=== PATIENT | male | born 1935 | race Caucasian/White ===

== ENCOUNTER → 2017-11-23 12:59 | Outpatient (CLI) | payer MEDICARE, SELFPAY ==
[2017-11-23 15:37] LABS: PSA,Total - Annual Screen 0.52 ng/mL (0.00-4.00)
== END ==
PROVIDERS: Family Provider Internal Medicine; PCP Internal Medicine; Visit Provider Radiology Radiation Oncology
DX: Z12.5 Encounter for screening for malignant neoplasm of prostate (principal); Z85.46 Personal history of malignant neoplasm of prostate
CPT/HCPCS: 36415; 84153; G0103

== ENCOUNTER → 2018-01-30 10:03 | Outpatient (CLI) | payer MEDICARE, SELFPAY ==
--- NOTE | 2018-01-30 10:08 | ECHOD_ITS ---
Reason For Study: MV regurgitation Procedure This was a 2D Doppler, Color Flow transthoracic echocardiogram. Exam performed in department. Left Ventricle Normal LV size. Left ventricular systolic function is normal. Transmitral diastolic flow velocities suggest severe (stage 3) diastolic dysfunction. The estimated ejection fraction is 60 %. No regional wall motion abnormalities noted. Right Ventricle Normal RV size. Normal systolic function. Atria The left atrium is mildly enlarged. Normal right atrium. Mitral Valve There is mild to moderate mitral annular calcification. Mild (1+) eccentric mitral valve insufficiency. Tricuspid Valve Normal tricuspid valve. Mild (1+) tricuspid valve insufficiency. Pulmonary artery systolic pressure is 40 mmHg. Aortic Valve Trisinus/trileaflet aortic valve. Mild focal aortic valve calcification. Pulmonic Valve Normal pulmonic valve. Great Vessels Normal aortic root. The pulmonary artery is normal size. Normal inferior vena cava. Pericardium/Pleural No pericardial effusion. MMode/2D Measurements & Calculations LVIDd: 4.1 cm IVSd: 1.1 cm Ao root diam: 3.0 cm LVIDs: 2.6 cm LVPWd: 1.3 cm LA dimension: 4.0 cm RVDd: 2.7 cm FS: 35.7 % LAV(MOD-bp): 74.8 ml LA A4 area: 23.5 cm2 RA A4 area: 14.2 cm2 LAV(MOD-bp) Indexed: 41.6 ml/m2 LAV(MOD-sp2): 71.3 ml LAV(MOD-sp4): 77.5 ml Doppler Measurements & Calculations MV E max george: 144.3 cm/sec Lat Peak E' George: 9.2 cm/sec Med Peak E' George: 8.5 cm/sec MV A max george: 62.1 cm/sec E/E' lat: 15.8 E/E' med: 16.9 MV E/A: 2.3 Ao V2 max: 155.7 cm/sec LV V1 max: 114.8 cm/sec PA V2 max: 97.4 cm/sec Ao max P.7 mmHg LV V1 max P.3 mmHg PI end-d george: 101.1 cm/sec TR max george: 297.2 cm/sec TR max P.5 mmHg Interpretation Summary Normal LV size. Left ventricular systolic function is normal. Transmitral diastolic flow velocities suggest severe (stage 3) diastolic dysfunction The estimated ejection fraction is 60 %. Mild (1+) eccentric mitral valve insufficiency. Mild focal aortic valve calcification. Ordering Physician: CHIKIS Referring Physician: Isabelle Patiño Performed By: Calista Morrissey, FARRUKHCS, RVT
--- NOTE | 2018-01-30 10:08 | CDU_ITS ---
Reason For Study: Carotid stenosis Rt. Velocities/BP Lt. Velocities/BP Prox CCA 79.7/17.0 cm/sec. Prox CCA 95.6/19.3 cm/sec. Mid CCA 92.6/21.7 cm/sec. Mid CCA 96.2/24.0 cm/sec. Dist CCA 99.7/26.4 cm/sec. Dist CCA 89.1/25.2 cm/sec. Prox ICA 78.0/25.8 cm/sec. Prox ICA 73.3/25.8 cm/sec. Mid ICA 70.9/23.6 cm/sec. Mid ICA 93.2/29.9 cm/sec. Dist ICA 56.4/16.3 cm/sec. Dist ICA 81.9/27.1 cm/sec. Rt. ICA/CCA = .84. Lt. ICA/CCA = .97. Prox ECA 108.0/15.2 cm/sec. Prox ECA 90.3/15.8 cm/sec. Rt. Vert. 40.6/13.8 cm/sec. Lt. Vert. 37.1/10.5 cm/sec. Right Extracranial There is intimal thickening but no significant atherosclerotic plaque noted in the right common carotid artery. There is heterogeneous, irregular atherosclerotic plaque noted in the right internal carotid artery. The right internal carotid artery is very tortuous. There is no significant atherosclerotic plaque noted in the right external carotid artery. Antegrade flow is noted in the right vertebral artery. Left Extracranial There is intimal thickening but no significant atherosclerotic plaque noted in the left common carotid artery. There is heterogeneous, irregular atherosclerotic plaque noted in the left internal carotid artery. The left internal carotid artery is very tortuous. There is heterogeneous, irregular atherosclerotic plaque noted in the left external carotid artery. Antegrade flow is noted in the left vertebral artery. Procedure Carotid Duplex [id number]. Exam performed in department. Interpretation Summary Mild (<50%) stenosis right extracranial internal carotid. Mild (<50%) stenosis left extracranial internal carotid. Flow within the vertebral arteries is antegrade bilaterally. Ordering Physician: Janina Burgos Referring Physician: Isabelle Patiño Performed By: Kandy Chiu RVT
== END ==
PROVIDERS: Family Provider Internal Medicine; PCP Internal Medicine
DX: I65.23 Occlusion and stenosis of bilateral carotid arteries (principal); I34.0 Nonrheumatic mitral (valve) insufficiency
CPT/HCPCS: 93306; 93880

== ENCOUNTER → 2018-03-13 18:48 | Outpatient (CLI) | payer MEDICARE, SELFPAY ==
--- NOTE | 2018-03-13 18:56 | CT_ITS ---
STUDY: LOW DOSE CT LUNG CANCER SCREENING REASON FOR EXAM: Male, 82 years old. 70 pack-year smoking history. RADIATION DOSAGE (If Supplied By Facility): CTDIvol = ( 3.02 ) mGy, DLP = ( 99.68 ) mGycm TECHNIQUE: No contrast was administered. Low dose technique was utilized (average mAS-38 and kVp 120). 1.25 mm axial source images with a slice interval of 1.25-mm were reconstructed in lung windows. 2.5 mm axial source images with a slice interval of 2.5-mm were reconstructed in lung windows. 5.0 mm axial source images with a slice interval of 5.0-mm were reconstructed in soft tissue windows. Nodule measured using lung windows on PACS and/or independent workstation with automated measurement of minimum and maximum diameter. Nodule measurement reported as average diameter rounded to the nearest whole number. Growth is defined as an increase ins size of greater than 1.5 mm. COMPARISON: Chest, September 25, 2013. NODULES: Nodule #: 1 Density: Solid Lung location: Right middle lobe: 0.3 cm from pleura Location in series: Series Number: 2 Image: 126 Size - D1 x D2 mm: 3 x 4 mm: 4 mm average diameter Margin: Smooth Shape: Oval Calcification: Yes Fat: No Temporal comparison: None Nodule #: 2 Density: Solid Lung location: Right lower lobe: Pleural-based Location in series: Series Number: 2 Image: 124 Size - D1 x D2 mm: 2 x 2 mm: 2 mm average diameter Margin: Smooth Shape: Round Calcification: No Fat: No Temporal comparison: None Total lung nodules (excluding granulomas): 1 Emphysema: There is mild emphysematous changes throughout both lungs. Endobronchial lesion: None Aorta: There is atherosclerotic tortuosity of the thoracic aorta without aneurysm. Coronary arteries: There is extensive coronary artery calcifications. Heart: The heart is normal in size. There are calcifications at the root of the aorta and along the mitral valve plane. Pulmonary artery: Normal. Mediastinal nodes: There is nonspecific mediastinal lymphadenopathy. The largest node, in the paratracheal region, measures 1.3 x 0.7 x 1.4 cm. There is a calcified subcarinal lymph node. Calcified nodes are also seen in the left hilum. Other chest and abdominal findings: There are degenerative changes of the thoracic spine. Calcified granulomata are seen within the spleen. CT/Low Dose CT Lung Screening IMPRESSION: Lung-RADS category 2 - Continue annual screening with LDCT in 12 months. IMPORTANT NOTES FOR USE: ACR Lung-RADS Version 1.0 Assessment Categories Release Date: January 21, 2014 Category: Coded 0-4 bases on nodule(s) with highest degree of suspicion. Negative screen is defined as categories 1 and 2; a positive screen is defined as categories 3 and 4. Category 3 and 4A nodules that are unchanged on interval CT should be coded as category 2, and individuals returned to screening in 12 months. Category 4X: Category 3 or 4 nodules with additional imaging findings that increase the suspicion of lung cancer, such as spiculation, GGN that doubles in size in 1 year, enlarged lymph notes, etc. Category Modifiers: S (significant finding unrelated to lung cancer) and C (prior history of treated lung cancer) may be added to the 0-4 Lung-RADS Electronically Signed: Alfredo Massey DO at 11:21 EDT Tel [phone], Service support ,
== END ==
PROVIDERS: Family Provider Internal Medicine; PCP Internal Medicine; Visit Provider Internal Medicine
DX: Z12.2 Encounter for screening for malignant neoplasm of respiratory organs (principal); Z87.891 Personal history of nicotine dependence
CPT/HCPCS: G0297

== ENCOUNTER → 2018-11-30 14:53 | Outpatient (CLI) | payer MEDICARE, SELFPAY | PROVIDERS: Family Provider Internal Medicine; PCP Internal Medicine; Referring Provider Radiology Radiation Oncology; Visit Provider Radiology Radiation Oncology | DX: Z12.5 Encounter for screening for malignant neoplasm of prostate (principal); C61 Malignant neoplasm of prostate | CPT/HCPCS: 36415; 84153; G0103 ==

== ENCOUNTER → 2020-02-20 11:36 | Outpatient (CLI) | payer MEDICARE, SELFPAY ==
[2019-03-05 13:06] VITALS: BMI 26.9
== END ==
PROVIDERS: PCP Internal Medicine; Referring Provider Radiology Radiation Oncology; Visit Provider Radiology Radiation Oncology
DX: Z85.46 Personal history of malignant neoplasm of prostate (principal)
CPT/HCPCS: 36415; 84153

== ENCOUNTER → 2021-07-20 10:55 | Outpatient (CLI) | payer MEDICARE, SELFPAY ==
--- NOTE | 2021-07-20 | CYSPIN_PTH ---
PATIENT: SKYLER SANTOS LOC: [facility] U#:[id number] AGE/SX: 89/M ROOM: RE07/20/[address]: Dr. Esa Krishna MD : [id number] BED: DIS: SPEC #: [id number] RECD: 07/20/21 12:46 STATUS: DARLINE RETyree #: [id number] SLAVA: 07/20/21 00:[address]: Esa Krishna DEPT: CYTOLOGY RECD BY: Nilson Lenz ENTERED: 07/20/21 12:46 SP TYPE: CYSPIN FL OTHR DR: Dr. Isabelle Patiño, DO Tissues: Urine Procedures: Pap Stain (control) Special Stain Group II Cytospin Fluid HEADER OPERATION: Not noted PRE-OP DIAGNOSIS: Gross hematuria TISSUE SUBMITTED: Urine for cytology DIAGNOSIS CYTOLOGY Urine for cytology (cytospin): Rare cluster of mildly atypical cells noted. See comment. REID:[email or web address] 07/21/2021 COMMENT Correlation with clinical findings and appropriate follow up are necessary. CYTOLOGY STUDY Slides are reviewed. CYTOLOGY GROSS Received is 55 ml of dark yellow cloudy fluid labeled with the patient's name and and designated per the requisition as urine. Submitted for cytology preparation. / dilshad 07/20/2021 TC:5 CPT: 38253
[2021-07-20 11:43] LABS: Cytology, Body Fluid / CSF SEE PATHOLOGY REPORT
[2021-07-20 11:58] LABS: PSA,Total- Diagnostic 0.17 ng/mL (0.0-4.0)
== END ==
LOC: LAB 10:58 → LABSPEC 11:33
PROVIDERS: PCP Internal Medicine; Referring Provider Urology; Visit Provider Urology
DX: C61 Malignant neoplasm of prostate (principal); R31.0 Gross hematuria
CPT/HCPCS: 36415; 84153; 88108; 88313

== ENCOUNTER → 2022-03-16 | Outpatient (CLI) | payer MEDICARE, SELFPAY ==
--- NOTE | 2022-03-16 09:02 | CDU_ITS ---
Reason For Study: Stenosis Rt. Velocities/BP Lt. Velocities/BP Prox CCA 81.2/18.6 cm/sec. Prox CCA 93.7/16.3 cm/sec. Mid CCA 93/17.3 cm/sec. Mid CCA 91.3/20 cm/sec. Dist CCA 83.9/21.3 cm/sec. Dist CCA 92.5/20 cm/sec. Prox ICA 61.7/16 cm/sec. Prox ICA 64.2/15.1 cm/sec. Mid ICA 77.3/23.9 cm/sec. Mid ICA 75.3/18.8 cm/sec. Dist ICA 74.7/21.3 cm/sec. Dist ICA 76.5/22.5 cm/sec. Rt. ICA/CCA = 0.92. Lt. ICA/CCA = 0.83. Prox ECA 86.5/8.2 cm/sec. Prox ECA 98.6/13.9 cm/sec. Rt. Vert. 37.8/9 cm/sec. Lt. Vert. 42.1/11.3 cm/sec. Right Extracranial There is homogeneous, smooth atherosclerotic plaque noted in the right common carotid artery. There is heterogeneous, irregular atherosclerotic plaque noted in the right internal carotid artery. The right internal carotid artery is very tortuous. There is heterogeneous, irregular atherosclerotic plaque noted in the right external carotid artery. Antegrade flow is noted in the right vertebral artery. Left Extracranial There is homogeneous, smooth atherosclerotic plaque noted in the left common carotid artery. There is heterogeneous, irregular atherosclerotic plaque noted in the left internal carotid artery. There is intimal thickening but no significant atherosclerotic plaque noted in the left external carotid artery. Antegrade flow is noted in the left vertebral artery. Procedure Carotid Duplex [id number]. This is a Carotid Duplex examination using B-mode, color flow and specral Doppler. Exam performed in department. VL/Carotid Duplex Ultrasound Interpretation Summary Mild (<50%) stenosis right extracranial internal carotid. Mild (<50%) stenosis left extracranial internal carotid. Flow within the vertebral arteries is antegrade bilaterally. Ordering Physician: Isabelle Patiño Referring Physician: Isabelle Patiño Performed By: Earnestine Carbone RVT
== END | disposition home or self-care (01) ==
LOC: CVS 08:57
PROVIDERS: PCP Internal Medicine; Referring Provider Internal Medicine; Visit Provider Internal Medicine
DX: I65.23 Occlusion and stenosis of bilateral carotid arteries (principal)
CPT/HCPCS: 93880

== ENCOUNTER → 2022-07-19 | Outpatient (CLI) | payer MEDICARE, SELFPAY ==
--- NOTE | 2022-07-20 05:48 | PFTCOMP ---
COMPLETE PULMONARY FUNCTION TEST INTERPRETATION Brief HPI: Patient is an 87-year-old male, currently under the care of Dr. Patiño, who presents to [facility] for complete pulmonary function tests secondary to diagnosis of COPD. Respiratory therapist reports good effort and reproducible results. Interpretation: Forced expiration spirometry shows a mild large airways obstructive ventilatory defect with an FEV1 of 108% predicted. There is a significant bronchodilator response in FVC by strict ATS criteria. Spirograms are of good quality and plateau slowly, indicating slowly emptying areas of the lungs. The respiratory flow volume loop shows decreased expiratory flow rates at all lung volumes consistent with airway obstruction. Lung volumes by body plethysmography show a normal total lung capacity at 5.49 L, 108% predicted. All other lung volumes are within normal limits. Diffusion capacity by carbon monoxide is normal at 136% predicted. The airway resistance is elevated. No previous pulmonary function tests were available for review. Impression: Partially reversible mild large airways obstructive ventilatory defect with preserved lung volumes and diffusion capacity, and a pattern consistent with chronic bronchitis
== END | disposition home or self-care (01) ==
LOC: PSN 09:27
PROVIDERS: PCP Internal Medicine; Referring Provider Internal Medicine; Visit Provider Internal Medicine
DX: J44.9 Chronic obstructive pulmonary disease, unspecified (principal)
CPT/HCPCS: 94060; 94726; 94729

== ENCOUNTER → 2022-10-21 | Outpatient (CLI) | payer MEDICARE, SELFPAY ==
--- NOTE | 2022-10-21 10:05 | CDU_ITS ---
Reason For Study: Stenosis Rt. Velocities/BP Lt. Velocities/BP Prox CCA 74.0/16.3 cm/sec. Prox CCA 81.5/20.1 cm/sec. Mid CCA 86.3/23.0 cm/sec. Mid CCA 77.3/21.2 cm/sec. Dist CCA 80.6/23.0 cm/sec. Dist CCA 65.2/20.1 cm/sec. Prox ICA 41.9/15.4 cm/sec. Prox ICA 55.1/9.7 cm/sec. Mid ICA 55.1/15.4 cm/sec. Mid ICA 60.7/19.2 cm/sec. Dist ICA 51.5/19.4 cm/sec. Dist ICA 56.6/19.2 cm/sec. Rt. ICA/CCA = 0.6. Lt. ICA/CCA = 0.8. Prox ECA 52.6/10.4 cm/sec. Prox ECA 91.2/16.3 cm/sec. Rt. Vert. 30.8/8.8 cm/sec. Lt. Vert. 40.9/9.7 cm/sec. Right Extracranial There is intimal thickening but no significant atherosclerotic plaque noted in the right common carotid artery. There is heterogeneous, irregular atherosclerotic plaque noted in the right internal carotid artery. The right internal carotid artery is very tortuous. There is heterogeneous, irregular atherosclerotic plaque noted in the right external carotid artery. Antegrade flow is noted in the right vertebral artery. Left Extracranial There is heterogeneous, irregular atherosclerotic plaque noted in the left common carotid artery. There is heterogeneous, irregular atherosclerotic plaque noted in the left internal carotid artery. The left internal carotid artery is very tortuous. There is heterogeneous, irregular atherosclerotic plaque noted in the left external carotid artery. Antegrade flow is noted in the left vertebral artery. Procedure Carotid Duplex [id number]. This is a Carotid Duplex examination using B-mode, color flow and specral Doppler. The exam was diagnostic. Exam performed in department. VL/Carotid Duplex Ultrasound Interpretation Summary Mild (<50%) stenosis right extracranial internal carotid. Mild (<50%) stenosis left extracranial internal carotid. Patent and antegrade vertebrals bilaterally. Ordering Physician: Isabelle Patiño Referring Physician: Isabelle Patiño Performed By: Ck Stapleton RVT
== END | disposition home or self-care (01) ==
LOC: CVS 10:05
PROVIDERS: PCP Internal Medicine; Referring Provider Internal Medicine; Visit Provider Internal Medicine
DX: I65.23 Occlusion and stenosis of bilateral carotid arteries (principal)
CPT/HCPCS: 93880

== ENCOUNTER → 2022-12-09 | Outpatient (CLI) | payer MEDICARE, SELFPAY ==
--- NOTE | 2022-12-09 16:00 | CT_ITS ---
STUDY: LOW DOSE CT LUNG CANCER SCREENING REASON FOR EXAM: Male, 87 years old. One pack per day smoker x72 years, history of prostate CA RADIATION DOSAGE (If Supplied By Facility): CTDIvol = ( 3.02 ) mGy, DLP = ( 100.05 ) mGycm TECHNIQUE: No contrast was administered. Low dose technique was utilized (average mAS-38 and kVp 120). 1.25 mm axial source images with a slice interval of 1.25-mm were reconstructed in lung windows. 2.5 mm axial source images with a slice interval of 2.5-mm were reconstructed in lung windows. 5.0 mm axial source images with a slice interval of 5.0-mm were reconstructed in soft tissue windows. COMPARISON: 03/13/2018 NODULES: Lung windows show underlying emphysema. A previously noted nodule in the right middle lobe is again identified on axial image 138. Since it has remained stable since 2018, no specific follow-up is needed. No new suspicious mass or nodule noted. No organized infiltrate or effusion. Thyroid gland is unremarkable. No suspicious axillary, mediastinal, or perihilar adenopathy, there are stable mediastinal lymph nodes measuring up to 1 cm in short axis dimension. There are calcified coronary vessels. No pericardial effusion. Limited cuts of the upper abdomen do not show suspicious abnormality. Bony structures show degenerative change CT/Low Dose CT Lung Screening IMPRESSION: Lung-RADS category 3 - Continue screening with LDCT in 6 months. IMPORTANT NOTES FOR USE: ACR Lung-RADS Version 1.1 Assessment Categories Release Date: 2018 Category: Coded 0-4 bases on nodule(s) with highest degree of suspicion. Negative screen is defined as categories 1 and 2; a positive screen is defined as categories 3 and 4. Category 3 and 4A nodules that are unchanged on interval CT should be coded as category 2, and individuals returned to screening in 12 months. Category 4X: Category 3 or 4 nodules with additional imaging findings that increase the suspicion of lung cancer, such as spiculation, GGN that doubles in size in 1 year, enlarged lymph notes, etc. Category Modifiers: S (significant finding unrelated to lung cancer) Electronically Signed: Michael Healy MD at 8:09 EDT ,
== END | disposition home or self-care (01) ==
LOC: CT 15:58
PROVIDERS: PCP Internal Medicine; Referring Provider Internal Medicine; Visit Provider Internal Medicine
DX: F17.210 Nicotine dependence, cigarettes, uncomplicated (principal)
CPT/HCPCS: 71271

== ENCOUNTER → 2024-02-14 | Outpatient (CLI) | payer MEDICARE, SELFPAY | END | disposition home or self-care (01) | LOC: PSN 12:37 | PROVIDERS: PCP Internal Medicine; Referring Provider Internal Medicine; Visit Provider Internal Medicine | DX: I48.91 Unspecified atrial fibrillation (principal) ==

== ENCOUNTER → 2024-03-14 | Outpatient (CLI) | payer MEDICARE, SELFPAY ==
--- NOTE | 2024-03-14 12:36 | ECHOD_ITS ---
Reason For Study: Afib Procedure This was a 2D Doppler, Color Flow transthoracic echocardiogram. Exam performed in department. Left Ventricle Normal LV size. Left ventricular systolic function is normal. The left ventricular ejection fraction is 65 %. No regional wall motion abnormalities noted. Right Ventricle Normal RV size. Normal systolic function. Atria Normal left atrium. The right atrium is moderately enlarged. Mitral Valve There is mild to moderate mitral annular calcification. Mild (1+) eccentric mitral valve insufficiency. Tricuspid Valve Normal tricuspid valve. Mild (1+) tricuspid valve insufficiency. Pulmonary artery systolic pressure is 30 mmHg. Aortic Valve Trisinus/trileaflet aortic valve. Mild focal aortic valve calcification. Pulmonic Valve Normal pulmonic valve. Great Vessels Calcified aortic root. Normal arch. The pulmonary artery is normal size. Normal inferior vena cava. Pericardium/Pleural No pericardial effusion. MMode/2D Measurements & Calculations LVIDd: 3.5 cm IVSd: 1.0 cm Ao root diam: 3.4 cm LVIDs: 2.2 cm LVPWd: 1.1 cm RVDd: 3.2 cm FS: 36.7 % LAV(MOD-bp): 53.8 ml LVAd ap4: 20.0 cm2 SV(MOD-sp4): 31.3 ml LAV(MOD-bp) Indexed: 30.4 ml/m2 LVLd ap4: 6.7 cm LAV(MOD-sp2): 58.4 ml EDV(MOD-sp4): 48.3 ml LAV(MOD-sp4): 44.8 ml EDV(sp4-el): 50.7 ml LVAs ap4: 11.1 cm2 LVLs ap4: 6.1 cm ESV(MOD-sp4): 17.0 ml ESV(sp4-el): 17.2 ml EF(MOD-sp4): 64.8 % EF(sp4-el): 66.1 % SV(sp4-el): 33.5 ml LA A4 area: 17.8 cm2 LA dimension(2D): 5.0 cm RA A4 area: 27.4 cm2 TAPSE: 2.0 cm Doppler Measurements & Calculations MV E max george: 122.5 cm/sec Lat Peak E' George: 10.4 cm/sec Med Peak E' George: 8.6 cm/sec E/E' lat: 11.8 E/E' med: 14.2 Ao V2 max: 130.0 cm/sec LV V1 max: 95.1 cm/sec PA V2 max: 90.2 cm/sec Ao max P.8 mmHg LV V1 max P.6 mmHg PA max PG (full): 1.4 mmHg Ao V2 mean: 90.7 cm/sec LV V1 mean P.1 mmHg Ao mean P.8 mmHg LV V1 mean: 67.9 cm/sec Ao V2 VTI: 24.8 cm LV V1 VTI: 20.1 cm AV (velocity ratio): 0.81 TR max george: 259.3 cm/sec TR max P.9 mmHg ECHO/Echo Complete Interpretation Summary Normal LV size. Left ventricular systolic function is normal. The left ventricular ejection fraction is 65 %. Mild focal aortic valve calcification. Mild (1+) eccentric mitral valve insufficiency. Ordering Physician: Isabelle Patiño Referring Physician: Isabelle Patiño Performed By: Chastity Novak RVT, RDCS and Student
== END | disposition home or self-care (01) ==
PROVIDERS: PCP Internal Medicine; Referring Provider Internal Medicine; Visit Provider Internal Medicine
DX: R94.31 Abnormal electrocardiogram [ECG] [EKG] (principal); I48.91 Unspecified atrial fibrillation
CPT/HCPCS: 93306

== ENCOUNTER → 2024-07-26 | Outpatient (CLI) | payer MEDICARE, SELFPAY ==
--- NOTE | 2024-07-26 14:08 | CT_ITS ---
STUDY: LOW DOSE CT LUNG CANCER SCREENING REASON FOR EXAM: Male, 89 years old. LDCT FOR LUNG CA SCREEN (Medicare) -- smoker. History of 77 year ex-smoker. RADIATION DOSAGE (If Supplied By Facility): CTDIvol = ( 3.02 ) mGy, DLP = ( 94.78 ) mGycm TECHNIQUE: No contrast was administered. Low dose technique was utilized (average mAS-38 and kVp 120). 1.25 mm axial source images with a slice interval of 1.25-mm were reconstructed in lung windows. 2.5 mm axial source images with a slice interval of 2.5-mm were reconstructed in lung windows. 5.0 mm axial source images with a slice interval of 5.0-mm were reconstructed in soft tissue windows. COMPARISON: Comparison is made with prior study dated December 09, 2022. NODULES: Stable faintly calcified 3 mm nodule in the anterior aspect of the right middle lobe as seen on axial image #120. Emphysema: No significant emphysematous changes are seen. Endobronchial lesion: None Aorta: Atherosclerotic plaque formation of the aorta. CORONARY ARTERIES: Coronary artery calcification is seen. Heart: Unremarkable Pulmonary artery: Unremarkable Mediastinal nodes: Calcified subcarinal lymph nodes in the left hilar lymph nodes. Other chest and abdominal findings: CT/Low Dose CT Lung Screening IMPRESSION: Lung-RADS category 2 - Continue annual screening with LDCT in 12 months. IMPORTANT NOTES FOR USE: ACR Lung-RADS Version 1.1 Assessment Categories Release Date: 2018 Category: Coded 0-4 bases on nodule(s) with highest degree of suspicion. Negative screen is defined as categories 1 and 2; a positive screen is defined as categories 3 and 4. Category 3 and 4A nodules that are unchanged on interval CT should be coded as category 2, and individuals returned to screening in 12 months. Category 4X: Category 3 or 4 nodules with additional imaging findings that increase the suspicion of lung cancer, such as spiculation, GGN that doubles in size in 1 year, enlarged lymph notes, etc. Category Modifiers: S (significant finding unrelated to lung cancer) Electronically Signed: Antony Brown MD at 14:49 EDT ,
== END | disposition home or self-care (01) ==
LOC: CT 14:04
PROVIDERS: PCP Internal Medicine; Referring Provider Internal Medicine; Visit Provider Internal Medicine
DX: Z87.891 Personal history of nicotine dependence (principal)
CPT/HCPCS: 71271

== ENCOUNTER → 2024-11-09 | Outpatient (CLI) | payer MEDICARE, SELFPAY ==
--- NOTE | 2024-11-09 15:06 | CDU_ITS ---
Reason For Study Reason For Study: Carotid stenosis Rt. Velocities/BP Lt. Velocities/BP Prox CCA 69.2/14.5 cm/sec. Prox CCA 83.9/15.7 cm/sec. Mid CCA 73/15.4 cm/sec. Mid CCA 89.4/21.2 cm/sec. Dist CCA 67.4/15.4 cm/sec. Dist CCA 76.2/17.9 cm/sec. Prox ICA 49.4/11.6 cm/sec. Prox ICA 29.4/6.6 cm/sec. Mid ICA 54.1/17.3 cm/sec. Mid ICA 56.4/18 cm/sec. Dist ICA 62.6/22 cm/sec. Dist ICA 52.2/15.2 cm/sec. Rt. ICA/CCA = 0.86. Lt. ICA/CCA = 0.63. Prox ECA 68.3/9.7 cm/sec. Prox ECA 89.4/13.5 cm/sec. Rt. Vert. 35.8/10.2 cm/sec. Lt. Vert. 31.5/6.6 cm/sec. Right Extracranial There is homogeneous, smooth atherosclerotic plaque noted in the right common carotid artery. There is heterogeneous, irregular atherosclerotic plaque noted in the right internal carotid artery. There is heterogeneous, irregular atherosclerotic plaque noted in the right external carotid artery. Antegrade flow is noted in the right vertebral artery. Left Extracranial There is heterogeneous, irregular atherosclerotic plaque noted in the left common carotid artery. There is heterogeneous, irregular atherosclerotic plaque noted in the left internal carotid artery. The left internal carotid artery is very tortuous. There is heterogeneous, irregular atherosclerotic plaque noted in the left external carotid artery. Antegrade flow is noted in the left vertebral artery. Procedure Carotid Duplex [id number]. This is a Carotid Duplex examination using B-mode, color flow and specral Doppler. Exam performed in department. VL/Carotid Duplex Ultrasound Interpretation Summary Mild (<50%) stenosis right extracranial internal carotid. Mild (<50%) stenosis left extracranial internal carotid. Patent and antegrade vertebrals bilaterally. Ordering Physician: Isabelle Patiño Referring Physician: Isabelle Patiño Performed By: Earnestine Carbone RVT
== END | disposition home or self-care (01) ==
LOC: CVS 15:04
PROVIDERS: PCP Internal Medicine; Referring Provider Internal Medicine; Visit Provider Internal Medicine
DX: I65.23 Occlusion and stenosis of bilateral carotid arteries (principal)
CPT/HCPCS: 93880

== ENCOUNTER 2025-08-25 12:32 | Inpatient (IN) | payer MEDICARE, SELFPAY ==
[2025-08-25] VITALS (7 sets, daily range): BP systolic 123–141; BP diastolic 62–102; PULSE 72–85; RESP 13–24; TEMP 36.7–36.8; O2SAT 95–100; BMI 24.0
--- NOTE | 2025-08-25 12:36 | EKG12_ITS ---
Test Reason : STEMI Blood Pressure : */* mmHG Vent. Rate : 73 BPM Atrial Rate : * BPM P-R Int : * ms QRS Dur : 76 ms QT Int : 380 ms P-R-T Axes : * 68 90 degrees QTcB Int : 418 ms Critical Test Result: STEMI Atrial fibrillation Septal infarct Inferior injury pattern ACUTE HI / STEMI Consider right ventricular involvement in acute inferior infarct Abnormal ECG Confirmed by Braxton Alarcon ([id number]), editor school photograph TAWANDA TOLBERT ([id number]) on 08/26/2025 8:31:58 AM Referred By: Alka Beckman Confirmed By: Braxton Alarcon
--- NOTE | 2025-08-25 12:37 | EDS_ITS ---
HPI History of Present Illness Chief Complaint: Chest Pain Informant: patient Narrative Narrative: Patient is an 89-year-old male with history of coronary artery disease (stent done in [address] [address] Burgos) presenting with hot flash, episode of lightheadedness and chest discomfort that occurred this morning as well as some shortness breath of the past few days. States he feels that his prior CA. Called EMS when he felt lightheaded at [facility]. Prearrival EKG concerning for inferior CA with reciprocal depressions in 1 and aVL. STEMI alert was called. Patient currently denies any significant chest pain or pressure. Received 4 baby aspirin as well as 4000 of heparin and route. Cardiology at the bedside as well for initial evaluation. Patient notes he has had a recent cough/URI symptoms. Attributed show he has a history of COPD. Prior Similar Symptoms: Yes and With Prior [facility] Medical History Encounter for tobacco use cessation counseling Smoker Negative depression screening Diabetes type 2 Chronic anticoagulation Coronary artery disease Arthralgia Low HDL (under 40) CA in situ prostate Encounter for well adult exam with abnormal findings Medication side effect History of transient ischemic attack Memory change Carotid stenosis, bilateral Witnessed episode of apnea Kidney stone Cigar smoker Atherosclerosis Hemorrhoids without complication Non-rheumatic mitral regurgitation Atherosclerotic heart disease of [place] coronary artery without angina pectoris Presence of stent in coronary artery (~06/16/12) History of kidney stones COPD (chronic obstructive pulmonary disease) Diverticulosis Type 2 diabetes mellitus without complication History of prostate cancer Carotid stenosis Mitral regurgitation HLD (hyperlipidemia) Coronary artery disease involving [place] coronary artery Home Medications ?Medication ?Instructions ?Recorded ?Last Taken ?Type nitroglycerin 0.4 mg sublingual 0.4 mg sublingual Q5-1 5M PRN chest 03/10/21 Unknown Rx tablet (Nitrostat) pain #25 tabs atorvastatin 80 mg tablet 80 mg PO QHS #90 tabs Unknown Rx lisinopril 2.5 mg tablet 2.5 mg PO DAILY #90 tabs Unknown Rx metoprolol tartrate 25 mg tablet 12.5 mg (1/2 x 25 mg) PO BID #30 02/05/22 Unknown Rx tabs apixaban 2.5 mg tablet (Eliquis) 2.5 mg PO BID #60 tab s 03/28/25 Unknown Rx ascorbic acid (vitamin C) 500 mg 1,000 mg PO DAILY Unknown History tablet donepezil 5 mg tablet 5 mg PO QDAY 08/16/25 Unknow n History fluticasone fur. 100 mcg-umeclid 1 ea inhalation QDAY 08/16/25 Unknown History 62.5 mcg-vilant 25 mcg inhalat.powder (Trelegy Ellipta) Allergy/AdvReac Type Severity Reaction Status Date / Time No Known Allergies Allergy Verified 08/25/25 12:35 Family History Mother Diabetes Brother Diabetes Myocardial infarction Father , Before age 55 Myocardial infarction CAD (coronary artery disease) Surgical History Presence of coronary angioplasty implant and graft (~06/16/12) H/O coronary angioplasty Social History adopted: No household members: spouse current occupational status: retired Smoking Status: Current every day smoker tobacco type: cigars per week: 7 Smokeless tobacco user: other alcohol intake: never substance use type: does not use caffeine: Yes what type of physical activity do you participate in: none and walking seatbelt use: always do you feel safe at home: Yes ROS ROS ED Constitutional Constitutional ED: Reports sweats; Denies chills or fever(s) Cardiovascular Cardiovascular: Reports as per HPI and chest pain Respiratory/Chest Respiratory/Chest: Reports cough, dyspnea and dyspnea on exertion Musculoskeletal Musculoskeletal: Denies arthralgias or myalgias Hematologic/Lymphatic Hematologic/Lymphatic: Reports easy bleeding, easy bruising and other Details: On Eliquis EXAM Physical Exam Const Positive well nourished and well developed General Appearance ED: well developed and NAD HEENT Reports moist mucous membranes Neck supple and no JVD Chest Wall inspection of chest normal and palpation of chest normal Resp normal respiratory effort Resp Narrative: Coarse breath sounds, intermittent hacking cough Cardio regular rate, regular rhythm and no murmurs Cardio Narrative: 2+ radial and DP pulses present GI normal to inspection, nondistended, normoactive bowel sounds and soft to palpation Extremity normal to inspection General Extremety ED: Negative for edema General Extremity: Negative for edema Neuro oriented x3 Sensorium / Orientation: awake and alert Motor Exam: Negative for general weakness Psych mental status grossly normal Skin no rashes or lesions noted and no wounds Heart Score History: Highly Suspicious ECG: Significant ST-Depression Age: >/= 65 years Risk Factors: >/= 3 Risk Factors or History of CAD Score: 8 MDM MDM MDM Narrative Medical decision making narrative: Patient evaluated for episode of what sounds like near syncope this morning with sweating and lightheadedness while at [facility]. States he has been short of breath for couple days. EKG obtained prearrival consistent with inferior STEMI. STEMI alert called. Patient received heparin and aspirin and route. He is already anticoagulated on Eliquis will hold off on antiplatelet therapy per cardiology. Patient is given nitroglycerin as a changes appear in inferior leads. Patient then transferred to Resident Physician for cardiac catheterization and further cardiac intervention as needed. Case discussed with Dr. Beckman and hospitalist Dr. Palomino. Rhythm Strip Rhythm Strip: Sinus Rhythm Rate: 73 Ectopy: None EKG Initial EKG: Attestation: I personally reviewed and interpreted this EKG as follows: Comments: Atrial fibrillation rate [address] elevations in inferior leads with ST depressions in 1 and aVL as well as a biphasic T wave in V2 Acute STEMI Prior EKG tracings: available for review Prior: Changed Management Discussion w/another healthcare provider: Hospitalist and Flitch Hanger (Radiation Officer ) Critical Care Time Critical Care Time: Yes Critical care time (excluding procedures): 30-74 minutes (20), Discussing w/Patient &/or Family/Bail Agent and Arranging Admission or Transfer Discharge Plan Dx/Rx/DC Orders Clinical Impression: ST elevation (STEMI) myocardial infarction, Dyspnea, Atrial fibrillation, Presence of stent in coronary artery, COPD (chronic obstructive pulmonary disease) Disposition Disposition: Acute Care Hospital [facility]
--- NOTE | 2025-08-25 12:40 | PCM.HP.STD ---
HPI - General General Date of Admission: 08/25/25 Date of Service: 08/26/25 Chief Complaint: Chest pain HPI Narrative SKYLER SANTOS, is a 89 M who presented to the emergency department with 3-day history of intermittent chest pain. Patient in addition had experience some shortness of breath. Patient was apparently at [facility] when he felt lightheaded the EMS squad was called. EKG obtained came back consistent with STEMI. Did receive aspirin prior to arrival. With assessment of acute STEMI involving inferior wall was made STEMI alert activated patient underwent emergency left heart catheterization [facility] Medical History (Updated 08/26/25 @ 07:[address] Norman Palomino MD) Dementia Encounter for tobacco use cessation counseling Smoker Negative depression screening Diabetes type 2 Chronic anticoagulation Coronary artery disease Arthralgia Low HDL (under 40) CA in situ prostate Encounter for well adult exam with abnormal findings Medication side effect History of transient ischemic attack Memory change Carotid stenosis, bilateral Witnessed episode of apnea Kidney stone Cigar smoker Atherosclerosis Hemorrhoids without complication Non-rheumatic mitral regurgitation Atherosclerotic heart disease of [place] coronary artery without angina pectoris Presence of stent in coronary artery (~06/16/12) History of kidney stones COPD (chronic obstructive pulmonary disease) Diverticulosis Type 2 diabetes mellitus without complication History of prostate cancer Carotid stenosis Mitral regurgitation HLD (hyperlipidemia) Coronary artery disease involving [place] coronary artery Home Medications ?Medication ?Instructions ?Recorded ?Last Taken ?Type nitroglycerin 0.4 mg sublingual 0.4 mg sublingual Q5-15M PRN chest 03/10/21 Unknown Rx tablet (Nitrostat) pain #25 tabs atorvastatin 80 mg tablet 80 mg PO QHS #90 tabs 10/15/21 Unknown Rx lisinopril 2.5 mg tablet 2.5 mg PO DAILY #90 tabs 10/15/21 Unknown Rx metoprolol tartrate 25 mg tablet 12.5 mg (1/2 x 25 mg) PO BID #30 02/05/22 Unknown Rx tabs apixaban 2.5 mg tablet (Eliquis) 2.5 mg PO BID #60 tabs 03/28/25 Unknown Rx ascorbic acid (vitamin C) 500 mg 1,000 mg PO DAILY 08/16/25 Unknown History tablet donepezil 5 mg tablet 5 mg PO QDAY 08/16/25 Unknown History fluticasone fur. 100 mcg-umeclid 1 ea inhalation QDAY 08/16/25 Unknown History 62.5 mcg-vilant 25 mcg inhalat.powder (Trelegy Ellipta) Allergy/AdvReac Type Severity Reaction Status Date / Time No Known Allergies Allergy Verified 08/25/25 12:35 Family History Mother Diabetes Brother Diabetes Myocardial infarction Father , Before age 55 Myocardial infarction CAD (coronary artery disease) Surgical History Presence of coronary angioplasty implant and graft (~06/16/12) H/O coronary angioplasty Social History adopted: No household members: spouse current occupational status: retired Smoking Status: Current every day smoker tobacco type: cigars per week: 7 Smokeless tobacco user: other alcohol intake: never substance use type: does not use caffeine: Yes what type of physical activity do you participate in: none and walking seatbelt use: always do you feel safe at home: Yes ROS ROS Narrative GENERAL: denies fever, HEENT: denies headache, RESPIRATORY: shortness of breath, dyspnea on exertion CARDIAC: chest pain, palpitations, GASTROINTESTINAL: denies abdominal pain, GENITOURINARY: denies dysuria, urgency, EXTREMITY: denies swelling MUSCULOSKELETAL: denies current joint pain NEUROLOGIC: denies focal numbness, HEMATOLOGIC: denies easy bruising a INTEGUMENT: denies rashes PSYCHIATRIC: denies suicidal ideation Vital Signs Vital Signs Vital Signs: 08/25/25 12:33 Temperature 98.2 F Temperature Source Oral Pulse Rate 85 Respiratory Rate 24 H Blood Pressure 141/81 H Blood Pressure Mean 101 Oxygen Delivery Method Room Air Physical Exam Narrative GENERAL: cooperative HEENT: Atraumatic; normocephalic EYES; Anicteric, Normal Conjunctiva NECK; supple, normal thyroid, RESPIRATORY: Diminished to auscultation CARDIOVASCULAR: Regular S1 S2, GI: soft, normoactive bowel sounds, : No Renal angle tenderness; EXTREMITIES: No edema, no clubbing, MUSCULOSKELETAL: no muscle wasting NEURO: Awake; no lateralizing signs. SKIN: No Rash PSYCH; Flat affect Results Lab / Micro Data 08/25/25 12:30 08/25/25 12:30 Assessment & Plan Assessment/Plan (1) ST elevation (STEMI) myocardial infarction: QUALIFIERS: Involved coronary artery: right coronary artery Qualified Code(s): I21.11 - ST elevation (STEMI) myocardial infarction involving right coronary artery PLAN: Plan Patient is an 89-year-old gentleman who presented with chest pain and shortness of breath EKG obtained demonstrated acute ST segment elevation UT involving the inferior wall 1. Acute ST segment elevation UT ? Patient underwent emergency left heart catheterization. Findings discussed with Dr. Beckman with cardiology. Findings as below 1. Left main is heavily calcified with extension of calcification into left main into left circumflexLeft main angiographically has no significant atherosclerosisIt bifurcates into LAD and left circumflex. 2. Left anterior descending proximal stent is patentWith a diffuse atherosclerosis noted in the mid and the distal segment of the LAD. At the site of the Pharis diagonal there is a lesion in the mid LAD which is around 60 to 70%. With segmental lesion noted distal to that which is around 50-60. 3. The left circumflex is a large vessel and angiographically the proximal circumflex had nonobstructive sclerosis from 30-40.After the previous large OM1 there is a lesion in the ostial portion of the circumflex at the mid segment That is at least around 60 to 70% 4. RCA is a large dominant heavily calcified and very tortuous vessel with PTCA to the subtotal 99% proximal reducing the lesion to around 70%. Due to heavy calcification and inability to pass a balloon at the site. Dr. Mckeon did arrange for patient to be transferred to [place].. Patient was accepted for transfer for and discharged once bed became available 2. Coronary artery disease ? With previous ST segment elevation UT 2011 treated with a MELINDA to an ostial LAD lesion with [place] Balloon arthrectomy to mid LAD lesion with residual stenosis which has since been treated medically 3. Valvular heart disease ? With history of mitral valve regurgitation 4. Paroxysmal atrial fibrillation Controlled on metoprolol patient is on systemic anticoagulation with apixaban 5. Hypertension ? Blood pressure controlled, home medications continued with dose adjustment as needed 6. Dyslipidemia ?Patient is on statin therapy, continued at home dose 7. MCI ? Patient is on donepezil 8. COPD 9. History of prostate cancer Time spent in the patient's overall evaluation,decision-making process, review of diagnostic data, adjustment of management, discussion with other providers, nursing nursing and ancillary staff involved in patient's care documentation, 85 Minutes Charges/Coding Visit Charges OBSV E&M: 70242 Observ/hosp same date L3
--- NOTE | 2025-08-25 12:45 | CM.ED ---
Social Work Date of referral: 08/25/25 Reason for referral: STEMI alert Chainstitch Pants Outseamer responded to STEMI alert and provided support to patient's and was able to bring patient's in the room with him for added support while patient's son, Pepe parked the car. Chainstitch Pants Outseamer then walked patient's to the receiver/laborer waiting room. Patient's expressed appreciation, thanked social work msw and denied any other needs/concerns at this time. Zeynep Dupree, EMERGENCY WORKER, DOSIER OPERATOR
[2025-08-25 12:51] LABS: Hematocrit 44.2 % (40-54); Hemoglobin 14.3 g/dL (13.0-16.5); Immature Granulocytes Count 0.020 X10^3/uL (0.0-0.0); Mean Corp Hgb Conc 32.4 g/dL (32-36); Mean Corpuscular Volume 94.0 fL (80-94); Mean Platelet Vol. 11.2 fl (6.2-12.0); NRBC Flagged by Analyzer 0 % (0-5); Platelet Count 166 K/mm3 (150-450); RBC Distribution Width CV 13.5 % (11.6-14.6); RBC Distribution Width SD 46.8 fl (35.1-43.9); Red Blood Count 4.70 M/mm3 (4.6-6.2); White Blood Count 8.1 K/mm3 (4.4-11.0)
--- OUTSIDE RECORDS SUMMARY | 2025-08-25 12:56 | XMS RPT_ITS | CCD ---
Author Organization [facility] Care Team Providers Care Medical Laboratory Technologist Name Role Phone Isabelle Patiño Unavailable SHANIA Israel Unavailable Unavailable Messenger, Richelle Unavailable Unavailable Unavailable Unavailable Gravius, Yen Unavailable Unavailable Isabelle Patiño Unavailable Gravius, Yen Unavailable Unavailable Messenger, Richelle Unavailable Unavailable Unavailable Unavailable Unavailable Unavailable Gravius, Yen Unavailable Unavailable SHAYLA, [facility] Admitting Unavaila ble SHAYLA, [facility] Attending Unavaila ble SHAYLA, [facility] Primary Care Unavaila ble James, Candie Unavailable Unavailable Messenger, Richelle Unavailable Unavailable Hollie Lyles Unavailable Unavailable Unavailable Unavailable Isabelle Patiño DO Unavailable Gravius GEAR KEEPER, Yen Unavailable Unavailable Cross SHILO Hollie Unavailable Unavailable Messenger Richelle BURK Unavailable Unavailable James PATTERN AND CHAIN MAKER, Candie Unavailable Unavailable Unavailable Unavailable Jerman PUBLIC POLICY ANALYST, Elly Unavailable Ugo Dudley LPN Unavailable Unavailable Isabelle Patiño DO Unavailable Emily Onofre MA Unavailable Unavailable Unavailable Unavailable Dr. Isabelle Patiño Primary Care Provider [phone] Dr. Isabelle Patiño Referring Provider Dr. Isabelle Patiño Other Provider Dr. En Ahn Attending Provider [phone] Adolfo WYNN, Kayela Unavailable Unavailable Dr. Isabelle Patiño Primary Care Provider Dr. Isabelle Patiño Referring Provider Dr. Isabelle Patiño Other Provider Dr. En Ahn Attending Provider Dr. Bronson Mcgowan Attending Provider Kaylyn DO, Isabelle Attending Unavailable Kaylyn DO, Isabelle Referring Unavailable Kaylyn DO, Isabelle Consulting Unavailable [place] PATTERN AND CHAIN MAKER, Jefferson Unavailable Unavailable Jhonatan PATTERN AND CHAIN MAKER, SHANIA Unavailable Unavailable Ekaterina Doyle MD Unavailable Abdirahman Sosa Unavailable Abraham Helm ([facility]) Primary Care Provider [phone] Kaylyn BULLARD, Dr. Walton Primary Care Provider Dr. Isabelle Patiño DO Referring Provider Ray STUCCO LABORER-C, Pawel Attending Provider Kaylyn, Isabelle Primary Care Unavailable Kaylyn, Isabelle Referring Unavailable Bronson Mcgowan Attending Unavailable Kaylyn, Isabelle Referring Unavailable Kaylyn, Isabelle Attending Unavailable Kaylyn, Isabelle Primary Care Unavailable Kaylyn, Isabelle Primary Care Unavailable Kaylyn, Isabelle Referring Unavailable MoomaPawel salmeron Attending Unavailable Kaylyn, Isabelle Primary Care Unavailable Kaylyn, Isabelle Referring Unavailable Nagajothi, Nagapradee Attending Unavailabl e Kaylyn, Isabelle Primary Care Unavailable Kaylyn, Isabelle Referring Unavailable Nagajothi, Nagapradee Attending Unavailabl e Kaylyn, Isabelle Primary Care Unavailable Kaylyn, Isabelle Referring Unavailable Kaylyn, Isabelle Attending Unavailable Allergies Allergy Classification Reported Allergen(s) Allergy Type Date of Onset Reaction(s) Facility NEGATED: Highlighted row has been ruled out! (1 source) allergy to substance 4 [facility] Work Phone: NEGATED: Highlighted row has been ruled out! (1 source) drug allergy [facility] Work Phone: NEGATED: Highlighted row has been ruled out! (1 source) allergy to substance 4 [facility] Work Phone: NEGATED: Highlighted row has been ruled out! (1 source) drug allergy [facility] Work Phone: NEGATED: Highlighted row has been ruled out! (1 source) Allergy to substance (finding) [facility]; [facility] Work Phone: NEGATED: Highlighted row has been ruled out! (1 source) Allergy to drug (finding) [facility]; [facility] Work Phone: NEGATED: Highlighted row has been ruled out! (1 source) Allergy to substance (finding) [facility]; [facility] Work Phone: NEGATED: Highlighted row has been ruled out! (1 source) Allergy to drug (finding) [facility]; [facility] Work Phone: NEGATED: Highlighted row has been ruled out! (1 source) Allergy to substance (finding) [facility]; [facility] Work Phone: NEGATED: Highlighted row has been ruled out! (1 source) Allergy to drug (finding) [facility]; [facility] Work Phone: NEGATED: Highlighted row has been ruled out! (1 source) Allergy to substance (finding) [facility]; [facility] Work Phone: NEGATED: Highlighted row has been ruled out! (1 source) Allergy to drug (finding) [facility]; [facility] Work Phone: NEGATED: Highlighted row has been ruled out! (1 source) Allergy to substance (finding) 4 [facility]; [facility] Work Phone: NEGATED: Highlighted row has been ruled out! (1 source) Allergy to drug (finding) [facility]; [facility] Work Phone: NEGATED: Highlighted row has been ruled out! (1 source) Allergy to substance (finding) [facility]; [facility] Work Phone: NEGATED: Highlighted row has been ruled out! (1 source) Allergy to drug (finding) [facility]; [facility] Work Phone: NEGATED: Highlighted row has been ruled out! (1 source) Allergy to substance (finding) [facility]; [facility] Work Phone: NEGATED: Highlighted row has been ruled out! (1 source) Allergy to drug (finding) [facility]; [facility] Work Phone: NEGATED: Highlighted row has been ruled out! (1 source) Allergy to substance (finding) [facility]; [facility] Work Phone: NEGATED: Highlighted row has been ruled out! (1 source) Allergy to drug (finding) [facility]; [facility] Work Phone: NEGATED: Highlighted row has been ruled out! (1 source) Allergy to substance (finding) [facility]; [facility] Work Phone: NEGATED: Highlighted row has been ruled out! (1 source) Allergy to drug (finding) [facility]; [facility] Work Phone: NEGATED: Highlighted row has been ruled out! (1 source) Allergy to substance (finding) [facility]; [facility] Work Phone: NEGATED: Highlighted row has been ruled out! (1 source) Allergy to drug (finding) [facility]; [facility] Work Phone: NEGATED: Highlighted row has been ruled out! (1 source) Allergy to substance (finding) [facility]; [facility] Work Phone: NEGATED: Highlighted row has been ruled out! (1 source) Allergy to drug (finding) [facility]; [facility] Work Phone: NEGATED: Highlighted row has been ruled out! (1 source) Allergy to substance (finding) [facility]; [facility] Work Phone: NEGATED: Highlighted row has been ruled out! (1 source) Allergy to drug (finding) [facility]; [facility] Work Phone: NEGATED: Highlighted row has been ruled out! (1 source) Allergy to substance (finding) [facility]; [facility] Work Phone: NEGATED: Highlighted row has been ruled out! (1 source) Allergy to drug (finding) [facility]; [facility] Work Phone: NEGATED: Highlighted row has been ruled out! (1 source) Allergy to substance (finding) [facility]; [facility] Work Phone: NEGATED: Highlighted row has been ruled out! (1 source) Allergy to drug (finding) [facility]; [facility] Work Phone: NEGATED: Highlighted row has been ruled out! (1 source) Allergy to substance (finding) [facility]; [facility] Work Phone: NEGATED: Highlighted row has been ruled out! (1 source) Allergy to drug (finding) [facility]; [facility] Work Phone: NEGATED: Highlighted row has been ruled out! (1 source) Allergy to substance (finding) [facility]; [facility] Work Phone: NEGATED: Highlighted row has been ruled out! (1 source) Allergy to drug (finding) [facility]; [facility] Work Phone: NEGATED: Highlighted row has been ruled out! (1 source) Allergy to substance (finding) [facility]; [facility] Work Phone: NEGATED: Highlighted row has been ruled out! (1 source) Allergy to drug (finding) [facility]; [facility] Work Phone: NEGATED: Highlighted row has been ruled out! (1 source) Allergy to substance (finding) 4 [facility]; [facility] Work Phone: NEGATED: Highlighted row has been ruled out! (1 source) Allergy to drug (finding) [facility]; [facility] Work Phone: NEGATED: Highlighted row has been ruled out! (1 source) Allergy to substance (finding) [facility]; [facility] Work Phone: NEGATED: Highlighted row has been ruled out! (1 source) Allergy to drug (finding) [facility]; [facility] Work Phone: NEGATED: Highlighted row has been ruled out! (1 source) Allergy to substance (finding) [facility]; [facility] Work Phone: NEGATED: Highlighted row has been ruled out! (1 source) Allergy to drug (finding) [facility]; [facility] Work Phone: NEGATED: Highlighted row has been ruled out! (1 source) Allergy to substance (finding) [facility]; [facility] Work Phone: NEGATED: Highlighted row has been ruled out! (1 source) Allergy to drug (finding) [facility]; [facility] Work Phone: NEGATED: Highlighted row has been ruled out! (1 source) Allergy to substance (finding) 4 [facility]; [facility] Work Phone: NEGATED: Highlighted row has been ruled out! (1 source) Allergy to drug (finding) [facility]; [facility] Work Phone: NEGATED: Highlighted row has been ruled out! (1 source) Allergy to substance (finding) [facility]; [facility] Work Phone: NEGATED: Highlighted row has been ruled out! (1 source) Allergy to drug (finding) [facility]; [facility] Work Phone: NEGATED: Highlighted row has been ruled out! (1 source) Allergy to substance (finding) [facility]; [facility] Work Phone: NEGATED: Highlighted row has been ruled out! (1 source) Allergy to drug (finding) [facility]; [facility] Work Phone: NEGATED: Highlighted row has been ruled out! (1 source) Allergy to substance (finding) [facility]; [facility] Work Phone: NEGATED: Highlighted row has been ruled out! (1 source) Allergy to drug (finding) [facility]; [facility] Work Phone: NEGATED: Highlighted row has been ruled out! (1 source) Allergy to substance (finding) [facility]; [facility] Work Phone: NEGATED: Highlighted row has been ruled out! (1 source) Allergy to drug (finding) [facility]; [facility] Work Phone: NEGATED: Highlighted row has been ruled out! (1 source) Allergy to substance (finding) [facility]; [facility] Work Phone: NEGATED: Highlighted row has been ruled out! (1 source) Allergy to drug (finding) [facility]; [facility] Work Phone: NEGATED: Highlighted row has been ruled out! (1 source) Allergy to substance (finding) [facility]; [facility] Work Phone: NEGATED: Highlighted row has been ruled out! (1 source) Allergy to drug (finding) [facility]; [facility] Work Phone: NEGATED: Highlighted row has been ruled out! (1 source) Allergy to substance (finding) [facility]; [facility] Work Phone: NEGATED: Highlighted row has been ruled out! (1 source) Allergy to drug (finding) [facility]; [facility] Work Phone: NEGATED: Highlighted row has been ruled out! (1 source) Allergy to substance (finding) 4 [facility]; [facility] Work Phone: NEGATED: Highlighted row has been ruled out! (1 source) Allergy to drug (finding) [facility]; [facility] Work Phone: Medications Current Medications Medication Drug Class(es) Dates Sig (Normalized) Sig (Original) apixaban 2.5 mg oral tablet (2 sources) Factor Xa Inhibitor Start: 03-13-2024 End: 03-28-2025 take 1 tablet by mouth twice daily Apixaban (Eliquis) 2.5 mg tablet Active 2.5 mg PO TWICE A DAY 60 11 March 28, 2025 9:12am ascorbic acid 500 mg oral tablet (3 sources) Vitamin C Start: 03-23-2022 take 1 tablet by mouth once daily Ascorbic Acid (Vitamin C) 500 mg tablet Active 500 mg PO DAILY March 23, 2022 12:00am aspirin 81 mg delayed release oral tablet (20 sources) Nonsteroidal Anti-inflammatory Drug Start: 02-20-2014 take 1 tablet by mouth once daily Aspirin 81 MG tablet Active 81 mg PO DAILY@0800 February 20, 2014 12:00am nitroglycerin 0.4 mg sublingual tablet (20 sources) Nitrate Vasodilator Start: 02-27-2019 End: 03-10-2021 Nitroglycerin (Nitrostat) 0.4 mg tablet, sublingual Active 0.4 mg SL every 5 to 15 minutes as needed for chest pain 18 12March 10, 2021 1:10pm Start: 02-27-2019 End: 03-10-2021 Nitroglycerin (Nitrostat) 0. 4 mg tablet, sublingual Active 0.4 MG SL every 5 to 15 minutes March 10, 2021 12:10pm Start: 04-10-2015 nitroglycerin sublingual (NITROQUICK) 0.4 mg SL tablet Dissolve under the tongue. 0 04/10/2015 Active Completed/Discontinued Medications Medication Drug Class(es) Dates Sig (Normalized) Sig (Original) [id number] 60 actuat albuterol 0.09 mg/actuat metered dose inhaler (20 sources) beta2-Adrenergic Agonist Start: 10-17-2009 Start: 10-17-2009 Start: 10-17-2009 VENTOLIN HFA, 108 (90 Base)MCG/ACT (Inhalation Aerosol Solution) 2 (two) Aerosol Soln every six hours, as needed for 0 days Quantity: 1 {Aerosol_Soln} Refills: 0 Ordered: 16-Jan-2010 Richelle Campos RN Start : 17-Oct-2009 Inactive Comments: Medication taken as needed. Comment on above: Medication taken as needed. amoxicillin 875 mg / clavula nidio 125 mg oral tablet (20 sources) Penicillin-class Antibacterial Start: 03-09-2011 End: 03-23-2011 Start: 03-09-2011 End: 03-23-2011 take 1 tablet by mouth twice daily AUGMENTIN, 875-125MG (Oral Tablet) 1 Tablet bid for 14 days Quantity: 28 Refills: 0 Ordered: 09-Mar-2011 Jerman CASANOVA Anna Lara Start : 09-Mar-2011 End : 23-Mar-2011 Inactive atorvastatin 80 mg oral tablet (20 sources) HMG-CoA Reductase Inhibitor Start: 02-20-2014 End: 10-15-2021 take 1 tablet by mouth at bedtime Atorvastatin 80 mg tablet Discontinued 80 mg PO AT BEDTIME 30 April 04, 2019 12:05pm March 04, 2020 11:47am 120 actuat budesonide 0.16 mg/actuat / formoterol fumarate 0.0045 mg/actuat metered dose inhaler (20 sources) Corticosteroid, beta2-Adrenergic Agonist Start: 06-20-2013 End: 02-14-2018 Start: 06-20-2013 End: 02-14-2018 Start: 06-20-2013 End: 02-14-2018 Symbicort 160-4.5 MCG/ACT In halation Aerosol 1 Aerosol bid for 0 days Quantity: 1 {Aerosol} Refills: 0 Ordered: 14-Feb-2018 Richelle Campos RN Start : 20-Jun-2013 End : 14-Feb-2018 Inactive 28 actuat budesonide 0.16 mg/actuat / formoterol fumarate 0.0048 mg/actuat / glycopyrrolate 0.009 mg/actuat metered dose inhaler (11 sources) Corticosteroid, beta2-Adrenergic Agonist Start: 11-29-2022 12 hr buPROPion hydrochloride 150 mg extended release oral tablet (20 sources) Aminoketone Start: 07-25-2018 End: 03-04-2020 take 1 tablet by mouth twice daily Bupropion Hcl 150 mg tablet sustained-release 12 hr Discontinued 150 mg PO TWICE A DAY February 27, 2019 12:00am March 04, 2020 9:48am Start: 02-14-2018 take 1 tablet by neri twice daily BuPROPion HCl ER (SR) 150 MG Oral Tablet Extended Release 12 Hour 1 (one) Tablet Tablet bid for 0 days Quantity: 60 {Tablet} Refills: 2 Ordered: 14-Feb-2018 Richelle Campos LPN Start : 14-Feb-2018 Active clopidogrel 75 mg oral tablet (20 sources) P2Y12 Platelet Inhibitor Start: 02-20-2014 End: 03-22-2023 take 1 tablet by mouth once daily Clopidogrel 75 mg tablet Discontinued 75 mg PO DAILY 90 3 October 15, 2021 5:40pm March 22, 2023 11:54am 14 actuat fluticasone furoate 0.2 mg/actuat / vilanterol 0.025 mg/actuat dry powder inhaler (20 sources) Corticosteroid, beta2-Adrenergic Agonist Start: 11-12-2015 End: 02-14-2018 Start: 11-12-2015 End: 02-14-2018 Start: 11-12-2015 End: 02-14-2018 Breo Ellipta 200-25 MCG/INH Inhalation Aerosol Powder Breath Activated 1 (one) Aero Pow Br Act Aero Pow Br Act qd for 0 days Quantity: 1 {Inhaler} Refills: 0 Ordered: 14-Feb-2018 Richelle Campos RN Start : 12-Nov-2015 End : 14-Feb-2018 Inactive levoFLOXacin 500 mg oral tablet (20 sources) Quinolone Antimicrobial Start: 03-08-2011 End: 03-18-2011 lisinopril 2.5 mg oral tablet (20 sources) Angiotensin Converting Enzyme Inhibitor Start: 02-20-2014 End: 07-16-2022 take 1 tablet by mouth once daily Lisinopril 2.5 mg tablet Discontinued 2.5 mg PO DAILY 30 April 04, 2019 12:06pm March 04, 2020 11:47am Men's Multivitamin (17 sources) metoprolol tartrate 25 mg oral tablet (20 sources) beta-Adrenergic Travis Start: 07-14-2023 Start: 02-22-2023 Start: 07-09-2022 Start: 03-04-2022 Start: 03-26-2020 Start: 03-26-2020 take 0.5 tablet by m outh twice daily Metoprolol Tartrate 25 MG Oral Tablet 1/2 Tablet bid for 30 days Quantity: 30 {Tablet} Refills: 3 Ordered: 26-Mar-2020 Isabelle Patiño DO, DO, Kathleen Start : 26-Mar-2020 Active Start: 07-20-2019 take 0.5 tablet by m outh twice daily Metoprolol Tartrate 25 MG Oral Tablet 1/2 Tablet bid for 30 days Quantity: 30 {Tablet} Refills: 3 Ordered: 20-Jul-2019 Isabelle Patiño DO, DO, Kathleen Start : 20-Jul-2019 Active Start: 03-15-2019 take 0.5 tablet by m outh twice daily Metoprolol Tartrate 25 MG Oral Tablet 1/2 Tablet bid for 30 days Quantity: 30 {Tablet} Refills: 3 Ordered: 15-Mar-2019 Isabelle Patiño DO, DO, Kathleen Start : 15-Mar-2019 Active Start: 11-13-2018 take 0.5 tablet by m outh twice daily Metoprolol Tartrate 25 MG Oral Tablet 1/2 Tablet bid for 30 days Quantity: 30 {Tablet} Refills: 3 Ordered: 13-Nov-2018 Isabelle Patiño DO, DO, Kathleen Start : 13-Nov-2018 Active Start: 07-07-2018 take 0.5 tablet by m outh twice daily Metoprolol Tartrate 25 MG Oral Tablet 1/2 Tablet bid for 30 days Quantity: 30 {Tablet} Refills: 3 Ordered: 07-Jul-2018 Isabelle Patiño DO, DO, Kathleen Start : 07-Jul-2018 Active Start: 02-20-2014 End: 02-05-2022 Metoprolol Tartrate 25 mg ta blet Active 12.5 mg PO TWICE A DAY 25 08February 05, 2022 3:07pm Start: 02-20-2014 End: 02-05-2022 take 12.5 mg by mouth twice daily Metoprolol Tartrate Discontinued 12.5 MG PO TWICE A DAY March 04, 2021 12:13pm February 05, 2022 2:07pm Multivitamin (Daily Multi-Vitamin) tablet (4 sources) Start: 02-27-2019 End: 03-04-2020 Multivitamin (Daily Multi-Vitamin) tablet Discontinued 1 {tbl} PO DAILY February 27, 2019 12:00am March 04, 2020 9:48am Start: 02-27-2019 End: 03-04-2020 take 1 tablet by mouth once daily Multivitamin (Daily Multi-Vitamin) tablet Discontinued 1 TABLET PO DAILY February 26, 2019 11:00pm March 04, 2020 8:48am Start: 02-27-2019 End: 03-04-2020 take 1 tablet by mouth once daily Multivitamin (Daily Multi-Vitamin) tablet Discontinued 1 TABLET PO DAILY February 27, 2019 12:00am March 04, 2020 9:48am Multivitamin Men (2 sources) predniSONE 20 mg oral tablet (20 sources) Corticosteroid Start: 10-17-2009 simvastatin 20 mg oral table t (20 sources) HMG-CoA Reductase Inhibitor Start: 07-16-2010 End: 10-22-2010 tiotropium 0.018 mg inhalati on powder (20 sources) Anticholinergic Start: 08-06-2014 End: 02-14-2018 Start: 08-06-2014 End: 02-14-2018 take 1 capsule by inhalation once daily Spiriva HandiHaler 18 MCG Inhalation Capsule 1 Capsule qd for 0 days Quantity: 1 {Capsule} Refills: 5 Ordered: 14-Feb-2018 Richelle Campos RN Start : 06-Aug-2014 End : 14-Feb-2018 Inactive Start: 02-20-2014 End: 03-04-2020 Tiotropium [place] 1 PUFF in haler Discontinued 1 NMA INHALATION DAILY February 20, 2014 12:00am March 04, 2020 9:48am Start: 02-20-2014 End: 03-04-2020 take 1 puff(s) by inhalation once daily Tiotropium [place] Discontinued 1 PUFF INHALATION DAILY February 19, 2014 11:00pm March 04, 2020 8:48am Trelegy Ellipta 200 mcg-62.5 mcg-25 mcg powder for inhalation (3 sources) Start: 10-18-2022 Trelegy Ellipta 200-62.5-25 MCG/INH Inhalation Aerosol Powder Breath Activated (2 sources) Start: 07-28-2022 Trelegy Ellipta 200-62.5-25 MCG/INH Inhalation Aerosol Powder Breath Activated (3 sources) Start: 07-28-2022 End: 08-25-2022 7 actuat umeclidinium 0.0625 mg/actuat / vilanterol 0.025 mg/actuat dry powder inhaler (20 sources) Anticholinergic, beta2-Adrenergic Agonist Start: 02-13-2016 End: 02-13-2016 Start: 02-13-2016 End: 02-13-2016 Start: 02-13-2016 End: 02-13-2016 ANORO ELLIPTA, 62.5-25MCG/IN H (Inhalation Aerosol Powder Breath Activated) 1 (one) Aero Pow Br Act qd for 0 days Quantity: 1 {Inhaler} Refills: 0 Ordered: 13-Feb-2016 Kaylyn BULLARD Isabelle Evans DO Start : 13-Feb-2016 End : 13-Feb-2016 Discontinued Comments: trial Comment on above: trial Problems Active Problems Problem Classification Problem Date Documented Date Episodic/Chronic Administrative/social admission (20 sources) Counseling procedure with explicit context; Translations: [Patient encounter status] 05-17-2018 Episodic Calculus of urinary tract (19 sources) Kidney stone 05-17-2018 Episodic Cancer of prostate (20 sources) Carcinoma in situ of prostate; 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] Resolved: 0 05-17-2018 Chronic Comment on above: sees dr Vega/ Dr Becki lindsey Cancer of prostate (20 sources) Personal history of malignant neoplasm of prostate; Translations: [HX, PERSONAL, MALIGNANCY, PROSTATE] 05-17-2018 Episodic Comment on above: dr Kumar- he follow s psa Cardiac dysrhythmias (1 source) Atrial fibrillation; Translations: [Unspecified atrial fibrillation] 03-13-2024 Chronic Chronic obstructive pulmonary disease and bronchiectasis (20 sources) Chronic obstructive lung disease; Translations: [Moderate chronic obstructive pulmonary disease] Resolved: 2 05-17-2018 Chronic Comment on above: alpha 1-antitrypsin screen Chronic obstructive pulmonary disease and bronchiectasis (20 sources) Chronic obstructive pulmonary disease and bronchiectasis Complications of surgical procedures or medical care (20 sources) Drug therapy finding; Translations: [Medication side effect] 08-11-2020 Episodic Coronary atherosclerosis and other heart disease (20 sources) Coronary arteriosclerosis; Translations: [Coronary artery disease, non-occlusive] 05-17-2018 Chronic Comment on above: chronic stable-marry nue present regimen Dr Burgos-- at [facility] 06/16/2012 PCI of os tial LAD with MELINDA and cutting balloon arthrectomy to mid LAD. [facility]. Dr. Burgos. Coronary atherosclerosis and other heart disease (8 sources) Stented coronary artery; Translations: [Presence of coronary angioplasty implant and graft] Onset: 2 03-10-2021 Episodic Comment on above: 06/16/2012 PCI of os tial LAD with MELINDA and cutting balloon arthrectomy to mid LAD. [facility]. Dr. Burgos. Diabetes mellitus with complications (20 sources) Type II diabetes mellitus uncontrolled; Translations: [Diabetes mellitus without mention of complication, type II or unspecified type, uncontrolled] Resolved: 2 05-17-2018 Chronic Comment on above: pt wants to tightend up diet befoe med s-- ck in 3mo Diabetes mellitus with complications (20 sources) Diabetes mellitus with complications Diabetes mellitus without complication (20 sources) Type 2 diabetes mellitus; Translations: [Type 2 diabetes mellitus without complication] 05-17-2018 Chronic Comment on above: pt wants to tightend up diet befoe med s-- ck in 3mo Diabetes mellitus without complication (20 sources) Diabetes mellitus without complication Disorders of lipid metabolism (20 sources) Hyperlipidemia, unspecified; Translations: [Hyperlipidemia] 05-17-2018 Chronic Diverticulosis and diverticulitis (20 sources) Diverticulosis of large intestine without perforation or abscess without bleeding; Translations: [Diverticular disease of colon] 05-17-2018 Chronic Heart valve disorders (8 sources) Mitral valve regurgitation; Translations: [Nonrheumatic mitral (valve) insufficiency] 03-10-2021 Chronic Comment on above: Mild by echo in 2018 . Immunizations and screening for infectious disease (20 sources) Need for prophylactic vaccination and inoculation against influenza; Translations: [Needs influenza immunization] 07-25-2018 Episodic Neoplasms of unspecified nature or uncertain behavior (20 sources) Neoplasm of uncertain behavior of skin; Translations: [Neoplasm of uncertain behavior of skin] Resolved: 5 05-17-2018 Episodic Comment on above: left side chest wall - roughly 1/4 inch Occlusion or stenosis of precerebral arteries (20 sources) Occlusion and stenosis of bilateral carotid arteries; Translations: [Bilateral stenosis of carotid arteries] Onset: 5 05-17-2018 Chronic Comment on above: plavix and baby asa Other circulatory disease (20 sources) H/O: TIA; Translations: [History of transient ischemic attack] 05-17-2018 Episodic Other circulatory disease (20 sources) Elevated blood-pressure reading without diagnosis of hypertension; Translations: [Elevated blood-pressure reading without diagnosis of hypertension] Resolved: 0 07-01-2015 Episodic Other hereditary and degenerative nervous system conditions (3 sources) Impaired cognition; Translations: [MCI (mild cognitive impairment)] 07-20-2023 Chronic Other lower respiratory disease (20 sources) Hypoxia; Translations: [Hypoxia] Resolved: 3 01-03-2014 Episodic Comment on above: now that taking inha lers as suppossed to Other lower respiratory disease (20 sources) Cough; Translations: [Cough] Resolved: 5 10-10-2014 Episodic Comment on above: quit smoking Other lower respiratory disease (20 sources) Shortness of breath; Translations: [Dyspnea] Episodic Other lower respiratory disease (20 sources) Dyspnea; Translations: [Shortness of breath] 05-17-2018 Episodic Other non-epithelial cancer of skin (20 sources) Basal cell carcinoma of skin; Translations: [Basal cell carcinoma of other site] Resolved: 2 08-19-2015 Episodic Other non-traumatic joint disorders (20 sources) Joint pain; Translations: [Arthralgia] 05-17-2018 Episodic Other nutritional; endocrine; and metabolic disorders (20 sources) Cholesterol level - finding; Translations: [Low HDL (under 40)] 05-17-2018 Chronic Comment on above: increase exercise wi th approval from cardiac-- will enter rehab soon Other nutritional; endocrine; and metabolic disorders (20 sources) Body mass index 25-29 - overweight; Translations: [Body mass index 26.0-26.9, adult] 05-17-2018 Chronic Other nutritional; endocrine; and metabolic disorders (20 sources) Body mass index 25-29 - overweight; Translations: [BMI 25.0-25.9,adult] 08-11-2020 Episodic Other nutritional; endocrine; and metabolic disorders (20 sources) Overweight in adulthood with body mass index of 25 or more but less than 30; Translations: [BMI 25.0-25.9,adult] Resolved: 2 06-07-2022 Episodic Other upper respiratory infections (20 sources) Acute sinusitis; Translations: [Sinusitis, acute] 05-17-2018 Episodic Otitis media and related conditions (20 sources) Dysfunction of eustachian tube; Translations: [Eustachian tube dysfunction] Resolved: 9 07-01-2015 Episodic Comment on above: reassurrance given Peripheral and visceral atherosclerosis (20 sources) Arteriosclerotic vascular disease; Translations: [Atherosclerosis] Resolved: 3 05-17-2018 Chronic Pneumonia (19 sources) Pneumonia Residual codes; unclassified (20 sources) Needs influenza immunization; Translations: [Need for prophylactic vaccination and inoculation against influenza (Renamed from Need for immunization against influenza)] 07-25-2018 Episodic Residual codes; unclassified (13 sources) Cigar smoker; Translations: [Cigar smoker] 08-08-2019 Episodic Residual codes; unclassified (20 sources) Memory impairment; Translations: [Memory change] 01-21-2022 Episodic Substance-related disorders (20 sources) Smoker; Translations: [Cigar smoker] 05-17-2018 Chronic Comment on above: smoker 1ppd x 70 yea rs- discussed cessation and take 1 -2 cigs away a week- - and side effects of buproprion discussed including abnromal behaviours and watch bp quit zyban -- going to quit again - plan to go back on zyban after Syncope (20 sources) Syncope; Translations: [Syncope] Resolved: 9 03-15-2013 Episodic Transient cerebral ischemia (20 sources) Transient cerebral ischemia; Translations: [Cerebral ischemia] Resolved: 5 12-23-2016 Chronic Unclassified (20 sources) Dream anxiety disorder; 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] Resolved: 3 05-17-2018 Chronic Unclassified (20 sources) Electrocardiogram abnormal; Translations: [Abnormal EKG] 05-17-2018 Episodic Unclassified (20 sources) Tobacco use; Translations: [Needs influenza immunization] 05-17-2018 Episodic Unclassified (20 sources) Lesion-Unknown behavior (238.2) Unclassified (20 sources) Diverticulosis (562.10) Unclassified (20 sources) Unclassified (20 sources) Atherosclerosis Unclassified (20 sources) Coronary artery disease, non-occlusive Unclassified (19 sources) Verruca Unclassified (19 sources) Basal Cell Carcinoma, Site Unspecified (173.9) Unclassified (20 sources) Low HDL (272.5) Unclassified (20 sources) SCREENING FOR CANCER OF THE PROSTATE (V76.44) Unclassified (20 sources) HX, PERSONAL, MALIGNANCY, PROSTATE (V10.46) Unclassified (20 sources) CA IN SITU, PROSTATE (233.4) Unclassified (20 sources) Body mass index 26.0-26.9, adult Unclassified (20 sources) Elevated Blood Pressure without diagnosis of Hypertension (796.2) Unclassified (19 sources) Abnormal EKG(794.31) Unclassified (19 sources) Eustachian tube dysfunction (381.81) Unclassified (20 sources) BMI 27.0-27.9,adult Unclassified (10 sources) BMI 26.0-26.9,adult Unclassified (14 sources) Carotid stenosis, bilateral Unclassified (8 sources) Encounter for tobacco use cessation counseling Viral infection (20 sources) Verruca vulgaris; Translations: [Verruca] 05-17-2018 Episodic Past or Other Problems Problem Classification Problem Date Documented Date Episodic/Chronic Asthma (1 source) Exacerbation of asthma; Translations: [Acute exacerbation of COPD with asthma] Resolved: 07-07-2012 08-15-2015 Chronic Coronary atherosclerosis and other heart disease (20 sources) Coronary atherosclerosis and other heart disease Diverticulosis and diverticulitis (15 sources) Diverticulosis of large intestine; Translations: [Diverticulosis of colon] 07-25-2018 External Injury - Adverse effects of medical drugs (3 sources) Medication side effects present; Translations: [Medication side effect] 05-17-2018 Hemorrhoids (20 sources) Hemorrhoids; Translations: [Hemorrhoids] Resolved: 10-17-2009 07-08-2015 Episodic Comment on above: Internal, colonoscop y per Dr. Onofre 2003 Occlusion or stenosis of precerebral arteries (16 sources) Bilateral carotid artery stenosis; Translations: [Carotid stenosis, bilateral] 07-25-2018 Comment on above: plavix and baby asa Other and ill-defined cerebrovascular disease (8 sources) Cerebral ischemia; Translations: [Transient ischemic attack] Resolved: 07-08-2015 12-23-2016 Chronic Residual codes; unclassified (2 sources) Vaccination required; Translations: [Need for vaccination against Streptococcus pneumoniae] 12-23-2016 Episodic Residual codes; unclassified (15 sources) Requires vaccination; Translations: [Need for vaccination against Streptococcus pneumoniae] 12-23-2016 Screening and history of mental health and substance abuse codes (1 source) Personal history of nicotine dependence; Translations: [Personal history of nicotine dependence] Onset: 08-14-2024 Episodic Unclassified (19 sources) ALKALINE PHOSPHATASE 05-17-2018 Unclassified (20 sources) Annual Medicare Physical (V70.0) Unclassified (20 sources) Unspecified Diagnosis 05-17-2018 Unclassified (20 sources) Screening status; Translations: [Screening for prostate cancer] 05-17-2018 Comment on above: with age dont need t o do and h/o XRT - still follows with urology with age no colonosc opy-- pt refused cologard adn stool cards with age dont need t o do and h/o XRT - still follows with urology-- follow it Siders ck him annually Unclassified (19 sources) SINUSITIS, ACUTE NOS (461.9) Unclassified (20 sources) Encounter for screening for malignant neoplasm of colon (Renamed from Special screening for malignant neoplasms, colon) Unclassified (20 sources) Tobacco abuse counseling Unclassified (19 sources) Nightmare Unclassified (20 sources) Medication side effect; Translations: [Medication side effects present] 07-25-2018 Unclassified (20 sources) Patient encounter status; Translations: [Annual Medicare Physical] 05-17-2018 Unclassified (19 sources) CAFFEINE, NOS Resolved: 10-17-2009 03-15-2013 Unclassified (20 sources) Annual Medicare Phyiscal WITHOUT abnormal findings (Renamed from Encounter for general adult medical examination without abnormal findings) Unclassified (20 sources) Screening for prostate cancer Unclassified (15 sources) Drug therapy finding; Translations: [Medication side effect] 07-25-2018 Unclassified (13 sources) Cigar smoker Results Test Name Value Interpretation Reference Range Facility Urgent Care Visit Reporton 0 05-29-2025 Urgent Care Visit Report [facility] [address], [address] [place], [place] [id number] OFFICE VISIT Date of Service: 05/29/25 MR#: [id number] Acct: [id number] Name: SKYLER SANTOS Rep #: [id number] : 1935 Provider: EDILIA Bell Age/Sex: 89/M Location: [email or web address] Status: Signed Intake Vital Signs 01/10/25 10:20 05/29/25 13:14 Height 5 ft 5 in Weight: 159 lb BMI 26.4 BP 143/87 H 148/82 H Blood Pressure Location Lt brachial Lt brachial Position Sitting Sitting Respiration 18 15 Pulse 71 66 Pulse Source Monitor NIBP Temp 98.6 F Temp Source Oral Pulse Oximetry (%) 98 96 Oxygen Delivery Method room air Intake Visit Reasons: SORE AREA AROUND ANUS Chief Complaint: possible hemorrhoid Business Loan Processor Required: No Is patient in pain?: No Allergies No Known Allergies Allergy (Verified 05/29/25 12:53) Have you fallen in the past year?: Yes Nurse's Note: back and forth between diarrhea and constipation. more constipation last 6-8 weeks, pt has been using fingers to assist but now has developed what sounds like a hemorrhoid--intermittentl y painful and grows in size. pt denies otc meds or fiber stating was unsure what to use. mild abd pain intermittently. hx prostate cancer with radiation and diverticulitis. PFS Medical History (Updated 05/29/25 @ 13:22 by Pawel Bell NP-C) Hemorrhoids without complication Non-rheumatic mitral regurgitation Atherosclerotic heart disease of [place] coronary artery without angina pectoris Presence of stent in coronary artery ( 06/16/12) History of kidney stones COPD (chronic obstructive pulmonary disease) Diverticulosis Type 2 diabetes mellitus without complication History of prostate cancer Carotid stenosis Mitral regurgitation HLD (hyperlipidemia) Coronary artery disease involving [place] coronary artery Surgical History Presence of coronary angioplasty implant and graft ( 06/16/12) H/O coronary angioplasty Family History Mother Diabetes Brother Diabetes Myocardial infarction Father , Before age 55 Myocardial infarction CAD (coronary artery disease) Social History Smoking Status: Current every day smoker tobacco type: cigars per week: 7 alcohol intake: never substance use type: does not use caffeine: Yes HPI HPI Chief Complaint: possible hemorrhoid Details: SKYLER SANTOS, is a 89 M who presents to the office today for HPI: Patient presents today for concerns of possible hemorrhoids. He notes that he has a chronic issue with his stools ranging from very loose to being constipated. He notes that he often needs to manually manipulate his rectum in order for stools to pass. Over the last day or 2 he has noticed some enlarged areas around his anus but otherwise denies any abdominal pain or blood in his stool. Denies any current pain. ROS: As noted in HPI Physical Exam: VITALS: Reviewed. GEN: Healthy appearing, well-developed, NAD. PSYCH: AOx3. Normal memory, mood, and affect. LUNGS: Normal respiratory effort. Abdomen: Soft nontender Rectal: 2 nondilated hemorrhoids noted SKIN: Warm, well perfused. No skin rashes or abnormal lesions noted. MSK: Normal gait. NEURO: Ambulating with no limitations. Normal muscle strength and tone. No focal deficits. Coding Level of Care Code Off vis,new,level 2 Diagnoses Hemorrhoids without complication K64.9 Assessment and Plan Assessment and Plan (1) Hemorrhoids without complication: Status: Acute Plan: On physical exam I did observe to hemorrhoids which were not inflamed or enlarged. Abdomen was soft nontender. Discussed with patient the importance of increasing the level of fiber in his diet through cereals such as all bran buds or [id number] fiber supplements. Apparently patient does enjoy eating pastries on a regular basis and I discussed with him decreasing that type of food in favor of more high-fiber foods. I did recommend follow-up with PCP in the next 2-4 weeks for continued evaluation and monitoring. Clinical Quality Measures Falls Risk Screening/Assistive Devices Have you fallen in the past year?: Yes 05/29/25 1323 Date Pawel Walkerigner Signature: Date (if applicable) CC: Normal [facility] Cardiology Visit Reporton Cardiology Visit Report [facility] [address] [place], [place] [address] OFFICE VISIT Date of Service: 01/10/25 MR#: [id number] Acct: [id number] Name: SKYLER SANTOS Rep #: [id number] : 1935 Provider: Dr. Heather baeza MD Age/Sex: 89/M Location: [facility] Status: Signed HPI HPI History of Present Illness Details: 03/05/19: 89-year-old male with past medical history of coronary artery disease status post anterior ST elevation [place] in May 2012 treated with drug-eluting stent ostial LAD and Cutting Balloon atherectomy to mid LAD with residual stenoses that are being treated medically coming to see me for follow-up.??? He is doing very well from a cardiac standpoint.??? He denies any cardiac symptoms at this time. 03/04/2020: Patient is doing well from a cardiac standpoint.??? He denies any cardiac complaints at this time. 03/10/21: Patient is doing well from a cardiac standpoint.??? No cardiac complaints at this time. 03/23/2022: Patient is doing well. Denies any cardiac complaints. 03/22/2023: Patient is doing well. Denies any chest pain or shortness of breath. He still works in the garden. When he looks up or when he bends down and gets up quickly he has some dizziness. 03/13/2024: Patient is doing well. He denies any symptoms. He was found to be in an irregular rhythm by his automatic equipment technician. He is getting a CPAP for sleep apnea. His primary care physician has ordered a Holter and 2D echo. EKG done today reveals A-fib with controlled ventricular response. 09/11/2024: Patient is doing well. No cardiac complaints. Continues to stay physically active. Echo in February of this year revealed preserved EF. 01/10/2025: Patient is doing well. Denies any cardiac complaints. When he bends down or looks up quickly he does get some dizziness. It appears that this is a chronic issue. He had this about 2 years back as well. Intake Vital Signs 09/11/24 11:33 01/10/25 10:20 Height 5 ft 5 in 5 ft 5 in Weight: 158 lb 159 lb BMI 26.2 26.4 BP 116/68 143/87 H Blood Pressure Location Lt brachial Lt brachial Position Sitting Sitting Respiration 18 18 Pulse 75 71 Pulse Source Monitor Monitor Pulse Oximetry (%) 97 98 Intake Visit Reasons: 6 M FU Business Loan Processor Required: No Is patient in pain?: No Allergies No Known Allergies Allergy (Verified 01/10/25 11:53) Medications ???Medication ???Instructions ???Recorded ???Confirmed ???Type aspirin 81 mg tablet,delayed 81 mg PO DAILY@0800 02/20/1401/10 History release nitroglycerin 0.4 mg sublingual 0.4 mg sublingual Q5-15M PRN chest 03/10/21 01/10/25 Rx tablet (Nitrostat) pain #25 tabs atorvastatin 80 mg tablet 80 mg PO QHS #90 tabs 10/15/21 Rx lisinopril 2.5 mg tablet 2.5 mg PO DAILY #90 tabs 10/15/21 01/10/25 Rx metoprolol tartrate 25 mg tablet 12.5 mg (1/2 x 25 mg) PO BID #30 0 02/05/22 01/10/25 Rx tabs ascorbic acid (vitamin C) 500 mg 500 mg PO DAILY 03/23/22 01/10/25 History tablet apixaban 2.5 mg tablet (Eliquis) 2.5 mg PO BID #60 tabs 03/13/24 Rx Have you fallen in the past year?: No PFSH Medical History Atherosclerotic heart disease of [place] coronary artery without angina pectoris Carotid stenosis COPD (chronic obstructive pulmonary disease) Coronary artery disease involving [place] coronary artery Diverticulosis History of kidney stones History of prostate cancer HLD (hyperlipidemia) Mitral regurgitation Non-rheumatic mitral regurgitation Presence of stent in coronary artery ( 06/16/12) Type 2 diabetes mellitus without complication Surgical History H/O coronary angioplasty Presence of coronary angioplasty implant and graft ( 06/16/12) Family History Mother Diabetes Brother Diabetes Myocardial infarction Father , Before age 55 Myocardial infarction CAD (coronary artery disease) Social History Smoking Status: Current every day smoker tobacco type: cigars per week: 7 alcohol intake: never substance use type: does not use caffeine: Yes ROS Const Const: Positive for fatigue; Negative for weakness, headache(s) or frequent falls Eyes Eyes: Negative for blurry vision ENT ENT: Positive for dizziness and balance problems (Occasionally when he standing up); Negative for headache(s) or Nosebleed/epistaxis Cardio Chest Pain: No Palpitations: No Edema: None Muscle aches with walking: None Resp Respiratory: Negative for SOB with activity, SOB at rest or SOB orthopnea SOB lying down GI GI: Negative nausea, vomiting, heartburn, bright, red blood in stools or black,tarry stools : Negat (more content not included)... Normal [facility] Carotid Duplex Ultrasoundon 11-09-2024 Carotid Duplex Ultrasound [facility] [address] [place] [address] Carotid Duplex Ultrasound 11/09/24 1505 MR#: [id number] Acct: [id number] Name: SKYLER SANTOS Rep #: [id number] : 1935 89 From: Bronson Mcgowan MD Attending Dr: Dr. Isabelle Patiño, Status: R EG CLI Ordering Dr: Isabelle Patiño DO Date: 11/09/24 Location: [facility] Sex: M C Admitted: Reason For Study Reason For Study: Carotid stenosis Rt. Velocities/BP Lt. Velocities/BP Prox CCA 69.2/14.5 cm/sec. Prox CCA 83.9/15.7 cm/sec. Mid CCA 73/15.4 cm/sec. Mid CCA 89.4/21.2 cm/sec. Dist CCA 67.4/15.4 cm/sec. Dist CCA 76.2/17.9 cm/sec. Prox ICA 49.4/11.6 cm/sec. Prox ICA 29.4/6.6 cm/sec. Mid ICA 54.1/17.3 cm/sec. Mid ICA 56.4/18 cm/sec. Dist ICA 62.6/22 cm/sec. Dist ICA 52.2/15.2 cm/sec. Rt. ICA/CCA = 0.86. Lt. ICA/CCA = 0.63. Prox ECA 68.3/9.7 cm/sec. Prox ECA 89.4/13.5 cm/sec. Rt. Vert. 35.8/10.2 cm/sec. Lt. Vert. 31.5/6.6 cm/sec. Right Extracranial There is homogeneous, smooth atherosclerotic plaque noted in the right common carotid artery. There is heterogeneous, irregular atherosclerotic plaque noted in the right internal carotid artery. There is heterogeneous, irregular atherosclerotic plaque noted in the right external carotid artery. Antegrade flow is noted in the right vertebral artery. Left Extracranial There is heterogeneous, irregular atherosclerotic plaque noted in the left common carotid artery. There is heterogeneous, irregular atherosclerotic plaque noted in the left internal carotid artery. The left internal carotid artery is very tortuous. There is heterogeneous, irregular atherosclerotic plaque noted in the left external carotid artery. Antegrade flow is noted in the left vertebral artery. Procedure Carotid Duplex 74131. This is a Carotid Duplex examination using B-mode, color flow and specral Doppler. Exam performed in department. VL/Carotid Duplex Ultrasound Interpretation Summary Mild (<50%) stenosis right extracranial internal carotid. Mild (<50%) stenosis left extracranial internal carotid. Patent and antegrade vertebrals bilaterally. ___ Ordering Physician: Isabelle Patiño Referring Physician: Isabelle Patiño Performed By: Earnestine Carbone Mio 11/12/24 1054 Date Bronson Mcgowan MD CC: Dr. Isabelle Patiño DO Date Dictated: 11/09/24 1505 Date Transcribed: 11/12/24 105 Hydrochloric Area Supervisor: Signed Normal [facility] Cardiology Visit Reporton Cardiology Visit Report [facility] [address] [place] [address] OFFICE VISIT Date of Service: 09/11/24 MR#: [id number] Acct: [id number] Name: SKYLER SANTOS Rep #: [id number] : 1935 Provider: Dr. Heather baeza MD Age/Sex: 89/M Location: [facility] Status: Signed HPI HPI History of Present Illness Details: 03/05/19: 89-year-old male with past medical history of coronary artery disease status post anterior ST elevation [place] in May 2012 treated with drug-eluting stent ostial LAD and Cutting Balloon atherectomy to mid LAD with residual stenoses that are being treated medically coming to see me for follow-up.??? He is doing very well from a cardiac standpoint.??? He denies any cardiac symptoms at this time. 03/04/2020: Patient is doing well from a cardiac standpoint.??? He denies any cardiac complaints at this time. 03/10/21: Patient is doing well from a cardiac standpoint.??? No cardiac complaints at this time. 03/23/2022: Patient is doing well. Denies any cardiac complaints. 03/22/2023: Patient is doing well. Denies any chest pain or shortness of breath. He still works in the garden. When he looks up or when he bends down and gets up quickly he has some dizziness. 03/13/2024: Patient is doing well. He denies any symptoms. He was found to be in an irregular rhythm by his automatic equipment technician. He is getting a CPAP for sleep apnea. His primary care physician has ordered a Holter and 2D echo. EKG done today reveals A-fib with controlled ventricular response. 09/11/2024: Patient is doing well. No cardiac complaints. Continues to stay physically active. Echo in February of this year revealed preserved EF. Intake Vital Signs 03/13/24 08:45 09/11/24 11:33 09/11/24 11:39 Height 5 ft 5 in 5 ft 5 in 5 ft 5 in Weight: 151 lb 158 lb BMI 25.1 26.2 BP 122/65 H 116/68 Blood Pressure Location Lt brachial Lt brachial Position Sitting Sitting Respiration 18 18 Pulse 82 75 Pulse Source Monitor Monitor Pulse Oximetry (%) 97 97 Intake Visit Reasons: 6 M FU Business Loan Processor Required: No Is patient in pain?: No Allergies No Known Allergies Allergy (Verified 09/11/24 11:35) Medications ???Medication ???Instructions ???Recorded ???Confirmed ???Type aspirin 81 mg tablet,delayed 81 mg PO DAILY@0800 02/20/14 09/11/24 History release nitroglycerin 0.4 mg sublingual 0.4 mg sublingual Q5-15M PRN chest 03/10/21 09/11/24 Rx tablet (Nitrostat) pain #25 tabs atorvastatin 80 mg tablet 80 mg PO QHS #90 tabs 10/15/21 09/11/24 Rx lisinopril 2.5 mg tablet 2.5 mg PO DAILY #90 tabs 10/15/21 09/11/24 Rx metoprolol tartrate 25 mg tablet 12.5 mg (1/2 x 25 mg) PO BID #30 02/05/22 09/11/24 Rx tabs ascorbic acid (vitamin C) 500 mg 500 mg PO DAILY 03/23/22 09/11/24 History tablet apixaban 2.5 mg tablet (Eliquis) 2.5 mg PO BID #60 tabs 03/13/24 09/11/24 Rx Have you fallen in the past year?: No PFSH Medical History Atherosclerotic heart disease of [place] coronary artery without angina pectoris Carotid stenosis COPD (chronic obstructive pulmonary disease) Coronary artery disease involving [place] coronary artery Diverticulosis History of kidney stones History of prostate cancer HLD (hyperlipidemia) Mitral regurgitation Non-rheumatic mitral regurgitation Presence of stent in coronary artery ( 06/16/12) Type 2 diabetes mellitus without complication Surgical History H/O coronary angioplasty Presence of coronary angioplasty implant and graft ( 06/16/12) Family History Mother Diabetes Brother Diabetes Myocardial infarction Father , Before age 55 Myocardial infarction CAD (coronary artery disease) Social History Smoking Status: Current every day smoker tobacco type: cigars per week: 7 alcohol intake: never substance use type: does not use caffeine: Yes ROS Const Const: Negative for fatigue, weakness, headache(s), frequent falls, difficulty sleeping or excessive sweating Eyes Eyes: Negative for loss of peripheral vision, transient loss of vision, blurry vision, double vision or tunnel vision ENT ENT: Positive for dizziness and balance problems (Occasionally when he standing up); Negative for headache(s) or Nosebleed/epistaxis Cardio Chest Pain: No Palpitations: No Edema: None Muscle aches with walking: None Resp Respiratory: Negative for SOB with activity, SOB at rest, SOB orthopnea SOB lying down, Cough or paroxysmal nocturnal dyspnea GI GI: Negative nausea, vomiting, heartburn or black,tarry stools : Negative for hematuria Musc Musc: Positive for joint pain and balance problems (Occasion (more content not included)... Normal [facility] Low Dose CT Lung Screeningon 07-26-[address] Lung Screening [facility] Imaging Services [address] [place] [id number] Lung Screening MR#: [id number] Acct: [id number] Name: SKYLER SANTOS Rep #: [id number] : 1935 89 From: Antony vázquez MD PCP: Dr. Isabelle Patiño, Status: REG CLI Study: Low Dose CT Lung Screening Date of Exam: 07/26 Exam# [id number] Ordering Dr: Isabelle Patiño DO [id number] STUDY: LOW DOSE CT LUNG CANCER SCREENING REASON FOR EXAM: Male, 89 years old. LDCT FOR LUNG CA SCREEN (Medicare) -- smoker. History of 77 year ex-smoker. RADIATION DOSAGE (If Supplied By Facility): CTDIvol = ( 3.02 ) mGy, DLP = ( 94.78 ) mGycm TECHNIQUE: No contrast was administered. Low dose technique was utilized (average mAS-38 and kVp 120). 1.25 mm axial source images with a slice interval of 1.25-mm were reconstructed in lung windows. 2.5 mm axial source images with a slice interval of 2.5-mm were reconstructed in lung windows. 5.0 mm axial source images with a slice interval of 5.0-mm were reconstructed in soft tissue windows. COMPARISON: Comparison is made with prior study dated December 09, 2022. NODULES: Stable faintly calcified 3 mm nodule in the anterior aspect of the right middle lobe as seen on axial image #120. Emphysema: No significant emphysematous changes are seen. Endobronchial lesion: None Aorta: Atherosclerotic plaque formation of the aorta. CORONARY ARTERIES: Coronary artery calcification is seen. Heart: Unremarkable Pulmonary artery: Unremarkable Mediastinal nodes: Calcified subcarinal lymph nodes in the left hilar lymph nodes. Other chest and abdominal findings: CT/Low Dose CT Lung Screening IMPRESSION: Lung-RADS category 2 - Continue annual screening with LDCT in 12 months. IMPORTANT NOTES FOR USE: ACR Lung-RADS Version 1.1 Assessment Categories Release Date: 2018 Category: Coded 0-4 bases on nodule(s) with highest degree of suspicion. Negative screen is defined as categories 1 and 2; a positive screen is defined as categories 3 and 4. Category 3 and 4A nodules that are unchanged on interval CT should be coded as category 2, and individuals returned to screening in 12 months. Category 4X: Category 3 or 4 nodules with additional imaging findings that increase the suspicion of lung cancer, such as spiculation, GGN that doubles in size in 1 year, enlarged lymph notes, etc. Category Modifiers: S (significant finding unrelated to lung cancer) Electronically Signed: Antony Brown MD at 14:49 EDT , CC: Dr. Isabelle Patiño DO Hydrochloric Area Supervisor: [facility] Telephone (FAMPWS) ----- DANIELLESKYLER ([id number]) 1935 M Date Time Provider Department 03/12/24 ZEYAD FERNANDEZ During your visit today, we recorded the following information about you: Zeyad Fernandez DO 03/12/2024 1:56 PM Signed Okay for Skyler to establish care with me if interested. Zeyad Fernandez DO Allergies As of Date: 03/12/2024 (No Known Allergies) Date Reviewed: 07/10/2021 Reviewed by: Anais Mckenzie (Delivery Technician) - Fully Assessed Prescriptions as of 03/23/2024 - aspirin, enteric coated (ASPIRIN, ENTERIC COATED) 81 mg EC tablet Take by mouth. - atorvastatin (LIPITOR) 80 mg tablet Take by mouth. - clopidogrel (PLAVIX) 75 mg tablet - lisinopril 2.5 mg tablet - nitroglycerin sublingual (NITROQUICK) 0.4 mg SL tablet Dissolve under the tongue. Problem List As Of Date: 03/12/2024 (None) Encounter Status:Closed by RENNY HERNANDES on 03/23/24 Normal [facility] Blood Glucose , Office ([phone])Ordered By: Isabelle Patiño on 06-03-2023 Glucose Glucometer (dC) [Moles/Vol] 133 1 Normal [facility]; [facility] Work Phone: CBC W/AUTO DIFF WBC ([id number])O rdered By: Client Advisor on 06-03-2023 Basophils (Bld) [#/Vol] 0.0 10*3/uL Normal 0.0-0.2 [facility]; [facility] Work Phone: Basophils/100 WBC (Bld) 1 % Normal [facility]; [facility] Work Phone: Eosinophils (Bld) [#/Vol] 0.2 10*3/uL Normal 0.0-0.4 [facility]; [facility] Work Phone: Eosinophils/100 WBC (Bld) 2 % Normal [facility]; [facility] Work Phone: Erythrocyte distribution width (RBC) [Ratio] 13.1 % Normal 11.6-15.4 [facility]; [facility] Work Phone: Hematocrit (Bld) [Volume fraction] 37.2 % Abnormal 37.5-51.0 [facility]; [facility] Work Phone: Hemoglobin (Bld) [Mass/Vol] 12.4 g/dL Abnormal 13.0-17.7 [facility]; [facility] Work Phone: Immature granulocytes (Bld) [#/Vol] 0.0 10*3/uL Normal 0.0-0.1 [facility]; [facility] Work Phone: Immature granulocytes/100 WBC (Bld) 0 % Normal [facility]; [facility] Work Phone: Lymphocytes (Bld) [#/Vol] 1.4 10*3/uL Normal 0.7-3.1 [facility]; [facility] Work Phone: Lymphocytes/100 WBC (Bld) 19 % Normal [facility]; [facility] Work Phone: MCH (RBC) [Entitic mass] 30.2 pg Normal 26.6-33.0 [facility]; [facility] Work Phone: MCHC (RBC) [Mass/Vol] 33.3 g/dL Normal 31.5-35.7 [facility]; [facility] Work Phone: MCV (RBC) [Entitic vol] 91 fL Normal 79-97 [facility]; [facility] Work Phone: Monocytes (Bld) [#/Vol] 0.4 10*3/uL Normal 0.1-0.9 [facility]; [facility] Work Phone: Monocytes/100 WBC (Bld) 6 % Normal [facility]; [facility] Work Phone: Neutrophils (Bld) [#/Vol] 5.2 10*3/uL Normal 1.4-7.0 [facility]; [facility] Work Phone: Neutrophils/100 WBC (Bld) 72 % Normal [facility]; [facility] Work Phone: Platelets (Bld) [#/Vol] 204 10*3/uL Normal 150-450 [facility]; [facility] Work Phone: RBC (Bld) [#/Vol] 4.11 10*6/uL Abnormal 4.14-5.80 [facility]; [facility] Work Phone: WBC (Bld) [#/Vol] 7.2 10*3/uL Normal 3.4-10.8 [facility]; [facility] Work Phone: HgA1C , Office ([id number])Ordere d By: Isabelle Patiño on 06-03-2023 HbA1c (Bld) [Mass fraction] 6.5 % Normal 4.6 - 7.1 [facility]; [facility] Work Phone: LIPID PANEL ([id number])Ordered B y: Client Advisor on 06-03-2023 Cholesterol [Mass/Vol] 96 mg/dL Abnormal 100-199 [facility]; [facility] Work Phone: Cholesterol in HDL [Mass/Vol] 34 mg/dL Abnormal [facility]; [facility] Work Phone: Triglyceride [Mass/Vol] 62 mg/dL Normal 0-149 [facility]; [facility] Work Phone: LIPID PANEL ([id number]) 14 mg/dL Normal 5-40 [facility]; [facility] Work Phone: LIPID PANEL ([id number]) 48 mg/dL Normal 0-99 [facility]; [facility] Work Phone: LIPID PANEL ([id number]) 1.4 {ratio} Normal 0.0-3.6 [facility]; [facility] Work Phone: METABOLIC PANEL, COMPREHENSI VE ([id number])Ordered By: Client Advisor on 06-03-2023 Albumin [Mass/Vol] 4.1 g/dL Normal 3.7-4.7 [facility]; [facility] Work Phone: Albumin/Globulin [Mass ratio] 1.8 {ratio} Normal 1.2-2.2 [facility]; [facility] Work Phone: ALP [Catalytic activity/Vol] 138 U/L Abnormal 44-121 [facility]; [facility] Work Phone: ALT [Catalytic activity/Vol] 14 U/L Normal 0-44 [facility]; [facility] Work Phone: AST [Catalytic activity/Vol] 20 U/L Normal 0-40 [facility]; [facility] Work Phone: Bilirubin [Mass/Vol] 1.5 mg/dL Abnormal 0.0-1.2 [facility]; [facility] Work Phone: Calcium [Mass/Vol] 9.3 mg/dL Normal 8.6-10.2 [facility]; [facility] Work Phone: Chloride [Moles/Vol] 107 mmol/L Abnormal 96-106 [facility]; [facility] Work Phone: CO2 [Moles/Vol] 21 mmol/L Normal 20-29 [facility]; [facility] Work Phone: Creatinine [Mass/Vol] 1.02 mg/dL Normal 0.76-1.27 [facility]; [facility] Work Phone: Globulin (S) [Mass/Vol] 2.3 g/dL Normal 1.5-4.5 [facility]; [facility] Work Phone: Glucose [Mass/Vol] 107 mg/dL Abnormal 70-99 [facility]; [facility] Work Phone: Potassium [Moles/Vol] 4.3 mmol/L Normal 3.5-5.2 [facility]; [facility] Work Phone: Protein [Mass/Vol] 6.4 g/dL Normal 6.0-8.5 [facility]; [facility] Work Phone: Sodium [Moles/Vol] 142 mmol/L Normal 134-144 [facility]; [facility] Work Phone: Urea nitrogen [Mass/Vol] 21 mg/dL Normal 8-27 [facility]; [facility] Work Phone: Urea nitrogen/Creatinine [Mass ratio] 21 mg/mg Normal 10-24 [facility]; [facility] Work Phone: METABOLIC PANEL, COMPREHENSIVE ([id number]) 72 mL/min/1.73 Normal [facility]; [facility] Work Phone: MICROALBUMINOrdered By: Syst em Environmental Services Lead on 06-03-2023 Albumin DL <= 20 mg/L (U) [Mass/Vol] 38.6 ug/mL Normal [facility]; [facility] Work Phone: Albumin/Creatinine (U) [Mass ratio] 17 {mg/g_creat} Normal 0-29 [facility]; [facility] Work Phone: Creatinine (U) [Mass/Vol] 220.9 mg/dL Normal [facility]; [facility] Work Phone: PSA (Medicare - 103) ([phone])Ordered By: Client Advisor on 06-03-2023 Prostate specific Ag [Mass/Vol] 0.2 ng/mL Normal 0.0-4.0 [facility]; [facility] Work Phone: TSH ([id number])Ordered By: Arise m Environmental Services Lead on 06-03-2023 TSH Qn 1.310 {uIU/mL} Normal 0.450-4.50 0 [facility]; [facility] Work Phone: URINALYSIS, W/ MICRO ([id number]) Ordered By: Client Advisor on 06-03-2023 Appearance (U) Clear Normal [facility]; [facility] Work Phone: Bilirubin Ql (U) Negative Normal Com[facility]; [facility] Work Phone: Color (U) Yellow Normal [facility]; [facility] Work Phone: Glucose Ql (U) Negative Normal [facility]; [facility] Work Phone: Hemoglobin Ql (U) Negative Normal Compre[facility] ens[facility]; [facility] Work Phone: Ketones Ql (U) Trace Abnormal [facility]; [facility] Work Phone: Leukocyte esterase Test strip Ql (U) Negative Normal [facility]; [facility] Work Phone: Microscopic observation LM Nom (Urine sed) MICRON Normal [facility]; [facility] Work Phone: Microscopic observation LM Nom (Urine sed) See below: Normal [facility]; [facility] Work Phone: Nitrite Ql (U) Negative Normal [facility]; [facility] Work Phone: pH (U) 5.5 [pH] Normal 5.0-7.5 [facility]; [facility] Work Phone: Protein Ql (U) Trace Normal [facility]; [facility] Work Phone: Specific gravity (U) [Rel density] 1.028 1 Normal 1.005-1.03 0 [facility]; [facility] Work Phone: Urobilinogen (U) [Mass/Vol] 1.0 mg/dL Normal 0.2-1.0 [facility]; [facility] Work Phone: Blood Glucose , Office ([phone])on 03-02-2023 Glucose Glucometer (BldC) [Moles/Vol] 165 1 Normal [facility]; [facility] Work Phone: HgA1C , Office ([id number])on HbA1c (Bld) [Mass fraction] 6.3 % Normal 4.6 - 7.1 [facility]; [facility] Work Phone: Blood Glucose , Office ([phone])Ordered By: Jas Mata on 11-29-2022 Glucose Glucometer (BldC) [Moles/Vol] 125 1 Normal [facility]; [facility] Work Phone: HgA1C , Office ([phone])Ordere d By: Beritnsalud Adolfo on 11-29-2022 HbA1c (Bld) [Mass fraction] 6.5 % Normal 4.6 - 7.1 [facility]; [facility] Work Phone: CBC W/AUTO DIFF WBC ([id number])O rdered By: Client Advisor on 07-06-2022 Basophils (Bld) [#/Vol] 0.0 10*3/uL Normal 0.0-0.2 [facility]; [facility] Work Phone: Basophils/100 WBC (Bld) 1 % Normal [facility]; [facility] Work Phone: Eosinophils (Bld) [#/Vol] 0.2 10*3/uL Normal 0.0-0.4 [facility]; [facility] Work Phone: Eosinophils/100 WBC (Bld) 3 % Normal [facility]; [facility] Work Phone: Erythrocyte distribution width (RBC) [Ratio] 13.0 % Normal 11.6-15.4 [facility]; [facility] Work Phone: Hematocrit (Bld) [Volume fraction] 36.8 % Abnormal 37.5-51.0 [facility]; [facility] Work Phone: Hemoglobin (Bld) [Mass/Vol] 12.4 g/dL Abnormal 13.0-17.7 [facility]; [facility] Work Phone: Immature granulocytes (Bld) [#/Vol] 0.0 10*3/uL Normal 0.0-0.1 [facility]; [facility] Work Phone: Immature granulocytes/100 WBC (Bld) 0 % Normal [facility]; [facility] Work Phone: Lymphocytes (Bld) [#/Vol] 1.6 10*3/uL Normal 0.7-3.1 [facility]; [facility] Work Phone: Lymphocytes/100 WBC (Bld) 26 % Normal [facility]; [facility] Work Phone: MCH (RBC) [Entitic mass] 31.1 pg Normal 26.6-33.0 [facility]; [facility] Work Phone: MCHC (RBC) [Mass/Vol] 33.7 g/dL Normal 31.5-35.7 [facility]; [facility] Work Phone: MCV (RBC) [Entitic vol] 92 fL Normal 79-97 [facility]; [facility] Work Phone: Monocytes (Bld) [#/Vol] 0.4 10*3/uL Normal 0.1-0.9 [facility]; [facility] Work Phone: Monocytes/100 WBC (Bld) 7 % Normal [facility]; [facility] Work Phone: Neutrophils (Bld) [#/Vol] 3.8 10*3/uL Normal 1.4-7.0 [facility]; [facility] Work Phone: Neutrophils/100 WBC (Bld) 63 % Normal [facility]; [facility] Work Phone: Platelets (Bld) [#/Vol] 164 10*3/uL Normal 150-450 [facility]; [facility] Work Phone: RBC (Bld) [#/Vol] 3.99 10*6/uL Abnormal 4.14-5.80 [facility] ehensive [facility]; [facility] Work Phone: WBC (Bld) [#/Vol] 6.0 10*3/uL Normal 3.4-10.8 [facility]; [facility] Work Phone: LIPID PANEL ([id number])Ordered B y: Client Advisor on 07-06-2022 Cholesterol [Mass/Vol] 100 mg/dL Normal 100-199 [facility]; [facility] Work Phone: Cholesterol in HDL [Mass/Vol] 40 mg/dL Normal [facility]; [facility] Work Phone: Triglyceride [Mass/Vol] 42 mg/dL Normal 0-149 [facility]; [facility] Work Phone: LIPID PANEL ([id number]) 11 mg/dL Normal 5-40 [facility]; [facility] Work Phone: LIPID PANEL ([id number]) 49 mg/dL Normal 0-99 [facility]; [facility] Work Phone: LIPID PANEL ([id number]) 1.2 {ratio} Normal 0.0-3.6 [facility]; [facility] Work Phone: METABOLIC PANEL, COMPREHENSI VE ([id number])Ordered By: Client Advisor on 07-06-2022 Albumin [Mass/Vol] 4.2 g/dL Normal 3.6-4.6 [facility]; [facility] Work Phone: Albumin/Globulin [Mass ratio] 2.2 {ratio} Normal 1.2-2.2 [facility]; [facility] Work Phone: ALP [Catalytic activity/Vol] 112 U/L Normal 44-121 [facility]; [facility] Work Phone: ALT [Catalytic activity/Vol] 17 U/L Normal 0-44 [facility]; [facility] Work Phone: AST [Catalytic activity/Vol] 21 U/L Normal 0-40 [facility]; [facility] Work Phone: Bilirubin [Mass/Vol] 1.3 mg/dL Abnormal 0.0-1.2 [facility]; [facility] Work Phone: Calcium [Mass/Vol] 9.0 mg/dL Normal 8.6-10.2 [facility]; [facility] Work Phone: Chloride [Moles/Vol] 108 mmol/L Abnormal 96-106 [facility]; [facility] Work Phone: CO2 [Moles/Vol] 25 mmol/L Normal 20-29 [facility]; [facility] Work Phone: Creatinine [Mass/Vol] 0.91 mg/dL Normal 0.76-1.27 Com [facility]; [facility] Work Phone: Globulin (S) [Mass/Vol] 1.9 g/dL Normal 1.5-4.5 [facility]; [facility] Work Phone: Glucose [Mass/Vol] 96 mg/dL Normal 70-99 [facility]; [facility] Work Phone: Potassium [Moles/Vol] 4.5 mmol/L Normal 3.5-5.2 [facility]; [facility] Work Phone: Protein [Mass/Vol] 6.1 g/dL Normal 6.0-8.5 [facility]; [facility] Work Phone: Sodium [Moles/Vol] 144 mmol/L Normal 134-144 [facility]; [facility] Work Phone: Urea nitrogen [Mass/Vol] 15 mg/dL Normal 8-27 [facility]; [facility] Work Phone: Urea nitrogen/Creatinine [Mass ratio] 16 mg/mg Normal 10-24 [facility]; [facility] Work Phone: METABOLIC PANEL, COMPREHENSIVE ([id number]) 83 mL/min/1.73 Normal Com[facility]; [facility] Work Phone: MICROALBUMINOrdered By: Syst em [employer] Services Lead on 07-06-2022 Albumin DL <= 20 mg/L (U) [Mass/Vol] 25.0 ug/mL Normal [facility]; [facility] Work Phone: Albumin/Creatinine (U) [Mass ratio] 18 {mg/g_creat} Normal 0-29 [facility]; [facility] Work Phone: Creatinine (U) [Mass/Vol] 135.7 mg/dL Normal [facility]; [facility] Work Phone: TSH ([id number])Ordered By: Syste m Environmental [employer] Lead on 07-06-2022 TSH Qn 1.980 {uIU/mL} Normal 0.450-4.50 0 [facility]; [facility] Work Phone: URINALYSIS, W/ MICRO ([phone]) Ordered By: Client Advisor on 07-06-2022 Appearance (U) Clear Normal Comprehens [facility]; [facility] Work Phone: Bilirubin Ql (U) Negative Normal Comprehe nsive [facility]; [facility] Work Phone: Color (U) Yellow Normal [facility]; [facility] Work Phone: Glucose Ql (U) Negative Normal Comprehens [facility]; [facility] Work Phone: Hemoglobin Ql (U) Negative Normal Compreh ensive [facility] Medicine; [facility] Work Phone: Ketones Ql (U) Negative Normal Comprehens [facility]; [facility] Work Phone: Leukocyte esterase Test strip Ql (U) Negative Normal [facility]; [facility] Work Phone: Microscopic observation LM Nom (Urine sed) MICRON Normal [facility]; [facility] Work Phone: Microscopic observation LM Nom (Urine sed) See below: Normal [facility]; [facility] Work Phone: Nitrite Ql (U) Negative Normal Comprehens [facility]; [facility] Work Phone: pH (U) 6.0 [pH] Normal 5.0-7.5 [facility]; [facility] Work Phone: Protein Ql (U) Negative Normal Comprehens [facility]; [facility] Work Phone: Specific gravity (U) [Rel density] 1.022 1 Normal 1.005-1.03 0 [facility]; [facility] Work Phone: Urobilinogen (U) [Mass/Vol] 0.2 mg/dL Normal 0.2-1.0 [facility]; [facility] Work Phone: VITAMIN B-12 (CYANOCOBALAMIN ) ([phone])Ordered By: Client Advisor on 07-06-2022 Cobalamin (Vitamin B12) [Mass/Vol] 461 pg/mL Normal 232-1245 [facility]; [facility] Work Phone: Blood Glucose , Office ([phone])Ordered By: Isabelle Patiño on 06-07-2022 Glucose Glucometer (BldC) [Moles/Vol] 107 1 Normal [facility]; [facility] Work Phone: HgA1C , Office ([phone])Ordere d By: Isabelle Patiño on 06-07-2022 HbA1c (Bld) [Mass fraction] 6.1 % Normal 4.6 - 7.1 [facility]; [facility] Work Phone: Blood Glucose , Office ([phone])Ordered By: Candie Ramirez on 01-21-2022 Glucose Glucometer (BldC) [Moles/Vol] 96 1 Normal [facility]; [facility] Work Phone: HgA1C , Office ([phone])Ordere d By: Emily Onofre on 01-21-2022 HbA1c (Bld) [Mass fraction] 6.1 % Normal 4.6 - 7.1 [facility]; [facility] Work Phone: VITAMIN B-12 (CYANOCOBALAMIN ) ([phone])Ordered By: Client Advisor on 01-21-2022 Cobalamin (Vitamin B12) [Mass/Vol] 828 pg/mL Normal 232-1245 [facility]; [facility] Work Phone: CBC, Platelets & Auto Diff ( [phone])Ordered By: Client Advisor on 12-25-2021 Basophils (Bld) [#/Vol] 0.0 10*3/uL Normal 0.0-0.2 [facility]; [facility] Work Phone: Basophils/100 WBC (Bld) 1 % Normal [facility]; [facility] Work Phone: Eosinophils (Bld) [#/Vol] 0.1 10*3/uL Normal 0.0-0.4 [facility]; [facility] Work Phone: Eosinophils/100 WBC (Bld) 2 % Normal [facility]; [facility] Work Phone: Erythrocyte distribution width (RBC) [Ratio] 13.1 % Normal 11.6-15.4 [facility]; [facility] Work Phone: Hematocrit (Bld) [Volume fraction] 38.3 % Normal 37.5-51.0 [facility]; [facility] Work Phone: Hemoglobin (Bld) [Mass/Vol] 12.9 g/dL Abnormal 13.0-17.7 [facility]; [facility] Work Phone: Immature granulocytes (Bld) [#/Vol] 0.0 10*3/uL Normal 0.0-0.1 [facility]; [facility] Work Phone: Immature granulocytes/100 WBC (Bld) 0 % Normal [facility]; [facility] Work Phone: Lymphocytes (Bld) [#/Vol] 1.8 10*3/uL Normal 0.7-3.1 [facility]; [facility] Work Phone: Lymphocytes/100 WBC (Bld) 28 % Normal [facility]; [facility] Work Phone: MCH (RBC) [Entitic mass] 30.3 pg Normal 26.6-33.0 [facility]; [facility] Work Phone: MCHC (RBC) [Mass/Vol] 33.7 g/dL Normal 31.5-35.7 [facility] prehensive Internal Medicine; [facility] Work Phone: MCV (RBC) [Entitic vol] 90 fL Normal 79-97 [facility]; [facility] Work Phone: Monocytes (Bld) [#/Vol] 0.4 10*3/uL Normal 0.1-0.9 [facility]; [facility] Work Phone: Monocytes/100 WBC (Bld) 6 % Normal [facility]; [facility] Work Phone: Neutrophils (Bld) [#/Vol] 4.1 10*3/uL Normal 1.4-7.0 [facility]; [facility] Work Phone: Neutrophils/100 WBC (Bld) 63 % Normal [facility]; [facility] Work Phone: Platelets (Bld) [#/Vol] 182 10*3/uL Normal 150-450 [facility]; [facility] Work Phone: RBC (Bld) [#/Vol] 4.26 10*6/uL Normal 4.14-5.80 [facility]; [facility] Work Phone: WBC (Bld) [#/Vol] 6.5 10*3/uL Normal 3.4-10.8 [facility]; [facility] Work Phone: LIPID PANEL ([phone])Ordered B y: Client Advisor on 12-25-2021 Cholesterol [Mass/Vol] 89 mg/dL Abnormal 100-199 [facility]; [facility] Work Phone: Cholesterol in HDL [Mass/Vol] 30 mg/dL Abnormal [facility]; [facility] Work Phone: Triglyceride [Mass/Vol] 51 mg/dL Normal 0-149 [facility]; [facility] Work Phone: LIPID PANEL ([phone]) 13 mg/dL Normal 5-40 [facility]; [facility] Work Phone: LIPID PANEL ([id number]) 46 mg/dL Normal 0-99 [facility]; [facility] Work Phone: LIPID PANEL (06346) 1.5 {ratio} Normal 0.0-3.6 [facility]; [facility] Work Phone: MICROALBUMINOrdered By: Syst em Environmental Services Lead on 12-25-2021 Albumin DL <= 20 mg/L (U) [Mass/Vol] 34.3 ug/mL Normal [facility]; [facility] Work Phone: Albumin/Creatinine (U) [Mass ratio] 25 {mg/g_creat} Normal 0-29 [facility]; [facility] Work Phone: Creatinine (U) [Mass/Vol] 139.8 mg/dL Normal [facility]; [facility] Work Phone: Metabolic Panel, Comprehensi ve ([id number])Ordered By: Client Advisor on 12-25-2021 Albumin [Mass/Vol] 4.0 g/dL Normal 3.6-4.6 [facility]; [facility] Work Phone: Albumin/Globulin [Mass ratio] 1.9 {ratio} Normal 1.2-2.2 [facility]; [facility] Work Phone: ALP [Catalytic activity/Vol] 122 U/L Abnormal 44-121 [facility]; [facility] Work Phone: ALT [Catalytic activity/Vol] 12 U/L Normal 0-44 [facility]; [facility] Work Phone: AST [Catalytic activity/Vol] 18 U/L Normal 0-40 [facility]; [facility] Work Phone: Bilirubin [Mass/Vol] 1.0 mg/dL Normal 0.0-1.2 [facility] rehensive Internal Medicine; [facility] Work Phone: Calcium [Mass/Vol] 8.9 mg/dL Normal 8.6-10.2 [facility]; [facility] Work Phone: Chloride [Moles/Vol] 105 mmol/L Normal 96-[address] [facility]; [facility] Work Phone: CO2 [Moles/Vol] 23 mmol/L Normal 20-29 [facility]; [facility] Work Phone: Creatinine [Mass/Vol] 0.95 mg/dL Normal 0.76-1.27 [facility] prehensive Internal Medicine; [facility] Work Phone: Globulin (S) [Mass/Vol] 2.1 g/dL Normal 1.5-4.5 [facility]; [facility] Work Phone: Glucose [Mass/Vol] 121 mg/dL Abnormal 65-99 [facility] Internal [facility]; [facility] Work Phone: Potassium [Moles/Vol] 4.7 mmol/L Normal 3.5-5.2 [facility] prehensive Internal Medicine; [facility] Work Phone: Protein [Mass/Vol] 6.1 g/dL Normal 6.0-8.5 [facility]; [facility] Work Phone: Sodium [Moles/Vol] 141 mmol/L Normal 134-144 [facility]; [facility] Work Phone: Urea nitrogen [Mass/Vol] 15 mg/dL Normal 8-27 [facility]; [facility] Work Phone: Urea nitrogen/Creatinine [Mass ratio] 16 mg/mg Normal 10-24 [facility]; [facility] Work Phone: Metabolic Panel, [facility] ([id number]) 79 mL/min/1.73 Normal Comprehens [facility]; [facility] Work Phone: TSH (THYROID STIMULATING HOR FAWN) (04074)Ordered By: Client Advisor on 12-25-2021 TSH Qn 1.950 {uIU/mL} Normal 0.450-4.50 0 [facility]; [facility] Work Phone: CBC & PLATELETS (AUTO) ([phone])Ordered By: Client Advisor on 08-08-2020 Erythrocyte distribution width (RBC) [Ratio] 13.0 % Normal 11.6-15.4 [facility] Internal [facility] Work Phone: Comment on above: Test(s) 887915-XXF-T ; 229951-AJT-U; 909850-Ytsqomgweqhnq; 614616-Fdilcvnkglm, Total; 851572-RJM-T (Total); 840087-Khcvf LDL-P; 688830-NHA Size; 803845-CA-KN Scorewas developed and its performance characteristics determinedby EVRGR. It has not been cleared or approved by the Foodand Drug Administration.PATIENT WAS FASTINGPERFORMED BY: BN LabCoPeter Ville 232057 [facility] [id number] BY: CB LabCoAstra Health CenterRlwyxi0751 [facility] [id number] Hematocrit (Bld) [Volume fraction] 44.4 % Normal 37.5-51.0 [facility] Work Phone: Comment on above: Test(s) 731657-DFQ-G ; 146197-EUS-A; 735406-Hkgiluwlpbvwz; 654951-Oxedzqnsbgo, Total; 211333-QJU-V (Total); 567026-Rvxiy LDL-P; 115639-FFA Size; 364688-QR-RP Scorewas developed and its performance characteristics determinedby EVRGR. It has not been cleared or approved by the Foodand Drug Administration.PATIENT WAS FASTINGPERFORMED BY: [email or web address] [address] [id number] BY: [employer]70 [facility] [id number] Hemoglobin (Bld) [Mass/Vol] 15.0 g/dL Normal 13.0-17.7 [facility] Work Phone: Comment on above: Test(s) 078704-NWC-F ; 987683-ADH-C; 348723-Fqqfqylipgqnk; 952237-Wflpxhzvcql, Total; 660383-BYN-K (Total); 493298-Hwjyw LDL-P; 373261-NQT Size; 784814-BF-SW Scorewas developed and its performance characteristics determinedby EVRGR. It has not been cleared or approved by the Foodand Drug Administration.PATIENT WAS FASTINGPERFORMED BY: [email or web address] [address] [id number] BY: [employer]6370 [facility] [id number] MCH (RBC) [Entitic mass] 31.0 pg Normal 26.6-33.0 [facility] Work Phone: Comment on above: Test(s) 284601-MKO-L ; 439180-JEM-H; 713970-Vuejoozqufxld; 776718-Rgcdxxisgmd, Total; 609259-WIO-M (Total); 095476-Ueyao LDL-P; 571126-KVX Size; 292668-LE-NP Scorewas developed and its performance characteristics determinedby EVRGR. It has not been cleared or approved by the Foodand Drug Administration.PATIENT WAS FASTINGPERFORMED BY: [email or web address] [address] [id number] BY: [employer] Qmzfhc8858 [facility] [id number] MCHC (RBC) [Mass/Vol] 33.8 g/dL Normal 31.5-35.7 [facility] Internal Medicine Work Phone: Comment on above: Test(s) 239440-ABB-C ; 686872-VXL-X; 384844-Bodqrxillmlco; 180258-Xqvmuyicskw, Total; 184280-AET-Z (Total); 457332-Sbejc LDL-P; 018147-JEK Size; 203136-ZJ-QQ Scorewas developed and its performance characteristics determinedby EVRGR. It has not been cleared or approved by the Foodand Drug Administration.PATIENT WAS FASTINGPERFORMED BY: [employer] [place] [id number] BY: MD Lingo6370 [facility] [id number] MCV (RBC) [Entitic vol] 92 fL Normal 79-97 [facility] Internal [facility] Work Phone: Comment on above: Test(s) 058917-BIG-V ; 736140-MZU-B; 605222-Mqxuxatbflolz; 004136-Smodxrjithe, Total; 007602-FMO-N (Total); 158325-Ovpiw LDL-P; 497209-QKS Size; 310047-LS-CB Scorewas developed and its performance characteristics determinedby EVRGR. It has not been cleared or approved by the Foodand Drug Administration.PATIENT WAS FASTINGPERFORMED BY: [email or web address] [address] [id number] BY: YooliAstra Health CenterIcmnzz9760 [facility] [id number] Platelets (Bld) [#/Vol] 207 {x10E3/uL} Normal 150-450 [facility] Work Phone: Comment on above: Test(s) 382755-INX-V ; 164221-XQA-W; 783892-Vazpirlundxaq; 015619-Qlzfqmpqfbl, Total; 662229-ASO-P (Total); 276563-Lfskr LDL-P; 832979-LOX Size; 285777-IT-RN Scorewas developed and its performance characteristics determinedby EVRGR. It has not been cleared or approved by the Foodand Drug Administration.PATIENT WAS FASTINGPERFORMED BY: [email or web address] [address] [id number] BY: [employer] Zkohrs1369 [facility] [id number] Platelets (Bld) [#/Vol] 207 10*3/uL Normal 150-450 [facility]; [facility] Work Phone: RBC (Bld) [#/Vol] 4.84 {x10E6/uL} Normal 4.14-5.80 [facility] Internal Medicine Work Phone: Comment on above: Test(s) 779035-LNQ-E ; 270910-TCZ-U; 686772-Polzpcdpszcre; 187601-Eoskladtqed, Total; 987917-QHP-I (Total); 833725-Bifvz LDL-P; 906868-BNY Size; 441155-MS-UX Scorewas developed and its performance characteristics determinedby EVRGR. It has not been cleared or approved by the Foodand Drug Administration.PATIENT WAS FASTINGPERFORMED BY: [email or web address] Myfdxwyvzk0335 [facility] [id number] BY: [employer] Uvkfgj7030 [facility] [id number] RBC (Bld) [#/Vol] 4.84 10*6/uL Normal 4.14-5.80 [facility]; [facility] Work Phone: WBC (Bld) [#/Vol] 7.1 {x10E3/uL} Normal 3.4-10.8 [facility] Work Phone: Comment on above: Test(s) 512757-TSP-H ; 877456-AGC-N; 835742-Auquuilwujvqp; 869588-Moilozwjbnb, Total; 743953-WKJ-R (Total); 797474-Iuwas LDL-P; 699349-EMG Size; 181557-MP-KN Scorewas developed and its performance characteristics determinedby EVRGR. It has not been cleared or approved by the Foodand Drug Administration.PATIENT WAS FASTINGPERFORMED BY: EVRGR [address] [id number] BY: RawporterNew Sunrise Regional Treatment CenterHjreeg9687 [facility] [id number] WBC (Bld) [#/Vol] 7.1 10*3/uL Normal 3.4-10.8 [facility]; [facility] Work Phone: METABOLIC PANEL, COMPREHENSI VE ([phone])Ordered By: Client Advisor on 08-08-2020 Albumin [Mass/Vol] 4.3 g/dL Normal 3.6-4.6 [facility] Internal Medicine Work Phone: Comment on above: Test(s) 800264-DRS-I ; 352579-JPZ-V; 220711-Cvpbxtwnopjtp; 794559-Xgmvgazsswt, Total; 534225-FVC-N (Total); 314008-Ykfho LDL-P; 465114-SPS Size; 720667-YI-UA Scorewas developed and its performance characteristics determinedby EVRGR. It has not been cleared or approved by the Foodand Drug Administration.PATIENT WAS FASTINGPERFORMED BY: EVRGR [address] [id number] BY: [employer]6370 [facility] [id number] Albumin/Globulin [Mass ratio] 2.0 {ratio} Normal 1.2-2.2 [facility] Work Phone: Comment on above: Test(s) 282447-EPX-Y ; 087307-SBR-I; 296947-Qejewkrltcmfc; 123825-Sjaogokmbfb, Total; 788372-JIS-S (Total); 203873-Olrmm LDL-P; 196780-JWD Size; 056554-XO-XG Scorewas developed and its performance characteristics determinedby EVRGR. It has not been cleared or approved by the Foodand Drug Administration.PATIENT WAS FASTINGPERFORMED BY: Rawporter[address] [id number] BY: [employer]porter Olzyyz7770 [facility] [id number] ALP [Catalytic activity/Vol] 136 [iU]/L Abnormal 39-117 [facility] Work Phone: Comment on above: Test(s) 404097-JPV-X ; 581556-ATB-J; 025988-Qhenhbcxxdtzk; 316758-Fjdxvewkfnc, Total; 362696-LSJ-S (Total); 141051-Muzyi LDL-P; 904344-LGK Size; 853261-HW-AG Scorewas developed and its performance characteristics determinedby EVRGR. It has not been cleared or approved by the Foodand Drug Administration.PATIENT WAS FASTINGPERFORMED BY: EVRGR [address] [id number] BY: RawporterAstra Health CenterBuqshf5897 [facility] [id number] ALP [Catalytic activity/Vol] 136 U/L Abnormal 39-117 [facility]; [facility] Work Phone: ALT [Catalytic activity/Vol] 14 [iU]/L Normal 0-44 [facility] Work Phone: Comment on above: Test(s) 221178-BBE-M ; 200567-PKT-F; 121466-Crcutdntdujay; 231255-Tbhrerodjga, Total; 894533-XTQ-E (Total); 510746-Mmrgg LDL-P; 004505-JOD Size; 521944-KV-RW Scorewas developed and its performance characteristics determinedby EVRGR. It has not been cleared or approved by the Foodand Drug Administration.PATIENT WAS FASTINGPERFORMED BY: Rawporter[address] [id number] BY: RawporterAstra Health CenterZkcibn1845 [facility] [id number] ALT [Catalytic activity/Vol] 14 U/L Normal 0-44 [facility]; [facility] Work Phone: AST [Catalytic activity/Vol] 18 [iU]/L Normal 0-40 [facility] Internal Medicine Work Phone: Comment on above: Test(s) 854300-RKV-P ; 115231-QLG-S; 106827-Kxwimrbyufssx; 509160-Nufxokbupot, Total; 610494-WRN-Z (Total); 650502-Noagl LDL-P; 482063-LAC Size; 175621-KA-EG Scorewas developed and its performance characteristics determinedby EVRGR. It has not been cleared or approved by the Foodand Drug Administration.PATIENT WAS FASTINGPERFORMED BY: [employer] [place] [id number] BY: [employer]70 [facility] [id number] AST [Catalytic activity/Vol] 18 U/L Normal 0-40 [facility] Internal [facility]; [facility] Work Phone: Bilirubin [Mass/Vol] 1.1 mg/dL Normal 0.0-1.2 [facility] Internal Medicine Work Phone: Comment on above: Test(s) 365204-HJL-M ; 222540-JQX-S; 603004-Kuibbpzxraltn; 129489-Jdzmzzhbtsf, Total; 182965-DND-O (Total); 571644-Gvlot LDL-P; 292006-NKF Size; 794594-UA-AW Scorewas developed and its performance characteristics determinedby EVRGR. It has not been cleared or approved by the Foodand Drug Administration.PATIENT WAS FASTINGPERFORMED BY: [email or web address] [address] [id number] BY: [employer]70 [facility] [id number] Calcium [Mass/Vol] 9.2 mg/dL Normal 8.6-10.2 [facility] Internal Medicine Work Phone: Comment on above: Test(s) 379189-AGN-S ; 347229-UKK-K; 836253-Nqynyjmbcnsyb; 783558-Ezxzlrzkkec, Total; 650494-ICY-S (Total); 592415-Uplwn LDL-P; 280260-QWQ Size; 897911-CP-WM Scorewas developed and its performance characteristics determinedby EVRGR. It has not been cleared or approved by the Foodand Drug Administration.PATIENT WAS FASTINGPERFORMED BY: [email or web address] [address] [id number] BY: [employer]70 [facility]of[facility] InstrumentsUNC Health Blue Ridge [id number] Chloride [Moles/Vol] 106 mmol/L Normal 96-106 [facility] Internal Medicine Work Phone: Comment on above: Test(s) 774334-FMD-J ; 223673-QRH-I; 681720-Cqgpuwigvvuok; 183863-Anncwfpezwj, Total; 840016-KRX-Z (Total); 024405-Vbxch LDL-P; 904488-OYM Size; 783622-UK-OB Scorewas developed and its performance characteristics determinedby EVRGR. It has not been cleared or approved by the Foodand Drug Administration.PATIENT WAS FASTINGPERFORMED BY: [email or web address] [address] [id number] BY: [employer]70 Nanofactory InstrumentsUNC Health Blue Ridge [id number] CO2 [Moles/Vol] 23 mmol/L Normal 20-29 [facility] Internal Medicine Work Phone: Comment on above: Test(s) 707718-IME-U ; 073625-EPU-F; 636923-Sosqxrrqqezqr; 784055-Iycsdmspwkv, Total; 139414-PDG-R (Total); 132809-Xurno LDL-P; 095442-IVE Size; 959465-VI-JQ Scorewas developed and its performance characteristics determinedby EVRGR. It has not been cleared or approved by the Foodand Drug Administration.PATIENT WAS FASTINGPERFORMED BY: [email or web address] [address] [id number] BY: MD Lingo6370 [facility]of[facility] InstrumentsUNC Health Blue Ridge [id number] Creatinine [Mass/Vol] 1.04 mg/dL Normal 0.76-1.27 [facility] Internal Medicine Work Phone: Comment on above: Test(s) 254235-SJM-E ; 329922-VKL-Q; 604736-Johhphgdkmvzt; 675408-Olaaxthkdmw, Total; 042531-KSV-D (Total); 202682-Agjoi LDL-P; 868306-TCS Size; 635442-KJ-YJ Scorewas developed and its performance characteristics determinedby EVRGR. It has not been cleared or approved by the Foodand Drug Administration.PATIENT WAS FASTINGPERFORMED BY: [employer] [place] [id number] BY: [email or web address] [facility] [id number] GFR/1.73 sq M predicted among blacks CKD-EPI (S/P/Bld) [Vol rate/Area] 76 mL/min/1.73 [facility] Internal Medicine Work Phone: Comment on above: Test(s) 081373-BUB-Q ; 750788-OJZ-C; 951075-Bgjflgtqseorg; 627237-Brpjokrdtfb, Total; 887117-TCM-I (Total); 838642-Ilyux LDL-P; 889133-DAQ Size; 994481-TA-AM Scorewas developed and its performance characteristics determinedby EVRGR. It has not been cleared or approved by the Foodand Drug Administration.PATIENT WAS FASTINGPERFORMED BY: [email or web address] [address] [id number] BY: MD Lingo6370 [facility] [id number] GFR/1.73 sq M predicted among non-blacks CKD-EPI (S/P/Bld) [Vol rate/Area] 66 mL/min/1.73 Normal [facility] Work Phone: Comment on above: Test(s) 817141-WUG-A ; 063234-XIP-C; 158926-Mdevjgcmyswsh; 165100-Rnkjpckjzjw, Total; 824156-YAB-F (Total); 909845-Fgbmj LDL-P; 945922-LNE Size; 120100-GZ-YO Scorewas developed and its performance characteristics determinedby EVRGR. It has not been cleared or approved by the Foodand Drug Administration.PATIENT WAS FASTINGPERFORMED BY: [email or web address] [address] [id number] BY: MD Lingo6370 [facility]UNC [facility] [id number] Globulin (S) [Mass/Vol] 2.1 g/dL Normal 1.5-4.5 [facility] Internal Medicine Work Phone: Comment on above: Test(s) 707816-NQD-I ; 916142-FXK-X; 157273-Gssendylwuaff; 748984-Ctmczgcattl, Total; 275710-YZT-S (Total); 720459-Aaxha LDL-P; 003152-TOM Size; 093315-RT-SA Scorewas developed and its performance characteristics determinedby EVRGR. It has not been cleared or approved by the Foodand Drug Administration.PATIENT WAS FASTINGPERFORMED BY: [email or web address] [address] [id number] BY: [employer]70 [facility]of[facility] InstrumentsUNC Health Blue Ridge [id number] Glucose [Mass/Vol] 194 mg/dL Abnormal 65-99 [facility] Internal Medicine Work Phone: Comment on above: Test(s) 019050-VGR-G ; 749390-RGB-P; 941885-Exupzhdzauriz; 041536-Cczwevvzyhn, Total; 783674-ZNO-E (Total); 766987-Tkirb LDL-P; 952970-LSG Size; 512935-ZI-OX Scorewas developed and its performance characteristics determinedby EVRGR. It has not been cleared or approved by the Foodand Drug Administration.PATIENT WAS FASTINGPERFORMED BY: [email or web address] [address] [id number] BY: MD Lingo6370 [facility] BixUNC [facility] [id number] Potassium [Moles/Vol] 4.3 mmol/L Normal 3.5-5.2 [facility] Internal Medicine Work Phone: Comment on above: Test(s) 283223-EQS-D ; 062716-LDZ-I; 746689-Muhpfportpmow; 657625-Fjrhpbmvjzj, Total; 706242-NEJ-K (Total); 733721-Lfkrx LDL-P; 285656-FOY Size; 119268-ZW-BG Scorewas developed and its performance characteristics determinedby EVRGR. It has not been cleared or approved by the Foodand Drug Administration.PATIENT WAS FASTINGPERFORMED BY: [email or web address] [address] [id number] BY: [facility] Rgoxeb6647 [facility] [id number] Protein [Mass/Vol] 6.4 g/dL Normal 6.0-8.5 [facility] Internal Medicine Work Phone: Comment on above: Test(s) 166818-ATA-P ; 452586-FBP-Q; 986210-Rwnvnaqqawjpx; 723653-Vqxnuxqyzto, Total; 378212-CKA-M (Total); 440195-Dpaii LDL-P; 539932-VFT Size; 000926-PG-VF Scorewas developed and its performance characteristics determinedby EVRGR. It has not been cleared or approved by the Foodand Drug Administration.PATIENT WAS FASTINGPERFORMED BY: [email or web address] [address] [id number] BY: [facility] Rynfzp8265 [facility] [id number] Sodium [Moles/Vol] 142 mmol/L Normal 134-144 [facility] Internal Medicine Work Phone: Comment on above: Test(s) 636177-ZTU-G ; 338287-CAD-H; 421790-Nekbqbbaplnok; 430438-Xcetwhpwdvv, Total; 878152-XPQ-W (Total); 347260-Iqmcn LDL-P; 484258-XXS Size; 976409-CR-YC Scorewas developed and its performance characteristics determinedby EVRGR. It has not been cleared or approved by the Foodand Drug Administration.PATIENT WAS FASTINGPERFORMED BY: [email or web address] [address] [id number] BY: RawporterAstra Health CenterEcftcv1338 [facility] [id number] Urea nitrogen [Mass/Vol] 15 mg/dL Normal 8- [facility] Work Phone: Comment on above: Test(s) 230870-DQZ-Q ; 721254-JPL-J; 329684-Pskssttprbcum; 790430-Lcaclvibone, Total; 923916-DWM-H (Total); 345442-Wzwwx LDL-P; 816882-QFS Size; 801957-FE-AX Scorewas developed and its performance characteristics determinedby EVRGR. It has not been cleared or approved by the Foodand Drug Administration.PATIENT WAS FASTINGPERFORMED BY: [email or web address] [address] [id number] BY: [employer]70 [facility] [id number] Urea nitrogen/Creatinine [Mass ratio] 14 mg/mg Normal 10- [facility] Work Phone: Comment on above: Test(s) 944949-VJZ-C ; 085100-ZHE-X; 052868-Mkaelqtwsjjwe; 551479-Chhjnijpmld, Total; 768492-HMC-W (Total); 216980-Yynrx LDL-P; 586827-LPI Size; 309441-GG-JP Scorewas developed and its performance characteristics determinedby EVRGR. It has not been cleared or approved by the Foodand Drug Administration.PATIENT WAS FASTINGPERFORMED BY: [employer] [id number] BY: YooliAstra Health CenterIaunwe6560 [facility] [id number] MICROALBUMINOrdered By: [employer] Lead on 08-08-2020 Albumin DL <= 20 mg/L (U) [Mass/Vol] 43.2 ug/mL Normal [facility] Work Phone: Comment on above: Test(s) 418726-JHS-D ; 867950-OCE-B; 253835-Vdlkiscgfadwx; 379415-Ybekhgemdrl, Total; 200314-DRE-L (Total); 760265-Lnhae LDL-P; 956570-BBY Size; 293239-IY-IN Scorewas developed and its performance characteristics determinedby EVRGR. It has not been cleared or approved by the Foodand Drug Administration.PATIENT WAS FASTINGPERFORMED BY: [email or web address] [address] [id number] BY: [employer] [place] [address] [id number] Albumin/Creatinine (U) [Mass ratio] 22 {mg/g_creat} Normal 0-29 [facility] Work Phone: Comment on above: Normal: 0 - 29 Moder ately increased: 30 - 300 Severely increased: >300 Test(s) 712330-RTH-X ; 701873-AFG-S; 871783-Jhvtupbzugymm; 054588-Sbsonnvcinm, Total; 278912-AWS-J (Total); 194468-Qzaae LDL-P; 474138-BNE Size; 077138-WC-NN Scorewas developed and its performance characteristics determinedby EVRGR. It has not been cleared or approved by the Foodand Drug Administration.PATIENT WAS FASTINGPERFORMED BY: [email or web address] [address] [id number] BY: [employer]6370 [facility] [id number] Creatinine (U) [Mass/Vol] 196.9 mg/dL Normal [facility] Work Phone: Comment on above: Test(s) 662541-RCU-S ; 228993-DRC-R; 580346-Uudpeevuplbrc; 152943-Tabhijmjbfn, Total; 668293-MPX-B (Total); 625284-Buqhr LDL-P; 433539-RKQ Size; 226837-EP-NE Scorewas developed and its performance characteristics determinedby EVRGR. It has not been cleared or approved by the Foodand Drug Administration.PATIENT WAS FASTINGPERFORMED BY: [email or web address] [address] [id number] BY: MD Lingo6370 [facility] InstrumentsUNC Health [facility] [id number] NMR Profile (81628)Ordered B y: Client Advisor on 08-08-2020 Cholesterol [Mass/Vol] 107 mg/dL Normal 100-199 [facility] Work Phone: Comment on above: Test(s) 698627-NLS-L ; 528296-XHU-L; 730960-Ajjasdivekyfz; 422890-Hzhjcridiai, Total; 105797-KZX-R (Total); 165985-Helmj LDL-P; 576720-TYE Size; 659623-PN-UG Scorewas developed and its performance characteristics determinedby EVRGR. It has not been cleared or approved by the Foodand Drug Administration.PATIENT WAS FASTINGPERFORMED BY: [employer] [place] [id number] BY: [employer]70 Nanof[employer] InstrumentsUNC Health Blue Ridge [id number] Lipoprotein.alpha [Moles/Vol] 25.3 umol/L Abnormal [facility] Work Phone: Comment on above: Test(s) 706164-IVS-O ; 877533-VZI-V; 856287-Dwghlygtrmvnb; 581697-Gsufyeejuqs, Total; 118716-ZNW-M (Total); 685927-Kozlh LDL-P; 693877-XIB Size; 986928-FK-WU Scorewas developed and its performance characteristics determinedby EVRGR. It has not been cleared or approved by the Foodand Drug Administration.PATIENT WAS FASTINGPERFORMED BY: [email or web address] [address] [id number] BY: MD Lingo6370 [facility] BixUNC Health [facility] Ridge [id number] Lipoprotein.beta.subp article [Entitic length] 21.0 nm Normal [facility] Work Phone: Comment on above: INTERPRETATIVE INFORMATION PARTICLE CONCENTRATION AND SIZE <--Lower CVD Risk Higher CVD Risk--> LDL AND HDL PARTICLES Percentile in Reference Population HDL-P (total) High 75th 50th 25th Low >34.9 34.9 30.5 26.7 <26.7 . Small LDL-P Low 25th 50th 75th High <117 117 527 839 >839 . LDL Size <-Large (Pattern A)-> <-Small (Pattern B)-> 23.0 20.6 20.5 19.0 Small LDL-P and LDL Size are associated with CVD risk, but not afterLDL-P is taken into account. Test(s) 357038-KUI-M ; 721474-TMT-V; 931732-Rbwsuvylsdvxv; 481631-Fqzjwpupirm, Total; 164814-GHT-H (Total); 722449-Gysac LDL-P; 008887-UPP Size; 986530-WX-IV Scorewas developed and its performance characteristics determinedby EVRGR. It has not been cleared or approved by the Foodand Drug Administration.PATIENT WAS FASTINGPERFORMED BY: [employer] [address] [id number] BY: EVRGR [address] [id number] Lipoprotein.beta.subp article [Moles/Vol] 684 nmol/L Normal Comprehens[facility] e Internal Medicine Work Phone: Comment on above: Low < 1000 Moderate 1000 - 1299 Borderline-High 1300 - 1599 High 1600 - 2000 Very High > 2000 Test(s) 100143-MKK-K ; 827898-ZQV-Q; 200479-Tbgkouzwazzia; 884625-Tuekaektudv, Total; 964054-ZXI-K (Total); 806258-Sihzh LDL-P; 641839-DGO Size; 690268-LT-QE Scorewas developed and its performance characteristics determinedby EVRGR. It has not been cleared or approved by the Foodand Drug Administration.PATIENT WAS FASTINGPERFORMED BY: [email or web address] [address] [id number] BY: YooliNew Sunrise Regional Treatment CenterYistbl1054 [facility] [id number] Lipoprotein.beta.subp article.small [Moles/Vol] 114 nmol/L Normal [facility] Work Phone: Comment on above: Test(s) 193632-TEM-E ; 803675-CBB-I; 382968-Vnfgfizhharyv; 763887-Hfpscroqlic, Total; 120079-UEO-S (Total); 862336-Nrdtj LDL-P; 490191-QXD Size; 739010-ZA-CZ Scorewas developed and its performance characteristics determinedby [employer]. It has not been cleared or approved by the Foodand Drug Administration.PATIENT WAS FASTINGPERFORMED BY: [employer] [place] [id number] BY: MD Lingo6370 [facility] [id number] Triglyceride [Mass/Vol] 69 mg/dL Normal 0-149 [facility] Work Phone: Comment on above: Test(s) 666976-INK-V ; 182315-TRT-E; 570062-Ocsczcruprfsq; 225233-Wzcametsxlo, Total; 313408-GSP-L (Total); 800431-Oloto LDL-P; 410143-RWE Size; 994107-KP-YA Scorewas developed and its performance characteristics determinedby [employer]. It has not been cleared or approved by the Foodi-Human Patients Drug Administration.PATIENT WAS FASTINGPERFORMED BY: [email or web address] [address] [id number] BY: YooliAstra Health CenterJhdixl4801 [facility] [id number] NMR Profile (31309) 60 mg/dL Normal 0-99 [facility] Internal Medicine Work Phone: Comment on above: . Optimal < 100 Abov e optimal 100 - 129 Borderline 130 - 159 High 160 - 189 Very high > 189 . Test(s) 760294-UHB-J ; 856088-WWK-B; 484662-Cbrxhgiyxakud; 068052-Bipuxdjrmvu, Total; 830744-HLM-U (Total); 163094-Ezonb LDL-P; 559679-FFQ Size; 116185-XL-TJ Scorewas developed and its performance characteristics determinedby EVRGR. It has not been cleared or approved by the Foodand Drug Administration.PATIENT WAS FASTINGPERFORMED BY: [email or web address] Diiboovjix3923 [facility] [id number] BY: [facility] Sjanpq5910 [facility] [id number] NMR Profile (13717) 32 mg/dL Abnormal [facility] Internal Medicine Work Phone: Comment on above: Test(s) 405322-OZV-B ; 817332-URY-I; 775499-Mzhvhwipojlsl; 945911-Xvezcrbadkw, Total; 511076-EOD-I (Total); 933625-Ucsfy LDL-P; 284579-MQG Size; 595254-JV-ND Scorewas developed and its performance characteristics determinedby EVRGR. It has not been cleared or approved by the Foodand Drug Administration.PATIENT WAS FASTINGPERFORMED BY: [email or web address] Jckstzfufy8242 [facility] [id number] BY: [facility] Vflery5090 [facility] [id number] NMR Profile (56821) 69 mg/dL Normal 0-149 [facility]; [facility] Work Phone: NMR Profile (09294) 107 mg/dL Normal 100-199 [facility]; [facility] Work Phone: TSH (THYROID STIMULATING HOR FAWN) (56027)Ordered By: Client Advisor on 08-08-2020 TSH Qn 2.010 {uIU/mL} Normal 0.450-4.50 0 [facility] Work Phone: Comment on above: Test(s) 383394-CSQ-C ; 073279-ERH-R; 414166-Ulcjyhudvtgmo; 102908-Zulipxxnpjv, Total; 040243-YGX-S (Total); 023985-Ojeid LDL-P; 203205-VIV Size; 807963-TA-GS Scorewas developed and its performance characteristics determinedby EVRGR. It has not been cleared or approved by the Foodand Drug Administration.PATIENT WAS FASTINGPERFORMED BY: [email or web address] [address] [id number] BY: [employer]70 [facility]of[employer] InstrumentsUNC Health [facility] Ridge [id number] URINALYSIS W MICROSCOPY (810 00)Ordered By: Client Advisor on 08-08-2020 Appearance (U) Clear Normal Comprehens shawn Internal Medicine Work Phone: Comment on above: Test(s) 349426-EKQ-U ; 159090-YCB-M; 516287-Vrsqvjzuyuoup; 071614-Pxjfcdaiiou, Total; 623441-RBT-B (Total); 973497-Swagi LDL-P; 523260-EAX Size; 568756-QD-JX Scorewas developed and its performance characteristics determinedby EVRGR. It has not been cleared or approved by the Foodand Drug Administration.PATIENT WAS FASTINGPERFORMED BY: [email or web address] [address] [id number] BY: [employer]70 [facility]of[employer] InstrumentsUNC Health [facility] [id number] Bilirubin Ql (U) Negative Normal Comprehe nsive Internal Medicine Work Phone: Comment on above: Test(s) 104723-NNJ-E ; 036266-VUP-D; 667016-Tnvrmigmdpqfu; 417260-Ucrrpgyturu, Total; 666511-BQJ-D (Total); 394440-Qgedt LDL-P; 640853-NLC Size; 405703-XS-ZQ Scorewas developed and its performance characteristics determinedby EVRGR. It has not been cleared or approved by the Foodand Drug Administration.PATIENT WAS FASTINGPERFORMED BY: [email or web address] [address] [id number] BY: [employer]70 [employer]of[employer] InstrumentsUNC Health [facility] [id number] Bilirubin Ql (U) Negative Normal Comprehe nsive Internal Medicine; [facility] Work Phone: Color (U) Yellow Normal [facility] Work Phone: Comment on above: Test(s) 125413-HSA-T ; 840323-FAI-F; 521448-Kwtpagkshyurc; 409838-Nrragmmsrhx, Total; 179028-CSQ-G (Total); 493142-Zgcne LDL-P; 008586-BFU Size; 208217-BR-JU Scorewas developed and its performance characteristics determinedby EVRGR. It has not been cleared or approved by the Foodand Drug Administration.PATIENT WAS FASTINGPERFORMED BY: [employer] [place] [id number] BY: [facility] Itsobe5926 [facility] [id number] Glucose Ql (U) Negative Normal Comprehens [facility]awn Internal Medicine Work Phone: Comment on above: Test(s) 318760-GAV-F ; 419096-MPU-W; 644718-Fblkvdwvmssog; 907479-Rpvpspvviaq, Total; 066877-OGQ-V (Total); 278715-Ajyrq LDL-P; 754676-ZMP Size; 699516-ZS-ZT Scorewas developed and its performance characteristics determinedby EVRGR. It has not been cleared or approved by the Foodand Drug Administration.PATIENT WAS FASTINGPERFORMED BY: [employer] [place] [id number] BY: YooliAstra Health CenterOshzwf8650 [facility] [id number] Glucose Ql (U) Negative Normal Comprehens [facility]; [facility] Work Phone: Hemoglobin Ql (U) Negative Normal Compreh ensive Internal Medicine Work Phone: Comment on above: Test(s) 339268-TWK-Z ; 197403-FVU-T; 809023-Hmgquayvrswdi; 496450-Qdnjfmmkzvt, Total; 197124-LNN-H (Total); 412459-Evccy LDL-P; 612146-GPK Size; 900744-CL-ZW Scorewas developed and its performance characteristics determinedby EVRGR. It has not been cleared or approved by the Foodand Drug Administration.PATIENT WAS FASTINGPERFORMED BY: [email or web address] [address] [id number] BY: [employer] Nvvhot9244 [facility] InstrumentsUNC Health [facility] [id number] Hemoglobin Ql (U) Negative Normal Compreh ensive Internal Medicine; [facility] Work Phone: Ketones Ql (U) Trace Abnormal Comprehens shawn [facility] Medicine Work Phone: Comment on above: Test(s) 015783-DWU-X ; 532084-SJN-G; 806342-Jxrnvsdnmyhvd; 692413-Txuqcapshig, Total; 894710-JOC-M (Total); 473057-Kbklu LDL-P; 812441-PII Size; 511165-AN-CU Scorewas developed and its performance characteristics determinedby EVRGR. It has not been cleared or approved by the Foodand Drug Administration.PATIENT WAS FASTINGPERFORMED BY: [email or web address] [address] [id number] BY: [employer]70 [employer] InstrumentsUNC Health Blue Ridge [id number] Leukocyte esterase Test strip Ql (U) Negative Normal [facility] Work Phone: Comment on above: Test(s) 721423-BWQ-A ; 284417-FBQ-O; 901584-Cmcqkdqidorzi; 686902-Kcrtsbljocq, Total; 314265-FMK-K (Total); 532254-Jbdml LDL-P; 935958-JYA Size; 058277-IN-TM Scorewas developed and its performance characteristics determinedby EVRGR. It has not been cleared or approved by the Foodand Drug Administration.PATIENT WAS FASTINGPERFORMED BY: [employer] [id number] BY: MD Lingo6370 [facility] InstrumentsUNC Health Blue [facility] [id number] Leukocyte esterase Test strip Ql (U) Negative Normal [facility]; [facility] Work Phone: Microscopic observation LM Nom (Urine sed) MICNIP Normal [facility] Work Phone: Comment on above: Microscopic not sander cated and not performed. Test(s) 120348-PYS-R ; 467789-QCA-V; 308746-Wujbwmhhxyqwz; 428248-Qaghwjogqkh, Total; 239312-KQE-O (Total); 655111-Ijzsc LDL-P; 407354-YZF Size; 731955-WD-QB Scorewas developed and its performance characteristics determinedby EVRGR. It has not been cleared or approved by the Foodand Drug Administration.PATIENT WAS FASTINGPERFORMED BY: [employer] [place] [id number] BY: [email or web address] [facility] [id number] Nitrite Ql (U) Negative Normal Comprehens shawn Internal Medicine Work Phone: Comment on above: Test(s) 168937-HQF-D ; 443025-NHN-N; 642732-Vmemsdggxijzy; 664642-Qtcdvnnmsxl, Total; 056645-HGS-X (Total); 544017-Zjdgz LDL-P; 896662-VTM Size; 635703-DL-GI Scorewas developed and its performance characteristics determinedby EVRGR. It has not been cleared or approved by the Foodand Drug Administration.PATIENT WAS FASTINGPERFORMED BY: [employer] [place] [id number] BY: MD Lingo6370 [facility] [id number] Nitrite Ql (U) Negative Normal Comprehens [facility]; [facility] Work Phone: pH (U) 5.5 [pH] Normal 5.0-7.5 [facility] Work Phone: Comment on above: Test(s) 157407-BWO-J ; 433885-SNU-D; 481961-Kkppnxtkgfbsm; 791137-Arzrnszhupi, Total; 711577-OWQ-Q (Total); 203754-Lifnz LDL-P; 272154-DWE Size; 465225-GD-LE Scorewas developed and its performance characteristics determinedby EVRGR. It has not been cleared or approved by the Foodand Drug Administration.PATIENT WAS FASTINGPERFORMED BY: [email or web address] [address] [id number] BY: [employer]70 [employer] InstrumentsUNC Health [facility] [id number] Protein Ql (U) Trace Normal Comprehens [facility] Internal Medicine Work Phone: Comment on above: Test(s) 380902-IKP-P ; 868718-NWG-U; 636575-Grkofxsphchqi; 009509-Itckhofhzxs, Total; 752564-ROG-U (Total); 520745-Tdayp LDL-P; 212618-VRP Size; 310726-KE-UE Scorewas developed and its performance characteristics determinedby EVRGR. It has not been cleared or approved by the Foodand Drug Administration.PATIENT WAS FASTINGPERFORMED BY: [employer] [place] [id number] BY: [employer]70 [facility]of[facility] InstrumentsUNC Health [facility] [id number] Specific gravity (U) [Rel density] 1.023 1 Normal 1.005-1.03 0 [facility] Internal Medicine Work Phone: Comment on above: Test(s) 889665-RMW-I ; 811781-UUE-T; 752416-Dljzzurdbxbuj; 818121-Qwihvpzcbnj, Total; 665237-RXS-K (Total); 361709-Vkrgk LDL-P; 437314-WWL Size; 487504-MB-OG Scorewas developed and its performance characteristics determinedby EVRGR. It has not been cleared or approved by the Foodand Drug Administration.PATIENT WAS FASTINGPERFORMED BY: [email or web address] [address] [id number] BY: MD Lingo6370 [facility] InstrumentsUNC Health [facility] [id number] Urobilinogen (U) [Mass/Vol] 1.0 mg/dL Normal 0.2-1.0 [facility]; [facility] Work Phone: Urobilinogen Test strip (U) [Mass/Vol] 1.0 mg/dL Normal 0.2-1.0 Comprehensi Internal Medicine Work Phone: Comment on above: Test(s) 129161-RKM-F ; 609923-ZJJ-N; 016777-Cemfmrejuguvg; 372857-Iccmuxlfqns, Total; 686057-BVM-M (Total); 926649-Nwydx LDL-P; 176372-VJA Size; 839441-PT-FT Scorewas developed and its performance characteristics determinedby EVRGR. It has not been cleared or approved by the Foodand Drug Administration.PATIENT WAS FASTINGPERFORMED BY: [facility] [address] [id number] BY: CB [facility] Wpadkh9813 [facility] [id number] Blood Glucose , Office (1096 2)Ordered By: Candie Ramirez on 06-26-2020 Glucose Glucometer (BldC) [Moles/Vol] 145 1 Normal [facility] Work Phone: HgA1C , Office ([phone])Ordere d By: Candie Ramirez on 06-26-2020 HbA1c (Bld) [Mass fraction] 6.0 % Normal 4.6 - 7.1 [facility] Work Phone: Blood Glucose , Office ([phone])Ordered By: Yen Nolan on 02-25-2020 Glucose Glucometer (BldC) [Moles/Vol] 114 1 Normal [facility] Work Phone: HgA1C , Office ([phone])Ordere d By: Isabelle Patiño on 02-25-2020 HbA1c (Bld) [Mass fraction] 6.2 % Normal 4.6 - 7.1 [facility] Work Phone: CBC with auto diff ([phone])Or dered By: Client Advisor on 02-20-2020 Basophils (Bld) [#/Vol] 0.0 {x10E3/uL} Normal 0.0-0.2 [facility] Work Phone: Comment on above: Test(s) 609975-WPP-A ; 569513-YZO-P; 235163-JKY-B; 036566-Nwsmckinwxwdh; 892584-Ifayzzuited, Total; 574812-SBZ-P (Total);862231-Ubwmg LDL-P; 353947-YXX Size; 112124-DG-KQ Scorewas developed and its performance characteristics determinedby EVRGR. It has not been cleared or approved by the Foodand Drug Administration.PATIENT WAS FASTINGPERFORMED BY: [email or web address] [address] [id number] BY: [employer]70 [facility] [id number] Basophils (Bld) [#/Vol] 0.0 10*3/uL Normal 0.0-0.2 [facility]; [facility] Work Phone: Basophils/100 WBC (Bld) 0 % Normal [facility] Work Phone: Comment on above: Test(s) 510359-KEB-T ; 531941-IYU-R; 044736-XIQ-P; 246605-Jptrsahvtnbzk; 885874-Lhvfwrsmzaw, Total; 389870-LPF-X (Total);239541-Zxhch LDL-P; 923903-DMR Size; 979264-CH-GL Scorewas developed and its performance characteristics determinedby EVRGR. It has not been cleared or approved by the Foodand Drug Administration.PATIENT WAS FASTINGPERFORMED BY: [email or web address] [address] [id number] BY: MD Lingo6370 [facility] [id number] Eosinophils (Bld) [#/Vol] 0.1 {x10E3/uL} Normal 0.0-0.4 [facility] Work Phone: Comment on above: Test(s) 198817-AWR-W ; 701847-BHL-U; 785281-BLD-P; 431186-Enhclyovivocx; 846281-Nsslatywlau, Total; 155109-DZF-H (Total);133129-Rcbrs LDL-P; 045393-HRO Size; 878264-QD-FK Scorewas developed and its performance characteristics determinedby EVRGR. It has not been cleared or approved by the Foodand Drug Administration.PATIENT WAS FASTINGPERFORMED BY: [email or web address] [address] [id number] BY: EVRGR Ewrmnh4911 [facility] [id number] Eosinophils (Bld) [#/Vol] 0.1 10*3/uL Normal 0.0-0.4 [facility]; [facility] Work Phone: Eosinophils/100 WBC (Bld) 2 % Normal [facility] Work Phone: Comment on above: Test(s) 414980-BMI-U ; 124153-AEE-D; 846108-KTN-P; 031217-Hewqkoqjwugil; 918202-Dhzppcoqawc, Total; 669784-JXF-C (Total);687989-Kjpvq LDL-P; 221385-GXY Size; 163384-DM-NA Scorewas developed and its performance characteristics determinedby EVRGR. It has not been cleared or approved by the Foodand Drug Administration.PATIENT WAS FASTINGPERFORMED BY: [email or web address] [address] [id number] BY: [facility] Hdizbx3975 [facility] [id number] Erythrocyte distribution width (RBC) [Ratio] 13.0 % Normal 11.6-15.4 [facility] Internal Medicine Work Phone: Comment on above: Test(s) 783522-IGF-D ; 650137-NSW-N; 390794-NLF-A; 704504-Yxdlqgaxbnoiw; 547550-Epbmioxufgc, Total; 041816-DXK-A (Total);751925-Fadoj LDL-P; 754972-QKD Size; 428471-PF-VX Scorewas developed and its performance characteristics determinedby EVRGR. It has not been cleared or approved by the Foodand Drug Administration.PATIENT WAS FASTINGPERFORMED BY: [email or web address] [address] [id number] BY: MD Lingo6370 [facility] [id number] Hematocrit (Bld) [Volume fraction] 41.7 % Normal 37.5-51.0 [facility] Work Phone: Comment on above: Test(s) 910705-ZOY-K ; 349326-HCO-U; 699491-SJN-B; 203944-Ijlhdalaannne; 538366-Qzemkvkwkfb, Total; 913025-EFL-P (Total);118369-Arcdl LDL-P; 912310-KNZ Size; 361616-MT-MS Scorewas developed and its performance characteristics determinedby EVRGR. It has not been cleared or approved by the Foodand Drug Administration.PATIENT WAS FASTINGPERFORMED BY: [email or web address] [address] [id number] BY: [employer]70 [facility] [id number] Hemoglobin (Bld) [Mass/Vol] 14.1 g/dL Normal 13.0-17.7 [facility] Work Phone: Comment on above: Test(s) 114061-LMP-G ; 218391-HIE-C; 173438-TXJ-H; 503948-Ndnisdlqhmlnq; 950502-Faavdthjifa, Total; 797914-THN-T (Total);842599-Wfpqz LDL-P; 394367-LQR Size; 372423-CR-OE Scorewas developed and its performance characteristics determinedby EVRGR. It has not been cleared or approved by the Foodand Drug Administration.PATIENT WAS FASTINGPERFORMED BY: [email or web address] [address] [id number] BY: [employer]6370 [facility] [id number] Immature granulocytes (Bld) [#/Vol] 0.0 {x10E3/uL} Normal 0.0-0.1 [facility] Work Phone: Comment on above: Test(s) 903942-OMB-I ; 748088-NUP-Z; 571557-PNL-K; 802889-Xypveesybfmsr; 657814-Ekkgdfizatg, Total; 686034-QIY-P (Total);185865-Pkupd LDL-P; 362358-HGK Size; 621833-LW-FD Scorewas developed and its performance characteristics determinedby EVRGR. It has not been cleared or approved by the Foodand Drug Administration.PATIENT WAS FASTINGPERFORMED BY: EVRGR [address] [id number] BY: EVRGR Pckmbx4762 [facility] [id number] Immature granulocytes (Bld) [#/Vol] 0.0 10*3/uL Normal 0.0-0.1 [facility]; [facility] Work Phone: Immature granulocytes/100 WBC (Bld) 0 % Normal [facility] Work Phone: Comment on above: Test(s) 268797-RJP-E ; 225088-JAD-W; 863701-ABW-X; 396237-Xputadujvnfai; 453941-Vkvxtayewbm, Total; 995241-MUX-J (Total);091044-Dzxbm LDL-P; 161733-CQI Size; 841917-YZ-NO Scorewas developed and its performance characteristics determinedby EVRGR. It has not been cleared or approved by the Foodi-Human [employer] Drug Administration.PATIENT WAS FASTINGPERFORMED BY: EVRGR [address] [id number] BY: EVRGR Zfklgf0631 [facility] [id number] Lymphocytes (Bld) [#/Vol] 1.9 {x10E3/uL} Normal 0.7-3.1 [facility] Work Phone: Comment on above: Test(s) 813144-RMS-N ; 232126-UOL-N; 906570-JYN-X; 989505-Rgqsmcubbzkst; 981239-Ycarcxpwvzf, Total; 712292-ASU-W (Total);156467-Tinxr LDL-P; 585151-XOP Size; 256407-OQ-XW Scorewas developed and its performance characteristics determinedby EVRGR. It has not been cleared or approved by the Foodand Drug Administration.PATIENT WAS FASTINGPERFORMED BY: [email or web address] [address] [id number] BY: RawporterAstra Health CenterEqntle1802 [facility] [id number] Lymphocytes (Bld) [#/Vol] 1.9 10*3/uL Normal 0.7-3.1 [facility]; [facility] Work Phone: Lymphocytes/100 WBC (Bld) 23 % Normal [facility] Work Phone: Comment on above: Test(s) 507603-HNL-N ; 552878-UBZ-H; 845338-GYC-L; 718495-Kunzkutybwrhg; 284714-Pszmayvruuc, Total; 316530-UIL-O (Total);378841-Gvvgs LDL-P; 771310-GAC Size; 893642-LX-IV Scorewas developed and its performance characteristics determinedby EVRGR. It has not been cleared or approved by the [place] Drug Administration.PATIENT WAS FASTINGPERFORMED BY: [email or web address] [address] [id number] BY: [employer]70 [facility] [id number] MCH (RBC) [Entitic mass] 30.9 pg Normal 26.6-33.0 [facility] Internal Medicine Work Phone: Comment on above: Test(s) 088167-OKB-R ; 628359-XVC-X; 433828-AKQ-Q; 026689-Uykhznuheawkv; 573267-Svzworzlmjv, Total; 527560-ERI-H (Total);207197-Omjvl LDL-P; 774338-RGU Size; 246790-SF-BU Scorewas developed and its performance characteristics determinedby EVRGR. It has not been cleared or approved by the Foodand Drug Administration.PATIENT WAS FASTINGPERFORMED BY: [email or web address] [address] [id number] BY: [facility] Mjcehy4957 [facility] [id number] MCHC (RBC) [Mass/Vol] 33.8 g/dL Normal 31.5-35.7 [facility] Internal Medicine Work Phone: Comment on above: Test(s) 805176-KGU-U ; 709568-GRU-J; 906572-TSW-K; 964945-Cryswfkoqeckg; 592036-Hnxcnmibevk, Total; 873873-RMG-C (Total);150583-Wgrof LDL-P; 943844-LHF Size; 919916-QJ-HG Scorewas developed and its performance characteristics determinedby EVRGR. It has not been cleared or approved by the Foodand Drug Administration.PATIENT WAS FASTINGPERFORMED BY: [employer] [facility] [id number] BY: [employer]70 [facility] [id number] MCV (RBC) [Entitic vol] 91 fL Normal 79-97 [facility] Internal Medicine Work Phone: Comment on above: Test(s) 004424-RNE-V ; 080916-DQZ-C; 848475-AOK-O; 562739-Caeosqxcgykiw; 672714-Bknwljwfrbd, Total; 816407-VRC-X (Total);546046-Wslub LDL-P; 072997-MCT Size; 106421-PW-RE Scorewas developed and its performance characteristics determinedby EVRGR. It has not been cleared or approved by the Foodand Drug Administration.PATIENT WAS FASTINGPERFORMED BY: [employer] [place] [id number] BY: MD Lingo6370 [facility] [id number] Monocytes (Bld) [#/Vol] 0.5 {x10E3/uL} Normal 0.1-0.9 [facility] Internal Medicine Work Phone: Comment on above: Test(s) 987911-GAT-H ; 615982-NZF-I; 317793-ZLA-O; 639265-Aemumobhkktkc; 755835-Wrgrzhaidgh, Total; 202868-NFN-L (Total);491504-Fmurd LDL-P; 442395-IEH Size; 516109-CF-HK Scorewas developed and its performance characteristics determinedby EVRGR. It has not been cleared or approved by the Foodand Drug Administration.PATIENT WAS FASTINGPERFORMED BY: Rawporter[address] [id number] BY: RawporterAstra Health CenterVyvioj6909 [facility] [id number] Monocytes (Bld) [#/Vol] 0.5 10*3/uL Normal 0.1-0.9 [facility]; [facility] Work Phone: Monocytes/100 WBC (Bld) 7 % Normal [facility] Work Phone: Comment on above: Test(s) 178271-NPE-Y ; 622395-LVC-J; 054289-KAW-C; 221413-Xinnsgudrlejk; 036852-Vvpffbriujo, Total; 022149-IYS-B (Total);701210-Cfidv LDL-P; 828104-PXZ Size; 170799-GD-CZ Scorewas developed and its performance characteristics determinedby EVRGR. It has not been cleared or approved by the Foodand Drug Administration.PATIENT WAS FASTINGPERFORMED BY: [email or web address] [address] [id number] BY: RawporterAstra Health CenterEzakht0573 [facility] [id number] Neutrophils (Bld) [#/Vol] 5.5 {x10E3/uL} Normal 1.4-7.0 [facility] Internal Medicine Work Phone: Comment on above: Test(s) 323046-YOW-U ; 069943-GKJ-B; 405217-EFO-N; 502621-Vnwktgntwfqji; 101815-Ndimfscffnh, Total; 986672-IJK-B (Total);460339-Thhdw LDL-P; 457296-RXO Size; 226728-RO-AO Scorewas developed and its performance characteristics determinedby EVRGR. It has not been cleared or approved by the Foodand Drug Administration.PATIENT WAS FASTINGPERFORMED BY: [facility] [address] [place] [id number] BY: RawporterAstra Health CenterFleejv2110 [facility] [id number] Neutrophils (Bld) [#/Vol] 5.5 10*3/uL Normal 1.4-7.0 [facility]; [facility] Work Phone: Neutrophils/100 WBC (Bld) 68 % Normal [facility] Work Phone: Comment on above: Test(s) 816413-VZJ-O ; 051363-HJO-P; 328690-BWG-P; 382302-Fguhlmdnvjrrl; 256577-Tkvkxaaavkb, Total; 134053-ZBW-F (Total);780232-Ftcxd LDL-P; 213078-LXY Size; 759555-KO-VR Scorewas developed and its performance characteristics determinedby EVRGR. It has not been cleared or approved by the Foodand Drug Administration.PATIENT WAS FASTINGPERFORMED BY: [employer] [id number] BY: [employer]6370 [facility] [id number] Platelets (Bld) [#/Vol] 204 {x10E3/uL} Normal 150-450 [facility] Work Phone: Comment on above: Test(s) 410725-AAE-W ; 205198-PXC-M; 226334-CTY-S; 921713-Hqptkbdiqgncg; 691498-Bmjcxftxgpn, Total; 119096-IDD-W (Total);199962-Mqzqv LDL-P; 282526-AOP Size; 252416-GV-YP Scorewas developed and its performance characteristics determinedby EVRGR. It has not been cleared or approved by the Foodand Drug Administration.PATIENT WAS FASTINGPERFORMED BY: EVRGR [address] [id number] BY: RawporterAstra Health CenterAmuaqd0940 [facility] [id number] Platelets (Bld) [#/Vol] 204 10*3/uL Normal 150-450 [facility]; [facility] Work Phone: RBC (Bld) [#/Vol] 4.57 {x10E6/uL} Normal 4.14-5.80 [facility] Internal Medicine Work Phone: Comment on above: Test(s) 307667-ZDU-O ; 566320-VBO-S; 872341-SNS-K; 176284-Ngkcrdabrleli; 074199-Zztsmscjhcr, Total; 622864-ZOM-Q (Total);951755-Cjlpe LDL-P; 387944-BEM Size; 286983-VD-MT Scorewas developed and its performance characteristics determinedby EVRGR. It has not been cleared or approved by the Foodand Drug Administration.PATIENT WAS FASTINGPERFORMED BY: [employer] [place] [id number] BY: [email or web address] [facility] [id number] RBC (Bld) [#/Vol] 4.57 10*6/uL Normal 4.14-5.80 [facility] Internal [facility]; [facility] Work Phone: WBC (Bld) [#/Vol] 8.0 {x10E3/uL} Normal 3.4-10.8 [facility] Internal Medicine Work Phone: Comment on above: Test(s) 219856-EGD-J ; 221647-RNI-N; 446098-XMA-Z; 655449-Prutlplxolzaa; 913002-Zrxqnurvlqm, Total; 074520-AVK-V (Total);611704-Jwzxq LDL-P; 126133-AIE Size; 070117-GO-YQ Scorewas developed and its performance characteristics determinedby EVRGR. It has not been cleared or approved by the Foodand Drug Administration.PATIENT WAS FASTINGPERFORMED BY: [employer] [place] [id number] BY: MD Lingo6370 [employer] [facility] HospitalResilient Network SystemsUNC Health Blue Ridge [id number] WBC (Bld) [#/Vol] 8.0 10*3/uL Normal 3.4-10.8 [facility] Internal [facility]; [facility] Work Phone: METABOLIC PANEL, COMPREHENSI VE ([id number])Ordered By: Client Advisor on 02-20-2020 Albumin [Mass/Vol] 4.4 g/dL Normal 3.6-4.6 [facility] Internal Medicine Work Phone: Comment on above: Test(s) 091838-NCF-C ; 390316-BOK-D; 492100-OFA-W; 465029-Whtqyywlcylro; 049992-Rpqxljumhex, Total; 430610-FHY-H (Total);720580-Viqvq LDL-P; 450815-BOA Size; 152234-KR-UM Scorewas developed and its performance characteristics determinedby EVRGR. It has not been cleared or approved by the Foodand Drug Administration.PATIENT WAS FASTINGPERFORMED BY: [employer] [place] [address] [id number] BY: [employer] [place] [id number] Albumin/Globulin [Mass ratio] 1.9 {ratio} Normal 1.2-2.2 [facility] Work Phone: Comment on above: Test(s) 800521-NCG-P ; 853092-GBY-I; 734188-TNP-M; 832970-Ppkszhdicxmyx; 122857-Toykgptqlfa, Total; 342536-KHK-X (Total);071150-Pnxwf LDL-P; 328981-XRF Size; 630820-BZ-DY Scorewas developed and its performance characteristics determinedby EVRGR. It has not been cleared or approved by the Foodand Drug Administration.PATIENT WAS FASTINGPERFORMED BY: [employer] [place] [id number] BY: [employer]70 [employer] [place] [id number] ALP [Catalytic activity/Vol] 127 [iU]/L Abnormal 39-117 [facility] Work Phone: Comment on above: Test(s) 682832-AAT-S ; 565247-DHC-N; 034267-OGS-E; 694506-Rydpzspjhpbau; 790243-Wkxqympoztp, Total; 224160-SMR-N (Total);096502-Ykcfo LDL-P; 152448-MML Size; 714832-VL-TE Scorewas developed and its performance characteristics determinedby EVRGR. It has not been cleared or approved by the Foodand Drug Administration.PATIENT WAS FASTINGPERFORMED BY: Rawporter[address] [id number] BY: eRALOS370 [facility] [id number] ALP [Catalytic activity/Vol] 127 U/L Abnormal 39-117 [facility]; [facility] Work Phone: ALT [Catalytic activity/Vol] 9 [iU]/L Normal 0-44 [facility] Work Phone: Comment on above: Test(s) 619530-EYR-W ; 953778-NAL-T; 928533-OUV-A; 306385-Omclzfgjgyexn; 797375-Alssabursho, Total; 702472-GRZ-E (Total);940480-Ffwxg LDL-P; 773704-VDU Size; 545474-HU-VZ Scorewas developed and its performance characteristics determinedby EVRGR. It has not been cleared or approved by the Foodand Drug Administration.PATIENT WAS FASTINGPERFORMED BY: Rawporter[address] [id number] BY: RawporterNew Sunrise Regional Treatment CenterRxttyv2056 [facility] [id number] ALT [Catalytic activity/Vol] 9 U/L Normal 0-44 [facility]; [facility] Work Phone: AST [Catalytic activity/Vol] 21 [iU]/L Normal 0-40 [facility] Work Phone: Comment on above: Test(s) 659626-IOV-Z ; 055714-HJT-B; 321136-ERV-F; 680257-Apjydakobgqco; 364721-Qwidpyuynum, Total; 141281-IDJ-O (Total);145582-Jkaum LDL-P; 703302-JKQ Size; 476032-DN-NF Scorewas developed and its performance characteristics determinedby EVRGR. It has not been cleared or approved by the Foodand Drug Administration.PATIENT WAS FASTINGPERFORMED BY: [email or web address] [address] [id number] BY: RawporterAstra Health CenterZrnevi6428 [facility] [id number] AST [Catalytic activity/Vol] 21 U/L Normal 0-40 [facility]; [facility] Work Phone: Bilirubin [Mass/Vol] 1.3 mg/dL Abnormal 0.0-1.2 [facility] Work Phone: Comment on above: Test(s) 557962-HSP-G ; 312071-YPK-G; 885449-UMH-H; 423150-Puwyxgvbegqww; 259964-Tebjgrlxnbx, Total; 586688-CZO-O (Total);020713-Fevjg LDL-P; 159544-XUC Size; 979737-UX-PK Scorewas developed and its performance characteristics determinedby EVRGR. It has not been cleared or approved by the Foodand Drug Administration.PATIENT WAS FASTINGPERFORMED BY: [email or web address] [address] [id number] BY: EVRGR Gzyxjj4061 [facility] [id number] Calcium [Mass/Vol] 9.0 mg/dL Normal 8.6-10.2 [facility] Internal Medicine Work Phone: Comment on above: Test(s) 506052-UPF-C ; 058707-VAU-Y; 036325-UAH-C; 451021-Bgruufdkktxzj; 136499-Rfmkkdecemd, Total; 624418-PPY-K (Total);313262-Wesbm LDL-P; 137437-WCC Size; 364453-JL-OV Scorewas developed and its performance characteristics determinedby EVRGR. It has not been cleared or approved by the Foodand Drug Administration.PATIENT WAS FASTINGPERFORMED BY: [email or web address] [address] [id number] BY: MD Lingo6370 [facility] InstrumentsUNC Health Blue Ridge [id number] Chloride [Moles/Vol] 107 mmol/L Abnormal 96-106 [facility] Internal Medicine Work Phone: Comment on above: Test(s) 464246-MQZ-U ; 236787-GXS-F; 156202-KDA-E; 620039-Vpxofieauivoq; 696743-Nkkpytqdjrm, Total; 382947-PBZ-S (Total);624346-Wgiot LDL-P; 314440-BZH Size; 915658-LA-PC Scorewas developed and its performance characteristics determinedby EVRGR. It has not been cleared or approved by the Foodand Drug Administration.PATIENT WAS FASTINGPERFORMED BY: [employer] [place] [id number] BY: MD Lingo6370 [facility]of[facility] InstrumentsUNC Health Blue Ridge [id number] CO2 [Moles/Vol] 21 mmol/L Normal 20-29 [facility] Internal Medicine Work Phone: Comment on above: Test(s) 946543-DBR-S ; 988125-XRK-U; 955046-HQZ-B; 324866-Fgnsdypiyefbu; 376976-Ximnbfdtajf, Total; 999416-UIQ-A (Total);888415-Yqgsj LDL-P; 064742-CNB Size; 193753-OA-KH Scorewas developed and its performance characteristics determinedby EVRGR. It has not been cleared or approved by the Foodand Drug Administration.PATIENT WAS FASTINGPERFORMED BY: [email or web address] [address] [id number] BY: MD Lingo6370 [facility] [id number] Creatinine [Mass/Vol] 1.12 mg/dL Normal 0.76-1.27 [facility] Internal Medicine Work Phone: Comment on above: Test(s) 764312-QVP-U ; 512090-UDT-Q; 067658-EII-J; 745391-Wusyocmewtyey; 175302-Cyiiixwzgav, Total; 526830-JGQ-U (Total);811941-Pgkhb LDL-P; 587673-NGU Size; 203246-NZ-KA Scorewas developed and its performance characteristics determinedby EVRGR. It has not been cleared or approved by the Foodand Drug Administration.PATIENT WAS FASTINGPERFORMED BY: EVRGR [address] [id number] BY: RawporterMichele [place] 1092870 [facility] [id number] GFR/1.73 sq M predicted among blacks CKD-EPI (S/P/Bld) [Vol rate/Area] 70 mL/min/1.73 Normal [facility] Work Phone: Comment on above: Test(s) 547435-GBC-K ; 570558-DOE-Q; 900777-QVB-U; 235315-Eetjbutzrizwa; 757332-Tbjcvtigesa, Total; 858597-XDL-N (Total);503217-Ihjgs LDL-P; 916752-HGX Size; 087127-ZK-LC Scorewas developed and its performance characteristics determinedby EVRGR. It has not been cleared or approved by the Foodand Drug Administration.PATIENT WAS FASTINGPERFORMED BY: EVRGR [address] [id number] BY: RawporterAstra Health CenterFmrsxw5530 [facility] [id number] GFR/1.73 sq M predicted among non-blacks CKD-EPI (S/P/Bld) [Vol rate/Area] 61 mL/min/1.73 Normal [facility] Work Phone: Comment on above: Test(s) 416304-LQF-U ; 199857-PVQ-C; 307622-POU-M; 726812-Vpkybfdxwfzwf; 939410-Hibqujcrinb, Total; 119721-IOD-J (Total);928518-Mtdet LDL-P; 485201-TKO Size; 976563-IE-YR Scorewas developed and its performance characteristics determinedby EVRGR. It has not been cleared or approved by the Foodand Drug Administration.PATIENT WAS FASTINGPERFORMED BY: [email or web address] [address] [id number] BY: RawporterAstra Health CenterWvtfpf1543 [facility] [id number] Globulin (S) [Mass/Vol] 2.3 g/dL Normal 1.5-4.5 [facility] Internal Medicine Work Phone: Comment on above: Test(s) 070398-XXB-K ; 872245-UEG-C; 151888-PUV-P; 256154-Igickwjesrfmk; 986597-Jguiocsslqu, Total; 718163-SVT-P (Total);143110-Mvluw LDL-P; 309236-KOM Size; 089876-AU-KK Scorewas developed and its performance characteristics determinedby EVRGR. It has not been cleared or approved by the Foodand Drug Administration.PATIENT WAS FASTINGPERFORMED BY: [email or web address] [address] [id number] BY: MD Lingo6370 [facility] [id number] Glucose [Mass/Vol] 115 mg/dL Abnormal 65-99 [facility] Internal Medicine Work Phone: Comment on above: Test(s) 438956-SNY-R ; 154957-BKS-U; 202302-ZPD-I; 628563-Cjgczchubkvzw; 363132-Jtmozjiowao, Total; 590048-AQJ-T (Total);791198-Jpdyl LDL-P; 647238-FZR Size; 408885-DF-HB Scorewas developed and its performance characteristics determinedby EVRGR. It has not been cleared or approved by the Foodand Drug Administration.PATIENT WAS FASTINGPERFORMED BY: [email or web address] [address] [id number] BY: Yooli Vugtqe7974 [facility] [id number] Potassium [Moles/Vol] 4.3 mmol/L Normal 3.5-5.2 [facility] Internal Medicine Work Phone: Comment on above: Test(s) 074026-PCV-Q ; 803434-YII-D; 086309-PDI-M; 031625-Qlqmcudcvvkfz; 977713-Slbouqiuvcn, Total; 206715-DOX-B (Total);871599-Glgja LDL-P; 401534-JEL Size; 708559-ZR-VC Scorewas developed and its performance characteristics determinedby EVRGR. It has not been cleared or approved by the Foodand Drug Administration.PATIENT WAS FASTINGPERFORMED BY: [email or web address] [address] [id number] BY: [facility] Aeazzy2103 [facility] [id number] Protein [Mass/Vol] 6.7 g/dL Normal 6.0-8.5 [facility] Internal Medicine Work Phone: Comment on above: Test(s) 186944-WOW-W ; 890336-AQL-F; 340726-BJO-Z; 373114-Wdlaphqyqdygf; 843662-Buyvayndohr, Total; 271551-NDB-C (Total);284226-Jpool LDL-P; 813103-MAR Size; 075258-SJ-MT Scorewas developed and its performance characteristics determinedby EVRGR. It has not been cleared or approved by the Foodand Drug Administration.PATIENT WAS FASTINGPERFORMED BY: [email or web address] [address] [id number] BY: [facility] Qpavqy7495 [facility] [id number] Sodium [Moles/Vol] 143 mmol/L Normal 134-144 [facility] Internal Medicine Work Phone: Comment on above: Test(s) 660015-RPU-G ; 213042-EFZ-E; 322279-HOS-R; 628683-Ltibvptowbloi; 819028-Ymmyoqpadnz, Total; 133086-BWT-L (Total);221989-Wlovk LDL-P; 304973-CZU Size; 449686-QZ-RS Scorewas developed and its performance characteristics determinedby EVRGR. It has not been cleared or approved by the Foodand Drug Administration.PATIENT WAS FASTINGPERFORMED BY: [email or web address] [address] [id number] BY: MD Lingo6370 [facility] [id number] Urea nitrogen [Mass/Vol] 21 mg/dL Normal 05-22 [facility] Work Phone: Comment on above: Test(s) 594995-SUG-J ; 509233-VBP-R; 526778-XVB-O; 475791-Bfhmjwkvlxkmu; 022546-Lqpakwktawb, Total; 811025-WZP-L (Total);525235-Dwfmi LDL-P; 353967-SEB Size; 837128-QR-NE Scorewas developed and its performance characteristics determinedby EVRGR. It has not been cleared or approved by the Foodand Drug Administration.PATIENT WAS FASTINGPERFORMED BY: [employer] [facility] [place] [id number] BY: MD Lingo6370 [facility] [id number] Urea nitrogen/Creatinine [Mass ratio] 19 mg/mg Normal 07-19 [facility] Work Phone: Comment on above: Test(s) 992679-SLS-Q ; 472344-OOA-S; 990371-QHL-R; 091971-Wzdoverrfszkq; 201747-Yygjszdlnun, Total; 642133-DMV-N (Total);088386-Kxcpa LDL-P; 786043-CAK Size; 492750-LS-NI Scorewas developed and its performance characteristics determinedby EVRGR. It has not been cleared or approved by the Foodand Drug Administration.PATIENT WAS FASTINGPERFORMED BY: [email or web address] [address] [id number] BY: MD Lingo6370 [facility] [id number] MICROALBUMINOrdered By: [employer] Lead on 02-20-2020 Albumin DL <= 20 mg/L (U) [Mass/Vol] 43.4 ug/mL Normal [facility] Work Phone: Comment on above: Test(s) 460730-OQM-S ; 912550-VKJ-D; 767748-IJV-G; 214840-Krmsfxgfftwik; 631128-Njyhcrmivby, Total; 354014-ULB-D (Total);234070-Mfvdq LDL-P; 051411-VAX Size; 996779-IX-HN Scorewas developed and its performance characteristics determinedby EVRGR. It has not been cleared or approved by the Foodand Drug Administration.PATIENT WAS FASTINGPERFORMED BY: [email or web address] [address] [id number] BY: [facility] [address] [place] [address] [id number] Albumin/Creatinine (U) [Mass ratio] 14 {mg/g_creat} Normal 0-29 [facility] Work Phone: Comment on above: Normal: 0 - 29 Moder ately increased: 30 - 300 Severely increased: >300 Please note reference interval change Test(s) 476653-CSX-K ; 071404-IGF-S; 658795-IZH-H; 676205-Myhycndfhffej; 839688-Nnetlaoaqri, Total; 651241-HPV-W (Total);645345-Gqkwy LDL-P; 202524-SHC Size; 339494-XK-TK Scorewas developed and its performance characteristics determinedby EVRGR. It has not been cleared or approved by the Foodi-Human Patients Drug Administration.PATIENT WAS FASTINGPERFORMED BY: [email or web address] [address] [id number] BY: [employer]70 [facility] [id number] Creatinine (U) [Mass/Vol] 316.8 mg/dL Normal [facility] Work Phone: Comment on above: Test(s) 482470-FFV-Y ; 428637-SYO-N; 224606-ZKE-C; 480332-Lanvwegyzxtpv; 494043-Qigbncbaohj, Total; 610469-JZZ-Q (Total);824965-Ptrhi LDL-P; 481003-ZZQ Size; 080551-NO-XT Scorewas developed and its performance characteristics determinedby EVRGR. It has not been cleared or approved by the Foodand Drug Administration.PATIENT WAS FASTINGPERFORMED BY: [email or web address] [place] [address] [facility] [id number] BY: MD Lingo6370 [address] 5211game[facility] [id number] NMR Profile (74552)Ordered B y: Client Advisor on 02-20-2020 Cholesterol [Mass/Vol] 108 mg/dL Normal 100-199 [facility] Work Phone: Comment on above: Test(s) 076542-FWN-N ; 765627-JJT-G; 605385-NGM-A; 068658-Fdmupjzpuqdab; 096491-Vomckvpmhqw, Total; 743800-FAM-G (Total);432511-Qwsuv LDL-P; 612186-CNN Size; 839120-TU-TY Scorewas developed and its performance characteristics determinedby EVRGR. It has not been cleared or approved by the Foodand Drug Administration.PATIENT WAS FASTINGPERFORMED BY: [employer] [facility] [place] [id number] BY: [employer]70 [facility] [id number] Lipoprotein.alpha [Moles/Vol] 25.4 umol/L Abnormal [facility] Work Phone: Comment on above: Test(s) 146077-HHJ-D ; 676569-DII-S; 360829-NHC-S; 254853-Fgfgscrewwvfa; 633278-Urkvmbanbkq, Total; 450437-MOR-P (Total);719267-Zsuqx LDL-P; 662108-OQQ Size; 502906-XA-QW Scorewas developed and its performance characteristics determinedby EVRGR. It has not been cleared or approved by the Foodand Drug Administration.PATIENT WAS FASTINGPERFORMED BY: [email or web address] [address] [id number] BY: MD Lingo6370 [facility] [id number] Lipoprotein.beta.subp article [Entitic length] 20.6 nm Normal [facility] Work Phone: Comment on above: INTERPRETATIVE INFORMATION PARTICLE CONCENTRATION AND SIZE <--Lower CVD Risk Higher CVD Risk--> LDL AND HDL PARTICLES Percentile in Reference Population HDL-P (total) High 75th 50th 25th Low >34.9 34.9 30.5 26.7 <26.7 . Small LDL-P Low 25th 50th 75th High <117 117 527 839 >839 . LDL Size <-Large (Pattern A)-> <-Small (Pattern B)-> 23.0 20.6 20.5 19.0 Small LDL-P and LDL Size are associated with CVD risk, but not afterLDL-P is taken into account. Test(s) 290387-QML-G ; 324805-GRD-G; 070226-GNB-M; 457049-Ttgqcrxejydah; 448902-Edvhmfmstmk, Total; 121502-AVM-S (Total);123422-Sjevp LDL-P; 438235-NEQ Size; 638222-EJ-BR Scorewas developed and its performance characteristics determinedby EVRGR. It has not been cleared or approved by the Foodand Drug Administration.PATIENT WAS FASTINGPERFORMED BY: [employer] [address] [id number] BY: LabWellikoAstra Health CenterHbjrue3918 [facility] [id number] Lipoprotein.beta.subp article [Moles/Vol] 734 nmol/L Normal Comprehensiv e Internal Medicine Work Phone: Comment on above: Low < 1000 Moderate 1000 - 1299 Borderline-High 1300 - 1599 High 1600 - 2000 Very High > 2000 Test(s) 576037-JCZ-R ; 164171-JOI-N; 720030-FSD-J; 458471-Vdhtcatlyzgoq; 255250-Rzxfbcbdmtr, Total; 525551-JQB-J (Total);547319-Wbqqu LDL-P; 969258-IWX Size; 766928-KN-WS Scorewas developed and its performance characteristics determinedby EVRGR. It has not been cleared or approved by the Foodand Drug Administration.PATIENT WAS FASTINGPERFORMED BY: [email or web address] [address] [id number] BY: [employer]70 [address] BixUNC [facility] Ridge [id number] Lipoprotein.beta.subp article.small [Moles/Vol] 289 nmol/L Normal [facility] Work Phone: Comment on above: Test(s) 229377-ATU-T ; 483384-LJJ-T; 749288-AMO-P; 759678-Lvqigkjnhzxww; 290062-Kfafpjtteba, Total; 455265-DIE-T (Total);985368-Mfngj LDL-P; 456260-STX Size; 461084-FG-AN Scorewas developed and its performance characteristics determinedby EVRGR. It has not been cleared or approved by the Foodand Drug Administration.PATIENT WAS FASTINGPERFORMED BY: [email or web address] [address] [id number] BY: [employer]70 [address] BixUNC Health Blue Ridge [id number] Triglyceride [Mass/Vol] 62 mg/dL Normal 0-149 [facility] Work Phone: Comment on above: Test(s) 688775-XQO-U ; 259426-RDU-I; 274793-YSP-V; 903451-Pzjdneydftxuw; 874550-Dnkfrpocbqc, Total; 973883-VVQ-L (Total);664589-Bdgtt LDL-P; 754589-VXF Size; 917729-DJ-DQ Scorewas developed and its performance characteristics determinedby EVRGR. It has not been cleared or approved by the Foodand Drug Administration.PATIENT WAS FASTINGPERFORMED BY: [email or web address] [address] [id number] BY: [employer]70 [employer] BixUNC Health Blue Ridge [id number] NMR Profile (53006) 33 mg/dL Abnormal [facility] Internal Medicine Work Phone: Comment on above: Test(s) 736840-GJT-I ; 877663-BDW-L; 436663-NGK-J; 972388-Jnjzymghrqmoj; 566892-Xwdxxdpflsu, Total; 827257-UHS-E (Total);172269-Kegbm LDL-P; 569747-HWD Size; 557846-IW-YY Scorewas developed and its performance characteristics determinedby EVRGR. It has not been cleared or approved by the Foodand Drug Administration.PATIENT WAS FASTINGPERFORMED BY: [employer] [place] [id number] BY: [employer]70 [facility] [id number] NMR Profile (40301) 63 mg/dL Normal 0-99 [facility] Internal Medicine Work Phone: Comment on above: . Optimal < 100 Abov e optimal 100 - 129 Borderline 130 - 159 High 160 - 189 Very high > 189 .LDL-C is inaccurate if patient is non-fasting. Test(s) 716066-KPD-C ; 406851-AOS-F; 408911-IAO-V; 983445-Evchovjkepffy; 285445-Olfsnuviwvt, Total; 901569-LXG-Q (Total);178335-Xcrgq LDL-P; 314618-KXD Size; 632413-MU-FN Scorewas developed and its performance characteristics determinedby EVRGR. It has not been cleared or approved by the Foodand Drug Administration.PATIENT WAS FASTINGPERFORMED BY: [email or web address] [address] [id number] BY: Yooli Tklydr9221 [facility] [id number] NMR Profile (73821) 62 mg/dL Normal 0-149 [facility] Centerens[facility]; [facility] Work Phone: NMR Profile (06540) 108 mg/dL Normal 100-199 [facility] Internal [facility]; [facility] Work Phone: TSH (THYROID STIMULATING HOR FAWN) (77491)Ordered By: Client Advisor on 02-20-2020 TSH Qn 2.000 {uIU/mL} Normal 0.450-4.50 0 [facility] Work Phone: Comment on above: Test(s) 001768-UZJ-V ; 658991-BUF-B; 774568-KIN-M; 930311-Sywarsblxtvcc; 556681-Ecwsrswvdaj, Total; 025554-OZI-V (Total);067483-Zqwnq LDL-P; 579134-CRG Size; 951516-PU-LA Scorewas developed and its performance characteristics determinedby EVRGR. It has not been cleared or approved by the Foodand Drug Administration.PATIENT WAS FASTINGPERFORMED BY: [employer] [id number] BY: RawporterAstra Health CenterPvwabh6254 [facility] [id number] Blood Glucose , Office (5096 2)Ordered By: Marilynn Chanel on 08-29-2019 Glucose Glucometer (BldC) [Moles/Vol] 120 1 Normal [facility] Work Phone: HgA1C , Office (79150)Ordere d By: Marilynn Chanel on 08-29-2019 HbA1c (Bld) [Mass fraction] 6.0 % Normal 4.6 - 7.1 [facility] Work Phone: CBC W/AUTO DIFF WBC (33351)O rdered By: Client Advisor on 03-22-2018 Basophils #/vol (Bld) 0.0 {x10E3/uL} Normal 0.0-0.2 [facility] Work Phone: Comment on above: PATIENT WAS FASTINGP ERFORMED BY: RawporterAstra Health CenterJssiga5040 [facility] [id number] Basophils (Bld) [#/Vol] 0.0 10*3/uL Normal 0.0-0.2 [facility]; [facility] Work Phone: Basophils Auto #/vol (Bld) 0.0 {x10E3/uL} Normal 0.0-0.2 [facility] Work Phone: Basophils/100 WBC (Bld) 0 % Normal [facility] Work Phone: Comment on above: PATIENT WAS FASTINGP ERFORMED BY: RawporterAstra Health CenterNuazjk7531 [facility] [id number] Basophils/100 WBC Auto (Bld) 0 % Normal [facility] Work Phone: Eosinophils #/vol (Bld) 0.1 {x10E3/uL} Normal 0.0-0.4 [facility] Work Phone: Comment on above: PATIENT WAS FASTINGP ERFORMED BY: CIERRA RawporterNew Sunrise Regional Treatment CenterUvfcfl1890 [facility] [id number] Eosinophils (Bld) [#/Vol] 0.1 10*3/uL Normal 0.0-0.4 [facility]; [facility] Work Phone: Eosinophils Auto #/vol (Bld) 0.1 {x10E3/uL} Normal 0.0-0.4 [facility] Work Phone: Eosinophils/100 WBC (Bld) 2 % Normal [facility] Work Phone: Comment on above: PATIENT WAS FASTINGP ERFORMED BY: RawporterAstra Health CenterJmadvj6998 [facility] [id number] Eosinophils/100 WBC Auto (Bld) 2 % Normal [facility] Work Phone: Erythrocyte distribution width Auto Ratio (RBC) 13.9 % Normal 12.3-15.4 [facility] Work Phone: Erythrocyte distribution width Ratio (RBC) 13.9 % Normal 12.3-15.4 [facility] Work Phone: Comment on above: PATIENT WAS FASTINGP ERFORMED BY: RawporterAstra Health CenterVrywjw3603 [facility] [id number] Hematocrit Auto Volume Fraction (Bld) 38.9 % Normal 37.5-51.0 Comprehens shawn Internal Medicine Work Phone: Hematocrit Volume Fraction (Bld) 38.9 % Normal 37.5-51.0 [facility] Work Phone: Comment on above: PATIENT WAS FASTINGP ERFORMED BY: CIERRA TejaHedrick Medical Center Ozqwnd0173 [facility] [id number] Hemoglobin mass conc (Bld) 12.8 g/dL Abnormal 13.0-17.7 [facility] Work Phone: Comment on above: PATIENT WAS FASTINGP ERFORMED BY: [address] [id number] Immature granulocytes #/vol (Bld) 0.0 {x10E3/uL} Normal 0.0-0.1 [facility] Work Phone: Comment on above: PATIENT WAS FASTINGP ERFORMED BY: CIERRA [address] [id number] Immature granulocytes (Bld) [#/Vol] 0.0 10*3/uL Normal 0.0-0.1 [facility]; [facility] Work Phone: Immature granulocytes/100 WBC (Bld) 0 % Normal [facility] Work Phone: Comment on above: PATIENT WAS FASTINGP ERFORMED BY: Teja[address] [id number] Lymphocytes #/vol (Bld) 1.4 {x10E3/uL} Normal 0.7-3.1 [facility] Work Phone: Comment on above: PATIENT WAS FASTINGP ERFORMED BY: [address] [id number] Lymphocytes (Bld) [#/Vol] 1.4 10*3/uL Normal 0.7-3.1 [facility]; [facility] Work Phone: Lymphocytes Auto #/vol (Bld) 1.4 {x10E3/uL} Normal 0.7-3.1 [facility] Work Phone: Lymphocytes/100 WBC (Bld) 21 % Normal [facility] Work Phone: Comment on above: PATIENT WAS FASTINGP ERFORMED BY: [facility]6370 [facility] [id number] Lymphocytes/100 WBC Auto (Bld) 21 % Normal [facility] Work Phone: MCH Auto Entitic mass (RBC) 30.4 pg Normal 26.6-33.0 [facility] Work Phone: MCH Entitic mass (RBC) 30.4 pg Normal 26.6-33.0 [facility] Work Phone: Comment on above: PATIENT WAS FASTINGP ERFORMED BY: [place] [id number] [facility] [id number] MCHC Auto mass conc (RBC) 32.9 g/dL Normal 31.5-35.7 [facility] Work Phone: MCHC mass conc (RBC) 32.9 g/dL Normal 31.5-35.7 Comp rehcinc[facility] Internal Medicine Work Phone: Comment on above: PATIENT WAS FASTINGP ERFORMED BY: [place] 7228270 [facility] [id number] MCV Auto Entitic volume (RBC) 92 fL Normal 79-97 [facility] Work Phone: MCV Entitic volume (RBC) 92 fL Normal 79-97 [facility] Work Phone: Comment on above: PATIENT WAS FASTINGP ERFORMED BY: [place] 7228270 [facility] [id number] Monocytes #/vol (Bld) 0.5 {x10E3/uL} Normal 0.1-0.9 [facility] Work Phone: Comment on above: PATIENT WAS FASTINGP ERFORMED BY: [place] 7228270 [facility] [id number] Monocytes (Bld) [#/Vol] 0.5 10*3/uL Normal 0.1-0.9 [facility]; [facility] Work Phone: Monocytes Auto #/vol (Bld) 0.5 {x10E3/uL} Normal 0.1-0.9 [facility] Work Phone: Monocytes/100 WBC (Bld) 8 % Normal [facility] Work Phone: Comment on above: PATIENT WAS FASTINGP ERFORMED BY: CIERRA [employer] Budzml9745 [address] [facility] [place] [id number] Monocytes/100 WBC Auto (Bld) 8 % Normal [facility] Work Phone: Morphology Interp Priynak (Bld) Note: Normal [facility] Work Phone: Comment on above: Verified by microsco pic examination. PATIENT WAS FASTINGP ERFORMED BY: CIERRA [employer] Qzuawm9049 [address] [facility] [id number] Neutrophils #/vol (Bld) 4.7 {x10E3/uL} Normal 1.4-7.0 [facility] Work Phone: Comment on above: PATIENT WAS FASTINGP ERFORMED BY: [facility] Qechyg1155 [facility] [id number] Neutrophils (Bld) [#/Vol] 4.7 10*3/uL Normal 1.4-7.0 [facility]; [facility] Work Phone: Neutrophils Auto #/vol (Bld) 4.7 {x10E3/uL} Normal 1.4-7.0 [facility] Work Phone: Neutrophils/100 WBC (Bld) 69 % Normal [facility] Work Phone: Comment on above: PATIENT WAS FASTINGP ERFORMED BY: [facility] Bieoub7690 [facility] [id number] Neutrophils/100 WBC Auto (Bld) 69 % Normal [facility] Work Phone: Platelets #/vol (Bld) 162 {x10E3/uL} Normal 150-379 [facility] Work Phone: Comment on above: PATIENT WAS FASTINGP ERFORMED BY: [facility] Eilnux2232 [address] [facility] [id number] Platelets (Bld) [#/Vol] 162 10*3/uL Normal 150-379 [facility]; [facility] Work Phone: Platelets Auto #/vol (Bld) 162 {x10E3/uL} Normal 150-379 [facility] Work Phone: RBC #/vol (Bld) 4.21 {x10E6/uL} Normal 4.14-5.80 Comp [facility] centerensive [facility] Work Phone: Comment on above: PATIENT WAS FASTINGP ERFORMED BY: CIERRA Ellis6370 [facility] [id number] RBC (Bld) [#/Vol] 4.21 10*6/uL Normal 4.14-5.80 Compr [facility] Internal Medicine; [facility] Work Phone: RBC Auto #/vol (Bld) 4.21 {x10E6/uL} Normal 4.14-5.80 [facility] Work Phone: WBC #/vol (Bld) 6.8 {x10E3/uL} Normal 3.4-10.8 [facility] Internal Medicine Work Phone: Comment on above: PATIENT WAS FASTINGP ERFORMED BY: CIERRA Shieldslin6370 [facility] [id number] WBC (Bld) [#/Vol] 6.8 10*3/uL Normal 3.4-10.8 [facility]; [facility] Work Phone: WBC Auto #/vol (Bld) 6.8 {x10E3/uL} Normal 3.4-10.8 [facility] Internal Medicine Work Phone: LIPID PANEL (86342)Ordered B y: Client Advisor on 03-22-2018 Cholesterol in HDL mass conc 38 mg/dL Abnormal [facility] Work Phone: Comment on above: PATIENT WAS FASTINGP ERFORMED BY: CIERRA Shieldslin6370 [facility] [id number] Cholesterol in LDL mass conc 57 mg/dL Normal 0-99 [facility] Work Phone: Comment on above: PATIENT WAS FASTINGP ERFORMED BY: CB [facility] Pivbfn8141 Khoury Roadblin [place] [id number] Cholesterol in LDL/Cholesterol in HDL mass ratio 1.5 {ratio} Normal 0.0-3.6 [facility] Work Phone: Comment on above: LDL/HDL Ratio Men Wo men 1/2 Avg.Risk 1.0 1.5 Avg.Risk 3.6 3.2 2X Avg.Risk 6.2 5.0 3X Avg.Risk 8.0 6.1 PATIENT WAS FASTINGP ERFORMED BY: [facility] Kdbxkn9593 [address] Roadblin [place] [id number] Cholesterol in VLDL mass conc 10 mg/dL Normal 5-40 [facility] Work Phone: Comment on above: PATIENT WAS FASTINGP ERFORMED BY: [facility] Xdhdap0812 [address] [facility]in [place] [id number] Cholesterol mass conc 105 mg/dL Normal 100-199 [facility] prehensive Internal Medicine Work Phone: Comment on above: PATIENT WAS FASTINGP ERFORMED BY: [facility] Uadjyw9074 [address] [facility] Hospitalblin [place] [id number] Triglyceride mass conc 50 mg/dL Normal 0-149 [facility] Work Phone: Comment on above: PATIENT WAS FASTINGP ERFORMED BY: [facility] Bfeotj8208 [address] [facility]in [place] [id number] METABOLIC PANEL, COMPREHENSI VE (71725)Ordered By: Client Advisor on 03-22-2018 Albumin mass conc 4.0 g/dL Normal 3.5-4.7 Compreh ensive Internal Medicine Work Phone: Comment on above: PATIENT WAS FASTINGP ERFORMED BY: [facility] Lvhaja8818 [address] RoadDublin [place] [id number] Albumin/Globulin mass ratio 1.7 {ratio} Normal 1.2-2.2 [facility] Work Phone: Comment on above: PATIENT WAS FASTINGP ERFORMED BY: [facility] Qdgnne4734 [address]y RoadDublin [place] [id number] ALP [Catalytic activity/Vol] 117 U/L Normal 39-117 [facility]; [facility] Internal Medicine Work Phone: ALP enzyme act/vol 117 [iU]/L Normal 39-117 [facility] Internal Medicine Work Phone: Comment on above: PATIENT WAS FASTINGP ERFORMED BY: CB [facility] Bjasau3485 [address]y RoadDublin [place] [id number] ALT [Catalytic activity/Vol] 14 U/L Normal 0-44 [facility]; [facility] Internal Medicine Work Phone: ALT enzyme act/vol 14 [iU]/L Normal 0-44 [facility] Internal Medicine Work Phone: Comment on above: PATIENT WAS FASTINGP ERFORMED BY: CB [facility] Unprcw2436 [address] RoadDublin [place] [id number] AST [Catalytic activity/Vol] 18 U/L Normal 0-40 [facility] Internal Medicine; [facility] Internal Medicine Work Phone: AST enzyme act/vol 18 [iU]/L Normal 0-40 [facility] Internal Medicine Work Phone: Comment on above: PATIENT WAS FASTINGP ERFORMED BY: [facility] Rotfum6199 [address]y RoadDublin [place] [id number] Bilirubin mass conc 0.9 mg/dL Normal 0.0-1.2 [facility] Internal Medicine Work Phone: Comment on above: PATIENT WAS FASTINGP ERFORMED BY: [facility] Obpboa2639 [address]houry RoadDublin [place] [id number] Calcium mass conc 9.1 mg/dL Normal 8.6-10.[address] [facility] centerive Internal Medicine Work Phone: Comment on above: PATIENT WAS FASTINGP ERFORMED BY: CB [facility] Pmqxcd8284 [address] RoadDublin [place] [id number] Chloride molar conc 106 mmol/L Normal 96-106 Compr [facility] Internal Medicine Work Phone: Comment on above: PATIENT WAS FASTINGP ERFORMED BY: CB [facility] Dpttno9361 [address] RoadDublin [place] [id number] CO2 molar conc 21 mmol/L Normal 20-29 Comprehens shawn Internal Medicine Work Phone: Comment on above: Please note refere nce interval change PATIENT WAS FASTINGP ERFORMED BY: CIERRA [facility] Zghoro1847 [address] RoadDublin [place] [id number] Creatinine mass conc 1.17 mg/dL Normal 0.76-1.27 Comp rehensive Internal Medicine Work Phone: Comment on above: PATIENT WAS FASTINGP ERFORMED BY: CB [facility] Mykylk5389 [address] RoadDublin [place] [id number] GFR/1.73 sq M predicted among blacks CKD-EPI vol rate/area (S/P/Bld) 68 mL/min/1.73 Normal Comprehensiv e Internal Medicine Work Phone: Comment on above: PATIENT WAS FASTINGP ERFORMED BY: CIERRA [facility] Sdoqgi0518 [address] RoadDublin [place] [id number] GFR/1.73 sq M predicted among non-blacks CKD-EPI vol rate/area (S/P/Bld) 59 mL/min/1.73 Abnormal [facility] Work Phone: Comment on above: PATIENT WAS FASTINGP ERFORMED BY: CIERRA [facility] Bdvrzf8718 Khoury RoadDuke Healthin [place] [id number] Globulin Calculated mass conc (S) 2.4 g/dL Normal 1.5-4.5 [facility] Work Phone: Globulin mass conc (S) 2.4 g/dL Normal 1.5-4.5 [facility] Work Phone: Comment on above: PATIENT WAS FASTINGP ERFORMED BY: CIERRA [facility] Uruhed3785 [address] RoadDublin [place] [id number] Glucose mass conc 97 mg/dL Normal 65-99 Compreh ensive Internal Medicine Work Phone: Comment on above: PATIENT WAS FASTINGP ERFORMED BY: CB [facility] Hunklb6911 [address] RoadDublin [place] [id number] Potassium molar conc 4.8 mmol/L Normal 3.5-5.2 Comp rehensive Internal Medicine Work Phone: Comment on above: PATIENT WAS FASTINGP ERFORMED BY: CIERRA LabCocheri Ovjwuj8247 [address] [facility] Hospitalblin [place] [id number] Protein mass conc 6.4 g/dL Normal 6.0-8.5 Compreh ensive Internal Medicine Work Phone: Comment on above: PATIENT WAS FASTINGP ERFORMED BY: CIERRA [facility] Eidkou4568 Khoury RoadDuke Healthin [place] [id number] Sodium molar conc 142 mmol/L Normal 134-144 Compreh ensive Internal Medicine Work Phone: Comment on above: PATIENT WAS FASTINGP ERFORMED BY: CIERRA LabCocheri Aidxkx5805 [address] [facility] [id number] Urea nitrogen mass conc 21 mg/dL Normal 8- [facility] Work Phone: Comment on above: PATIENT WAS FASTINGP ERFORMED BY: CIERRA LabCocheri ShieldsSlpure3050 [address] [facility] [id number] Urea nitrogen/Creatinine mass ratio 18 mg/mg Normal 10- [facility] Work Phone: Comment on above: PATIENT WAS FASTINGP ERFORMED BY: [facility] Ypusuj3990 [address] [facility] [place] [id number] MICROALBUMINOrdered By: Syst em Environmental Services Lead on 03-22-2018 Albumin DL <= 20 mg/L mass conc (U) 22.4 ug/mL Normal [facility] Work Phone: Comment on above: PATIENT WAS FASTINGP ERFORMED BY: CIERRA LabCo Ceqvwm3478 [address] [facility] [id number] Albumin/Creatinine mass ratio (U) 11.5 {mg/g_creat} Normal 0.0-30.0 [facility] Work Phone: Comment on above: PATIENT WAS FASTINGP ERFORMED BY: CIERRA LabCo Axzhue7970 K[address]y [facility] [place] [id number] Creatinine mass conc (U) 195.3 mg/dL Normal [facility] Work Phone: Comment on above: PATIENT WAS FASTINGP ERFORMED BY: CIERRA LabCo Uhwmot3291 [facility] [id number] Blood Glucose , Office ([phone])Ordered By: Richelle Campos on 02-14-2018 Glucose Glucometer molar conc (BldC) 103 1 Normal [facility] Work Phone: HgA1C , Office ([phone])Ordere d By: Marilynn Chanel on 02-14-2018 Hemoglobin A1c/Hemoglobin.total mass fraction (Bld) 6.2 % Normal 4.6 - 7.1 Comprehensiv e Internal Medicine Work Phone: PSA,Total - Annual ScreenOrd ered By: Client Advisor on 11-23-2017 Prostate specific Ag mass conc 0.52 ng/mL Normal 0.00-4.00 [facility] Work Phone: Comment on above: This test was perfor med using the TPSA assay method for [facility] CEIN chemistry system. Values obtained with differentassay methods cannot be used interchangably.When changing PSA assays in the course of monitoring apatient, additional sequential testing should be carriedout to confirm baseline values. [facility] Wywuqsjqze1856 [facility] [place], [address] Blood Glucose , Office ([phone])Ordered By: Richelle Campos on 11-08-2017 Glucose Glucometer molar conc (BldC) 130 1 Normal [facility] Work Phone: CBC W/AUTO DIFF WBC (64840)O rdered By: Client Advisor on 11-08-2017 Basophils #/vol (Bld) 0.0 {x10E3/uL} Normal 0.0-0.2 [facility] Work Phone: Comment on above: PATIENT WAS FASTINGP ERFORMED BY: [facility] Fkmixz2404 [facility] [id number] Basophils (Bld) [#/Vol] 0.0 10*3/uL Normal 0.0-0.2 [facility]; [facility] Work Phone: Basophils Auto #/vol (Bld) 0.0 {x10E3/uL} Normal 0.0-0.2 [facility] Work Phone: Basophils/100 WBC (Bld) 0 % Normal [facility] Work Phone: Comment on above: PATIENT WAS FASTINGP ERFORMED BY: RawporterMichele [place] [id number] [facility] [id number] Basophils/100 WBC Auto (Bld) 0 % Normal [facility] Work Phone: Eosinophils #/vol (Bld) 0.0 {x10E3/uL} Normal 0.0-0.4 [facility] Work Phone: Comment on above: PATIENT WAS FASTINGP ERFORMED BY: RawporterMichele [place] [id number] [facility] [id number] Eosinophils (Bld) [#/Vol] 0.0 10*3/uL Normal 0.0-0.4 [facility]; [facility] Work Phone: Eosinophils Auto #/vol (Bld) 0.0 {x10E3/uL} Normal 0.0-0.4 [facility] Work Phone: Eosinophils/100 WBC (Bld) 1 % Normal [facility] Work Phone: Comment on above: PATIENT WAS FASTINGP ERFORMED BY: RawporterMichele [place] [id number] [facility] [id number] Eosinophils/100 WBC Auto (Bld) 1 % Normal [facility] Work Phone: Erythrocyte distribution width Auto Ratio (RBC) 13.9 % Normal 12.3-15.4 [facility] Work Phone: Erythrocyte distribution width Ratio (RBC) 13.9 % Normal 12.3-15.4 [facility] Work Phone: Comment on above: PATIENT WAS FASTINGP ERFORMED BY: RawporterMichele [place] [id number] [facility] [id number] Hematocrit Auto Volume Fraction (Bld) 41.1 % Normal 37.5-51.0 Comprehens shawn Internal Medicine Work Phone: Hematocrit Volume Fraction (Bld) 41.1 % Normal 37.5-51.0 [facility] Work Phone: Comment on above: PATIENT WAS FASTINGP ERFORMED BY: CIERRA [facility]6370 [facility] [id number] Hemoglobin mass conc (Bld) 14.0 g/dL Normal 13.0-17.7 [facility] Work Phone: Comment on above: PATIENT WAS FASTINGP ERFORMED BY: [place] [id number] [facility] [id number] Immature granulocytes #/vol (Bld) 0.0 {x10E3/uL} Normal 0.0-0.1 [facility] Work Phone: Comment on above: PATIENT WAS FASTINGP ERFORMED BY: [place] [id number] [facility] [id number] Immature granulocytes (Bld) [#/Vol] 0.0 10*3/uL Normal 0.0-0.1 [facility]; [facility] Work Phone: Immature granulocytes/100 WBC (Bld) 0 % Normal [facility] Work Phone: Comment on above: PATIENT WAS FASTINGP ERFORMED BY: [facility]6370 [facility] [id number] Lymphocytes #/vol (Bld) 1.7 {x10E3/uL} Normal 0.7-3.1 [facility] Work Phone: Comment on above: PATIENT WAS FASTINGP ERFORMED BY: [facility]6370 [facility] [id number] Lymphocytes (Bld) [#/Vol] 1.7 10*3/uL Normal 0.7-3.1 [facility]; [facility] Work Phone: Lymphocytes Auto #/vol (Bld) 1.7 {x10E3/uL} Normal 0.7-3.1 [facility] Work Phone: Lymphocytes/100 WBC (Bld) 26 % Normal [facility] Work Phone: Comment on above: PATIENT WAS FASTINGP ERFORMED BY: [place] [id number] [facility] [id number] Lymphocytes/100 WBC Auto (Bld) 26 % Normal [facility] Work Phone: MCH Auto Entitic mass (RBC) 30.4 pg Normal 26.6-33.0 [facility] Work Phone: MCH Entitic mass (RBC) 30.4 pg Normal 26.6-33.0 [facility] Work Phone: Comment on above: PATIENT WAS FASTINGP ERFORMED BY: [facility]6370 [facility] [id number] MCHC Auto mass conc (RBC) 34.1 g/dL Normal 31.5-35.7 [facility] Work Phone: MCHC mass conc (RBC) 34.1 g/dL Normal 31.5-35.7 Comp [facility] Internal [facility] Work Phone: Comment on above: PATIENT WAS FASTINGP ERFORMED BY: CIERRA [facility]6370 [facility] [id number] MCV Auto Entitic volume (RBC) 89 fL Normal 79-97 [facility] Work Phone: MCV Entitic volume (RBC) 89 fL Normal 79-97 [facility] Work Phone: Comment on above: PATIENT WAS FASTINGP ERFORMED BY: CIERRA [place] [id number] [facility] [id number] Monocytes #/vol (Bld) 0.4 {x10E3/uL} Normal 0.1-0.9 [facility] Work Phone: Comment on above: PATIENT WAS FASTINGP ERFORMED BY: [facility]6370 [facility] [id number] Monocytes (Bld) [#/Vol] 0.4 10*3/uL Normal 0.1-0.9 [facility]; [facility] Work Phone: Monocytes Auto #/vol (Bld) 0.4 {x10E3/uL} Normal 0.1-0.9 [facility] Work Phone: Monocytes/100 WBC (Bld) 6 % Normal [facility] Work Phone: Comment on above: PATIENT WAS FASTINGP ERFORMED BY: [facility] Gzpbxh7681 [address] RoadDublin [place] [id number] Monocytes/100 WBC Auto (Bld) 6 % Normal [facility] Work Phone: Morphology Interp Priyank (Bld) Note: Normal [facility] Work Phone: Comment on above: Verified by microsco pic examination. PATIENT WAS FASTINGP ERFORMED BY: [facility] Drubxk1882 [address]y RoadDublin [place] [id number] Neutrophils #/vol (Bld) 4.4 {x10E3/uL} Normal 1.4-7.0 [facility] Work Phone: Comment on above: PATIENT WAS FASTINGP ERFORMED BY: [facility] Fhofor4287 K[address]y [facility] HospitalDuin [place] [id number] Neutrophils (Bld) [#/Vol] 4.4 10*3/uL Normal 1.4-7.0 [facility]; [facility] Work Phone: Neutrophils Auto #/vol (Bld) 4.4 {x10E3/uL} Normal 1.4-7.0 [facility] Work Phone: Neutrophils/100 WBC (Bld) 67 % Normal [facility] Work Phone: Comment on above: PATIENT WAS FASTINGP ERFORMED BY: [facility] Jkraep1696 [address] [facility] [place] [id number] Neutrophils/100 WBC Auto (Bld) 67 % Normal [facility] Work Phone: Platelets #/vol (Bld) 185 {x10E3/uL} Normal 150-379 [facility] Work Phone: Comment on above: PATIENT WAS FASTINGP ERFORMED BY: [facility] Oiaaov6100 [address] RoadDublin [place] [id number] Platelets (Bld) [#/Vol] 185 10*3/uL Normal 150-379 [facility]; [facility] Work Phone: Platelets Auto #/vol (Bld) 185 {x10E3/uL} Normal 150-379 [facility] Work Phone: RBC #/vol (Bld) 4.60 {x10E6/uL} Normal 4.14-5.80 Comp [facility]sive [facility] Work Phone: Comment on above: PATIENT WAS FASTINGP ERFORMED BY: CIERRA eRALOS370 [employer] InstrumentsUNC Health Blue Ridge [id number] RBC (Bld) [#/Vol] 4.60 10*6/uL Normal 4.14-5.80 Compr ensive Internal Medicine; [facility] Work Phone: RBC Auto #/vol (Bld) 4.60 {x10E6/uL} Normal 4.14-5.80 [facility] Work Phone: WBC #/vol (Bld) 6.6 {x10E3/uL} Normal 3.4-10.8 Compr [facility] Internal Medicine Work Phone: Comment on above: PATIENT WAS FASTINGP ERFORMED BY: CIERRA [employer]6370 [employer] InstrumentsUNC Health Blue Ridge [id number] WBC (Bld) [#/Vol] 6.6 10*3/uL Normal 3.4-10.8 [facility]; [facility] Work Phone: WBC Auto #/vol (Bld) 6.6 {x10E3/uL} Normal 3.4-10.8 [facility] Work Phone: HgA1C , Office ([id number])Ordere d By: Richelle Campos on 11-08-2017 Hemoglobin A1c/Hemoglobin.total mass fraction (Bld) 6.5 % Normal 4.6 - 7.1 Comprehensiv e Internal Medicine Work Phone: LIPID PANEL ([id number])Ordered B y: Client Advisor on 11-08-2017 Cholesterol in HDL mass conc 30 mg/dL Abnormal [facility] Work Phone: Comment on above: PATIENT WAS FASTINGP ERFORMED BY: CIERRA String EnterprisesUNC Health Blue Ridge [id number] Cholesterol in LDL mass conc 61 mg/dL Normal 0-99 [facility] Work Phone: Comment on above: PATIENT WAS FASTINGP ERFORMED BY: CIERRA Ellis6370 [facility] [id number] Cholesterol in LDL/Cholesterol in HDL mass ratio 2.0 {ratio_units} Normal 0.0-3.6 [facility] Work Phone: Comment on above: LDL/HDL Ratio Men Wo men 1/2 Avg.Risk 1.0 1.5 Avg.Risk 3.6 3.2 2X Avg.Risk 6.2 5.0 3X Avg.Risk 8.0 6.1 PATIENT WAS FASTINGP ERFORMED BY: CIERRA Ellis6370 [facility] [id number] Cholesterol in VLDL mass conc 20 mg/dL Normal 5-40 [facility] Work Phone: Comment on above: PATIENT WAS FASTINGP ERFORMED BY: CIERRA Shiedlslin6370 [facility] [id number] Cholesterol mass conc 111 mg/dL Normal 100-199 Com prehensive Internal Medicine Work Phone: Comment on above: PATIENT WAS FASTINGP ERFORMED BY: CIERRA Ellis6370 [facility] [id number] Triglyceride mass conc 101 mg/dL Normal 0-149 [facility] Work Phone: Comment on above: PATIENT WAS FASTINGP ERFORMED BY: CIERRA Ellis6370 [facility] [id number] METABOLIC PANEL, COMPREHENSI VE ([id number])Ordered By: Client Advisor on 11-08-2017 Albumin mass conc 4.0 g/dL Normal 3.5-4.7 Compreh ensive Internal Medicine Work Phone: Comment on above: PATIENT WAS FASTINGP ERFORMED BY: CIERRA Shieldslin6370 [facility] [id number] Albumin/Globulin mass ratio 1.4 {ratio} Normal 1.2-2.2 [facility] Work Phone: Comment on above: PATIENT WAS FASTINGP ERFORMED BY: CIERRA [facility] Uwzkwb5023 [address] RoadDublin [place] [id number] ALP [Catalytic activity/Vol] 124 U/L Abnormal 39-117 [facility]; [facility] Work Phone: ALP enzyme act/vol 124 [iU]/L Abnormal 39-117 [facility] Internal Medicine Work Phone: Comment on above: PATIENT WAS FASTINGP ERFORMED BY: CIERRA [facility] Ufpoge8920 [address] RoadDublin [place] [id number] ALT [Catalytic activity/Vol] 14 U/L Normal 0-44 [facility]; [facility] Work Phone: ALT enzyme act/vol 14 [iU]/L Normal 0-44 [facility] Internal Medicine Work Phone: Comment on above: PATIENT WAS FASTINGP ERFORMED BY: CIERRA LabCo Kxagwy7653 [address] Roadblin [place] [id number] AST [Catalytic activity/Vol] 22 U/L Normal 0-40 [facility]; [facility] Internal Medicine Work Phone: AST enzyme act/vol 22 [iU]/L Normal 0-40 [facility] Internal Medicine Work Phone: Comment on above: PATIENT WAS FASTINGP ERFORMED BY: CIERRA [facility] Uyidio1128 [address] [facility] [place] [id number] Bilirubin mass conc 1.0 mg/dL Normal 0.0-1.2 [facility] Internal Medicine Work Phone: Comment on above: PATIENT WAS FASTINGP ERFORMED BY: CIERRA [facility] Ckauxu1599 [address] RoadDublin [place] [id number] Calcium mass conc 9.1 mg/dL Normal 8.6-10.2 Compreh [facility] Internal Medicine Work Phone: Comment on above: PATIENT WAS FASTINGP ERFORMED BY: CIERRA [facility] Bvmuzg3606 [address]y RoadDublin [place] [id number] Chloride molar conc 105 mmol/L Normal 96-106 Compr ensive Internal Medicine Work Phone: Comment on above: PATIENT WAS FASTINGP ERFORMED BY: CIERRA [facility] Dcbpme3368 [address] RoadDublin [place] [id number] CO2 molar conc 22 mmol/L Normal 18-29 Comprehens shawn Internal Medicine Work Phone: Comment on above: PATIENT WAS FASTINGP ERFORMED BY: CIERRA [facility] Azxlbi5845 [address] RoadDublin [place] [id number] Creatinine mass conc 0.80 mg/dL Normal 0.76-1.27 Comp rehensive Internal Medicine Work Phone: Comment on above: PATIENT WAS FASTINGP ERFORMED BY: CIERRA [facility] Zmitax9575 [address] RoadDublin [place] [id number] GFR/1.73 sq M predicted among blacks CKD-EPI vol rate/area (S/P/Bld) 98 mL/min/1.73 Normal Comprehensiv e Internal Medicine Work Phone: Comment on above: PATIENT WAS FASTINGP ERFORMED BY: CIERRA [facility] Uvmxwb7415 [address] RoadDublin [place] [id number] GFR/1.73 sq M predicted among non-blacks CKD-EPI vol rate/area (S/P/Bld) 84 mL/min/1.73 Normal [facility] Work Phone: Comment on above: PATIENT WAS FASTINGP ERFORMED BY: CIERRA [facility] Bctzoh1368 [address] Roadblin [place] [id number] Globulin Calculated mass conc (S) 2.8 g/dL Normal 1.5-4.5 [facility] Work Phone: Globulin mass conc (S) 2.8 g/dL Normal 1.5-4.5 [facility] Work Phone: Comment on above: PATIENT WAS FASTINGP ERFORMED BY: CIERRA [facility] Fpmtlx7993 [address] RoadDublin [place] [id number] Glucose mass conc 120 mg/dL Abnormal 65-99 Compreh ensive Internal Medicine Work Phone: Comment on above: PATIENT WAS FASTINGP ERFORMED BY: CIERRA [facility] Ihilyn5078 [address] RoadDublin [place] [id number] Potassium molar conc 4.6 mmol/L Normal 3.5-5.2 Comp rehensive Internal Medicine Work Phone: Comment on above: PATIENT WAS FASTINGP ERFORMED BY: CIERRA Alicia Ellis6370 [facility] [id number] Protein mass conc 6.8 g/dL Normal 6.0-8.5 Compreh ensive Internal Medicine Work Phone: Comment on above: PATIENT WAS FASTINGP ERFORMED BY: CIERRA Jenn Nslgyr7879 [facility] [id number] Sodium molar conc 142 mmol/L Normal 134-144 Compreh ensive Internal Medicine Work Phone: Comment on above: PATIENT WAS FASTINGP ERFORMED BY: CIERRA [facility]Hed[facility] Kvqeqz9580 [facility] [id number] Urea nitrogen mass conc 14 mg/dL Normal 8-27 [facility] Work Phone: Comment on above: PATIENT WAS FASTINGP ERFORMED BY: CIERRA [facility] Ejzoqf3724 [facility] [id number] Urea nitrogen/Creatinine mass ratio 18 mg/mg Normal 10-24 [facility] Work Phone: Comment on above: PATIENT WAS FASTINGP ERFORMED BY: CIERRA [facility] Xthzqz9507 [facility] [id number] MICROALBUMINOrdered By: Syst em Environmental Services Lead on 11-08-2017 Albumin DL <= 20 mg/L mass conc (U) 66.0 ug/mL Normal [facility] Work Phone: Comment on above: PATIENT WAS FASTINGP ERFORMED BY: CIERRA [facility]6370 [facility] [id number] Albumin/Creatinine mass ratio (U) 48.0 {mg/g_creat} Abnormal 0.0-30.0 [facility] Work Phone: Comment on above: PATIENT WAS FASTINGP ERFORMED BY: CIERRA [place] [id number] [facility] [id number] Creatinine mass conc (U) 137.4 mg/dL Normal [facility] Work Phone: Comment on above: PATIENT WAS FASTINGP ERFORMED BY: CIERRA LabCocheri ShieldsGpvbxr2473 K[address] [facility] [place] [id number] Microscopic ExaminationOrder ed By: Client Advisor on 11-08-2017 Bacteria LM.HPF #/area (Urine sed) None seen Normal [facility] Work Phone: Comment on above: PATIENT WAS FASTINGP ERFORMED BY: CIERRA [facility] Kjedrg4055 [address] [facility] [place] [id number] Casts LM Nom (Urine sed) Hyaline casts Normal [facility] Work Phone: Comment on above: PATIENT WAS FASTINGP ERFORMED BY: CIERRA LabTierra ShieldsFrxvgc5152 K[address] [facility] [place] [id number] Casts LM Ql (Urine sed) Present Abnormal [facility] Work Phone: Comment on above: PATIENT WAS FASTINGP ERFORMED BY: CIERRA LabTierra ShieldsRsanqf0830 Khoury [facility] [id number] Epithelial cells LM.HPF #/area (Urine sed) None seen Normal 0 - 10 [facility] Work Phone: Comment on above: PATIENT WAS FASTINGP ERFORMED BY: CIERRA LabTierra ShieldsWlksyv1637 [address] [facility] [place] [id number] Mucus LM Ql (Urine sed) Present Normal [facility] Work Phone: Mucus Ql (Urine sed) Present Normal Comp rehensive Internal Medicine Work Phone: Comment on above: PATIENT WAS FASTINGP ERFORMED BY: CIERRA [facility] Khoaak6949 [address] RoadDublin [place] [id number] RBC LM.HPF #/area (Urine sed) 0-2 Normal 0 - 2 [facility] Work Phone: Comment on above: PATIENT WAS FASTINGP ERFORMED BY: CIERRA [facility] Qprmxb3486 Khoury [facility]bl[facility] [place] [id number] WBC LM.HPF #/area (Urine sed) 0-5 Normal 0 - 5 [facility] Work Phone: Comment on above: PATIENT WAS FASTINGP ERFORMED BY: CIERRA LabCo Lrwoav6113 [address] RoadDublin [place] [id number] TSH ([id number])Ordered By: Delma m Environmental Services Lead on 11-08-2017 Thyrotropin Qn 1.620 {uIU/mL} Normal 0.450-4.50 0 [facility] Work Phone: Comment on above: PATIENT WAS FASTINGP ERFORMED BY: CIERRA [facility] Lbehkq0361 [address]y RoadDublin [place] [id number] URINALYSIS, W/ MICRO ([id number]) Ordered By: Client Advisor on 11-08-2017 Appearance Nom (U) Clear Normal Compre hensive Internal Medicine Work Phone: Comment on above: PATIENT WAS FASTINGP ERFORMED BY: CIERAR [facility] Gvlpnu6307 [address] RoadDublin [place] [id number] Bilirubin Ql (U) Negative Normal Comprehe nsive Internal Medicine Work Phone: Comment on above: PATIENT WAS FASTINGP ERFORMED BY: CIERRA LabCo Wfkyro1776 [address] RoadDublin [place] [id number] Bilirubin Ql (U) Negative Normal Comprehe nsive Internal Medicine; [facility] Work Phone: Color Nom (U) Yellow Normal Comprehensi ve Internal Medicine Work Phone: Comment on above: PATIENT WAS FASTINGP ERFORMED BY: CIERRA [facility]Co Jnmwpk2361 [address] RoadDublin [place] [id number] Glucose Ql (U) Negative Normal Comprehens shawn Internal Medicine Work Phone: Comment on above: PATIENT WAS FASTINGP ERFORMED BY: CIERRA [facility] Bwrsqr4519 [address] RoadDublin [place] [id number] Glucose Ql (U) Negative Normal Comprehens shawn Internal Medicine; [facility] Work Phone: Hemoglobin Ql (U) Negative Normal Compreh ensive Internal Medicine Work Phone: Comment on above: PATIENT WAS FASTINGP ERFORMED BY: CIERRA [facility] Jshelf9310 [address] RoadDublin [place] [id number] Hemoglobin Ql (U) Negative Normal Compreh ensive Internal Medicine; [facility] Work Phone: Hemoglobin Test strip Ql (U) Negative Normal [facility] Work Phone: Ketones Ql (U) Negative Normal Comprehens shawn Internal Medicine Work Phone: Comment on above: PATIENT WAS FASTINGP ERFORMED BY: CIERRA [facility] Mqbxko7366 [address] RoadDublin [place] [id number] Ketones Ql (U) Negative Normal Comprehens shwan Internal Medicine; [facility] Work Phone: Leukocyte esterase Test strip Ql (U) Negative Normal [facility] Work Phone: Comment on above: PATIENT WAS FASTINGP ERFORMED BY: CB [facility] Mfgcgz0056 [address] RoadDublin [place] [id number] Leukocyte esterase Test strip Ql (U) Negative Normal [facility]; [facility] Work Phone: Microscopic observation LM Nom (Urine sed) MICRON Normal [facility] Work Phone: Comment on above: Microscopic follows if indicated. PATIENT WAS FASTINGP ERFORMED BY: CB [facility] Bcnvjr7946 [address] RoadDublin [place] [id number] Microscopic observation LM Nom (Urine sed) See below: Normal [facility] Work Phone: Comment on above: Microscopic was sander cated and was performed. PATIENT WAS FASTINGP ERFORMED BY: [facility] Qscfcd3796 [address] RoadDublin [place] [id number] Nitrite Ql (U) Negative Normal Comprehens shawn Internal Medicine Work Phone: Comment on above: PATIENT WAS FASTINGP ERFORMED BY: CB [facility] Etdfbr6417 [address] RoadDublin [place] [id number] Nitrite Ql (U) Negative Normal Comprehens shawn Internal Medicine; [facility] Work Phone: Nitrite Test strip Ql (U) Negative Normal [facility] Work Phone: pH (U) 5.5 [pH] Normal 5.0-7.5 [facility] Work Phone: Comment on above: PATIENT WAS FASTINGP ERFORMED BY: CIERRA TeachernowUniversity Health Truman Medical CenterEdlmhy6050 [address] 5211gameBlue Ridge Regional Hospital [id number] pH Test strip (U) 5.5 [pH] Normal 5.0-7.5 Compreh ensive Internal Medicine Work Phone: Protein Ql (U) Negative Normal Comprehens shawn Internal Medicine Work Phone: Comment on above: PATIENT WAS FASTINGP ERFORMED BY: CIERRA [facility] Mypctr3629 [facility] [id number] Protein Ql (U) Negative Normal Comprehens shawn Internal Medicine; [facility] Work Phone: Protein Test strip Ql (U) Negative Normal [facility] Work Phone: Specific gravity Relative Density (U) 1.023 1 Normal 1.005-1.03 0 [facility] Work Phone: Comment on above: PATIENT WAS FASTINGP ERFORMED BY: CIERRA [facility] Ejratk6213 [place] [facility] [id number] Urobilinogen (U) [Mass/Vol] 0.2 mg/dL Normal 0.2-1.0 [facility]; [facility] Work Phone: Urobilinogen Test strip mass conc (U) 0.2 mg/dL Normal 0.2-1.0 Comprehensiv e Internal Medicine Work Phone: Comment on above: PATIENT WAS FASTINGP ERFORMED BY: [facility] Uwgaey5947 [facility] [id number] Blood Glucose , Office ([phone])Ordered By: Richelle Campos on 05-05-2017 Glucose Glucometer molar conc (BldC) 164 1 Normal [facility] Work Phone: HgA1C , Office ([phone])Ordere d By: Richelle Campos on 05-05-2017 Hemoglobin A1c/Hemoglobin.total mass fraction (Bld) 6.0 % Normal 4.6 - 7.1 Comprehensiv e Internal Medicine Work Phone: CBC W/Diff, AutomatedOrdered By: Client Advisor on 04-27-2017 Absolute Lymph 1.72 {X10_3/ul} Normal 0.83-4.51 Compr ehensive Internal Medicine Work Phone: Absolute Neut 5.3 {X10_3/uL} Normal 2.0-7.7 Compreh ensive Internal Medicine Work Phone: Comment on above: [facility] [address] [place], [address] Basophils/100 WBC (Bld) 0.3 % Normal 0-1 [facility] Work Phone: Comment on above: [facility] [address] [place], [address] Basophils/100 WBC Auto (Bld) 0.3 % Normal 0-1 [facility] Work Phone: Eosinophils/100 WBC (Bld) 2.1 % Normal 0-5 [facility] Work Phone: Comment on above: [facility] [address] [place], [address] Eosinophils/100 WBC Auto (Bld) 2.1 % Normal 0-5 [facility] Work Phone: Erythrocyte distribution width Auto Ratio (RBC) 13.6 % Normal 11.6-14.6 [facility] Work Phone: Erythrocyte distribution width Ratio (RBC) 13.6 % Normal 11.6-14.6 [facility] Work Phone: Comment on above: [facility] [address] [place], [address] Hematocrit Auto Volume Fraction (Bld) 40.4 % Normal 40-54 Comprehens shawn Internal Medicine Work Phone: Hematocrit Volume Fraction (Bld) 40.4 % Normal 40-54 [facility] Work Phone: Comment on above: [facility] [address] [place], [address] Hemoglobin mass conc (Bld) 13.4 g/dL Normal 13.0-16.5 [facility] Work Phone: Comment on above: [facility] [address] [place], [address] IM GRAN % 0.100 % Normal 0.0-0.9 [facility] Work Phone: Comment on above: IG% - Immature Granu locytes (promyelocytes, myelocytes andmetamyelocytes) > 1% indicates that a LEFT SHIFT is Present. [facility] [address] [place], [address] Lymphocytes #/vol (Bld) 1.72 {X10_3/ul} Normal 0.83-4.51 [facility] Work Phone: Comment on above: [facility] [address] [place], [address] Lymphocytes/100 WBC (Bld) 22.7 % Normal 19-41 [facility] Work Phone: Comment on above: [facility] [address] [place], [address] Lymphocytes/100 WBC Auto (Bld) 22.7 % Normal 19-41 [facility] Work Phone: MCH Auto Entitic mass (RBC) 30.2 pg Normal 27.0-32.0 [facility] Work Phone: MCH Entitic mass (RBC) 30.2 pg Normal 27.0-32.0 [facility] Work Phone: Comment on above: [facility] [address] [place], [address] MCHC Auto mass conc (RBC) 33.2 {g/gl} Normal 32-36 [facility] Work Phone: MCHC mass conc (RBC) 33.2 {g/gl} Normal 32-36 [facility] prehensive Internal Medicine Work Phone: Comment on above: [facility] [address] [place], [address] MCV Auto Entitic volume (RBC) 91.2 fL Normal 80-94 [facility] Work Phone: MCV Entitic volume (RBC) 91.2 fL Normal 80-94 [facility] Work Phone: Comment on above: [facility] [address] [place], [address] Monocytes/100 WBC Auto (Bld) 5.4 % Normal 0-10 [facility] Work Phone: Comment on above: [facility] [address] [place], [address] Neutrophils/100 WBC (Bld) 69.4 % Normal 47-70 [facility] Work Phone: Comment on above: [facility] [address] [place], [address] Neutrophils/100 WBC Auto (Bld) 69.4 % Normal 47-70 [facility] Work Phone: Platelet mean volume Auto Entitic volume (Bld) 10.2 fL Normal 6.2-12.0 [facility] Work Phone: Platelet mean volume Entitic volume (Bld) 10.2 fL Normal 6.2-12.0 Comprehensi Internal Medicine Work Phone: Comment on above: [facility] [address] [place], [address] Platelets #/vol (Bld) 174 10*3/uL Normal 150-450 [facility] Internal [facility] Work Phone: Comment on above: [facility] [address] [place], [address] Platelets Auto #/vol (Bld) 174 10*3/uL Normal 150-450 [facility] Work Phone: RBC #/vol (Bld) 4.43 {M/mm3} Abnormal 4.6-6.2 Compreh ensive Internal Medicine Work Phone: Comment on above: [facility] [address] [place], [address] RBC Auto #/vol (Bld) 4.43 {M/mm3} Abnormal 4.6-6.2 Co mprehensive Internal Medicine Work Phone: RDW SD 44.7 fL Abnormal 35.1-43.9 [facility] Work Phone: Comment on above: [facility] [address] [place], [place], [phone] WBC #/vol (Bld) 7.6 10*3/uL Normal 4.4-11.0 Comprehe nsive Internal Medicine Work Phone: Comment on above: [facility] [address] [place], [address] WBC Auto #/vol (Bld) 7.6 10*3/uL Normal 4.4-11.0 Com prehensive Internal Medicine Work Phone: Comprehensive Metabolic Prof ilOrdered By: Client Advisor on 04-27-2017 Comprehensive metabolic 2000 panel 3.5 g/dL Normal 3.4-5.0 Comprehensi ve Internal Medicine Work Phone: Comment on above: [facility] [address] [place], [address] Comprehensive metabolic 2000 panel 8.4 mg/dL Abnormal 8.5-10.1 Comprehensi ve Internal Medicine Work Phone: Comment on above: [facility] [address] [place], [place], [phone] Comprehensive metabolic 2000 panel 142 mmol/L Normal 136-145 Comprehensi ve Internal Medicine Work Phone: Comment on above: [facility] [address] [place], [place], [phone] Comprehensive metabolic 2000 panel 3.4 g/dL Normal 2.3-3.5 Comprehensi ve Internal Medicine Work Phone: Comment on above: [facility] [address] [place], [place], [address] Comprehensive metabolic 2000 panel 18 U/L Normal 15-37 Comprehensi ve Internal Medicine Work Phone: Comment on above: [facility] [address] [place], [place], [address] Comprehensive metabolic 2000 panel 120 U/L Abnormal 45-117 Comprehensi ve Internal Medicine Work Phone: Comment on above: [facility] [address] [place], [place], [phone] Comprehensive metabolic 2000 panel 1.0 {RATIO} Normal 0.9-2.4 Comprehensi ve Internal Medicine Work Phone: Comment on above: [facility] [address] [place], [place], [phone] Comprehensive metabolic 2000 panel 16.7 {RATIO} Normal 10-20 Comprehensi ve Internal Medicine Work Phone: Comment on above: [facility] [address] [place], [place], [phone] Comprehensive metabolic 2000 panel 112 mmol/L Abnormal 98-107 Comprehensi ve Internal Medicine Work Phone: Comment on above: [facility] [address] [place], [address] Comprehensive metabolic 2000 panel 97 mL/min Normal Comprehensi ve Internal Medicine Work Phone: Comment on above: GFR Calc [facility] [address] [place], [address] Comprehensive metabolic 2000 panel 80 mL/min Normal Comprehensi ve Internal Medicine Work Phone: Comment on above: Non- GFR Calc [facility] [address] [place], [place], [phone] Comprehensive metabolic 2000 panel 25.0 mmol/L Normal 21.0-32.0 Comprehensi ve Internal Medicine Work Phone: Comment on above: [facility] [address] [place], [place], [phone] Comprehensive metabolic 2000 panel 1.20 mg/dL Abnormal 0.20-1.00 Comprehensi ve Internal Medicine Work Phone: Comment on above: [facility] [address] [place], [place], [phone] Comprehensive metabolic 2000 panel 5 1 Normal 5-15 Comprehensi ve Internal Medicine Work Phone: Comment on above: [facility] [address] [place], [place], [phone] Comprehensive metabolic 2000 panel 0.96 mg/dL Normal 0.70-1.30 Comprehensi ve Internal Medicine Work Phone: Comment on above: The validity of the calculated GFR AND GFRAA in patients over70 years has not been determined. Clinical correlation isessential. [facility] [address] [place], [place], [phone] Comprehensive metabolic 2000 panel 16 mg/dL Normal 7-18 Comprehensi ve Internal Medicine Work Phone: Comment on above: [facility] [address] [place], [place], [phone] Comprehensive metabolic 2000 panel 104 mg/dL Normal 70-110 Comprehensi ve Internal Medicine Work Phone: Comment on above: [facility] [address] [place], [place], [phone] Comprehensive metabolic 2000 panel 4.0 mmol/L Normal 3.5-5.1 Comprehensi ve Internal Medicine Work Phone: Comment on above: [facility] [address] [place], [place], [phone] Comprehensive metabolic 2000 panel 6.9 g/dL Normal 6.4-8.2 Comprehensi ve Internal Medicine Work Phone: Comment on above: [facility] [address] [place], [place], [phone] Comprehensive metabolic 2000 panel 20 U/L Normal 12-78 Comprehensi ve Internal Medicine Work Phone: Comment on above: [facility] [address] [place], [place], [phone] Lipid ProfileOrdered By: Marely tem [employer] Lead on 04-27-2017 Cholesterol in HDL mass conc 37 mg/dL Abnormal [facility] Work Phone: Comment on above: The drugs N-Acetylcy steine and Metamizole may falsely deressthis assay. Reference Range HDL <40 mg/dL Low HDL Cholesterol HDL >or= 60 mg/dL High HDL Cholesterol [facility] [address] [place], [place], [phone] Cholesterol in LDL mass conc 54 mg/dL Normal 0-130 [facility] Work Phone: Cholesterol in LDL mass conc 54 mg/dL Normal 0-130 [facility] Work Phone: Comment on above: [facility] [address] [place], [place], [phone] Cholesterol in VLDL mass conc 11 mg/dL Normal 5-40 [facility] Work Phone: Comment on above: [facility] [address] [place], [place], [phone] Cholesterol mass conc 102 mg/dL Normal Com prehensive Internal Medicine Work Phone: Comment on above: <200 mg/dL Desirable 200-240 mg/dL Borderline >240 mg/dL High Risk [facility] [address] [place], [place], [phone] Triglyceride mass conc 53 mg/dL Normal [facility] Work Phone: Comment on above: The drugs N-Acetylcy steine and Metamizole may falsely deressthis assay.Serum Triglycerides Reference Interval Normal <150 mg/dL Borderline high 150 - 199 mg/dL High 200 - 499 mg/dL Very High > or = 500 mg/dL [facility] [address] [place], [place], [phone] MicroalbOrdered By: Gerson last on 04-27-2017 MALB:CREAT 23.5 {mg/g_CRE} Normal Comprehen sive Internal Medicine Work Phone: MICROALBUMIN,UR 75.3 mg/L Normal Comprehen sive Internal Medicine Work Phone: UR CREAT 320.00 mg/dL Normal Comprehensiv e Internal Medicine Work Phone: Microalb 23.5 {mg/g_CRE} Normal Comprehen sive Internal Medicine Work Phone: Comment on above: [facility] [address] [place], [place], [phone] Microalb 75.3 mg/L Normal [facility] Work Phone: Comment on above: [facility] [address] [place], [place], [phone] Microalb 320.00 mg/dL Normal Comprehensiv e Internal Medicine Work Phone: Comment on above: [facility] [address] [place], [place], [phone] Thyroid Stim Hormone (TSH)Or dered By: Client Advisor on 04-27-2017 Thyrotropin Qn 1.10 {uIU/mL} Normal 0.358-3.74 Compreh ensive Internal Medicine Work Phone: Comment on above: [facility] [address] [place], [place], [phone] Urinalysis, CompleteOrdered By: Client Advisor on 04-27-2017 BACTERIA 0 SEEN Normal 0-5 [facility] Work Phone: Comment on above: How was Urine Obtain ed? CLEAN [facility] [address] [place], [address] CLARITY Clear Normal [facility] Work Phone: Comment on above: How was Urine Obtain ed? [facility] [address] [place], [address] COLOR Yellow Normal [facility] Work Phone: Comment on above: How was Urine Obtain ed? [facility] [address] [place], [address] GLUCOSE, UR Normal Normal [facility] Work Phone: Comment on above: How was Urine Obtain ed? [facility] [address] [place], [address] KETONE UR 5 mg/dL Abnormal [facility] Work Phone: Comment on above: How was Urine Obtain ed? [facility] [address] [place], [address] LEUK ESTERASE 25 /ul Abnormal Comprehensi ve Internal Medicine Work Phone: Comment on above: How was Urine Obtain ed? [facility] [address] [place], [address] MUCUS, URINE 1+ Normal Comprehensiv e Internal Medicine Work Phone: Comment on above: How was Urine Obtain ed? [facility] [address] [place], [address] NITRITE UR Negative Normal [facility] Work Phone: Comment on above: How was Urine Obtain ed? [facility] [address] [place], [address] pH UR 5.0 1 Normal 5.0 - 8.0 [facility] Work Phone: Comment on above: How was Urine Obtain ed? [facility] [address] [place], [address] PROT DIPSTX 30 mg/dL Abnormal [facility] Work Phone: Protein mass conc (U) 30 mg/dL Abnormal Com prehensive Internal Medicine Work Phone: Comment on above: How was Urine Obtain ed? [facility] [address] [place], [place], [phone] RBC #/vol (U) 0-5 SEEN Normal 0-5 Comprehensi ve Internal Medicine Work Phone: Comment on above: How was Urine Obtain ed? [facility] [address] [place], [place], [phone] RBC Test strip #/vol (U) 0-5 SEEN Normal 0-5 [facility] Work Phone: SP.GR. DIPSTX 1.020 1 Normal 1.002-1.03 0 [facility] Work Phone: Comment on above: How was Urine Obtain ed? [facility] [address] [place], [place], [phone] UROBILI 1 mg/dL Abnormal [facility] Work Phone: Comment on above: COLOR OF URINE MAY A FFECT DIPSTICK RESULTS. How was Urine Obtain ed? [facility] [address] [place], [place], [phone]([phone] WBC 0-5 SEEN Normal 0-5 [facility] Work Phone: Comment on above: How was Urine Obtain ed? [facility] [address] [place], [place], [phone] Blood Glucose , Office ([phone])Ordered By: Richelle Campos on 12-23-2016 Glucose Glucometer molar conc (BldC) 136 1 Normal [facility] Work Phone: HgA1C , Office ([phone])Ordere d By: Richelle Campos on 12-23-2016 Hemoglobin A1c/Hemoglobin.total mass fraction (Bld) 6.4 % Normal 4.6 - 7.1 Comprehensiv e Internal Medicine Work Phone: PSA,Total- DiagnosticOrdered By: Client Advisor on 11-17-2016 PSA, DIAGNOSTIC 0.40 ng/mL Normal 0.0-4.0 [facility] Internal Medicine Work Phone: Comment on above: This test was perfor med using the TPSA assay method for theDimension chemistry system. Values obtained with differentassay methods cannot be used interchangably.When changing PSA assays in the course of monitoring apatient, additional sequential testing should be carriedout to confirm baseline values. PSA,Total- Diagnostic 0.40 ng/mL Normal 0.0-4.0 [facility] Internal Medicine Work Phone: Comment on above: This test was perfor med using the TPSA assay method for theDimension chemistry system. Values obtained with differentassay methods cannot be used interchangably.When changing PSA assays in the course of monitoring apatient, additional sequential testing should be carriedout to confirm baseline values. [facility] [address] [facility] [place], [address] Blood Glucose , Office ([phone])Ordered By: Richelle Campos on 06-17-2016 Glucose Glucometer molar conc (BldC) 130 1 Normal [facility] Internal Medicine Work Phone: HgA1C , Office ([phone])Ordere d By: Richelle Campos on 06-17-2016 Hemoglobin A1c/Hemoglobin.total mass fraction (Bld) 6.1 % Normal 4.6 - 7.1 [facility] e Internal Medicine Work Phone: PSA (Medicare - [id number]) ([phone])Ordered By: Client Advisor on 06-17-2016 Prostate specific Ag mass conc 0.4 ng/mL Normal 0.0-4.0 [facility] Internal Medicine Work Phone: Comment on above: Raji ECLIA methodol ogy. .According to the [place] [employer], Serum PSA shoulddecrease and remain at undetectable levels after radicalprostatectomy. The AUA defines biochemical recurrence as an initialPSA value 0.2 ng/mL or greater followed by a subsequent confirmatoryPSA value 0.2 ng/mL or greater.Values obtained with different assay methods or kits cannot be usedinterchangeably. Results cannot be interpreted as absolute evidenceof the presence or absence of malignant disease. send copy to Dr Monica lema; PATIENT NOT FASTINGPERFORMED BY: [facility]CoNew [facility] CenterXhqxwh4438 [place] [id number] Information: [id number], [id number] CBC W/Diff, AutomatedOrdered By: Client Advisor on 06-14-2016 Absolute Lymph 1.30 {X10_3/ul} Normal 0.83-4.51 Compr ehensive Internal Medicine Work Phone: Absolute Neut 6.0 {X10_3/uL} Normal 2.0-7.7 Compreh ensive Internal Medicine Work Phone: Comment on above: [facility] [address] [place], [phone] Basophils/100 WBC (Bld) 0.3 % Normal 0-1 [facility] Work Phone: Comment on above: [facility] [address] [place], [address] Basophils/100 WBC Auto (Bld) 0.3 % Normal 0-1 [facility] Work Phone: Eosinophils/100 WBC (Bld) 2.1 % Normal 0-5 [facility] Work Phone: Comment on above: [facility] [address] [place], [address] Eosinophils/100 WBC Auto (Bld) 2.1 % Normal 0-5 [facility] Work Phone: Erythrocyte distribution width Auto Ratio (RBC) 13.4 % Normal 11.6-14.6 [facility] Work Phone: Erythrocyte distribution width Ratio (RBC) 13.4 % Normal 11.6-14.6 [facility] Work Phone: Comment on above: [facility] [address] [place], [address] Hematocrit Auto Volume Fraction (Bld) 41.2 % Normal 40-54 [facility] Internal Medicine Work Phone: Hematocrit Volume Fraction (Bld) 41.2 % Normal 40-54 [facility] Work Phone: Comment on above: [facility] [address] [place], [address] Hemoglobin mass conc (Bld) 13.6 g/dL Normal 13.0-16.5 [facility] Work Phone: Comment on above: [facility] [address] [place], [address] IM GRAN % 0.100 % Normal 0.0-0.9 [facility] Work Phone: Comment on above: IG% - Immature Granu locytes (promyelocytes, myelocytes andmetamyelocytes) > 1% indicates that a LEFT SHIFT is Present. [facility] [address] [place], [address] Lymphocytes #/vol (Bld) 1.30 {X10_3/ul} Normal 0.83-4.51 [facility] Work Phone: Comment on above: [facility] [address] [place], [address] Lymphocytes/100 WBC (Bld) 16.4 % Abnormal 19-41 [facility] Work Phone: Comment on above: [facility] [address] [place], [address] Lymphocytes/100 WBC Auto (Bld) 16.4 % Abnormal 19-41 [facility] Work Phone: MCH Auto Entitic mass (RBC) 30.4 pg Normal 27.0-32.0 [facility] Work Phone: MCH Entitic mass (RBC) 30.4 pg Normal 27.0-32.0 [facility] Work Phone: Comment on above: [facility] [address] [place], [address] MCHC Auto mass conc (RBC) 33.0 {g/gl} Normal 32-36 [facility] Work Phone: MCHC mass conc (RBC) 33.0 {g/gl} Normal 32-36 [facility] prehensive Internal Medicine Work Phone: Comment on above: [facility] [address] [place], [address] MCV Auto Entitic volume (RBC) 92.0 fL Normal 80-94 [facility] Work Phone: MCV Entitic volume (RBC) 92.0 fL Normal 80-94 [facility] Work Phone: Comment on above: [facility] [address] [place], [address] Monocytes/100 WBC Auto (Bld) 5.7 % Normal 0-10 [facility] Work Phone: Comment on above: [facility] [address] [place], [address] Neutrophils/100 WBC (Bld) 75.4 % Abnormal 47-70 [facility] Work Phone: Comment on above: [facility] [address] [place], [address] Neutrophils/100 WBC Auto (Bld) 75.4 % Abnormal 47-70 [facility] Work Phone: Platelet mean volume Auto Entitic volume (Bld) 10.5 fL Normal 6.2-12.0 [facility] Work Phone: Platelet mean volume Entitic volume (Bld) 10.5 fL Normal 6.2-12.0 Comprehensi Internal Medicine Work Phone: Comment on above: [facility] [address] [place], [address] Platelets #/vol (Bld) 177 10*3/uL Normal 150-450 Co mprehensive Internal Medicine Work Phone: Comment on above: [facility] [address] [place], [address] Platelets Auto #/vol (Bld) 177 10*3/uL Normal 150-450 Comprehensive [facility] Work Phone: RBC #/vol (Bld) 4.48 {M/mm3} Abnormal 4.6-6.2 Compreh ensive Internal Medicine Work Phone: Comment on above: [facility] [address] [place], [place], [phone] RBC Auto #/vol (Bld) 4.48 {M/mm3} Abnormal 4.6-6.2 Co mprehensive Internal Medicine Work Phone: RDW SD 45.0 fL Abnormal 35.1-43.9 [facility] Work Phone: Comment on above: [facility] [address] [place], [place], [phone] WBC #/vol (Bld) 8.0 10*3/uL Normal 4.4-11.0 Comprehe nsive Internal Medicine Work Phone: Comment on above: [facility] [address] [place], [address] WBC Auto #/vol (Bld) 8.0 10*3/uL Normal 4.4-11.0 Com prehensive Internal Medicine Work Phone: Comprehensive Metabolic Prof ilOrdered By: Client Advisor on 06-14-2016 Comprehensive metabolic 2000 panel 99 mL/min Normal Comprehensi ve Internal Medicine Work Phone: Comment on above: GFR Calc [facility] [address] [place], [place], [phone] Comprehensive metabolic 2000 panel 21 U/L Normal 12-78 Comprehensi ve Internal Medicine Work Phone: Comment on above: [facility] [address] [place], [address] Comprehensive metabolic 2000 panel 110 U/L Normal 50-136 Comprehensi ve Internal Medicine Work Phone: Comment on above: [facility] [address] [place], [address] Comprehensive metabolic 2000 panel 8.2 mg/dL Abnormal 8.5-10.1 Comprehensi ve Internal Medicine Work Phone: Comment on above: [facility] [address] [place], [address] Comprehensive metabolic 2000 panel 82 mL/min Normal Comprehensi ve Internal Medicine Work Phone: Comment on above: Non- GFR Calc [facility] [address] [place], [address] Comprehensive metabolic 2000 panel 15.9 {RATIO} Normal 10-20 Comprehensi ve Internal Medicine Work Phone: Comment on above: [facility] [address] [place], [address] Comprehensive metabolic 2000 panel 15 mg/dL Normal 7-18 Comprehensi ve Internal Medicine Work Phone: Comment on above: [facility] [address] [place], [address] Comprehensive metabolic 2000 panel 1.0 {RATIO} Normal 0.9-2.4 Comprehensi ve Internal Medicine Work Phone: Comment on above: [facility] [address] [place], [address] Comprehensive metabolic 2000 panel 108 mmol/L Abnormal 98-107 Comprehensi ve Internal Medicine Work Phone: Comment on above: [facility] [address] [place], [address] Comprehensive metabolic 2000 panel 7 1 Normal 5-15 Comprehensi ve Internal Medicine Work Phone: Comment on above: [facility] [address] [place], [place], [phone] Comprehensive metabolic 2000 panel 25.0 mmol/L Normal 21.0-32.0 Comprehensi ve Internal Medicine Work Phone: Comment on above: [facility] [address] [place], [place], [phone] Comprehensive metabolic 2000 panel 120 mg/dL Abnormal 70-110 Comprehensi ve Internal Medicine Work Phone: Comment on above: Fasting Glucose resu lt from 110 to <126 mg/dLsuggests IMPAIRED HOMEOSTASIS per A.D.A. criteria. [facility] [address] [place], [place], [phone] Comprehensive metabolic 2000 panel 3.4 g/dL Normal 2.3-3.5 Comprehensi ve Internal Medicine Work Phone: Comment on above: [facility] [address] [place], [place], [phone] Comprehensive metabolic 2000 panel 6.9 g/dL Normal 6.4-8.2 Comprehensi ve Internal Medicine Work Phone: Comment on above: [facility] [address] [place], [place], [phone] Comprehensive metabolic 2000 panel 3.5 g/dL Normal 3.4-5.0 Comprehensi ve Internal Medicine Work Phone: Comment on above: [facility] [address] [place], [place], [address] Comprehensive metabolic 2000 panel 0.94 mg/dL Normal 0.70-1.30 Comprehensi ve Internal Medicine Work Phone: Comment on above: The validity of the calculated GFR AND GFRAA in patients over70 years has not been determined. Clinical correlation isessential. [facility] [address] [place], [place], [phone] Comprehensive metabolic 2000 panel 3.9 mmol/L Normal 3.5-5.1 Comprehensi ve Internal Medicine Work Phone: Comment on above: [facility] [address] [place], [place], [phone] Comprehensive metabolic 2000 panel 140 mmol/L Normal 136-145 Comprehensi ve Internal Medicine Work Phone: Comment on above: [facility] [address] [place], [place], [phone] Comprehensive metabolic 2000 panel 1.10 mg/dL Abnormal 0.20-1.00 Comprehensi ve Internal Medicine Work Phone: Comment on above: [facility] [address] [place], [place], [phone] Lipid ProfileOrdered By: Marely tem [employer] Lead on 06-14-2016 Cholesterol in HDL mass conc 40 mg/dL Normal Comprehensive [facility] Work Phone: Comment on above: The drugs N-Acetylcy steine and Metamizole may falsely deressthis assay. Reference Range HDL <40 mg/dL Low HDL Cholesterol HDL >or= 60 mg/dL High HDL Cholesterol [facility] [address] [place], [place], [phone] Cholesterol in LDL mass conc 47 mg/dL Normal 0-130 [facility] Work Phone: Cholesterol in LDL mass conc 47 mg/dL Normal 0-130 [facility] Work Phone: Comment on above: [facility] [address] [place], [place], [address] Cholesterol in VLDL mass conc 13 mg/dL Normal 5-40 Comprehensive [facility] Work Phone: Comment on above: [facility] [address] [place], [place], [phone] Cholesterol mass conc 100 mg/dL Normal Com prehensive Internal Medicine Work Phone: Comment on above: <200 mg/dL Desirable 200-240 mg/dL Borderline >240 mg/dL High Risk [facility] [address] [place], [place], [address] Triglyceride mass conc 65 mg/dL Normal [facility] Work Phone: Comment on above: The drugs N-Acetylcy steine and Metamizole may falsely deressthis assay.Serum Triglycerides Reference Interval Normal <150 mg/dL Borderline high 150 - 199 mg/dL High 200 - 499 mg/dL Very High > or = 500 mg/dL [facility] [address] [place], [place], [address] MicroalbOrdered By: Gerson last on 06-14-2016 MALB:CREAT 16.1 {mg/g_CRE} Normal Comprehen sive Internal Medicine Work Phone: MICROALBUMIN,UR 47.4 mg/L Normal Comprehen sive Internal Medicine Work Phone: UR CREAT 295.00 mg/dL Normal Comprehensiv e Internal Medicine Work Phone: Microalb 295.00 mg/dL Normal Comprehensiv e Internal Medicine Work Phone: Comment on above: [facility] [address] [place], [place], [address] Microalb 47.4 mg/L Normal [facility] Work Phone: Comment on above: [facility] [address] [place], [place], [phone] Microalb 16.1 {mg/g_CRE} Normal Comprehen sive Internal Medicine Work Phone: Comment on above: [facility] [address] [place], [place], [phone] Thyroid Stim Hormone (TSH)Or dered By: Client Advisor on 06-14-2016 Thyrotropin Qn 0.96 {uIU/mL} Normal 0.358-3.74 Compreh ensive Internal Medicine Work Phone: Comment on above: [facility] [address] [place], [place], [phone] Urinalysis, CompleteOrdered By: Client Advisor on 06-14-2016 BACTERIA 0 SEEN Normal [facility] Work Phone: Comment on above: How was Urine Obtain ed? [facility] [address] [place], [address] CLARITY Sl. Cloudy Normal [facility] Work Phone: Comment on above: How was Urine Obtain ed? [facility] [address] [place], [address] COLOR Yellow Normal [facility] Work Phone: Comment on above: How was Urine Obtain ed? [facility] [address] [place], [address] GLUCOSE, UR Normal Normal [facility] Work Phone: Comment on above: How was Urine Obtain ed? [facility] [address] [place], [address] LEUK ESTERASE 25 /ul Abnormal Comprehensi ve Internal Medicine Work Phone: Comment on above: How was Urine Obtain ed? [facility] [address] [place], [address] MUCUS, URINE 1+ Normal Comprehensiv e Internal Medicine Work Phone: Comment on above: How was Urine Obtain ed? [facility] [address] [place], [address] NITRITE UR Negative Normal [facility] Work Phone: Comment on above: How was Urine Obtain ed? [facility] [address] [place], [address] OCCULT BLOOD-UR 10 /ul Abnormal Comprehen sive Internal Medicine Work Phone: Comment on above: How was Urine Obtain ed? [facility] [address] [place], [id number] pH UR 6.0 1 Normal 5.0 - 8.0 [facility] Work Phone: Comment on above: How was Urine Obtain ed? [facility] [address]ls[address] [place], [phone] PROT DIPSTX 15 mg/dL Abnormal [facility] Work Phone: Protein mass conc (U) 15 mg/dL Abnormal Com prehensive Internal Medicine Work Phone: Comment on above: How was Urine Obtain ed? [facility] [address] [place], [phone] RBC #/vol (U) 0-5 SEEN Normal 0-5 Comprehensi ve Internal Medicine Work Phone: Comment on above: How was Urine Obtain ed? [facility] [address] [place], [phone] RBC Test strip #/vol (U) 0-5 SEEN Normal 0-5 [facility] Work Phone: SP.GR. DIPSTX 1.020 1 Normal 1.002-1.03 0 [facility] Work Phone: Comment on above: How was Urine Obtain ed? [facility] [address] [place], [phone] SQUAM EPI 0-5 SEEN Normal 0-5 [facility] Work Phone: Comment on above: How was Urine Obtain ed? [facility] [address] [place], [phone] UROBILI 1 mg/dL Abnormal [facility] Work Phone: Comment on above: How was Urine Obtain ed? [facility] [address] [place], [phone] Vitamin D,25 HydroxyOrdered By: Client Advisor on 06-14-2016 Vitamin D 25-OH 43.1 ng/mL Normal Comprehen [facility] Internal Medicine Work Phone: Comment on above: Vitamin D 25(OH) Sta tus Range Deficiency <20 ng/mL (50nmol/L) Insuffciency 20 - 30 ng/mL (50 - 75 nmol/L) Sufficiency 30 - 100 ng/mL (75 - 250 nmol/L) Toxicity >100 ng/mL (>250 nmol/L) Vitamin D,25 Hydroxy 43.1 ng/mL Normal Comp rehensive Internal Medicine Work Phone: Comment on above: Vitamin D 25(OH) Sta tus Range Deficiency <20 ng/mL (50nmol/L) Insuffciency 20 - 30 ng/mL (50 - 75 nmol/L) Sufficiency 30 - 100 ng/mL (75 - 250 nmol/L) Toxicity >100 ng/mL (>250 nmol/L) [facility] [address] [place] [address], [address] Blood Glucose , Office ([phone])Ordered By: Richelle Campos on 02-13-2016 Glucose Glucometer molar conc (BldC) 94 1 Normal [facility] Work Phone: HgA1C , Office ([phone])Ordere d By: Richelle Campos on 02-13-2016 Hemoglobin A1c/Hemoglobin.total mass fraction (Bld) 6.2 % Normal 4.6 - 7.1 Comprehensiv e Internal Medicine Work Phone: Blood Glucose , Office ([phone])Ordered By: Richelle Campos on 11-12-2015 Glucose Glucometer molar conc (BldC) 81 1 Normal [facility] Work Phone: HgA1C , Office ([phone])Ordere d By: Richelle Camops on 11-12-2015 Hemoglobin A1c/Hemoglobin.total mass fraction (Bld) 6.2 % Normal 4.6 - 7.1 Comprehensiv e Internal Medicine Work Phone: CBC W/Diff, AutomatedOrdered By: Client Advisor on 11-07-2015 Absolute Lymph 1.96 {X10_3/ul} Normal 0.83-4.51 Compr ensive Internal Medicine Work Phone: Absolute Neut 6.6 {X10_3/uL} Normal 2.0-7.7 Compreh ensive Internal Medicine Work Phone: Comment on above: [facility] [address] [place], [address] Basophils/100 WBC (Bld) 0.2 % Normal 0-1 [facility] Work Phone: Comment on above: [facility] [address] [place], [address] Basophils/100 WBC Auto (Bld) 0.2 % Normal 0-1 [facility] Work Phone: Eosinophils/100 WBC (Bld) 2.1 % Normal 0-5 [facility] Work Phone: Comment on above: [facility] [address] [place], [address] Eosinophils/100 WBC Auto (Bld) 2.1 % Normal 0-5 [facility] Work Phone: Erythrocyte distribution width Auto Ratio (RBC) 13.3 % Normal 11.6-14.6 [facility] Work Phone: Erythrocyte distribution width Ratio (RBC) 13.3 % Normal 11.6-14.6 [facility] Work Phone: Comment on above: [facility] [address] [place], [address] Hematocrit Auto Volume Fraction (Bld) 43.0 % Normal 40-54 Comprehens shawn Internal Medicine Work Phone: Hematocrit Volume Fraction (Bld) 43.0 % Normal 40-54 [facility] Work Phone: Comment on above: [facility] [address] [place], [address] Hemoglobin mass conc (Bld) 14.7 g/dL Normal 13.0-16.5 [facility] Work Phone: Comment on above: [facility] [address] [place], [place], [phone] IM GRAN % 0.200 % Normal 0.0-0.9 [facility] Work Phone: Comment on above: IG% - Immature Granu locytes (promyelocytes, myelocytes andmetamyelocytes) > 1% indicates that a LEFT SHIFT is Present. [place] [address] [place], [place], [phone] Lymphocytes #/vol (Bld) 1.96 {X10_3/ul} Normal 0.83-4.51 [facility] Work Phone: Comment on above: [place] [address] [place], [address] Lymphocytes/100 WBC (Bld) 20.8 % Normal 19-41 [facility] Work Phone: Comment on above: [place] [address] [place], [address] Lymphocytes/100 WBC Auto (Bld) 20.8 % Normal 19-41 [facility] Work Phone: MCH Auto Entitic mass (RBC) 31.0 pg Normal 27.0-32.0 [facility] Work Phone: MCH Entitic mass (RBC) 31.0 pg Normal 27.0-32.0 [facility] Work Phone: Comment on above: [place] [address] [place], [place], [phone] MCHC Auto mass conc (RBC) 34.2 {g/gl} Normal 32-36 [facility] Work Phone: MCHC mass conc (RBC) 34.2 {g/gl} Normal 32-36 [facility] prehensive Internal Medicine Work Phone: Comment on above: [place] [address] [place], [place], [phone] MCV Auto Entitic volume (RBC) 90.7 fL Normal 80-94 [facility] Work Phone: MCV Entitic volume (RBC) 90.7 fL Normal 80-94 [facility] Work Phone: Comment on above: [facility] [address] [place], [address] Monocytes/100 WBC Auto (Bld) 6.3 % Normal 0-10 [facility] Work Phone: Comment on above: [facility] [address] [place], [address] Neutrophils/100 WBC (Bld) 70.4 % Abnormal 47-70 [facility] Work Phone: Comment on above: [facility] [address] [place], [address] Neutrophils/100 WBC Auto (Bld) 70.4 % Abnormal 47-70 [facility] Work Phone: Platelet mean volume Auto Entitic volume (Bld) 10.9 fL Normal 6.2-12.0 [facility] Work Phone: Platelet mean volume Entitic volume (Bld) 10.9 fL Normal 6.2-12.0 Comprehensi Internal Medicine Work Phone: Comment on above: [facility] [address] [place], [address] Platelets #/vol (Bld) 180 10*3/uL Normal 150-450 Co mprehensive Internal Medicine Work Phone: Comment on above: [facility] [address] [place], [address] Platelets Auto #/vol (Bld) 180 10*3/uL Normal 150-450 [facility] Work Phone: RBC #/vol (Bld) 4.74 {M/mm3} Normal 4.6-6.2 Compreh ensive Internal Medicine Work Phone: Comment on above: [facility] [address] [place], [place], [phone] RBC Auto #/vol (Bld) 4.74 {M/mm3} Normal 4.6-6.2 [facility] Work Phone: RDW SD 43.8 fL Normal 35.1-43.9 [facility] Work Phone: Comment on above: [facility] [address] [place], [place], [phone] WBC #/vol (Bld) 9.4 10*3/uL Normal 4.4-11.0 Comprehe nsive Internal Medicine Work Phone: Comment on above: [facility] [address] [place], [address] WBC Auto #/vol (Bld) 9.4 10*3/uL Normal 4.4-11.0 [facility] prehensive Internal Medicine Work Phone: Comprehensive Metabolic Prof ilOrdered By: Client Advisor on 11-07-2015 Comprehensive metabolic 2000 panel 1.40 mg/dL Abnormal 0.20-1.00 Comprehensi ve Internal Medicine Work Phone: Comment on above: [facility] [address] [place], [address] Comprehensive metabolic 2000 panel 22 U/L Normal 15-37 Comprehensi ve Internal Medicine Work Phone: Comment on above: [facility] [address] [place], [address] Comprehensive metabolic 2000 panel 26 U/L Normal 12-78 Comprehensi ve Internal Medicine Work Phone: Comment on above: [facility] [address] [place], [address] Comprehensive metabolic 2000 panel 14 mg/dL Normal 7-18 Comprehensi ve Internal Medicine Work Phone: Comment on above: [facility] [address] [place], [place], [address] Comprehensive metabolic 2000 panel 1.01 mg/dL Normal 0.70-1.30 Comprehensi ve Internal Medicine Work Phone: Comment on above: The validity of the calculated GFR AND GFRAA in patients over70 years has not been determined. Clinical correlation isessential. [facility] [address] [place], [place], [phone] Comprehensive metabolic 2000 panel 76 mL/min Normal Comprehensi ve Internal Medicine Work Phone: Comment on above: Non- GFR Calc [facility] [address] [place], [place], [phone] Comprehensive metabolic 2000 panel 92 mL/min Normal Comprehensi ve Internal Medicine Work Phone: Comment on above: GFR Calc [facility] [address] [place], [place], [address] Comprehensive metabolic 2000 panel 13.9 {RATIO} Normal 10-20 Comprehensi ve Internal Medicine Work Phone: Comment on above: [facility] [address] [place], [place], [phone] Comprehensive metabolic 2000 panel 7.4 g/dL Normal 6.4-8.2 Comprehensi ve Internal Medicine Work Phone: Comment on above: [facility] [address] [place], [place], [address] Comprehensive metabolic 2000 panel 4.0 g/dL Normal 3.4-5.0 Comprehensi ve Internal Medicine Work Phone: Comment on above: [facility] [address] [place], [place], [phone] Comprehensive metabolic 2000 panel 3.4 g/dL Normal 2.3-3.5 Comprehensi ve Internal Medicine Work Phone: Comment on above: [facility] [address] [place], [place], [address] Comprehensive metabolic 2000 panel 27.0 mmol/L Normal 21.0-32.0 Comprehensi ve Internal Medicine Work Phone: Comment on above: [facility] [address] [place], [place], [address] Comprehensive metabolic 2000 panel 143 mmol/L Normal 136-145 Comprehensi ve Internal Medicine Work Phone: Comment on above: [facility] [address] [place], [place], [address] Comprehensive metabolic 2000 panel 1.2 {RATIO} Normal 0.9-2.4 Comprehensi ve Internal Medicine Work Phone: Comment on above: [facility] [address] [place], [place], [address] Comprehensive metabolic 2000 panel 8.6 mg/dL Normal 8.5-10.1 Comprehensi ve Internal Medicine Work Phone: Comment on above: [facility] [address] [place], [place], [address] Comprehensive metabolic 2000 panel 109 mg/dL Normal 70-110 Comprehensi ve Internal Medicine Work Phone: Comment on above: [facility] [address] [place], [place], [address] Comprehensive metabolic 2000 panel 7 1 Normal 5-15 Comprehensi ve Internal Medicine Work Phone: Comment on above: [facility] [address] [place], [place], [address] Comprehensive metabolic 2000 panel 4.7 mmol/L Normal 3.5-5.1 Comprehensi ve Internal Medicine Work Phone: Comment on above: [facility] [address] [place], [place], [address] Comprehensive metabolic 2000 panel 118 U/L Normal 50-136 Comprehensi ve Internal Medicine Work Phone: Comment on above: [facility] [address] [place], [place], [phone] Comprehensive metabolic 2000 panel 109 mmol/L Abnormal 98-107 Comprehensi ve Internal Medicine Work Phone: Comment on above: [facility] [address] [place], [place], [phone] Lipid ProfileOrdered By: Marely tem on 11-07-2015 Cholesterol in HDL mass conc 39 mg/dL Abnormal [facility] Work Phone: Comment on above: Reference Range HDL <40 mg/dL Low HDL Cholesterol HDL >or= 60 mg/dL High HDL Cholesterol [facility] [address] [place], [place], [address] Cholesterol in LDL mass conc 53 mg/dL Normal 0-130 [facility] Work Phone: Cholesterol in LDL mass conc 53 mg/dL Normal 0-130 [facility] Work Phone: Comment on above: [facility] [address] [place], [place], [address] Cholesterol in VLDL mass conc 17 mg/dL Normal 5-40 [facility] Work Phone: Comment on above: [facility] [address] [place], [place], [address] Cholesterol mass conc 109 mg/dL Normal Com prehensive Internal Medicine Work Phone: Comment on above: <200 mg/dL Desirable 200-240 mg/dL Borderline >240 mg/dL High Risk [facility] [address] [place], [place], [address] Triglyceride mass conc 83 mg/dL Normal [facility] Work Phone: Comment on above: Serum Triglycerides Reference Interval Normal <150 mg/dL Borderline high 150 - 199 mg/dL High 200 - 499 mg/dL Very High > or = 500 mg/dL [facility] [address] [place], [place], [address] MicroalbOrdered By: Gerson last on 11-07-2015 MALB:CREAT 19.1 {mg/g_CRE} Normal Comprehen sive Internal Medicine Work Phone: MICROALBUMIN,UR 21.6 mg/L Normal Comprehen sive Internal Medicine Work Phone: UR CREAT 113.00 mg/dL Normal Comprehensiv e Internal Medicine Work Phone: Microalb 113.00 mg/dL Normal Comprehensiv e Internal Medicine Work Phone: Comment on above: [facility] [address] [place], [place], [address] Microalb 19.1 {mg/g_CRE} Normal Comprehen sive Internal Medicine Work Phone: Comment on above: [facility] [address] [place], [place], [address] Microalb 21.6 mg/L Normal [facility] Work Phone: Comment on above: [facility] [address] [place], [place], [phone] Thyroid Stim Hormone (TSH)Or dered By: Client Advisor on 11-07-2015 Thyrotropin Qn 1.83 {uIU/mL} Normal 0.358-3.74 Compreh ensive Internal Medicine Work Phone: Comment on above: [facility] [address] [place], [place], [phone] Urinalysis, CompleteOrdered By: Client Advisor on 11-07-2015 BACTERIA RARE Normal [facility] Work Phone: Comment on above: How was Urine Obtain ed? CLEAN [facility] [address] [place], [place], [phone] CLARITY Clear Normal [facility] Work Phone: Comment on above: How was Urine Obtain ed? CLEAN [facility] [address] [place], [address] COLOR Yellow Normal Comprehensive [facility] Work Phone: Comment on above: How was Urine Obtain ed? [facility] [address] [place], [address] GLUCOSE, UR Normal Normal [facility] Work Phone: Comment on above: How was Urine Obtain ed? [facility] [address] [place], [address] pH UR 6.0 1 Normal 5.0 - 8.0 [facility] Work Phone: Comment on above: How was Urine Obtain ed? [facility] [address]cc[address] [place], [address] PROT DIPSTX Negative Normal Comprehensive [facility] Work Phone: Comment on above: How was Urine Obtain ed? [facility] [address] [place], [address] Protein mass conc (U) Negative Normal Com prehensive Internal Medicine Work Phone: Comment on above: How was Urine Obtain ed? [facility] [address] [place], [address] RBC #/vol (U) 0 SEEN Normal 0-5 Comprehensi ve Internal Medicine Work Phone: Comment on above: How was Urine Obtain ed? [facility] Oyeb[address] [place], [address] RBC Test strip #/vol (U) 0 SEEN Normal 0-5 [facility] Work Phone: SP.GR. DIPSTX 1.015 1 Normal 1.002-1.03 0 [facility] Work Phone: Comment on above: How was Urine Obtain ed? [facility] Coubxzhnwf[address] [place], [address] WBC 0 SEEN Normal 0-5 [facility] Work Phone: Comment on above: How was Urine Obtain ed? CLEAN [facility] Lteacwsytw[address] [place], [place], [id number] PSA,Total- DiagnosticOrdered By: Client Advisor on 11-06-2015 PSA, DIAGNOSTIC 0.29 ng/mL Normal 0.0-4.0 [facility] Internal Medicine Work Phone: Comment on above: This test was perfor med using the TPSA assay method for theDimension chemistry system. Values obtained with differentassay methods cannot be used interchangably.When changing PSA assays in the course of monitoring apatient, additional sequential testing should be carriedout to confirm baseline values. PSA,Total- Diagnostic 0.29 ng/mL Normal 0.0-4.0 [facility] prehensive Internal Medicine Work Phone: Comment on above: This test was perfor med using the TPSA assay method for theDimension chemistry system. Values obtained with differentassay methods cannot be used interchangably.When changing PSA assays in the course of monitoring apatient, additional sequential testing should be carriedout to confirm baseline values. [facility] Udjq[address] [place], [place], [address] Blood Glucose , Office ([phone])Ordered By: Valentina Lamb on 07-08-2015 Glucose Glucometer molar conc (BldC) 166 1 Normal [facility] Work Phone: HgA1C , Office ([phone])Ordere d By: Isabelle Patiño on 07-08-2015 Hemoglobin A1c/Hemoglobin.total mass fraction (Bld) 6.6 % Normal 4.6 - 7.1 Comprehensiv e Internal Medicine Work Phone: CALCIFIDIOL ([phone]) VIT D 25 Ordered By: Client Advisor on 06-05-2015 25-Hydroxyvitamin D2+25-Hydroxyvitamin D3 mass conc 84.0 ng/mL Normal 30.0-100.0 [facility] Work Phone: Comment on above: Vitamin D deficiency has been defined by the [place] of[place]icine and an Endocrine Society practice guideline as alevel of serum 25-OH vitamin D less than 20 ng/mL (1,2).The Endocrine Society went on to further define vitamin Dinsufficiency as a level between 21 and 29 ng/mL (2).1. IOM ([place] of Medicine). 2010. Dietary reference intakes for calcium and D. [place]: The National Academies Press.2. Tahmina MF, Gabriela OVALLES, Becki GILBERT, et al. Evaluation, treatment, and prevention of vitamin D deficiency: an Endocrine Society clinical practice guideline. JCEM. 2010; 96(7):1911-30. PATIENT WAS FASTINGP ERFORMED BY: [employer]70 Nanofactory InstrumentsUNC Health Blue Ridge [id number] CBC W/AUTO DIFF WBC ([id number])O rdered By: Client Advisor on 06-05-2015 Basophils #/vol (Bld) 0.0 {x10E3/uL} Normal 0.0-0.2 [facility] Work Phone: Comment on above: PATIENT WAS FASTINGP ERFORMED BY: [employer]70 [employer]ofactory InstrumentsUNC Health Blue Ridge [id number] Information: [id number] Basophils (Bld) [#/Vol] 0.0 10*3/uL Normal 0.0-0.2 [facility]; [facility] Work Phone: Basophils Auto #/vol (Bld) 0.0 {x10E3/uL} Normal 0.0-0.2 [facility] Work Phone: Basophils/100 WBC (Bld) 0 % Normal [facility] Work Phone: Comment on above: PATIENT WAS FASTINGP ERFORMED BY: MD Lingo6370 [address] 5211gameBlue Ridge Regional Hospital [id number] Information: [id number] Basophils/100 WBC Auto (Bld) 0 % Normal [facility] Work Phone: Eosinophils #/vol (Bld) 0.1 {x10E3/uL} Normal 0.0-0.4 [facility] Work Phone: Comment on above: PATIENT WAS FASTINGP ERFORMED BY: [employer]70 [facility] [id number] Information: [id number] Eosinophils (Bld) [#/Vol] 0.1 10*3/uL Normal 0.0-0.4 [facility]; [facility] Work Phone: Eosinophils Auto #/vol (Bld) 0.1 {x10E3/uL} Normal 0.0-0.4 [facility] Work Phone: Eosinophils/100 WBC (Bld) 1 % Normal [facility] Work Phone: Comment on above: PATIENT WAS FASTINGP ERFORMED BY: CIERRA [address] [id number] Information: [id number] Eosinophils/100 WBC Auto (Bld) 1 % Normal [facility] Work Phone: Erythrocyte distribution width Auto Ratio (RBC) 13.6 % Normal 12.3-15.4 [facility] Work Phone: Erythrocyte distribution width Ratio (RBC) 13.6 % Normal 12.3-15.4 [facility] Work Phone: Comment on above: PATIENT WAS FASTINGP ERFORMED BY: [address] [id number] Information: [id number] Hematocrit Auto Volume Fraction (Bld) 40.7 % Normal 37.5-51.0 [facility] Internal Medicine Work Phone: Hematocrit Volume Fraction (Bld) 40.7 % Normal 37.5-51.0 [facility] Internal Medicine Work Phone: Comment on above: PATIENT WAS FASTINGP ERFORMED BY: CIERRA [place] [id number] [facility] [id number] Information: [id number] Hemoglobin mass conc (Bld) 13.5 g/dL Normal 12.6-17.7 [facility] Work Phone: Comment on above: PATIENT WAS FASTINGP ERFORMED BY: [address] StreetDublin [place] [id number] Information: [id number] Immature granulocytes #/vol (Bld) 0.0 {x10E3/uL} Normal 0.0-0.1 [facility] Work Phone: Comment on above: PATIENT WAS FASTINGP ERFORMED BY: [place] [id number] [facility] [id number] Information: [id number] Immature granulocytes (Bld) [#/Vol] 0.0 10*3/uL Normal 0.0-0.1 [facility]; [facility] Work Phone: Immature granulocytes/100 WBC (Bld) 0 % Normal [facility] Work Phone: Comment on above: PATIENT WAS FASTINGP ERFORMED BY: [address] [id number] Information: [id number] Lymphocytes #/vol (Bld) 1.4 {x10E3/uL} Normal 0.7-3.1 [facility] Work Phone: Comment on above: PATIENT WAS FASTINGP ERFORMED BY: [address] [id number] Information: [id number] Lymphocytes (Bld) [#/Vol] 1.4 10*3/uL Normal 0.7-3.1 [facility]; [facility] Work Phone: Lymphocytes Auto #/vol (Bld) 1.4 {x10E3/uL} Normal 0.7-3.1 [facility] Work Phone: Lymphocytes/100 WBC (Bld) 15 % Normal [facility] Work Phone: Comment on above: PATIENT WAS FASTINGP ERFORMED BY: [place] [id number] [facility] [id number] Information: [id number] Lymphocytes/100 WBC Auto (Bld) 15 % Normal [facility] Work Phone: MCH Auto Entitic mass (RBC) 30.4 pg Normal 26.6-33.0 [facility] Work Phone: MCH Entitic mass (RBC) 30.4 pg Normal 26.6-33.0 [facility] Work Phone: Comment on above: PATIENT WAS FASTINGP ERFORMED BY: [facility] HospitalWelliko[address] [id number] Information: [id number] MCHC Auto mass conc (RBC) 33.2 g/dL Normal 31.5-35.7 [facility] Work Phone: MCHC mass conc (RBC) 33.2 g/dL Normal 31.5-35.7 Comp [facility] Internal Medicine Work Phone: Comment on above: PATIENT WAS FASTINGP ERFORMED BY: [facility] HospitalWelliko[address] [id number] Information: [id number] MCV Auto Entitic volume (RBC) 92 fL Normal 79-97 [facility] Work Phone: MCV Entitic volume (RBC) 92 fL Normal 79-97 [facility] Work Phone: Comment on above: PATIENT WAS FASTINGP ERFORMED BY: Raw[employer] [id number] Information: [id number] Monocytes #/vol (Bld) 0.5 {x10E3/uL} Normal 0.1-0.9 [facility] Work Phone: Comment on above: PATIENT WAS FASTINGP ERFORMED BY: [facility]6370 [facility] [id number] Information: [id number] Monocytes (Bld) [#/Vol] 0.5 10*3/uL Normal 0.1-0.9 [facility]; [facility] Work Phone: Monocytes Auto #/vol (Bld) 0.5 {x10E3/uL} Normal 0.1-0.9 [facility] Work Phone: Monocytes/100 WBC (Bld) 6 % Normal [facility] Work Phone: Comment on above: PATIENT WAS FASTINGP ERFORMED BY: CIERRA Shieldslin6370 [facility] [id number] Information: [id number] Monocytes/100 WBC Auto (Bld) 6 % Normal [facility] Work Phone: Neutrophils #/vol (Bld) 7.0 {x10E3/uL} Normal 1.4-7.0 [facility] Work Phone: Comment on above: PATIENT WAS FASTINGP ERFORMED BY: CIERRA Shieldslin6370 [facility] [id number] Information: [id number] Neutrophils (Bld) [#/Vol] 7.0 10*3/uL Normal 1.4-7.0 [facility]; [facility] Work Phone: Neutrophils Auto #/vol (Bld) 7.0 {x10E3/uL} Normal 1.4-7.0 [facility] Work Phone: Neutrophils/100 WBC (Bld) 78 % Normal [facility] Work Phone: Comment on above: PATIENT WAS FASTINGP ERFORMED BY: CIERRA Shieldslin6370 [facility] [id number] Information: [id number] Neutrophils/100 WBC Auto (Bld) 78 % Normal [facility] Work Phone: Platelets #/vol (Bld) 180 {x10E3/uL} Normal 150-379 [facility] Work Phone: Comment on above: PATIENT WAS FASTINGP ERFORMED BY: CIERRA Shieldslin6370 [facility] [id number] Information: [id number] Platelets (Bld) [#/Vol] 180 10*3/uL Normal 150-379 [facility]; [facility] Work Phone: Platelets Auto #/vol (Bld) 180 {x10E3/uL} Normal 150-379 [facility] Work Phone: RBC #/vol (Bld) 4.44 {x10E6/uL} Normal 4.14-5.80 Comp [facility] Work Phone: Comment on above: PATIENT WAS FASTINGP ERFORMED BY: [employer]6370 [facility] [id number] Information: [id number] RBC (Bld) [#/Vol] 4.44 10*6/uL Normal 4.14-5.80 Compr [facility] Internal Medicine; [facility] Work Phone: RBC Auto #/vol (Bld) 4.44 {x10E6/uL} Normal 4.14-5.80 [facility] Work Phone: WBC #/vol (Bld) 9.0 {x10E3/uL} Normal 3.4-10.8 [facility] Internal Medicine Work Phone: Comment on above: PATIENT WAS FASTINGP ERFORMED BY: MD Lingo6370 [facility] [id number] Information: [id number] WBC (Bld) [#/Vol] 9.0 10*3/uL Normal 3.4-10.8 Compre [facility] Internal Medicine; [facility] Work Phone: WBC Auto #/vol (Bld) 9.0 {x10E3/uL} Normal 3.4-10.8 [facility] Work Phone: LIPID PANEL ([id number])Ordered B y: Client Advisor on 06-05-2015 Cholesterol in HDL mass conc 36 mg/dL Abnormal [facility] Work Phone: Comment on above: According to ATP-III Guidelines, HDL-C >59 mg/dL is considered anegative risk factor for CHD. PATIENT WAS FASTINGP ERFORMED BY: MD Lingo6370 [facility] [id number] Cholesterol in LDL mass conc 61 mg/dL Normal 0-99 [facility] Work Phone: Comment on above: PATIENT WAS FASTINGP ERFORMED BY: CIERRA Ellis6370 [facility] [id number] Cholesterol in LDL/Cholesterol in HDL mass ratio 1.7 {ratio_units} Normal 0.0-3.6 [facility] Work Phone: Comment on above: LDL/HDL Ratio Men Wo men 1/2 Avg.Risk 1.0 1.5 Avg.Risk 3.6 3.2 2X Avg.Risk 6.2 5.0 3X Avg.Risk 8.0 6.1 PATIENT WAS FASTINGP ERFORMED BY: CIERRA Ellis6370 [facility] [id number] Cholesterol in VLDL mass conc 13 mg/dL Normal 5-40 [facility] Work Phone: Comment on above: PATIENT WAS FASTINGP ERFORMED BY: CIERRA Ellis6370 [facility] [id number] Cholesterol mass conc 110 mg/dL Normal 100-199 [facility] prehensive Internal Medicine Work Phone: Comment on above: PATIENT WAS FASTINGP ERFORMED BY: CIERRA Ellis6370 [facility] [id number] Triglyceride mass conc 64 mg/dL Normal 0-149 [facility] Work Phone: Comment on above: PATIENT WAS FASTINGP ERFORMED BY: CIERRA Ellis6370 [facility] [id number] METABOLIC PANEL, COMPREHENSI VE ([id number])Ordered By: Client Advisor on 06-05-2015 Albumin mass conc 4.0 g/dL Normal 3.5-4.8 Compreh ensive Internal Medicine Work Phone: Comment on above: PATIENT WAS FASTINGP ERFORMED BY: CIERRA Shieldslin6370 [facility] [id number] Albumin/Globulin mass ratio 1.7 {ratio} Normal 1.1-2.5 [facility] Work Phone: Comment on above: PATIENT WAS FASTINGP ERFORMED BY: CIERRA Shieldslin6370 [address] [facility] [place] [id number] ALP [Catalytic activity/Vol] 110 U/L Normal 39-117 [facility]; [facility] Internal Medicine Work Phone: ALP enzyme act/vol 110 [iU]/L Normal 39-117 [facility] Internal Medicine Work Phone: Comment on above: PATIENT WAS FASTINGP ERFORMED BY: CIERRA Barajas Bmzhwj5899 [address] [facility] Center[facility] [place] [id number] ALT [Catalytic activity/Vol] 15 U/L Normal 0-44 [facility]; [facility] Internal Medicine Work Phone: ALT enzyme act/vol 15 [iU]/L Normal 0-44 [facility] Internal Medicine Work Phone: Comment on above: PATIENT WAS FASTINGP ERFORMED BY: CIERRA Shieldslin6370 [facility] [id number] AST [Catalytic activity/Vol] 21 U/L Normal 0-40 [facility]; [facility] Internal Medicine Work Phone: AST enzyme act/vol 21 [iU]/L Normal 0-40 [facility] Internal Medicine Work Phone: Comment on above: PATIENT WAS FASTINGP ERFORMED BY: CIERRA Shieldslin6370 [facility] [id number] Bilirubin mass conc 1.0 mg/dL Normal 0.0-1.2 Compr [facility] Internal Medicine Work Phone: Comment on above: PATIENT WAS FASTINGP ERFORMED BY: CIERRA [facility]amaHedrick [facility] Center Peybwg5257 [facility] [id number] Calcium mass conc 9.1 mg/dL Normal 8.6-10.2 Compreh [facility] Internal Medicine Work Phone: Comment on above: PATIENT WAS FASTINGP ERFORMED BY: CIERRA Barajas Ubctju3484 [facility] [id number] Chloride molar conc 106 mmol/L Normal 97-108 Compr [facility] Internal Medicine Work Phone: Comment on above: PATIENT WAS FASTINGP ERFORMED BY: CIERRA Barajas Uparjv3590 [facility] [id number] CO2 molar conc 21 mmol/L Normal 18-29 Comprehens shawn Internal Medicine Work Phone: Comment on above: PATIENT WAS FASTINGP ERFORMED BY: CIERRA [employer] Nvzvmn0500 [facility] [id number] Creatinine mass conc 0.95 mg/dL Normal 0.76-1.27 Comp rehensive Internal Medicine Work Phone: Comment on above: PATIENT WAS FASTINGP ERFORMED BY: CIERRA LabCoAstra Health CenterOpgikb4206 [facility] [id number] GFR/1.73 sq M predicted among blacks CKD-EPI vol rate/area (S/P/Bld) 88 mL/min/1.73 Normal Comprehensiv e Internal Medicine Work Phone: Comment on above: PATIENT WAS FASTINGP ERFORMED BY: CIERRA LabHedrick Medical Center Sjgbsl3846 [facility] [id number] GFR/1.73 sq M predicted among non-blacks CKD-EPI vol rate/area (S/P/Bld) 76 mL/min/1.73 Normal [facility] Work Phone: Comment on above: PATIENT WAS FASTINGP ERFORMED BY: CIERRA TejaHedrick Medical Center Meelxp7889 [facility] [id number] Globulin Calculated mass conc (S) 2.4 g/dL Normal 1.5-4.5 [facility] Work Phone: Globulin mass conc (S) 2.4 g/dL Normal 1.5-4.5 [facility] Work Phone: Comment on above: PATIENT WAS FASTINGP ERFORMED BY: CIERRA [employer] Dqavjn8980 [facility] [id number] Glucose mass conc 108 mg/dL Abnormal 65-99 Compreh ensive Internal Medicine Work Phone: Comment on above: PATIENT WAS FASTINGP ERFORMED BY: CIERRA [employer] Ceatgk9212 [facility] [id number] Potassium molar conc 4.7 mmol/L Normal 3.5-5.2 Comp rehensive Internal Medicine Work Phone: Comment on above: PATIENT WAS FASTINGP ERFORMED BY: CIERRA Alicia Ellis6370 [address] 5211gameBlue Ridge Regional Hospital [id number] Protein mass conc 6.4 g/dL Normal 6.0-8.5 Compreh ensive Internal Medicine Work Phone: Comment on above: PATIENT WAS FASTINGP ERFORMED BY: CIRERA Alicia Ellis6370 [facility] [id number] Sodium molar conc 143 mmol/L Normal 134-144 Compreh ensive Internal Medicine Work Phone: Comment on above: PATIENT WAS FASTINGP ERFORMED BY: CIERRA Jenncheri ShieldsSpkhnt5350 [facility] [id number] Urea nitrogen mass conc 12 mg/dL Normal 8-27 [facility] Work Phone: Comment on above: PATIENT WAS FASTINGP ERFORMED BY: CIERRA Jenncheri ShieldsGubfex2898 [facility] [id number] Urea nitrogen/Creatinine mass ratio 13 mg/mg Normal 10-22 [facility] Work Phone: Comment on above: PATIENT WAS FASTINGP ERFORMED BY: CIERRA TejaTierra ShieldsGmegaw8162 [facility] [id number] MICROALBUMINOrdered By: Syst em Environmental Services Lead on 06-05-2015 Albumin DL <= 20 mg/L mass conc (U) 25.0 ug/mL Abnormal 0.0-17.0 [facility] Work Phone: Comment on above: PATIENT WAS FASTINGP ERFORMED BY: CIERRA Jenn Irkpvp4629 [address] [facility] [place] [id number] Albumin/Creatinine mass ratio (U) 15.0 {mg/g_creat} Normal 0.0-30.0 [facility] Work Phone: Comment on above: PATIENT WAS FASTINGP ERFORMED BY: CIERRA TejaTierra Jrdzad4225 [address] [facility] [id number] Creatinine mass conc (U) 166.4 mg/dL Normal 22.0-328.0 [facility] Work Phone: Comment on above: PATIENT WAS FASTINGP ERFORMED BY: CIERRA [facility] Yxelhw6465 Khoury RoadDublin [place] [id number] Microscopic ExaminationOrder ed By: Client Advisor on 06-05-2015 Bacteria LM.HPF #/area (Urine sed) None seen Normal [facility] Work Phone: Comment on above: PATIENT WAS FASTINGP ERFORMED BY: CB [facility] Wgtciu6090 [address]houry RoadDublin [place] [id number] Epithelial cells LM.HPF #/area (Urine sed) 0-10 Normal 0 - 10 [facility] Work Phone: Comment on above: PATIENT WAS FASTINGP ERFORMED BY: CIERRA [facility] Ezsykn1674 Khoury RoadDublin [place] [id number] Mucus LM Ql (Urine sed) Present Normal [facility] Work Phone: Mucus Ql (Urine sed) Present Normal Comp rehensive Internal Medicine Work Phone: Comment on above: PATIENT WAS FASTINGP ERFORMED BY: CIERRA [facility] Ejopyy7685 Khoury RoadDublin [place] [id number] RBC LM.HPF #/area (Urine sed) 0-2 Normal 0 - 2 [facility] Work Phone: Comment on above: PATIENT WAS FASTINGP ERFORMED BY: CIERRA [facility] Cprysr4096 K[address] RoadDublin [place] [id number] WBC LM.HPF #/area (Urine sed) 0-5 Normal 0 - 5 [facility] Work Phone: Comment on above: PATIENT WAS FASTINGP ERFORMED BY: CIERRA [facility] Zzhins3561 Khoury RoadDublin [place] [id number] TSH ([id number])Ordered By: Delma m Environmental Services Lead on 06-05-2015 Thyrotropin Qn 1.580 {uIU/mL} Normal 0.450-4.50 0 [facility] Work Phone: Comment on above: PATIENT WAS FASTINGP ERFORMED BY: CB [facility] Aqjlce2587 Khoury RoadDublin [place] [id number] URINALYSIS, W/ MICRO ([id number]) Ordered By: Client Advisor on 06-05-2015 Appearance Nom (U) Clear Normal Compre hensive Internal Medicine Work Phone: Comment on above: PATIENT WAS FASTINGP ERFORMED BY: CIERRA LabTierra ShieldsAhunwt9757 Khoury RoadDublin [place] [id number] Bilirubin Ql (U) Negative Normal Comprehe nsive Internal Medicine Work Phone: Comment on above: PATIENT WAS FASTINGP ERFORMED BY: CIERRA LabTierra ShieldsSjlbtw5176 Khoury RoadDublin [place] [id number] Bilirubin Ql (U) Negative Normal Comprehe nsive Internal Medicine; [facility] Work Phone: Color Nom (U) Yellow Normal Comprehensi ve Internal Medicine Work Phone: Comment on above: PATIENT WAS FASTINGP ERFORMED BY: CIERRA Shieldslin6370 [address] RoadDublin [place] [id number] Glucose Ql (U) Negative Normal Comprehens shawn Internal Medicine Work Phone: Comment on above: PATIENT WAS FASTINGP ERFORMED BY: CIERRA LabTierra ShieldsKckuyi3446 Khoury RoadDublin [place] [id number] Glucose Ql (U) Negative Normal Comprehens shawn Internal Medicine; [facility] Work Phone: Hemoglobin Ql (U) Negative Normal Compreh ensive Internal Medicine Work Phone: Comment on above: PATIENT WAS FASTINGP ERFORMED BY: CIERRA LabTierra ShieldsNxdixa8984 K[address] RoadDublin [place] [id number] Hemoglobin Ql (U) Negative Normal Compreh ensive Internal Medicine; [facility] Work Phone: Hemoglobin Test strip Ql (U) Negative Normal [facility] Work Phone: Ketones Ql (U) Negative Normal Comprehens shawn Internal Medicine Work Phone: Comment on above: PATIENT WAS FASTINGP ERFORMED BY: CIERRA LabTierra ShieldsErcago9965 [address] RoadDublin [place] [id number] Ketones Ql (U) Negative Normal Comprehens shawn Internal Medicine; [facility] Work Phone: Leukocyte esterase Test strip Ql (U) Negative Normal [facility] Work Phone: Comment on above: PATIENT WAS FASTINGP ERFORMED BY: CIERRA LabCocheri ShieldsKqmsum8792 K[address] RoadDublin [place] [id number] Leukocyte esterase Test strip Ql (U) Negative Normal [facility]; [facility] Work Phone: Microscopic observation LM Nom (Urine sed) MICRON Normal [facility] Work Phone: Comment on above: Microscopic follows if indicated. PATIENT WAS FASTINGP ERFORMED BY: CIERRA [facility] Sropqm2397 K[address]y RoadDublin [place] [id number] Microscopic observation LM Nom (Urine sed) See below: Normal [facility] Work Phone: Comment on above: Microscopic was sander cated and was performed. PATIENT WAS FASTINGP ERFORMED BY: CIERRA LabTierra ShieldsHkzvqj0355 Khoury RoadDublin [place] [id number] Nitrite Ql (U) Negative Normal Comprehens shawn Internal Medicine Work Phone: Comment on above: PATIENT WAS FASTINGP ERFORMED BY: CIERRA LabTierra ShieldsFjmwfa0333 Khoury RoadDublin [place] [id number] Nitrite Ql (U) Negative Normal Comprehens shawn Internal Medicine; [facility] Work Phone: Nitrite Test strip Ql (U) Negative Normal [facility] Work Phone: pH (U) 6.5 [pH] Normal 5.0-7.5 [facility] Work Phone: Comment on above: PATIENT WAS FASTINGP ERFORMED BY: CIERRA [facility] Jzpogu1570 K[address]y RoadDublin [place] [id number] pH Test strip (U) 6.5 [pH] Normal 5.0-7.5 Compreh ensive Internal Medicine Work Phone: Protein Ql (U) Negative Normal Comprehens shawn Internal Medicine Work Phone: Comment on above: PATIENT WAS FASTINGP ERFORMED BY: CIERRA [facility] Kgqecj9179 [address]y RoadDublin [place] [id number] Protein Ql (U) Negative Normal Comprehens shawn Internal Medicine; Comprehensive Internal Medicine Work Phone: Protein Test strip Ql (U) Negative Normal [facility] Work Phone: Specific gravity Relative Density (U) 1.025 1 Normal 1.005-1.03 0 [facility] Work Phone: Comment on above: PATIENT WAS FASTINGP ERFORMED BY: MD Lingo6370 [facility] [id number] Urobilinogen (U) [Mass/Vol] 1.0 mg/dL Normal 0.0-1.9 [facility]; [facility] Work Phone: Urobilinogen Test strip mass conc (U) 1.0 mg/dL Normal 0.0-1.9 Comprehensiv e Internal Medicine Work Phone: Comment on above: PATIENT WAS FASTINGP ERFORMED BY: MD Lingo6370 Nanofactory InstrumentsUNC Health Blue Ridge [id number] Blood Glucose , Office (8296 2)Ordered By: Richelle Campos on 04-10-2015 Glucose Glucometer molar conc (BldC) 127 1 Normal [facility] Work Phone: HgA1C , Office ([phone])Ordere d By: Richelle Campos on 04-10-2015 Hemoglobin A1c/Hemoglobin.total mass fraction (Bld) 6.2 % Normal 4.6 - 7.1 Comprehensiv e Internal Medicine Work Phone: Pathology ReportOrdered By: Client Advisor on 01-24-2015 See Note MATER Normal [facility] Work Phone: Comment on above: Material submitted: .UPPER LIP AREA PUNCH BIOPSYClinician provided ICD-9:238.2 ; Neoplasm of uncertain behavior of skinClinical history: .MARGINS FALSERED NEW IRREG MARGINS BORDERS Diagnosis:PUNCH BIOPSY WITH DILATED FOLLICLE, FOCAL EPIDERMAL THINNINGASSOCIATED WITH RETE PEG EFFACEMENT AND SQUAMOUS DISARRAYOVERLYING TELANGIECTASIA AND MILD PERIVASCULAR LYMPHOPLASMACYTICINFILTRATE, SEE COMMENT BELOW..COMMENT:THE CHANGES SEEN IN THIS BIOPSY SPECIMEN ARE NOT TOTALLYDIAGNOSTIC. THESE FEATURES COULD REPRESENT AN EARLY ACTINICKERATOSIS OCCURRING IN AN AREA OF SUN DAMAGE ASSOCIATED WITHTELANGIECTASIA AND FOLLICULAR DILATATION MAY BE SEEN WITH ALESION OF ROSACEA. WITH THE SUBTLE BASEMENT MEMBRANE ALTERATIONNOTED, I DID ALSO CONSIDER A QUIESCENT LESION OF A COLLAGENVASCULAR DISEASE SUCH LUPUS ERYTHEMATOSUS, THOUGH THIS IS LESSFAVORED. CORRELATION WITH CLINICAL FINDINGS AND SEROLOGIC STUDIESIS RECOMMENDED FOR FURTHER DIAGNOSTIC CLASSIFICATION. THERE IS NOEVIDENCE OF MALIGNANCY IN THESE SECTIONS.MARU/01/28/2015 Electronically signed: .Karina Khan MD, DermatopathologistGross description: .RECEIVED IN FORMALIN LABELED SKYLER SANTOS DESIGNATED UPPER LIP MADONNA SORENSEN YELLOW PUNCH BIOPSY MEASURING 0.2 X 0.2 X 0.2 CM. THEMARGIN IS MARKED WITH BLUE INK. IT IS SUBMITTED INTACT IN ASINGLE CASSETTE.LMS/LEOMicroscopic: .SECTIONS OF THIS PUNCH BIOPSY EXHIBIT EPIDERMAL THINNING WITHEFFACEMENT OF RETE PEGS, SLIGHT HYPERKERATOSIS AND A DILATEDFOLLICULAR OSTIUM. THERE IS SOME THICKENING OF THE BASEMENTMEMBRANE WITH MILD BASAL LAYER SQUAMOUS DISARRAY FOCALLY.TELANGIECTASIA IS SEEN IN THE UPPERMOST DERMIS ALONG WITHPROMINENT SOLAR ELASTOSIS AND A PERIVASCULAR INFILTRATE COMPOSEDOF LYMPHOCYTES AND A FEW PLASMA CELLS. NO SIGNIFICANT DEEPINFLAMMATION IS APPRECIATED. NO DERMAL MUCIN DEPOSITION ISIDENTIFIED ON ROUTINELY STAINED SECTIONS.Pathologist provided ICD-9:709.8CPT .873000 PERFORMED BY: INGRIS [facility] [place] Cyto Rxyxx19636 [facility] [id number] BY: [facility] Dermatopathology Bqtqxwf[address] [id number] BY: SEBASTIEN [facility] Urefxpudk281 [facility] [id number] Information: [id number] Blood Glucose , Office ([phone] 2)Ordered By: Richelle Campos on 01-09-2015 Glucose Glucometer molar conc (BldC) 185 1 Normal [facility] Work Phone: HgA1C , Office ([phone])Ordere d By: Richelle Campos on 01-09-2015 Hemoglobin A1c/Hemoglobin.total mass fraction (Bld) 6.4 % Normal 4.6 - 7.1 Comprehensiv e Internal Medicine Work Phone: PSA,Total - Annual ScreenOrd ered By: Client Advisor on 10-31-2014 PSA,Total - Annual Screen 0.37 ng/mL Normal 0.00-4.00 [facility] Work Phone: Comment on above: This test was perfor med using the TPSA assay method for UC CEIN chemistry system. Values obtained with differentassay methods cannot be used interchangably.When changing PSA assays in the course of monitoring apatient, additional sequential testing should be carriedout to confirm baseline values. Test performed at:[facility] Clyhfysobd[address] Armando [place], [place] [address] Hemoglobin Glyclated (HGB A1 C) (50059)Ordered By: Client Advisor on 10-10-2014 Hemoglobin A1c/Hemoglobin.total mass fraction (Bld) 6.6 % Abnormal 4.8-5.6 Comprehensiv e Internal Medicine Work Phone: Comment on above: . Increased risk for diabetes: 5.7 - 6.4 Diabetes: >6.4 Glycemic control for adults with diabetes: <7.0 PATIENT NOT FASTINGP ERFORMED BY: [facility] Azvftj8141 [facility] [id number] Information: [id number] Pathology ReportOrdered By: Client Advisor on 07-16-2014 See Note MATER Normal [facility] Work Phone: Comment on above: Material submitted: .CHEST WALL SHAVE BXClinician provided ICD-9:238.2 ; Neoplasm of uncertain behavior of skinClinical history: .MARGINS FALSE RED BASE RAISED IRREG BORDERS Diagnosis:IRRITATED AND INFLAMED VERRUCA..COMMENT:EDGES UNINVOLVED.TMZ/07/18/2014 Electronically signed: .Karina Khan MD, DermatopathologistGross description: .RECEIVED IS A CONTAINER LABELED SKYLER SANTOS DESIGNATED CHESTWALL. IN FORMALIN IS A SORENSEN TISSUE MEASURING 6.0 X 6.0 X 2.0 MM.IT IS INKED YELLOW, TRISECTED, AND ALL THREE SECTIONS ARESUBMITTED IN A SINGLE CASSETTE.COR/JASPathologist provided ICD-9:078.10CPT .406758 PERFORMED BY: KWCYT [facility] [place] [facility]to Vvqqq03310 [facility] [id number] BY: [facility] Dermatopathology Obvcoup[address] [id number] Information: [id number] Blood Glucose , Office (4133 2)Ordered By: Valentina Lamb on 07-05-2014 Glucose Glucometer molar conc (BldC) 107 1 Normal [facility] Work Phone: HgA1C , Office (12091)Ordere d By: Valentina Lamb on 07-05-2014 Hemoglobin A1c/Hemoglobin.total mass fraction (Bld) 6.6 % Normal 4.6 - 7.1 Comprehensiv e Internal Medicine Work Phone: Blood Glucose , Office ([phone] 2)Ordered By: Marilynn Chanel on 04-04-2014 Glucose Glucometer molar conc (BldC) 159 1 Normal [facility] Work Phone: HgA1C , Office (38715)Ordere d By: Marilynn Chanel on 04-04-2014 Hemoglobin A1c/Hemoglobin.total mass fraction (Bld) 6.5 % Normal 4.6 - 7.1 Comprehensiv e Internal Medicine Work Phone: CBC WITH MANUAL DIFF ([phone]) Ordered By: Client Advisor on 01-04-2014 Basophils #/vol (Bld) 0.0 {x10E3/uL} Normal 0.0-0.2 [facility] Work Phone: Comment on above: PATIENT WAS FASTINGP ERFORMED BY: [employer] [facility] [id number] Information: [id number] Basophils (Bld) [#/Vol] 0.0 10*3/uL Normal 0.0-0.2 [facility]; [facility] Work Phone: Basophils Auto #/vol (Bld) 0.0 {x10E3/uL} Normal 0.0-0.2 [facility] Work Phone: Basophils/100 WBC (Bld) 0 % Normal 0-3 [facility] Work Phone: Comment on above: PATIENT WAS FASTINGP ERFORMED BY: [employer]70 [facility] [id number] Information: [id number] Basophils/100 WBC Auto (Bld) 0 % Normal 0-3 [facility] Work Phone: Eosinophils #/vol (Bld) 0.2 {x10E3/uL} Normal 0.0-0.4 [facility] Work Phone: Comment on above: PATIENT WAS FASTINGP ERFORMED BY: [employer]6370 [facility] [id number] Information: [id number] Eosinophils (Bld) [#/Vol] 0.2 10*3/uL Normal 0.0-0.4 [facility]; [facility] Work Phone: Eosinophils Auto #/vol (Bld) 0.2 {x10E3/uL} Normal 0.0-0.4 [facility] Work Phone: Eosinophils/100 WBC (Bld) 2 % Normal 0-5 [facility] Work Phone: Comment on above: PATIENT WAS FASTINGP ERFORMED BY: CIERRA [address] [id number] Information: [id number] Eosinophils/100 WBC Auto (Bld) 2 % Normal 0-5 [facility] Work Phone: Erythrocyte distribution width Auto Ratio (RBC) 14.1 % Normal 12.3-15.4 [facility] Work Phone: Erythrocyte distribution width Ratio (RBC) 14.1 % Normal 12.3-15.4 [facility] Work Phone: Comment on above: PATIENT WAS FASTINGP ERFORMED BY: CIERRA [address] [id number] Information: [id number] Hematocrit Auto Volume Fraction (Bld) 40.5 % Normal 37.5-51.0 [facility] Internal Medicine Work Phone: Hematocrit Volume Fraction (Bld) 40.5 % Normal 37.5-51.0 [facility] Work Phone: Comment on above: PATIENT WAS FASTINGP ERFORMED BY: CIERRA [address] [id number] Information: [id number] Hemoglobin mass conc (Bld) 13.6 g/dL Normal 12.6-17.7 [facility] Work Phone: Comment on above: PATIENT WAS FASTINGP ERFORMED BY: [address] [id number] Information: [id number] Immature granulocytes #/vol (Bld) 0.0 {x10E3/uL} Normal 0.0-0.1 [facility] Work Phone: Comment on above: PATIENT WAS FASTINGP ERFORMED BY: [facility]6370 [facility] [id number] Information: [id number] Immature granulocytes (Bld) [#/Vol] 0.0 10*3/uL Normal 0.0-0.1 [facility]; [facility] Work Phone: Immature granulocytes/100 WBC (Bld) 0 % Normal 0-2 [facility] Work Phone: Comment on above: PATIENT WAS FASTINGP ERFORMED BY: [place] [id number] [facility] [id number] Information: [id number] Lymphocytes #/vol (Bld) 1.6 {x10E3/uL} Normal 0.7-3.1 [facility] Work Phone: Comment on above: PATIENT WAS FASTINGP ERFORMED BY: [place] 7228270 [facility] [id number] Information: [id number] Lymphocytes (Bld) [#/Vol] 1.6 10*3/uL Normal 0.7-3.1 [facility]; [facility] Work Phone: Lymphocytes Auto #/vol (Bld) 1.6 {x10E3/uL} Normal 0.7-3.1 [facility] Work Phone: Lymphocytes/100 WBC (Bld) 20 % Normal - [facility] Work Phone: Comment on above: PATIENT WAS FASTINGP ERFORMED BY: [facility]6370 [facility] [id number] Information: [id number] Lymphocytes/100 WBC Auto (Bld) 20 % Normal 14-46 [facility] Work Phone: MCH Auto Entitic mass (RBC) 29.7 pg Normal 26.6-33.0 [facility] Work Phone: MCH Entitic mass (RBC) 29.7 pg Normal 26.6-33.0 [facility] Work Phone: Comment on above: PATIENT WAS FASTINGP ERFORMED BY: CIERRA [place] 0459770 [facility] [id number] Information: [id number] MCHC Auto mass conc (RBC) 33.6 g/dL Normal 31.5-35.7 [facility] Work Phone: MCHC mass conc (RBC) 33.6 g/dL Normal 31.5-35.7 Comp [facility] Internal Medicine Work Phone: Comment on above: PATIENT WAS FASTINGP ERFORMED BY: CIERRA [address] [id number] Information: [id number] MCV Auto Entitic volume (RBC) 88 fL Normal 79-97 [facility] Work Phone: MCV Entitic volume (RBC) 88 fL Normal 79-97 [facility] Work Phone: Comment on above: PATIENT WAS FASTINGP ERFORMED BY: CIERRA [place] 0459770 [facility] [id number] Information: [id number] Monocytes #/vol (Bld) 0.5 {x10E3/uL} Normal 0.1-0.9 [facility] Work Phone: Comment on above: PATIENT WAS FASTINGP ERFORMED BY: [place] 7228270 [facility] [id number] Information: [id number] Monocytes (Bld) [#/Vol] 0.5 10*3/uL Normal 0.1-0.9 [facility]; [facility] Work Phone: Monocytes Auto #/vol (Bld) 0.5 {x10E3/uL} Normal 0.1-0.9 [facility] Work Phone: Monocytes/100 WBC (Bld) 6 % Normal 4-12 [facility] Work Phone: Comment on above: PATIENT WAS FASTINGP ERFORMED BY: [facility]6370 [facility] [id number] Information: [id number] Monocytes/100 WBC Auto (Bld) 6 % Normal 4-12 [facility] Work Phone: Neutrophils #/vol (Bld) 5.6 {x10E3/uL} Normal 1.4-7.0 [facility] Work Phone: Comment on above: PATIENT WAS FASTINGP ERFORMED BY: [facility]6370 [facility] [id number] Information: [id number] Neutrophils (Bld) [#/Vol] 5.6 10*3/uL Normal 1.4-7.0 [facility]; [facility] Work Phone: Neutrophils Auto #/vol (Bld) 5.6 {x10E3/uL} Normal 1.4-7.0 [facility] Work Phone: Neutrophils/100 WBC (Bld) 72 % Normal 40-74 [facility] Work Phone: Comment on above: PATIENT WAS FASTINGP ERFORMED BY: [facility]6370 [facility] [id number] Information: [id number] Neutrophils/100 WBC Auto (Bld) 72 % Normal 40-74 [facility] Work Phone: Platelets #/vol (Bld) 176 {x10E3/uL} Normal 155-379 [facility] Work Phone: Comment on above: PATIENT WAS FASTINGP ERFORMED BY: [facility]6370 [facility] [id number] Information: [id number] Platelets (Bld) [#/Vol] 176 10*3/uL Normal 155-379 [facility]; [facility] Work Phone: Platelets Auto #/vol (Bld) 176 {x10E3/uL} Normal 155-379 [facility] Work Phone: RBC #/vol (Bld) 4.58 {x10E6/uL} Normal 4.14-5.80 [facility] Internal Medicine Work Phone: Comment on above: PATIENT WAS FASTINGP ERFORMED BY: CIERRA Ellis6370 [facility] [id number] Information: [id number] RBC (Bld) [#/Vol] 4.58 10*6/uL Normal 4.14-5.80 [facility] Internal Medicine; [facility] Work Phone: RBC Auto #/vol (Bld) 4.58 {x10E6/uL} Normal 4.14-5.80 [facility] Work Phone: WBC #/vol (Bld) 7.8 {x10E3/uL} Normal 3.4-10.8 [facility] Internal Medicine Work Phone: Comment on above: PATIENT WAS FASTINGP ERFORMED BY: CIERRA Ellis6370 [facility] [id number] Information: [id number] WBC (Bld) [#/Vol] 7.8 10*3/uL Normal 3.4-10.8 [facility]; [facility] Work Phone: WBC Auto #/vol (Bld) 7.8 {x10E3/uL} Normal 3.4-10.8 [facility] Work Phone: LIPID PANEL ([phone])Ordered B y: Client Advisor on 01-04-2014 Cholesterol in HDL mass conc 38 mg/dL Abnormal [facility] Work Phone: Comment on above: According to ATP-III Guidelines, HDL-C >59 mg/dL is considered anegative risk factor for CHD. PATIENT WAS FASTINGP ERFORMED BY: CIERRA Shieldslin6370 [facility] [id number] Cholesterol in LDL mass conc 61 mg/dL Normal 0-99 [facility] Work Phone: Comment on above: PATIENT WAS FASTINGP ERFORMED BY: CIERRA Shieldslin6370 [facility] [id number] Cholesterol in LDL/Cholesterol in HDL mass ratio 1.6 {ratio_units} Normal 0.0-3.6 [facility] Work Phone: Comment on above: PATIENT WAS FASTINGP ERFORMED BY: CIERRA Alicia Shieldslin6370 [address] [facility] [place] [id number] Cholesterol in VLDL mass conc 13 mg/dL Normal 5-40 [facility] Work Phone: Comment on above: PATIENT WAS FASTINGP ERFORMED BY: CIERRA LabCocheri ShieldsOcsmnq6156 [address] [facility] [id number] Cholesterol mass conc 112 mg/dL Normal 100-199 [facility] prehensive Internal Medicine Work Phone: Comment on above: PATIENT WAS FASTINGP ERFORMED BY: CIERRA Jenncheri Xopkex8409 [facility] [id number] Triglyceride mass conc 67 mg/dL Normal 0-149 [facility] Work Phone: Comment on above: PATIENT WAS FASTINGP ERFORMED BY: CIERRA [facility] Vseafv4296 [facility] [id number] METABOLIC PANEL, COMPREHENSI VE ([id number])Ordered By: Client Advisor on 01-04-2014 Albumin mass conc 4.2 g/dL Normal 3.5-4.8 Compreh [facility] Internal Medicine Work Phone: Comment on above: PATIENT WAS FASTINGP ERFORMED BY: CIERRA [facility] Verqac7537 [facility] [id number] Albumin/Globulin mass ratio 2.0 {ratio} Normal 1.1-2.5 [facility] Work Phone: Comment on above: PATIENT WAS FASTINGP ERFORMED BY: CIERRA [facility] Odctsi7616 [address] [facility] [place] [id number] ALP [Catalytic activity/Vol] 116 U/L Normal 39-117 [facility]; [facility] Work Phone: ALP enzyme act/vol 116 [iU]/L Normal 39-117 Compre [facility] Internal Medicine Work Phone: Comment on above: PATIENT WAS FASTINGP ERFORMED BY: CIERRA LabTierra ShieldsHrxalm6798 Khoury RoadDublin [place] [id number] ALT [Catalytic activity/Vol] 16 U/L Normal 0-44 [facility]; [facility] Internal Medicine Work Phone: ALT enzyme act/vol 16 [iU]/L Normal 0-44 [facility] Internal Medicine Work Phone: Comment on above: PATIENT WAS FASTINGP ERFORMED BY: CIERRA LabTierra ShieldsZxkmef9203 Khoury RoadDublin [place] [id number] AST [Catalytic activity/Vol] 22 U/L Normal 0-40 [facility]; [facility] Internal Medicine Work Phone: AST enzyme act/vol 22 [iU]/L Normal 0-40 [facility] Internal Medicine Work Phone: Comment on above: PATIENT WAS FASTINGP ERFORMED BY: CIERRA Ellis6370 Khoury RoadDuin [place] [id number] Bilirubin mass conc 1.3 mg/dL Abnormal 0.0-1.2 Compr ensive Internal Medicine Work Phone: Comment on above: PATIENT WAS FASTINGP ERFORMED BY: CIERRA LabTierra ShieldsPeihrh3658 Khoury Roadblin [place] [id number] Calcium mass conc 9.0 mg/dL Normal 8.6-10.2 Compreh ensive Internal Medicine Work Phone: Comment on above: PATIENT WAS FASTINGP ERFORMED BY: CIERRA LabTierra ShieldsDwnedw2912 [address] [facility] [place] [id number] Chloride molar conc 103 mmol/L Normal 97-108 Compr ensive Internal Medicine Work Phone: Comment on above: PATIENT WAS FASTINGP ERFORMED BY: CIERRA [facility] Yxezqw9733 Khoury RoadDublin [place] [id number] CO2 molar conc 24 mmol/L Normal 19-28 Comprehens shawn Internal Medicine Work Phone: Comment on above: PATIENT WAS FASTINGP ERFORMED BY: CIERRA LabCocheri ShieldsXmxhtr0406 Khoury RoadDublin [place] [id number] Creatinine mass conc 1.03 mg/dL Normal 0.76-1.27 Comp rehensive Internal Medicine Work Phone: Comment on above: PATIENT WAS FASTINGP ERFORMED BY: CIERRA [facility] Yymueq6538 Khoury RoadDuke Healthin [place] [id number] GFR/1.73 sq M predicted among blacks CKD-EPI vol rate/area (S/P/Bld) 81 mL/min/1.73 Normal Comprehensiv e Internal Medicine Work Phone: Comment on above: PATIENT WAS FASTINGP ERFORMED BY: CB [facility] Gilrsh1523 Khoury RoadDuke Healthin [place] [id number] GFR/1.73 sq M predicted among non-blacks CKD-EPI vol rate/area (S/P/Bld) 70 mL/min/1.73 Normal [facility] Work Phone: Comment on above: PATIENT WAS FASTINGP ERFORMED BY: [facility] Nuphwx1907 [facility] [id number] Globulin Calculated mass conc (S) 2.1 g/dL Normal 1.5-4.5 [facility] Work Phone: Globulin mass conc (S) 2.1 g/dL Normal 1.5-4.5 [facility] Work Phone: Comment on above: PATIENT WAS FASTINGP ERFORMED BY: [facility] Iycukv2347 [facility] [id number] Glucose mass conc 112 mg/dL Abnormal 65-99 Compreh ensive Internal Medicine Work Phone: Comment on above: PATIENT WAS FASTINGP ERFORMED BY: [facility] Kgyhsm5159 [address] [facility] [place] [id number] Potassium molar conc 4.6 mmol/L Normal 3.5-5.2 Comp rehensive Internal Medicine Work Phone: Comment on above: PATIENT WAS FASTINGP ERFORMED BY: [facility] Vppkef2186 [facility] [place] [id number] Protein mass conc 6.3 g/dL Normal 6.0-8.5 Compreh ensive Internal Medicine Work Phone: Comment on above: PATIENT WAS FASTINGP ERFORMED BY: CIERRA [facility] Cpiqze7746 [facility] [id number] Sodium molar conc 141 mmol/L Normal 134-144 Compreh ensive Internal Medicine Work Phone: Comment on above: PATIENT WAS FASTINGP ERFORMED BY: CIERRA [facility] Cegkje9056 [facility] [id number] Urea nitrogen mass conc 13 mg/dL Normal 8-27 [facility] Work Phone: Comment on above: PATIENT WAS FASTINGP ERFORMED BY: CIERRA [facility]Henry [facility]6370 [facility] [id number] Urea nitrogen/Creatinine mass ratio 13 mg/mg Normal 10-22 [facility] Work Phone: Comment on above: PATIENT WAS FASTINGP ERFORMED BY: CIERRA [facility]6370 [facility] [id number] MICROALBUMINOrdered By: Sy[employer] Lead on 01-04-2014 Albumin DL <= 20 mg/L mass conc (U) 4.6 ug/mL Normal 0.0-17.0 [facility] Work Phone: Comment on above: PATIENT WAS FASTINGP ERFORMED BY: CIERRA [facility]6370 [facility] [id number] Albumin/Creatinine mass ratio (U) 5.6 {mg/g_creat} Normal 0.0-30.0 [facility] Work Phone: Comment on above: PATIENT WAS FASTINGP ERFORMED BY: [facility]6370 [facility] [id number] Creatinine mass conc (U) 81.5 mg/dL Normal 22.0-328.0 [facility] Work Phone: Comment on above: PATIENT WAS FASTINGP ERFORMED BY: CIERRA [facility]Henry [facility]6370 [facility] [id number] Microscopic ExaminationOrder ed By: Client Advisor on 01-04-2014 Bacteria LM.HPF #/area (Urine sed) None seen Normal [facility] Work Phone: Comment on above: PATIENT WAS FASTINGP ERFORMED BY: CB [facility] Icjqhg2270 [address] [facility] Hospitalbl[facility] [place] [id number] Epithelial cells LM.HPF #/area (Urine sed) None seen Normal 0 - 10 [facility] Work Phone: Comment on above: PATIENT WAS FASTINGP ERFORMED BY: CB [facility] Kyawci9478 [address]y RoadDuke Healthin [place] [id number] Mucus LM Ql (Urine sed) Present Normal [facility] Work Phone: Mucus Ql (Urine sed) Present Normal Comp rehensive Internal Medicine Work Phone: Comment on above: PATIENT WAS FASTINGP ERFORMED BY: CB [facility] Ildxgf2102 [address] [facility] [place] [id number] RBC LM.HPF #/area (Urine sed) 0-3 Normal 0 - 3 [facility] Work Phone: Comment on above: PATIENT WAS FASTINGP ERFORMED BY: CB [facility] Ztokut5744 [address]y RoadDuke Healthin [place] [id number] WBC LM.HPF #/area (Urine sed) 0-5 Normal 0 - 5 [facility] Work Phone: Comment on above: PATIENT WAS FASTINGP ERFORMED BY: CB [facility] Cylnta2475 [address] [facility] [id number] PSA (Medicare - [id number]) (8415 3)Ordered By: Client Advisor on 01-04-2014 Prostate specific Ag mass conc 0.5 ng/mL Normal 0.0-4.0 [facility] Work Phone: Comment on above: [employer] ECLIA methodol ogy. .According to the [place] [employer], Serum PSA shoulddecrease and remain at undetectable levels after radicalprostatectomy. The AUA defines biochemical recurrence as an initialPSA value 0.2 ng/mL or greater followed by a subsequent confirmatoryPSA value 0.2 ng/mL or greater.Values obtained with different assay methods or kits cannot be usedinterchangeably. Results cannot be interpreted as absolute evidenceof the presence or absence of malignant disease. Screening; PATIENT N OT FASTINGPERFORMED BY: [facility] Ihznjt2064 Khoury RoadDublin [place] [id number] Information: [id number],2ND ORDER NO DRAW F EE TSH ([id number])Ordered By: Delma m Environmental Services Lead on 01-04-2014 Thyrotropin Qn 1.890 {uIU/mL} Normal 0.450-4.50 0 [facility] Work Phone: Comment on above: PATIENT WAS FASTINGP ERFORMED BY: CIERRA [facility] Naromu7853 Khoury RoadDublin [place] [id number] URINALYSIS, W/ MICRO ([id number]) Ordered By: Client Advisor on 01-04-2014 Appearance Nom (U) Clear Normal Compre hensive Internal Medicine Work Phone: Comment on above: PATIENT WAS FASTINGP ERFORMED BY: CIERRA [facility] Ebtvxm6640 Khoury RoadDublin [place] [id number] Bilirubin Ql (U) Negative Normal Comprehe nsive Internal Medicine Work Phone: Comment on above: PATIENT WAS FASTINGP ERFORMED BY: CIERRA [facility] Sabdgh8053 [address]y RoadDublin [place] [id number] Bilirubin Ql (U) Negative Normal Comprehe nsive Internal Medicine; [facility] Work Phone: Color Nom (U) Yellow Normal Comprehensi ve Internal Medicine Work Phone: Comment on above: PATIENT WAS FASTINGP ERFORMED BY: CIERRA [facility] Wmhvtp0584 K[address]y RoadDublin [place] [id number] Glucose Ql (U) Negative Normal Comprehens shawn [facility] Medicine Work Phone: Comment on above: PATIENT WAS FASTINGP ERFORMED BY: CIERRA [facility] Rtacss1103 [address] RoadDublin [place] [id number] Glucose Ql (U) Negative Normal Comprehens shawn [facility]; [facility] Work Phone: Hemoglobin Ql (U) Negative Normal Compreh ensive [facility] Medicine Work Phone: Comment on above: PATIENT WAS FASTINGP ERFORMED BY: CIERRA [facility] Yhzfxr7514 [address]y RoadDublin [place] [id number] Hemoglobin Ql (U) Negative Normal Compreh ensive [facility] Medicine; [facility] Work Phone: Hemoglobin Test strip Ql (U) Negative Normal [facility] Work Phone: Ketones Ql (U) Negative Normal Comprehens shawn [facility] Work Phone: Comment on above: PATIENT WAS FASTINGP ERFORMED BY: CIERRA [facility] Znfjzi4338 [address]y RoadDublin [place] [id number] Ketones Ql (U) Negative Normal Comprehens shawn [facility]; [facility] Work Phone: Leukocyte esterase Test strip Ql (U) Negative Normal [facility] Work Phone: Comment on above: PATIENT WAS FASTINGP ERFORMED BY: CIERRA [facility] Hrfusw1968 [address]y RoadDublin [place] [id number] Leukocyte esterase Test strip Ql (U) Negative Normal [facility]; [facility] Work Phone: Microscopic observation LM Nom (Urine sed) See below: Normal [facility] Work Phone: Comment on above: PATIENT WAS FASTINGP ERFORMED BY: CIERRA [facility] Dcrpue5189 [address] RoadDublin [place] [id number] Microscopic observation LM Nom (Urine sed) MICRON Normal [facility] Work Phone: Comment on above: Microscopic follows if indicated. PATIENT WAS FASTINGP ERFORMED BY: CIERRA [facility] Jyovsc1156 [address] RoadDublin [place] [id number] Nitrite Ql (U) Negative Normal Comprehens shawn [facility] Work Phone: Comment on above: PATIENT WAS FASTINGP ERFORMED BY: CIERRA [facility] Bhdtli9819 K[address] RoadDublin [place] [id number] Nitrite Ql (U) Negative Normal Comprehens shawn [facility]; [facility] Work Phone: Nitrite Test strip Ql (U) Negative Normal [facility] Work Phone: pH (U) 7.0 [pH] Normal 5.0-7.5 [facility] Work Phone: Comment on above: PATIENT WAS FASTINGP ERFORMED BY: CIERRA [facility] Ljzsgg1937 [facility] [id number] pH Test strip (U) 7.0 [pH] Normal 5.0-7.5 Compreh ensive Internal Medicine Work Phone: Protein Ql (U) Negative Normal Comprehens shawn [facility] Work Phone: Comment on above: PATIENT WAS FASTINGP ERFORMED BY: CIERRA Barajas Mduzzq2854 [facility] [id number] Protein Ql (U) Negative Normal Comprehens shawn [facility]; [facility] Work Phone: Protein Test strip Ql (U) Negative Normal [facility] Work Phone: Specific gravity Relative Density (U) 1.012 1 Normal 1.005-1.03 0 [facility] Work Phone: Comment on above: PATIENT WAS FASTINGP ERFORMED BY: CI[facility]RA [facility] Fccbdk8163 [facility] [id number] Urobilinogen (U) [Mass/Vol] 0.2 mg/dL Normal 0.0-1.9 [facility]; [facility] Work Phone: Urobilinogen Test strip mass conc (U) 0.2 mg/dL Normal 0.0-1.9 Comprehensiv e Internal Medicine Work Phone: Comment on above: PATIENT WAS FASTINGP ERFORMED BY: CIERRA Barajas Mzrnwz1587 [facility] [id number] Blood Glucose , Office ([phone])Ordered By: Richelle Campos on 01-03-2014 Glucose Glucometer molar conc (BldC) 204 1 Normal [facility] Work Phone: HgA1C , Office ([phone])Ordere d By: Richelle Campos on 01-03-2014 Hemoglobin A1c/Hemoglobin.total mass fraction (Bld) 6.4 % Normal 4.6 - 7.1 Comprehensiv e [facility] Medicine Work Phone: Blood Glucose , Office ([phone])Ordered By: Richelle Campos on 06-20-2013 Glucose Glucometer molar conc (BldC) 134 1 Normal [facility] Work Phone: FECAL OCCULT- Tubes sent kash e ([id number])Ordered By: Zeynep Weiss on 06-20-2013 Hemoglobin.gastrointe stinal Ql (St) Negative Normal [facility] Work Phone: Hemoglobin.gastrointe stinal Ql (Stl) Negative Normal [facility]; [facility] Work Phone: HgA1C , Office ([phone])Ordere d By: Richelle Campos on 06-20-2013 Hemoglobin A1c/Hemoglobin.total mass fraction (Bld) 5.8 % Normal 4.6 - 7.1 Comprehensiv e [facility] Medicine Work Phone: Blood Glucose , Office ([phone])Ordered By: Richelle Campos on 03-15-2013 Glucose Glucometer molar conc (BldC) 141 1 Normal [facility] Work Phone: HgA1C , Office ([phone])Ordere d By: Richelle Campos on 03-15-2013 Hemoglobin A1c/Hemoglobin.total mass fraction (Bld) 5.8 % Normal 4.6 - 7.1 Comprehensiv e [facility] Medicine Work Phone: CBC WITH MANUAL DIFF ([id number]) Ordered By: Client Advisor on 03-07-2013 Basophils #/vol (Bld) 0.0 {x10E3/uL} Normal 0.0-0.2 [facility] Work Phone: Comment on above: PATIENT WAS FASTINGP ERFORMED BY: CIERRA EVRGR Jamstv8447 [facility] [id number] Information: [id number] Basophils (Bld) [#/Vol] 0.0 10*3/uL Normal 0.0-0.2 [facility]; [facility] Work Phone: Basophils Auto #/vol (Bld) 0.0 {x10E3/uL} Normal 0.0-0.2 [facility] Work Phone: Basophils/100 WBC (Bld) 0 % Normal 0-3 [facility] Work Phone: Comment on above: PATIENT WAS FASTINGP ERFORMED BY: [facility]6370 [facility] [id number] Information: [id number] Basophils/100 WBC Auto (Bld) 0 % Normal 0-3 [facility] Work Phone: Eosinophils #/vol (Bld) 0.2 {x10E3/uL} Normal 0.0-0.4 [facility] Work Phone: Comment on above: PATIENT WAS FASTINGP ERFORMED BY: [facility]6370 [facility] [id number] Information: [id number] Eosinophils (Bld) [#/Vol] 0.2 10*3/uL Normal 0.0-0.4 [facility]; [facility] Work Phone: Eosinophils Auto #/vol (Bld) 0.2 {x10E3/uL} Normal 0.0-0.4 [facility] Work Phone: Eosinophils/100 WBC (Bld) 2 % Normal 0-7 [facility] Work Phone: Comment on above: PATIENT WAS FASTINGP ERFORMED BY: [place] [id number] [facility] [id number] Information: [id number] Eosinophils/100 WBC Auto (Bld) 2 % Normal 0-7 [facility] Work Phone: Erythrocyte distribution width Auto Ratio (RBC) 13.8 % Normal 12.3-15.4 [facility] Work Phone: Erythrocyte distribution width Ratio (RBC) 13.8 % Normal 12.3-15.4 [facility] Work Phone: Comment on above: PATIENT WAS FASTINGP ERFORMED BY: [place] [id number] [facility] [id number] Information: [id number] Hematocrit Auto Volume Fraction (Bld) 39.6 % Normal 37.5-51.0 Comprehens [facility] Internal Medicine Work Phone: Hematocrit Volume Fraction (Bld) 39.6 % Normal 37.5-51.0 [facility] Work Phone: Comment on above: PATIENT WAS FASTINGP ERFORMED BY: [address] [id number] Information: [id number] Hemoglobin mass conc (Bld) 13.3 g/dL Normal 12.6-17.7 [facility] Work Phone: Comment on above: PATIENT WAS FASTINGP ERFORMED BY: [address] [id number] Information: [id number] Immature granulocytes #/vol (Bld) 0.0 {x10E3/uL} Normal 0.0-0.1 [facility] Work Phone: Comment on above: PATIENT WAS FASTINGP ERFORMED BY: [address] [id number] Information: [id number] Immature granulocytes (Bld) [#/Vol] 0.0 10*3/uL Normal 0.0-0.1 [facility]; [facility] Work Phone: Immature granulocytes/100 WBC (Bld) 0 % Normal 0-2 [facility] Work Phone: Comment on above: PATIENT WAS FASTINGP ERFORMED BY: [address] [id number] Information: [id number] Lymphocytes #/vol (Bld) 1.6 {x10E3/uL} Normal 0.7-4.5 [facility] Work Phone: Comment on above: PATIENT WAS FASTINGP ERFORMED BY: [address] [id number] Information: [id number] Lymphocytes (Bld) [#/Vol] 1.6 10*3/uL Normal 0.7-4.5 [facility]; [facility] Work Phone: Lymphocytes Auto #/vol (Bld) 1.6 {x10E3/uL} Normal 0.7-4.5 [facility] Work Phone: Lymphocytes/100 WBC (Bld) 19 % Normal 14- [facility] Work Phone: Comment on above: PATIENT WAS FASTINGP ERFORMED BY: CIERRA [facility] Hospitalcheri Cctmnq0221 [facility] [id number] Information: [id number] Lymphocytes/100 WBC Auto (Bld) 19 % Normal 14- [facility] Work Phone: MCH Auto Entitic mass (RBC) 29.9 pg Normal 26.6-33.0 [facility] Work Phone: MCH Entitic mass (RBC) 29.9 pg Normal 26.6-33.0 [facility] Work Phone: Comment on above: PATIENT WAS FASTINGP ERFORMED BY: CIERRA [address] [id number] Information: [id number] MCHC Auto mass conc (RBC) 33.6 g/dL Normal 31.5-35.7 [facility] Work Phone: MCHC mass conc (RBC) 33.6 g/dL Normal 31.5-35.7 [facility] Internal Medicine Work Phone: Comment on above: PATIENT WAS FASTINGP ERFORMED BY: CIERRA [address] [id number] Information: [id number] MCV Auto Entitic volume (RBC) 89 fL Normal 79-97 [facility] Work Phone: MCV Entitic volume (RBC) 89 fL Normal 79-97 [facility] Work Phone: Comment on above: PATIENT WAS FASTINGP ERFORMED BY: CIERRA [place] [id number] [facility] [id number] Information: [id number] Monocytes #/vol (Bld) 0.3 {x10E3/uL} Normal 0.1-1.0 [facility] Work Phone: Comment on above: PATIENT WAS FASTINGP ERFORMED BY: [place] [id number] [facility] [id number] Information: [id number] Monocytes (Bld) [#/Vol] 0.3 10*3/uL Normal 0.1-1.0 [facility]; [facility] Work Phone: Monocytes Auto #/vol (Bld) 0.3 {x10E3/uL} Normal 0.1-1.0 [facility] Work Phone: Monocytes/100 WBC (Bld) 4 % Normal 01-06 [facility] Work Phone: Comment on above: PATIENT WAS FASTINGP ERFORMED BY: [place] [id number] [facility] [id number] Information: [id number] Monocytes/100 WBC Auto (Bld) 4 % Normal - [facility] Work Phone: Neutrophils #/vol (Bld) 6.2 {x10E3/uL} Normal 1.8-7.8 [facility] Work Phone: Comment on above: PATIENT WAS FASTINGP ERFORMED BY: [facility]6370 [facility] [id number] Information: [id number] Neutrophils (Bld) [#/Vol] 6.2 10*3/uL Normal 1.8-7.8 [facility]; [facility] Work Phone: Neutrophils Auto #/vol (Bld) 6.2 {x10E3/uL} Normal 1.8-7.8 [facility] Work Phone: Neutrophils/100 WBC (Bld) 75 % Abnormal 40-74 [facility] Work Phone: Comment on above: PATIENT WAS FASTINGP ERFORMED BY: [place] [id number] [facility] [id number] Information: [id number] Neutrophils/100 WBC Auto (Bld) 75 % Abnormal 40-74 [facility] Work Phone: Platelets #/vol (Bld) 197 {x10E3/uL} Normal 140-415 [facility] Internal Medicine Work Phone: Comment on above: PATIENT WAS FASTINGP ERFORMED BY: CIERRA Ellis6370 [facility] [id number] Information: [id number] Platelets (Bld) [#/Vol] 197 10*3/uL Normal 140-415 [facility] Internal Medicine; [facility] Work Phone: Platelets Auto #/vol (Bld) 197 {x10E3/uL} Normal 140-415 [facility] Internal [facility] Work Phone: RBC #/vol (Bld) 4.45 {x10E6/uL} Normal 4.14-5.80 Comp [facility] Internal Medicine Work Phone: Comment on above: PATIENT WAS FASTINGP ERFORMED BY: CIERRA [facility]6370 [facility] [id number] Information: [id number] RBC (Bld) [#/Vol] 4.45 10*6/uL Normal 4.14-5.80 Compr [facility] Internal Medicine; [facility] Internal Medicine Work Phone: RBC Auto #/vol (Bld) 4.45 {x10E6/uL} Normal 4.14-5.80 [facility] Internal Medicine Work Phone: WBC #/vol (Bld) 8.4 {x10E3/uL} Normal 4.0-10.5 [facility] Internal Medicine Work Phone: Comment on above: PATIENT WAS FASTINGP ERFORMED BY: CIERRA [facility]6370 [facility] [id number] Information: [id number] WBC (Bld) [#/Vol] 8.4 10*3/uL Normal 4.0-10.5 Compre [facility] Internal Medicine; [facility] Internal Medicine Work Phone: WBC Auto #/vol (Bld) 8.4 {x10E3/uL} Normal 4.0-10.5 [facility] Work Phone: LIPID PANEL ([id number])Ordered B y: Client Advisor on 03-07-2013 Cholesterol in HDL mass conc 39 mg/dL Abnormal [facility] Work Phone: Comment on above: According to ATP-III Guidelines, HDL-C >59 mg/dL is considered anegative risk factor for CHD. PATIENT WAS FASTINGP ERFORMED BY: CIERRA [facility] Tiwxeo1514 [address] RoadDublin [place] [id number] Cholesterol in LDL mass conc 60 mg/dL Normal 0-99 [facility] Work Phone: Comment on above: PATIENT WAS FASTINGP ERFORMED BY: CIERRA [facility] Zvyykd9052 Khoury RoadDublin [place] [id number] Cholesterol in LDL/Cholesterol in HDL mass ratio 1.5 {ratio_units} Normal 0.0-3.6 [facility] Work Phone: Comment on above: PATIENT WAS FASTINGP ERFORMED BY: CIERRA [facility] Pkxoll8186 [address] 5211gameDublin [place] [id number] Cholesterol in VLDL mass conc 14 mg/dL Normal 5-40 [facility] Work Phone: Comment on above: PATIENT WAS FASTINGP ERFORMED BY: CIERRA [facility] Gylkds2541 [address] 5211gameDuin [place] [id number] Cholesterol mass conc 113 mg/dL Normal 100-199 [facility] prehensive Internal Medicine Work Phone: Comment on above: PATIENT WAS FASTINGP ERFORMED BY: CB [facility] Rxtzcr4222 [address] 5211gameDublin [place] [id number] Triglyceride mass conc 69 mg/dL Normal 0-149 [facility] Work Phone: Comment on above: PATIENT WAS FASTINGP ERFORMED BY: CB [facility] Hjkopt6906 [address] 5211gameDublin [place] [id number] METABOLIC PANEL, COMPREHENSI VE ([id number])Ordered By: Client Advisor on 03-07-2013 Albumin mass conc 4.2 g/dL Normal 3.5-4.8 Compreh ensive Internal Medicine Work Phone: Comment on above: PATIENT WAS FASTINGP ERFORMED BY: CIERRA [facility] Ecnaco1060 [address] RoadDublin [place] [id number] Albumin/Globulin mass ratio 1.8 {ratio} Normal 1.1-2.5 [facility] Internal Medicine Work Phone: Comment on above: PATIENT WAS FASTINGP ERFORMED BY: CB [facility] Wcvthc1963 [address] RoadDublin [place] [id number] ALP [Catalytic activity/Vol] 121 U/L Normal 25-160 [facility]; [facility] Internal Medicine Work Phone: ALP enzyme act/vol 121 [iU]/L Normal 25-160 [facility] Internal Medicine Work Phone: Comment on above: PATIENT WAS FASTINGP ERFORMED BY: CIERRA [facility] Jyfyis1901 K[address]y RoadDublin [place] [id number] ALT [Catalytic activity/Vol] 25 U/L Normal 0-44 [facility]; [facility] Internal Medicine Work Phone: ALT enzyme act/vol 25 [iU]/L Normal 0-44 [facility] Internal Medicine Work Phone: Comment on above: PATIENT WAS FASTINGP ERFORMED BY: [facility] Qruwzd1342 [address] RoadDublin [place] [id number] AST [Catalytic activity/Vol] 26 U/L Normal 0-40 [facility] Internal Medicine; [facility] Internal Medicine Work Phone: AST enzyme act/vol 26 [iU]/L Normal 0-40 [facility] Internal Medicine Work Phone: Comment on above: PATIENT WAS FASTINGP ERFORMED BY: CB [facility] Fyxuqb8736 Khoury RoadDublin [place] [id number] Bilirubin mass conc 0.9 mg/dL Normal 0.0-1.2 [facility] Internal Medicine Work Phone: Comment on above: PATIENT WAS FASTINGP ERFORMED BY: CB [facility] Pfmwdi1260 [address] RoadDublin [place] [id number] Calcium mass conc 9.2 mg/dL Normal 8.6-10.2 Compreh ensive Internal Medicine Work Phone: Comment on above: PATIENT WAS FASTINGP ERFORMED BY: CIERRA [facility] Cojcfn0639 Khour[address] Roadblin [place] [id number] Chloride molar conc 106 mmol/L Normal 97-108 Compr ehensive Internal Medicine Work Phone: Comment on above: PATIENT WAS FASTINGP ERFORMED BY: CB [facility] Ikcuky1549 Khoury RoadDuke Healthin [place] [id number] CO2 molar conc 22 mmol/L Normal 20-32 Comprehens shawn Internal Medicine Work Phone: Comment on above: Effective March 12, 2013, the reference interval for Carbon Dioxide, Total will be changing to: 0 - 7 days 18 - 28 8 - 30 days 17 - 27 31 d - 5 months 15 - 26 6 m - up to 1 year 15 - 25 1 - 12 years 17 - 26 > 12 years 19 - 28 PATIENT WAS FASTINGP ERFORMED BY: CB [facility] Ozwttj8407 [address] [facility] [id number] Creatinine mass conc 0.90 mg/dL Normal 0.76-1.27 [facility] Work Phone: Comment on above: PATIENT WAS FASTINGP ERFORMED BY: CB [facility] Zeptsf5644 [address] [facility] [id number] GFR/1.73 sq M predicted among blacks CKD-EPI vol rate/area (S/P/Bld) 96 mL/min/1.73 Normal Comprehensiv e Internal Medicine Work Phone: Comment on above: PATIENT WAS FASTINGP ERFORMED BY: CB [facility] Uschci0640 [address] [facility] [id number] GFR/1.73 sq M predicted among non-blacks CKD-EPI vol rate/area (S/P/Bld) 83 mL/min/1.73 Normal [facility] Work Phone: Comment on above: PATIENT WAS FASTINGP ERFORMED BY: CB [facility] Bifgcw6942 [address] [facility] [place] [id number] Globulin Calculated mass conc (S) 2.3 g/dL Normal 1.5-4.5 [facility] Work Phone: Globulin mass conc (S) 2.3 g/dL Normal 1.5-4.5 [facility] Work Phone: Comment on above: PATIENT WAS FASTINGP ERFORMED BY: CIERRA [facility] Ogyhpg1093 [address] RoadDublin [place] [id number] Glucose mass conc 136 mg/dL Abnormal 65-99 Compreh ensive Internal Medicine Work Phone: Comment on above: PATIENT WAS FASTINGP ERFORMED BY: CIERRA [facility] Auxtif8427 [address] RoadDublin [place] [id number] Potassium molar conc 4.4 mmol/L Normal 3.5-5.2 Comp rehensive Internal Medicine Work Phone: Comment on above: PATIENT WAS FASTINGP ERFORMED BY: CIERRA [facility] Rbnuon9182 [address] RoadDublin [place] [id number] Protein mass conc 6.5 g/dL Normal 6.0-8.5 Compreh ensive Internal Medicine Work Phone: Comment on above: PATIENT WAS FASTINGP ERFORMED BY: CIERRA [facility] Vdcdrk3873 K[address] RoadDublin [place] [id number] Sodium molar conc 143 mmol/L Normal 134-144 Compreh ensive Internal Medicine Work Phone: Comment on above: PATIENT WAS FASTINGP ERFORMED BY: CIERRA [facility] Jvhazi3916 [address] RoadDublin [place] [id number] Urea nitrogen mass conc 15 mg/dL Normal 8-27 [facility] Work Phone: Comment on above: PATIENT WAS FASTINGP ERFORMED BY: CIERRA [facility] Ylvtxn9304 [address] RoadDublin [place] [id number] Urea nitrogen/Creatinine mass ratio 17 mg/mg Normal 10-22 [facility] Work Phone: Comment on above: PATIENT WAS FASTINGP ERFORMED BY: CIERRA [facility] Ejkwox4267 [address] RoadDublin [place] [id number] MICROALBUMINOrdered By: Syst em Environmental Services Lead on 03-07-2013 Albumin DL <= 20 mg/L mass conc (U) 12.1 ug/mL Normal 0.0-17.0 [facility] Work Phone: Comment on above: PATIENT WAS FASTINGP ERFORMED BY: [facility] Nxusgy0294 [address] [facility] [place] [id number] Albumin/Creatinine mass ratio (U) 6.7 {mg/g_creat} Normal 0.0-30.0 [facility] Work Phone: Comment on above: PATIENT WAS FASTINGP ERFORMED BY: [facility] Cbkcqz1505 [address] [facility] [id number] Creatinine mass conc (U) 180.6 mg/dL Normal 22.0-328.0 [facility] Work Phone: Comment on above: PATIENT WAS FASTINGP ERFORMED BY: [facility] Rjisnh6666 [address] [facility] [id number] Microscopic ExaminationOrder ed By: Client Advisor on 03-07-2013 Bacteria LM.HPF #/area (Urine sed) None seen Normal [facility] Work Phone: Comment on above: PATIENT WAS FASTINGP ERFORMED BY: [facility] Sssaxz8648 [address] [facility] [place] [id number] Epithelial cells LM.HPF #/area (Urine sed) 0-10 Normal 0 - 10 [facility] Work Phone: Comment on above: PATIENT WAS FASTINGP ERFORMED BY: [facility] Inzzpn4373 [address] [facility]in [place] [id number] Mucus LM Ql (Urine sed) Present Normal [facility] Work Phone: Mucus Ql (Urine sed) Present Normal Comp rehensive Internal Medicine Work Phone: Comment on above: PATIENT WAS FASTINGP ERFORMED BY: [facility] Lrgsfd2358 [address] [facility] Hospitalblin [place] [id number] RBC LM.HPF #/area (Urine sed) 0-3 Normal 0 - 3 [facility] Work Phone: Comment on above: PATIENT WAS FASTINGP ERFORMED BY: [facility] Ijmork0976 [address] [facility] Hospitalblin [place] [id number] WBC LM.HPF #/area (Urine sed) 0-5 Normal 0 - 5 [facility] Work Phone: Comment on above: PATIENT WAS FASTINGP ERFORMED BY: CIERRA [facility] Ymgdwa4271 [address] RoadDublin [place] [id number] TSH ([id number])Ordered By: Passlogixe m Environmental Services Lead on 03-07-2013 Thyrotropin Qn 1.590 {uIU/mL} Normal 0.450-4.50 0 [facility] Work Phone: Comment on above: PATIENT WAS FASTINGP ERFORMED BY: CIERRA [facility] Ygrmkg8959 [address] Roadblin [place] [id number] URINALYSIS, W/ MICRO ([id number]) Ordered By: Client Advisor on 03-07-2013 Appearance Nom (U) Clear Normal Compre hensive Internal Medicine Work Phone: Comment on above: PATIENT WAS FASTINGP ERFORMED BY: CIERRA LabCocheri ShieldsUbzara8846 Khoury RoadDuke Healthin [place] [id number] Bilirubin Ql (U) Negative Normal Comprehe nsive Internal Medicine Work Phone: Comment on above: PATIENT WAS FASTINGP ERFORMED BY: CIERRA [facility] Dfoyxa0275 Khoury RoadDublin [place] [id number] Bilirubin Ql (U) Negative Normal Comprehe nsive Internal Medicine; [facility] Work Phone: Color Nom (U) Yellow Normal Comprehensi ve Internal Medicine Work Phone: Comment on above: PATIENT WAS FASTINGP ERFORMED BY: CIERRA [facility] Qoojuo1258 Khoury RoadDublin [place] [id number] Glucose Ql (U) Negative Normal Comprehens shawn Internal Medicine Work Phone: Comment on above: PATIENT WAS FASTINGP ERFORMED BY: CIERRA [facility] Lnoaxt1009 [address]y RoadDublin [place] [id number] Glucose Ql (U) Negative Normal Comprehens shawn [facility] Medicine; [facility] Work Phone: Hemoglobin Ql (U) Negative Normal Compreh ensive Internal Medicine Work Phone: Comment on above: PATIENT WAS FASTINGP ERFORMED BY: CIERRA LabTierra ShieldsJzpzfy9575 Khoury RoadDublin [place] [id number] Hemoglobin Ql (U) Negative Normal Compreh ensive Internal Medicine; [facility] Work Phone: Hemoglobin Test strip Ql (U) Negative Normal [facility] Work Phone: Ketones Ql (U) Negative Normal Comprehens shawn [facility] Medicine Work Phone: Comment on above: PATIENT WAS FASTINGP ERFORMED BY: CIERRA LabTierra ShieldsLnelgm3286 Khoury RoadDublin [place] [id number] Ketones Ql (U) Negative Normal Comprehens shawn [facility]; [facility] Work Phone: Leukocyte esterase Test strip Ql (U) Negative Normal [facility] Work Phone: Comment on above: PATIENT WAS FASTINGP ERFORMED BY: CIERRA Shieldslin6370 [address] RoadDublin [place] [id number] Leukocyte esterase Test strip Ql (U) Negative Normal [facility]; [facility] Work Phone: Microscopic observation LM Nom (Urine sed) See below: Normal [facility] Work Phone: Comment on above: PATIENT WAS FASTINGP ERFORMED BY: CIERRA Shieldslin6370 [address] RoadDublin [place] [id number] Microscopic observation LM Nom (Urine sed) MICRON Normal [facility] Work Phone: Comment on above: Microscopic follows if indicated. PATIENT WAS FASTINGP ERFORMED BY: CIERRA Shieldslin6370 [address] Roadblin [place] [id number] Nitrite Ql (U) Negative Normal Comprehens shawn Internal Medicine Work Phone: Comment on above: PATIENT WAS FASTINGP ERFORMED BY: CIERRA [facility] Ntgngu1322 [address] RoadDublin [place] [id number] Nitrite Ql (U) Negative Normal Comprehens shawn [facility] Medicine; [facility] Work Phone: Nitrite Test strip Ql (U) Negative Normal [facility] Work Phone: pH (U) 6.0 [pH] Normal 5.0-7.5 [facility] Work Phone: Comment on above: PATIENT WAS FASTINGP ERFORMED BY: Rawporter Xmvyjv4033 KhouryOscarUNC Health Blue Ridge [id number] pH Test strip (U) 6.0 [pH] Normal 5.0-7.5 Compreh ensive Internal Medicine Work Phone: Protein Ql (U) Negative Normal Comprehens shawn Internal Medicine Work Phone: Comment on above: PATIENT WAS FASTINGP ERFORMED BY: CIERRA Rawporter Osyvlx4486 [address] BixUNC Health Blue Ridge [id number] Protein Ql (U) Negative Normal Comprehens shawn [facility] Medicine; [facility] Work Phone: Protein Test strip Ql (U) Negative Normal [facility] Work Phone: Specific gravity Relative Density (U) 1.024 1 Normal 1.005-1.03 0 [facility] Work Phone: Comment on above: PATIENT WAS FASTINGP ERFORMED BY: CIERRA Rawporter Uvlcrj4960 [address] BixUNC Health Blue Ridge [id number] Urobilinogen (U) [Mass/Vol] 0.2 mg/dL Normal 0.0-1.9 [facility]; [facility] Work Phone: Urobilinogen Test strip mass conc (U) 0.2 mg/dL Normal 0.0-1.9 Comprehensiv e Internal Medicine Work Phone: Comment on above: PATIENT WAS FASTINGP ERFORMED BY: Rawporter Ffydch6817 [address] BixUNC Health Blue Ridge [id number] Blood Glucose , Office ([phone])Ordered By: Richelle Campos on 10-11-2012 Glucose Glucometer molar conc (BldC) 149 1 Normal [facility] Work Phone: HgA1C , Office ([phone])Ordere d By: Richelle Campos on 10-11-2012 Hemoglobin A1c/Hemoglobin.total mass fraction (Bld) 6.3 % Normal 4.6 - 7.1 Comprehensiv e Internal Medicine Work Phone: CBC WITH MANUAL DIFF ([id number]) Ordered By: Client Advisor on 07-04-2012 Basophils #/vol (Bld) 0.0 {x10E3/uL} Normal 0.0-0.2 [facility] Work Phone: Comment on above: PATIENT NOT FASTINGP ERFORMED BY: CIERRA [facility]6370 [facility] [id number] Information: [id number] Basophils (Bld) [#/Vol] 0.0 10*3/uL Normal 0.0-0.2 [facility]; [facility] Work Phone: Basophils Auto #/vol (Bld) 0.0 {x10E3/uL} Normal 0.0-0.2 [facility] Work Phone: Basophils/100 WBC (Bld) 1 % Normal 0-3 [facility] Work Phone: Comment on above: PATIENT NOT FASTINGP ERFORMED BY: [facility]6370 [facility] [id number] Information: [id number] Basophils/100 WBC Auto (Bld) 1 % Normal 0-3 [facility] Work Phone: Eosinophils #/vol (Bld) 0.2 {x10E3/uL} Normal 0.0-0.4 [facility] Work Phone: Comment on above: PATIENT NOT FASTINGP ERFORMED BY: [facility]6370 [facility] [id number] Information: [id number] Eosinophils (Bld) [#/Vol] 0.2 10*3/uL Normal 0.0-0.4 [facility]; [facility] Work Phone: Eosinophils Auto #/vol (Bld) 0.2 {x10E3/uL} Normal 0.0-0.4 [facility] Work Phone: Eosinophils/100 WBC (Bld) 3 % Normal 0-7 [facility] Work Phone: Comment on above: PATIENT NOT FASTINGP ERFORMED BY: LabCoAstra Health CenterRsdrlr5433 [facility] [id number] Information: [id number] Eosinophils/100 WBC Auto (Bld) 3 % Normal 0-7 [facility] Work Phone: Erythrocyte distribution width Auto Ratio (RBC) 13.9 % Normal 12.3-15.4 [facility] Work Phone: Erythrocyte distribution width Ratio (RBC) 13.9 % Normal 12.3-15.4 [facility] Work Phone: Comment on above: PATIENT NOT FASTINGP ERFORMED BY: [place] [id number] [facility] [id number] Information: [id number] Hematocrit Auto Volume Fraction (Bld) 39.4 % Normal 37.5-51.0 [facility] Internal Medicine Work Phone: Hematocrit Volume Fraction (Bld) 39.4 % Normal 37.5-51.0 [facility] Internal Medicine Work Phone: Comment on above: PATIENT NOT FASTINGP ERFORMED BY: [place] [id number] [facility] [id number] Information: [id number] Hemoglobin mass conc (Bld) 13.3 g/dL Normal 12.6-17.7 [facility] Work Phone: Comment on above: PATIENT NOT FASTINGP ERFORMED BY: [place] [id number] [facility] [id number] Information: [id number] Immature granulocytes #/vol (Bld) 0.0 {x10E3/uL} Normal 0.0-0.1 [facility] Work Phone: Comment on above: PATIENT NOT FASTINGP ERFORMED BY: [place] [id number] [facility] [id number] Information: [id number] Immature granulocytes (Bld) [#/Vol] 0.0 10*3/uL Normal 0.0-0.1 [facility]; [facility] Work Phone: Immature granulocytes/100 WBC (Bld) 0 % Normal 0-2 [facility] Work Phone: Comment on above: PATIENT NOT FASTINGP ERFORMED BY: CIERRA RawporterAstra Health CenterRimvla3501 [facility] [id number] Information: [id number] Lymphocytes #/vol (Bld) 1.5 {x10E3/uL} Normal 0.7-4.5 [facility] Work Phone: Comment on above: PATIENT NOT FASTINGP ERFORMED BY: TeachernowAlbert Ville 8276870 [facility] [id number] Information: [id number] Lymphocytes (Bld) [#/Vol] 1.5 10*3/uL Normal 0.7-4.5 [facility]; [facility] Work Phone: Lymphocytes Auto #/vol (Bld) 1.5 {x10E3/uL} Normal 0.7-4.5 [facility] Work Phone: Lymphocytes/100 WBC (Bld) 19 % Normal 14-46 [facility] Work Phone: Comment on above: PATIENT NOT FASTINGP ERFORMED BY: RawporterMichele Ville [id number] [facility] [id number] Information: [id number] Lymphocytes/100 WBC Auto (Bld) 19 % Normal 14-46 [facility] Work Phone: MCH Auto Entitic mass (RBC) 29.8 pg Normal 26.6-33.0 [facility] Work Phone: MCH Entitic mass (RBC) 29.8 pg Normal 26.6-33.0 [facility] Work Phone: Comment on above: PATIENT NOT FASTINGP ERFORMED BY: TeachernowAlbert [place] 8276870 [facility] [id number] Information: [id number] MCHC Auto mass conc (RBC) 33.8 g/dL Normal 31.5-35.7 [facility] Work Phone: MCHC mass conc (RBC) 33.8 g/dL Normal 31.5-35.7 Comp [facility] Internal Medicine Work Phone: Comment on above: PATIENT NOT FASTINGP ERFORMED BY: CIERRA [facility] HospitalTierra ShieldsZyroos6982 [facility] [id number] Information: [id number] MCV Auto Entitic volume (RBC) 88 fL Normal 79-97 [facility] Work Phone: MCV Entitic volume (RBC) 88 fL Normal 79-97 [facility] Work Phone: Comment on above: PATIENT NOT FASTINGP ERFORMED BY: CIERRA [facility] HospitalTierra ShieldsDzjzhc3218 [facility] [id number] Information: [id number] Monocytes #/vol (Bld) 0.5 {x10E3/uL} Normal 0.1-1.0 [facility] Work Phone: Comment on above: PATIENT NOT FASTINGP ERFORMED BY: CIERRA [facility]6370 [facility] [id number] Information: [id number] Monocytes (Bld) [#/Vol] 0.5 10*3/uL Normal 0.1-1.0 [facility]; [facility] Work Phone: Monocytes Auto #/vol (Bld) 0.5 {x10E3/uL} Normal 0.1-1.0 [facility] Work Phone: Monocytes/100 WBC (Bld) 6 % Normal 4-13 [facility] Work Phone: Comment on above: PATIENT NOT FASTINGP ERFORMED BY: CIERRA [place] [id number] [facility] [id number] Information: [id number] Monocytes/100 WBC Auto (Bld) 6 % Normal 4-13 [facility] Work Phone: Neutrophils #/vol (Bld) 5.6 {x10E3/uL} Normal 1.8-7.8 [facility] Work Phone: Comment on above: PATIENT NOT FASTINGP ERFORMED BY: CIERRA Alicia Pianting70 [facility] [id number] Information: [id number] Neutrophils (Bld) [#/Vol] 5.6 10*3/uL Normal 1.8-7.8 [facility]; [facility] Work Phone: Neutrophils Auto #/vol (Bld) 5.6 {x10E3/uL} Normal 1.8-7.8 [facility] Work Phone: Neutrophils/100 WBC (Bld) 71 % Normal 40-74 [facility] Work Phone: Comment on above: PATIENT NOT FASTINGP ERFORMED BY: CIERRA Jenncheri ShieldsZyrahb5317 [facility] [id number] Information: [id number] Neutrophils/100 WBC Auto (Bld) 71 % Normal 40-74 [facility] Work Phone: Platelets #/vol (Bld) 219 {x10E3/uL} Normal 140-415 [facility] Work Phone: Comment on above: PATIENT NOT FASTINGP ERFORMED BY: CIERRA Jenncheri Gswjcp9065 [facility] [id number] Information: [id number] Platelets (Bld) [#/Vol] 219 10*3/uL Normal 140-415 [facility]; [facility] Work Phone: Platelets Auto #/vol (Bld) 219 {x10E3/uL} Normal 140-415 [facility] Work Phone: RBC #/vol (Bld) 4.47 {x10E6/uL} Normal 4.14-5.80 Comp [facility] Internal Medicine Work Phone: Comment on above: PATIENT NOT FASTINGP ERFORMED BY: CIERRA [place] [id number] [facility] [id number] Information: [id number] RBC (Bld) [#/Vol] 4.47 10*6/uL Normal 4.14-5.80 [facility]erens[facility]; [facility] Work Phone: RBC Auto #/vol (Bld) 4.47 {x10E6/uL} Normal 4.14-5.80 [facility] Work Phone: WBC #/vol (Bld) 7.8 {x10E3/uL} Normal 4.0-10.5 Compr ensive Internal Medicine Work Phone: Comment on above: PATIENT NOT FASTINGP ERFORMED BY: CIERRA String EnterprisesUNC Health Blue Ridge [id number] Information: [id number] WBC (Bld) [#/Vol] 7.8 10*3/uL Normal 4.0-10.5 [facility]; [facility] Work Phone: WBC Auto #/vol (Bld) 7.8 {x10E3/uL} Normal 4.0-10.5 [facility] Work Phone: Hemoglobin Glyclated (HGB A1 C) ([id number])Ordered By: Client Advisor on 07-04-2012 Hemoglobin A1c/Hemoglobin.total mass fraction (Bld) 6.3 % Abnormal 4.8-5.6 Comprehens e Internal Medicine Work Phone: Comment on above: . Increased risk for diabetes: 5.7 - 6.4 Diabetes: >6.4 Glycemic control for adults with diabetes: <7.0 PATIENT NOT FASTINGP ERFORMED BY: CIERRA [employer]6370 Nanof[employer] InstrumentsUNC Health Blue Ridge [id number] LIPID PANEL ([id number])Ordered B y: Client Advisor on 07-04-2012 Cholesterol in HDL mass conc 35 mg/dL Abnormal [facility] Work Phone: Comment on above: According to ATP-III Guidelines, HDL-C >59 mg/dL is considered anegative risk factor for CHD. PATIENT NOT FASTINGP ERFORMED BY: CIERRA String EnterprisesUNC Health Blue [facility] [id number] Cholesterol in LDL mass conc 64 mg/dL Normal 0-99 [facility] Work Phone: Comment on above: PATIENT NOT FASTINGP ERFORMED BY: CIERRA Ellis[address] [facility] [id number] Cholesterol in LDL/Cholesterol in HDL mass ratio 1.8 {ratio_units} Normal 0.0-3.6 [facility] Work Phone: Comment on above: PATIENT NOT FASTINGP ERFORMED BY: CIERRA Ellis[address] [facility] [id number] Cholesterol in VLDL mass conc 18 mg/dL Normal 5-40 [facility] Work Phone: Comment on above: PATIENT NOT FASTINGP ERFORMED BY: CIERRA Ellis6370 [facility] [id number] Cholesterol mass conc 117 mg/dL Normal 100-199 [facility] prehensive Internal Medicine Work Phone: Comment on above: PATIENT NOT FASTINGP ERFORMED BY: CIERRA Ellis6370 [facility] [id number] Triglyceride mass conc 88 mg/dL Normal 0-149 [facility] Work Phone: Comment on above: PATIENT NOT FASTINGP ERFORMED BY: CIERRA Ellis6370 [facility] [id number] METABOLIC PANEL, COMPREHENSI VE ([id number])Ordered By: Client Advisor on 07-04-2012 Albumin mass conc 4.2 g/dL Normal 3.5-4.8 Compreh ensive Internal Medicine Work Phone: Comment on above: PATIENT NOT FASTINGP ERFORMED BY: CIERRA Shieldslin6370 [facility] [id number] Albumin/Globulin mass ratio 2.0 {ratio} Normal 1.1-2.5 [facility] Work Phone: Comment on above: PATIENT NOT FASTINGP ERFORMED BY: CIERRA Shieldslin6370 [facility] [id number] ALP [Catalytic activity/Vol] 117 U/L Normal 25-160 [facility]; [facility] Work Phone: ALP enzyme act/vol 117 [iU]/L Normal 25-160 [facility] Internal Medicine Work Phone: Comment on above: PATIENT NOT FASTINGP ERFORMED BY: CB [facility] Yszslk5963 Khoury RoadDublin [place] [id number] ALT [Catalytic activity/Vol] 17 U/L Normal 0-55 [facility]; [facility] Internal Medicine Work Phone: ALT enzyme act/vol 17 [iU]/L Normal 0-55 [facility] Internal Medicine Work Phone: Comment on above: PATIENT NOT FASTINGP ERFORMED BY: CB [facility] Mqysno4982 Khoury RoadDublin [place] [id number] AST [Catalytic activity/Vol] 18 U/L Normal 0-40 [facility]; [facility] Internal Medicine Work Phone: AST enzyme act/vol 18 [iU]/L Normal 0-40 [facility] Internal Medicine Work Phone: Comment on above: PATIENT NOT FASTINGP ERFORMED BY: CB [facility] Fiklbp8555 Khoury RoadDublin [place] [id number] Bilirubin mass conc 1.0 mg/dL Normal 0.0-1.2 Compr [facility] Internal Medicine Work Phone: Comment on above: PATIENT NOT FASTINGP ERFORMED BY: CB [facility] Tbmmlj6865 Khoury RoadDublin [place] [id number] Calcium mass conc 8.9 mg/dL Normal 8.6-10.2 Compreh ensive Internal Medicine Work Phone: Comment on above: PATIENT NOT FASTINGP ERFORMED BY: CB [facility] Jbirbt8674 Khoury RoadDublin [place] [id number] Chloride molar conc 105 mmol/L Normal 97-108 Compr ensive Internal Medicine Work Phone: Comment on above: PATIENT NOT FASTINGP ERFORMED BY: CB [facility] Viamlt1549 Khoury RoadDublin [place] [id number] CO2 molar conc 22 mmol/L Normal 20-32 Comprehens shawn Internal Medicine Work Phone: Comment on above: PATIENT NOT FASTINGP ERFORMED BY: CIERRA [facility] Xarpgr0001 [address] [facility] [id number] Creatinine mass conc 0.86 mg/dL Normal 0.76-1.27 Comp rehensive Internal Medicine Work Phone: Comment on above: PATIENT NOT FASTINGP ERFORMED BY: CB [facility] Eqvrqw9364 [address] [facility] [id number] GFR/1.73 sq M predicted among blacks CKD-EPI vol rate/area (S/P/Bld) 98 mL/min/1.73 Normal Comprehensiv e Internal Medicine Work Phone: Comment on above: PATIENT NOT FASTINGP ERFORMED BY: CIERRA [facility] Uummkq3034 [facility] [id number] GFR/1.73 sq M predicted among non-blacks CKD-EPI vol rate/area (S/P/Bld) 85 mL/min/1.73 Normal [facility] Work Phone: Comment on above: PATIENT NOT FASTINGP ERFORMED BY: CIERRA [facility] Xwmvuo5285 [facility] [id number] Globulin Calculated mass conc (S) 2.1 g/dL Normal 1.5-4.5 [facility] Work Phone: Globulin mass conc (S) 2.1 g/dL Normal 1.5-4.5 [facility] Work Phone: Comment on above: PATIENT NOT FASTINGP ERFORMED BY: CIERRA [facility] Riwmpa3399 [facility] [id number] Glucose mass conc 127 mg/dL Abnormal 65-99 Compreh ensive Internal Medicine Work Phone: Comment on above: PATIENT NOT FASTINGP ERFORMED BY: CB [facility] Pmbajn2840 [facility] [id number] Potassium molar conc 4.6 mmol/L Normal 3.5-5.2 Comp rehensive Internal Medicine Work Phone: Comment on above: PATIENT NOT FASTINGP ERFORMED BY: CB [facility] Pzdzgc8816 [facility] [id number] Protein mass conc 6.3 g/dL Normal 6.0-8.5 Compreh ensive Internal Medicine Work Phone: Comment on above: PATIENT NOT FASTINGP ERFORMED BY: CIERRA Ellis6370 [facility] [id number] Sodium molar conc 141 mmol/L Normal 134-144 Compreh ensive Internal Medicine Work Phone: Comment on above: PATIENT NOT FASTINGP ERFORMED BY: CIERRA Alicia Shieldslin6370 [facility] [id number] Urea nitrogen mass conc 11 mg/dL Normal 8-27 [facility] Work Phone: Comment on above: PATIENT NOT FASTINGP ERFORMED BY: CIERRA Alicia Shieldslin6370 [facility] [id number] Urea nitrogen/Creatinine mass ratio 13 mg/mg Normal 10-22 [facility] Work Phone: Comment on above: PATIENT NOT FASTINGP ERFORMED BY: CIERRA Alicia Shieldslin6370 [facility] [id number] MICROALBUMINOrdered By: Syst em Environmental Services Lead on 07-04-2012 Albumin DL <= 20 mg/L mass conc (U) 9.7 ug/mL Normal 0.0-17.0 [facility] Work Phone: Comment on above: PATIENT NOT FASTINGP ERFORMED BY: CIERRA Jenncheri ShieldsGrlewr6485 [facility] [id number] Albumin/Creatinine mass ratio (U) 5.1 {mg/g_creat} Normal 0.0-30.0 [facility] Work Phone: Comment on above: PATIENT NOT FASTINGP ERFORMED BY: CIERRA Alicia Shieldslin6370 [facility] [id number] Creatinine mass conc (U) 189.6 mg/dL Normal 22.0-328.0 [facility] Work Phone: Comment on above: PATIENT NOT FASTINGP ERFORMED BY: CIERRA Jenncheri ShieldsRrzuhy9542 [facility] [id number] Microscopic ExaminationOrder ed By: Client Advisor on 07-04-2012 Bacteria LM.HPF #/area (Urine sed) Few Normal [facility] Work Phone: Comment on above: PATIENT NOT FASTINGP ERFORMED BY: CB [facility] Yycqqk5629 K[address]y RoadDublin [place] [id number] Epithelial cells LM.HPF #/area (Urine sed) 0-10 Normal 0 - 10 [facility] Work Phone: Comment on above: PATIENT NOT FASTINGP ERFORMED BY: CB [facility] Jpfgml2814 [address]y RoadDublin [place] [id number] Mucus LM Ql (Urine sed) Present Normal [facility] Work Phone: Mucus Ql (Urine sed) Present Normal Comp rehensive Internal Medicine Work Phone: Comment on above: PATIENT NOT FASTINGP ERFORMED BY: CB [facility] Kbrnaj4475 Khoury RoadDuke Healthin [place] [id number] RBC LM.HPF #/area (Urine sed) 0-3 Normal 0 - 3 [facility] Work Phone: Comment on above: PATIENT NOT FASTINGP ERFORMED BY: CB [facility] Iqeldy5537 [address] [facility] Hospitalblin [place] [id number] WBC LM.HPF #/area (Urine sed) 0-5 Normal 0 - 5 [facility] Work Phone: Comment on above: PATIENT NOT FASTINGP ERFORMED BY: CB [facility] Ieeqdg8643 [address] [facility] [id number] PSA (PROSTATE SPECIFIC ANTIG EN) (V76.44)Ordered By: Client Advisor on 07-04-2012 Prostate specific Ag mass conc 0.6 ng/mL Normal 0.0-4.0 [facility] Work Phone: Comment on above: Raji ECLIA methodol ogy. .According to the [place] [employer], Serum PSA shoulddecrease and remain at undetectable levels after radicalprostatectomy. The AUA defines biochemical recurrence as an initialPSA value 0.2 ng/mL or greater followed by a subsequent confirmatoryPSA value 0.2 ng/mL or greater.Values obtained with different assay methods or kits cannot be usedinterchangeably. Results cannot be interpreted as absolute evidenceof the presence or absence of malignant disease. send to dr jenny kumar; PATIENT NOT FASTINGPERFORMED BY: CB [facility] Bnbwua5920 Khoury RoadDublin [place] [id number] TSH ([id number])Ordered By: Syste m Environmental Services Lead on 07-04-2012 Thyrotropin Qn 1.960 {uIU/mL} Normal 0.450-4.50 0 [facility] Work Phone: Comment on above: PATIENT NOT FASTINGP ERFORMED BY: CB [facility] Zafrsv7573 Khoury RoadDublin [place] [id number] URINALYSIS, W/ MICRO ([id number]) Ordered By: Client Advisor on 07-04-2012 Appearance Nom (U) Clear Normal Compre hensive Internal Medicine Work Phone: Comment on above: PATIENT NOT FASTINGP ERFORMED BY: CB [facility] Oelmhn4036 [address]houry RoadDublin [place] [id number] Bilirubin Ql (U) Negative Normal Comprehe nsive Internal Medicine Work Phone: Comment on above: PATIENT NOT FASTINGP ERFORMED BY: CB [facility] Eyfopd3427 [address]y RoadDublin [place] [id number] Bilirubin Ql (U) Negative Normal Comprehe nsive Internal Medicine; [facility] Work Phone: Color Nom (U) Yellow Normal Comprehensi ve Internal Medicine Work Phone: Comment on above: PATIENT NOT FASTINGP ERFORMED BY: CB [facility] Whtwnf7753 [address]y RoadDublin [place] [id number] Glucose Ql (U) Negative Normal [facility] Work Phone: Comment on above: PATIENT NOT FASTINGP ERFORMED BY: CB [facility] Vvzetd1113 [address] RoadDublin [place] [id number] Glucose Ql (U) Negative Normal [facility]; [facility] Work Phone: Hemoglobin Ql (U) Negative Normal Compreh ensive [facility] Medicine Work Phone: Comment on above: PATIENT NOT FASTINGP ERFORMED BY: CIERRA [facility] Qenwrc2936 [address]y RoadDublin [place] [id number] Hemoglobin Ql (U) Negative Normal Compreh ensive [facility]; [facility] Work Phone: Hemoglobin Test strip Ql (U) Negative Normal [facility] Work Phone: Ketones Ql (U) Negative Normal [facility] Work Phone: Comment on above: PATIENT NOT FASTINGP ERFORMED BY: CIERRA [facility] Abamxh0980 [address] RoadDublin [place] [id number] Ketones Ql (U) Negative Normal [facility]; [facility] Work Phone: Leukocyte esterase Test strip Ql (U) Negative Normal [facility] Work Phone: Comment on above: PATIENT NOT FASTINGP ERFORMED BY: CIERRA [facility] Xavycn2156 Khoury RoadDuin [place] [id number] Leukocyte esterase Test strip Ql (U) Negative Normal [facility]; [facility] Work Phone: Microscopic observation LM Nom (Urine sed) See below: Normal [facility] Work Phone: Comment on above: PATIENT NOT FASTINGP ERFORMED BY: CIERRA [facility] Twdwiu4499 [address] RoadDuin [place] [id number] Microscopic observation LM Nom (Urine sed) MICRON Normal [facility] Work Phone: Comment on above: Microscopic follows if indicated. PATIENT NOT FASTINGP ERFORMED BY: CIERRA [facility] Blqfsw7839 [address]hour[address] RoadDuin [place] [id number] Nitrite Ql (U) Negative Normal [facility] Work Phone: Comment on above: PATIENT NOT FASTINGP ERFORMED BY: CIERRA [facility] Ukrxta0306 [address] RoadDublin [place] [id number] Nitrite Ql (U) Negative Normal [facility]; [facility] Work Phone: Nitrite Test strip Ql (U) Negative Normal [facility] Work Phone: pH (U) 5.5 [pH] Normal 5.0-7.5 [facility] Work Phone: Comment on above: PATIENT NOT FASTINGP ERFORMED BY: CIERRA Alicia Shieldslin[address] 5211gameBlue [facility] [id number] pH Test strip (U) 5.5 [pH] Normal 5.0-7.5 Compreh ensive [facility] Work Phone: Protein Ql (U) Negative Normal [facility] Work Phone: Comment on above: PATIENT NOT FASTINGP ERFORMED BY: CIERRA Jenncheri ShieldsEzzlli[address] 5211gameBlue Ridge Regional Hospital [id number] Protein Ql (U) Negative Normal [facility]; [facility] Work Phone: Protein Test strip Ql (U) Negative Normal [facility] Work Phone: Specific gravity Relative Density (U) 1.020 1 Normal 1.005-1.03 0 [facility] Work Phone: Comment on above: PATIENT NOT FASTINGP ERFORMED BY: CIERRA Jenncheri Iffwgq5147 [facility] [id number] Urobilinogen (U) [Mass/Vol] 0.2 mg/dL Normal 0.0-1.9 [facility]; [facility] Work Phone: Urobilinogen Test strip mass conc (U) 0.2 mg/dL Normal 0.0-1.9 Comprehensiv e [facility] Medicine Work Phone: Comment on above: PATIENT NOT FASTINGP ERFORMED BY: CIERRA LabKerrie Dfujdu[address] 5211gameBlue Ridge Regional Hospital [id number] Blood Glucose , Office ([phone])Ordered By: Richelle Campos on 05-19-2011 Glucose Glucometer molar conc (BldC) 180 1 Normal [facility] Work Phone: HgA1C , Office (55016)Ordere d By: Richelle Campos on 05-19-2011 Hemoglobin A1c/Hemoglobin.total mass fraction (Bld) 6.1 % Normal 4.6 - 7.1 Comprehensiv e [facility] Work Phone: CBC with manual diff ([id number]) Ordered By: Client Advisor on 04-30-2011 Basophils #/vol (Bld) 0.0 {x10E3/uL} Normal 0.0-0.2 [facility] Work Phone: Comment on above: PATIENT WAS FASTINGP ERFORMED BY: [place] [id number] [facility] [id number] Information: [id number] Basophils (Bld) [#/Vol] 0.0 10*3/uL Normal 0.0-0.2 [facility]; [facility] Work Phone: Basophils Auto #/vol (Bld) 0.0 {x10E3/uL} Normal 0.0-0.2 [facility] Work Phone: Basophils/100 WBC (Bld) 0 % Normal 0-3 [facility] Work Phone: Comment on above: PATIENT WAS FASTINGP ERFORMED BY: [place] [id number] [facility] [id number] Information: [id number] Basophils/100 WBC Auto (Bld) 0 % Normal 0-3 [facility] Work Phone: Eosinophils #/vol (Bld) 0.2 {x10E3/uL} Normal 0.0-0.4 [facility] Work Phone: Comment on above: PATIENT WAS FASTINGP ERFORMED BY: [place] [id number] [facility] [id number] Information: [id number] Eosinophils (Bld) [#/Vol] 0.2 10*3/uL Normal 0.0-0.4 [facility]; [facility] Work Phone: Eosinophils Auto #/vol (Bld) 0.2 {x10E3/uL} Normal 0.0-0.4 [facility] Work Phone: Eosinophils/100 WBC (Bld) 3 % Normal 0-7 [facility] Work Phone: Comment on above: PATIENT WAS FASTINGP ERFORMED BY: CIERRA [facility]6370 [facility] [id number] Information: [id number] Eosinophils/100 WBC Auto (Bld) 3 % Normal 0-7 [facility] Work Phone: Erythrocyte distribution width Auto Ratio (RBC) 13.9 % Normal 11.7-15.0 [facility] Work Phone: Erythrocyte distribution width Ratio (RBC) 13.9 % Normal 11.7-15.0 [facility] Internal Medicine Work Phone: Comment on above: PATIENT WAS FASTINGP ERFORMED BY: CIERRA [place] [id number] [facility] [id number] Information: [id number] Hematocrit Auto Volume Fraction (Bld) 43.9 % Normal 36.0-50.0 [facility] Internal Medicine Work Phone: Hematocrit Volume Fraction (Bld) 43.9 % Normal 36.0-50.0 [facility] Internal Medicine Work Phone: Comment on above: PATIENT WAS FASTINGP ERFORMED BY: CIERRA [place] [id number] [facility] [id number] Information: [id number] Hemoglobin mass conc (Bld) 15.2 g/dL Normal 12.5-17.0 [facility] Work Phone: Comment on above: PATIENT WAS FASTINGP ERFORMED BY: CIERRA [place] [id number] [facility] [id number] Information: [id number] Immature granulocytes #/vol (Bld) 0.0 {x10E3/uL} Normal 0.0-0.1 [facility] Work Phone: Comment on above: PATIENT WAS FASTINGP ERFORMED BY: CIERRA [place] [id number] [facility] [id number] Information: [id number] Immature granulocytes (Bld) [#/Vol] 0.0 10*3/uL Normal 0.0-0.1 [facility]; [facility] Work Phone: Immature granulocytes/100 WBC (Bld) 0 % Normal 0-2 [facility] Work Phone: Comment on above: Please note refere nce interval change PATIENT WAS FASTINGP ERFORMED BY: CIERRA [place] [id number] [facility] [id number] Information: [id number] Lymphocytes #/vol (Bld) 1.3 {x10E3/uL} Normal 0.7-4.5 [facility] Work Phone: Comment on above: PATIENT WAS FASTINGP ERFORMED BY: [address] [id number] Information: [id number] Lymphocytes (Bld) [#/Vol] 1.3 10*3/uL Normal 0.7-4.5 [facility]; [facility] Work Phone: Lymphocytes Auto #/vol (Bld) 1.3 {x10E3/uL} Normal 0.7-4.5 [facility] Work Phone: Lymphocytes/100 WBC (Bld) 20 % Normal [facility] Work Phone: Comment on above: PATIENT WAS FASTINGP ERFORMED BY: [place] [id number] [facility] [id number] Information: [id number] Lymphocytes/100 WBC Auto (Bld) 20 % Normal 14-46 [facility] Work Phone: MCH Auto Entitic mass (RBC) 31.2 pg Normal 27.0-34.0 [facility] Work Phone: MCH Entitic mass (RBC) 31.2 pg Normal 27.0-34.0 [facility] Work Phone: Comment on above: PATIENT WAS FASTINGP ERFORMED BY: [place] [id number] [facility] [id number] Information: [id number] MCHC Auto mass conc (RBC) 34.6 g/dL Normal 32.0-36.0 [facility] Work Phone: MCHC mass conc (RBC) 34.6 g/dL Normal 32.0-36.0 [facility] Internal Medicine Work Phone: Comment on above: PATIENT WAS FASTINGP ERFORMED BY: [address] [id number] Information: [id number] MCV Auto Entitic volume (RBC) 90 fL Normal 80-98 [facility] Work Phone: MCV Entitic volume (RBC) 90 fL Normal 80-98 [facility] Work Phone: Comment on above: PATIENT WAS FASTINGP ERFORMED BY: [address] [id number] Information: [id number] Monocytes #/vol (Bld) 0.4 {x10E3/uL} Normal 0.1-1.0 [facility] Work Phone: Comment on above: PATIENT WAS FASTINGP ERFORMED BY: [place] [id number] [facility] [id number] Information: [id number] Monocytes (Bld) [#/Vol] 0.4 10*3/uL Normal 0.1-1.0 [facility]; [facility] Work Phone: Monocytes Auto #/vol (Bld) 0.4 {x10E3/uL} Normal 0.1-1.0 [facility] Work Phone: Monocytes/100 WBC (Bld) 6 % Normal -13 [facility] Work Phone: Comment on above: PATIENT WAS FASTINGP ERFORMED BY: [place] [id number] [facility] [id number] Information: [id number] Monocytes/100 WBC Auto (Bld) 6 % Normal - [facility] Work Phone: Neutrophils #/vol (Bld) 4.6 {x10E3/uL} Normal 1.8-7.8 [facility] Work Phone: Comment on above: PATIENT WAS FASTINGP ERFORMED BY: CIERRA Painting70 [facility] [id number] Information: [id number] Neutrophils (Bld) [#/Vol] 4.6 10*3/uL Normal 1.8-7.8 [facility]; [facility] Work Phone: Neutrophils Auto #/vol (Bld) 4.6 {x10E3/uL} Normal 1.8-7.8 [facility] Work Phone: Neutrophils/100 WBC (Bld) 71 % Normal 40-74 [facility] Work Phone: Comment on above: PATIENT WAS FASTINGP ERFORMED BY: CIERRA Ellis6370 [facility] [id number] Information: [id number] Neutrophils/100 WBC Auto (Bld) 71 % Normal 40-74 [facility] Work Phone: Platelets #/vol (Bld) 198 {x10E3/uL} Normal 140-415 [facility] Work Phone: Comment on above: PATIENT WAS FASTINGP ERFORMED BY: CIERRA Ellis6370 [facility] [id number] Information: [id number] Platelets (Bld) [#/Vol] 198 10*3/uL Normal 140-415 [facility]; [facility] Work Phone: Platelets Auto #/vol (Bld) 198 {x10E3/uL} Normal 140-415 [facility] Work Phone: RBC #/vol (Bld) 4.87 {x10E6/uL} Normal 4.10-5.60 Comp [facility] Internal Medicine Work Phone: Comment on above: PATIENT WAS FASTINGP ERFORMED BY: CIERRA Shieldslin6370 [facility] [id number] Information: [id number] RBC (Bld) [#/Vol] 4.87 10*6/uL Normal 4.10-5.60 [facility] Internal [facility]; [facility] Work Phone: RBC Auto #/vol (Bld) 4.87 {x10E6/uL} Normal 4.10-5.60 [facility] Work Phone: WBC #/vol (Bld) 6.6 {x10E3/uL} Normal 4.0-10.5 [facility] Internal Medicine Work Phone: Comment on above: PATIENT WAS FASTINGP ERFORMED BY: CIERRA Ellis6370 [facility] [id number] Information: [id number] WBC (Bld) [#/Vol] 6.6 10*3/uL Normal 4.0-10.5 [facility] Internal [facility]; [facility] Work Phone: WBC Auto #/vol (Bld) 6.6 {x10E3/uL} Normal 4.0-10.5 [facility] Work Phone: Lipid Panel ([id number])Ordered B y: Client Advisor on 04-30-2011 Cholesterol in HDL mass conc 37 mg/dL Abnormal [facility] Work Phone: Comment on above: According to ATP-III Guidelines, HDL-C >59 mg/dL is considered anegative risk factor for CHD. PATIENT WAS FASTINGP ERFORMED BY: CIERRA Ellis6370 [facility] [id number] Cholesterol in LDL mass conc 122 mg/dL Abnormal 0-99 [facility] Work Phone: Comment on above: PATIENT WAS FASTINGP ERFORMED BY: CIERRA Shieldslin6370 [facility] [id number] Cholesterol in LDL/Cholesterol in HDL mass ratio 3.3 {ratio_units} Normal 0.0-3.6 [facility] Work Phone: Comment on above: PATIENT WAS FASTINGP ERFORMED BY: CIERRA Vargas Gmxfde3282 [facility] [id number] Cholesterol in VLDL mass conc 18 mg/dL Normal 5-40 [facility] Work Phone: Comment on above: PATIENT WAS FASTINGP ERFORMED BY: CIERRA Shieldslin6370 [facility] [id number] Cholesterol mass conc 177 mg/dL Normal 100-199 Com prehensive Internal Medicine Work Phone: Comment on above: PATIENT WAS FASTINGP ERFORMED BY: CIERRA Jenn Ixtxhg6037 [facility] [id number] Triglyceride mass conc 92 mg/dL Normal 0-149 [facility] Work Phone: Comment on above: PATIENT WAS FASTINGP ERFORMED BY: CIERRA Shieldslin6370 [facility] [id number] Metabolic Panel, Comprehensi ve ([id number])Ordered By: Client Advisor on 04-30-2011 Albumin mass conc 3.9 g/dL Normal 3.5-4.8 Compreh ensive Internal Medicine Work Phone: Comment on above: PATIENT WAS FASTINGP ERFORMED BY: CIERRA Jenn Kkokwg7759 [facility] [id number] Albumin/Globulin mass ratio 1.4 {ratio} Normal 1.1-2.5 [facility] Work Phone: Comment on above: PATIENT WAS FASTINGP ERFORMED BY: CIERRA [facility] Iqeggh5306 [facility] [id number] ALP [Catalytic activity/Vol] 118 U/L Normal 25-160 [facility]; [facility] Work Phone: ALP enzyme act/vol 118 [iU]/L Normal 25-160 Compre [facility] Internal Medicine Work Phone: Comment on above: PATIENT WAS FASTINGP ERFORMED BY: CIERRA Barajas Ggxhse3117 [facility] [id number] ALT [Catalytic activity/Vol] 13 U/L Normal 0-55 [facility]; [facility] Work Phone: ALT enzyme act/vol 13 [iU]/L Normal 0-55 [facility] Internal Medicine Work Phone: Comment on above: PATIENT WAS FASTINGP ERFORMED BY: CIERRA [facility] Hjvytf5218 Khoury RoadDublin [place] [id number] AST [Catalytic activity/Vol] 20 U/L Normal 0-40 [facility]; [facility] Work Phone: AST enzyme act/vol 20 [iU]/L Normal 0-40 [facility] Internal Medicine Work Phone: Comment on above: PATIENT WAS FASTINGP ERFORMED BY: CIERRA [facility] Mpxnuj3980 [address] RoadDublin [place] [id number] Bilirubin mass conc 0.7 mg/dL Normal 0.0-1.2 [facility] Internal Medicine Work Phone: Comment on above: PATIENT WAS FASTINGP ERFORMED BY: CIERRA [facility] Rxoucs5296 [address]y RoadDublin [place] [id number] Calcium mass conc 9.1 mg/dL Normal 8.6-10.[address] [facility] Internal [facility] Work Phone: Comment on above: PATIENT WAS FASTINGP ERFORMED BY: CIERRA [facility] Xhuhlt6593 K[address]y RoadDublin [place] [id number] Chloride molar conc 104 mmol/L Normal 97-108 [facility] Internal Medicine Work Phone: Comment on above: PATIENT WAS FASTINGP ERFORMED BY: CIERRA [facility] Gtbfgw9430 K[address] RoadDublin [place] [id number] CO2 molar conc 23 mmol/L Normal 20-32 Comprehens [facility] Internal Medicine Work Phone: Comment on above: PATIENT WAS FASTINGP ERFORMED BY: CIERRA [facility] Ezczrp2759 [address] RoadDublin [place] [id number] Creatinine mass conc 0.94 mg/dL Normal 0.76-1.[address] [facility] [address] [facility] Work Phone: Comment on above: PATIENT WAS FASTINGP ERFORMED BY: CIERRA [facility] Zymhai9587 [address]y RoadDublin [place] [id number] GFR/1.73 sq M predicted among blacks MDRD vol rate/area (S/P/Bld) 93 mL/min/{1.73_m2} Normal Comprehe nsive Internal Medicine Work Phone: Comment on above: Note: A persistent e GFR <60 mL/min/1.73 m2 (3 months or more) mayindicate chronic kidney disease. An eGFR >59 mL/min/1.73 m2 with anelevated urine protein also may indicate chronic kidney disease.Calculated using CKD-EPI formula. PATIENT WAS FASTINGP ERFORMED BY: CB [facility] Xynahz0692 [address] 5211gameBlue Ridge Regional Hospital [id number] GFR/1.73 sq M predicted among non-blacks CKD-EPI vol rate/area (S/P/Bld) 80 mL/min/1.73 Normal [facility] Work Phone: Comment on above: PATIENT WAS FASTINGP ERFORMED BY: MD Lingo[address] 5211gameBlue Ridge Regional Hospital [id number] Globulin Calculated mass conc (S) 2.7 g/dL Normal 1.5-4.5 [facility] Work Phone: Globulin mass conc (S) 2.7 g/dL Normal 1.5-4.5 [facility] Work Phone: Comment on above: PATIENT WAS FASTINGP ERFORMED BY: Shop[facility] Ykpfmc0488 [address] 5211gameBlue Ridge Regional Hospital [id number] Glucose mass conc 164 mg/dL Abnormal 65-99 Compreh ensive Internal Medicine Work Phone: Comment on above: PATIENT WAS FASTINGP ERFORMED BY: Shopo [facility] Pbonfw8843 [facility] [id number] Potassium molar conc 4.3 mmol/L Normal 3.5-5.2 Comp rehensive Internal Medicine Work Phone: Comment on above: PATIENT WAS FASTINGP ERFORMED BY: Shopo [facility] Qchxcb9344 [address] 5211gameBlue Ridge Regional Hospital [id number] Protein mass conc 6.6 g/dL Normal 6.0-8.5 Compreh ensive Internal Medicine Work Phone: Comment on above: PATIENT WAS FASTINGP ERFORMED BY: CIERRA [facility] Daupzn6424 Khoury Roadblin [place] [id number] Sodium molar conc 141 mmol/L Normal 135-145 Compreh ensive Internal Medicine Work Phone: Comment on above: PATIENT WAS FASTINGP ERFORMED BY: CIERRA [facility] Bogrym2726 K[address] Roadblin [place] [id number] Urea nitrogen mass conc 15 mg/dL Normal 8-27 [facility] Work Phone: Comment on above: PATIENT WAS FASTINGP ERFORMED BY: Lab[facility]6370 K[address] RoadDuke Healthin [place] [id number] Urea nitrogen/Creatinine mass ratio 16 mg/mg Normal 10-22 [facility] Work Phone: Comment on above: PATIENT WAS FASTINGP ERFORMED BY: CIERRA [facility] Ysnuwt[address] [facility] Centerin [place] [id number] TSH ([id number])Ordered By: Passlogixe m [employer] Lead on 04-30-2011 Thyrotropin Qn 1.820 {uIU/mL} Normal 0.450-4.50 0 [facility] Work Phone: Comment on above: PATIENT WAS FASTINGP ERFORMED BY: [facility] [facility] Centerin [place] [id number] URINALYSIS W/O MICRO ([id number]) Ordered By: Client Advisor on 04-30-2011 Appearance Nom (U) Clear Normal Compre hensive Internal Medicine Work Phone: Comment on above: PATIENT WAS FASTINGP ERFORMED BY: LabHed[facility] Cyeqaq9841 Khoury RoadDuke Healthin [place] [id number] Bilirubin Ql (U) Negative Normal Comprehe nsive Internal Medicine Work Phone: Comment on above: PATIENT WAS FASTINGP ERFORMED BY: LabCo Gsfnph2817 [address] RoadDublin [place] [id number] Bilirubin Ql (U) Negative Normal Comprehe nsive Internal Medicine; [facility] Work Phone: Color Nom (U) Yellow Normal Comprehensi ve Internal Medicine Work Phone: Comment on above: PATIENT WAS FASTINGP ERFORMED BY: CIERRA LabCocheri Kxtwqo1365 K[address] RoadDublin [place] [id number] Glucose Ql (U) Negative Normal Comprehens shawn Internal Medicine Work Phone: Comment on above: PATIENT WAS FASTINGP ERFORMED BY: CIERRA [facility] Wfljid9115 [address] RoadDublin [place] [id number] Glucose Ql (U) Negative Normal Comprehens shawn [facility]; [facility] Work Phone: Hemoglobin Ql (U) Negative Normal Compreh ensive Internal Medicine Work Phone: Comment on above: PATIENT WAS FASTINGP ERFORMED BY: CIERRA LabTierra ShieldsTeniub1384 K[address]y RoadDublin [place] [id number] Hemoglobin Ql (U) Negative Normal Compreh ensive Internal Medicine; [facility] Work Phone: Hemoglobin Test strip Ql (U) Negative Normal [facility] Work Phone: Ketones Ql (U) Negative Normal Comprehens shawn Internal Medicine Work Phone: Comment on above: PATIENT WAS FASTINGP ERFORMED BY: CIERRA LabCocheri ShieldsUdzidr1989 K[address]y RoadDublin [place] [id number] Ketones Ql (U) Negative Normal Comprehens shawn Internal Medicine; [facility] Work Phone: Leukocyte esterase Test strip Ql (U) Negative Normal [facility] Work Phone: Comment on above: PATIENT WAS FASTINGP ERFORMED BY: CIERRA LabCocheri ShieldsZyfimq3264 K[address]y RoadDublin [place] [id number] Leukocyte esterase Test strip Ql (U) Negative Normal [facility]; [facility] Work Phone: Microscopic observation LM Nom (Urine sed) MICRON Normal [facility] Work Phone: Comment on above: Microscopic follows if indicated. PATIENT WAS FASTINGP ERFORMED BY: CIERRA [facility] Nlsocn1242 [address] RoadDublin [place] [id number] Nitrite Ql (U) Negative Normal Comprehens shawn Internal Medicine Work Phone: Comment on above: PATIENT WAS FASTINGP ERFORMED BY: CIERRA LabTierra ShieldsYpdctn0098 K[address] RoadDublin [place] [id number] Nitrite Ql (U) Negative Normal Comprehens shawn Internal Medicine; [facility] Work Phone: Nitrite Test strip Ql (U) Negative Normal [facility] Work Phone: pH (U) 6.5 [pH] Normal 5.0-7.5 [facility] Work Phone: Comment on above: PATIENT WAS FASTINGP ERFORMED BY: CIERRA LabTierra ShieldsGxdkhe1680 K[address] RoadDublin [place] [id number] pH Test strip (U) 6.5 [pH] Normal 5.0-7.5 Compreh ensive Internal Medicine Work Phone: Protein Ql (U) Negative Normal Comprehens shawn Internal Medicine Work Phone: Comment on above: PATIENT WAS FASTINGP ERFORMED BY: CIERRA Ellis[address] [place] [id number] Protein Ql (U) Negative Normal Comprehens shawn Internal Medicine; [facility] Work Phone: Protein Test strip Ql (U) Negative Normal [facility] Work Phone: Specific gravity Relative Density (U) 1.023 1 Normal 1.005-1.03 0 [facility] Work Phone: Comment on above: PATIENT WAS FASTINGP ERFORMED BY: CIERRA Ellis[address] [facility] [id number] Urobilinogen (U) [Mass/Vol] 0.2 mg/dL Normal 0.0-1.9 [facility]; [facility] Work Phone: Urobilinogen Test strip mass conc (U) 0.2 mg/dL Normal 0.0-1.9 Comprehensiv e Internal Medicine Work Phone: Comment on above: PATIENT WAS FASTINGP ERFORMED BY: CIERRA LabTierra Tdfzje[address] [facility] HospitalDublin [place] [id number] Blood Glucose , Office (8296 2)Ordered By: Richelle Campos on 02-15-2011 Glucose Glucometer molar conc (BldC) 151 1 Normal [facility] Work Phone: HgA1C , Office (02691)Abelardo monteiro By: Richelle Campos on 02-15-2011 Hemoglobin A1c/Hemoglobin.total mass fraction (Bld) 6.5 % Normal 4.6 - 7.1 Comprehensiv e Internal Medicine Work Phone: HEPATIC FUNCTION PANEL ([phone] 6)Ordered By: Client Advisor on 01-27-2011 Albumin mass conc 4.3 g/dL Normal 3.5-4.8 Compreh ensive Internal Medicine Work Phone: Comment on above: PATIENT WAS FASTINGP ERFORMED BY: CIERRA LabCocheri ShieldsSueppe4605 [facility] [id number] Information: [id number] ALP [Catalytic activity/Vol] 109 U/L Normal 25-160 [facility]; [facility] Work Phone: ALP enzyme act/vol 109 [iU]/L Normal 25-160 Compre [facility] Internal Medicine Work Phone: Comment on above: PATIENT WAS FASTINGP ERFORMED BY: CIERRA [facility] Bkahsx0644 [facility] [id number] Information: [id number] ALT [Catalytic activity/Vol] 12 U/L Normal 0-55 [facility]; [facility] Work Phone: ALT enzyme act/vol 12 [iU]/L Normal 0-55 [facility] Internal Medicine Work Phone: Comment on above: PATIENT WAS FASTINGP ERFORMED BY: CIERRA [facility] Nxwjqv3340 [facility] [id number] Information: [id number] AST [Catalytic activity/Vol] 18 U/L Normal 0-40 [facility]; [facility] Work Phone: AST enzyme act/vol 18 [iU]/L Normal 0-40 [facility] Internal Medicine Work Phone: Comment on above: PATIENT WAS FASTINGP ERFORMED BY: CIERRA [facility] Hwgzpo6691 [facility] [id number] Information: [id number] Bilirubin mass conc 0.9 mg/dL Normal 0.0-1.2 [facility]pr [facility] Internal Medicine Work Phone: Comment on above: PATIENT WAS FASTINGP ERFORMED BY: CIERRA Barajas Dziiar5276 [facility] [id number] Information: [id number] Bilirubin.direct mass conc 0.19 mg/dL Normal 0.00-0.40 [facility] Work Phone: Comment on above: PATIENT WAS FASTINGP ERFORMED BY: LabCoAstra Health CenterIqrrpj7466 [facility] [id number] Information: [id number] Protein mass conc 6.9 g/dL Normal 6.0-8.5 [facility]pre[facility] Internal Medicine Work Phone: Comment on above: PATIENT WAS FASTINGP ERFORMED BY: CIERRA TejaHenry [facility] Hospital6370 [facility] [id number] Information: [id number] LIPID PANEL ([id number])Ordered B y: Client Advisor on 01-27-2011 Cholesterol in HDL mass conc 36 mg/dL Abnormal [facility] Work Phone: Comment on above: According to ATP-III Guidelines, HDL-C >59 mg/dL is considered anegative risk factor for CHD. PATIENT WAS FASTINGP ERFORMED BY: [facility] Rkcqvb4917 [facility] [id number] Cholesterol in LDL mass conc 114 mg/dL Abnormal 0-99 [facility] Work Phone: Comment on above: PATIENT WAS FASTINGP ERFORMED BY: [facility] Hjmqcz7541 [facility] [id number] Cholesterol in LDL/Cholesterol in HDL mass ratio 3.2 {ratio_units} Normal 0.0-3.6 [facility] Work Phone: Comment on above: PATIENT WAS FASTINGP ERFORMED BY: [facility]Co Ptabml8225 [facility] [id number] Cholesterol in VLDL mass conc 24 mg/dL Normal 5-40 [facility] Work Phone: Comment on above: PATIENT WAS FASTINGP ERFORMED BY: CIERRA Jenncheri Htkjat5847 [facility] [id number] Cholesterol mass conc 174 mg/dL Normal 100-199 Com prehensive Internal Medicine Work Phone: Comment on above: PATIENT WAS FASTINGP ERFORMED BY: CIERRA Shieldslin6370 [facility] [id number] Triglyceride mass conc 119 mg/dL Normal 0-149 [facility] Work Phone: Comment on above: PATIENT WAS FASTINGP ERFORMED BY: CIERRA Vargas Efskzi7347 [facility] [id number] Blood Glucose , Office ([phone])Ordered By: Richelle Campos on 10-22-2010 Glucose Glucometer molar conc (BldC) 113 1 Normal [facility] Work Phone: HgA1C , Office ([phone])Ordere d By: Richelle Campos on 10-22-2010 Hemoglobin A1c/Hemoglobin.total mass fraction (Bld) 6.2 % Normal 4.6 - 7.1 Comprehensiv e Internal Medicine Work Phone: HEPATIC FUNCTION PANEL ([phone])Ordered By: Client Advisor on 10-15-2010 Albumin mass conc 4.4 g/dL Normal 3.5-4.8 Compreh ensive Internal Medicine Work Phone: Comment on above: PATIENT WAS FASTINGP ERFORMED BY: CIERRA Vargas Mdwjzw5065 [facility] [id number] ALP [Catalytic activity/Vol] 132 U/L Normal 25-160 [facility]; [facility] Work Phone: ALP enzyme act/vol 132 [iU]/L Normal 25-160 Compre hensive Internal Medicine Work Phone: Comment on above: PATIENT WAS FASTINGP ERFORMED BY: CIERRA JennAstra Health CenterFmteyn2054 [facility] [id number] ALT [Catalytic activity/Vol] 16 U/L Normal 0-55 [facility]; [facility] Work Phone: ALT enzyme act/vol 16 [iU]/L Normal 0-55 [facility] Internal Medicine Work Phone: Comment on above: PATIENT WAS FASTINGP ERFORMED BY: CIERRA LabCocheri Lxxqfn5196 [facility] [place] [id number] AST [Catalytic activity/Vol] 22 U/L Normal 0-40 [facility] Internal Medicine; [facility] Internal Medicine Work Phone: AST enzyme act/vol 22 [iU]/L Normal 0-40 [facility] Internal Medicine Work Phone: Comment on above: PATIENT WAS FASTINGP ERFORMED BY: CIERRA [facility] Hqnspr3413 Khoury [facility] [id number] Bilirubin mass conc 0.8 mg/dL Normal 0.0-1.2 [facility] Internal Medicine Work Phone: Comment on above: PATIENT WAS FASTINGP ERFORMED BY: CIERRA [facility] Nsuqhm2900 Khoury [facility] [id number] Bilirubin.direct mass conc 0.19 mg/dL Normal 0.00-0.40 [facility] Internal Medicine Work Phone: Comment on above: PATIENT WAS FASTINGP ERFORMED BY: CIERRA LabCocheri Kmuilv9562 Khoury [facility] [id number] Protein mass conc 7.0 g/dL Normal 6.0-8.5 [facility] Internal Medicine Work Phone: Comment on above: PATIENT WAS FASTINGP ERFORMED BY: CIERRA [facility] Icnucf4420 [facility] [id number] LIPID PANEL ([id number])Ordered B y: Client Advisor on 10-15-2010 Cholesterol in HDL mass conc 40 mg/dL Normal [facility] Internal Medicine Work Phone: Comment on above: According to ATP-III Guidelines, HDL-C >59 mg/dL is considered anegative risk factor for CHD. PATIENT WAS FASTINGP ERFORMED BY: CIERRA [facility] Xrlxyb5528 [facility] [place] [id number] Cholesterol in LDL mass conc 134 mg/dL Abnormal 0-99 [facility] Work Phone: Comment on above: PATIENT WAS FASTINGP ERFORMED BY: CIERRA Shieldslin6370 [facility] [id number] Cholesterol in LDL/Cholesterol in HDL mass ratio 3.4 {ratio_units} Normal 0.0-3.6 [facility] Work Phone: Comment on above: PATIENT WAS FASTINGP ERFORMED BY: CIERRA Shieldslin6370 [facility] [id number] Cholesterol in VLDL mass conc 16 mg/dL Normal 5-40 [facility] Work Phone: Comment on above: PATIENT WAS FASTINGP ERFORMED BY: CIERRA Shieldslin6370 [facility] [id number] Cholesterol mass conc 190 mg/dL Normal 100-199 [facility] prehensive Internal Medicine Work Phone: Comment on above: PATIENT WAS FASTINGP ERFORMED BY: CIERRA Shieldslin6370 [facility] [id number] Triglyceride mass conc 79 mg/dL Normal 0-149 [facility] Work Phone: Comment on above: PATIENT WAS FASTINGP ERFORMED BY: CIERRA Shieldslin6370 [facility] [id number] Blood Glucose , Office ([phone])Ordered By: Richelle Campos on 07-16-2010 Glucose Glucometer molar conc (BldC) 136 1 Normal [facility] Work Phone: HgA1C , Office ([phone])Ordere d By: Richelle Campos on 07-16-2010 Hemoglobin A1c/Hemoglobin.total mass fraction (Bld) 6.3 % Normal 4.6 - 7.1 Comprehensiv e Internal Medicine Work Phone: CBC WITH MANUAL DIFF ([phone]) Ordered By: Client Advisor on 07-09-2010 Basophils #/vol (Bld) 0.0 {x10E3/uL} Normal 0.0-0.2 [facility] Work Phone: Comment on above: PATIENT WAS FASTINGP ERFORMED BY: CIERRA Shieldslin6370 [facility] [id number] Information: [id number] Basophils (Bld) [#/Vol] 0.0 10*3/uL Normal 0.0-0.2 [facility]; [facility] Work Phone: Basophils Auto #/vol (Bld) 0.0 {x10E3/uL} Normal 0.0-0.2 [facility] Work Phone: Basophils/100 WBC (Bld) 0 % Normal 0-3 [facility] Work Phone: Comment on above: PATIENT WAS FASTINGP ERFORMED BY: [facility] HospitalWellikoMichele Ville [id number] [facility] [id number] Information: [id number] Basophils/100 WBC Auto (Bld) 0 % Normal 0-3 [facility] Work Phone: Eosinophils #/vol (Bld) 0.2 {x10E3/uL} Normal 0.0-0.4 [facility] Work Phone: Comment on above: PATIENT WAS FASTINGP ERFORMED BY: RawporterAstra Health CenterQtcsmw6249 [facility] [id number] Information: [id number] Eosinophils (Bld) [#/Vol] 0.2 10*3/uL Normal 0.0-0.4 [facility]; [facility] Work Phone: Eosinophils Auto #/vol (Bld) 0.2 {x10E3/uL} Normal 0.0-0.4 [facility] Work Phone: Eosinophils/100 WBC (Bld) 3 % Normal 0-7 [facility] Work Phone: Comment on above: PATIENT WAS FASTINGP ERFORMED BY: [facility]6370 [facility] [id number] Information: [id number] Eosinophils/100 WBC Auto (Bld) 3 % Normal 0-7 [facility] Work Phone: Erythrocyte distribution width Auto Ratio (RBC) 14.0 % Normal 11.7-15.0 [facility] Work Phone: Erythrocyte distribution width Ratio (RBC) 14.0 % Normal 11.7-15.0 [facility] Internal Medicine Work Phone: Comment on above: PATIENT WAS FASTINGP ERFORMED BY: CIERRA [facility] Qozakm4911 [facility] [id number] Information: [id number] Hematocrit Auto Volume Fraction (Bld) 46.1 % Normal 36.0-50.0 [facility] Internal Medicine Work Phone: Hematocrit Volume Fraction (Bld) 46.1 % Normal 36.0-50.0 [facility] Internal Medicine Work Phone: Comment on above: PATIENT WAS FASTINGP ERFORMED BY: CIERRA [facility] Osqdjh1628 [facility] [id number] Information: [id number] Hemoglobin mass conc (Bld) 15.2 g/dL Normal 12.5-17.0 [facility] Work Phone: Comment on above: PATIENT WAS FASTINGP ERFORMED BY: CIERRA [place] [id number] [facility] [id number] Information: [id number] Immature granulocytes #/vol (Bld) 0.0 {x10E3/uL} Normal 0.0-0.1 [facility] Work Phone: Comment on above: PATIENT WAS FASTINGP ERFORMED BY: CIERRA [facility]6370 [facility] [id number] Information: [id number] Immature granulocytes (Bld) [#/Vol] 0.0 10*3/uL Normal 0.0-0.1 [facility]; [facility] Work Phone: Immature granulocytes/100 WBC (Bld) 0 % Normal 0-1 [facility] Work Phone: Comment on above: PATIENT WAS FASTINGP ERFORMED BY: [place] [id number] [facility] [id number] Information: [id number] Lymphocytes #/vol (Bld) 1.3 {x10E3/uL} Normal 0.7-4.5 [facility] Work Phone: Comment on above: PATIENT WAS FASTINGP ERFORMED BY: [place] 7228270 [facility] [id number] Information: [id number] Lymphocytes (Bld) [#/Vol] 1.3 10*3/uL Normal 0.7-4.5 [facility]; [facility] Work Phone: Lymphocytes Auto #/vol (Bld) 1.3 {x10E3/uL} Normal 0.7-4.5 [facility] Work Phone: Lymphocytes/100 WBC (Bld) 15 % Normal 14-46 [facility] Work Phone: Comment on above: PATIENT WAS FASTINGP ERFORMED BY: [place] [id number] [facility] [id number] Information: [id number] Lymphocytes/100 WBC Auto (Bld) 15 % Normal 14-46 [facility] Work Phone: MCH Auto Entitic mass (RBC) 30.0 pg Normal 27.0-34.0 [facility] Work Phone: MCH Entitic mass (RBC) 30.0 pg Normal 27.0-34.0 [facility] Work Phone: Comment on above: PATIENT WAS FASTINGP ERFORMED BY: [place] [id number] [facility] [id number] Information: [id number] MCHC Auto mass conc (RBC) 33.0 g/dL Normal 32.0-36.0 [facility] Work Phone: MCHC mass conc (RBC) 33.0 g/dL Normal 32.0-36.0 Comp [facility] Internal Medicine Work Phone: Comment on above: PATIENT WAS FASTINGP ERFORMED BY: [place] [id number] [facility] [id number] Information: [id number] MCV Auto Entitic volume (RBC) 91 fL Normal 80-98 [facility] Work Phone: MCV Entitic volume (RBC) 91 fL Normal 80-98 [facility] Work Phone: Comment on above: PATIENT WAS FASTINGP ERFORMED BY: CIERRA [facility] Hospitalcheri ShieldsUjenmy[address] [id number] Information: [id number] Monocytes #/vol (Bld) 0.5 {x10E3/uL} Normal 0.1-1.0 [facility] Work Phone: Comment on above: PATIENT WAS FASTINGP ERFORMED BY: CIERRA [facility] HospitalTierra [address] [id number] Information: [id number] Monocytes (Bld) [#/Vol] 0.5 10*3/uL Normal 0.1-1.0 [facility]; [facility] Work Phone: Monocytes Auto #/vol (Bld) 0.5 {x10E3/uL} Normal 0.1-1.0 [facility] Work Phone: Monocytes/100 WBC (Bld) 5 % Normal 4-13 [facility] Work Phone: Comment on above: PATIENT WAS FASTINGP ERFORMED BY: CIERRA [facility] Hospitalcheri ShieldsKfnpmi0657 [facility] [id number] Information: [id number] Monocytes/100 WBC Auto (Bld) 5 % Normal 4-13 [facility] Work Phone: Neutrophils #/vol (Bld) 6.7 {x10E3/uL} Normal 1.8-7.8 [facility] Work Phone: Comment on above: PATIENT WAS FASTINGP ERFORMED BY: CIERRA [place] [id number] [facility] [id number] Information: [id number] Neutrophils (Bld) [#/Vol] 6.7 10*3/uL Normal 1.8-7.8 [facility]; [facility] Work Phone: Neutrophils Auto #/vol (Bld) 6.7 {x10E3/uL} Normal 1.8-7.8 [facility] Work Phone: Neutrophils/100 WBC (Bld) 77 % Abnormal 40-74 [facility] Work Phone: Comment on above: PATIENT WAS FASTINGP ERFORMED BY: CIERRA TeachernowTxcheri ShieldsYsjvxv7215 [facility] [id number] Information: [id number] Neutrophils/100 WBC Auto (Bld) 77 % Abnormal 40-74 [facility] Work Phone: Platelets #/vol (Bld) 198 {x10E3/uL} Normal 140-415 [facility] Work Phone: Comment on above: PATIENT WAS FASTINGP ERFORMED BY: CIERRA RawporterAstra Health CenterWcpjas4528 [facility] [id number] Information: [id number] Platelets (Bld) [#/Vol] 198 10*3/uL Normal 140-415 [facility]; [facility] Work Phone: Platelets Auto #/vol (Bld) 198 {x10E3/uL} Normal 140-415 [facility] Work Phone: RBC #/vol (Bld) 5.07 {x10E6/uL} Normal 4.10-5.60 [facility] Internal Medicine Work Phone: Comment on above: PATIENT WAS FASTINGP ERFORMED BY: CIERRA [facility]6370 [facility] [id number] Information: [id number] RBC (Bld) [#/Vol] 5.07 10*6/uL Normal 4.10-5.60 [facility] Internal Medicine; [facility] Work Phone: RBC Auto #/vol (Bld) 5.07 {x10E6/uL} Normal 4.10-5.60 [facility] Work Phone: WBC #/vol (Bld) 8.8 {x10E3/uL} Normal 4.0-10.5 [facility]erens[facility] Internal [facility] Work Phone: Comment on above: PATIENT WAS FASTINGP ERFORMED BY: CIERRA TeachernowTierra Ossipo2349 [facility] [id number] Information: [id number] WBC (Bld) [#/Vol] 8.8 10*3/uL Normal 4.0-10.5 Compre [facility] Internal Medicine; [facility] Work Phone: WBC Auto #/vol (Bld) 8.8 {x10E3/uL} Normal 4.0-10.5 [facility] Work Phone: LIPID PANEL ([id number])Ordered B y: Client Advisor on 07-09-2010 Cholesterol in HDL mass conc 38 mg/dL Abnormal [facility] Work Phone: Comment on above: According to ATP-III Guidelines, HDL-C >59 mg/dL is considered anegative risk factor for CHD. PATIENT WAS FASTINGP ERFORMED BY: CIERRA Rawporter Ljxjap0573 [facility] [id number] Cholesterol in LDL mass conc 123 mg/dL Abnormal 0-99 [facility] Work Phone: Comment on above: PATIENT WAS FASTINGP ERFORMED BY: CIERRA Rawporter Oaqjhk6403 [facility] [id number] Cholesterol in LDL/Cholesterol in HDL mass ratio 3.2 {ratio_units} Normal 0.0-3.6 [facility] Work Phone: Comment on above: PATIENT WAS FASTINGP ERFORMED BY: CIERRA [facility] Ovpudt2283 [facility] [id number] Cholesterol in VLDL mass conc 12 mg/dL Normal 5-40 [facility] Work Phone: Comment on above: PATIENT WAS FASTINGP ERFORMED BY: CIERRA LabWellikorp Kjmmvp4888 [facility] [id number] Cholesterol mass conc 173 mg/dL Normal 100-199 Com prehensive Internal Medicine Work Phone: Comment on above: PATIENT WAS FASTINGP ERFORMED BY: CIERRA LabTierra ShieldsTwsjng3416 [facility] [id number] Triglyceride mass conc 59 mg/dL Normal 0-149 [facility] Work Phone: Comment on above: PATIENT WAS FASTINGP ERFORMED BY: CIERRA LabKerrie Vbtfru2074 [facility] [id number] METABOLIC PANEL, COMPREHENSI VE ([phone])Ordered By: Client Advisor on 07-09-2010 Albumin mass conc 3.9 g/dL Normal 3.5-4.8 Compreh [facility] Internal Medicine Work Phone: Comment on above: PATIENT WAS FASTINGP ERFORMED BY: CIERRA Shieldslin6370 [facility] [id number] Albumin/Globulin mass ratio 1.4 {ratio} Normal 1.1-2.5 [facility] Work Phone: Comment on above: PATIENT WAS FASTINGP ERFORMED BY: Jenn Zqcfbx2450 [facility] [id number] ALP [Catalytic activity/Vol] 116 U/L Normal 25-160 [facility]; [facility] Internal Medicine Work Phone: ALP enzyme act/vol 116 [iU]/L Normal 25-160 [facility] Internal Medicine Work Phone: Comment on above: PATIENT WAS FASTINGP ERFORMED BY: CIERRA LabKerrie Uzrysf0288 [facility] [id number] ALT [Catalytic activity/Vol] 14 U/L Normal 0-55 [facility]; [facility] Work Phone: ALT enzyme act/vol 14 [iU]/L Normal 0-55 [facility] Internal Medicine Work Phone: Comment on above: PATIENT WAS FASTINGP ERFORMED BY: CIERRA LabCo Hobnrq0286 [facility] [id number] AST [Catalytic activity/Vol] 21 U/L Normal 0-40 [facility]; [facility] Work Phone: AST enzyme act/vol 21 [iU]/L Normal 0-40 Compre [facility] Internal Medicine Work Phone: Comment on above: PATIENT WAS FASTINGP ERFORMED BY: CIERRA LabCocheri ShieldsIqnpor5410 Khoury [facility] [id number] Bilirubin mass conc 0.9 mg/dL Normal 0.0-1.2 Compr ensive Internal Medicine Work Phone: Comment on above: PATIENT WAS FASTINGP ERFORMED BY: CIERRA [facility] Hoemvh6584 Khoury [facility] [id number] Calcium mass conc 8.6 mg/dL Normal 8.6-10.2 Compreh ensive Internal Medicine Work Phone: Comment on above: PATIENT WAS FASTINGP ERFORMED BY: CIERRA LabCocheri ShieldsCimbil5959 [facility] [id number] Chloride molar conc 107 mmol/L Normal 97-108 Compr [facility] Internal Medicine Work Phone: Comment on above: PATIENT WAS FASTINGP ERFORMED BY: CIERRA LabCocheri Zfurso3378 [facility] [id number] CO2 molar conc 21 mmol/L Normal 20-32 Comprehens shawn Internal Medicine Work Phone: Comment on above: PATIENT WAS FASTINGP ERFORMED BY: CIERRA LabCocheri Yycpug2723 [facility] [id number] Creatinine mass conc 0.91 mg/dL Normal 0.76-1.27 Comp [facility] Internal Medicine Work Phone: Comment on above: PATIENT WAS FASTINGP ERFORMED BY: CIERRA [facility] Cubfxf0016 [facility] [id number] GFR/1.73 sq M predicted among blacks MDRD vol rate/area (S/P/Bld) mL/min/{1.73_m2} Normal Comprehensi ve Internal Medicine Work Phone: Comment on above: Note: Persistent red uction for 3 months or more in an eGFR<60 mL/min/1.73 m2 defines CKD. Patients with eGFR values>/=60 mL/min/1.73 m2 may also have CKD if evidence of persistentproteinuria is present. Additional information may be found [email or web address]. PATIENT WAS FASTINGP ERFORMED BY: CIERRA LabTxcheri ShieldsLzavxh4173 [facility] [id number] GFR/1.73 sq M.predicted MDRD (S/P/Bld) [Vol rate/Area] mL/min/{1.73_m2} Normal [facility] Work Phone: Comment on above: PATIENT WAS FASTINGP ERFORMED BY: CIERRA [facility] Xnsdnb8367 [facility] [id number] GFR/1.73 sq M.predicted MDRD vol rate/area mL/min/{1.73_m2} Normal [facility] Work Phone: Comment on above: PATIENT WAS FASTINGP ERFORMED BY: CIERRA LezamaTxcheri ShieldsKbdzqa5308 [facility] [id number] Globulin Calculated mass conc (S) 2.7 g/dL Normal 1.5-4.5 [facility] Work Phone: Globulin mass conc (S) 2.7 g/dL Normal 1.5-4.5 [facility] Work Phone: Comment on above: PATIENT WAS FASTINGP ERFORMED BY: CIERRA Shieldslin6370 [facility] [id number] Glucose mass conc 96 mg/dL Normal 65-99 Compreh ensive Internal Medicine Work Phone: Comment on above: PATIENT WAS FASTINGP ERFORMED BY: CIERRA [facility]zamaHedrick Medical Center Ytvbvv8105 [facility] [id number] Potassium molar conc 4.3 mmol/L Normal 3.5-5.2 Comp rehensive Internal Medicine Work Phone: Comment on above: PATIENT WAS FASTINGP ERFORMED BY: CIERRA LabHedrick Medical Center Ryiaoq8682 [facility] [id number] Protein mass conc 6.6 g/dL Normal 6.0-8.5 Compreh ensive Internal Medicine Work Phone: Comment on above: PATIENT WAS FASTINGP ERFORMED BY: CB LabAlbert Ville 8276870 [facility] [id number] Sodium molar conc 140 mmol/L Normal 135-145 Compreh ensive Internal Medicine Work Phone: Comment on above: PATIENT WAS FASTINGP ERFORMED BY: CIERRA Ellis6370 [facility] [id number] Urea nitrogen mass conc 15 mg/dL Normal 5-26 [facility] Work Phone: Comment on above: PATIENT WAS FASTINGP ERFORMED BY: CIERRA Barajas Flxmeu9414 Pike [facility] [id number] Urea nitrogen/Creatinine mass ratio 16 mg/mg Normal 8-27 [facility] Work Phone: Comment on above: PATIENT WAS FASTINGP ERFORMED BY: CIERRA Shieldslin6370 [facility] [id number] MICROALBUMINOrdered By: [employer] em Environmental Services Lead on 07-09-2010 Albumin DL <= 20 mg/L mass conc (U) 9.0 ug/mL Normal 0.0-17.0 [facility] Work Phone: Comment on above: PATIENT WAS FASTINGP ERFORMED BY: CIERRA Barajas Cxkjta4373 [facility] [id number] Albumin/Creatinine mass ratio (U) 5.1 {mg/g_creat} Normal 0.0-30.0 [facility] Work Phone: Comment on above: PATIENT WAS FASTINGP ERFORMED BY: CIERAR Barajas Dyfikf0373 [facility] [id number] Creatinine mass conc (U) 175.1 mg/dL Normal 22.0-328.0 [facility] Work Phone: Comment on above: PATIENT WAS FASTINGP ERFORMED BY: CIERRA Barajas Oczhbi5413 [facility] [id number] TSH (97516)Ordered By: Passlogixe m Environmental Services Lead on 07-09-2010 Thyrotropin Qn 1.230 {uIU/mL} Normal 0.450-4.50 0 [facility] Work Phone: Comment on above: PATIENT WAS FASTINGP ERFORMED BY: Shopo [facility] Ttgtam2407 [facility] [id number] Blood Glucose , Office (8296 2)Ordered By: Richelle Campos on 04-17-2010 Glucose Glucometer molar conc (BldC) 163 1 Normal [facility] Work Phone: Comment on above: done km Blood Glucose , Office (8296 2)Ordered By: Richelle Campos on 01-16-2010 Glucose Glucometer molar conc (BldC) 168 1 Normal [facility] Work Phone: HgA1C , Office (38087)Ordere d By: Richelle Campos on 01-16-2010 Hemoglobin A1c/Hemoglobin.total mass fraction (Bld) 6.4 % Normal 4.6 - 7.1 Comprehensiv e Internal Medicine Work Phone: PSA Total+% FreeOrdered By: Client Advisor on 10-27-2009 Prostate specific Ag mass conc 4.9 ng/mL Abnormal 0.0-4.0 [facility] Work Phone: Comment on above: Raji ECLIA methodol ogy..According to the [place] [employer], Serum PSA shoulddecrease and remain at undetectable levels after radicalprostatectomy. The AUA defines biochemical recurrence as an initialPSA value 0.2 ng/mL or greater followed by a subsequent confirmatoryPSA value 0.2 ng/mL or greater.Values obtained with different assay methods or kits cannot be usedinterchangeably. Results cannot be interpreted as absolute evidenceof the presence or absence of malignant disease. PERFORMED BY: anfix6370 [employer] [place] [id number] PSA Free mass conc 0.93 ng/mL Normal [facility] Internal Medicine Work Phone: Comment on above: Raji ECLIA methodol ogy. PERFORMED BY: anfix6370 [employer] [place] [id number] PSA Free/Prostate specific Ag.total mass fraction 19.0 % Normal [facility] Work Phone: Comment on above: The table below list s the probability of prostate cancer formen with non-suspicious MAGALY results and total PSA between4 and 10 ng/mL, by patient age (Catalona et al, RENATE 1998,279:1542).% Free PSA 50-64 yr 65-75 yr0.00-10.00% 56% 55%10.01-15.00% 24% 35%15.01-20.00% 17% 23%20.01-25.00% 10% 20%>25.00% 5% 9%Please note: Coleen et al did not make specificrecommendations regarding the use ofpercent free PSA for any other populationof men. PERFORMED BY: Shopo Lab Tierra Tmhowu2076 Khoury BixUNC Health [facility] Ridge [id number] Blood Glucose , Office (8296 2)Ordered By: Richelle Campos on 10-17-2009 Glucose Glucometer molar conc ([facility]) 102 1 Normal [facility] Work Phone: Comment on above: done km CBC WITH MANUAL DIFF (28218) Ordered By: Client Advisor on 10-17-2009 Basophils #/vol (Bld) 0.0 {x10E3/uL} Normal 0.0-0.2 [facility] Work Phone: Comment on above: PATIENT WAS FASTINGP ERFORMED BY: fromAtoB [facility] [id number] BY: [employer]CoAlexis BittarGfcnua3816 BountiiBlue Ridge Regional Hospital [id number] Basophils (Bld) [#/Vol] 0.0 10*3/uL Normal 0.0-0.2 [facility]; [facility] Work Phone: Basophils Auto #/vol (Bld) 0.0 {x10E3/uL} Normal 0.0-0.2 [facility] Work Phone: Basophils/100 WBC (Bld) 0 % Normal 0-3 [facility] Work Phone: Comment on above: PATIENT WAS FASTINGP ERFORMED BY: fromAtoB [facility] [id number] BY: MD Lingo6370 [employer] InstrumentsUNC Health Blue Ridge [id number] Basophils/100 WBC Auto (Bld) 0 % Normal 0-3 [facility] Work Phone: Eosinophils #/vol (Bld) 0.1 {x10E3/uL} Normal 0.0-0.4 [facility] Work Phone: Comment on above: PATIENT WAS FASTINGP ERFORMED BY: S7 LipoSciSKY [employer] Dou9216 [facility] [id number] BY: CIERRA Ellis6370 Khoury 5211gameBlue Ridge Regional Hospital [id number] Eosinophils (Bld) [#/Vol] 0.1 10*3/uL Normal 0.0-0.4 [facility]; [facility] Work Phone: Eosinophils Auto #/vol (Bld) 0.1 {x10E3/uL} Normal 0.0-0.4 [facility] Work Phone: Eosinophils/100 WBC (Bld) 1 % Normal 0-7 [facility] Work Phone: Comment on above: PATIENT WAS FASTINGP ERFORMED BY: S7 [employer] [address] [place] [address] [id number] BY: CIERRA Ellis6370 [employer] 5211gameBlue Ridge Regional Hospital [id number] Eosinophils/100 WBC Auto (Bld) 1 % Normal 0-7 [facility] Work Phone: Erythrocyte distribution width Auto Ratio (RBC) 13.2 % Normal 11.7-15.0 [facility] Work Phone: Erythrocyte distribution width Ratio (RBC) 13.2 % Normal 11.7-15.0 [facility] Work Phone: Comment on above: PATIENT WAS FASTINGP ERFORMED BY: [employer] Fps6162 [facility] [id number] BY: CIERRA TeachernowTierra ShieldsKsaxjs2293 [facility] [id number] Hematocrit Auto Volume Fraction (Bld) 44.2 % Normal 36.0-50.0 Comprehens [facility] Internal Medicine Work Phone: Hematocrit Volume Fraction (Bld) 44.2 % Normal 36.0-50.0 [facility] Work Phone: Comment on above: PATIENT WAS FASTINGP ERFORMED BY: LipoScimercyone [facility] B[address] [place] [address] [id number] BY: CIERRA [facility]6370 [facility] [id number] Hemoglobin mass conc (Bld) 15.1 g/dL Normal 12.5-17.0 [facility] Work Phone: Comment on above: PATIENT WAS FASTINGP ERFORMED BY: LipoScimercyone [facility] [address] [place] [address] [id number] BY: CIERRA LabTierra ShieldsBygqrl0002 [facility] [id number] Lymphocytes #/vol (Bld) 2.6 {x10E3/uL} Normal 0.7-4.5 [facility] Work Phone: Comment on above: PATIENT WAS FASTINGP ERFORMED BY: [employer] K[address] [place] [address] [id number] BY: CIERRA LabTierra ShieldsNtryuj6544 [facility] [id number] Lymphocytes (Bld) [#/Vol] 2.6 10*3/uL Normal 0.7-4.5 [facility]; [facility] Work Phone: Lymphocytes Auto #/vol (Bld) 2.6 {x10E3/uL} Normal 0.7-4.5 [facility] Work Phone: Lymphocytes/100 WBC (Bld) 29 % Normal 14-46 [facility] Work Phone: Comment on above: PATIENT WAS FASTINGP ERFORMED BY: [employer] Pdy3006 [facility] [id number] BY: CIERRA LabHenry Ford Cottage Hospital6370 [facility] [id number] Lymphocytes/100 WBC Auto (Bld) 29 % Normal 14-46 [facility] Work Phone: MCH Auto Entitic mass (RBC) 30.9 pg Normal 27.0-34.0 [facility] Work Phone: MCH Entitic mass (RBC) 30.9 pg Normal 27.0-34.0 [facility] Work Phone: Comment on above: PATIENT WAS FASTINGP ERFORMED BY: LipoScimercyone [facility] Utd2771 [facility] [id number] BY: CIERRA Ellis6370 [facility] [id number] MCHC Auto mass conc (RBC) 34.2 g/dL Normal 32.0-36.0 [facility] Work Phone: MCHC mass conc (RBC) 34.2 g/dL Normal 32.0-36.0 [facility] Internal Medicine Work Phone: Comment on above: PATIENT WAS FASTINGP ERFORMED BY: [facility] HealthoSci[address] [id number] BY: CIERRA [facility] HospitalTierra ShieldsBeweye7525 [facility] [id number] MCV Auto Entitic volume (RBC) 90 fL Normal 80-98 [facility] Work Phone: MCV Entitic volume (RBC) 90 fL Normal 80-98 [facility] Work Phone: Comment on above: PATIENT WAS FASTINGP ERFORMED BY: LipoScimercyone [facility] Vyf5711 [facility] [id number] BY: CIERRA Ellis6370 [facility] [id number] Monocytes #/vol (Bld) 0.5 {x10E3/uL} Normal 0.1-1.0 [facility] Internal Medicine Work Phone: Comment on above: PATIENT WAS FASTINGP ERFORMED BY: [employer] Cyq0462 [facility] [id number] BY: CIERRA [facility] HospitalTierra Xuphln1890 [facility] [id number] Monocytes (Bld) [#/Vol] 0.5 10*3/uL Normal 0.1-1.0 [facility]; [facility] Work Phone: Monocytes Auto #/vol (Bld) 0.5 {x10E3/uL} Normal 0.1-1.0 [facility] Work Phone: Monocytes/100 WBC (Bld) 6 % Normal 4-13 [facility] Work Phone: Comment on above: PATIENT WAS FASTINGP ERFORMED BY: S7 [employer] [address] [facility] [id number] BY: CIERRA EVRGR Jjxezs8512 [facility] [id number] Monocytes/100 WBC Auto (Bld) 6 % Normal 4- [facility] Work Phone: Neutrophils #/vol (Bld) 5.8 {x10E3/uL} Normal 1.8-7.8 [facility] Work Phone: Comment on above: PATIENT WAS FASTINGP ERFORMED BY: S7 LipoSciSKY [employer] Ixk[address] [place] [address] [id number] BY: CIERRA eRALOS370 [facility] [id number] Neutrophils (Bld) [#/Vol] 5.8 10*3/uL Normal 1.8-7.8 [facility]; [facility] Work Phone: Neutrophils Auto #/vol (Bld) 5.8 {x10E3/uL} Normal 1.8-7.8 [facility] Work Phone: Neutrophils/100 WBC (Bld) 64 % Normal 40-74 [facility] Work Phone: Comment on above: PATIENT WAS FASTINGP ERFORMED BY: LipoSciSKY [employer] Technology Psh9467 [facility] [id number] BY: Rawporter Legwep3662 [facility] [id number] Neutrophils/100 WBC Auto (Bld) 64 % Normal 40-74 [facility] Work Phone: Platelets #/vol (Bld) 216 {x10E3/uL} Normal 140-415 [facility] Work Phone: Comment on above: PATIENT WAS FASTINGP ERFORMED BY: Serena [employer] Sbg8119 [facility] [id number] BY: CIERRA Ellis6370 [facility] [id number] Platelets (Bld) [#/Vol] 216 10*3/uL Normal 140-415 [facility]; [facility] Work Phone: Platelets Auto #/vol (Bld) 216 {x10E3/uL} Normal 140-415 [facility] Work Phone: RBC #/vol (Bld) 4.90 {x10E6/uL} Normal 4.10-5.60 Comp [facility] Internal [facility] Work Phone: Comment on above: PATIENT WAS FASTINGP ERFORMED BY: Serena [employer] Eko1294 [facility] [id number] BY: CIERRA Shieldslin6370 [facility] [id number] RBC (Bld) [#/Vol] 4.90 10*6/uL Normal 4.10-5.60 Compr [facility] Internal Medicine; [facility] Work Phone: RBC Auto #/vol (Bld) 4.90 {x10E6/uL} Normal 4.10-5.60 [facility] Work Phone: WBC #/vol (Bld) 9.0 {x10E3/uL} Normal 4.0-10.5 [facility] Internal Medicine Work Phone: Comment on above: PATIENT WAS FASTINGP ERFORMED BY: [employer] Uaw7758 [facility] [id number] BY: CIERRA [facility] HospitalTierra ShieldsMgejqc6154 [facility] [id number] WBC (Bld) [#/Vol] 9.0 10*3/uL Normal 4.0-10.5 Compre [facility] Internal Medicine; [facility] Work Phone: WBC Auto #/vol (Bld) 9.0 {x10E3/uL} Normal 4.0-10.5 [facility] Work Phone: HgA1C , Office (59006)Ordere d By: Richelle Campos on 10-17-2009 Hemoglobin A1c/Hemoglobin.total mass fraction (Bld) 6.8 % Normal 4.6 - 7.1 Comprehensiv e Internal Medicine Work Phone: Comment on above: done km LIPOPROTEIN, BLD, BY NMR (36 061)Ordered By: Client Advisor on 10-17-2009 Cholesterol in HDL [Mass/Vol] mg/dL Abnormal [facility] Work Phone: Comment on above: PATIENT WAS FASTINGP ERFORMED BY: S7 [employer] [address] [facility] [id number] BY: CIERRA LabCo Zfmlyd8429 [facility] [id number] Information: [id number] Cholesterol in HDL mass conc 37 mg/dL Abnormal [facility] Work Phone: Comment on above: PATIENT WAS FASTINGP ERFORMED BY: S7 [employer] [address] [facility] [id number] BY: CIERRA [facility] Infmoj4233 [facility] [id number] Information: [id number] Cholesterol in LDL mass conc 133 mg/dL Abnormal [facility] Work Phone: Comment on above: .Optimal < 100Above optimal 100 - 129Borderline 130 - 159High 160 - 189Very high > 189. PATIENT WAS FASTINGP ERFORMED BY: S7 [employer] [address] [facility] [id number] BY: CIERRA [facility] Oobyjv3626 [facility] [id number] Information: [id number] Cholesterol mass conc 194 mg/dL Normal Com prehensive Internal Medicine Work Phone: Comment on above: PATIENT WAS FASTINGP ERFORMED BY: S7 [employer] [address] [facility] [id number] BY: [facility] Jvpbkq0511 [facility] [id number] Information: [id number] Triglyceride mass conc 122 mg/dL Normal [facility] Work Phone: Comment on above: PATIENT WAS FASTINGP ERFORMED BY: S[address] [employer] [address] [facility] [id number] BY: [facility] Aezpww2184 [facility] [id number] Information: [id number] LIPOPROTEIN, BLD, BY NMR (94274) 2.6 nmol/L Normal [facility] Work Phone: Comment on above: Small LDL-P, LDL Par ticle Size, Large HDL-P and Large VLDL- Phave been validated by [employer] but not cleared by US FDA;the clinical utility of these test results has not been fully established. PATIENT WAS FASTINGP ERFORMED BY: S7 [employer] [address] [facility] [id number] BY: [facility]Co Dpshtz1956 [facility] [id number] Information: 589970,[id number] LIPOPROTEIN, BLD, BY NMR (91376) [facility] Normal [facility] Work Phone: Comment on above: High Risk: LDL-P <10 00Secondary goal: Small LDL-P <527Moderately High-Risk: LDL-P <1300Secondary goal: Small LDL-P <527 PATIENT WAS FASTINGP ERFORMED BY: S7 [employer] [address] [facility] [id number] BY: [facility] Leibhd7461 [facility] [id number] Information: [id number],G08302 LIPOPROTEIN, BLD, BY NMR (80897) 21.0 nm Normal [facility] Work Phone: Comment on above: .Small (Pattern B) 1 8.0 - 20.5Large (Pattern A) 20.6 - 23.0. PATIENT WAS FASTINGP ERFORMED BY: S7 [employer] [address] [facility] [id number] BY: [facility]6370 [facility] [id number] Information: 751706,M24731 LIPOPROTEIN, BLD, BY NMR (30964) < 0.7 Abnormal [facility] Work Phone: Comment on above: PATIENT WAS FASTINGP ERFORMED BY: S[address] [employer] [address] [facility] [id number] BY: [facility]Hed[facility] Qwqhxw8480 [facility] [id number] Information: 850103,[id number] LIPOPROTEIN, BLD, BY NMR (91056) 640 nmol/L Abnormal [facility] Work Phone: Comment on above: .Low < 117Moderate 1 17 - 526Borderline 527 - 839High > 839. PATIENT WAS FASTINGP ERFORMED BY: S7 [employer] [address]kd[address]06 [facility] [id number] BY: LabHed[facility] Fplmbt5188 [facility] [id number] Information: [id number],[id number] LIPOPROTEIN, BLD, BY NMR (68675) 1592 nmol/L Abnormal [facility] Work Phone: Comment on above: .Optimal < 1000Above optimal 1000 - 1299Borderline 1300 - 1599High 1600 - 2000Very high > 2000. PATIENT WAS FASTINGP ERFORMED BY: S7 [employer] [address] [facility] [id number] BY: [facility]Hed[facility] Kycjrb2799 [facility] [id number] Information: 453148,[id number] METABOLIC PANEL, COMPREHENSI VE (22003)Ordered By: Client Advisor on 10-17-2009 Albumin mass conc 4.2 g/dL Normal 3.5-4.8 Compreh ensive Internal Medicine Work Phone: Comment on above: PATIENT WAS FASTINGP ERFORMED BY: [employer] Cll1964 [facility] [id number] BY: [facility] Aaurla1923 [facility] [id number] Albumin/Globulin mass ratio 1.5 {ratio} Normal 1.1-2.5 [facility] Work Phone: Comment on above: PATIENT WAS FASTINGP ERFORMED BY: [facility]Sc[facility]one [facility] Fbq5293 [facility] [id number] BY: CIERRA [facility] Klysfz8149 Khoury [facility] [id number] ALP [Catalytic activity/Vol] 136 U/L Normal 25-160 [facility]; [facility] Internal Medicine Work Phone: ALP enzyme act/vol 136 [iU]/L Normal 25-160 [facility] Internal Medicine Work Phone: Comment on above: PATIENT WAS FASTINGP ERFORMED BY: [employer] D[address] [place] [address] [id number] BY: CIERRA LabCo Ocqzob0505 [facility] [id number] ALT [Catalytic activity/Vol] 15 U/L Normal 0-55 [facility]; [facility] Internal Medicine Work Phone: ALT enzyme act/vol 15 [iU]/L Normal 0-55 [facility] Internal Medicine Work Phone: Comment on above: PATIENT WAS FASTINGP ERFORMED BY: [employer] Zan[address] [place] [address] [id number] BY: [facility] Ztxgse1841 [facility] [id number] AST [Catalytic activity/Vol] 19 U/L Normal 0-40 [facility]; [facility] Internal Medicine Work Phone: AST enzyme act/vol 19 [iU]/L Normal 0-40 [facility] Internal Medicine Work Phone: Comment on above: PATIENT WAS FASTINGP ERFORMED BY: [employer] Yhz[address] [place] [address] [id number] BY: CIERRA [facility] Vrivda9058 Khoury RoadDublin [place] [id number] Bilirubin mass conc 1.0 mg/dL Normal 0.1-1.2 Compr ehensive Internal Medicine Work Phone: Comment on above: PATIENT WAS FASTINGP ERFORMED BY: S[address] [employer] [address] [facility] [id number] BY: CIERRA [facility] Lsvdtl1975 Khoury RoadDublin [place] [id number] Calcium mass conc 9.6 mg/dL Normal 8.6-10.2 Compreh ensive Internal Medicine Work Phone: Comment on above: PATIENT WAS FASTINGP ERFORMED BY: S[address] [employer] [address] [facility] [id number] BY: CIERRA [facility] Inzhjt2297 Khoury RoadDublin [place] [id number] Chloride molar conc 102 mmol/L Normal 97-108 Compr ensive Internal Medicine Work Phone: Comment on above: PATIENT WAS FASTINGP ERFORMED BY: S[address] [employer] [address] [facility] [id number] BY: CIERRA [facility] Odqtdm0471 Khoury RoadDublin [place] [id number] CO2 molar conc 21 mmol/L Normal 20-32 Comprehens shawn Internal Medicine Work Phone: Comment on above: PATIENT WAS FASTINGP ERFORMED BY: S[address] [employer] [address] [facility] [id number] BY: CIERRA [facility] Tthijr1828 Khoury RoadDublin [place] [id number] Creatinine mass conc 1.01 mg/dL Normal 0.76-1.27 Comp [facility] Internal [facility] Work Phone: Comment on above: PATIENT WAS FASTINGP ERFORMED BY: S7 [employer] [address]re[address]645 [facility] [id number] BY: CIERRA [facility] Wckclo2579 Khoury RoadDublin [place] [id number] GFR/1.73 sq M predicted among blacks MDRD vol rate/area (S/P/Bld) mL/min/{1.73_m2} Normal Comprehensi Internal Medicine Work Phone: Comment on above: Note: Persistent red uction for 3 months or more in an eGFR<60 mL/min/1.73 m2 defines CKD. Patients with eGFR values>/=60 mL/min/1.73 m2 may also have CKD if evidence of persistentproteinuria is present. Additional information may be found [email or web address]. PATIENT WAS FASTINGP ERFORMED BY: S7 [employer] Ifc3977 [facility] [id number] BY: CIERRA LabWelliko Yibacm3258 [facility] [id number] GFR/1.73 sq M.predicted MDRD (S/P/Bld) [Vol rate/Area] mL/min/{1.73_m2} Normal [facility] Work Phone: Comment on above: PATIENT WAS FASTINGP ERFORMED BY: S7 [employer] Xno1650 [facility] [id number] BY: CIERRA LabTierra Ellis6370 [facility] [id number] GFR/1.73 sq M.predicted MDRD vol rate/area mL/min/{1.73_m2} Normal [facility] Work Phone: Comment on above: PATIENT WAS FASTINGP ERFORMED BY: S7 [employer] [address]gt[address] [facility] [id number] BY: CIERRA LabWelliko Bcwkbt2344 [facility] [id number] Globulin Calculated mass conc (S) 2.8 g/dL Normal 1.5-4.5 [facility] Work Phone: Globulin mass conc (S) 2.8 g/dL Normal 1.5-4.5 [facility] Work Phone: Comment on above: PATIENT WAS FASTINGP ERFORMED BY: S7 [employer] [address]cm[address] [facility] [id number] BY: CIERRA [facility] Wpocib4590 [address]houry RoadDublin [place] [id number] Glucose mass conc 104 mg/dL Abnormal 65-99 Compreh ensive Internal Medicine Work Phone: Comment on above: PATIENT WAS FASTINGP ERFORMED BY: S[address] [employer] [address] [facility] [id number] BY: CIERRA [facility] Ommdtk7477 Khoury RoadDublin [place] [id number] Potassium molar conc 5.1 mmol/L Normal 3.5-5.2 Comp rehensive Internal Medicine Work Phone: Comment on above: PATIENT WAS FASTINGP ERFORMED BY: S[address] [employer] [address]xn[address] [facility] [id number] BY: CIERRA [facility] Zyzign6274 [address] RoadDublin [place] [id number] Protein mass conc 7.0 g/dL Normal 6.0-8.5 Compreh ensive Internal Medicine Work Phone: Comment on above: PATIENT WAS FASTINGP ERFORMED BY: S[address] [employer] [address] [facility] [id number] BY: CIERRA LabCocheri ShieldsXfswil7654 [address] RoadDublin [place] [id number] Sodium molar conc 138 mmol/L Normal 135-145 Compreh ensive Internal Medicine Work Phone: Comment on above: PATIENT WAS FASTINGP ERFORMED BY: S[address] [employer] [address] [facility] [id number] BY: CIERRA [facility] Irwbvn5709 [address] RoadDublin [place] [id number] Urea nitrogen mass conc 13 mg/dL Normal 5-26 [facility] Work Phone: Comment on above: PATIENT WAS FASTINGP ERFORMED BY: S7 [employer] [id number] [facility] [id number] BY: CIERRA [facility] Xqtpdr8446 Khoury RoadDublin [place] [id number] Urea nitrogen/Creatinine mass ratio 13 mg/mg Normal 8-27 [facility] Work Phone: Comment on above: PATIENT WAS FASTINGP ERFORMED BY: S7 [employer] [address] [facility] [id number] BY: CIERRA Shieldslin6370 Khoury RoadDublin [place] [id number] MICROALBUMINOrdered By: Syst em Environmental Services Lead on 10-17-2009 Albumin DL <= 20 mg/L mass conc (U) 6.3 ug/mL Normal 0.0-17.0 [facility] Work Phone: Comment on above: PATIENT WAS FASTINGP ERFORMED BY: S7 [employer] [address] [facility] [id number] BY: CIERRA LabTierra ShieldsYpmmsm0938 Khoury RoadDublin [place] [id number] Albumin/Creatinine mass ratio (U) 3.7 {mg/g_creat} Normal 0.0-30.0 [facility] Work Phone: Comment on above: PATIENT WAS FASTINGP ERFORMED BY: S7 [employer] [address] [facility] [id number] BY: CIERRA Shieldslin6370 [address] RoadDublin [place] [id number] Creatinine mass conc (U) 168.8 mg/dL Normal 22.0-328.0 [facility] Work Phone: Comment on above: PATIENT WAS FASTINGP ERFORMED BY: S7 [employer] [address] [facility] [id number] BY: CIERRA LabTierra ShieldsKqycfb8763 Khoury RoadDublin [place] [id number] Microscopic ExaminationOrder ed By: Client Advisor on 10-17-2009 Bacteria LM.HPF #/area (Urine sed) Few Normal [facility] Work Phone: Comment on above: PATIENT WAS FASTINGP ERFORMED BY: S7 [employer] [address] [facility] [id number] BY: CIERRA LabTierra Hpdhzk7205 [address] RoadDublin [place] [id number] Casts LM Nom (Urine sed) Hyaline casts Normal [facility] Work Phone: Comment on above: PATIENT WAS FASTINGP ERFORMED BY: S7 [employer] [address] [facility] [id number] BY: CB [facility] Kltptb9891 [address] RoadDublin [place] [id number] Casts LM Ql (Urine sed) Present Abnormal [facility] Work Phone: Comment on above: PATIENT WAS FASTINGP ERFORMED BY: S[address] [employer] [address] [facility] [id number] BY: CIERRA [facility] Znbenm9885 K[address]y RoadDublin [place] [id number] Epithelial cells LM.HPF #/area (Urine sed) None seen Normal 0 - 10 [facility] Work Phone: Comment on above: PATIENT WAS FASTINGP ERFORMED BY: S7 [employer] [address] [facility] [id number] BY: CIERRA [facility] Awgdgz5476 Khour[address] RoadDuin [place] [id number] Mucus LM Ql (Urine sed) Present Normal [facility] Work Phone: Mucus Ql (Urine sed) Present Normal Comp rehensive Internal Medicine Work Phone: Comment on above: PATIENT WAS FASTINGP ERFORMED BY: S7 [employer] [address] [facility] [id number] BY: CB [facility] Lozgtd8872 [address] RoadDublin [place] [id number] RBC LM.HPF #/area (Urine sed) 0-3 Normal 0 - 3 [facility] Work Phone: Comment on above: PATIENT WAS FASTINGP ERFORMED BY: S7 [employer] [address] [facility] [id number] BY: CB [facility] Ufesiy2256 [address] RoadDublin [place] [id number] WBC LM.HPF #/area (Urine sed) 0-5 Normal 0 - 5 [facility] Work Phone: Comment on above: PATIENT WAS FASTINGP ERFORMED BY: LipoScimercyone [facility] Jew6353 [facility] [id number] BY: LabWelliko Xwhsdk4233 [facility] [id number] PSA (PROSTATE SPECIFIC ANTIG EN) (V76.44)Ordered By: Client Advisor on 10-17-2009 Prostate specific Ag mass conc 4.5 ng/mL Abnormal 0.0-4.0 [facility] Work Phone: Comment on above: Kutenda ECLIA methodol ogy..According to the [place] [employer], Serum PSA shoulddecrease and remain at undetectable levels after radicalprostatectomy. The AUA defines biochemical recurrence as an initialPSA value 0.2 ng/mL or greater followed by a subsequent confirmatoryPSA value 0.2 ng/mL or greater.Values obtained with different assay methods or kits cannot be usedinterchangeably. Results cannot be interpreted as absolute evidenceof the presence or absence of malignant disease. PATIENT WAS FASTINGP ERFORMED BY: S7 [employer]iSKY [employer] Kpc9071 [facility] [id number] BY: CIERRA [employer] Fkvasl3699 [facility] [id number] TSH (27070)Ordered By: Passlogixe Nixle Environmental Services Lead on 10-17-2009 Thyrotropin Qn 1.260 {uIU/mL} Normal 0.450-4.50 0 [facility] Work Phone: Comment on above: Please note refere nce interval change PATIENT WAS FASTINGP ERFORMED BY: S7 [employer] [address] [facility] [id number] BY: LabHed[facility] Qsapuk8477 [facility] [id number] URINALYSIS, W/ MICRO (36693) Ordered By: Client Advisor on 10-17-2009 Appearance Nom (U) Clear Normal Compre [facility] Work Phone: Comment on above: PATIENT WAS FASTINGP ERFORMED BY: LipoScimercyone [facility] Zsm0121 [facility] [id number] BY: CIERRA [facility] Mguknw9029 K[address] RoadDublin [place] [id number] Bilirubin Ql (U) Negative Normal Comprehe nsive Internal Medicine Work Phone: Comment on above: PATIENT WAS FASTINGP ERFORMED BY: [employer] Str4563 [facility] [id number] BY: CIERRA [facility] Wjjkdq5021 K[address]y RoadDublin [place] [id number] Bilirubin Ql (U) Negative Normal Comprehe nsive Internal Medicine; [facility] Work Phone: Color Nom (U) Yellow Normal Comprehensi ve Internal Medicine Work Phone: Comment on above: PATIENT WAS FASTINGP ERFORMED BY: [employer] Hwi7731 [facility] [id number] BY: CIERRA [facility] Eqygyv7097 Khoury RoadDublin [place] [id number] Glucose Ql (U) Negative Normal Comprehens shawn Internal Medicine Work Phone: Comment on above: PATIENT WAS FASTINGP ERFORMED BY: [employer] Rri4908 [facility] [id number] BY: CIERRA [facility] Mhxlab3554 Khoury RoadDuin [place] [id number] Glucose Ql (U) Negative Normal Comprehens shawn [facility]; [facility] Work Phone: Hemoglobin Ql (U) Negative Normal Compreh ensive [facility] Medicine Work Phone: Comment on above: PATIENT WAS FASTINGP ERFORMED BY: [employer] Xlt1895 [facility] [id number] BY: CIERRA [facility] Rcwdel8558 K[address] RoadDublin [place] [id number] Hemoglobin Ql (U) Negative Normal Compreh ensive Internal Medicine; [facility] Work Phone: Hemoglobin Test strip Ql (U) Negative Normal [facility] Work Phone: Ketones Ql (U) Negative Normal Comprehens shawn [facility] Work Phone: Comment on above: PATIENT WAS FASTINGP ERFORMED BY: S7 [employer] [address] [facility] [id number] BY: CIERRA [facility] Ggqglu1235 Khoury RoadDublin [place] [id number] Ketones Ql (U) Negative Normal Comprehens shawn [facility]; [facility] Work Phone: Leukocyte esterase Test strip Ql (U) Negative Normal [facility] Work Phone: Comment on above: PATIENT WAS FASTINGP ERFORMED BY: S7 [employer] [address] [facility] [id number] BY: CIERRA LabTierra ShieldsWindvg0263 K[address] RoadDublin [place] [id number] Leukocyte esterase Test strip Ql (U) Negative Normal [facility]; [facility] Work Phone: Microscopic observation LM Nom (Urine sed) See below: Normal [facility] Work Phone: Comment on above: PATIENT WAS FASTINGP ERFORMED BY: S7 [employer] [address] [facility] [id number] BY: CIERRA LabTierra ShieldsXfzrvg2968 Khoury RoadDublin [place] [id number] Microscopic observation LM Nom (Urine sed) MICRON Normal [facility] Work Phone: Comment on above: Microscopic follows if indicated. PATIENT WAS FASTINGP ERFORMED BY: S7 [employer] [address] [facility] [id number] BY: CIERRA [facility] Qsfwei3771 K[address] RoadDublin [place] [id number] Nitrite Ql (U) Negative Normal Comprehens shawn [facility] Work Phone: Comment on above: PATIENT WAS FASTINGP ERFORMED BY: S[address] [employer] [address] [facility] [id number] BY: CIERRA [facility] Todwel0784 Khoury RoadDublin [place] [id number] Nitrite Ql (U) Negative Normal Comprehens shawn [facility]; [facility] Work Phone: Nitrite Test strip Ql (U) Negative Normal [facility] Work Phone: pH (U) 7.0 [pH] Normal 5.0-7.5 [facility] Work Phone: Comment on above: PATIENT WAS FASTINGP ERFORMED BY: S7 LipoScimercyone [facility] Idy9890 [facility] [id number] BY: CIERRA Ellis6370 [facility] [id number] pH Test strip (U) 7.0 [pH] Normal 5.0-7.5 Compreh ensive Internal Medicine Work Phone: Protein Ql (U) Negative Normal Comprehens shawn [facility] Work Phone: Comment on above: PATIENT WAS FASTINGP ERFORMED BY: LipoScimercyone [facility] Qer[address] [place] [address] [id number] BY: CIERRA Ellis6370 [facility] [id number] Protein Ql (U) Negative Normal Comprehens shawn [facility]; [facility] Work Phone: Protein Test strip Ql (U) Negative Normal [facility] Work Phone: Specific gravity Relative Density (U) 1.019 1 Normal 1.005-1.03 0 [facility] Work Phone: Comment on above: PATIENT WAS FASTINGP ERFORMED BY: LipoScimercyone [facility] Ocm[address] [place] [address] [id number] BY: CIERRA LabWellikocheri ShieldsZorown5460 [facility] [id number] Urobilinogen (U) [Mass/Vol] 1.0 mg/dL Normal 0.0-1.9 [facility]; [facility] Work Phone: Urobilinogen Test strip mass conc (U) 1.0 mg/dL Normal 0.0-1.9 Comprehensiv e [facility] Medicine Work Phone: Comment on above: PATIENT WAS FASTINGP ERFORMED BY: LipoScimercyone [facility] Nvn[address] [place] [address] [id number] BY: CIERRA LezamaWellikocheri Pavljh6097 Nanofactory InstrumentsUNC Health Blue Ridge [id number] Blood Glucose , Office (1796 2)Ordered By: Richelle Campos on 07-18-2009 Glucose Glucometer molar conc (BldC) 176 1 Normal [facility] Work Phone: Comment on above: DONE KM HgA1C , Office (05921)Ordere d By: Richelle Campos on 07-18-2009 Hemoglobin A1c/Hemoglobin.total mass fraction (Bld) 5.9 % Normal 4.6 - 7.1 Comprehensiv e Internal Medicine Work Phone: Comment on above: DONE KM LIPID PANEL (26812)Ordered B y: Isabelle Patiño on 07-08-2009 Cholesterol in HDL mass conc 33 mg/dL Abnormal [facility] Work Phone: Comment on above: According to ATP-III Guidelines, HDL-C >59 mg/dL is considered anegative risk factor for CHD. do in 3 mo; PATIENT WAS FASTINGClinical Information: [id number] PERFORMED BY: CIERRA [employer]6370 Nanofactory InstrumentsUNC Health Blue Ridge [id number] Cholesterol in LDL mass conc 142 mg/dL Abnormal 0-99 [facility] Work Phone: Comment on above: do in 3 mo; PATIENT WAS FASTINGClinical Information: [id number] PERFORMED BY: CIERRA [employer]6370 Nanofactory InstrumentsIdeal Me [place] [id number] Cholesterol in LDL/Cholesterol in HDL mass ratio 4.3 {ratio_units} Abnormal 0.0-3.6 [facility] Work Phone: Comment on above: do in 3 mo; PATIENT WAS FASTINGClinical Information: [id number] PERFORMED BY: CIERRA eRALOS370 Nanofactory InstrumentsUNC Health Blue [facility] [id number] Cholesterol in VLDL mass conc 18 mg/dL Normal 5-40 [facility] Work Phone: Comment on above: do in 3 mo; PATIENT WAS FASTINGClinical Information: [id number] PERFORMED BY: CIERRA eRALOS370 [facility] [id number] Cholesterol mass conc 193 mg/dL Normal 100-199 Com prehensive Internal Medicine Work Phone: Comment on above: do in 3 mo; PATIENT WAS FASTINGClinical Information: [id number] PERFORMED BY: [facility] Kogtck6939 [facility] [id number] Triglyceride mass conc 92 mg/dL Normal 0-149 [facility] Work Phone: Comment on above: do in 3 mo; PATIENT WAS FASTINGClinical Information: [id number] PERFORMED BY: [employer]Co Ntyvqv5604 [facility] [id number] Blood Glucose , Office (2657 2)Ordered By: Richelle Campos on 04-17-2009 Glucose Glucometer molar conc (BldC) 152 1 Normal [facility] Work Phone: Comment on above: done latasha HgA1C , Office (86035)Ordere d By: Richelle Campos on 04-17-2009 Hemoglobin A1c/Hemoglobin.total mass fraction (Bld) 6.3 % Normal 4.6 - 7.1 Comprehensiv e [facility] Work Phone: Comment on above: done latasha LIPID PANEL (93839)Ordered B y: Isabelle Patiño on 01-31-2009 Cholesterol in HDL mass conc 37 mg/dL Abnormal [facility] Work Phone: Comment on above: According to ATP-III Guidelines, HDL-C >59 mg/dL is considered anegative risk factor for CHD. od in 6 mo; PATIENT WAS FASTINGClinical Information: ADD DRAW FEE [id number] ADD [id number] PERFORMED BY: [employer]Co Lxmhsk2124 [facility] [id number] Cholesterol in LDL mass conc 132 mg/dL Abnormal 0-99 [facility] Work Phone: Comment on above: od in 6 mo; PATIENT WAS FASTINGClinical Information: ADD DRAW FEE 607209 ADD [id number] PERFORMED BY: [employer] Pmuamb1314 [facility] [id number] Cholesterol in LDL/Cholesterol in HDL mass ratio SPRCS Normal [facility] Work Phone: Comment on above: If initial LDL-kristofer sterol result is >100 mg/dL, assess forrisk factors. od in 6 mo; PATIENT WAS FASTINGClinical Information: ADD DRAW FEE 935558 ADD [id number] PERFORMED BY: [employer]70 [facility] [id number] Cholesterol in LDL/Cholesterol in HDL mass ratio 3.6 {ratio_units} Normal 0.0-3.6 [facility] Work Phone: Comment on above: od in 6 mo; PATIENT WAS FASTINGClinical Information: ADD DRAW FEE 903558 ADD [id number] PERFORMED BY: [employer]70 [employer] 5211gameBlue Ridge Regional Hospital [id number] Cholesterol in VLDL mass conc 24 mg/dL Normal 5-40 [facility] Work Phone: Comment on above: od in 6 mo; PATIENT WAS FASTINGClinical Information: ADD DRAW FEE [id number] ADD [id number] PERFORMED BY: [employer]70 [facility] [id number] Cholesterol mass conc 193 mg/dL Normal 100-199 [facility] prehensive Internal Medicine Work Phone: Comment on above: od in 6 mo; PATIENT WAS FASTINGClinical Information: ADD DRAW FEE [id number] ADD [id number] PERFORMED BY: [employer]70 [facility] [id number] Triglyceride mass conc 122 mg/dL Normal 0-149 [facility] Work Phone: Comment on above: od in 6 mo; PATIENT WAS FASTINGClinical Information: ADD DRAW FEE 350209 ADD [id number] PERFORMED BY: Yooli Qcwkpt1869 [facility] [id number] CHEST, PA AND LATERAL (MT)Or dered By: Client Advisor on 10-01-2008 CHEST, PA AND LATERAL (MT) See Note Normal [facility] Work Phone: Comment on above: Exam Number: [id number] PA AND LATERAL CHEST INDICATIONCOPD. COMPARISONNone. FINDINGSThe heart is not enlarged. The hilar mediastinal contours are withinnormal limits. The thoracic aorta is tortuous. Pulmonary vasculatureis not congested. No pleural fluid or pneumothorax. The lungs are well expanded with no focal areas of consolidation seen. There are minimal end plate degenerative changes seen anteriorly inthe visualized dorsal spine. Visualized osseous structures areotherwise unremarkable. IMPRESSIONTortuous aorta. No acute process is seen within the chest. Reported By: LANDEN NAVARRO M.D. Blood Glucose , Office (0028 2)Ordered By: Richelle Campos on 09-11-2008 Glucose Glucometer molar conc (BldC) 203 1 Normal [facility] Work Phone: Comment on above: done km HgA1C , Office (26985)Ordere d By: Richelle Campos on 09-11-2008 Hemoglobin A1c/Hemoglobin.total mass fraction (Bld) 6.0 % Normal 4.6 - 7.1 Comprehensiv e Internal Medicine Work Phone: Comment on above: done LIPID PANEL (30706)Ordered B y: Isabelle Patiño on 09-03-2008 Cholesterol in HDL mass conc 35 mg/dL Abnormal [facility] Work Phone: Comment on above: According to ATP-III Guidelines, HDL-C >59 mg/dL is considered anegative risk factor for CHD. PATIENT WAS FASTINGC linical Information: ADD DRAW FEE 885190 ADD J [id number] PERFORMED BY: [employer] [place] [id number] Cholesterol in LDL mass conc 140 mg/dL Abnormal 0-99 [facility] Work Phone: Comment on above: PATIENT WAS FASTINGC linical Information: ADD DRAW FEE 723015 ADD J [id number] PERFORMED BY: MD Lingo6370 [employer] [place] [id number] Cholesterol in LDL/Cholesterol in HDL mass ratio 4.0 {ratio_units} Abnormal 0.0-3.6 [facility] Work Phone: Comment on above: PATIENT WAS FASTINGC linical Information: ADD DRAW FEE 350741 ADD J [id number] PERFORMED BY: 5211gameMeadowview Regional [facility] Center [id number] Cholesterol in LDL/Cholesterol in HDL mass ratio SPRCS Normal [facility] Work Phone: Comment on above: If initial LDL-kristofer sterol result is >100 mg/dL, assess forrisk factors. PATIENT WAS FASTINGC linical Information: ADD DRAW FEE 986907 ADD J [id number] PERFORMED BY: MD Lingo6370 BountiiBlue Ridge Regional Hospital [id number] Cholesterol in VLDL mass conc 24 mg/dL Normal 5-40 [facility] Work Phone: Comment on above: PATIENT WAS FASTINGC linical Information: ADD DRAW FEE 213616 ADD J [id number] PERFORMED BY: MD Lingo6370 Nanofactory InstrumentsUNC Health [facility] [id number] Cholesterol mass conc 199 mg/dL Normal 100-199 [facility] prehensive Internal Medicine Work Phone: Comment on above: PATIENT WAS FASTINGC linical Information: ADD DRAW FEE 010372 ADD J [id number] PERFORMED BY: MD Lingo6370 Khoury BixUNC Health Blue Ridge [id number] Triglyceride mass conc 118 mg/dL Normal 0-149 [facility] Work Phone: Comment on above: PATIENT WAS FASTINGC linical Information: ADD DRAW FEE 378605 ADD J [id number] PERFORMED BY: MD Lingo6370 [address] 5211gameBlue Ridge Regional Hospital [id number] Blood Glucose , Office (8696 2)Ordered By: Richelle Campos on 06-14-2008 Glucose Glucometer molar conc (BldC) 114 1 Normal [facility] Work Phone: Comment on above: done latasha HgA1C , Office (35250)Ordere d By: Richelle Campos on 06-14-2008 Hemoglobin A1c/Hemoglobin.total mass fraction (Bld) 6.0 % Normal 4.6 - 7.1 Comprehensiv e Internal Medicine Work Phone: Comment on above: done latasha PSA (PROSTATE SPECIFIC ANTIG EN) (V76.44)Ordered By: Isabelle Patiño on 06-14-2008 Prostate specific Ag mass conc 3.2 ng/mL Normal 0.0-4.0 [facility] Work Phone: Comment on above: Raji ECLIA methodol ogy. .According to the [place] [employer], PSA should beundetectable after radical prostatectomy. A PSA of less than0.5 ng/mL (or undetectable) is not likely to be associated withdisease recurrence within five years of treatment.Values obtained with different assay methods or kits cannot be usedinterchangeably. Results cannot be interpreted as absolute evidenceof the presence or absence of malignant disease. PATIENT NOT FASTINGC linical Information: ADD DRAW FEE 014934 ADD J [id number] PERFORMED BY: LabCoAstra Health CenterRujobm3788 [facility] [id number] CBCD,SMEAR DIFFOrdered By: S ystem Environmental Services Lead on 06-07-2008 Eosinophils/100 WBC (Bld) 4 % Normal 0-5 [facility] Internal Medicine Work Phone: Eosinophils/100 WBC Auto (Bld) 4 % Normal 0-5 [facility] Internal [facility] Work Phone: Erythrocyte distribution width Auto Ratio (RBC) 13.7 % Normal 11.6-14.6 [facility] Internal [facility] Work Phone: Erythrocyte distribution width Ratio (RBC) 13.7 % Normal 11.6-14.6 [facility] Internal [facility] Work Phone: Hematocrit Auto Volume Fraction (Bld) 42.5 % Normal 40-54 [facility] Internal Medicine Work Phone: Hematocrit Volume Fraction (Bld) 42.5 % Normal 40-54 [facility] Internal Medicine Work Phone: Hemoglobin mass conc (Bld) 14.7 g/dL Normal 14.0-18.0 [facility] Internal [facility] Work Phone: MCH Auto Entitic mass (RBC) 29.8 pg Normal 27.0-32.0 [facility] Internal [facility] Work Phone: MCH Entitic mass (RBC) 29.8 pg Normal 27.0-32.0 [facility] Internal [facility] Work Phone: MCHC Auto mass conc (RBC) 34.6 g/dL Normal 32-36 [facility] Internal Medicine Work Phone: MCHC mass conc (RBC) 34.6 g/dL Normal 32-36 Comp [facility] Internal Medicine Work Phone: MCV Auto Entitic volume (RBC) 86.3 fL Normal 80-94 [facility] Internal Medicine Work Phone: MCV Entitic volume (RBC) 86.3 fL Normal 80-94 [facility] Internal Medicine Work Phone: Platelets #/vol (Bld) 191 10*3/uL Normal 150-450 [facility] Internal Medicine Work Phone: Platelets Auto #/vol (Bld) 191 10*3/uL Normal 150-450 [facility] Internal Medicine Work Phone: RBC #/vol (Bld) 4.93 {M/mm3} Normal 4.6-6.2 Compreh [facility] Internal Medicine Work Phone: RBC Auto #/vol (Bld) 4.93 {M/mm3} Normal 4.6-6.2 [facility] Internal Medicine Work Phone: WBC #/vol (Bld) 8.4 10*3/uL Normal 4.4-11.0 [facility] Work Phone: WBC Auto #/vol (Bld) 8.4 10*3/uL Normal 4.4-11.0 [facility] Internal Medicine Work Phone: CBCD,SMEAR DIFF 1 % Normal 0-5 [facility] Internal Medicine Work Phone: CBCD,SMEAR DIFF 100 1 Normal [facility] Internal Medicine Work Phone: Comment on above: AMENDED REPORT 0 06/09/08 1432 CELLS COUNTED previously reported as: 124 CBCD,SMEAR DIFF 28 % Normal 19-41 [facility] Internal Medicine Work Phone: CBCD,SMEAR DIFF 10 % Normal 0-10 [facility] Internal Medicine Work Phone: CBCD,SMEAR DIFF SeeNote Normal [facility] Internal Medicine Work Phone: Comment on above: Result: ADEQUATE Result: NORM C+C CBCD,SMEAR DIFF 57 % Normal 47-70 [facility] Internal Medicine Work Phone: COMP METABOLICOrdered By: Markos stem Environmental Services Lead on 06-07-2008 Albumin mass conc 3.5 g/dL Normal 3.4-5.0 Compreh ensive Internal Medicine Work Phone: Albumin/Globulin mass ratio 1.0 {RATIO} Normal 0.9-2.4 [facility] Work Phone: ALP enzyme act/vol 135 U/L Normal 50-136 [facility] Work Phone: ALT enzyme act/vol 33 U/L Normal 30-65 [facility] Internal Medicine Work Phone: Anion gap 3 molar conc 7 mmol/L Normal 5-15 [facility] Work Phone: Anion gap molar conc 7 mmol/L Normal 5-15 Comp re[facility] Work Phone: AST enzyme act/vol 19 U/L Normal 15-37 [facility] Work Phone: Bilirubin mass conc 0.85 mg/dL Normal 0.00-1.00 Compr ens[facility] Work Phone: Calcium mass conc 8.6 mg/dL Normal 8.5-10.1 Compre[facility] Work Phone: Chloride molar conc 107 mmol/L Normal 98-107 Compr ens[facility] Work Phone: CO2 molar conc 26.9 mmol/L Normal 21.0-32.0 Comprehen [facility] Internal Medicine Work Phone: Creatinine mass conc 0.9 mg/dL Normal 0.8-1.3 [facility] Work Phone: Globulin Calculated mass conc (S) 3.4 g/dL Normal 2.7-4.2 [facility] Work Phone: Globulin mass conc (S) 3.4 g/dL Normal 2.7-4.2 [facility] Work Phone: Glucose mass conc 104 mg/dL Normal 70-110 Compre[facility] ens[facility] Work Phone: Potassium molar conc 4.2 mmol/L Normal 3.5-5.1 Comp rehens[facility] Work Phone: Protein mass conc 6.9 g/dL Normal 6.4-8.2 Com[facility] Work Phone: Sodium molar conc 141 mmol/L Normal 136-145 [facility] Work Phone: Urea nitrogen mass conc 14 mg/dL Normal 7-18 [facility] Work Phone: Urea nitrogen/Creatinine mass ratio 15.6 {RATIO} Normal 10-20 [facility] Work Phone: LIPIDOrdered By: System Karoline james on 06-07-2008 Cholesterol in HDL mass conc 34 mg/dL Abnormal [facility] Work Phone: Comment on above: Reference Range HDL <40 mg/dL Low HDL Cholesterol HDL >or= 60 mg/dL High HDL Cholesterol Cholesterol in LDL mass conc 129 mg/dL Normal 0-130 [facility] Work Phone: Cholesterol in VLDL mass conc 26 mg/dL Normal 5-40 [facility] Work Phone: Cholesterol mass conc 189 mg/dL Normal Com prehensive [facility] Work Phone: Comment on above: <200 mg/dL Desirable 200-240 mg/dL Borderline >240 mg/dL High Risk Triglyceride mass conc 128 mg/dL Normal [facility] Work Phone: Comment on above: Serum Triglycerides Reference Interval Normal <150 mg/dL Borderline high 150 - 199 mg/dL High 200 - 499 mg/dL Very High > or = 500 mg/dL MICROALBOrdered By: Gerson last on 06-07-2008 MICROALB 6.1 {mg/g_CRE} Normal Comprehens [facility] Work Phone: MICROALB 7.6 mg/L Normal [facility] Work Phone: MICROALB 123.8 mg/dL Normal [facility] Work Phone: TSHOrdered By: System Manage r on 06-07-2008 Thyrotropin Qn 1.07 {uIU/mL} Normal 0.34-4.82 Compreh ensive [facility] Work Phone: BRAIN/HEAD WITHOUT CONTRASTO rdered By: Client Advisor on 03-19-2008 BRAIN/HEAD WITHOUT CONTRAST See Note Normal [facility] Work Phone: Comment on above: Exam Number: [id number] CT SCAN OF BRAIN HISTORYSyncope. Consecutive axial scans were obtained at 2.5 mm intervals through theposterior fossa, and 5 mm intervals through the remainder of thebrain. No previous study is available for comparison. The sulci and ventricles are within normal limits for the patient'salena. There is no focal area of abnormal attenuation seen within thebrain parenchyma. No shift of midline, mass effect, extraaxialcollection, or acute intracranial bleed is identified. There is veryminimal thickening of the mucoperiosteal lining of the sphenoid,ethmoid, and left maxillary sinuses. These findings would becompatible with very minimal sinusitis or the residual of previousdisease. IMPRESSION1. The brain is within normal limits for the patient's age.2. There are minimal changes of mucosal thickening in paranasal sinuses. This may represent very minimal sinusitis, or the residual of previous disease. Reported By: YESSICA MUNOZ M.D. Blood Glucose , Office ([phone])Ordered By: Richelle Campos on 03-14-2008 Glucose Glucometer molar conc (BldC) 120 1 Normal [facility] Work Phone: Comment on above: done latasha HgA1C , Office ([id number])Ordere d By: Richelle Campos on 03-14-2008 Hemoglobin A1c/Hemoglobin.total mass fraction (Bld) 6.3 % Normal 4.6 - 7.1 Comprehensiv e [facility] Work Phone: Comment on above: done latasha Blood Glucose , Office ([phone])Ordered By: Richelle Campos on 12-06-2007 Glucose Glucometer molar conc (BldC) 125 1 Normal [facility] Work Phone: Comment on above: done latasha HgA1C , Office ([id number])Ordere d By: Richelle Campos on 12-06-2007 Hemoglobin A1c/Hemoglobin.total mass fraction (Bld) 5.8 % Normal 4.6 - 7.1 [facility] Work Phone: Comment on above: done km LIPIDOrdered By: Gerson james on 11-30-2007 Cholesterol in HDL mass conc 31 mg/dL Abnormal [facility] Work Phone: Comment on above: Reference Range HDL <40 mg/dL Low HDL Cholesterol HDL >or= 60 mg/dL High HDL Cholesterol Cholesterol in LDL mass conc 127 mg/dL Normal 0-130 [facility] Work Phone: Cholesterol in VLDL mass conc 14 mg/dL Normal 5-40 [facility] Work Phone: Cholesterol mass conc 172 mg/dL Normal Com prehensive [facility] Work Phone: Comment on above: <200 mg/dL Desirable 200-240 mg/dL Borderline >240 mg/dL High Risk Triglyceride mass conc 70 mg/dL Normal [facility] Work Phone: Comment on above: Serum Triglycerides Reference Interval Normal <150 mg/dL Borderline high 150 - 199 mg/dL High 200 - 499 mg/dL Very High > or = 500 mg/dL Blood Glucose , Office ([phone])Ordered By: Richelle Campos on 08-28-2007 Glucose Glucometer molar conc (BldC) 102 1 Normal [facility] Work Phone: Comment on above: done km HgA1C , Office ([id number])Ordere d By: Richelle Campos on 08-28-2007 Hemoglobin A1c/Hemoglobin.total mass fraction (Bld) 6.0 % Normal 4.6 - 7.1 [facility] Work Phone: Comment on above: done km LIPIDOrdered By: Gerson james on 07-18-2007 Cholesterol in HDL mass conc 35 mg/dL Normal [facility] Work Phone: Comment on above: Reference Range HDL <40 mg/dL Low HDL Cholesterol HDL >or= 60 mg/dL High HDL Cholesterol Cholesterol in LDL mass conc 115 mg/dL Normal 0-130 [facility] Work Phone: Cholesterol in VLDL mass conc 31 mg/dL Normal 5-40 [facility] Work Phone: Cholesterol mass conc 181 mg/dL Normal Com prehensive [facility] Work Phone: Comment on above: <200 mg/dL Desirable 200-240 mg/dL Borderline >240 mg/dL High Risk Triglyceride mass conc 154 mg/dL Normal [facility] Work Phone: Comment on above: Serum Triglycerides Reference Interval Normal <150 mg/dL Borderline high 150 - 199 mg/dL High 200 - 499 mg/dL Very High > or = 500 mg/dL Blood Glucose , Office ([phone])Ordered By: Dianna Sagastume on 04-24-2007 Glucose Glucometer molar conc (BldC) 144 1 Normal [facility] Work Phone: Blood Glucose , Office ([phone])Ordered By: Olga He on 04-12-2007 Glucose Glucometer molar conc (BldC) 102 1 Normal [facility] Work Phone: CBCD,SMEAR DIFFOrdered By: Izabella [employer] Lead on 04-12-2007 Eosinophils/100 WBC (Bld) 1 % Normal 0-5 [facility] Work Phone: Eosinophils/100 WBC Auto (Bld) 1 % Normal 0-5 [facility] Work Phone: Erythrocyte distribution width Auto Ratio (RBC) 13.4 % Normal 11.6-14.6 [facility] Work Phone: Erythrocyte distribution width Ratio (RBC) 13.4 % Normal 11.6-14.6 [facility] Work Phone: Hematocrit Auto Volume Fraction (Bld) 43.3 % Normal 40-54 Comprehens [facility] Work Phone: Hematocrit Volume Fraction (Bld) 43.3 % Normal 40-54 [facility] Work Phone: Hemoglobin mass conc (Bld) 14.8 g/dL Normal 14.0-18.0 [facility] Work Phone: MCH Auto Entitic mass (RBC) 30.1 pg Normal 27.0-32.0 [facility] Work Phone: MCH Entitic mass (RBC) 30.1 pg Normal 27.0-32.0 [facility] Work Phone: MCHC Auto mass conc (RBC) 34.1 g/dL Normal 32-36 [facility] Work Phone: MCHC mass conc (RBC) 34.1 g/dL Normal 32-36 Comp rehensive [facility] Work Phone: MCV Auto Entitic volume (RBC) 88.1 fL Normal 80-94 [facility] Work Phone: MCV Entitic volume (RBC) 88.1 fL Normal 80-94 [facility] Work Phone: Platelets #/vol (Bld) 209 10*3/uL Normal 150-450 [facility] Work Phone: Platelets Auto #/vol (Bld) 209 10*3/uL Normal 150-450 [facility] Work Phone: RBC #/vol (Bld) 4.91 {M/mm3} Normal 4.6-6.2 Compreh [facility] Internal [facility] Work Phone: RBC Auto #/vol (Bld) 4.91 {M/mm3} Normal 4.6-6.2 [facility] Work Phone: WBC #/vol (Bld) 9.4 10*3/uL Normal 4.4-11.0 Comprehe [facility] Internal Medicine Work Phone: WBC Auto #/vol (Bld) 9.4 10*3/uL Normal 4.4-11.0 Com [facility] Internal Medicine Work Phone: CBCD,SMEAR DIFF 100 1 Normal [facility] Work Phone: CBCD,SMEAR DIFF 22 % Normal 19-41 [facility] Work Phone: CBCD,SMEAR DIFF 7 % Normal 0-10 [facility] Work Phone: CBCD,SMEAR DIFF SeeNote Normal [facility] Work Phone: Comment on above: Result: ADEQUATE Result: NORM C&C Result: NEGATIVE CBCD,SMEAR DIFF 70 % Normal 47-70 [facility] Work Phone: COMP METABOLICOrdered By: Markos [employer] Lead on 04-12-2007 Albumin mass conc 3.8 g/dL Normal 3.4-5.0 [facility] Internal Medicine Work Phone: Albumin/Globulin mass ratio 1.1 {RATIO} Normal 0.9-2.4 [facility] Work Phone: ALP enzyme act/vol 131 U/L Normal 50-136 [facility] Work Phone: ALT enzyme act/vol 35 [iU]/L Normal 30-65 [facility] Work Phone: Anion gap 3 molar conc 9 mmol/L Normal 5-15 [facility] Work Phone: Anion gap molar conc 9 mmol/L Normal 5-15 [facility] Work Phone: AST enzyme act/vol 19 U/L Normal 15-37 [facility] Work Phone: Bilirubin mass conc 1.03 mg/dL Abnormal 0.00-1.00 [facility] Internal Medicine Work Phone: Calcium mass conc 8.4 mg/dL Abnormal 8.5-10.1 [facility] Internal Medicine Work Phone: Chloride molar conc 105 mmol/L Normal 98-107 [facility] Internal [facility] Work Phone: CO2 molar conc 26.9 mmol/L Normal 22.0-29.0 [facility] Internal Medicine Work Phone: Creatinine mass conc 1.0 mg/dL Normal 0.8-1.3 [facility] Internal Medicine Work Phone: Globulin Calculated mass conc (S) 3.4 g/dL Normal 2.3-3.5 [facility] Work Phone: Globulin mass conc (S) 3.4 g/dL Normal 2.3-3.5 [facility] Work Phone: Glucose mass conc 99 mg/dL Normal 70-110 [facility] Internal Medicine Work Phone: Potassium molar conc 4.0 mmol/L Normal 3.5-5.1 [facility] Internal Medicine Work Phone: Protein mass conc 7.2 g/dL Normal 6.4-8.2 Compreh ensive [facility] Work Phone: Sodium molar conc 141 mmol/L Normal 136-145 Compreh ensive [facility] Work Phone: Urea nitrogen mass conc 12 mg/dL Normal 7-18 [facility] Work Phone: Urea nitrogen/Creatinine mass ratio 12.0 {RATIO} Normal 10-20 [facility] Work Phone: HgA1C , Office ([phone])Ordere d By: Olga He on 04-12-2007 Hemoglobin A1c/Hemoglobin.total mass fraction (Bld) 6.0 % Normal 4.6 - 7.1 Comprehensiv e [facility] Work Phone: LIPIDOrdered By: Gerson james on 04-12-2007 Cholesterol in HDL mass conc 35 mg/dL Normal [facility] Work Phone: Comment on above: Reference Range HDL <40 mg/dL Low HDL Cholesterol HDL >or= 60 mg/dL High HDL Cholesterol Cholesterol in LDL mass conc 135 mg/dL Abnormal 0-130 [facility] Work Phone: Cholesterol in VLDL mass conc 25 mg/dL Normal 5-40 [facility] Work Phone: Cholesterol mass conc 195 mg/dL Normal Com prehensive [facility] Work Phone: Comment on above: <200 mg/dL Desirable 200-240 mg/dL Borderline >240 mg/dL High Risk Triglyceride mass conc 125 mg/dL Normal [facility] Work Phone: Comment on above: Serum Triglycerides Reference Interval Normal <150 mg/dL Borderline high 150 - 199 mg/dL High 200 - 499 mg/dL Very High > or = 500 mg/dL MICROALBOrdered By: Gerson last on 04-12-2007 MICROALB 8.3 mg/L Normal [facility] Work Phone: MICROALB 137.9 mg/dL Normal [facility] Work Phone: MICROALB 6.0 {mg/g_CRE} Normal Comprehens [facility] Work Phone: PSA,TOT SCREENOrdered By: [employer] stem [employer] Lead on 04-12-2007 Prostate specific Ag mass conc 2.96 ng/mL Normal 0.00-4.00 [facility] Work Phone: Comment on above: This test was perfor med using the TPSA method for the[employer] chemistry system.Values obtained with different assay methods cannot be usedinterchangably.When changing PSA assays in the course of monitoring apatient, additionaly sequential testing should be carriedout to confirm baseline values. ROUTINE UAOrdered By: Client Advisor on 04-12-2007 ROUTINE UA CLEAR Normal [facility] Work Phone: ROUTINE UA YELLOW Normal [facility] Work Phone: ROUTINE UA 6.0 1 Normal 5.0-8.0 [facility] Work Phone: ROUTINE UA 1.015 1 Normal 1.002-1.03 0 [facility] Work Phone: ROUTINE UA 0.2 EU/dl Normal 0.2 - 1.0 [facility] Work Phone: URINALYSIS W/O MICRO ([id number]) Ordered By: Olga He on 04-12-2007 Appearance Nom (U) clear Normal Compre hensive [facility] Work Phone: Color Nom (U) yellow Normal Comprehensi ve [facility] Work Phone: Glucose Test strip (U) [Mass/Vol] Negative Normal [facility]; [facility] Work Phone: Glucose Test strip mass conc (U) Negative Normal [facility] Work Phone: Ketones Ql (U) Negative Normal Comprehens [facility] Work Phone: Ketones Ql (U) Negative Normal Comprehens [facility]; [facility] Work Phone: Leukocyte esterase Test strip Ql (U) Negative Normal [facility] Work Phone: Leukocyte esterase Test strip Ql (U) Negative Normal [facility]; [facility] Work Phone: Nitrite Ql (U) Negative Normal Comprehens [facility] Work Phone: Nitrite Ql (U) Negative Normal Comprehens [facility]; [facility] Work Phone: Nitrite Test strip Ql (U) Negative Normal [facility] Work Phone: pH (U) 6.5 [pH] Normal [facility] Work Phone: pH Test strip (U) 6.5 [pH] Normal Compreh ensive [facility] Work Phone: Protein Ql (U) Negative Normal Comprehens [facility] Work Phone: Protein Ql (U) Negative Normal Comprehens [facility]; [facility] Work Phone: Protein Test strip Ql (U) Negative Normal [facility] Work Phone: Specific gravity Relative Density (U) 1.015 1 Normal Comprehensi ve [facility] Work Phone: Vital Signs Date Time Vital Sign Value Performing Clinician Facility 05-29-2025 13:14-0400 Body temperature 98.6 [degF] Dr. Isabelle Patiño DO Work Phone: [facility] 05-29-2025 13:14-0400 Diastolic blood pressure 82 mm[Hg] Dr. Isabelle Patiño DO Work Phone: [facility] 05-29-2025 13:14-0400 Heart rate 66 /min Dr. Isabelle Patiño DO Work Phone: [facility] 05-29-2025 13:14-0400 Respiratory rate 15 /min Dr. Isabelle Patiño DO Work Phone: [facility] 05-29-2025 13:14-0400 SaO2% (BldA) [Mass fraction] 96 % Dr. Isabelle Patiño DO Work Phone: [facility] 05-29-2025 13:14-0400 Systolic blood pressure 148 mm[Hg] Dr. Isabelle Patiño DO Work Phone: [facility] 07-20-2023 12:13-0400 Body height 165.1 cm [facility]; [facility] Work Phone: 07-20-2023 12:13-0400 Body mass index (BMI) [Ratio] 26.31 kg/m2 [facility]; [facility] Work Phone: 07-20-2023 12:13-0400 Body surface area Derived from formula 1.79 m2 [facility]; [facility] Work Phone: 07-20-2023 12:13-0400 Body temperature 96.4 [degF] [facility]; [facility] Work Phone: 07-20-2023 12:13-0400 Body weight 71.73 kg [facility]; [facility] Work Phone: 07-20-2023 12:13-0400 Diastolic blood pressure 68 mm[Hg] [facility]; [facility] Work Phone: 07-20-2023 12:13-0400 Heart rate 76 /min [facility]; [facility] Work Phone: 07-20-2023 12:13-0400 Respiratory rate 16 /min [facility]; [facility] Work Phone: 07-20-2023 12:13-0400 SaO2% (BldA) [Mass fraction] 97 % [facility]; [facility] Work Phone: 07-20-2023 12:13-0400 Systolic blood pressure 116 mm[Hg] [facility]; [facility] Work Phone: 06-03-2023 11:57-0400 Body height 165.1 cm SHANIA Jhonatan [facility]; [facility] Work Phone: 06-03-2023 11:57-0400 Body mass index (BMI) [Ratio] 25.96 kg/m2 SHANIA Israel [facility]; [facility] Work Phone: 06-03-2023 11:57-0400 Body surface area Derived from formula 1.78 m2 SHANIA Israel [facility]; [facility] Work Phone: 06-03-2023 11:57-0400 Body temperature 97.8 [degF] SHANIA Israel [facility]; [facility] Work Phone: 06-03-2023 11:57-0400 Body weight 70.76 kg SHANIA Israel [facility]; [facility] Work Phone: 06-03-2023 11:57-0400 Diastolic blood pressure 70 mm[Hg] SHANIA Israel [facility]; [facility] Work Phone: 06-03-2023 11:57-0400 Heart rate 76 /min SHANIA Israel [facility]; [facility] Work Phone: 06-03-2023 11:57-0400 Respiratory rate 18 /min SHANIA Israel [facility]; [facility] Work Phone: 06-03-2023 11:57-0400 SaO2% (BldA) [Mass fraction] 97 % SHANIA Israel [facility]; [facility] Work Phone: 06-03-2023 11:57-0400 Systolic blood pressure 102 mm[Hg] SHANIA Israel [facility]; [facility] Work Phone: 03-02-2023 12:30-0400 Body height 165.1 cm [facility]; [facility] Work Phone: 03-02-2023 12:30-0400 Body mass index (BMI) [Ratio] 39.33 kg/m2 [facility]; [facility] Work Phone: 03-02-2023 12:30-0400 Body surface area Derived from formula 2.12 m2 [facility]; [facility] Work Phone: 03-02-2023 12:30-0400 Body temperature 97.5 [degF] [facility]; [facility] Work Phone: 03-02-2023 12:30-0400 Body weight 107.22 kg [facility]; [facility] Work Phone: 03-02-2023 12:30-0400 Diastolic blood pressure 78 mm[Hg] [facility]; [facility] Work Phone: 03-02-2023 12:30-0400 Heart rate 79 /min [facility]; [facility] Work Phone: 03-02-2023 12:30-0400 Respiratory rate 18 /min [facility]; [facility] Work Phone: 03-02-2023 12:30-0400 SaO2% (BldA) [Mass fraction] 97 % [facility]; [facility] Work Phone: 03-02-2023 12:30-0400 Systolic blood pressure 138 mm[Hg] [facility]; [facility] Work Phone: 11-29-2022 11:53-0500 Body height 165.1 cm [facility]; [facility] Work Phone: 11-29-2022 11:53-0500 Body mass index (BMI) [Ratio] 26.48 kg/m2 [facility]; [facility] Work Phone: 11-29-2022 11:53-0500 Body surface area Derived from formula 1.8 m2 [facility]; [facility] Work Phone: 11-29-2022 11:53-0500 Body temperature 96.9 [degF] Kayela [place] [employer] [facility]; [facility] Work Phone: 11-29-2022 11:53-0500 Body weight 72.18 kg [facility]; [facility] Work Phone: 11-29-2022 11:53-0500 Diastolic blood pressure 80 mm[Hg] [facility]; [facility] Work Phone: 11-29-2022 11:53-0500 Heart rate 94 /min [facility]; [facility] Work Phone: 11-29-2022 11:53-0500 Respiratory rate 16 /min [facility]; [facility] Work Phone: 11-29-2022 11:53-0500 SaO2% (BldA) [Mass fraction] 95 % [facility]; [facility] Work Phone: 11-29-2022 11:53-0500 Systolic blood pressure 120 mm[Hg] [facility]; [facility] Work Phone: 07-28-2022 14:33-0400 Body height 165.1 cm [facility]; [facility] Work Phone: 07-28-2022 14:33-0400 Body mass index (BMI) [Ratio] 26.21 kg/m2 [facility]; [facility] Work Phone: 07-28-2022 14:33-0400 Body surface area Derived from formula 1.79 m2 [facility]; [facility] Work Phone: 07-28-2022 14:33-0400 Body temperature 96.9 [degF] [facility]; [facility] Work Phone: 07-28-2022 14:33-0400 Body weight 71.44 kg [facility]; [facility] Work Phone: 07-28-2022 14:33-0400 Diastolic blood pressure 68 mm[Hg] [facility]; [facility] Work Phone: 07-28-2022 14:33-0400 Heart rate 61 /min [facility]; [facility] Work Phone: 07-28-2022 14:33-0400 Respiratory rate 16 /min [facility]; [facility] Work Phone: 07-28-2022 14:33-0400 SaO2% (BldA) [Mass fraction] 97 % [facility]; [facility] Work Phone: 07-28-2022 14:33-0400 Systolic blood pressure 116 mm[Hg] [facility]; [facility] Work Phone: 07-16-2022 13:36-0400 Body height 165.1 cm Ugo Dudley LPN [facility]; [facility] Work Phone: 07-16-2022 13:36-0400 Body mass index (BMI) [Ratio] 25.59 kg/m2 Ugo Dudley LPN [facility]; [facility] Work Phone: 07-16-2022 13:36-0400 Body surface area Derived from formula 1.77 m2 Ugo Dudley LPN [facility]; [facility] Work Phone: 07-16-2022 13:36-0400 Body temperature 97.4 [degF] Ugo Dudley LPN [facility]; [facility] Work Phone: 07-16-2022 13:36-0400 Body weight 69.76 kg Ugo Dudley LPN [facility]; [facility] Work Phone: 07-16-2022 13:36-0400 Diastolic blood pressure 62 mm[Hg] Ugo Dudley LPN [facility]; [facility] Work Phone: 07-16-2022 13:36-0400 Heart rate 55 /min Ugo Dudley LPN [facility]; [facility] Work Phone: 07-16-2022 13:36-0400 Respiratory rate 16 /min Ugo Dudley [facility]; [facility] Work Phone: 07-16-2022 13:36-0400 SaO2% (BldA) [Mass fraction] 99 % Ugo Dudley [facility]; [facility] Work Phone: 07-16-2022 13:36-0400 Systolic blood pressure 120 mm[Hg] Ugo Dudley [facility]; [facility] Work Phone: 06-07-2022 12:32-0400 Body height 165.1 cm Isabelle Kaylyn DO Work Phone: [facility]; [facility] Work Phone: 06-07-2022 12:32-0400 Body mass index (BMI) [Ratio] 25.63 kg/m2 Isabelle Kaylyn DO Work Phone: [facility]; [facility] Work Phone: 06-07-2022 12:32-0400 Body surface area Derived from formula 1.77 m2 Isabelle Kaylyn DO Work Phone: [facility]; [facility] Work Phone: 06-07-2022 12:32-0400 Body temperature 97.3 [degF] Isabelle Kaylyn DO Work Phone: [facility]; [facility] Work Phone: 06-07-2022 12:32-0400 Body weight 69.85 kg Isabelle Kaylyn DO Work Phone: [facility]; [facility] Work Phone: 06-07-2022 12:32-0400 Diastolic blood pressure 64 mm[Hg] Isabelle Kaylyn DO Work Phone: [facility]; [facility] Work Phone: 06-07-2022 12:32-0400 Heart rate 62 /min Isabelle Kaylyn DO Work Phone: [facility]; [facility] Work Phone: 06-07-2022 12:32-0400 SaO2% (BldA) [Mass fraction] 95 % Isabelle Patiño DO Work Phone: [facility]; [facility] Work Phone: 06-07-2022 12:32-0400 Systolic blood pressure 102 mm[Hg] Isabelle Patiño DO Work Phone: [facility]; [facility] Work Phone: 01-21-2022 11:16-0400 Body height 165.1 cm Emily Onofre MA [facility]; [facility] Work Phone: 01-21-2022 11:16-0400 Body mass index (BMI) [Ratio] 26.96 kg/m2 Emily Onofre MA [facility]; [facility] Work Phone: 01-21-2022 11:16-0400 Body surface area Derived from formula 1.81 m2 Emily Onofre MA [facility]; [facility] Work Phone: 01-21-2022 11:16-0400 Body temperature 97.1 [degF] Emily Onofre MA [facility]; [facility] Work Phone: 01-21-2022 11:16-0400 Body weight 73.48 kg Emily Onofre MA [facility]; [facility] Work Phone: 01-21-2022 11:16-0400 Diastolic blood pressure 74 mm[Hg] Emily Onofre MA [facility]; [facility] Work Phone: 01-21-2022 11:16-0400 Heart rate 64 /min Emily Onofre MA [facility]; [facility] Work Phone: 01-21-2022 11:16-0400 Respiratory rate 16 /min Emily Onofre MA [facility]; [facility] Work Phone: 01-21-2022 11:16-0400 SaO2% (BldA) [Mass fraction] 99 % Emily Onofre MA [facility]; [facility] Work Phone: 01-21-2022 11:16-0400 Systolic blood pressure 116 mm[Hg] Emily Onofre MA [facility]; [facility] Work Phone: 10-16-2021 07:36-0500 Body height 165.1 cm Ugo Dudley LPN [facility]; [facility] Work Phone: 10-16-2021 07:36-0500 Body mass index (BMI) [Ratio] 26.29 kg/m2 Ugo Dudley LPN [facility]; [facility] Work Phone: 10-16-2021 07:36-0500 Body surface area Derived from formula 1.79 m2 Ugo Dudley LPN [facility]; [facility] Work Phone: 10-16-2021 07:36-0500 Body weight 71.67 kg Ugo Dudley LPN [facility]; [facility] Work Phone: 08-11-2020 13:33-0500 BMI (Body Mass Index) 26.29 kg/m2 Yen Nolan [facility] Work Phone: 08-11-2020 13:33-0500 Body Temperature 97.1 [degF] Yen Nolan [facility] Work Phone: Comment on above: Method: Infrared 08-11-2020 13:33-0500 Body weight 71.67 kg Yen Nolan [facility] Work Phone: 08-11-2020 13:33-0500 BP Diastolic 62 mm[Hg] Yen Nolan [facility] Work Phone: Comment on above: Patient Position: Sitting; Cuff Location : Left Arm; Cuff Size: Standard 08-11-2020 13:33-0500 BP Systolic 120 mm[Hg] Yen Nolan [facility] Work Phone: Comment on above: Patient Position: Sitting; Cuff Location : Left Arm; Cuff Size: Standard 08-11-2020 13:33-0500 BSA (Body Surface Area) 1.79 m2 Yen Nolan [facility] Work Phone: 08-11-2020 13:33-0500 Height 165.1 cm Yen Nolan [facility] Work Phone: 08-11-2020 13:33-0500 Pulse (Heart Rate) 57 /min Yen Nolan [facility] Work Phone: Comment on above: Pattern: Regular 08-11-2020 13:33-0500 Pulse Oximetry 97 % Isabelle Patiño [facility] Internal Medicine Work Phone: Comment on above: Room air 08-11-2020 13:33-0500 Respiratory Rate 16 /min Yen Nolan [facility] Internal Medicine Work Phone: Comment on above: Pattern: Unlabored 08-11-2020 13:33-0500 SaO2% (BldA) [Mass fraction] 97 % Yen Nolan [facility]; [facility] Work Phone: 06-26-2020 08:00-0400 BMI (Body Mass Index) 26.31 kg/m2 Isabelle Patiño [facility] Work Phone: 06-26-2020 08:00-0400 BMI (Body Mass Index) 26.29 kg/m2 Candie Ramirez LPN [facility] Work Phone: 06-26-2020 08:00-0400 Body Temperature 97.3 [degF] Candie Ramirez LPN [facility] Work Phone: Comment on above: Method: Temporal 06-26-2020 08:00-0400 Body weight 71.73 kg Isabelle Patiño [facility] Work Phone: 06-26-2020 08:00-0400 Body weight 71.67 kg Candie Ramirez LPN [facility] Work Phone: 06-26-2020 08:00-0400 BP Diastolic 60 mm[Hg] Candie Ramirez LPN [facility] Work Phone: Comment on above: Patient Position: Sitting; Cuff Location : Left Arm; Cuff Size: Standard 06-26-2020 08:00-0400 BP Systolic 120 mm[Hg] [facility] Work Phone: Comment on above: Patient Position: Sitting; Cuff Location : Left Arm; Cuff Size: Standard 06-26-2020 08:00-0400 BSA (Body Surface Area) 1.79 m2 Candie Ramirez [facility] Internal Medicine Work Phone: 06-26-2020 08:00-0400 Height 165.1 cm Candie Ramirez [facility] Internal Medicine Work Phone: 06-26-2020 08:00-0400 Pulse (Heart Rate) 56 /min Candie Ramirez [facility] Internal Medicine Work Phone: Comment on above: Pattern: Regular 06-26-2020 08:00-0400 Pulse Oximetry 98 % Isabelle Patiño [facility] Internal Medicine Work Phone: Comment on above: Room air 06-26-2020 08:00-0400 Respiratory Rate 16 /min Candie Ramirez [facility] Internal Medicine Work Phone: Comment on above: Pattern: Unlabored 06-26-2020 08:00-0400 SaO2% (BldA) [Mass fraction] 98 % Candie Ramirez [facility] Internal Medicine; [facility] Medicine Work Phone: 02-25-2020 14:07-0400 BMI (Body Mass Index) 26.31 kg/m2 Yen Nolan [facility] Internal Medicine Work Phone: 02-25-2020 14:07-0400 Body Temperature 96.9 [degF] Yen Nolan [facility] Internal Medicine Work Phone: Comment on above: Method: Temporal 02-25-2020 14:07-0400 Body weight 71.73 kg Yen Nolan [facility] Internal Medicine Work Phone: 02-25-2020 14:07-0400 BP Diastolic 70 mm[Hg] Yen Nolan [facility] Internal Medicine Work Phone: Comment on above: Patient Position: Sitting; Cuff Location : Left Arm; Cuff Size: Standard 02-25-2020 14:07-0400 BP Systolic 122 mm[Hg] Yen Nolan [facility] Work Phone: Comment on above: Patient Position: Sitting; Cuff Location : Left Arm; Cuff Size: Standard 02-25-2020 14:07-0400 BSA (Body Surface Area) 1.79 m2 Yen Nolan [facility] Work Phone: 02-25-2020 14:07-0400 Height 165.1 cm Yen Nolan [facility] Internal Medicine Work Phone: 02-25-2020 14:07-0400 Pulse (Heart Rate) 64 /min Yen Nolan [facility] Internal Medicine Work Phone: Comment on above: Pattern: Regular 02-25-2020 14:07-0400 Pulse Oximetry 94 % Isabelle Patiño [facility] Internal Medicine Work Phone: Comment on above: Room air 02-25-2020 14:07-0400 Respiratory Rate 18 /min Yen Nolan [facility] Internal Medicine Work Phone: Comment on above: Pattern: Unlabored 02-25-2020 14:07-0400 SaO2% (BldA) [Mass fraction] 94 % Yen Nolan [facility] Internal [facility]; [facility] Work Phone: 08-29-2019 12:20-0500 BMI (Body Mass Index) 27.48 kg/m2 Yen Nolan [facility] Internal Medicine Work Phone: 08-29-2019 12:20-0500 Body Temperature 98.1 [degF] Yen Nolan [facility] Internal Medicine Work Phone: Comment on above: Method: Oral 08-29-2019 12:20-0500 Body weight 74.9 kg Yen Nolan [facility] Internal Medicine Work Phone: 08-29-2019 12:20-0500 BP Diastolic 70 mm[Hg] Yen Nolan [facility] Internal Medicine Work Phone: Comment on above: Patient Position: Sitting; Cuff Location : Left Arm; Cuff Size: Standard 08-29-2019 12:20-0500 BP Systolic 122 mm[Hg] Yen Nolan [facility] Internal Medicine Work Phone: Comment on above: Patient Position: Sitting; Cuff Location : Left Arm; Cuff Size: Standard 08-29-2019 12:20-0500 BSA (Body Surface Area) 1.82 m2 Yen Nolan [facility] Internal Medicine Work Phone: 08-29-2019 12:20-0500 Height 165.1 cm Yen Nolan [facility] Internal Medicine Work Phone: 08-29-2019 12:20-0500 Pulse (Heart Rate) 65 /min Yen Nolan [facility] Internal Medicine Work Phone: Comment on above: Pattern: Regular 08-29-2019 12:20-0500 Pulse Oximetry 95 % Isabelle Patiño [facility] Internal Medicine Work Phone: Comment on above: Room air 08-29-2019 12:20-0500 Respiratory Rate 16 /min Yen Nolan [facility] Internal Medicine Work Phone: Comment on above: Pattern: Unlabored 08-29-2019 12:20-0500 SaO2% (BldA) [Mass fraction] 95 % Yen Nolan [facility] Internal [facility]; [facility] Work Phone: 08-08-2019 11:00-0500 BMI (Body Mass Index) 27.29 kg/m2 Yen Nolan [facility] Internal Medicine Work Phone: 08-08-2019 11:00-0500 Body Temperature 97.2 [degF] Yen Nolan [facility] Internal Medicine Work Phone: Comment on above: Method: Temporal 08-08-2019 11:00-0500 Body weight 74.39 kg Yen Nolan [facility] Internal Medicine Work Phone: 08-08-2019 11:00-0500 BP Diastolic 78 mm[Hg] Yen Nolan [facility] Internal Medicine Work Phone: Comment on above: Patient Position: Sitting; Cuff Location : Left Arm; Cuff Size: Standard 08-08-2019 11:00-0500 BP Systolic 140 mm[Hg] Yen Nolan [facility] Internal Medicine Work Phone: Comment on above: Patient Position: Sitting; Cuff Location : Left Arm; Cuff Size: Standard 08-08-2019 11:00-0500 BSA (Body Surface Area) 1.82 m2 Yen Nolan [facility] Internal Medicine Work Phone: 08-08-2019 11:00-0500 Height 165.1 cm Yen Nolan [facility] Internal Medicine Work Phone: 08-08-2019 11:00-0500 Pulse (Heart Rate) 59 /min Yen Nolan [facility] Internal Medicine Work Phone: Comment on above: Pattern: Regular 08-08-2019 11:00-0500 Pulse Oximetry 98 % Isabelle Patiño [facility] Internal Medicine Work Phone: Comment on above: Room air 08-08-2019 11:00-0500 Respiratory Rate 18 /min Yen Nolan [facility] Internal Medicine Work Phone: Comment on above: Pattern: Unlabored 08-08-2019 11:00-0500 SaO2% (BldA) [Mass fraction] 98 % Yen Nolan [facility]; [facility] Work Phone: 07-25-2018 11:04-0400 BMI (Body Mass Index) 27.29 kg/m2 Yen Nolan [facility] Internal Medicine Work Phone: 07-25-2018 11:04-0400 Body Temperature 96.9 [degF] Yen Nolan [facility] Internal Medicine Work Phone: Comment on above: Method: Temporal 07-25-2018 11:04-0400 Body weight 74.39 kg Yen Nolan [facility] Internal Medicine Work Phone: 07-25-2018 11:04-0400 BP Diastolic 70 mm[Hg] Yen Nolan [facility] Internal Medicine Work Phone: Comment on above: Patient Position: Sitting; Cuff Location : Left Arm; Cuff Size: Standard 07-25-2018 11:04-0400 BP Systolic 120 mm[Hg] Yen Nolan [facility] Internal Medicine Work Phone: Comment on above: Patient Position: Sitting; Cuff Location : Left Arm; Cuff Size: Standard 07-25-2018 11:04-0400 BSA (Body Surface Area) 1.82 m2 Yen Nolan [facility] Internal Medicine Work Phone: 07-25-2018 11:04-0400 Height 165.1 cm Yen Nolan [facility] Internal Medicine Work Phone: 07-25-2018 11:04-0400 Pulse (Heart Rate) 64 /min Yen Nolan [facility] Internal Medicine Work Phone: Comment on above: Pattern: Regular 07-25-2018 11:04-0400 Pulse Oximetry 94 % Isabelle Patiño [facility] Internal Medicine Work Phone: Comment on above: Room air 07-25-2018 11:04-0400 Respiratory Rate 16 /min Yen Nolan [facility] Internal Medicine Work Phone: Comment on above: Pattern: Unlabored 07-25-2018 11:04-0400 SaO2% (BldA) [Mass fraction] 94 % Yen Nolan [facility]; [facility] Work Phone: 07-25-2018 11:04-0400 Weight 74.39 kg Isabelle Patiño [facility] Internal Medicine Work Phone: 05-17-2018 10:59-0400 BMI (Body Mass Index) 24.96 kg/m2 SHANIA Israel LPN [facility] Internal Medicine Work Phone: 05-17-2018 10:59-0400 Body Temperature 97.3 [degF] SHANIA Israel LPN [facility] Internal Medicine Work Phone: Comment on above: Method: Temporal 05-17-2018 10:59-0400 Body weight 68.04 kg SHANIA Israel LPN [facility] Internal Medicine Work Phone: 05-17-2018 10:59-0400 BP Diastolic 80 mm[Hg] SHANIA Israel LPN [facility] Internal Medicine Work Phone: Comment on above: Patient Position: Sitting; Cuff Location : Left Arm; Cuff Size: Standard 05-17-2018 10:59-0400 BP Systolic 126 mm[Hg] SHANIA Israel LPN [facility] Work Phone: Comment on above: Patient Position: Sitting; Cuff Location : Left Arm; Cuff Size: Standard 05-17-2018 10:59-0400 BSA (Body Surface Area) 1.75 m2 SHANIA Israel LPN [facility] Work Phone: 05-17-2018 10:59-0400 Height 165.1 cm SHANIA Israel LPN [facility] Work Phone: 05-17-2018 10:59-0400 Pulse (Heart Rate) 64 /min SHANIA Israel LPN [facility] Work Phone: Comment on above: Pattern: Regular 05-17-2018 10:59-0400 Pulse Oximetry 92 % Isabelle Patiño [facility] Internal Medicine Work Phone: Comment on above: Room air 05-17-2018 10:59-0400 Respiratory Rate 20 /min SHANIA Israel LPN [facility] Work Phone: Comment on above: Pattern: Unlabored 05-17-2018 10:59-0400 SaO2% (BldA) [Mass fraction] 92 % SHANIA Israel LPN [facility]; [facility] Work Phone: 05-17-2018 10:59-0400 Weight 68.04 kg Isabelle Patiño [facility] Work Phone: 04-05-2018 11:20-0400 BMI (Body Mass Index) 25.02 kg/m2 Richelle Campos RN [facility] Work Phone: 04-05-2018 11:20-0400 Body weight 68.21 kg Richelle Campos RN [facility] Work Phone: 04-05-2018 11:20-0400 BP Diastolic 70 mm[Hg] Richelle Campos RN [facility] Work Phone: Comment on above: Patient Position: Sitting; Cuff Location : Left Arm; Cuff Size: Large 04-05-2018 11:20-0400 BP Systolic 128 mm[Hg] Richelle Campos RN [facility] Work Phone: Comment on above: Patient Position: Sitting; Cuff Location : Left Arm; Cuff Size: Large 04-05-2018 11:20-0400 BSA (Body Surface Area) 1.75 m2 Richelle Campos RN [facility] Work Phone: 04-05-2018 11:20-0400 Height 165.1 cm Richelle Campos RN [facility] Work Phone: 04-05-2018 11:20-0400 Pulse (Heart Rate) 81 /min Richelle Campos RN [facility] Work Phone: Comment on above: Pattern: Regular 04-05-2018 11:20-0400 Pulse Oximetry 95 % Isabelle Tellezon [facility] Work Phone: Comment on above: Room air 04-05-2018 11:20-0400 Respiratory Rate 18 /min Richelle Campos RN [facility] Work Phone: Comment on above: Pattern: Unlabored 04-05-2018 11:20-0400 SaO2% (BldA) [Mass fraction] 95 % Richelle Campos RN [facility]; [facility] Work Phone: 04-05-2018 11:20-0400 Weight 68.21 kg Isabelle Tellezon [facility] Work Phone: 02-14-2018 12:22-0400 BMI (Body Mass Index) 26.33 kg/m2 Richelle Campos RN [facility] Work Phone: 02-14-2018 12:22-0400 Body weight 71.78 kg Richelle Campos RN [facility] Work Phone: 02-14-2018 12:22-0400 BP Diastolic 70 mm[Hg] Richelle Campos RN [facility] Work Phone: Comment on above: Patient Position: Sitting; Cuff Location : Left Arm 02-14-2018 12:22-0400 BP Systolic 115 mm[Hg] Richelle Campos RN [facility] Work Phone: Comment on above: Patient Position: Sitting; Cuff Location : Left Arm 02-14-2018 12:22-0400 BSA (Body Surface Area) 1.79 m2 Richelle Campos RN [facility] Work Phone: 02-14-2018 12:22-0400 Height 165.1 cm Richelle Campos RN [facility] Work Phone: 02-14-2018 12:22-0400 Pulse (Heart Rate) 62 /min Richelle Campos RN [facility] Work Phone: Comment on above: Pattern: Regular 02-14-2018 12:22-0400 Pulse Oximetry 97 % Isabelle Patiño [facility] Work Phone: Comment on above: Room air 02-14-2018 12:22-0400 Respiratory Rate 18 /min Richelle Campos RN [facility] Work Phone: Comment on above: Pattern: Unlabored 02-14-2018 12:22-0400 SaO2% (BldA) [Mass fraction] 97 % Richelle Campos RN [facility]; [facility] Work Phone: 02-14-2018 12:22-0400 Weight 71.78 kg Isabelle Tellezon [facility] Work Phone: 11-08-2017 10:49-0500 BMI (Body Mass Index) 26.63 kg/m2 Richelle Campos RN [facility] Work Phone: 11-08-2017 10:49-0500 Body weight 72.58 kg Richelle Campos RN [facility] Work Phone: 11-08-2017 10:49-0500 BP Diastolic 76 mm[Hg] Richelle Campos RN [facility] Work Phone: Comment on above: Patient Position: Sitting; Cuff Location : Left Arm; Cuff Size: Large 11-08-2017 10:49-0500 BP Systolic 138 mm[Hg] Richelle Campos RN [facility] Work Phone: Comment on above: Patient Position: Sitting; Cuff Location : Left Arm; Cuff Size: Large 11-08-2017 10:49-0500 BSA (Body Surface Area) 1.8 m2 Richelle Campos RN [facility] Work Phone: 11-08-2017 10:49-0500 Height 165.1 cm Richelle Campos RN [facility] Work Phone: 11-08-2017 10:49-0500 Pulse (Heart Rate) 80 /min Richelle Campos RN [facility] Work Phone: Comment on above: Pattern: Regular 11-08-2017 10:49-0500 Pulse Oximetry 96 % Isabelle Patiño [facility] Work Phone: Comment on above: Room air 11-08-2017 10:49-0500 Respiratory Rate 18 /min Richelle Campos RN [facility] Work Phone: Comment on above: Pattern: Unlabored 11-08-2017 10:49-0500 SaO2% (BldA) [Mass fraction] 96 % Richelle Campos RN [facility]; [facility] Work Phone: 11-08-2017 10:49-0500 Weight 72.58 kg Isabelle Patiño [facility] Work Phone: 06-27-2017 15:14-0400 BMI (Body Mass Index) 26.46 kg/m2 Richelle Campos RN [facility] Work Phone: Comment on above: hearing [facility] [place] and had a glaucoma test 06-27-2017 15:14-0400 Body weight 72.12 kg Richelle Campos RN [facility] Work Phone: Comment on above: hearing [facility] [place] and had a glaucoma test 06-27-2017 15:14-0400 BP Diastolic 58 mm[Hg] Richelle Campos RN [facility] Work Phone: Comment on above: Patient Position: Sitting; Cuff Location : Left Arm; Cuff Size: Standard [facility] and had a glaucoma test 06-27-2017 15:14-0400 BP Systolic 98 mm[Hg] Richelle Campos RN [facility] Work Phone: Comment on above: Patient Position: Sitting; Cuff Location : Left Arm; Cuff Size: Standard [facility] 06-27-2017 15:14-0400 BSA (Body Surface Area) 1.79 m2 Richelle Campos RN [facility] Work Phone: Comment on above: hearing [facility] [place] and had a glaucoma test 06-27-2017 15:14-0400 Height 165.1 cm Richelle Campos RN [facility] Work Phone: Comment on above: hearing [facility] [place] and had a glaucoma test 06-27-2017 15:14-0400 Pulse (Heart Rate) 61 /min Richelle Campos RN [facility] Work Phone: Comment on above: Pattern: Regular hearing [facility] and had a glaucoma test 06-27-2017 15:14-0400 Pulse Oximetry 95 % Isabelle [facility] Work Phone: Comment on above: [facility] and had a glaucoma test 06-27-2017 15:14-0400 Respiratory Rate 18 /min Richelle Campos RN [facility] Work Phone: Comment on above: Pattern: Unlabored hearing [facility] e [facility] and had a glaucoma test 06-27-2017 15:14-0400 SaO2% (BldA) [Mass fraction] 95 % Richelle Campos RN [facility]; [facility] Work Phone: 06-27-2017 15:14-0400 Weight 72.12 kg Isabelle Patiño [facility] Work Phone: Comment on above: hearing [facility] [place] and had a glaucoma test 05-05-2017 11:50-0400 BMI (Body Mass Index) 26.21 kg/m2 Richelle Campos RN [facility] Work Phone: 05-05-2017 11:50-0400 Body weight 71.44 kg Richelle Campos RN [facility] Work Phone: 05-05-2017 11:50-0400 BP Diastolic 62 mm[Hg] Richelle Campos RN [facility] Work Phone: Comment on above: Patient Position: Sitting; Cuff Location : Left Arm; Cuff Size: Standard 05-05-2017 11:50-0400 BP Systolic 124 mm[Hg] Richelle Campos RN [facility] Work Phone: Comment on above: Patient Position: Sitting; Cuff Location : Left Arm; Cuff Size: Standard 05-05-2017 11:50-0400 BSA (Body Surface Area) 1.79 m2 Richelle Campos RN [facility] Work Phone: 05-05-2017 11:50-0400 Height 165.1 cm Richelle Campos RN [facility] Work Phone: 05-05-2017 11:50-0400 Pulse (Heart Rate) 64 /min Richelle Campos RN [facility] Work Phone: Comment on above: Pattern: Regular 05-05-2017 11:50-0400 Pulse Oximetry 95 % Isabelle Patiño [facility] Work Phone: Comment on above: Room air 05-05-2017 11:50-0400 Respiratory Rate 18 /min Richelle Campos RN [facility] Work Phone: Comment on above: Pattern: Unlabored 05-05-2017 11:50-0400 SaO2% (BldA) [Mass fraction] 95 % Richelle Campos RN [facility]; [facility] Work Phone: 05-05-2017 11:50-0400 Weight 71.44 kg Isabelle Patiño [facility] Work Phone: 12-23-2016 12:16-0400 BMI (Body Mass Index) 27.35 kg/m2 Richelle Campos RN [facility] Work Phone: 12-23-2016 12:16-0400 Body weight 74.56 kg Richelle Campos RN [facility] Work Phone: 12-23-2016 12:16-0400 BP Diastolic 62 mm[Hg] Richelle Campos RN [facility] Work Phone: Comment on above: Patient Position: Sitting; Cuff Location : Left Arm; Cuff Size: Large 12-23-2016 12:16-0400 BP Systolic 122 mm[Hg] Richelle Campos RN [facility] Work Phone: Comment on above: Patient Position: Sitting; Cuff Location : Left Arm; Cuff Size: Large 12-23-2016 12:16-0400 BSA (Body Surface Area) 1.82 m2 Richelle Campos RN [facility] Work Phone: 12-23-2016 12:16-0400 Height 165.1 cm Richelle Campos RN [facility] Work Phone: 12-23-2016 12:16-0400 Pulse (Heart Rate) 74 /min Richelle Campos RN [facility] Work Phone: Comment on above: Pattern: Regular 12-23-2016 12:16-0400 Pulse Oximetry 93 % Isabelle Patiño [facility] Work Phone: Comment on above: Room air 12-23-2016 12:16-0400 Respiratory Rate 18 /min Richelle Campos RN [facility] Work Phone: Comment on above: Pattern: Unlabored 12-23-2016 12:16-0400 SaO2% (BldA) [Mass fraction] 93 % Richelle Campos RN [facility]; [facility] Work Phone: 12-23-2016 12:16-0400 Weight 74.56 kg Isabelle Patiño [facility] Work Phone: 06-24-2016 12:20-0400 BMI (Body Mass Index) 26.67 kg/m2 Isabelle Patiño [facility] Work Phone: Comment on above: Hearing [facility] checks with Dr. Timi lópez yearly 06-24-2016 12:20-0400 Body Temperature 98 [degF] Isabelle Patiño [facility] Work Phone: Comment on above: Hearing [facility] checks with Dr. Timi lópez yearly 06-24-2016 12:20-0400 Body weight 72.69 kg Isabelle Patiño [facility] Work Phone: Comment on above: Hearing [facility] checks with Dr. Timi lópez yearly 06-24-2016 12:20-0400 BP Diastolic 74 mm[Hg] Isabelle Patiño [facility] Work Phone: Comment on above: Patient Position: Sitting; Cuff Location : Left Arm; Cuff Size: Standard Hearing [facility] ch ecks with Dr. Xiao yearly 06-24-2016 12:20-0400 BP Systolic 116 mm[Hg] Isabelle Patiño [facility] Work Phone: Comment on above: Patient Position: Sitting; Cuff Location : Left Arm; Cuff Size: Standard Hearing [facility] ch ecks with Dr. Xiao yearly 06-24-2016 12:20-0400 BSA (Body Surface Area) 1.8 m2 Isabelle Patiño [facility] Work Phone: Comment on above: Hearing [facility] checks with Dr. Timi lópez yearly 06-24-2016 12:20-0400 Height 165.1 cm Isabelle Patiño [facility] Work Phone: Comment on above: Hearing [facility] checks with Dr. Timi lópez yearly 06-24-2016 12:20-0400 Pulse (Heart Rate) 66 /min Isabelle Patiño [facility] Work Phone: Comment on above: Pattern: Regular Hearing [facility] ch ecks with Dr. Xiao yearly 06-24-2016 12:20-0400 Pulse Oximetry 97 % Isabelle Patiño [facility] Work Phone: Comment on above: Room air Hearing [facility] ecks with Dr. Xiao yearly 06-24-2016 12:20-0400 Respiratory Rate 18 /min Isabelle Patiño [facility] Work Phone: Comment on above: Pattern: Unlabored Hearing [facility] ch ecks with Dr. Xiao yearly 06-24-2016 12:20-0400 SaO2% (BldA) [Mass fraction] 97 % Isabelle Patiño DO Work Phone: [facility]; [facility] Work Phone: 06-24-2016 12:20-0400 Weight 72.69 kg Isabelle Patiño [facility] Work Phone: Comment on above: Hearing [facility] checks with Dr. Timi lópez yearly 06-17-2016 12:24-0400 BMI (Body Mass Index) 26.33 kg/m2 Richelle Campos RN [facility] Work Phone: 06-17-2016 12:24-0400 Body weight 71.78 kg Richelle Campos RN [facility] Work Phone: 06-17-2016 12:24-0400 BP Diastolic 70 mm[Hg] Richelle Campos RN [facility] Work Phone: Comment on above: Patient Position: Sitting; Cuff Location : Left Arm; Cuff Size: Large 06-17-2016 12:24-0400 BP Systolic 120 mm[Hg] Richelle Campos RN [facility] Work Phone: Comment on above: Patient Position: Sitting; Cuff Location : Left Arm; Cuff Size: Large 06-17-2016 12:24-0400 BSA (Body Surface Area) 1.79 m2 Richelle Campos RN [facility] Work Phone: 06-17-2016 12:24-0400 Height 165.1 cm Richelle Campos RN [facility] Work Phone: 06-17-2016 12:24-0400 Pulse (Heart Rate) 67 /min Richelle Campos RN [facility] Work Phone: Comment on above: Pattern: Regular 06-17-2016 12:24-0400 Pulse Oximetry 97 % Isabelle Patiño [facility] Work Phone: Comment on above: Room air 06-17-2016 12:24-0400 Respiratory Rate 18 /min Richelle Campos RN [facility] Work Phone: Comment on above: Pattern: Unlabored 06-17-2016 12:24-0400 SaO2% (BldA) [Mass fraction] 97 % Richelle Campos RN [facility]; [facility] Work Phone: 06-17-2016 12:24-0400 Weight 71.78 kg Isabelle Patiño [facility] Work Phone: 02-13-2016 13:28-0400 BMI (Body Mass Index) 27.33 kg/m2 Richelle Campos RN [facility] Work Phone: 02-13-2016 13:28-0400 Body weight 74.5 kg Richelle Campos RN [facility] Work Phone: 02-13-2016 13:28-0400 BP Diastolic 60 mm[Hg] Richelle Campos RN [facility] Work Phone: Comment on above: Patient Position: Sitting; Cuff Location : Left Arm; Cuff Size: Large 02-13-2016 13:28-0400 BP Systolic 98 mm[Hg] Richelle Campos RN [facility] Work Phone: Comment on above: Patient Position: Sitting; Cuff Location : Left Arm; Cuff Size: Large 02-13-2016 13:28-0400 BSA (Body Surface Area) 1.82 m2 Richelle Campos RN [facility] Work Phone: 02-13-2016 13:28-0400 Height 165.1 cm Richelle Campos RN [facility] Work Phone: 02-13-2016 13:28-0400 Pulse (Heart Rate) 63 /min Richelle Campos RN [facility] Work Phone: Comment on above: Pattern: Regular 02-13-2016 13:28-0400 Pulse Oximetry 94 % Isabelle [facility] Work Phone: Comment on above: Room air 02-13-2016 13:28-0400 Respiratory Rate 16 /min Richelle Campos RN [facility] Work Phone: Comment on above: Pattern: Unlabored 02-13-2016 13:28-0400 SaO2% (BldA) [Mass fraction] 94 % Richelle Campos RN [facility]; [facility] Work Phone: 02-13-2016 13:28-0400 Weight 74.5 kg Isabelle [facility] Work Phone: 11-12-2015 11:49-0500 BMI (Body Mass Index) 27.71 kg/m2 Richelle Campos RN [facility] Work Phone: 11-12-2015 11:49-0500 Body weight 75.52 kg Richelle Campos RN [facility] Work Phone: 11-12-2015 11:49-0500 BP Diastolic 78 mm[Hg] Richelle Campos RN [facility] Work Phone: Comment on above: Patient Position: Sitting; Cuff Location : Left Arm; Cuff Size: Large 11-12-2015 11:49-0500 BP Systolic 122 mm[Hg] Richelle Campos RN [facility] Work Phone: Comment on above: Patient Position: Sitting; Cuff Location : Left Arm; Cuff Size: Large 11-12-2015 11:49-0500 BSA (Body Surface Area) 1.83 m2 Richelle Campos RN [facility] Work Phone: 11-12-2015 11:49-0500 Height 165.1 cm Richelle Campos RN [facility] Work Phone: 11-12-2015 11:49-0500 Pulse (Heart Rate) 66 /min Richelle Campos RN [facility] Work Phone: Comment on above: Pattern: Regular 11-12-2015 11:49-0500 Pulse Oximetry 97 % Isabelle Patiño [facility] Work Phone: Comment on above: Room air 11-12-2015 11:49-0500 Respiratory Rate 18 /min Richelle Campos RN [facility] Work Phone: Comment on above: Pattern: Unlabored 11-12-2015 11:49-0500 SaO2% (BldA) [Mass fraction] 97 % Richelle Campos RN [facility]; [facility] Work Phone: 11-12-2015 11:49-0500 Weight 75.52 kg Isabelle Patiño [facility] Work Phone: 07-17-2015 11:17-0400 BP Diastolic 66 mm[Hg] Zeynep Weiss [facility] Work Phone: Comment on above: Patient Position: Sitting; Cuff Location : Left Arm; Cuff Size: Standard post-walk vitals 07-17-2015 11:17-0400 BP Systolic 118 mm[Hg] Zeynep Weiss [facility] Work Phone: Comment on above: Patient Position: Sitting; Cuff Location : Left Arm; Cuff Size: Standard post-walk vitals 07-17-2015 11:17-0400 Pulse (Heart Rate) 72 /min Zeynep Weiss [facility] Work Phone: Comment on above: Pattern: Regular post-walk vitals 07-17-2015 11:17-0400 Pulse Oximetry 95 % Isabelle Patiño [facility] Work Phone: Comment on above: Room air post-walk vitals 07-17-2015 11:17-0400 Respiratory Rate 18 /min Zeynep Farrjenni [facility] Work Phone: Comment on above: Pattern: Unlabored post-walk vitals 07-17-2015 11:17-0400 SaO2% (BldA) [Mass fraction] 95 % Zeynep Abhishek [facility]; [facility] Work Phone: 07-17-2015 11:11-0400 BMI (Body Mass Index) 26.79 kg/m2 Zeynep Abhishek [facility] Work Phone: 07-17-2015 11:11-0400 Body Temperature 98.6 [degF] Zeynep Farrjenni [facility] Work Phone: Comment on above: Method: Temporal 07-17-2015 [id number]:110400 Body weight 73.03 kg Zeynep Abhishek [facility] Work Phone: 07-17-2015 11:11-0400 BP Diastolic 68 mm[Hg] Zeynep Abhishek [facility] Work Phone: Comment on above: Patient Position: Sitting; Cuff Location : Left Arm; Cuff Size: Standard 07-17-2015 11:11-0400 BP Systolic 106 mm[Hg] Zeynep Farrjenni [facility] Work Phone: Comment on above: Patient Position: Sitting; Cuff Location : Left Arm; Cuff Size: Standard 07-17-2015 11:11-0400 BSA (Body Surface Area) 1.8 m2 Zeynep Abhishek [facility] Work Phone: 07-17-2015 11:11-0400 Height 165.1 cm Zeynep Abhishek [facility] Work Phone: 07-17-2015 11:11-0400 Pulse (Heart Rate) 68 /min Zeynep Abhishek [facility] Work Phone: Comment on above: Pattern: Regular 07-17-2015 11:11-0400 Pulse Oximetry 95 % Isabelle Patiño [facility] Work Phone: Comment on above: Room air 07-17-2015 11:11-0400 Respiratory Rate 16 /min Zeynep Abhishek [facility] Work Phone: Comment on above: Pattern: Unlabored 07-17-2015 11:11-0400 SaO2% (BldA) [Mass fraction] 95 % Zeynep Weiss [facility]; [facility] Work Phone: 07-17-2015 11:11-0400 Weight 73.03 kg Isabelle Patiño [facility] Work Phone: 07-08-2015 11:16-0400 BMI (Body Mass Index) 27.46 kg/m2 Valentina Lamb RN [facility] Work Phone: 07-08-2015 11:16-0400 Body Temperature 97.2 [degF] Valentina Lamb RN [facility] Work Phone: Comment on above: Method: Temporal 07-08-2015 11:16-0400 Body weight 74.84 kg Valentina Lamb RN [facility] Work Phone: 07-08-2015 11:16-0400 BP Diastolic 76 mm[Hg] Valentina Lamb RN [facility] Work Phone: Comment on above: Patient Position: Sitting; Cuff Location : Left Arm; Cuff Size: Standard 07-08-2015 11:16-0400 BP Systolic 142 mm[Hg] Valentina Lamb RN [facility] Work Phone: Comment on above: Patient Position: Sitting; Cuff Location : Left Arm; Cuff Size: Standard 07-08-2015 11:16-0400 BSA (Body Surface Area) 1.82 m2 Valentina Lamb RN [facility] Work Phone: 07-08-2015 11:16-0400 Height 165.1 cm Valentina Lamb RN [facility] Work Phone: 07-08-2015 11:16-0400 Pulse (Heart Rate) 65 /min Valentina Lamb RN [facility] Work Phone: Comment on above: Pattern: Regular 07-08-2015 11:16-0400 Pulse Oximetry 99 % Isabelle Patiño [facility] Work Phone: Comment on above: Room air 07-08-2015 11:16-0400 Respiratory Rate 16 /min Valentina Lamb RN [facility] Work Phone: Comment on above: Pattern: Unlabored 07-08-2015 11:16-0400 SaO2% (BldA) [Mass fraction] 99 % Valentina Lamb RN [facility]; [facility] Work Phone: 07-08-2015 11:16-0400 Weight 74.84 kg Isabelle Patiño [facility] Work Phone: 06-19-2015 11:01-0400 BMI (Body Mass Index) 26.71 kg/m2 Valentina Lamb RN [facility] Work Phone: Comment on above: not [facility] 06-19-2015 11:01-0400 Body Temperature 98.2 [degF] Valentina Lamb RN [facility] Work Phone: Comment on above: Method: Temporal not [facility] 06-19-2015 11:01-0400 Body weight 72.8 kg Valentina Lamb RN [facility] Work Phone: Comment on above: not [facility] 06-19-2015 11:01-0400 BP Diastolic 76 mm[Hg] Valentina Lamb RN [facility] Work Phone: Comment on above: Patient Position: Sitting; Cuff Location : Left Arm; Cuff Size: Standard [facility] 06-19-2015 11:01-0400 BP Systolic 124 mm[Hg] Valentina Lamb RN [facility] Work Phone: Comment on above: Patient Position: Sitting; Cuff Location : Left Arm; Cuff Size: Standard [facility] 06-19-2015 11:01-0400 BSA (Body Surface Area) 1.8 m2 Valentina Lamb RN [facility] Work Phone: Comment on above: not [facility] 06-19-2015 11:01-0400 Height 165.1 cm Valentina Lamb RN [facility] Work Phone: Comment on above: not [facility] 06-19-2015 11:01-0400 Pulse (Heart Rate) 68 /min Valentina Lamb RN [facility] Work Phone: Comment on above: Pattern: Regular not [facility] 06-19-2015 11:01-0400 Pulse Oximetry 98 % Isabelle Patiño [facility] Work Phone: Comment on above: Room air not [facility] 06-19-2015 11:01-0400 Respiratory Rate 16 /min Valentina Lamb RN [facility] Work Phone: Comment on above: Pattern: Unlabored not [facility] 06-19-2015 11:01-0400 SaO2% (BldA) [Mass fraction] 98 % Valentina Labm RN [facility]; [facility] Work Phone: 06-19-2015 11:01-0400 Weight 72.8 kg Isabelle [facility] Work Phone: Comment on above: not [facility] 04-10-2015 11:06-0400 BMI (Body Mass Index) 26.71 kg/m2 Richelle Campos RN [facility] Work Phone: 04-10-2015 11:06-0400 Body weight 72.8 kg Richelle Campos RN [facility] Work Phone: 04-10-2015 11:06-0400 BP Diastolic 64 mm[Hg] Richelle Campos RN [facility] Work Phone: Comment on above: Patient Position: Standing; Cuff Locatio n: Left Arm; Cuff Size: Large 04-10-2015 11:06-0400 BP Systolic 110 mm[Hg] Richelle Campos RN [facility] Work Phone: Comment on above: Patient Position: Standing; Cuff Locatio n: Left Arm; Cuff Size: Large 04-10-2015 11:06-0400 BSA (Body Surface Area) 1.8 m2 Richelle Campos RN [facility] Work Phone: 04-10-2015 11:06-0400 Height 165.1 cm Richelle Campos RN [facility] Work Phone: 04-10-2015 11:06-0400 Pulse (Heart Rate) 62 /min Richelle Campos RN [facility] Work Phone: Comment on above: Pattern: Regular 04-10-2015 11:06-0400 Pulse Oximetry 96 % Isabelle Patiño [facility] Work Phone: Comment on above: Room air 04-10-2015 11:06-0400 Respiratory Rate 18 /min Richelle Campos RN [facility] Work Phone: Comment on above: Pattern: Unlabored 04-10-2015 11:06-0400 SaO2% (BldA) [Mass fraction] 96 % Richelle Campos RN [facility]; [facility] Work Phone: 04-10-2015 11:06-0400 Weight 72.8 kg Isabelle Patiño [facility] Work Phone: 01-24-2015 11:06-0400 BMI (Body Mass Index) 28 kg/m2 Richelle Campos RN [facility] Work Phone: 01-24-2015 11:06-0400 Body weight 76.32 kg Richelle Campos RN [facility] Work Phone: 01-24-2015 11:06-0400 BP Diastolic 62 mm[Hg] Richelle Campos RN [facility] Work Phone: Comment on above: Patient Position: Sitting; Cuff Location : Left Arm; Cuff Size: Large 01-24-2015 11:06-0400 BP Systolic 110 mm[Hg] Richelle Campos RN [facility] Work Phone: Comment on above: Patient Position: Sitting; Cuff Location : Left Arm; Cuff Size: Large 01-24-2015 11:06-0400 BSA (Body Surface Area) 1.84 m2 Richelle Campos RN [facility] Work Phone: 01-24-2015 11:06-0400 Height 165.1 cm Richelle Campos RN [facility] Work Phone: 01-24-2015 11:06-0400 Pulse (Heart Rate) 62 /min Richelle Campos RN [facility] Work Phone: Comment on above: Pattern: Regular 01-24-2015 11:06-0400 Pulse Oximetry 96 % Isabelle Patiño [facility] Work Phone: Comment on above: Room air 01-24-2015 11:06-0400 Respiratory Rate 18 /min Richelle Campos RN [facility] Work Phone: Comment on above: Pattern: Unlabored 01-24-2015 11:06-0400 SaO2% (BldA) [Mass fraction] 96 % Richelle Campos RN [facility]; [facility] Work Phone: 01-24-2015 11:06-0400 Weight 76.32 kg Isabelle Patiño [facility] Work Phone: 01-09-2015 10:54-0400 BMI (Body Mass Index) 28 kg/m2 Richelle Campos RN [facility] Work Phone: 01-09-2015 10:54-0400 Body weight 76.32 kg Richelle Campos RN [facility] Work Phone: 01-09-2015 10:54-0400 BP Diastolic 78 mm[Hg] Richelle Campos RN [facility] Work Phone: 01-09-2015 10:54-0400 BP Systolic 122 mm[Hg] Richelle Campos RN [facility] Work Phone: 01-09-2015 10:54-0400 BSA (Body Surface Area) 1.84 m2 Richelle Campos RN [facility] Work Phone: 01-09-2015 10:54-0400 Height 165.1 cm Richelle Campos RN [facility] Work Phone: 01-09-2015 10:54-0400 Pulse (Heart Rate) 71 /min Richelle Campos RN [facility] Work Phone: Comment on above: Pattern: Regular 01-09-2015 10:54-0400 Pulse Oximetry 98 % Isabelle Patiño [facility] Work Phone: Comment on above: Room air 01-09-2015 10:54-0400 Respiratory Rate 20 /min Richelle Campos RN [facility] Work Phone: Comment on above: Pattern: Unlabored 01-09-2015 10:54-0400 SaO2% (BldA) [Mass fraction] 98 % Richelle Campos RN [facility]; [facility] Work Phone: 01-09-2015 10:54-0400 Weight 76.32 kg Isabelle Patiño [facility] Work Phone: 10-10-2014 10:51-0500 BMI (Body Mass Index) 27.64 kg/m2 Richelle Campos RN [facility] Work Phone: 10-10-2014 10:51-0500 Body weight 75.35 kg Richelle Campos RN [facility] Work Phone: 10-10-2014 10:51-0500 BP Diastolic 78 mm[Hg] Richelle Campos RN [facility] Work Phone: Comment on above: Patient Position: Sitting; Cuff Location : Left Arm; Cuff Size: Large 10-10-2014 10:51-0500 BP Systolic 122 mm[Hg] Richelle Campos RN [facility] Work Phone: Comment on above: Patient Position: Sitting; Cuff Location : Left Arm; Cuff Size: Large 10-10-2014 10:51-0500 BSA (Body Surface Area) 1.83 m2 Richelle Campos RN [facility] Work Phone: 10-10-2014 10:51-0500 Height 165.1 cm Richelle Campos RN [facility] Work Phone: 10-10-2014 10:51-0500 Pulse (Heart Rate) 79 /min Richelle Campos RN [facility] Work Phone: Comment on above: Pattern: Regular 10-10-2014 10:51-0500 Pulse Oximetry 97 % Isabelle Patiño [facility] Work Phone: Comment on above: Room air 10-10-2014 10:51-0500 Respiratory Rate 18 /min Richelle Campos RN [facility] Work Phone: Comment on above: Pattern: Unlabored 10-10-2014 10:51-0500 SaO2% (BldA) [Mass fraction] 97 % Richelle Campos RN [facility]; [facility] Work Phone: 10-10-2014 10:51-0500 Weight 75.35 kg Isabelle Patiño [facility] Internal Medicine Work Phone: 08-06-2014 14:05-0500 BMI (Body Mass Index) 27.29 kg/m2 [facility] Work Phone: 08-06-2014 14:05-0500 Body Temperature 98 [degF] Viviana Martins [facility] Internal Medicine Work Phone: Comment on above: Method: Oral 08-06-2014 14:05-0500 Body weight 74.39 kg Viviana Martins [facility] Internal Medicine Work Phone: 08-06-2014 14:05-0500 BP Diastolic 68 mm[Hg] Viviana Martins [facility] Internal Medicine Work Phone: Comment on above: Patient Position: Sitting; Cuff Location : Left Arm; Cuff Size: Standard 08-06-2014 14:05-0500 BP Systolic 102 mm[Hg] Viviana Martins [facility] Internal Medicine Work Phone: Comment on above: Patient Position: Sitting; Cuff Location : Left Arm; Cuff Size: Standard 08-06-2014 14:05-0500 BSA (Body Surface Area) 1.82 m2 Viviana Martins [facility] Internal Medicine Work Phone: 08-06-2014 14:05-0500 Height 165.1 cm Viviana Martins [facility] Internal Medicine Work Phone: 08-06-2014 14:05-0500 Pulse (Heart Rate) 61 /min Viviana Martins [facility] Internal Medicine Work Phone: Comment on above: Pattern: Regular 08-06-2014 14:05-0500 Pulse Oximetry 97 % Isabelle Patiño [facility] Internal Medicine Work Phone: Comment on above: Room air 08-06-2014 14:05-0500 Respiratory Rate 18 /min Viviana Martins [facility] Internal Medicine Work Phone: Comment on above: Pattern: Unlabored 08-06-2014 14:05-0500 SaO2% (BldA) [Mass fraction] 97 % Viviana Martins [facility] Work Phone: 08-06-2014 14:05-0500 Weight 74.39 kg Isabelle Patiño [facility] Work Phone: 07-16-2014 11:11-0400 BMI (Body Mass Index) 27.62 kg/m2 Richelle Campos RN [facility] Work Phone: 07-16-2014 11:110400 Body weight 75.3 kg Richelle Campos RN [facility] Work Phone: 07-16-2014 11:11-0400 BP Diastolic 82 mm[Hg] Richelle Campos RN [facility] Work Phone: Comment on above: Patient Position: Sitting; Cuff Location : Left Arm; Cuff Size: Standard 07-16-2014 11:110400 BP Systolic 120 mm[Hg] Richelle Campos RN [facility] Work Phone: Comment on above: Patient Position: Sitting; Cuff Location : Left Arm; Cuff Size: Standard 07-16-2014 11:110400 BSA (Body Surface Area) 1.83 m2 Richelle Campos RN [facility] Work Phone: 07-16-2014 11:110400 Height 165.1 cm Richelle Campos RN [facility] Work Phone: 07-16-2014 11:11-0400 Pulse (Heart Rate) 62 /min Richelle Campos RN [facility] Work Phone: Comment on above: Pattern: Regular 07-16-2014 11:11-0400 Pulse Oximetry 98 % Isabelle Patiño [facility] Work Phone: Comment on above: Room air 07-16-2014 11:11-0400 Respiratory Rate 20 /min Richelle Campos RN [facility] Work Phone: Comment on above: Pattern: Unlabored 07-16-2014 11:11-0400 SaO2% (BldA) [Mass fraction] 98 % Richelle Campos RN [facility]; [facility] Work Phone: 07-16-2014 11:11-0400 Weight 75.3 kg Isabelle Patiño [facility] Work Phone: 07-05-2014 11:21-0400 BMI (Body Mass Index) 27.29 kg/m2 Valentina Lamb RN [facility] Internal Medicine Work Phone: 07-05-2014 11:21-0400 Body Temperature 97.6 [degF] Valentina Lamb RN [facility] Work Phone: Comment on above: Method: Temporal 07-05-2014 11:-0400 Body weight 74.39 kg Valentina Lamb RN [facility] Work Phone: 07-05-2014 11:21-0400 BP Diastolic 66 mm[Hg] Valentina Lamb RN [facility] Work Phone: Comment on above: Patient Position: Sitting; Cuff Location : Left Arm; Cuff Size: Standard 07-05-2014 11:210400 BP Systolic 122 mm[Hg] Valentina Lamb RN [facility] Work Phone: Comment on above: Patient Position: Sitting; Cuff Location : Left Arm; Cuff Size: Standard 07-05-2014 11:0400 BSA (Body Surface Area) 1.82 m2 Valentina Lamb RN [facility] Work Phone: 07-05-2014 11:210400 Height 165.1 cm Valentina Lamb RN [facility] Work Phone: 07-05-2014 11:21-0400 Pulse (Heart Rate) 72 /min Valentina Lamb RN [facility] Work Phone: Comment on above: Pattern: Regular 07-05-2014 11:21-0400 Pulse Oximetry 97 % Isabelle Kaylyn [facility] Work Phone: Comment on above: Room air 07-05-2014 11:21-0400 Respiratory Rate 16 /min Valentina Lamb RN [facility] Work Phone: Comment on above: Pattern: Unlabored 07-05-2014 11:21-0400 SaO2% (BldA) [Mass fraction] 97 % Valentina Lamb RN [facility]; [facility] Work Phone: 07-05-2014 11:21-0400 Weight 74.39 kg Isabelle Patiño [facility] Work Phone: 06-19-2014 08:50-0400 BMI (Body Mass Index) 27.04 kg/m2 Dianna Sagastume LPN [facility] Work Phone: 06-19-2014 08:50-0400 Body Temperature 97.6 [degF] Dianna Sagastume LPN [facility] Work Phone: Comment on above: Method: Oral 06-19-2014 08:50-0400 Body weight 73.71 kg Dianna Sagastume LPN [facility] Work Phone: 06-19-2014 08:50-0400 BP Diastolic 70 mm[Hg] Dianna Sagastume LPN [facility] Work Phone: Comment on above: Patient Position: Sitting; Cuff Location : Left Arm; Cuff Size: Standard 06-19-2014 08:50-0400 BP Systolic 120 mm[Hg] Dianna Sagastume LPN [facility] Work Phone: Comment on above: Patient Position: Sitting; Cuff Location : Left Arm; Cuff Size: Standard 06-19-2014 08:50-0400 BSA (Body Surface Area) 1.81 m2 Dianna Sagastume LPN [facility] Work Phone: 06-19-2014 08:50-0400 Height 165.1 cm Dianna Sagastume LPN [facility] Work Phone: 06-19-2014 08:50-0400 Pulse (Heart Rate) 66 /min Dianna Sagastume LPN [facility] Work Phone: Comment on above: Pattern: Regular 06-19-2014 08:50-0400 Pulse Oximetry 98 % Isabelle Patiño [facility] Work Phone: Comment on above: Room air 06-19-2014 08:50-0400 Respiratory Rate 18 /min Dianna Sagastume LPN [facility] Work Phone: 06-19-2014 08:50-0400 SaO2% (BldA) [Mass fraction] 98 % Dianna Sagastume LPN [facility]; [facility] Work Phone: 06-19-2014 08:50-0400 Weight 73.71 kg Isabelle Kaylyn [facility] Work Phone: 06-11-2014 11:02-0400 BMI (Body Mass Index) 27.04 kg/m2 Richelle Campos RN [facility] Work Phone: Comment on above: hearing Grzegorz Ventura and had glaucoma te s done 02/0606-11-2014 11:02-0400 Body weight 73.71 kg Richelle Campos RN [facility] Work Phone: Comment on above: hearing Grzegorz Ventura and had glaucoma te s done 02/0606-11-2014 11:02-0400 BP Diastolic 78 mm[Hg] Richelle Campos RN [facility] Work Phone: Comment on above: Patient Position: Sitting; Cuff Location : Left Arm; Cuff Size: Large hearing Grzegorz Ventura and had glaucoma cel[place] done 02/0606-11-2014 11:02-0400 BP Systolic 128 mm[Hg] Richelle Campos RN [facility] Work Phone: Comment on above: Patient Position: Sitting; Cuff Location : Left Arm; Cuff Size: Large hearing Grzegorz Ventura and had glaucoma cel[place] done 02/0606-11-2014 11:02-0400 BSA (Body Surface Area) 1.81 m2 Richelle Campos RN [facility] Work Phone: Comment on above: hearing Grzegorz Ventura and had glaucoma te s done 02/0606-11-2014 11:02-0400 Height 165.1 cm Richelle Campos RN [facility] Work Phone: Comment on above: hearing costalDr Lorenzo and had glaucoma te s done 02/0606-11-2014 11:02-0400 Pulse (Heart Rate) 69 /min Richelle Campos RN [facility] Work Phone: Comment on above: Pattern: Regular hearing Grzegorz Ventura and had glaucoma celeste done 02/0606-11-2014 11:02-0400 Pulse Oximetry 98 % Isabelle Patiño [facility] Work Phone: Comment on above: Room air hearing Grzegorz Ventura and had glaucoma celeste done 02/0606-11-2014 11:02-0400 Respiratory Rate 18 /min Richelle Campos RN [facility] Work Phone: Comment on above: Pattern: Unlabored hearing Meenakshir Lorenzo and had glaucoma celeste done 02/0606-11-2014 11:02-0400 SaO2% (BldA) [Mass fraction] 98 % Richelle Campos RN [facility]; [facility] Work Phone: 06-11-2014 11:02-0400 Weight 73.71 kg Isabelle Patiño [facility] Work Phone: Comment on above: hearing Grzegorz Ventura and had glaucoma te s done 02/0604-04-2014 10:58-0400 BMI (Body Mass Index) 26.97 kg/m2 [facility] Work Phone: 04-04-2014 10:58-0400 Body Temperature 96.8 [degF] [facility] Work Phone: Comment on above: Method: Oral 04-04-2014 10:58-0400 Body weight 73.51 kg Marilynn Chanel [facility] Work Phone: 04-04-2014 10:58-0400 BP Diastolic 68 mm[Hg] [facility] Work Phone: Comment on above: Patient Position: Sitting; Cuff Location : Left Arm; Cuff Size: Standard 04-04-2014 10:58-0400 BP Systolic 115 mm[Hg] [facility] Work Phone: Comment on above: Patient Position: Sitting; Cuff Location : Left Arm; Cuff Size: Standard 04-04-2014 10:58-0400 BSA (Body Surface Area) 1.81 m2 [facility] Work Phone: 04-04-2014 10:58-0400 Height 165.1 cm [facility] Work Phone: 04-04-2014 10:58-0400 Pulse (Heart Rate) 61 /min Marilynn Chanel [facility] Work Phone: Comment on above: Pattern: Regular 04-04-2014 10:58-0400 Pulse Oximetry 98 % Isabelle Patiño [facility] Work Phone: Comment on above: Room air 04-04-2014 10:58-0400 Respiratory Rate 16 /min Marilynn Chanel [facility] Work Phone: Comment on above: Pattern: Unlabored 04-04-2014 10:58-0400 SaO2% (BldA) [Mass fraction] 98 % Marilynn Chanel [facility]; [facility] Work Phone: 04-04-2014 10:58-0400 Weight 73.51 kg Isabelle Patiño [facility] Work Phone: 01-03-2014 11:39-0400 BMI (Body Mass Index) 27.8 kg/m2 Richelle Campos RN [facility] Work Phone: 01-03-2014 11:39-0400 Body Temperature 96.7 [degF] Richelle Campos RN [facility] Work Phone: Comment on above: Method: Oral 01-03-2014 11:39-0400 Body weight 75.78 kg Richelle Campos RN [facility] Work Phone: 01-03-2014 11:39-0400 BP Diastolic 70 mm[Hg] Richelle Campos RN [facility] Work Phone: Comment on above: Patient Position: Sitting; Cuff Location : Left Arm; Cuff Size: Large 01-03-2014 11:39-0400 BP Systolic 112 mm[Hg] Richelle Campos RN [facility] Work Phone: Comment on above: Patient Position: Sitting; Cuff Location : Left Arm; Cuff Size: Large 01-03-2014 11:39-0400 BSA (Body Surface Area) 1.83 m2 Richelle Campos RN [facility] Work Phone: 01-03-2014 11:39-0400 Height 165.1 cm Richelle Campos RN [facility] Work Phone: 01-03-2014 11:39-0400 Pulse (Heart Rate) 77 /min Richelle Campos RN [facility] Work Phone: Comment on above: Pattern: Regular 01-03-2014 11:39-0400 Pulse Oximetry 97 % Isabelle Patiño [facility] Work Phone: Comment on above: Room air 01-03-2014 11:39-0400 Respiratory Rate 18 /min Richelle Campos RN [facility] Work Phone: Comment on above: Pattern: Unlabored 01-03-2014 11:39-0400 SaO2% (BldA) [Mass fraction] 97 % Richelle Campos RN [facility]; [facility] Work Phone: 01-03-2014 11:39-0400 Weight 75.78 kg Isabelle Patiño [facility] Work Phone: 07-03-2013 11:09-0400 BMI (Body Mass Index) 26.64 kg/m2 Richelle Campos RN [facility] Work Phone: 07-03-2013 11:09-0400 Body weight 72.6 kg Richelle Campos RN [facility] Work Phone: 07-03-2013 11:09-0400 BP Diastolic 62 mm[Hg] Richelle Campos RN [facility] Work Phone: Comment on above: Patient Position: Sitting; Cuff Location : Left Arm; Cuff Size: Large 07-03-2013 11:09-0400 BP Systolic 124 mm[Hg] Richelle Campos RN [facility] Work Phone: Comment on above: Patient Position: Sitting; Cuff Location : Left Arm; Cuff Size: Large 07-03-2013 11:09-0400 BSA (Body Surface Area) 1.8 m2 Richelle Campos RN [facility] Work Phone: 07-03-2013 11:09-0400 Height 165.1 cm Richelle Campos RN [facility] Work Phone: 07-03-2013 11:09-0400 Pulse (Heart Rate) 67 /min Richelle Campos RN [facility] Work Phone: Comment on above: Pattern: Regular 07-03-2013 11:090400 Pulse Oximetry 98 % Isabelle Patiño [facility] Work Phone: Comment on above: Room air 07-03-2013 11:090400 Respiratory Rate 20 /min Richelle Campos RN [facility] Work Phone: Comment on above: Pattern: Unlabored 07-03-2013 11:09-0400 SaO2% (BldA) [Mass fraction] 98 % Richelle Campos RN [facility]; [facility] Work Phone: 07-03-2013 11:09-040 Weight 72.6 kg Isabelle Patiño [facility] Work Phone: 06-20-2013 11:22-0400 BMI (Body Mass Index) 26.63 kg/m2 Richelle Campos RN [facility] Work Phone: 06-20-2013 11:22-0400 Body weight 72.58 kg Richelle Campos RN [facility] Work Phone: 06-20-2013 11:22-0400 BP Diastolic 62 mm[Hg] Richelle Campos RN [facility] Work Phone: Comment on above: Patient Position: Sitting; Cuff Location : Left Arm; Cuff Size: Standard 06-20-2013 11:22-0400 BP Systolic 118 mm[Hg] Richelle Campos RN [facility] Work Phone: Comment on above: Patient Position: Sitting; Cuff Location : Left Arm; Cuff Size: Standard 06-20-2013 11:22-0400 BSA (Body Surface Area) 1.8 m2 Richelle Campos RN [facility] Work Phone: 06-20-2013 11:22-0400 Height 165.1 cm Richelle Campos RN [facility] Work Phone: 06-20-2013 11:22-0400 Pulse (Heart Rate) 66 /min Richelle Campos RN [facility] Work Phone: Comment on above: Pattern: Regular 06-20-2013 11:22-0400 Pulse Oximetry 92 % Isabelle Patiño [facility] Work Phone: Comment on above: Room air 06-20-2013 11:22-0400 Respiratory Rate 20 /min Richelle Campos RN [facility] Work Phone: Comment on above: Pattern: Unlabored 06-20-2013 11:22-0400 SaO2% (BldA) [Mass fraction] 92 % Richelle Campos RN [facility]; [facility] Work Phone: 06-20-2013 11:22-0400 Weight 72.58 kg Isabelle Patiño [facility] Work Phone: 03-15-2013 11:21-0400 BMI (Body Mass Index) 26.65 kg/m2 Richelle Campos RN [facility] Work Phone: 03-15-2013 11:21-0400 Body Temperature 98.3 [degF] Richelle Campos RN [facility] Work Phone: Comment on above: Method: Oral 03-15-2013 11:210400 Body weight 72.63 kg Richelle Campos RN [facility] Work Phone: 03-15-2013 11:21-0400 BP Diastolic 62 mm[Hg] Richelle Campos RN [facility] Work Phone: Comment on above: Patient Position: Sitting; Cuff Location : Left Arm; Cuff Size: Large 03-15-2013 11:21-0400 BP Systolic 110 mm[Hg] Richelle Campos RN [facility] Work Phone: Comment on above: Patient Position: Sitting; Cuff Location : Left Arm; Cuff Size: Large 03-15-2013 11:21-0400 BSA (Body Surface Area) 1.8 m2 Richelle Campos RN [facility] Work Phone: 03-15-2013 11:21-0400 Height 165.1 cm Richelle Campos RN [facility] Work Phone: 03-15-2013 11:21-0400 Pulse (Heart Rate) 64 /min Richelle Campos RN [facility] Work Phone: Comment on above: Pattern: Regular 03-15-2013 11:21-0400 Respiratory Rate 18 /min Richelle Campos RN [facility] Work Phone: Comment on above: Pattern: Unlabored 03-15-2013 11:21-0400 Weight 72.63 kg Isabelle Patiño [facility] Work Phone: 10-11-2012 11:18-0500 BMI (Body Mass Index) 26.87 kg/m2 Richelle Campos RN [facility] Work Phone: 10-11-2012 11:18-0500 Body Temperature 97.8 [degF] Richelle Campos RN [facility] Work Phone: Comment on above: Method: Oral 10-11-2012 11:18-0500 Body weight 73.26 kg Richelle Campos RN [facility] Work Phone: 10-11-2012 11:18-0500 BP Diastolic 60 mm[Hg] Richelle Campos RN [facility] Work Phone: Comment on above: Patient Position: Sitting; Cuff Location : Left Arm; Cuff Size: Large 10-11-2012 11:18-0500 BP Systolic 110 mm[Hg] Richelle Campos RN [facility] Work Phone: Comment on above: Patient Position: Sitting; Cuff Location : Left Arm; Cuff Size: Large 10-11-2012 11:18-0500 BSA (Body Surface Area) 1.81 m2 Richelle Campos RN [facility] Work Phone: 10-11-2012 11:18-0500 Height 165.1 cm Richelle Campos RN [facility] Work Phone: 10-11-2012 11:18-0500 Pulse (Heart Rate) 64 /min Richelle Campos RN [facility] Work Phone: Comment on above: Pattern: Regular 10-11-2012 11:18-0500 Respiratory Rate 18 /min Richelle Campos RN [facility] Work Phone: Comment on above: Pattern: Unlabored 10-11-2012 11:18-0500 Weight 73.26 kg Isabelle Patiño [facility] Work Phone: 07-07-2012 13:10-0400 BMI (Body Mass Index) 27.7 kg/m2 Richelle Campos RN [facility] Work Phone: 07-07-2012 13:100400 Body Temperature 97.9 [degF] Richelle Campos RN [facility] Work Phone: Comment on above: Method: Oral 07-07-2012 13:100400 Body weight 75.5 kg Richelle Campos RN [facility] Work Phone: 07-07-2012 13:10-0400 BP Diastolic 68 mm[Hg] Richelle Campos RN [facility] Work Phone: Comment on above: Patient Position: Sitting; Cuff Location : Left Arm; Cuff Size: Large 07-07-2012 13:10-0400 BP Systolic 110 mm[Hg] Richelle Campos RN [facility] Work Phone: Comment on above: Patient Position: Sitting; Cuff Location : Left Arm; Cuff Size: Large 07-07-2012 13:100400 BSA (Body Surface Area) 1.83 m2 Richelle Campos RN [facility] Work Phone: 07-07-2012 13:100400 Height 165.1 cm Richelle Campos RN [facility] Work Phone: 07-07-2012 13:10-0400 Pulse (Heart Rate) 72 /min Richelle Campos RN [facility] Work Phone: Comment on above: Pattern: Regular 07-07-2012 13:100400 Respiratory Rate 20 /min Richelle Campos RN [facility] Work Phone: Comment on above: Pattern: Unlabored 07-07-2012 13:100400 Weight 75.5 kg Isabelle Patiño [facility] Work Phone: 07-04-2012 11:0400 BMI (Body Mass Index) 27.31 kg/m2 Richelle Campos RN [facility] Work Phone: 07-04-2012 11:0400 Body Temperature 98 [degF] Richelle Campos RN [facility] Work Phone: Comment on above: Method: Oral 07-04-2012 11:0400 Body weight 74.45 kg Richelle Campos RN [facility] Work Phone: 07-04-2012 11:19-0400 BP Diastolic 60 mm[Hg] Richelle Campos RN [facility] Work Phone: Comment on above: Patient Position: Sitting; Cuff Location : Left Arm; Cuff Size: Standard 07-04-2012 11:19-0400 BP Systolic 98 mm[Hg] Richelle Campos RN [facility] Work Phone: Comment on above: Patient Position: Sitting; Cuff Location : Left Arm; Cuff Size: Standard 07-04-2012 11:19-0400 BSA (Body Surface Area) 1.82 m2 Richelle Campos RN [facility] Work Phone: 07-04-2012 11:19-0400 Height 165.1 cm Richelle Campos RN [facility] Work Phone: 07-04-2012 11:19-0400 Pulse (Heart Rate) 56 /min Richelle Campos RN [facility] Work Phone: Comment on above: Pattern: Regular 07-04-2012 11:19-0400 Respiratory Rate 20 /min Richelle Campos RN [facility] Work Phone: Comment on above: Pattern: Unlabored 07-04-2012 11:19-0400 Weight 74.45 kg Isabelle Patiño [facility] Work Phone: 05-19-2011 10:54-0400 BMI (Body Mass Index) 26.65 kg/m2 Richelle Campos RN [facility] Work Phone: 05-19-2011 10:54-0400 Body Temperature 97.6 [degF] Richelle Campos RN [facility] Work Phone: Comment on above: Method: Oral 05-19-2011 10:54-0400 Body weight 72.63 kg Richelle Campos RN [facility] Work Phone: 05-19-2011 10:54-0400 BP Diastolic 64 mm[Hg] Richelle Campos RN [facility] Work Phone: Comment on above: Patient Position: Sitting; Cuff Location : Left Arm; Cuff Size: Standard 05-19-2011 10:54-0400 BP Systolic 118 mm[Hg] Richelle Campos RN [facility] Work Phone: Comment on above: Patient Position: Sitting; Cuff Location : Left Arm; Cuff Size: Standard 05-19-2011 10:54-0400 BSA (Body Surface Area) 1.8 m2 Richelle Campos RN [facility] Work Phone: 05-19-2011 10:54-0400 Height 165.1 cm Richelle Campos RN [facility] Work Phone: 05-19-2011 10:54-0400 Pulse (Heart Rate) 60 /min Richelle Campos RN [facility] Work Phone: Comment on above: Pattern: Regular 05-19-2011 10:54-0400 Respiratory Rate 20 /min Richelle Campos RN [facility] Work Phone: Comment on above: Pattern: Unlabored 05-19-2011 10:54-0400 Weight 72.63 kg Isabelle Patiño [facility] Work Phone: 03-17-2011 11:39-0400 BMI (Body Mass Index) 27.31 kg/m2 Dianna Sagastume LPN [facility] Work Phone: 03-17-2011 11:39-0400 Body Temperature 97.7 [degF] Dianna Mitesh LAO [facility] Work Phone: Comment on above: Method: Oral 03-17-2011 11:39-0400 Body weight 74.45 kg Dianna Mitesh LAO [facility] Work Phone: 03-17-2011 11:39-0400 BP Diastolic 74 mm[Hg] Dianna Mitesh LAO [facility] Work Phone: Comment on above: Patient Position: Sitting; Cuff Location : Left Arm; Cuff Size: Standard 03-17-2011 11:39-0400 BP Systolic 121 mm[Hg] Dianna Mitesh LAO [facility] Work Phone: Comment on above: Patient Position: Sitting; Cuff Location : Left Arm; Cuff Size: Standard 03-17-2011 11:39-0400 BSA (Body Surface Area) 1.82 m2 Dianna Mitesh LAO [facility] Work Phone: 03-17-2011 11:39-0400 Height 165.1 cm Dianna Sagastume LPN [facility] Work Phone: 03-17-2011 11:39-0400 Pulse (Heart Rate) 81 /min Dianna Sagastume LPN [facility] Work Phone: Comment on above: Pattern: Regular 03-17-2011 11:39-0400 Pulse Oximetry 94 % Isabelle Patiño [facility] Work Phone: Comment on above: Room air 03-17-2011 11:39-0400 Respiratory Rate 16 /min Dianna Sagastume LPN [facility] Work Phone: 03-17-2011 11:39-0400 SaO2% (BldA) [Mass fraction] 94 % Dianna Sagastume LPN [facility]; [facility] Work Phone: 03-17-2011 11:39-0400 Weight 74.45 kg Isabelle Patiño [facility] Work Phone: 03-08-2011 17:00-0400 BMI (Body Mass Index) 27.31 kg/m2 Richelle Campos RN [facility] Work Phone: 03-08-2011 17:00-0400 Body Temperature 98.3 [degF] Richelle Campos RN [facility] Work Phone: Comment on above: Method: Oral 03-08-2011 17:00-0400 Body weight 74.45 kg Richelle Campos RN [facility] Work Phone: 03-08-2011 17:00-0400 BP Diastolic 84 mm[Hg] Richelle Campos RN [facility] Work Phone: Comment on above: Patient Position: Sitting; Cuff Location : Left Arm; Cuff Size: Large 03-08-2011 17:00-0400 BP Systolic 122 mm[Hg] Richelle Campos RN [facility] Work Phone: Comment on above: Patient Position: Sitting; Cuff Location : Left Arm; Cuff Size: Large 03-08-2011 17:00-0400 BSA (Body Surface Area) 1.82 m2 Richelle Campos RN [facility] Work Phone: 03-08-2011 17:00-0400 Height 165.1 cm Richelle Campos RN [facility] Work Phone: 03-08-2011 17:00-0400 Pulse (Heart Rate) 84 /min Richelle Campos RN [facility] Work Phone: Comment on above: Pattern: Regular 03-08-2011 17:00-0400 Respiratory Rate 20 /min Richelle Campos RN [facility] Work Phone: Comment on above: Pattern: Unlabored 03-08-2011 17:00-0400 Weight 74.45 kg Isabelle Patiño [facility] Work Phone: 02-15-2011 10:56-0400 BMI (Body Mass Index) 27.31 kg/m2 Richelle Campos RN [facility] Work Phone: 02-15-2011 10:56-0400 Body weight 74.45 kg Richelle Campos RN [facility] Work Phone: 02-15-2011 10:56-0400 BP Diastolic 72 mm[Hg] Richelle Campos RN [facility] Work Phone: Comment on above: Patient Position: Sitting; Cuff Location : Left Arm; Cuff Size: Large 02-15-2011 10:56-0400 BP Systolic 128 mm[Hg] Richelle Campos RN [facility] Work Phone: Comment on above: Patient Position: Sitting; Cuff Location : Left Arm; Cuff Size: Large 02-15-2011 10:56-0400 BSA (Body Surface Area) 1.82 m2 Richelle Campos RN [facility] Work Phone: 02-15-2011 10:56-0400 Height 165.1 cm Richelle Campos RN [facility] Work Phone: 02-15-2011 10:56-0400 Pulse (Heart Rate) 60 /min Richelle Campos RN [facility] Work Phone: Comment on above: Pattern: Regular 02-15-2011 10:56-0400 Respiratory Rate 20 /min Richelle Campos RN [facility] Work Phone: Comment on above: Pattern: Unlabored 02-15-2011 10:56-0400 Weight 74.45 kg Isabelle Patiño [facility] Work Phone: 10-22-2010 11:02-0500 BMI (Body Mass Index) 27.2 kg/m2 Richelle Campos RN [facility] Work Phone: 10-22-2010 11:02-0500 Body weight 74.14 kg Richelle Campos RN [facility] Work Phone: 10-22-2010 11:02-0500 BP Diastolic 64 mm[Hg] Richelle Campos RN [facility] Work Phone: Comment on above: Patient Position: Sitting; Cuff Location : Left Arm; Cuff Size: Large 10-22-2010 11:02-0500 BP Systolic 128 mm[Hg] Richelle Campos RN [facility] Work Phone: Comment on above: Patient Position: Sitting; Cuff Location : Left Arm; Cuff Size: Large 10-22-2010 11:02-0500 BSA (Body Surface Area) 1.82 m2 Richelle Campos RN [facility] Work Phone: 10-22-2010 11:02-0500 Height 165.1 cm Richelle Campos RN [facility] Work Phone: 10-22-2010 11:02-0500 Pulse (Heart Rate) 72 /min Richelle Campos RN [facility] Work Phone: Comment on above: Pattern: Regular 10-22-2010 11:02-0500 Respiratory Rate 18 /min Richelle Campos RN [facility] Work Phone: Comment on above: Pattern: Unlabored 10-22-2010 11:02-0500 Weight 74.14 kg Isabelle Patiño [facility] Work Phone: 07-16-2010 10:51-0400 BMI (Body Mass Index) 27.49 kg/m2 Richelle Campos RN [facility] Work Phone: 07-16-2010 10:51-0400 Body weight 74.93 kg Richelle Campos RN [facility] Work Phone: 07-16-2010 10:51-0400 BP Diastolic 70 mm[Hg] Richelle Campos RN [facility] Work Phone: Comment on above: Patient Position: Sitting; Cuff Location : Left Arm; Cuff Size: Large 07-16-2010 10:51-0400 BP Systolic 118 mm[Hg] Richelle Campos RN [facility] Work Phone: Comment on above: Patient Position: Sitting; Cuff Location : Left Arm; Cuff Size: Large 07-16-2010 10:51-0400 BSA (Body Surface Area) 1.82 m2 Richelle Campos RN [facility] Work Phone: 07-16-2010 10:51-0400 Height 165.1 cm Richelle Campos RN [facility] Work Phone: 07-16-2010 10:51-0400 Pulse (Heart Rate) 80 /min Richelle Campos RN [facility] Work Phone: Comment on above: Pattern: Regular 07-16-2010 10:51-0400 Respiratory Rate 18 /min Richelle Campos RN [facility] Work Phone: Comment on above: Pattern: Unlabored 07-16-2010 10:51-0400 Weight 74.93 kg Isabelle Patiño [facility] Work Phone: 04-17-2010 10:28-0400 BMI (Body Mass Index) 27 kg/m2 Richelle Campos RN [facility] Work Phone: 04-17-2010 10:28-0400 Body weight 73.6 kg Richelle Campos RN [facility] Work Phone: 04-17-2010 10:28-0400 BP Diastolic 60 mm[Hg] Richelle Campos RN [facility] Work Phone: Comment on above: Patient Position: Sitting; Cuff Location : Left Arm; Cuff Size: Large 04-17-2010 10:28-0400 BP Systolic 122 mm[Hg] Richelle Campos RN [facility] Work Phone: Comment on above: Patient Position: Sitting; Cuff Location : Left Arm; Cuff Size: Large 04-17-2010 10:28-0400 BSA (Body Surface Area) 1.81 m2 Richelle Campos RN [facility] Work Phone: 04-17-2010 [id number] Height 165.1 cm Richelle Campos RN [facility] Work Phone: 04-17-2010 10:28-0400 Pulse (Heart Rate) 80 /min Richelle Campos RN [facility] Work Phone: Comment on above: Pattern: Regular 04-17-2010 10:28-0400 Respiratory Rate 20 /min Richelle Campos RN [facility] Work Phone: Comment on above: Pattern: Unlabored 04-17-2010 10:28-0400 Weight 73.6 kg Isabelle Patiño [facility] Work Phone: 01-16-2010 11:22-0400 BMI (Body Mass Index) 27.51 kg/m2 Richelle Campos RN [facility] Work Phone: 01-16-2010 11:22-0400 Body weight 74.99 kg Richelle Campos RN [facility] Work Phone: 01-16-2010 11:22-0400 BP Diastolic 62 mm[Hg] Richelle Campos RN [facility] Work Phone: Comment on above: Patient Position: Sitting; Cuff Location : Left Arm; Cuff Size: Large 01-16-2010 11:22-0400 BP Systolic 122 mm[Hg] Richelle Campos RN [facility] Work Phone: Comment on above: Patient Position: Sitting; Cuff Location : Left Arm; Cuff Size: Large 01-16-2010 11:22-0400 BSA (Body Surface Area) 1.82 m2 Richelle Campos RN [facility] Work Phone: 01-16-2010 11:22-0400 Height 165.1 cm Richelle Campos RN [facility] Work Phone: 01-16-2010 11:22-0400 Pulse (Heart Rate) 64 /min Richelle Campos RN [facility] Work Phone: Comment on above: Pattern: Regular 01-16-2010 11:22-0400 Respiratory Rate 20 /min Richelle Campos RN [facility] Work Phone: Comment on above: Pattern: Unlabored 01-16-2010 11:22-0400 Weight 74.99 kg Isabelle Patiño [facility] Work Phone: 11-10-2009 08:58-0500 Body Temperature 98.1 [degF] [facility] Work Phone: Comment on above: Method: Oral 11-10-2009 08:58-0500 BP Diastolic 72 mm[Hg] [facility] Work Phone: Comment on above: Patient Position: Sitting; Cuff Location : Left Arm; Cuff Size: Standard 11-10-2009 08:58-0500 BP Systolic 116 mm[Hg] [facility] Work Phone: Comment on above: Patient Position: Sitting; Cuff Location : Left Arm; Cuff Size: Standard 11-10-2009 08:58-0500 Pulse (Heart Rate) 78 /min [facility] Work Phone: Comment on above: Pattern: Regular 11-10-2009 08:58-0500 Pulse Oximetry 97 % Isabelle Patiño [facility] Work Phone: Comment on above: Room air 11-10-2009 08:58-0500 Respiratory Rate 18 /min [facility] Work Phone: Comment on above: Pattern: Unlabored 11-10-2009 08:58-0500 SaO2% (BldA) [Mass fraction] 97 % [facility]; [facility] Work Phone: 10-17-2009 11:28-0500 BMI (Body Mass Index) 27.84 kg/m2 Richelle Campos RN [facility] Work Phone: 10-17-2009 11:28-0500 Body weight 75.89 kg Richelle Campos RN [facility] Work Phone: 10-17-2009 11:28-0500 BP Diastolic 60 mm[Hg] Richelle Campos RN [facility] Work Phone: Comment on above: Patient Position: Sitting; Cuff Location : Left Arm; Cuff Size: Large 10-17-2009 11:28-0500 BP Systolic 120 mm[Hg] Richelle Campos RN [facility] Work Phone: Comment on above: Patient Position: Sitting; Cuff Location : Left Arm; Cuff Size: Large 10-17-2009 11:28-0500 BSA (Body Surface Area) 1.83 m2 Richelle Campos RN [facility] Work Phone: 10-17-2009 11:28-0500 Height 165.1 cm Richelle Campos RN [facility] Work Phone: 10-17-2009 11:28-0500 Pulse (Heart Rate) 60 /min Richelle Campos RN [facility] Work Phone: Comment on above: Pattern: Regular 10-17-2009 11:28-0500 Respiratory Rate 20 /min Richelle Campos RN [facility] Work Phone: Comment on above: Pattern: Unlabored 10-17-2009 11:28-0500 Weight 75.89 kg Isabelle Tellezon [facility] Work Phone: 07-30-2009 12:03-0500 BMI (Body Mass Index) 27.62 kg/m2 Dianna Sagastume [employer] [facility] Work Phone: 07-30-2009 12:03-0500 Body weight 75.3 kg Dianna Sagastume [employer] [facility] Work Phone: 07-30-2009 12:03-0500 BP Diastolic 68 mm[Hg] Dianna Sagastume [facility] Work Phone: Comment on above: Patient Position: Sitting; Cuff Location : Left Arm; Cuff Size: Standard 07-30-2009 12:03-0500 BP Systolic 116 mm[Hg] Dianna Sagastume [employer] [facility] Work Phone: Comment on above: Patient Position: Sitting; Cuff Location : Left Arm; Cuff Size: Standard 07-30-2009 12:03-0500 BSA (Body Surface Area) 1.83 m2 Dianna Sagastume [employer] [facility] Work Phone: 07-30-2009 12:03-0500 Head Circumference 0 cm Isabelle Patiño [facility] Work Phone: 07-30-2009 12:03-0500 Head Occipital-frontal circumference 0 cm Dianna Sagastume LPN [facility]; [facility] Work Phone: 07-30-2009 12:03-0500 Height 165.1 cm Dianna Sagastume LPN [facility] Work Phone: 07-30-2009 12:03-0500 Pulse (Heart Rate) 88 /min Dianna Sagastume LPN [facility] Work Phone: Comment on above: Pattern: Regular 07-30-2009 12:03-0500 Pulse Oximetry 95 % Isabelle Patiño [facility] Work Phone: Comment on above: Room air 07-30-2009 12:03-0500 Respiratory Rate 18 /min Dianna Sagastume LPN [facility] Work Phone: Comment on above: Pattern: Unlabored 07-30-2009 12:03-0500 SaO2% (BldA) [Mass fraction] 95 % Dianna Sagastume LPN [facility]; [facility] Work Phone: 07-30-2009 12:03-0500 Weight 75.3 kg Isabelle Patiño [facility] Work Phone: 07-18-2009 10:25-0400 BMI (Body Mass Index) 27.62 kg/m2 Richelle Campos RN [facility] Work Phone: 07-18-2009 10:25-0400 Body weight 75.3 kg Richelle Campos RN [facility] Work Phone: 07-18-2009 10:25-0400 BP Diastolic 60 mm[Hg] Richelle Campos RN [facility] Work Phone: Comment on above: Patient Position: Sitting; Cuff Location : Left Arm; Cuff Size: Large 07-18-2009 10:25-0400 BP Systolic 122 mm[Hg] Richelle Campos RN [facility] Work Phone: Comment on above: Patient Position: Sitting; Cuff Location : Left Arm; Cuff Size: Large 07-18-2009 10:25-0400 BSA (Body Surface Area) 1.83 m2 Richelle Campos RN [facility] Work Phone: 07-18-2009 10:250400 Head Circumference 0 cm Isabelle Patiño [facility] Work Phone: 07-18-2009 10:25-0400 Head Occipital-frontal circumference 0 cm Richelle Cmapos RN [facility]; [facility] Work Phone: 07-18-2009 10:25-0400 Height 165.1 cm Richelle Campos RN [facility] Work Phone: 07-18-2009 10:25-0400 Pulse (Heart Rate) 64 /min Richelle Campos RN [facility] Work Phone: Comment on above: Pattern: Regular 07-18-2009 10:25-0400 Respiratory Rate 20 /min Richelle Campos RN [facility] Work Phone: Comment on above: Pattern: Unlabored 07-18-2009 10:25-0400 Weight 75.3 kg Isabelle Kaylyn [facility] Work Phone: 04-17-2009 10:54-0400 Body weight 0 kg Olga He RN [facility] Work Phone: 04-17-2009 10:54-0400 BP Diastolic 70 mm[Hg] Olga He RN [facility] Work Phone: Comment on above: Patient Position: Sitting; Cuff Location : Left Arm; Cuff Size: Standard 04-17-2009 10:54-0400 BP Systolic 122 mm[Hg] Olga He RN [facility] Work Phone: Comment on above: Patient Position: Sitting; Cuff Location : Left Arm; Cuff Size: Standard 04-17-2009 10:54-0400 Head Circumference 0 cm Isabelle Kaylyn [facility] Work Phone: 04-17-2009 10:54-0400 Head Occipital-frontal circumference 0 cm Olga He RN [facility]; [facility] Work Phone: 04-17-2009 10:54-0400 Height 0 cm Olga He RN [facility] Work Phone: 04-17-2009 10:54-0400 Weight 0 kg Isabelle Patiño [facility] Work Phone: 04-17-2009 10:01-0400 BMI (Body Mass Index) 27.71 kg/m2 Richelle Campos RN [facility] Work Phone: 04-17-2009 10:01-0400 Body weight 75.52 kg Richelle Campos RN [facility] Work Phone: 04-17-2009 10:01-0400 BP Diastolic 88 mm[Hg] Richelle Campos RN [facility] Work Phone: Comment on above: Patient Position: Sitting; Cuff Location : Left Arm; Cuff Size: Large 04-17-2009 10:01-0400 BP Systolic 140 mm[Hg] Richelle Campos RN [facility] Work Phone: Comment on above: Patient Position: Sitting; Cuff Location : Left Arm; Cuff Size: Large 04-17-2009 10:-0400 BSA (Body Surface Area) 1.83 m2 Richelle Campos RN [facility] Work Phone: 04-17-2009 10:01-0400 Head Circumference 0 cm Isabelle Patiño [facility] Work Phone: 04-17-2009 10:01-0400 Head Occipital-frontal circumference 0 cm Richelle Campos RN [facility]; [facility] Work Phone: 04-17-2009 10:01-0400 Height 165.1 cm Richelle Campos RN [facility] Work Phone: 04-17-2009 10:01-0400 Pulse (Heart Rate) 72 /min Richelle Campos RN [facility] Work Phone: Comment on above: Pattern: Regular 04-17-2009 10:-0400 Respiratory Rate 20 /min Richelle Campos RN [facility] Work Phone: Comment on above: Pattern: Unlabored 04-17-2009 10:01-0400 Weight 75.52 kg Isabelle Patiño [facility] Work Phone: 10-08-2008 10:25-0500 BMI (Body Mass Index) 29.04 kg/m2 Richelle Campos RN [facility] Work Phone: 10-08-2008 10:25-0500 Body weight 79.15 kg Richelle Campos RN [facility] Work Phone: 10-08-2008 10:25-0500 BP Diastolic 70 mm[Hg] Richelle Campos RN [facility] Work Phone: Comment on above: Patient Position: Sitting; Cuff Location : Left Arm; Cuff Size: Large 10-08-2008 10:25-0500 BP Systolic 122 mm[Hg] Richelle Campos RN [facility] Work Phone: Comment on above: Patient Position: Sitting; Cuff Location : Left Arm; Cuff Size: Large 10-08-2008 10:25-0500 BSA (Body Surface Area) 1.87 m2 Richelle Campos RN [facility] Work Phone: 10-08-2008 10:25-0500 Head Circumference 0 cm Isabelle Patiño [facility] Work Phone: 10-08-2008 10:25-0500 Head Occipital-frontal circumference 0 cm Richelle Campos RN [facility]; [facility] Work Phone: 10-08-2008 10:25-0500 Height 165.1 cm Richelle Campos RN [facility] Work Phone: 10-08-2008 10:25-0500 Pulse (Heart Rate) 80 /min Richelle Campos RN [facility] Work Phone: Comment on above: Pattern: Regular 10-08-2008 10:25-0500 Respiratory Rate 18 /min Richelle Campos RN [facility] Work Phone: Comment on above: Pattern: Unlabored 10-08-2008 10:25-0500 Weight 79.15 kg Isabelle Patiño [facility] Work Phone: 09-11-2008 11:52-0500 BMI (Body Mass Index) 28.82 kg/m2 Richelle Campos RN [facility] Work Phone: 09-11-2008 11:52-0500 Body weight 78.56 kg Richelle Campos RN [facility] Work Phone: 09-11-2008 11:52-0500 BP Diastolic 80 mm[Hg] Richelle Campos RN [facility] Work Phone: Comment on above: Patient Position: Sitting; Cuff Location : Left Arm; Cuff Size: Standard 09-11-2008 11:52-0500 BP Systolic 138 mm[Hg] Richelle Campos RN [facility] Work Phone: Comment on above: Patient Position: Sitting; Cuff Location : Left Arm; Cuff Size: Standard 09-11-2008 11:52-0500 BSA (Body Surface Area) 1.86 m2 Richelle Campos RN [facility] Work Phone: 09-11-2008 11:52-0500 Head Circumference 0 cm Isabelle Patiño [facility] Work Phone: 09-11-2008 11:52-0500 Head Occipital-frontal circumference 0 cm Richelle Campos RN [facility]; [facility] Work Phone: 09-11-2008 11:52-0500 Height 165.1 cm Richelle Campos RN [facility] Work Phone: 09-11-2008 11:52-0500 Pulse (Heart Rate) 64 /min Richelle Campos RN [facility] Work Phone: Comment on above: Pattern: Regular 09-11-2008 11:52-0500 Respiratory Rate 20 /min Richelle Campos RN [facility] Work Phone: Comment on above: Pattern: Unlabored 09-11-2008 11:52-0500 Weight 78.56 kg Isabelle Patiño [facility] Work Phone: 07-24-2008 11:46-0400 BMI (Body Mass Index) 28.02 kg/m2 Stefany Gracia [facility] Work Phone: 07-24-2008 11:46-0400 Body weight 76.37 kg Stefany Gracia [facility] Work Phone: 07-24-2008 11:46-0400 BP Diastolic 80 mm[Hg] Stefany Gracia [facility] Work Phone: Comment on above: Patient Position: Sitting; Cuff Location : Left Arm; Cuff Size: Standard 07-24-2008 11:46-0400 BP Systolic 142 mm[Hg] [facility] Work Phone: Comment on above: Patient Position: Sitting; Cuff Location : Left Arm; Cuff Size: Standard 07-24-2008 11:46-0400 BSA (Body Surface Area) 1.84 m2 [facility] Work Phone: 07-24-2008 11:46-0400 Head Circumference 0 cm Isabelle Patiño [facility] Work Phone: 07-24-2008 11:46-0400 Head Occipital-frontal circumference 0 cm [facility]; [facility] Work Phone: 07-24-2008 11:46-0400 Height 165.1 cm [facility] Work Phone: 07-24-2008 11:46-0400 Pulse (Heart Rate) 85 /min [facility] Work Phone: Comment on above: Pattern: Regular 07-24-2008 11:46-0400 Pulse Oximetry 95 % Isabelle Patiño [facility] Work Phone: Comment on above: Room air 07-24-2008 11:46-0400 Respiratory Rate 18 /min [facility] Work Phone: Comment on above: Pattern: Unlabored 07-24-2008 11:46-0400 SaO2% (BldA) [Mass fraction] 95 % [facility]; [facility] Work Phone: 07-24-2008 11:46-0400 Weight 76.37 kg Isabelle Patiño [facility] Work Phone: 06-14-2008 11:32-0400 BMI (Body Mass Index) 28.02 kg/m2 Richelle Campos RN [facility] Work Phone: 06-14-2008 11:32-0400 Body weight 76.37 kg Richelle Campos RN [facility] Work Phone: 06-14-2008 11:32-0400 BP Diastolic 78 mm[Hg] Richelle Campos RN [facility] Work Phone: Comment on above: Patient Position: Sitting; Cuff Location : Left Arm; Cuff Size: Standard 06-14-2008 11:32-0400 BP Systolic 120 mm[Hg] Richelle Campos RN [facility] Work Phone: Comment on above: Patient Position: Sitting; Cuff Location : Left Arm; Cuff Size: Standard 06-14-2008 11:32-0400 BSA (Body Surface Area) 1.84 m2 Richelle Campos RN [facility] Work Phone: 06-14-2008 11:32-0400 Head Circumference 0 cm Isabelle Patiño [facility] Work Phone: 06-14-2008 11:32-0400 Head Occipital-frontal circumference 0 cm Richelle Campos RN [facility]; [facility] Work Phone: 06-14-2008 11:32-0400 Height 165.1 cm Richelle Campos RN [facility] Work Phone: 06-14-2008 11:32-0400 Pulse (Heart Rate) 80 /min Richelle Campos RN [facility] Work Phone: Comment on above: Pattern: Regular 06-14-2008 11:32-0400 Respiratory Rate 20 /min Richelle Campos RN [facility] Work Phone: Comment on above: Pattern: Unlabored 06-14-2008 11:32-0400 Weight 76.37 kg Isabelle Patiño [facility] Work Phone: 03-14-2008 10:11-0400 BMI (Body Mass Index) 28.02 kg/m2 Richelle Campos RN [facility] Work Phone: 03-14-2008 10:11-0400 Body weight 76.37 kg Richelle Campos RN [facility] Work Phone: 03-14-2008 10:11-0400 BP Diastolic 80 mm[Hg] Richelle Campos RN [facility] Work Phone: Comment on above: Patient Position: Sitting; Cuff Location : Right Arm; Cuff Size: Standard 03-14-2008 10:11-0400 BP Systolic 132 mm[Hg] Richelle Campos RN [facility] Work Phone: Comment on above: Patient Position: Sitting; Cuff Location : Right Arm; Cuff Size: Standard 03-14-2008 10:11-0400 BSA (Body Surface Area) 1.84 m2 Richelle Campos RN [facility] Work Phone: 03-14-2008 [id number] Head Circumference 0 cm Isabelle Patiño [facility] Work Phone: 03-14-2008 [id number] Head Occipital-frontal circumference 0 cm Richelle Campos RN [facility]; [facility] Work Phone: 03-14-2008 10:11-0400 Height 165.1 cm Richelle Campos RN [facility] Work Phone: 03-14-2008 10:11-0400 Pulse (Heart Rate) 64 /min Richelle Campos RN [facility] Work Phone: Comment on above: Pattern: Regular 03-14-2008 10:11-0400 Respiratory Rate 20 /min Richelle Campos RN [facility] Work Phone: Comment on above: Pattern: Unlabored 03-14-2008 10:11-0400 Weight 76.37 kg Isabelle Patiño [facility] Work Phone: 12-06-2007 10:16-0400 BMI (Body Mass Index) 27.71 kg/m2 Richelle Campos RN [facility] Work Phone: 12-06-2007 10:16-0400 Body weight 75.52 kg Richelle Campos RN [facility] Work Phone: 12-06-2007 10:16-0400 BP Diastolic 66 mm[Hg] Richelle Campos RN [facility] Work Phone: Comment on above: Patient Position: Sitting; Cuff Location : Right Arm; Cuff Size: Standard 12-06-2007 10:16-0400 BP Systolic 118 mm[Hg] Richelle Campos RN [facility] Work Phone: Comment on above: Patient Position: Sitting; Cuff Location : Right Arm; Cuff Size: Standard 12-06-2007 10:16-0400 BSA (Body Surface Area) 1.83 m2 Richelle Campos RN [facility] Work Phone: 12-06-2007 10:16-0400 Head Circumference 0 cm Isabelle Patiño [facility] Work Phone: 12-06-2007 10:16-0400 Head Occipital-frontal circumference 0 cm Richelle Campos RN [facility]; [facility] Work Phone: 12-06-2007 10:16-0400 Height 165.1 cm Richelle Campos RN [facility] Work Phone: 12-06-2007 10:16-0400 Pulse (Heart Rate) 72 /min Richelle Campos RN [facility] Work Phone: Comment on above: Pattern: Regular 12-06-2007 10:16-0400 Respiratory Rate 20 /min Richelle Campos RN [facility] Work Phone: Comment on above: Pattern: Unlabored 12-06-2007 10:16-0400 Weight 75.52 kg Isabelle Patiño [facility] Work Phone: 08-28-2007 13:27-0500 BMI (Body Mass Index) 28.52 kg/m2 Richelle Campos RN [facility] Work Phone: 08-28-2007 13:27-0500 Body weight 77.74 kg Richelle Campos RN [facility] Work Phone: 08-28-2007 13:27-0500 BP Diastolic 72 mm[Hg] Richelle Campos RN [facility] Work Phone: Comment on above: Patient Position: Sitting; Cuff Location : Right Arm; Cuff Size: Standard 08-28-2007 13:27-0500 BP Systolic 124 mm[Hg] Richelle Campos RN [facility] Work Phone: Comment on above: Patient Position: Sitting; Cuff Location : Right Arm; Cuff Size: Standard 08-28-2007 13:27-0500 BSA (Body Surface Area) 1.85 m2 Richelle Campos RN [facility] Work Phone: 08-28-2007 13:27-0500 Head Circumference 0 cm Isabelle Patiño [facility] Work Phone: 08-28-2007 13:27-0500 Head Occipital-frontal circumference 0 cm Richelle Campos RN [facility]; [facility] Work Phone: 08-28-2007 13:27-0500 Height 165.1 cm Richelle Campos RN [facility] Work Phone: 08-28-2007 13:27-0500 Pulse (Heart Rate) 64 /min Richelle Campos RN [facility] Work Phone: Comment on above: Pattern: Regular 08-28-2007 13:27-0500 Respiratory Rate 16 /min Richelle Campos RN [facility] Work Phone: Comment on above: Pattern: Unlabored 08-28-2007 13:27-0500 Weight 77.74 kg Isabelle Patiño [facility] Work Phone: 05-24-2007 10:55-0400 Body weight 0 kg Olga He RN [facility] Work Phone: 05-24-2007 10:55-0400 BP Diastolic 70 mm[Hg] Olga He RN [facility] Work Phone: Comment on above: Patient Position: Sitting; Cuff Location : Left Arm; Cuff Size: Standard 05-24-2007 10:55-0400 BP Systolic 120 mm[Hg] Olga He RN [facility] Work Phone: Comment on above: Patient Position: Sitting; Cuff Location : Left Arm; Cuff Size: Standard 05-24-2007 10:55-0400 Head Circumference 0 cm Isabellelucero Patiño [facility] Work Phone: 05-24-2007 10:55-0400 Head Occipital-frontal circumference 0 cm Olga He RN [facility]; [facility] Work Phone: 05-24-2007 10:55-0400 Height 0 cm Olga He RN [facility] Work Phone: 05-24-2007 10:55-0400 Pulse (Heart Rate) 68 /min Olga He RN [facility] Work Phone: Comment on above: Pattern: Regular 05-24-2007 10:55-0400 Pulse Oximetry 97 % Isabelle Kaylyn [facility] Work Phone: Comment on above: Room air 05-24-2007 10:55-0400 Respiratory Rate 18 /min Olga He RN [facility] Work Phone: Comment on above: Pattern: Unlabored 05-24-2007 10:55-0400 SaO2% (BldA) [Mass fraction] 97 % Olga He RN [facility]; [facility] Work Phone: 05-24-2007 10:55-0400 Weight 0 kg Isabellelucero Patiño [facility] Work Phone: 05-24-2007 10:45-0400 Body weight 0 kg Olga He RN [facility] Work Phone: 05-24-2007 10:45-0400 BP Diastolic 62 mm[Hg] Olga He RN [facility] Work Phone: Comment on above: Patient Position: Sitting; Cuff Location : Left Arm; Cuff Size: Standard 05-24-2007 10:45-0400 BP Systolic 106 mm[Hg] Olga He RN [facility] Work Phone: Comment on above: Patient Position: Sitting; Cuff Location : Left Arm; Cuff Size: Standard 05-24-2007 10:45-0400 Head Circumference 0 cm Isabelle Kaylyn [facility] Work Phone: 05-24-2007 10:45-0400 Head Occipital-frontal circumference 0 cm Olga He RN [facility]; [facility] Work Phone: 05-24-2007 10:45-0400 Height 0 cm Olga He RN [facility] Work Phone: 05-24-2007 10:45-0400 Pulse (Heart Rate) 68 /min Olga He RN [facility] Work Phone: Comment on above: Pattern: Regular 05-24-2007 10:45-0400 Pulse Oximetry 96 % Isabelle Kaylyn [facility] Work Phone: Comment on above: Room air 05-24-2007 10:45-0400 Respiratory Rate 16 /min Olga He RN [facility] Work Phone: Comment on above: Pattern: Unlabored 05-24-2007 10:45-0400 SaO2% (BldA) [Mass fraction] 96 % Olga He RN [facility]; [facility] Work Phone: 05-24-2007 10:45-0400 Weight 0 kg Isabelle Patiño [facility] Work Phone: 04-24-2007 11:22-0400 Body Temperature 98.4 [degF] Dianna Sagastume LPN [facility] Work Phone: Comment on above: Method: Oral 04-24-2007 11:22-0400 Body weight 76.46 kg Dianna Sagastume LPN [facility] Work Phone: 04-24-2007 11:22-0400 BP Diastolic 78 mm[Hg] Dianna Sagastume LPN [facility] Work Phone: Comment on above: Patient Position: Sitting; Cuff Location : Left Arm; Cuff Size: Standard 04-24-2007 11:22-0400 BP Systolic 114 mm[Hg] Dianna Sagastume LPN [facility] Work Phone: Comment on above: Patient Position: Sitting; Cuff Location : Left Arm; Cuff Size: Standard 04-24-2007 11:22-0400 Head Circumference 0 cm Isabelle Patiño [facility] Work Phone: 04-24-2007 11:22-0400 Head Occipital-frontal circumference 0 cm Dianna Sagastume LPN [facility]; [facility] Work Phone: 04-24-2007 11:22-0400 Height 0 cm Dianna Sagastume LPN [facility] Work Phone: 04-24-2007 11:22-0400 Pulse (Heart Rate) 76 /min Dianna Sagastume LPN [facility] Work Phone: Comment on above: Pattern: Regular 04-24-2007 11:22-0400 Respiratory Rate 17 /min Dianna Sagastume LPN [facility] Work Phone: Comment on above: Pattern: Unlabored 04-24-2007 11:22-0400 Weight 76.46 kg Isabelle Patiño [facility] Work Phone: 04-12-2007 11:31-0400 BMI (Body Mass Index) 28.29 kg/m2 Olga He RN [facility] Work Phone: 04-12-2007 11:31-0400 Body Temperature 98.3 [degF] Olga He RN [facility] Work Phone: Comment on above: Method: Oral 04-12-2007 11:31-0400 Body weight 77.11 kg Olga He RN [facility] Work Phone: 04-12-2007 11:31-0400 BP Diastolic 78 mm[Hg] Olga He RN [facility] Work Phone: Comment on above: Patient Position: Sitting; Cuff Location : Left Arm; Cuff Size: Standard 04-12-2007 11:31-0400 BP Systolic 112 mm[Hg] Olga He RN [facility] Work Phone: Comment on above: Patient Position: Sitting; Cuff Location : Left Arm; Cuff Size: Standard 04-12-2007 11:31-0400 BSA (Body Surface Area) 1.85 m2 Olga He RN [facility] Work Phone: 04-12-2007 11:31-0400 Head Circumference 0 cm Isabelle Tellezon [facility] Work Phone: 04-12-2007 11:31-0400 Head Occipital-frontal circumference 0 cm Olga He RN [facility]; [facility] Work Phone: 04-12-2007 11:31-0400 Height 165.1 cm Olga He RN [facility] Work Phone: 04-12-2007 11:31-0400 Pulse (Heart Rate) 72 /min Olga He RN [facility] Work Phone: Comment on above: Pattern: Regular 04-12-2007 11:31-0400 Respiratory Rate 18 /min Olga He RN [facility] Work Phone: Comment on above: Pattern: Unlabored 04-12-2007 11:31-0400 Weight 77.11 kg Isabelle Tellezon [facility] Work Phone: Encounters Encounter Date Encounter Type Care Provider Facility Start: 05-29-2025 End: 05-29-2025 Patient encounter procedure Pawel Bell [facility] Work Phone: Start: 05-29-2025 End: 05-29-[address] Isabelle Patiño DO Work Phone: [facility] Start: 01-10-2025 End: 01-10-2025 ambulatory Isabelle Kaylyn [place] [place] Start: 11-09-2024 ambulatory Isabelle Kaylyn Facilit y:[facility] [place] Start: 11-09-2024 End: 11-09-2024 ambulatory Isabelle Kaylyn Facility:[facility] Start: 09-11-2024 End: 09-11-2024 ambulatory Isabelle Kaylyn Facility:[facility] [place] Start: 07-26-2024 End: 07-26-2024 ambulatory Isabelle Kaylyn Facility:[facility] Start: 03-12-2024 Telephone encounter Zeyad bernstein DO Work Phone: [facility] [place] Start: 07-20-2023 End: 07-20-2023 Patient encounter procedure Jefferson Jose LAO [facility] Start: 06-03-2023 End: 06-03-2023 Office outpatient visit 25 minutes Isabelle Kaylyn DO Work Phone: [facility] Start: 03-02-2023 End: 03-02-2023 Office outpatient visit 25 minutes Isabelle Kalyyn DO Work Phone: [facility] Start: 11-29-2022 ambulatory Isabelle Kaylyn DO [facility] Start: 11-29-2022 End: 11-29-2022 Office outpatient visit 25 minutes Isabelle Kaylyn DO Work Phone: [facility] Start: 11-29-2022 Isabelle Rosalindao n DO Work Phone: [facility] Start: 11-10-2022 End: 11-10-2022 Office outpatient visit 5 minutes Isabelle Kaylyn DO Work Phone: [facility] Start: 10-21-2022 Non-patient / Non-visit Dr. Bertin Patiño Work Phone: [facility] Start: 10-21-2022 End: 10-21-[address] Isabelle Patiño Work Phone: [facility] Work Phone: Start: 10-21-2022 End: 10-21-[address] [facility] Start: 07-28-2022 End: 07-29-2022 Office outpatient visit 15 minutes Isabelle Patiño DO Work Phone: [facility] Start: 07-28-2022 Isabelle chavira DO Work Phone: [facility] Start: 07-20-2022 Non-patient / Non-visit Dr. Bertin Patiño Work Phone: [facility] Start: 07-19-2022 End: 07-19-[address] Isabelle Patiño Work Phone: [facility] Work Phone: Start: 07-19-2022 End: 07-19-[address] [facility] Start: 07-16-2022 Isabelle chavira DO Work Phone: [facility] Start: 07-16-2022 End: 07-16-2022 Patient encounter procedure Ugo Dudley LPN [facility] Start: 07-16-2022 End: 07-16-2022 Periodic preventive med est patient 65yrs& older Isabelle Patiño DO Work Phone: [facility] Start: 06-07-2022 End: 06-07-2022 Office outpatient visit 25 minutes Isabelle Patiño DO Work Phone: [facility] Start: 03-16-2022 End: 03-16-2022 Patient encounter procedure [facility] Start: 03-02-2022 Isabelle Tellezo n DO Work Phone: [facility] Start: 01-21-2022 End: 01-21-2022 Office outpatient visit 40 minutes Isabelle Patiño DO Work Phone: [facility] Start: 10-16-2021 Isabelle Tellezo n DO Work Phone: [facility] Start: 10-16-2021 End: 10-16-2021 Office outpatient visit 15 minutes Isabelle Tellezon DO Work Phone: [facility] Start: 08-11-2020 End: 08-11-2020 Patient encounter procedure Isabelle Patiño DO Work Phone: [facility]; [facility] Work Phone: Start: 08-11-2020 End: 08-11-2020 Periodic preventive med est patient 65yrs& older Isabelle Patiño [facility] Start: 08-08-2020 End: 08-08-2020 Phone Encounter Isabelle Kaylyn [facility] Start: 08-08-2020 End: 08-08-2020 Isabelle Patiño DO Work Phone: [facility] Start: 06-26-2020 End: 06-27-2020 Office outpatient visit 25 minutes Isabelle Kaylyn [facility] Start: 06-26-2020 Review Isabelle Kaylyn [facility] Start: 02-25-2020 End: 02-25-2020 Office outpatient visit 25 minutes Isabelle Kaylyn [facility] Start: 10-19-2019 End: 10-19-2019 Patient encounter procedure [facility] Start: 08-29-2019 End: 08-29-2019 Office outpatient visit 25 minutes Isabelle Kaylyn [facility] Start: 08-08-2019 End: 08-08-2019 Patient encounter procedure Yen Williamramu TIANNA [facility]; [facility] Work Phone: Start: 08-08-2019 End: 08-08-2019 Periodic preventive med est patient 65yrs& older Isabelle Patiño [facility] Start: 07-25-2018 End: 07-25-2018 Patient encounter procedure Yen Nolan TIANNA [facility]; [facility] Work Phone: Start: 07-25-2018 End: 07-25-2018 Periodic preventive med est patient 65yrs& older Isabelle Kaylyn [facility] Start: 05-17-2018 End: 05-17-2018 Office outpatient visit 25 minutes Isabelle Patiño [facility] Start: 04-05-2018 End: 04-05-2018 Office outpatient visit 25 minutes Isabelle Kaylyn [facility] Start: 02-14-2018 End: 02-15-2018 Office outpatient visit 25 minutes Isabelle Patiño [facility] Start: 11-08-2017 End: 11-08-2017 Office outpatient visit 25 minutes Isabelle Patiño [facility] Start: 06-27-2017 End: 06-27-2017 Patient encounter procedure Isabelle Patiño DO Work Phone: [facility] Start: 06-27-2017 End: 06-27-2017 Periodic preventive med est patient 65yrs& older Isabelle Kaylyn [facility] Start: 05-05-2017 End: 05-05-2017 Office outpatient visit 15 minutes Isabelle Patiño [facility] Start: 12-23-2016 End: 12-23-2016 Office outpatient visit 15 minutes Isabelle Kaylyn [facility] Start: 06-24-2016 End: 06-24-2016 Patient encounter procedure Isabelle Patiño DO Work Phone: [facility] Start: 06-24-2016 End: 06-24-2016 Periodic preventive med est patient 67yrs& older Isabelle Kaylyn [facility] Start: 06-17-2016 End: 06-17-2016 Office outpatient visit 25 minutes Isabelle Patiño [facility] Start: 02-13-2016 End: 02-13-2016 Office outpatient visit 25 minutes Isabelle Patiño [facility] Start: 11-12-2015 End: 11-12-2015 Office outpatient visit 25 minutes Isabelle Patiño [facility] Start: 07-17-2015 End: 07-17-2015 Office outpatient visit 5 minutes Isabelle Patiño [facility] Start: 07-08-2015 End: 07-08-2015 Office outpatient visit 25 minutes Isabelle Patiño [facility] Start: 06-19-2015 End: 06-19-2015 Patient encounter procedure Isabelle Patiño DO Work Phone: [facility] Start: 06-19-2015 End: 06-19-2015 Periodic preventive med est patient 65yrs& older Isabelle [facility] Start: 04-10-2015 End: 04-10-2015 Office outpatient visit 25 minutes Isabelle [facility] Start: 01-24-2015 End: 01-24-2015 Office outpatient visit 10 minutes Isabelle Patiño [facility] Start: 01-09-2015 End: 01-09-2015 Office outpatient visit 25 minutes Isabelle Patiño [facility] Start: 10-10-2014 End: 10-10-2014 Office outpatient visit 15 minutes Isabelle Patiño [facility] Start: 08-06-2014 End: 08-06-2014 Office consultation new/estab patient 40 min Isabelle Patiño [facility] Start: 07-16-2014 End: 07-16-2014 Office outpatient visit 15 minutes Isabelle Patiño [facility] Start: 07-05-2014 End: 07-05-2014 Office outpatient visit 25 minutes Isabelle Patiño [facility] Start: 06-19-2014 End: 06-20-2014 Office outpatient visit 5 minutes Isabelle Patiño [facility] Start: 06-11-2014 End: 06-11-2014 Office outpatient new 20 minutes Isabelle Patiño [facility] Start: 06-11-2014 End: 06-11-2014 Patient encounter procedure Isabelle Patiño DO Work Phone: [facility] Start: 04-04-2014 End: 04-04-2014 Patient encounter Isabelle Kaylyn [facility] Start: 04-04-2014 End: 04-04-2014 Isabellefred Patiño DO Work Phone: [facility] Start: 01-04-2014 End: 01-04-2014 Patient encounter Isabelle Kaylyn [facility] Start: 01-04-2014 End: 01-04-2014 Phone Encounter Isabelle Kaylyn [facility] Start: 01-04-2014 End: 01-04-2014 Isabellefred Patiño DO Work Phone: [facility] Start: 01-03-2014 End: 01-03-2014 Patient encounter Isabelle Patiño [facility] Start: 01-03-2014 End: 01-03-2014 Isabelle Patiño DO Work Phone: [facility] Start: 07-03-2013 End: 07-03-2013 Patient encounter Isabelle Patiño [facility] Start: 07-03-2013 End: 07-03-2013 Isabelle Patiño DO Work Phone: [facility] Start: 06-20-2013 End: 06-20-2013 Patient encounter Isabelle Patiño [facility] Start: 06-20-2013 End: 06-20-2013 Isabelle Patiño DO Work Phone: [facility] Start: 03-15-2013 End: 03-15-2013 Patient encounter Isabelle Patiño [facility] Start: 03-15-2013 End: 03-15-2013 Isabelle Patiño DO Work Phone: [facility] Start: 10-11-2012 End: 10-11-2012 Patient encounter Isabelle Patiño [facility] Start: 10-11-2012 End: 10-11-2012 Isabelle Patiño DO Work Phone: [facility] Start: 07-07-2012 End: 07-07-2012 Patient encounter Isabelle Patiño [facility] Start: 07-07-2012 End: 07-07-2012 Isabelle Patiño DO Work Phone: [facility] Start: 07-04-2012 End: 07-05-2012 Patient encounter Isabelle Patiño [facility] Start: 07-04-2012 End: 07-05-2012 Isabelle Patiño DO Work Phone: [facility] Start: 05-19-2011 End: 05-19-2011 Patient encounter Isabelle Patiño [facility] Start: 05-19-2011 End: 05-19-2011 Isabelle Patiño DO Work Phone: [facility] Start: 03-17-2011 End: 03-19-2011 Patient encounter Isabelle Patiño [facility] Start: 03-17-2011 End: 03-19-2011 Isabelle Tellezon DO Work Phone: [facility] Start: 03-09-2011 End: 03-09-2011 Annotation/Addendum Isabelle Patiño [facility] Start: 03-09-2011 End: 03-09-2011 Isabelle Tellezon DO Work Phone: [facility] Start: 03-08-2011 End: 03-08-2011 Patient encounter Isabelle Patiño [facility] Start: 03-08-2011 End: 03-08-2011 Isabelle Tellezon DO Work Phone: [facility] Start: 02-16-2011 End: 02-16-2011 Annotation/Addendum Isabelle Patiño [facility] Start: 02-16-2011 End: 02-16-2011 Isabelle Tellezon DO Work Phone: [facility] Start: 02-15-2011 End: 02-15-2011 Patient encounter Isabelle Patiño [facility] Start: 02-15-2011 End: 02-15-2011 Isabelle Kaylyn DO Work Phone: [facility] Start: 10-22-2010 End: 10-22-2010 Patient encounter Isabelle Patiño [facility] Start: 10-22-2010 End: 10-22-2010 Isbaelle Tellezon DO Work Phone: [facility] Start: 10-15-2010 End: 10-15-2010 Patient encounter Isabelle Patiño [facility] Start: 10-15-2010 End: 10-15-2010 Isabelle Kaylyn DO Work Phone: [facility] Start: 07-16-2010 End: 07-16-2010 Patient encounter Isabelle Patiño [facility] Start: 07-16-2010 End: 07-16-2010 Isabelle Kaylyn DO Work Phone: [facility] Start: 04-17-2010 End: 04-17-2010 Patient encounter Isabelle Patiño [facility] Start: 04-17-2010 End: 04-17-2010 Isabelle Kaylyn DO Work Phone: [facility] Start: 01-16-2010 End: 01-16-2010 Patient encounter Isabelle Patiño [facility] Start: 01-16-2010 End: 01-16-2010 Isabelle Patiño DO Work Phone: [facility] Start: 01-14-2010 End: 01-14-2010 Historical Summary Isabelle Patiño [facility] Start: 01-14-2010 End: 01-14-2010 Phone Encounter Isabelle Patiño [facility] Start: 01-14-2010 End: 01-14-2010 Isabelle Patiño DO Work Phone: [facility] Start: 01-09-2010 End: 01-09-2010 Patient encounter Isabelle Patiño [facility] Start: 01-09-2010 End: 01-09-2010 Isabelle Patiño DO Work Phone: [facility] Start: 11-10-2009 End: 11-10-2009 Patient encounter Isabelle Patiño [facility] Start: 11-10-2009 End: 11-10-2009 Isabelle Patiño DO Work Phone: [facility] Start: 10-17-2009 End: 10-17-2009 Patient encounter Isabelle Patiño [facility] Start: 10-17-2009 End: 10-17-2009 Isabelle Patiño DO Work Phone: [facility] Start: 07-30-2009 End: 07-30-2009 Patient encounter Isabelle Patiño [facility] Start: 07-30-2009 End: 07-30-2009 Isabelle Patiño DO Work Phone: [facility] Start: 07-18-2009 End: 07-18-2009 Patient encounter Isabelle Patiño [facility] Start: 07-18-2009 End: 07-18-2009 Isabelle Patiño DO Work Phone: [facility] Start: 04-17-2009 End: 04-17-2009 Patient encounter Isabelle Patioñ [facility] Start: 04-17-2009 End: 04-17-2009 Isabelle Patiño DO Work Phone: [facility] Start: 10-08-2008 End: 10-08-2008 Patient encounter Isabelle Patiño [facility] [employer] [facility] Start: 10-08-2008 End: 10-08-2008 Isabelle Patiño DO Work Phone: [facility] Start: 09-11-2008 End: 09-11-2008 Patient encounter Isabelle Patiño [facility] Start: 09-11-2008 End: 09-11-2008 Isabelle Patiño DO Work Phone: [facility] Start: 09-03-2008 End: 09-03-2008 Office outpatient visit 5 minutes Isabelle Paitño [facility] Start: 07-24-2008 End: 07-25-2008 Office outpatient visit 10 minutes Isabelle Patiño [facility] Start: 06-14-2008 End: 06-14-2008 Patient encounter Isabelle Patiño [facility] Start: 06-14-2008 End: 06-14-2008 Isabelle Patiño DO Work Phone: [facility] Start: 03-14-2008 End: 03-14-2008 Office outpatient visit 25 minutes Isabelle Patiño [facility] Start: 12-06-2007 End: 12-06-2007 Patient encounter Isabelle Patiño [facility] Start: 12-06-2007 End: 12-06-2007 Isabelle Patiño DO Work Phone: [facility] Start: 08-28-2007 End: 08-28-2007 Office outpatient visit 40 minutes Isabelle Patiño [facility] Start: 05-24-2007 End: 05-25-2007 Patient encounter Isabelle Patiño [facility] Start: 05-24-2007 End: 05-25-2007 Isabelle Patiño DO Work Phone: [facility] Start: 04-24-2007 End: 04-24-2007 Office outpatient visit 25 minutes Isabelle Patiño [facility] Start: 04-21-2007 End: 04-21-2007 Historical Summary Isabelle Patiño [facility] Start: 04-21-2007 End: 04-21-2007 Isabellefred Patiño DO Work Phone: [facility] Start: 04-12-2007 End: 04-12-2007 Patient encounter Isabelle Patiño [facility] Start: 04-12-2007 End: 04-12-2007 Isabelle Patiño DO Work Phone: [facility] Patient encounter procedure Yen Nolan [facility]; [facility] Work Phone: Patient encounter procedure Emily Onofre CT [facility]; [facility] Work Phone: Patient encounter procedure Yen Nolan [facility]; [facility] Work Phone: Patient encounter procedure Isabelle Patiño DO Work Phone: [facility]; [facility] Work Phone: Patient encounter procedure Jas Rockford [facility]; [facility] Work [facility]: [facility] Work Phone: Patient encounter procedure Jefferson Connellyor [employer] [facility]; [facility] Work Phone: Patient encounter procedure Jeffersonnegrita Ruizr [facility]; [facility] Work Phone: Patient encounter status Vane Patiño DO Work Phone: [facility]; [facility] Work Phone: Procedures Date Procedure Procedure Detail Performing Clinician Start: 03-22-2023 End: 03-22-2023 Procedure Note: See Note; NOTES: [facility] [place] [address] OFFICE VISIT Date of Service: 03/22/23 MR#: [id number] Acct: [id number] Name: SKYLER SANTOS Rep #: [id number] : 1935 Provider: Dr. Heather baeza MD Age/Sex: 87/M Location: [facility] Status: Signed HPI HPI History of Present Illness Details: 03/05/19: 87-year-old male with past medical history of coronary artery disease status post anterior ST elevation [place] in May 2012 treated with drug-eluting stent ostial LAD and Cutting Balloon atherectomy to mid LAD with residual stenoses that are being treated medically coming to see me for follow-up.??? He is doing very well from a cardiac standpoint.??? He denies any cardiac symptoms at this time. 03/04/2020: Patient is doing well from a cardiac standpoint.??? He denies any cardiac complaints at this time. 03/10/21: Patient is doing well from a cardiac standpoint.??? No cardiac complaints at this time. 03/23/2022: Patient is doing well. Denies any cardiac complaints. 03/22/2023: Patient is doing well. Denies any chest pain or shortness of breath. He still works in the garden. When he looks up or when he bends down and gets up quickly he has some dizziness. Intake Vital Signs 03/23/22 10:52 03/22/23 11:51 03/22/23 11:51 Height 5 ft 5 in 5 ft 5 in 5 ft 5 in Weight: 154 lb BMI 25.6 BP 119/80 Blood Pressure Location Lt brachial Position Sitting Respiration 18 Pulse 91 Pulse Source Monitor Intake Visit Reasons: 1 Y FU [employer] Required: No Is patient in pain?: No Allergies No Known Allergies Allergy (Verified 03/22/23 11:51) Medications aspirin 81 mg tablet,delayed release 81 mg PO DAILY@0800 02/20/14 [History Confirmed 03/23/22] nitroglycerin 0.4 mg sublingual tablet (Nitrostat) 0.4 mg sublingual Q5-15M PRN chest pain #25 tabs 03/10/21 [Rx Confirmed 03/23/22] atorvastatin 80 mg tablet 80 mg PO QHS #90 tabs 10/15/21 [Rx Confirmed 03/23/22] lisinopril 2.5 mg tablet 2.5 mg PO DAILY #90 tabs 10/15/21 [Rx Confirmed 03/23/22] metoprolol tartrate 25 mg tablet 12.5 mg PO BID #30 tabs 02/05/22 [Rx Confirmed 03/23/22] ascorbic acid (vitamin C) 500 mg tablet 500 mg PO DAILY 03/23/22 [History Confirmed 03/23/22] PFSH Medical History Atherosclerotic heart disease of [place] coronary artery without angina pectoris Carotid stenosis COPD (chronic obstructive pulmonary disease) Coronary artery disease involving [place] coronary artery Diverticulosis History of kidney stones History of prostate cancer HLD (hyperlipidemia) Mitral regurgitation Non-rheumatic mitral regurgitation Presence of stent in coronary artery ( 06/16/12) Type 2 diabetes mellitus without complication Surgical History H/O coronary angioplasty Presence of coronary angioplasty implant and graft ( 06/16/12) Family History Mother Diabetes Brother Diabetes Myocardial infarction Father , Before age 55 Myocardial infarction CAD (coronary artery disease) Social History Smoking Status: Current every day smoker tobacco type: cigars per week: 7 alcohol intake: never substance use type: does not use caffeine: Yes ROS Const Const: Negative for fatigue, weakness, headache(s), frequent falls, difficulty sleeping or excessive sweating Eyes Eyes: Negative for loss of peripheral vision, transient loss of vision, blurry vision, double vision or tunnel vision ENT ENT: Positive for dizziness and balance problems (Occasionally when he standing up); Negative for headache(s) or Nosebleed/epistaxis Cardio Chest Pain: No Palpitations: No Edema: None Muscle aches with walking: None Resp Respiratory: Negative for SOB with activity, SOB at rest, SOB orthopnea SOB lying down, Cough or paroxysmal nocturnal dyspnea GI GI: Negative nausea, vomiting, heartburn or black,tarry stools : Negative for hematuria Musc Musc: Positive for joint pain and balance problems (Occasionally when he standing up); Negative for muscle aches/ myalgia or muscle weakness Skin Skin: Negative non-healing lesions, rash or unusual bruising Neuro Neuro: Positive for dizziness; Negative for near syncope, syncope, frequent falls, headache(s), weakness, blurry vision, double vision or lack of coordination Praveen Hematologic/Lymphatic: Negative for easy bleeding or easy bruising Endo Endo: Negative for fatigue, excessive sweating or increased thirst/drinking Psych Psych: Negative for anxiety or depression Allergy Allergy/Immunology: Negative for hives and Negative for rash Supplemental Info Supplemental Information Labs: No Data to Display Diagnostics: Electrocardiogram Carotid Duplex Pulmonary: Pulmonary Function Test Past Visits: Cardiology Visit 06/27/23 Assessment and Plan Assessment and Plan (1) Atherosclerotic heart disease of [place] coronary artery without angina pectoris: Status: Acute Qualifiers: [place] vs. transplanted heart: [place] heart Qualified Code(s): I25.10 - Atherosclerotic heart disease of [place] coronary artery without angina pectoris Comment: 06/16/2012 PCI of ostial LAD with MEILNDA and cutting balloon arthrectomy to mid LAD. [facility]. Dr. Burgos. Plan: Continue present management (2) Presence of stent in coronary artery: Status: Acute Comment: 06/16/2012 PCI of ostial LAD with MELINDA and cutting balloon arthrectomy to mid LAD. [facility]. Dr. Burgos. Plan: Continue present management (3) HLD (hyperlipidemia): Status: Chronic Qualifiers: Hyperlipidemia type: unspecified Qualified Code(s): E78.5 - Hyperlipidemia, unspecified Plan: Continue statin (4) Non-rheumatic mitral regurgitation: Status: Acute Comment: Mild by echo in 2018. Plan Details Follow Up: 1 Year Coding Level of Care Code Off vis,est,level 2 Diagnoses Atherosclerotic heart disease of [place] coronary artery without angina pectoris I25.10 [place] vs. transplanted heart: [place] heart Presence of stent in coronary artery Z95.5 HLD (hyperlipidemia) E78.5 Hyperlipidemia type: unspecified Non-rheumatic mitral regurgitation I34.0 Coding Level of Care Code Off vis,est,level 2 Diagnoses Atherosclerotic heart disease of [place] coronary artery without angina pectoris I25.10 [place] vs. transplanted heart: [place] heart Presence of stent in coronary artery Z95.5 HLD (hyperlipidemia) E78.5 Hyperlipidemia type: unspecified Non-rheumatic mitral regurgitation I34.0 03/22/23 1232 <Electronically signed by Heather Burgos MD> Date Heather Burgos MD Cosigner Signature: Date (if applicable) CC: Dr. Isabelle Patiño, DO Isabelle Patiño DO Work Phone: Start: 12-09-2022 End: 12-10-2022 Procedure Note: See Note; NOTES: [facility] Imaging Services [address] [place] [address] Lung Screening MR#: [id number] Acct: [id number] Name: SKYLER SANTOS Rep #: [id number] : 1935 M 87 From: Anthony Healy MD PCP: Dr. Isabelle Patiño, DO Status: REG CLI Study: Low Dose CT Lung Screening Date of Exam: 12/09 Exam# [id number] Ordering Dr: Isabelle Patiño DO STUDY: LOW DOSE CT LUNG CANCER SCREENING REASON FOR EXAM: Male, 87 years old. One pack per day smoker x72 years, history of prostate CA RADIATION DOSAGE (If Supplied By Facility): CTDIvol = ( 3.02 ) mGy, DLP = ( 100.05 ) mGycm TECHNIQUE: No contrast was administered. Low dose technique was utilized (average mAS-38 and kVp 120). 1.25 mm axial source images with a slice interval of 1.25-mm were reconstructed in lung windows. 2.5 mm axial source images with a slice interval of 2.5-mm were reconstructed in lung windows. 5.0 mm axial source images with a slice interval of 5.0-mm were reconstructed in soft tissue windows. COMPARISON: 03/13/2018 NODULES: Lung windows show underlying emphysema. A previously noted nodule in the right middle lobe is again identified on axial image 138. Since it has remained stable since 2018, no specific follow-up is needed. No new suspicious mass or nodule noted. No organized infiltrate or effusion. Thyroid gland is unremarkable. No suspicious axillary, mediastinal, or perihilar adenopathy, there are stable mediastinal lymph nodes measuring up to 1 cm in short axis dimension. There are calcified coronary vessels. No pericardial effusion. Limited cuts of the upper abdomen do not show suspicious abnormality. Bony structures show degenerative change CT/Low Dose CT Lung Screening IMPRESSION: Lung-RADS category 3 - Continue screening with LDCT in 6 months. IMPORTANT NOTES FOR USE: ACR Lung-RADS Version 1.1 Assessment Categories Release Date: 2018 Category: Coded 0-4 bases on nodule(s) with highest degree of suspicion. Negative screen is defined as categories 1 and 2; a positive screen is defined as categories 3 and 4. Category 3 and 4A nodules that are unchanged on interval CT should be coded as category 2, and individuals returned to screening in 12 months. Category 4X: Category 3 or 4 nodules with additional imaging findings that increase the suspicion of lung cancer, such as spiculation, GGN that doubles in size in 1 year, enlarged lymph notes, etc. Category Modifiers: S (significant finding unrelated to lung cancer) Electronically Signed: Michael Healy MD at 8:09 EDT Reading Location ID and State: [facility] , Service support , CC: Dr. Isabelle Patiño DO Hydrochloric Area Supervisor: Signed Isabelle Patiño DO Work Phone: Start: 10-21-2022 End: 10-21-2022 Procedure Note: See Note; NOTES: [facility] Cardiovascular Services [address] [facility] [place] [address] Carotid Duplex Ultrasound 10/21/22 1008 MR#: [id number] Acct: [id number] Name: SKYLER SANTOS Rep #: [id number] : 1935 87 From: Bronson Mcgowan MD Attending Dr: Dr. Isabelle Patiño DO Status: R EG CLI Ordering Dr: Isabelle Patiño DO Date: 10/21/22 Location: [facility] Sex: M C Admitted: Reason For Study: Stenosis Rt. Velocities/BP Lt. Velocities/BP Prox CCA 74.0/16.3 cm/sec. Prox CCA 81.5/20.1 cm/sec. Mid CCA 86.3/23.0 cm/sec. Mid CCA 77.3/21.2 cm/sec. Dist CCA 80.6/23.0 cm/sec. Dist CCA 65.2/20.1 cm/sec. Prox ICA 41.9/15.4 cm/sec. Prox ICA 55.1/9.7 cm/sec. Mid ICA 55.1/15.4 cm/sec. Mid ICA 60.7/19.2 cm/sec. Dist ICA 51.5/19.4 cm/sec. Dist ICA 56.6/19.2 cm/sec. Rt. ICA/CCA = 0.6. Lt. ICA/CCA = 0.8. Prox ECA 52.6/10.4 cm/sec. Prox ECA 91.2/16.3 cm/sec. Rt. Vert. 30.8/8.8 cm/sec. Lt. Vert. 40.9/9.7 cm/sec. Right Extracranial There is intimal thickening but no significant atherosclerotic plaque noted in the right common carotid artery. There is heterogeneous, irregular atherosclerotic plaque noted in the right internal carotid artery. The right internal carotid artery is very tortuous. There is heterogeneous, irregular atherosclerotic plaque noted in the right external carotid artery. Antegrade flow is noted in the right vertebral artery. Left Extracranial There is heterogeneous, irregular atherosclerotic plaque noted in the left common carotid artery. There is heterogeneous, irregular atherosclerotic plaque noted in the left internal carotid artery. The left internal carotid artery is very tortuous. There is heterogeneous, irregular atherosclerotic plaque noted in the left external carotid artery. Antegrade flow is noted in the left vertebral artery. Procedure Carotid Duplex 52402. This is a Carotid Duplex examination using B-mode, color flow and specral Doppler. The exam was diagnostic. Exam performed in department. VL/Carotid Duplex Ultrasound Interpretation Summary Mild (<50%) stenosis right extracranial internal carotid. Mild (<50%) stenosis left extracranial internal carotid. Patent and antegrade vertebrals bilaterally. Ordering Physician: Isabelle Patiño Referring Physician: Isabelle Patiño Performed By: Ck Stapleton, RVT 10/21/22 1513 Date Bronson Mcgowan MD CC: Dr. Isabelle Patiño DO Date Dictated: 10/21/22 1008 Date Transcribed: 10/21/221512 Hydrochloric Area Supervisor: Signed Isabelle Patiño DO Work Phone: Start: 07-20-2022 End: 07-20-2022 Procedure Note: See Note; NOTES: [facility] Pulmonary Services/Neurology [address] [place] [address] MR#: [id number] Acct: [id number] Name: SKYLER SANTOS Rep #: [id number] : 1935 87 From: En Ahn MD Referring Dr: Isabelle Patiño DO Status: REG CL I Location: [facility] Date: 07/19/22 Sex: M C COMPLETE PULMONARY FUNCTION TEST INTERPRETATION Brief HPI: Patient is an 87-year-old male, currently under the care of Dr. Patiño, who presents to [facility] for complete pulmonary function tests secondary to diagnosis of COPD. Respiratory therapist reports good effort and reproducible results. Interpretation: Forced expiration spirometry shows a mild large airways obstructive ventilatory defect with an FEV1 of 108% predicted. There is a significant bronchodilator response in FVC by strict ATS criteria. Spirograms are of good quality and plateau slowly, indicating slowly emptying areas of the lungs. The respiratory flow volume loop shows decreased expiratory flow rates at all lung volumes consistent with airway obstruction. Lung volumes by body plethysmography show a normal total lung capacity at 5.49 L, 108% predicted. All other lung volumes are within normal limits. Diffusion capacity by carbon monoxide is normal at 136% predicted. The airway resistance is elevated. No previous pulmonary function tests were available for review. Impression: Partially reversible mild large airways obstructive ventilatory defect with preserved lung volumes and diffusion capacity, and a pattern consistent with chronic bronchitis 07/20/22 0549 <Electronically signed by En Ahn MD> Date En Ahn MD CC: Dr. En Ahn MD; Dr. Isabelle Patiño, DO Date Dictated: 07/20/22547 Date Transcribed: 07/20/22547 Hydrochloric Area Supervisor: SANDRA Signed Isabelle Patiño DO Work Phone: Start: 03-23-2022 End: 03-23-2022 Procedure Note: See Note; NOTES: [facility] [address] [place] [address] OFFICE VISIT Date of Service: 03/23/22 MR#: [id number] Acct: [id number] Name: SKYLER SANTOS Rep #: [id number] : 1935 Provider: Dr. Heather baeza MD Age/Sex: 86/M Location: [facility] Status: Signed HPI HPI History of Present Illness Details: 03/05/19: 83-year-old male with past medical history of coronary artery disease status post anterior ST elevation [place] in May 2012 treated with drug-eluting stent ostial LAD and Cut[place] Balloon atherectomy to mid LAD with residual stenoses that are being treated medically coming to see me for follow-up.??? He is doing very well from a cardiac standpoint.??? He denies any cardiac symptoms at this time. 03/04/2020: Patient is doing well from a cardiac standpoint.??? He denies any cardiac complaints at this time. 03/10/21: Patient is doing well from a cardiac standpoint.??? No cardiac complaints at this time. 03/23/2022: Patient is doing well. Denies any cardiac complaints. 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 Accompanied by: Is patient in pain?: No Allergies No Known Allergies Allergy (Verified 03/23/22 10:58) Medications aspirin 81 mg tablet,delayed release 81 mg PO DAILY@0800 02/20/14 [History Confirmed 03/23/22] nitroglycerin 0.4 mg sublingual tablet (Nitrostat) 0.4 mg sublingual Q5-15M PRN chest pain #25 tabs 03/10/21 [Rx Confirmed 03/23/22] atorvastatin 80 mg tablet 80 mg PO QHS #90 tabs 10/15/21 [Rx Confirmed 03/23/22] clopidogrel 75 mg tablet 75 mg PO DAILY #90 tabs 10/15/21 [Rx Confirmed 03/23/22] lisinopril 2.5 mg tablet 2.5 mg PO DAILY #90 tabs 10/15/21 [Rx Confirmed 03/23/22] metoprolol tartrate 25 mg tablet 12.5 mg PO BID #30 tabs 02/05/22 [Rx Confirmed 03/23/22] ascorbic acid (vitamin C) 500 mg tablet 500 mg PO DAILY 03/23/22 [History Confirmed 03/23/22] Ejection fraction %: 60 to 64 PFSH Medical History Atherosclerotic heart disease of [place] coronary artery without angina pectoris Carotid stenosis COPD (chronic obstructive pulmonary disease) Coronary artery disease involving [place] coronary artery Diverticulosis History of kidney stones History of prostate cancer HLD (hyperlipidemia) Mitral regurgitation Non-rheumatic mitral regurgitation Presence of stent in coronary artery ( 06/16/12) Type 2 diabetes mellitus without complication Surgical History H/O coronary angioplasty Presence of coronary angioplasty implant and graft ( 06/16/12) Family History Mother Diabetes Brother Diabetes Myocardial infarction Father , Before age 55 Myocardial infarction CAD (coronary artery disease) Social History Smoking Status: Current every day smoker tobacco type: cigars per week: 7 alcohol intake: never substance use type: does not use caffeine: Yes ROS Const Const: Negative for fatigue, weakness, headache(s), frequent falls, difficulty sleeping or excessive sweating Eyes Eyes: Negative for loss of peripheral vision, transient loss of vision, blurry vision, double vision or tunnel vision ENT ENT: Positive for balance problems (Occasionally when he standing up); Negative for headache(s), dizziness or Nosebleed/epistaxis Cardio Chest Pain: No Palpitations: No Edema: None Muscle aches with walking: None Resp Respiratory: Negative for SOB with activity, SOB at rest, SOB orthopnea SOB lying down, Cough or paroxysmal nocturnal dyspnea GI GI: Negative nausea, vomiting, heartburn or black,tarry stools : Negative for hematuria Musc Musc: Positive for joint pain and balance problems (Occasionally when he standing up); Negative for muscle aches/ myalgia or muscle weakness Skin Skin: Negative non-healing lesions, rash or unusual bruising Neuro Neuro: Negative for dizziness, near syncope, syncope, frequent falls, headache(s), weakness, blurry vision, double vision or lack of coordination Praveen Hematologic/Lymphatic: Negative for easy bleeding or easy bruising Endo Endo: Negative for fatigue, excessive sweating or increased thirst/drinking Psych Psych: Negative for anxiety or depression Allergy Allergy/Immunology: Negative for hives and Negative for rash Cardiology Exam Const Appearance: cooperative Head Head: normal to inspection Eyes General: appearance normal, both eyes and all related structures Chest Chest inspection: normal inspection of the chest and normal respiratory effort Cardio Rate: regular rate Heart sounds: S1 normal and S2 normal Neuro General: patient oriented x3 Skin Skin: no rashes or lesions noted Extremities Pulses: Normal: Right Posterior Tibial Pulse and Left Posterior Tibial Pulse Psych Psychological: normal affect Supplemental Info Supplemental Information Labs: LDL Cholesterol 54 mg/dL (0-130) HDL Cholesterol 37 mg/dL (40-) L Triglycerides 53 mg/dL (-199) VLDL Cholesterol 11 mg/dL (5-40) Diagnostics: Electrocardiogram Echocardiogram Pulmonary: No Data to Display Assessment and Plan Assessment and Plan (1) Atherosclerotic heart disease of [place] coronary artery without angina pectoris: Status: Acute Qualifiers: [place] vs. transplanted heart: [place] heart Qualified Code(s): I25.10 - Atherosclerotic heart disease of [place] coronary artery without angina pectoris Comment: 06/16/2012 PCI of ostial LAD with MELINDA [facility] Doing well. Continue present management (2) Presence of stent in coronary artery: Status: Acute Comment: 06/16/2012 PCI of ostial LAD with MELINDA and [facility] Plan: Continue present management (3) Non-rheumatic mitral regurgitation: Status: Acute Plan: Continue present management Plan Details Follow Up: 1 Year Coding Level of Care Code Off vis,est,level 3 Diagnoses Atherosclerotic heart disease of [place] coronary artery without angina pectoris I25.10 [place] vs. transplanted heart: [place] heart Presence of stent in coronary artery Z95.5 Non-rheumatic mitral regurgitation I34.0 Coding Level of Care Code Off vis,est,level 3 Diagnoses Atherosclerotic heart disease of [place] coronary artery without angina pectoris I25.10 [place] vs. transplanted heart: [place] heart Presence of stent in coronary artery Z95.5 Non-rheumatic mitral regurgitation I34.0 03/23/22 1309 <Electronically signed by Heather Burgos MD> Date Heather Burgos MD Cosigner Signature: Date (if applicable) CC: DO Isabelle Villarreal DO Work Phone: Start: 03-16-2022 End: 03-17-2022 Procedure Note: See Note; NOTES: [facility] [address] [place] [address] Carotid Duplex Ultrasound 03/16/22 0907 MR#: [id number] Acct: [id number] Name: OSEI SANTOSBebeto Monteiro Rep #: [id number] : 1935 86 From: Meir Mendiola MD Attending Dr: Dr. Isabelle Patiño DO Status: [facility]: Isabelle Patiño DO Date: 03/16/22 Location: [facility] Sex: M C Admitted: Reason For Study: Stenosis Rt. Velocities/BP Lt. Velocities/BP Prox CCA 81.2/18.6 cm/sec. Prox CCA 93.7/16.3 cm/sec. Mid CCA 93/17.3 cm/sec. Mid CCA 91.3/20 cm/sec. Dist CCA 83.9/21.3 cm/sec. Dist CCA 92.5/20 cm/sec. Prox ICA 61.7/16 cm/sec. Prox ICA 64.2/15.1 cm/sec. Mid ICA 77.3/23.9 cm/sec. Mid ICA 75.3/18.8 cm/sec. Dist ICA 74.7/21.3 cm/sec. Dist ICA 76.5/22.5 cm/sec. Rt. ICA/CCA = 0.92. Lt. ICA/CCA = 0.83. Prox ECA 86.5/8.2 cm/sec. Prox ECA 98.6/13.9 cm/sec. Rt. Vert. 37.8/9 cm/sec. Lt. Vert. 42.1/11.3 cm/sec. Right Extracranial There is homogeneous, smooth atherosclerotic plaque noted in the right common carotid artery. There is heterogeneous, irregular atherosclerotic plaque noted in the right internal carotid artery. The right internal carotid artery is very tortuous. There is heterogeneous, irregular atherosclerotic plaque noted in the right external carotid artery. Antegrade flow is noted in the right vertebral artery. Left Extracranial There is homogeneous, smooth atherosclerotic plaque noted in the left common carotid artery. There is heterogeneous, irregular atherosclerotic plaque noted in the left internal carotid artery. There is intimal thickening but no significant atherosclerotic plaque noted in the left external carotid artery. Antegrade flow is noted in the left vertebral artery. Procedure Carotid Duplex 07753. This is a Carotid Duplex examination using B-mode, color flow and specral Doppler. Exam performed in department. VL/Carotid Duplex Ultrasound Interpretation Summary Mild (<50%) stenosis right extracranial internal carotid. Mild (<50%) stenosis left extracranial internal carotid. Flow within the vertebral arteries is antegrade bilaterally. _ Ordering Physician: Isabelle Patiño Referring Physician: Isabelle Patiño Performed By: Earnestine Carbone RVT 03/17/22816 Date Meir Mendiola MD CC: Dr. Isabelle Patiño, DO Date Dictated: 03/16/22906 Date Transcribed: 03/17/22816 Hydrochloric Area Supervisor: Signed Isabelle Patiño DO Work Phone: Start: 03-10-2021 End: 03-10-2021 Comments: See Note; NOTES: [facility] [address] [place] [address] OFFICE VISIT Date of Service: 03/10/21 MR#: [id number] Acct: [id number] Name: SKYLER SANTOS Rep #: [id number] : 1935 Provider: Dr. Heather baeza MD Age/Sex: 85/M Location: [facility] Status: Signed HPI HPI History of Present Illness Details: 03/05/19: 83-year-old male with past medical history of coronary artery disease status post anterior ST elevation [place] in May 2012 treated with drug-eluting stent ostial LAD and Cutting Balloon atherectomy to mid LAD with residual stenoses that are being treated medically coming to see me for follow-up. He is doing very well from a cardiac standpoint. He denies any cardiac symptoms at this time. 03/04/2020: Patient is doing well from a cardiac standpoint. He denies any cardiac complaints at this time. 03/10/21: Patient is doing well from a cardiac standpoint. No cardiac complaints at this time. 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 Accompanied by: Allergies No Known Allergies Allergy (Verified 03/10/21 13:09) Medications aspirin 81 mg PO DAILY@0800 02/20/14 [History Confirmed 03/10/21] atorvastatin 80 mg tablet 80 mg PO QHS #30 tab 03/04/20 [Rx Confirmed 03/10/21] lisinopril 2.5 mg tablet 2.5 mg PO DAILY #30 tab 03/04/20 [Rx Confirmed 03/10/21] clopidogrel 75 mg tablet See Rx Instructions .ROUTE .COMPLEX #90 tab 01/26/21 [Rx Confirmed 03/10/21] metoprolol tartrate 25 mg tablet 12.5 mg PO BID #30 tab 03/04/21 [Rx Confirmed 03/10/21] nitroglycerin 0.4 mg sublingual tablet 0.4 mg SUBLINGUAL Q5-15M PRN #25 tab 03/10/21 [Rx Confirmed 03/10/21] PFSH Medical History Atherosclerotic heart disease of [place] coronary artery without angina pectoris Carotid stenosis COPD (chronic obstructive pulmonary disease) Coronary artery disease involving [place] coronary artery Diverticulosis History of kidney stones History of prostate cancer HLD (hyperlipidemia) Mitral regurgitation Non-rheumatic mitral regurgitation Presence of stent in coronary artery ( 06/16/12) Type 2 diabetes mellitus without complication Surgical History H/O coronary angioplasty Presence of coronary angioplasty implant and graft ( 06/16/12) Family History Mother Diabetes Brother Diabetes Myocardial infarction Father , Before age 55 Myocardial infarction CAD (coronary artery disease) Social History Smoking Status: Current every day smoker alcohol intake: never substance use type: does not use caffeine: Yes ROS Const Const: Negative for fatigue, weakness, frequent falls, excessive sweating, weight gain or weight loss Eyes Eyes: Negative for transient loss of vision, blurry vision or change in vision ENT ENT: Negative for dizziness or balance problems Cardio Chest Pain: No Palpitations: No Edema: None Muscle aches with walking: None Resp Respiratory: Positive for Cough (smokers cough); Negative for SOB with activity or SOB at rest GI GI: Negative vomiting or vomiting blood/hematemesis : Negative for hematuria Musc Musc: Negative for muscle aches/ myalgia, muscle weakness, joint pain or balance problems Skin Skin: Negative non-healing lesions or rash Neuro Neuro: Negative for dizziness, lightheadedness, orthostatic symptoms, frequent falls, weakness or blurry vision [place]veen Hematologic/Lymphatic: Negative for easy bleeding Endo Endo: Negative for fatigue or excessive sweating Psych Psych: Negative for anxiety or depression Allergy Allergy/Immunology: Negative for hives and Negative for rash Cardiology Exam Const Appearance: cooperative Nutritional Appearance: well nourished Head Head: normal to inspection and normocephalic Ears: hearing grossly normal bilaterally Nose: external nose normal Face and Sinus: face symmetric Mouth: moist mucous membranes Teeth and gingiva: fair dentition Eyes General: appearance normal, both eyes and all related structures Eyelids: eyelids normal Conjunctivae: conjunctivae normal Neck Neck: trachea midline and no JVD Chest Chest inspection: symmetric chest movement; Negative pursed lip breathing Auscultation: Bilateral: Clear to Auscultation Cardio Rate: regular rate Rhythm: regular rhythm Heart sounds: S1 normal and S2 normal No Murmurs GI GI: normal to inspection Neuro General: patient alert, patient awake and patient oriented x3 Gait: Negative ataxic Skin Skin: no rashes or lesions noted; Negative atrophy or jaundice Extremities Pulses: Normal: Right Posterior Tibial Pulse and Left Posterior Tibial Pulse Lower Extremity Edema: None: Bilateral Musculoskel Musculoskeletal: No joint tenderness Psych Psychological: normal affect Assessment and Plan Assessment and Plan (1) Atherosclerotic heart disease of [place] coronary artery without angina pectoris: Status: Acute Qualifiers: [place] vs. transplanted heart: [place] heart Qualified Code(s): I25.10 - Atherosclerotic heart disease of [place] coronary artery without angina pectoris Comment: 06/16/2012 PCI of ostial LAD with MELINDA and cutting balloon arthrectomy to mid LAD. [facility] Dr. Burgos. Plan - Dr. Heather Burgos MD: Doing well. Continue present management (2) Presence of stent in coronary artery: Status: Acute Comment: 06/16/2012 PCI of ostial LAD with MELINDA and cutting balloon arthrectomy to mid LAD. [facility] Dr. Burgos. Plan - Dr. Heather Burgos MD: Doing well. Continue present management (3) HLD (hyperlipidemia): Status: Chronic Qualifiers: Hyperlipidemia type: unspecified Qualified Code(s): E78.5 - Hyperlipidemia, unspecified Plan - Dr. Heather Burgos MD: Doing well. Continue present management (4) Non-rheumatic mitral regurgitation: Status: Acute Plan - Dr. Heather Burgos MD: Doing well. Continue present management Plan Details Other Medications: New: nitroglycerin (Nitrostat) 0.4 mg sublingual Q5-15M PRN 25 tabs 3RF chest pain Follow Up: 1 Year Coding Level of Care Code Off vis,est,level 4 Diagnoses Atherosclerotic heart disease of [place] coronary artery without angina pectoris I25.10 [place] vs. transplanted heart: [place] heart Presence of stent in coronary artery Z95.5 HLD (hyperlipidemia) E78.5 Hyperlipidemia type: unspecified Non-rheumatic mitral regurgitation I34.0 Coding Level of Care Code Off vis,est,level 4 Diagnoses Atherosclerotic heart disease of [place] coronary artery without angina pectoris I25.10 [place] vs. transplanted heart: [place] heart Presence of stent in coronary artery Z95.5 HLD (hyperlipidemia) E78.5 Hyperlipidemia type: unspecified Non-rheumatic mitral regurgitation I34.0 Supplemental Info Supplemental Information Labs: LDL Cholesterol 54 mg/dL (0-130) HDL Cholesterol 37 mg/dL (40-) L Triglycerides 53 mg/dL (-199) VLDL Cholesterol 11 mg/dL (5-40) Diagnostics: Electrocardiogram Echocardiogram Pulmonary: No Data to Display 03/10/21 1403 <Electronically signed by Heather Burgos MD> Date Heather Burgos MD Cosigner Signature: Date (if applicable) CC: Dr. Isabelle Patiño, DO Isabelle Patiño DO Work Phone: Start: 03-04-2020 End: 03-04-2020 Virtual Office Visit Comments: See Note; NOTES: [facility] [address] [place] [address] OFFICE VISIT Date of Service: 03/04/20 MR#: [id number] Acct: [id number] Patient: SKYLER SANTOS Rep #: [id number] : 1935 Provider: Dr. Heather baeza MD Age/Sex: 84/M Location: [facility] Status: Signed Intake Vital Signs 03/04/20 Weight: 158 lb 03/04/20 BP 122/70 H 03/04/20 Pulse 64 03/04/20 Comment Readings from OV with PCP 02/25/20 Intake Visit Reasons: PHONE 1 Y FU Is patient in pain?: No Allergies No Known Allergies Allergy (Verified 03/04/20 09:46) Medications Aspirin E.C. [Ecotrin] 81 mg PO DAILY@0800 02/20/14 [History Confirmed 03/04/20] nitroglycerin 0.4 mg sublingual tablet 0.4 mg SUBLINGUAL Q5-15M PRN 02/27/19 [History Confirmed 03/04/20] atorvastatin 80 mg tablet 80 mg PO QHS #30 tab 03/04/20 [Rx Confirmed 03/04/20] clopidogrel 75 mg tablet 75 mg PO DAILY #30 tab 03/04/20 [Rx Confirmed 03/04/20] lisinopril 2.5 mg tablet 2.5 mg PO DAILY #30 tab 03/04/20 [Rx Confirmed 03/04/20] metoprolol tartrate 25 mg tablet 12.5 mg PO BID #30 tab 03/04/20 [Rx Confirmed 03/04/20] [facility] Medical History Carotid stenosis (Chronic) Mitral regurgitation (Chronic) HLD (hyperlipidemia) (Chronic) Coronary artery disease involving [place] coronary artery (Chronic) COPD (chronic obstructive pulmonary disease) (Chronic) Diverticulosis (Chronic) History of kidney stones (Chronic) Type 2 diabetes mellitus without complication (Chronic) History of prostate cancer (Resolved) Surgical History H/O coronary angioplasty (Resolved) Family History Mother Diabetes Brother Diabetes Myocardial infarction Father , Before age 55 Myocardial infarction CAD (coronary artery disease) Social History (Updated 03/04/20 @ 11:[address] Heather Burgos MD) Smoking Status: Current every day smoker alcohol intake: never substance use type: does not use caffeine: Yes HPI HPI Details: Patient was informed that this visit will be billed to patient. This visit was conducted during COVID- pandemic. 03/05/19: 83-year-old male with past medical history of coronary artery disease status post anterior ST elevation [place] in May 2012 treated with drug-eluting stent ostial LAD and Cutting Balloon atherectomy to mid LAD with residual stenoses that are being treated medically coming to see me for follow-up. He is doing very well from a cardiac standpoint. He denies any cardiac symptoms at this time. 03/04/2020: Patient is doing well from a cardiac standpoint. He denies any cardiac complaints at this time. ROS Const Constitutional: No fatigue, frequent falls, headache(s) or weakness Eyes Eyes: No blurry vision, change in vision, double vision, discharge, dry eyes, bulging eyes, floaters, visual disturbances, eye pain, light sensitivity, spots in vision, tunnel vision or other ENT ENT: No nosebleed/epistaxis or headache(s) Resp Respiratory: No cough or shortness of breath Cardio Cardiology: No chest pain at rest, chest pain with exertion, shortness of breath, generalized swelling, lightheadedness or palpitations Musc Musculoskeletal: Positive for joint pain (arthritis) and muscle weakness (legs after working) Neuro Neurology: No dizziness, weakness, frequent falls, headache(s) or visual disturbances Endo Endocrine: No fatigue Exam Const Other: This is a phone visit and physical examination was not performed Musc Musculoskeletal: Yes muscle weakness (legs after working) Details: Details:: Exam was limited due to phone visit with no video. Quality Reporting Medication Reconciliation ([facility] 68) aspirin 81 mg PO DAILY@0800 atorvastatin 80 mg PO QHS clopidogrel 75 mg PO DAILY lisinopril 2.5 mg PO DAILY metoprolol tartrate 12.5 mg (1/2 x 25 mg) PO BID nitroglycerin (Nitrostat) 0.4 mg sublingual Q5-15M PRN BMI Screening (CMS 69) Body Mass Index (BMI): 26.9 Tobacco Screening (CMS 138) Smoking Status: Current every day smoker Assessment Plan 1. Coronary artery disease involving [place] coronary artery of [place] heart without angina pectoris I25.10 Plan Patient is doing well. Continue current medications. 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 2. Hyperlipidemia, unspecified hyperlipidemia type E78.5 Plan Continue present management. 3. H/O coronary angioplasty Z98.61 06/16/2012 PCI of ostial LAD with MELINDA and cutting balloon arthrectomy to mid LAD. [facility] Dr. Burgos. Plan Continue present management. 4. Non-rheumatic mitral regurgitation I34.0 Plan Mild by echo in January 2018. Will monitor. Plan Detail Other Medications New: metoprolol tartrate 12.5 mg (1/2 x 25 mg) PO BID 30 tabs 11RF Refilled: lisinopril 2.5 mg PO DAILY 30 tabs 11RF atorvastatin 80 mg PO QHS 30 tabs 11RF clopidogrel 75 mg PO DAILY 30 tabs 11RF Additional Comments 11 minutes spent in this medical discussion/patient encounter Follow Up 1 Year Coding Level of Care Code Level 2 Telephone Diagnoses Coronary artery disease involving [place] coronary artery of [place] heart without angina pectoris I25.10 ?[place] vs. transplanted heart: [place] heart ?Associated angina: without angina Hyperlipidemia, unspecified hyperlipidemia type E78.5 ?Hyperlipidemia type: unspecified H/O coronary angioplasty Z98.61 Non-rheumatic mitral regurgitation I34.0 ?Cardiac valve disease etiology: nonrheumatic 03/04/20 1157 <Electronically signed by Heather Burgos MD> Date Heather Burgos MD Cosigner Signature: Date (if applicable) CC: Dr. Isabelle Patiño, DO Isabelle Patiño Start: 03-06-2019 End: 03-06-2019 Cardiology Visit Report Comments: See Note; NOTES: [facility] [address] [place] [address] OFFICE VISIT Date of Service: 03/05/19 MR#: [id number] Acct: [id number] Name: SKYLER SANTOS Rep #: [id number] : 1935 Provider: Janina Burgos MD Age/Sex: 83/M Location: [facility] Status: Signed HPI HPI History of Present Illness Details: 83-year-old male with past medical history of coronary artery disease status post anterior ST elevation [place] in May 2012 treated with drug-eluting stent ostial LAD and Cutting Balloon atherectomy to mid LAD with residual stenoses that are being treated medically coming to see me for follow-up. He is doing very well from a cardiac standpoint. 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 [Ecotrin] 81 mg PO DAILY@0800 02/20/14 [History Confirmed 03/05/19] Atorvastatin Calcium [Lipitor] 80 mg PO QHS 02/20/14 [History Confirmed 03/05/19] Clopidogrel Bisulfate [Plavix] 75 mg PO DAILY 02/20/14 [History Confirmed 03/05/19] Lisinopril [Zestril] 2.5 mg PO DAILY 02/20/14 [History Confirmed 03/05/19] Metoprolol Tartrate [Lopressor (Beta Travis)] 12.5 mg PO BID 02/20/14 [History Confirmed 03/05/19] Tiotropium [place] [Spiriva 18 MCG] 1 puff INHALATION DAILY 02/20/14 [History Confirmed 03/05/19] bupropion HCl SR 150 mg tablet,12 hr sustained-release 150 mg PO BID 02/27/19 [History Confirmed 02/27/19] multivitamin tablet 1 tab PO DAILY 02/27/19 [History Confirmed 02/27/19] nitroglycerin 0.4 mg sublingual tablet 0.4 mg SUBLINGUAL Q5-15M PRN 02/27/19 [History Confirmed 02/27/19] PFSH Medical History Carotid stenosis (Chronic) Mitral regurgitation (Chronic) HLD (hyperlipidemia) (Chronic) Coronary artery disease involving [place] coronary artery (Chronic) Surgical History H/O coronary angioplasty (Resolved) Family History Mother Diabetes Brother Diabetes Myocardial infarction Father Myocardial infarction Social History Smoking Status: Current every day smoker alcohol intake: never substance use type: does not use caffeine: Yes ROS Const Const: Negative for fatigue, weakness, headache(s), frequent falls, night sweats, daytime sleepiness or excessive sweating Eyes Eyes: Negative for blind spots, loss of peripheral vision, transient loss of vision, blurry vision or double vision ENT ENT: Negative for headache(s), dizziness, Nosebleed/epistaxis, balance problems, lip swelling or tongue swelling Cardio Chest Pain: No Palpitations: No Edema: None Muscle aches with walking: None Resp Respiratory: Negative for SOB with activity, SOB at rest, SOB orthopnea\SOB lying down, Cough or paroxysmal nocturnal dyspnea GI GI: Negative nausea, vomiting, heartburn, bright, red blood in stools or black,tarry stools : Negative for hematuria Musc Musc: Negative for muscle aches/ myalgia, muscle weakness, joint pain or balance problems Skin Skin: Negative non-healing lesions, rash or unusual bruising Neuro Neuro: Negative for dizziness, lightheadedness, orthostatic symptoms, frequent falls, headache(s), weakness, blurry vision, double vision or lack of coordination Praveen Hematologic/Lymphatic: Negative for easy bleeding or easy bruising Endo Endo: Negative for fatigue, cold intolerance, heat intolerance, excessive sweating, increased thirst/drinking or hair loss Psych Psych: Negative for anxiety or depression Allergy Allergy/Immunology: Negative for throat swelling, Negative for tongue swelling, Negative for hives, Negative for rash, Negative for lip swelling Cardiology Exam Const Appearance: cooperative; negative acute distress Nutritional Appearance: well nourished Head Head: normocephalic and atraumatic Ears: hearing grossly normal bilaterally Nose: external nose normal Face and Sinus: face symmetric Mouth: moist mucous membranes Teeth and gingiva: fair dentition Eyes General: appearance normal, both eyes and all related structures Eyelids: eyelids normal Conjunctivae: conjunctivae normal Neck Neck: trachea midline and no JVD Chest Chest inspection: symmetric chest movement; negative pursed lip breathing Auscultation: Bilateral: Clear to Auscultation Cardio Rate: regular rate Rhythm: regular rhythm Heart sounds: S1 normal and S2 normal No Murmurs GI GI: normal to inspection Neuro General: alert, awake and oriented x3 Gait: Negative ataxic Skin Skin: no rashes or lesions noted; negative atrophy or jaundice Extremities Pulses: Normal: Right Posterior Tibial Pulse, Left Posterior Tibial Pulse Lower Extremity Edema: None: Bilateral Musculoskel Musculoskeletal: No joint tenderness Psych Psychological: normal affect Assessment AND Plan 1. Coronary artery disease involving [place] coronary artery of [place] heart without angina pectoris I25.10 Plan Doing very well at this time. Continue current medications. 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 Orders Orders: 2. Bilateral carotid artery stenosis I65.23 Plan Continue current medications. 3. Non-rheumatic mitral regurgitation I34.0 Plan Continue current management. Plan Detail Other Orders Orders: Coding Level of Care Code Off vis,est,level 4 Diagnoses Coronary artery disease involving [place] coronary artery of [place] heart without angina pectoris I25.10 [place] vs. transplanted heart: [place] heart Associated angina: without angina Bilateral carotid artery stenosis I65.23 Laterality: bilateral Non-rheumatic mitral regurgitation I34.0 Cardiac valve disease etiology: nonrheumatic Coding Level of Care Code Off vis,est,level 4 Diagnoses Coronary artery disease involving [place] coronary artery of [place] heart without angina pectoris I25.10 [place] vs. transplanted heart: [place] heart Associated angina: without angina Bilateral carotid artery stenosis I65.23 Laterality: bilateral Non-rheumatic mitral regurgitation I34.0 Cardiac valve disease etiology: nonrheumatic Supplemental Info Supplemental Information May 2012: Cardiac cath revealed 100% occlusion of the LAD that was treated with drug-eluting stent in the ostial portion and Cutting Balloon angioplasty in the midportion. There is residual 95% stenosis in the proximal RPDA which is being treated medically. January 2018: Carotid ultrasound revealed less than 50% stenosis in the left and right extracranial internal carotid arteries. January 2018: Echocardiogram revealed preserved LV systolic function. Stage III diastolic dysfunction. Mild mitral insufficiency. Labs LDL Cholesterol 54 mg/dL (0-130) 04/27/17 HDL Cholesterol 37 mg/dL (40-) L 04/27/17 Triglycerides 53 mg/dL (-199) 04/27/17 VLDL Cholesterol 11 mg/dL (5-40) 04/27/17 Diagnostics Electrocardiogram 03/05/19 Echocardiogram 01/30/18 03/06/19 1549 <Electronically signed by Heather Burgos MD> Date Heather Burgos MD Cosigner Signature: Date (if applicable) CC: Isabelle Olmedo Start: 03-05-2019 End: 03-22-2019 12 Lead EKG performed by [facility] Comments: See Note; NOTES: [address] [address] 12 Lead EKG performed by [facility] 03/05/19 1259 MR#: [id number] Acct: [id number] Name: SKYLER SANTOS Rep #: [id number] : 1935 83 From: Heather Burgos MD Attending Dr: Janina Burgos MD Status: DEP AMB Ordering Dr: Heather Burgos MD Date: 03/05/19 Location: [facility] Sex: M C Admitted: [facility]/12 Lead EKG performed by [facility] ECG Report Interpretation Sinus Rhythm Low voltage -possible pulmonary disease. ABNORMAL Electronically signed on 03/22/2019 at 12:47 by Dane Landis Software Version [id number] 03/22/191250 Date Heather Burgos MD CC: Isabelle Patiño DO Date Dictated: 03/05/191258 Date Transcribed: 03/05/191258 Hydrochloric Area Supervisor: NN Signed Isabelle Patiño Work Phone: Start: 03-13-2018 End: 03-14-[address] Lung Screening Comments: See Note; NOTES: [facility] Imaging Services [address] [place] [address] Lung Screening MR#: [id number] Acct: [id number] Name: SKYLER SANTOS Rep #: [id number] : 1935 M 82 From: Alfredo Massey DO PCP: Isabelle Patiño DO Status: REG CLI Study: Low Dose CT Lung Screening Date of Exam: 03/13/18 Exam# [id number] Ordering Dr: Yeni Christie DO STUDY: LOW DOSE CT LUNG CANCER SCREENING REASON FOR EXAM: Male, 82 years old. 70 pack-year smoking history. RADIATION DOSAGE (If Supplied By Facility): CTDIvol = ( 3.02 ) mGy, DLP = ( 99.68 ) mGycm TECHNIQUE: No contrast was administered. Low dose technique was utilized (average mAS-38 and kVp 120). 1.25 mm axial source images with a slice interval of 1.25-mm were reconstructed in lung windows. 2.5 mm axial source images with a slice interval of 2.5-mm were reconstructed in lung windows. 5.0 mm axial source images with a slice interval of 5.0-mm were reconstructed in soft tissue windows. Nodule measured using lung windows on PACS and/or independent workstation with automated measurement of minimum and maximum diameter. Nodule measurement reported as average diameter rounded to the nearest whole number. Growth is defined as an increase ins size of greater than 1.5 mm. COMPARISON: Chest, September 25, 2013. NODULES: Nodule #: 1 Density: Solid Lung location: Right middle lobe: 0.3 cm from pleura Location in series: Series Number: 2 Image: 126 Size - D1 x D2 mm: 3 x 4 mm: 4 mm average diameter Margin: Smooth Shape: Oval Calcification: Yes Fat: No Temporal comparison: None Nodule #: 2 Density: Solid Lung location: Right lower lobe: Pleural-based Location in series: Series Number: 2 Image: 124 Size - D1 x D2 mm: 2 x 2 mm: 2 mm average diameter Margin: Smooth Shape: Round Calcification: No Fat: No Temporal comparison: None Total lung nodules (excluding granulomas): 1 Emphysema: There is mild emphysematous changes throughout both lungs. Endobronchial lesion: None Aorta: There is atherosclerotic tortuosity of the thoracic aorta without aneurysm. Coronary arteries: There is extensive coronary artery calcifications. Heart: The heart is normal in size. There are calcifications at the root of the aorta and along the mitral valve plane. Pulmonary artery: Normal. Mediastinal nodes: There is nonspecific mediastinal lymphadenopathy. The largest node, in the paratracheal region, measures 1.3 x 0.7 x 1.4 cm. There is a calcified subcarinal lymph node. Calcified nodes are also seen in the left hilum. Other chest and abdominal findings: There are degenerative changes of the thoracic spine. Calcified granulomata are seen within the spleen. CT/Low Dose CT Lung Screening IMPRESSION: Lung-RADS category 2 - Continue annual screening with LDCT in 12 months. IMPORTANT NOTES FOR USE: ACR Lung-RADS Version 1.0 Assessment Categories Release Date: January 21, 2014 Category: Coded 0-4 bases on nodule(s) with highest degree of suspicion. Negative screen is defined as categories 1 and 2; a positive screen is defined as categories 3 and 4. Category 3 and 4A nodules that are unchanged on interval CT should be coded as category 2, and individuals returned to screening in 12 months. Category 4X: Category 3 or 4 nodules with additional imaging findings that increase the suspicion of lung cancer, such as spiculation, GGN that doubles in size in 1 year, enlarged lymph notes, etc. Category Modifiers: S (significant finding unrelated to lung cancer) and C (prior history of treated lung cancer) may be added to the 0-4 Lung-RADS Electronically Signed: Alfredo Massey DO at 11:21 EDT Tel [phone], Service support , CC: Yeni Christie DO; Isabelle Patiño DO Hydrochloric Area Supervisor: Signed Yeni Christie Work Phone: Start: 02-01-2018 End: 02-01-2018 Carotid Duplex Ultrasound Comments: See Note; NOTES: [facility] Cardiovascular Services [address] [place] [address] Carotid Duplex Ultrasound 01/30/18 1012 MR#: [id number] Acct: [id number] Name: SKYLER SANTOS Rep #: [id number] : 1935 82 From: Meir Mendiola MD Attending Dr: JANINA BURGOS Status: REG CLI Ordering Dr: JANINA BURGOS Date: 01/30/18 Location: [facility] Sex: M C Admitted: Reason For Study: Carotid stenosis Rt. Velocities/BP Lt. Velocities/BP Prox CCA 79.7/17.0 cm/sec. Prox CCA 95.6/19.3 cm/sec. Mid CCA 92.6/21.7 cm/sec. Mid CCA 96.2/24.0 cm/sec. Dist CCA 99.7/26.4 cm/sec. Dist CCA 89.1/25.2 cm/sec. Prox ICA 78.0/25.8 cm/sec. Prox ICA 73.3/25.8 cm/sec. Mid ICA 70.9/23.6 cm/sec. Mid ICA 93.2/29.9 cm/sec. Dist ICA 56.4/16.3 cm/sec. Dist ICA 81.9/27.1 cm/sec. Rt. ICA/CCA = .84. Lt. ICA/CCA = .97. Prox ECA 108.0/15.2 cm/sec. Prox ECA 90.3/15.8 cm/sec. Rt. Vert. 40.6/13.8 cm/sec. Lt. Vert. 37.1/10.5 cm/sec. Right Extracranial There is intimal thickening but no significant atherosclerotic plaque noted in the right common carotid artery. There is heterogeneous, irregular atherosclerotic plaque noted in the right internal carotid artery. The right internal carotid artery is very tortuous. There is no significant atherosclerotic plaque noted in the right external carotid artery. Antegrade flow is noted in the right vertebral artery. Left Extracranial There is intimal thickening but no significant atherosclerotic plaque noted in the left common carotid artery. There is heterogeneous, irregular atherosclerotic plaque noted in the left internal carotid artery. The left internal carotid artery is very tortuous. There is heterogeneous, irregular atherosclerotic plaque noted in the left external carotid artery. Antegrade flow is noted in the left vertebral artery. Procedure Carotid Duplex [id number]. Exam performed in department. Interpretation Summary Mild (<50%) stenosis right extracranial internal carotid. Mild (<50%) stenosis left extracranial internal carotid. Flow within the vertebral arteries is antegrade bilaterally. Ordering Physician: Janina Burgos Referring Physician: Isabelle Patiño Performed By: Kandy Chiu RVT 02/01/18705 Date Meir Mendiola MD CC: Isabelle Patiño DO; JANINA BURGOS; OUT OF TOWN DOCTOR Date Dictated: 01/30/18 1012 Date Transcribed: 02/01/18705 Hydrochloric Area Supervisor: Signed Isabelle Patiño Start: 01-30-2018 End: 01-30-2018 Echocardiogram Complete Comments: See Note; NOTES: [facility] Cardiovascular Services [address] [place] [address] Echo Complete 01/30/18 1057 MR#: [id number] Acct: [id number] Name: SKYLER SANTOS Rep #: [id number] : 1935 82 From: Bert Garcia MD Attending Dr: JANINA BURGOS Status: REG CLI Ordering Dr: JANINA BURGOS Date: 01/30/18 Location: [facility] Sex: M C Admitted: Reason For Study: MV regurgitation Procedure This was a 2D Doppler, Color Flow transthoracic echocardiogram. Exam performed in department. Left Ventricle Normal LV size. Left ventricular systolic function is normal. Transmitral diastolic flow velocities suggest severe (stage 3) diastolic dysfunction. The estimated ejection fraction is 60 %. No regional wall motion abnormalities noted. Right Ventricle Normal RV size. Normal systolic function. Atria The left atrium is mildly enlarged. Normal right atrium. Mitral Valve There is mild to moderate mitral annular calcification. Mild (1+) eccentric mitral valve insufficiency. Tricuspid Valve Normal tricuspid valve. Mild (1+) tricuspid valve insufficiency. Pulmonary artery systolic pressure is 40 mmHg. Aortic Valve Trisinus/trileaflet aortic valve. Mild focal aortic valve calcification. Pulmonic Valve Normal pulmonic valve. Great Vessels Normal aortic root. The pulmonary artery is normal size. Normal inferior vena cava. Pericardium/Pleural No pericardial effusion. MMode/2D Measurements AND Calculations LVIDd: 4.1 cm IVSd: 1.1 cm Ao root diam: 3.0 cm LVIDs: 2.6 cm LVPWd: 1.3 cm LA dimension: 4.0 cm RVDd: 2.7 cm FS: 35.7 % __ LAV(MOD-bp): 74.8 ml LA A4 area: 23.5 cm2 RA A4 area: 14.2 cm2 LAV(MOD-bp) Indexed: 41.6 ml/m2 LAV(MOD-sp2): 71.3 ml LAV(MOD-sp4): 77.5 ml Doppler Measurements AND Calculations MV E max jerardo: 144.3 cm/sec Lat Peak E' Jerardo: 9.2 cm/sec Med Peak E' Jerardo: 8.5 cm/sec MV A max jerardo: 62.1 cm/sec E/E' lat: 15.8 E/E' med: 16.9 MV E/A: 2.3 __ Ao V2 max: 155.7 cm/sec LV V1 max: 114.8 cm/sec PA V2 max: 97.4 cm/sec Ao max P.7 mmHg LV V1 max P.3 mmHg __ PI end-d jerardo: 101.1 cm/sec TR max jerardo: 297.2 cm/sec TR max P.5 mmHg Interpretation Summary Normal LV size. Left ventricular systolic function is normal. Transmitral diastolic flow velocities suggest severe (stage 3) diastolic dysfunction The estimated ejection fraction is 60 %. Mild (1+) eccentric mitral valve insufficiency. Mild focal aortic valve calcification. Ordering Physician: OTCayetano Referring Physician: Isabelle Patiño Performed By: Ghanshyam, Calista, RDCS, RVT 01/30/181919 Date Bert Garcia MD CC: Isabelle Patiño DO; [facility]; OUT OF TOWN DOCTOR Date Dictated: 01/30/18 1057 Date Transcribed: 01/30/181919 Hydrochloric Area Supervisor: Signed Isabelle Kaylyn Start: 11-12-2015 End: 11-12-2015 Ecg routine ecg w/least 12 lds w/i&r [MEASUREMENTS ANALYSIS] Date of Test: 11/12/2015 12:42:52; Heart Rate: 62; LA Interval: 156; QRS: 76; QT Interval: 382; Corrected QT Interval (QTc): 385; P Wave Seltzer: 63; QRS Wave Seltzer: 37; T Wave Seltzer: 39; Blood Pressure: 122/78 [ECG DIAGNOSTIC STATEMENTS] Date of Test: 11/12/2015 12:42:52; Summary: Sinus Rhythm Low voltage -possible pulmonary disease. ABNORMAL Isabelle Patiño Work Phone: Start: 07-17-2015 End: 07-17-2015 Spmtry w/vc expiratory karin w/wo mxml vol vntj _ Nurse Visit Start: 01-19-2015 End: 01-19-2015 Carotid Duplex Ultrasound Comments: See Note; NOTES: [facility] Cardiovascular Services [address] [place] [address] Carotid Duplex Ultrasound 01/17/15 1515 MR#: [id number] Acct: [id number] Name: SKYLER SANTOS Rep #: [id number] : 1935 79 From: Meir Mendiola MD Attending Dr: Isabelle Patiño DO Status: REG CLI Ordering Dr: Isabelle Patiño DO Date: 01/17/15 Location: [facility] Sex: M C Admitted: Rt. Velocities/BP Lt. Velocities/BP Prox CCA 90/19 cm/sec. Prox CCA 99/28 cm /sec. Mid CCA 90/22 cm/sec. Mid CCA 98/28 cm/ sec. Dist CCA 106/26 cm/sec. Dist CCA 83/25 cm /sec. Prox ICA 81/26 cm/sec. Prox ICA 87/38 cm /sec. Mid ICA 43/16 cm/sec. Mid ICA 64/26 cm/ sec. Dist ICA 45/19 cm/sec. Dist ICA 40/17 cm /sec. Rt. ICA/CCA = .9. Lt. ICA/CCA = .9. Prox ECA 70/14 cm/sec. Prox ECA 110/24 cm/sec. Rt. Vert. 43/18 cm/sec. Lt. Vert. 56/14 cm/sec. Right Extracranial There is homogeneous, smooth atherosclerotic plaque noted in the right common carotid artery. There is heterogeneous, irregular atherosclerotic plaque noted in the right internal carotid artery. The right internal carotid artery is very tortuous. There is homogeneous, smooth atherosclerotic plaque noted in the right external carotid artery. Antegrade flow is noted in the right vertebral artery. There is heterogeneous, smooth atherosclerotic plaque noted in the right bulb. Left Extracranial There is heterogeneous, irregular atherosclerotic plaque noted in the left common carotid artery. There is homogeneous, smooth atherosclerotic plaque noted in the left common carotid artery. There is heterogeneous, irregular atherosclerotic plaque noted in the left internal carotid artery. The left internal carotid artery is very tortuous. There is heterogeneous, irregular atherosclerotic plaque noted in the left external carotid artery. Antegrade flow is noted in the left vertebral artery. There is heterogeneous, irregular atherosclerotic plaque noted in the left bulb. Procedure Carotid Duplex [id number]. Exam performed in department. Interpretation Summary Mild (<50%) stenosis right extracranial internal carotid. Mild (<50%) stenosis left extracranial internal carotid. Flow within the vertebral arteries is antegrade bilaterally. _ Ordering Physician: Isabelle Patiño Performed By: Rosie Sepulveda RDCS 01/19/152104 Date Meir Mendiola MD CC: Isabelle Tellezon Date Dictated: 01/17/15 1515 Date Transcribed: 01/19/152104 Hydrochloric Area Supervisor: Signed Isabelle Patiño Work Phone: Start: 06-19-2014 End: 06-19-2014 Spmtry w/vc expiratory karin w/wo mxml vol vntj _ Isabelle Patiño Work Phone: Start: 02-21-2014 End: 02-21-2014 Emergency Department Summary Comments: See Note; NOTES: [facility] Medical Records Department [address] [place] [address] Emergency Department Summary MR#: [id number] Acct: [id number] Name: SKYLER SANTOS Rep #: [id number] : 1935 78 From: Landen Pizarro MD PCP: Isabelle Patiño DO Status: DEP ER DATE OF SERVICE: 02/20/2014 METHOD OF ARRIVAL: Private car. CHIEF COMPLAINT: Laceration, left index and long finger. DATE OF SERVICE: February 20, 2014. PRIMARY CARE: Isabelle Patiño. CHO HISTORY: A 78-year-old male with history of hypertension, prior [place] with stents, COPD, prostate cancer. The patient comes in with laceration of left index and long finger. This occurred today about 12:30 p.m., basically cut with a chainsaw. He is right- handed. Tetanus is unknown. Denies any other complaints. PHYSICAL EXAMINATION: VITAL SIGNS: Stable. Afebrile. EXTREMITIES: Cho physical exam, left hand, the patient has a skin avulsion to the distal tip of the third finger. There is no bone exposure, no bony tenderness, no nail involvement. He has abrasion to the index finger, but no laceration that requires suture repair. He is neurovascularly intact with again no bony tenderness throughout. Remainder of the exam unremarkable. EMERGENCY DEPARTMENT COURSE: The patient received a tetanus booster. As far as this time, I do not believe any x-ray is indicated. There are no signs of infection. He will be given a tetanus updated. He will be encouraged to watch for infection and return if problems. CLINICAL IMPRESSION: 1. Skin avulsion, left third finger. 2. Abrasion, left second finger. DISPOSITION: Home. MD Femi Morris C: Isabelle Patiño DO T: NTS JOB: [id number] 02/21/14 1507 <Electronically signed by Landen Pizarro MD> Date Landen Pizarro MD CC: Isabelle Patiño DO Date Dictated: 02/20/142112 Date Transcribed: 02/20/142112 Hydrochloric Area Supervisor: Yung Christie Work Phone: Start: 02-20-2014 End: 02-20-2014 Discharge Instruction Comments: See Note; NOTES: [facility] Medical Records Department [address] [place] [address] Discharge Instruction 02/20/142110 MR#: [id number] Acct: [id number] Name: SKYLER SANTOS Rep #: [id number] : 1935 78 From: Landen Pizarro MD PCP: Isabelle Patiño DO Status: PRE ER ED Disposition - Plan for ED Patient: Disposition: Home Chief Complaint: Laceration Instructions: LACERATION, Small/superficial, Not sutured, Skin Avulsion Referrals: Isabelle Patiño DO [Primary Care Provider] - 5-7 Days Additional Instructions: follow up with Dr Patiño. watch for infection. return with problems What to do if you have Problems For any increased pain, shortness of breath, bleeding, nausea or vomiting, chest pain, or any unexpected problems, contact your doctor. Call [facility] ) or report to the closest Emergency Room. Call 911 if necessary. 02/20/142112 <Electronically signed by Landen Pizarro MD> Date Landen Pizarro MD CC: Isabelle Patiño DO [employer]eni [employer] Work Phone: Start: 01-04-2014 End: 01-04-2014 Spmtry w/vc expiratory karin w/wo mxml vol vntj _ Isabelle Patiño Work Phone: Comment on above: good no chg in rx Start: 09-25-2013 End: 09-26-2013 Chest PA and Lateral Comments: See Note; NOTES: [facility] Imaging Services [address] [place] [address] Radiology Report MR#: [id number] Acct: [id number] Name: SKYLER SANTOS Rep #: [id number] : 1935 M 78 From: Alfredo Massey DO PCP: Isabelle Patiño DO Status: REG CLI Study: Chest PA and Lateral Date of Exam: 09/25/13 Exam# [id number] Ordering Dr: Isabelle Patiño DO STUDY: X-RAY CHEST REASON FOR EXAM: Male, 78 years old. Cough. COPD. TECHNIQUE: PA and lateral views of the chest. COMPARISON: June 16, 2012. FINDINGS: The lungs are hyperexpanded but without acute infiltrate or mass. There is no demonstrated pleural abnormality. Normal size heart. Normal mediastinum and guille. Normal visualized pulmonary arteries. There is atherosclerotic tortuosity of the aortic arch and descending thoracic aorta. There are diffuse degenerative changes of the visualized thoracic spine. There is degenerative osteoarthritis of the bilateral shoulders. There is no demonstrated abnormality of the visualized soft tissue structures of the upper abdomen. IMPRESSION: Probable COPD without acute cardiopulmonary disease or major change from June 16, 2012. Electronically Signed: Alfredo Massey D.O. at 9:41 EST , Service support [phone], CC: Isabelle Patiño DO Hydrochloric Area Supervisor: Signed Isabelle Patiño Work Phone: Start: 06-27-2013 End: 07-04-2013 Aorta Comments: See Note; NOTES: [facility] Imaging Services [address] [place] [address] Ultrasound Report MR#: [id number] Acct: [id number] Name: SKYLER SANTOS Rep #: [id number] : 1935 M 78 From: Antony Brown MD PCP: Isabelle Patiño DO Status: REG CLI Study: Aorta Date of Exam: 06/27/13 Exam# [id number] Ordering Dr: Isabelle Patiño DO PROCEDURES: ULTRASOUND AORTA REASON FOR EXAM: Male, 78 years old. Screening for abdominal aortic aneurysm. TECHNIQUE: Ultrasound evaluation of the aorta was performed with real-time and static leslie-scale imaging. COMPARISON: None. FINDINGS: There is atherosclerotic plaque formation of the abdominal aorta. Aorta measures: Proximal 2.2 cm. Middle 2.0 cm. Distal 1.8 cm. Aorta measure transversely: Proximal 1.7 cm. Middle 1.7 cm. Distal 1.8 cm. Right iliac artery measures: 1.4 cm. Right iliac artery measure transversely: 1.1 cm. Left iliac artery measures: 1.2 cm. Left iliac artery measure transversely: 1.1 cm. There is no demonstrated aneurysm.. IMPRESSION: Atherosclerotic plaque formation. There is no evidence of abdominal aortic aneurysm. Signed: Antony Brown M.D. June 27, 2013 at 1:47:28 PM EDT [phone] Electronically Signed GP/GP If you are the referring physician and would like to consult with the radiologist who provided this interpretation, please contact Antony Brown M.D. at [phone]. If this radiologist is unavailable, you will be directed to another radiologist to assist. If you are a patient with a question regarding this report, please contact your referring physician directly. Professional Interpretation Provided By: [employer], Phone , These documents contain legally protected and confidential health information intended only for the use of the individual or entity named above. If you are not the intended recipient, you are hereby notified that any disclosure, copying, distribution, or other use of these documents is strictly prohibited. If you have received this information in error, please notify the sender immediately and arrange for the return or destruction of these documents. CC: Isabelle Patiño DO Hydrochloric Area Supervisor: Signed Isabelle Patiño Work Phone: Plan of Treatment Date Care Activity Detail Author Start: 05-27-2024 Influenza vaccination Influenz a Vaccine (Season Ended) [facility] Start: 02-21-2024 Urine microalbumin profile DTaP,Tdap,Td Vaccine (3 - Td or Tdap) [facility] Start: 09-26-2023 Advance Directive Discussion Advance Directive Discussion [facility] Start: 09-26-2023 Behavioral Health Screening Behavioral Health Screening [facility] Start: 06-03-2023 Procedure [facility]; [facility] Work Phone: Start: 06-03-2023 Provider Instruction s for Treatment [facility]; [facility] Work Phone: Start: 06-03-2023 Hemoglobin glycosyla myles a1c [facility]; [facility] Work Phone: Start: 05-27-2023 Covid-19 Vaccine ( season) Covid-19 Vaccine () [facility] Start: 03-02-2023 Procedure Education [facility]; [facility] Work Phone: Start: 03-02-2023 Provider Instruction s for Treatment [facility]; [facility] Work Phone: Start: 03-02-2023 Assay of prostate specific antigen total [facility]; [facility] Work Phone: Start: 03-02-2023 Assay of thyroid stimulating hormone tsh [facility]; [facility] Work Phone: Start: 03-02-2023 Urnls dip stick/tabl et reagent auto microscopy [facility]; [facility] Work Phone: Start: 03-02-2023 Urine albumin quantitative [facility]; [facility] Work Phone: Start: 03-02-2023 Comprehensive metabo lic panel [facility]; [facility] Work Phone: Start: 03-02-2023 Lipid panel [facility]; [facility] Work Phone: Start: 03-02-2023 Blood count complete auto&auto difrntl wbc [facility]; [facility] Work Phone: Start: 11-29-2022 Procedure Education [facility]; [facility] Work Phone: Start: 11-29-2022 Provider Instruction s for Treatment [facility]; [facility] Work Phone: Start: 07-28-2022 Procedure Education [facility]; [facility] Work Phone: Start: 07-16-2022 Procedure Education [facility]; [facility] Work Phone: Start: 07-16-2022 Provider Instruction s for Treatment [facility]; [facility] Work Phone: Start: 06-07-2022 Procedure Education [facility]; [facility] Work Phone: Start: 06-07-2022 Provider Instruction s for Treatment [facility]; [facility] Work Phone: Start: 01-21-2022 Procedure Education [facility]; [facility] Work Phone: Start: 01-21-2022 Provider Instruction s for Treatment [facility]; [facility] Work Phone: Start: 10-16-2021 Procedure Education [facility]; [facility] Work Phone: Start: 10-16-2021 Provider Instruction s for Treatment [facility]; [facility] Work Phone: Start: 10-16-2021 Urine albumin quantitative [facility]; [facility] Work Phone: Start: 10-16-2021 Assay of thyroid stimulating hormone tsh [facility]; [facility] Work Phone: Start: 10-16-2021 Blood count complete auto&auto difrntl wbc [facility]; [facility] Work Phone: Start: 10-16-2021 Comprehensive metabo lic panel [facility]; [facility] Work Phone: Start: 10-16-2021 Lipid panel Com[facility]; [facility] Work Phone: Start: 08-11-2020 Procedure Education [facility] Work Phone: Start: 08-11-2020 Provider Instruction s for Treatment [facility] Work Phone: Start: 08-08-2020 Urinls dip stick/tab let reagnt non-auto micrscpy URINALYSIS W MICROSCOPY (35791) [facility] Work Phone: Start: 08-08-2020 Urine albumin quantitative MICROALBUMIN: CREATININE RATIO (88657) AND (14317) [facility] Work Phone: Start: 08-08-2020 Blood count complete automated CBC & PLATELETS (AUTO) (51725) [facility] Work Phone: Start: 08-08-2020 Comprehensive metabo lic panel METABOLIC PANEL, COMPREHENSIVE (36669) [facility] Work Phone: Start: 08-08-2020 TSH Qn TSH (THYROID STIMULATING HORMONE) (20378) [facility] Work Phone: Start: 08-08-2020 Lipoprotein blood qu an numbers & subclasses NMR Profile (69561) [facility] Work Phone: Start: 06-26-2020 Procedure Education [facility] Work Phone: Start: 06-26-2020 Provider Instruction s for Treatment [facility] Work Phone: Start: 06-26-2020 Glucose [Mass/Vol] Blood Gluco se , Office (99385) [facility] Work Phone: Start: 06-26-2020 HbA1c (Bld) [Mass fraction] HgA1C , Office (55415) [facility] Work Phone: Start: 02-25-2020 Procedure Education [facility] Work Phone: Start: 02-25-2020 Provider Instruction s for Treatment [facility] Work Phone: Start: 08-29-2019 Procedure Education [facility] Work Phone: Start: 08-29-2019 Provider Instruction s for Treatment [facility] Work Phone: Start: 08-08-2019 Procedure Education [facility] Work Phone: Start: 08-08-2019 Provider Instruction s for Treatment [facility] Work Phone: Start: 07-25-2018 Procedure Education [facility] Work Phone: Start: 07-25-2018 Provider Instruction s for Treatment [facility] Work Phone: Start: 05-17-2018 Provider Instruction s for Treatment [facility] Work Phone: Start: 04-05-2018 Provider Instruction s for Treatment [facility] Work Phone: Start: 02-14-2018 Procedure Education [facility] Work Phone: Start: 11-08-2017 Provider Instruction s for Treatment [facility] Work Phone: Start: 06-27-2017 Provider Instruction s for Treatment [facility] Work Phone: Start: 05-05-2017 Provider Instruction s for Treatment [facility] Work Phone: Start: 12-23-2016 Patient Education [facility] Work Phone: Start: 12-23-2016 Provider Instruction s for Treatment [facility] Work Phone: Start: 12-23-2016 Assay of thyroid stimulating hormone tsh [facility]; [facility] Work Phone: Start: 12-23-2016 Thyrotropin Qn TSH (21284) [facility] Work Phone: Start: 12-23-2016 Urnls dip stick/tabl et reagent auto microscopy [facility] Work Phone: Start: 12-23-2016 Urine albumin quantitative [facility] Work Phone: Start: 12-23-2016 Comprehensive metabo lic panel [facility] Work Phone: Start: 12-23-2016 Lipid panel [facility] Work Phone: Start: 12-23-2016 Blood count complete auto&auto difrntl wbc [facility] Work Phone: Start: 06-24-2016 Provider Instruction s for Treatment [facility] Work Phone: Start: 06-24-2016 Blood occult fecal h gb deter ia qual feces 1-3 [facility] Work Phone: Start: 06-17-2016 Patient Education [facility] Work Phone: Start: 06-17-2016 Procedure Education [facility] Work Phone: Start: 06-17-2016 Provider Instruction s for Treatment [facility] Work Phone: Start: 02-13-2016 25 hydroxy includes fractions if performed [facility] Work Phone: Start: 02-13-2016 Assay of thyroid stimulating hormone tsh [facility]; [facility] Work Phone: Start: 02-13-2016 Thyrotropin Qn TSH (85088) [facility] Work Phone: Start: 02-13-2016 Lipid panel [facility] Work Phone: Start: 02-13-2016 Urnls dip stick/tabl et reagent auto microscopy [facility] Work Phone: Start: 02-13-2016 Urine albumin quantitative [facility] Work Phone: Start: 02-13-2016 Comprehensive metabo lic panel [facility] Work Phone: Start: 02-13-2016 Blood count complete auto&auto difrntl wbc [facility] Work Phone: Start: 02-13-2016 Patient Education [facility] Work Phone: Start: 02-13-2016 Procedure Education [facility] Work Phone: Start: 02-13-2016 Provider Instruction s for Treatment [facility] Work Phone: Start: 11-12-2015 Patient Education [facility] Work Phone: Start: 11-12-2015 Procedure Education [facility] Work Phone: Start: 11-12-2015 Provider Instruction s for Treatment [facility] Work Phone: Start: 07-17-2015 Procedure Education [facility] Work Phone: Start: 07-17-2015 End: 07-17-2015 Spmtry w/vc expiratory karin w/wo mxml vol vntj [facility]; [facility] Work Phone: Start: 07-08-2015 Procedure Education [facility] Work Phone: Start: 07-08-2015 Provider Instruction s for Treatment [facility] Work Phone: Start: 07-08-2015 Assay of thyroid stimulating hormone tsh [facility]; [facility] Work Phone: Start: 07-08-2015 Thyrotropin Qn TSH (96378) [facility] Work Phone: Start: 07-08-2015 Urnls dip stick/tabl et reagent auto microscopy [facility] Work Phone: Start: 07-08-2015 Urine albumin quantitative [facility] Work Phone: Start: 07-08-2015 Comprehensive metabo lic panel [facility] Work Phone: Start: 07-08-2015 Lipid panel [facility] Work Phone: Start: 07-08-2015 Blood count complete auto&auto difrntl wbc [facility] Work Phone: Start: 06-19-2015 Procedure Education [facility] Work Phone: Start: 06-19-2015 Provider Instruction s for Treatment [facility] Work Phone: Start: 06-19-2015 Blood occult fecal h gb deter ia qual feces 1-3 [facility] Work Phone: Start: 04-10-2015 Patient Education [facility] Work Phone: Start: 04-10-2015 Procedure Education [facility] Work Phone: Start: 04-10-2015 Provider Instruction s for Treatment [facility] Work Phone: Start: 01-24-2015 Provider Instruction s for Treatment [facility] Work Phone: Start: 01-09-2015 Patient Education [facility] Work Phone: Start: 01-09-2015 Procedure Education [facility] Work Phone: Start: 01-09-2015 Provider Instruction s for Treatment [facility] Work Phone: Start: 10-10-2014 Provider Instruction s for Treatment [facility] Work Phone: Start: 10-10-2014 25 hydroxy includes fractions if performed [facility] Work Phone: Start: 10-10-2014 Assay of thyroid stimulating hormone tsh [facility]; [facility] Work Phone: Start: 10-10-2014 Thyrotropin Qn TSH (43555) [facility] Work Phone: Start: 10-10-2014 Urnls dip stick/tabl et reagent auto microscopy [facility] Work Phone: Start: 10-10-2014 Urine albumin quantitative [facility] Work Phone: Start: 10-10-2014 Comprehensive metabo lic panel [facility] Work Phone: Start: 10-10-2014 Lipid panel [facility] Work Phone: Start: 10-10-2014 Blood count complete auto&auto difrntl wbc [facility] Work Phone: Start: 08-06-2014 Provider Instruction s for Treatment [facility] Work Phone: Start: 07-16-2014 Provider Instruction s for Treatment [facility] Work Phone: Start: 07-05-2014 Patient Education [facility] Work Phone: Start: 07-05-2014 Procedure Education [facility] Work Phone: Start: 07-05-2014 Provider Instruction s for Treatment [facility] Work Phone: Start: 06-26-2014 Lipid panel [facility] Work Phone: Start: 06-26-2014 Urine albumin quantitative [facility] Work Phone: Start: 06-26-2014 Urnls dip stick/tabl et reagent auto microscopy [facility] Work Phone: Start: 06-26-2014 Comprehensive metabo lic panel [facility] Work Phone: Start: 06-26-2014 Blood count manual c ell count each [facility] Work Phone: Start: 06-26-2014 Assay of thyroid stimulating hormone tsh [facility]; [facility] Work Phone: Start: 06-26-2014 Thyrotropin Qn TSH (17270) [facility] Work Phone: Start: 06-20-2014 Provider Instruction s for Treatment [facility] Work Phone: Start: 06-11-2014 Provider Instruction s for Treatment [facility] Work Phone: Start: 04-04-2014 Procedure Education [facility] Work Phone: Start: 04-04-2014 Provider Instruction s for Treatment [facility] Work Phone: Start: 01-03-2014 Patient Education [facility] Work Phone: Start: 01-03-2014 Provider Instruction s for Treatment [facility] Work Phone: Start: 07-03-2013 Provider Instruction s for Treatment [facility] Work Phone: Start: 06-20-2013 Patient Education [facility] Work Phone: Start: 06-20-2013 Provider Instruction s for Treatment [facility] Work Phone: Start: 03-15-2013 Patient Education [facility] Work Phone: Start: 03-15-2013 Provider Instruction s for Treatment [facility] Work Phone: Start: 10-11-2012 Patient Education [facility] Work Phone: Start: 10-11-2012 Provider Instruction s for Treatment [facility] Work Phone: Start: 07-07-2012 Provider Instruction s for Treatment [facility] Work Phone: Start: 07-04-2012 Provider Instruction s for Treatment [facility] Work Phone: Start: 05-19-2011 Provider Instruction s for Treatment [facility] Work Phone: Start: 03-08-2011 Provider Instruction s for Treatment [facility] Work Phone: Start: 02-15-2011 Provider Instruction s for Treatment [facility] Work Phone: Start: 10-22-2010 Provider Instruction s for Treatment [facility] Work Phone: Start: 07-16-2010 Provider Instruction s for Treatment [facility] Work Phone: Start: 04-17-2010 Provider Instruction s for Treatment [facility] Work Phone: Start: 04-17-2010 Urine albumin quantitative [facility] Work Phone: Start: 04-17-2010 Hemoglobin A1c/Hemoglobin.total mass fraction (Bld) HgA1C , Office (23112) [facility] Work Phone: Comment on above: done km Start: 04-17-2010 Hemoglobin glycosyla myles a1c [facility]; [facility] Work Phone: Start: 01-16-2010 Provider Instruction s for Treatment [facility] Work Phone: Start: 10-17-2009 Provider Instruction s for Treatment [facility] Work Phone: Start: 10-17-2009 Lipid panel [facility] Work Phone: Start: 07-18-2009 Provider Instruction s for Treatment [facility] Work Phone: Start: 07-18-2009 Assay of thyroid stimulating hormone tsh [facility]; [facility] Work Phone: Start: 07-18-2009 Thyrotropin Qn TSH (39730) [facility] Work Phone: Start: 07-18-2009 Urine albumin quantitative [facility] Work Phone: Start: 07-18-2009 Urnls dip stick/tabl et rgnt auto w/o microscopy [facility] Work Phone: Start: 07-18-2009 Comprehensive metabo lic panel [facility] Work Phone: Start: 07-18-2009 Lipid panel [facility] Work Phone: Start: 07-18-2009 Blood count manual c ell count each [facility] Work Phone: Start: 04-17-2009 Provider Instruction s for Treatment [facility] Work Phone: Start: 10-08-2008 Provider Instruction s for Treatment [facility] Work Phone: Start: 09-11-2008 Provider Instruction s for Treatment [facility] Work Phone: Start: 06-14-2008 Provider Instruction s for Treatment [facility] Work Phone: Start: 06-14-2008 Blood occult fecal h gb deter ia qual feces 1-3 [facility] Work Phone: Comment on above: dispensed today Start: 03-14-2008 Provider Instruction s for Treatment [facility] Work Phone: Start: 03-14-2008 Assay of thyroid stimulating hormone tsh [facility]; [facility] Work Phone: Start: 03-14-2008 Thyrotropin Qn TSH (37282) [facility] Work Phone: Start: 03-14-2008 Urine albumin quantitative [facility] Work Phone: Start: 03-14-2008 Comprehensive metabo lic panel [facility] Work Phone: Start: 03-14-2008 Blood count manual c ell count each [facility] Work Phone: Start: 03-14-2008 Lipid panel Com[facility] Work Phone: Start: 12-06-2007 Provider Instruction s for Treatment [facility] Work Phone: Start: 08-28-2007 Provider Instruction s for Treatment [facility] Work Phone: Start: 08-28-2007 Lipid panel [facility] Work Phone: Start: 04-24-2007 Provider Instruction s for Treatment [facility] Work Phone: Start: 04-24-2007 Lipid panel Com[facility] Work Phone: Comment on above: [place] Start: 1997 RSV Vaccine (1 - 1-d ose 60+ series) RSV Vaccine (1 - 1-dose 60+ series) [facility] Start: 1987 Shingrix Vaccine (1 of 2) Shingrix Vaccine (1 of 2) [facility] Start: 1982 Diabetes Screening Diabetes Screenin g [facility] Start: 1943 Pneumococcal Vaccine : 65+ (1 of 2 - PCV) Pneumococcal Vaccine: 65+ (1 of 2 - PCV) [facility] Work Phone: [facility] Work Phone: [facility] Work Phone: [facility] Work Phone: [facility] Work Phone: [facility] Work Phone: [facility] Work Phone: [facility] Work Phone: [facility] Work Phone: [facility] Work Phone[facility] Work Phone: [facility] Work Phone: [facility] Work Phone: [facility] Work Phone: [facility] Work Phone: [facility] Work Phone: [facility] Work Phone: [facility] Work Phone: [facility] Work Phone: [facility] Work Phone: [facility] Work Phone: [facility] Work Phone: [facility] Work Phone: [facility] Work Phone: [facility] Work Phone: [facility] Work Phone: [facility] Work Phone: [facility] Work Phone: [facility] Work Phone: [facility] Work Phone: [facility] Work Phone: [facility] Work Phone: [facility] Work Phone: [facility] Work Phone: [facility] Work Phone: [facility] Work Phone: [facility] Work Phone: [facility] Work Phone: [facility] Work Phone: [facility] Work Phone: [facility] Work Phone: [facility] Work Phone: [facility] Work Phone: [facility] Work Phone: [facility] Work Phone: [facility] Work Phone: [facility] Work Phone: [facility] Work Phone: [facility] Work Phone: [facility] Work Phone: [facility] Work Phone[facility] Work Phone: [facility] Work Phone[facility] Work Phone: [facility] Work Phone: [facility]; [facility] Work Phone: [facility] Work Phone[facility]; [facility] Work Phone: [facility]; [facility] Work Phone[facility]; [facility] Work Phone: [facility]; [facility] Work Phone: [facility]; [facility] Work Phone: Immunizations Immunization Date Immunization Notes Care Provider Naomi kolb 02-20-2014 tetanus toxoid, reduced diphtheria toxoid, and acellular pertussis vaccine, adsorbed [facility] 09-03-2008 influenza, seasonal, injectable Isabelle Patiño [facility] Work Phone: Comment on above: Lot #[id number]/30/0 9Site-right deltoidDose0.5mlgiven by Vianca Gracia LPN 09-03-2008 influenza virus vaccine, unspecified formulation Zeyad Jim Work Phone: [facility] Payers Date Payer Category Payer Self-pay [id number] 2018 Medicare [employer]NA MEDICARE HU[employer]NA MEDICARE PPO [id number] 2018-Present [phone] [place] [address] PPO [id number] 2009 Medicare [id number] 2002 Medicare [id number] 1935 Unknown [id number] Unknown Unknown [facility] PACKAGE PLAN [id number] Unknown [id number] Unknown [id number] Unknown [id number] Unknown [id number] Unknown [id number] Unknown [id number] Unknown [id number] Social History Date Type Detail Facility Start: 07-10-2021 Caffeine Use [facility] Work Phone: Comment on above: 4-5 [employer] , 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, 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, 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 Smokes cigars- 1 pk/ day Start: 03-10-2021 End: 03-23-2022 Tobacco smoking status [facility] Unknown if ever smoked [facility] Start: 1935 Sex Assigned At Male [facility] Start: 07-10-2021 End: 03-22-2023 Tobacco smoking status NHIS Smokes tobacco daily [facility] Start: 07-10-2021 Tobacco use and exposure Smokeless tobacco non-user [facility] Start: 07-10-2021 Tobacco use panel [facility] National Score (1-10 0), lower number is lower risk Not on file [facility] Start: 1935 Sex Assigned At Not on file [facility] Functional Status Date Assessment Result Facility 08-08-2020 LP-IR Score 43 [facility] Work Phone: Comment on above: INSULIN RESISTANCE Ruben KELLER <--Insulin Sensitive Insulin Resistant--> Percentile in Reference PopulationInsulin Resistance ScoreLP-IR Score Low 25th 50th 75th High <27 27 45 63 >63LP-IR Score is inaccurate if patient is non-fasting. .The LP-IR score is a laboratory developed index that has beenassociated with insulin resistance and diabetes risk and should beused as one component of a physician's clinical assessment. Test(s) 026502-YDG-N ; 604178-ZOS-E; 908555-Epoibpxlliqqv; 760938-Ombnjyhajld, Total; 117271-IRM-C (Total); 953673-Icsrb LDL-P; 104543-VGA Size; 476109-YX-MG Scorewas developed and its performance characteristics determinedby [facility]. It has not been cleared or approved by the Foodand Drug Administration.PATIENT WAS FASTINGPERFORMED BY: [address] [place] [id number] BY: [facility] [facility] [id number] 02-20-2020 LP-IR Score 52 [facility] Work Phone: Comment on above: INSULIN RESISTANCE M KRISHNA <--Insulin Sensitive Insulin Resistant--> Percentile in Reference PopulationInsulin Resistance ScoreLP-IR Score Low 25th 50th 75th High <27 27 45 63 >63LP-IR Score is inaccurate if patient is non-fasting. .The LP-IR score is a laboratory developed index that has beenassociated with insulin resistance and diabetes risk and should beused as one component of a physician's clinical assessment. Test(s) 394068-NDI-R ; 585913-GJV-B; 092108-FCY-C; 750331-Wfsvesvcagner; 498108-Ldkmybasgpg, Total; 199463-EGJ-F (Total);823376-Nhgha LDL-P; 498823-PUX Size; 322399-YU-AX Scorewas developed and its performance characteristics determinedby [facility]. It has not been cleared or approved by the Foodand Drug Administration.PATIENT WAS FASTINGPERFORMED BY: [address] [id number] BY: [facility] [facility] [id number] Clinical Notes 03-12-2024 Telephone Encounter - Zeyad Fernandez DO - 03/12/2024 1:56 PM EDTTelephone Encounter - Zeyad Fernandez DO - 03/12/2024 1:56 PM EDT Note Date & Type Note Facility 03-12-2024 Telephone encount er Note Nicolas for Skyler to establish care with me if interested. Zeyad Fernandez DO [facility] Work Phone: 03-12-2024 Miscellaneous Notes Formattin g of this note might be different from the original. Okluis enrique for Skyler to establish care with me if interested. Zeyad Fernandez DO documented in this encounter [facility] Evaluation note No assessment inform ation available [facility] Work Phone: Instructions Name cardiovascular counseling Indication:Coronary artery disease, non-occlusive Start:11-Aug-20 Instruction Type:Provider Instructions for Treatment How to access health information online Indication:BMI 26.0-26.9,adult Start:11-Aug-20 Instruction Type:Patient Education How to access health information online - Detail Indication:BMI 26.0-26.9,adult Start:11-Aug-20 Instruction Type:Patient Education Patient Instructions Indication:BMI 26.0-26.9,adult Start:11-Aug-20 Instruction Type:Provider Instructions for Treatment How to access health information online Indication:Smoker Start: Instruction Type:Patient Education How to access health information online - Detail Indication:Smoker Start: Instruction Type:Patient Education Patient Instructions Indication:Smoker Start: Instruction Type:Provider Instructions for Treatment How to access health information online Indication:BMI 26.0-26.9,adult Start: Instruction Type:Patient Education How to access health information online - Detail Indication:BMI 26.0-26.9,adult Start: Instruction Type:Patient Education Patient Instructions Indication:BMI 26.0-26.9,adult Start: Instruction Type:Provider Instructions for Treatment How to access health information online Indication:Coronary artery disease, non-occlusive Start: Instruction Type:Patient Education How to access health information online - Detail Indication:Coronary artery disease, non-occlusive Start: Instruction Type:Patient Education Patient Instructions Indication:Coronary artery disease, non-occlusive Start: Instruction Type:Provider Instructions for Treatment cardiovascular counseling Indication:Coronary artery disease, non-occlusive Start:08-Aug-20 Instruction Type:Provider Instructions for Treatment How to access health information online Indication:Cigar smoker Start:08-Aug-20 Instruction Type:Patient Education How to access health information online - Detail Indication:Cigar smoker Start:08-Aug-20 Instruction Type:Patient Education Patient Instructions Indication:Cigar smoker Start:08-Aug-20 Instruction Type:Provider Instructions for Treatment cardiovascular counseling Indication:Coronary artery disease, non-occlusive Start:25-Jul-20 Instruction Type:Provider Instructions for Treatment How to access health information online Indication:BMI 27.0-27.9,adult Start:25-Jul-20 Instruction Type:Patient Education How to access health information online - Detail Indication:BMI 27.0-27.9,adult Start:25-Jul-20 Instruction Type:Patient Education Patient Instructions Indication:BMI 27.0-27.9,adult Start:25-Jul-20 Instruction Type:Provider Instructions for Treatment How to access health information online Indication:Body mass index 26.0-26.9, adult Start:17-May-20 Instruction Type:Patient Education How to access health information online - Detail Indication:Body mass index 26.0-26.9, adult Start:17-May-20 Instruction Type:Patient Education Patient Instructions Indication:Body mass index 26.0-26.9, adult Start:17-May-20 Instruction Type:Provider Instructions for Treatment How to access health information online Indication:Tobacco Use Start:05-Apr-20 Instruction Type:Patient Education How to access health information online - Detail Indication:Tobacco Use Start:05-Apr-20 Instruction Type:Patient Education Patient Instructions Indication:Tobacco Use Start:05-Apr-20 Instruction Type:Provider Instructions for Treatment How to access health information online Indication:Body mass index 26.0-26.9, adult Start:15-Feb-20 Instruction Type:Patient Education How to access health information online - Detail Indication:Body mass index 26.0-26.9, adult Start:15-Feb-20 Instruction Type:Patient Education Patient Instructions Indication:Body mass index 26.0-26.9, adult Start:15-Feb-20 Instruction Type:Provider Instructions for Treatment How to access health information online Indication:Diabetes mellitus type 2, uncontrolled, without complications Start:08-Nov-19 Instruction Type:Patient Education How to access health information online - Detail Indication:Diabetes mellitus type 2, uncontrolled, without complications Start:08-Nov-19 Instruction Type:Patient Education Patient Instructions Indication:Diabetes mellitus type 2, uncontrolled, without complications Start:08-Nov-19 Instruction Type:Provider Instructions for Treatment cardiovascular counseling Indication:Coronary artery disease, non-occlusive Start: Instruction Type:Provider Instructions for Treatment How to access health information online Indication:Tobacco Use Start: Instruction Type:Patient Education How to access health information online - Detail Indication:Tobacco Use Start: Instruction Type:Patient Education Patient Instructions Indication:Tobacco Use Start: Instruction Type:Provider Instructions for Treatment How to access health information online Indication:Diabetes mellitus type 2, controlled Start:05-May-20 Instruction Type:Patient Education How to access health information online - Detail Indication:Diabetes mellitus type 2, controlled Start:05-May-20 Instruction Type:Patient Education Patient Instructions Indication:Diabetes mellitus type 2, controlled Start:05-May-20 Instruction Type:Provider Instructions for Treatment How to access health information online Indication:Diabetes mellitus type 2, controlled Start:24-Dec-19 Instruction Type:Patient Education How to access health information online - Detail Indication:Diabetes mellitus type 2, controlled Start:24-Dec-19 Instruction Type:Patient Education Patient Instructions Indication:Diabetes mellitus type 2, controlled Start:24-Dec-19 Instruction Type:Provider Instructions for Treatment Patient Instructions Indication:Annual Medicare Physical Start:24-Jun-20 Instruction Type:Provider Instructions for Treatment cardiovascular counseling Indication:Coronary artery disease, non-occlusive Start:24-Jun-20 Instruction Type:Provider Instructions for Treatment How to access health information online Indication:Diabetes mellitus type 2, controlled Start:17-Jun-20 Instruction Type:Patient Education How to access health information online - Detail Indication:Diabetes mellitus type 2, controlled Start:17-Jun-20 Instruction Type:Patient Education Patient Instructions Indication:Diabetes mellitus type 2, controlled Start:17-Jun-20 Instruction Type:Provider Instructions for Treatment How to access health information online Indication:Diabetes mellitus type 2, controlled Start:13-Feb-20 Instruction Type:Patient Education How to access health information online - Detail Indication:Diabetes mellitus type 2, controlled Start:13-Feb-20 Instruction Type:Patient Education Patient Instructions Indication:Diabetes mellitus type 2, controlled Start:13-Feb-20 Instruction Type:Provider Instructions for Treatment How to access health information online Indication:Diabetes mellitus type 2, controlled Start:12-Nov-19 Instruction Type:Patient Education How to access health information online - Detail Indication:Diabetes mellitus type 2, controlled Start:12-Nov-19 Instruction Type:Patient Education Patient Instructions Indication:Diabetes mellitus type 2, controlled Start:12-Nov-19 Instruction Type:Provider Instructions for Treatment Patient Instructions Indication:COPD, moderate Start:17-Jul-20 Instruction Type:Provider Instructions for Treatment How to access health information online Indication:Diabetes mellitus type 2, uncontrolled, without complications Start:08-Jul-20 Instruction Type:Patient Education How to access health information online - Detail Indication:Diabetes mellitus type 2, uncontrolled, without complications Start:08-Jul-20 Instruction Type:Patient Education Patient Instructions Indication:Diabetes mellitus type 2, uncontrolled, without complications Start:08-Jul-20 Instruction Type:Provider Instructions for Treatment cardiovascular counseling Indication:Coronary artery disease, non-occlusive Start:19-Jun-20 Instruction Type:Provider Instructions for Treatment How to access health information online Indication:Annual Medicare Physical Start:19-Jun-20 Instruction Type:Patient Education How to access health information online - Detail Indication:Annual Medicare Physical Start:19-Jun-20 Instruction Type:Patient Education Patient Instructions Indication:Annual Medicare Physical Start:19-Jun-20 Instruction Type:Provider Instructions for Treatment How to access health information online Indication:Diabetes mellitus type 2, controlled Start:10-Apr-20 Instruction Type:Patient Education How to access health information online - Detail Indication:Diabetes mellitus type 2, controlled Start:10-Apr-20 Instruction Type:Patient Education Patient Instructions Indication:Diabetes mellitus type 2, controlled Start:10-Apr-20 Instruction Type:Provider Instructions for Treatment Patient Instructions Indication:Diabetes mellitus type 2, controlled Start:10-Jan-20 Instruction Type:Provider Instructions for Treatment Patient Instructions Indication:Coronary artery disease, non-occlusive Start:10-Oct-19 Instruction Type:Provider Instructions for Treatment How to access health information online Indication:Diabetes mellitus type 2, uncontrolled, without complications Start:05-Jul-20 Instruction Type:Patient Education How to access health information online - Detail Indication:Diabetes mellitus type 2, uncontrolled, without complications Start:05-Jul-20 Instruction Type:Patient Education Patient Instructions Indication:Diabetes mellitus type 2, uncontrolled, without complications Start:05-Jul-20 Instruction Type:Provider Instructions for Treatment cardiovascular counseling Indication:Coronary artery disease, non-occlusive Start:16-Sep-20 14 Instruction Type:Provider Instructions for Treatment How to access health information online Indication:Diabetes mellitus type 2, controlled Start:04-Apr-20 14 Instruction Type:Patient Education How to access health information online - Detail Indication:Diabetes mellitus type 2, controlled Start:04-Apr-20 14 Instruction Type:Patient Education Patient Instructions Indication:Diabetes mellitus type 2, controlled Start:04-Apr-20 14 Instruction Type:Provider Instructions for Treatment Patient Instructions Indication:Diabetes mellitus type 2, controlled Start:04-Jan-20 14 Instruction Type:Provider Instructions for Treatment cardiovascular counseling Indication:Coronary artery disease, non-occlusive Start:20-Jun-20 13 Instruction Type:Provider Instructions for Treatment Patient Instructions Indication:Diabetes mellitus type 2, controlled Start:20-Jun-20 Instruction Type:Provider Instructions for Treatment Patient Instructions Indication:COPD, moderate Start:11-Oct-19 13 Instruction Type:Provider Instructions for Treatment Patient Instructions Indication:Coronary artery disease, non-occlusive Start:07-Jul-20 Instruction Type:Provider Instructions for Treatment [facility]; [facility] Work Phone: Instructions* Name Dates Details Patient Instructions Indication:Smoker Start:16-Oct-2021 Instruction Type:Provider Instructions for Treatment How to Access Health Informa tion Online using Patient Portal and [employer] Apps Indication:Smoker Start:16-Oct-2021 Instruction Type:Patient Education cardiovascular counseling Indication:Coronary artery disease, non-occlusive Start:11-Aug-2020 Instruction Type:Provider Instructions for Treatment How to access health informa tion online Indication:BMI 26.0-26.9,adult Start:11-Aug-2020 Instruction Type:Patient Education How to access health informa tion online - Detail Indication:BMI 26.0-26.9,adult Start:11-Aug-2020 Instruction Type:Patient Education Patient Instructions Indication:BMI 26.0-26.9,adult Start:11-Aug-2020 Instruction Type:Provider Instructions for Treatment How to access health informa tion online Indication:Smoker Start:26-Jun-2020 Instruction Type:Patient Education How to access health informa tion online - Detail Indication:Smoker Start:26-Jun-2020 Instruction Type:Patient Education Patient Instructions Indication:Smoker Start:26-Jun-2020 Instruction Type:Provider Instructions for Treatment How to access health informa tion online Indication:BMI 26.0-26.9,adult Start:25-Feb-2020 Instruction Type:Patient Education How to access health informa tion online - Detail Indication:BMI 26.0-26.9,adult Start:25-Feb-2020 Instruction Type:Patient Education Patient Instructions Indication:BMI 26.0-26.9,adult Start:25-Feb-2020 Instruction Type:Provider Instructions for Treatment How to access health informa tion online Indication:Coronary artery disease, non-occlusive Start:29-Aug-2019 Instruction Type:Patient Education How to access health informa tion online - Detail Indication:Coronary artery disease, non-occlusive Start:29-Aug-2019 Instruction Type:Patient Education Patient Instructions Indication:Coronary artery disease, non-occlusive Start:29-Aug-2019 Instruction Type:Provider Instructions for Treatment cardiovascular counseling Indication:Coronary artery disease, non-occlusive Start:08-Aug-2019 Instruction Type:Provider Instructions for Treatment How to access health informa tion online Indication:Cigar smoker Start:08-Aug-2019 Instruction Type:Patient Education How to access health informa tion online - Detail Indication:Cigar smoker Start:08-Aug-2019 Instruction Type:Patient Education Patient Instructions Indication:Cigar smoker Start:08-Aug-2019 Instruction Type:Provider Instructions for Treatment cardiovascular counseling Indication:Coronary artery disease, non-occlusive Start:25-Jul-2018 Instruction Type:Provider Instructions for Treatment How to access health informa tion online Indication:BMI 27.0-27.9,adult Start:25-Jul-2018 Instruction Type:Patient Education How to access health informa tion online - Detail Indication:BMI 27.0-27.9,adult Start:25-Jul-2018 Instruction Type:Patient Education Patient Instructions Indication:BMI 27.0-27.9,adult Start:25-Jul-2018 Instruction Type:Provider Instructions for Treatment How to access health informa tion online Indication:Body mass index 26.0-26.9, adult Start:17-May-2018 Instruction Type:Patient Education How to access health informa tion online - Detail Indication:Body mass index 26.0-26.9, adult Start:17-May-2018 Instruction Type:Patient Education Patient Instructions Indication:Body mass index 26.0-26.9, adult Start:17-May-2018 Instruction Type:Provider Instructions for Treatment How to access health informa tion online Indication:Tobacco Use Start:05-Apr-2018 Instruction Type:Patient Education How to access health informa tion online - Detail Indication:Tobacco Use Start:05-Apr-2018 Instruction Type:Patient Education Patient Instructions Indication:Tobacco Use Start:05-Apr-2018 Instruction Type:Provider Instructions for Treatment How to access health informa tion online Indication:Body mass index 26.0-26.9, adult Start:14-Feb-2018 Instruction Type:Patient Education How to access health informa tion online - Detail Indication:Body mass index 26.0-26.9, adult Start:14-Feb-2018 Instruction Type:Patient Education Patient Instructions Indication:Body mass index 26.0-26.9, adult Start:14-Feb-2018 Instruction Type:Provider Instructions for Treatment How to access health informa tion online Indication:Diabetes mellitus type 2, uncontrolled, without complications Start:08-Nov-2017 Instruction Type:Patient Education How to access health informa tion online - Detail Indication:Diabetes mellitus type 2, uncontrolled, without complications Start:08-Nov-2017 Instruction Type:Patient Education Patient Instructions Indication:Diabetes mellitus type 2, uncontrolled, without complications Start:08-Nov-2017 Instruction Type:Provider Instructions for Treatment cardiovascular counseling Indication:Coronary artery disease, non-occlusive Start:27-Jun-2017 Instruction Type:Provider Instructions for Treatment How to access health informa tion online Indication:Tobacco Use Start:27-Jun-2017 Instruction Type:Patient Education How to access health informa tion online - Detail Indication:Tobacco Use Start:27-Jun-2017 Instruction Type:Patient Education Patient Instructions Indication:Tobacco Use Start:27-Jun-2017 Instruction Type:Provider Instructions for Treatment How to access health informa tion online Indication:Diabetes mellitus type 2, controlled Start:05-May-2017 Instruction Type:Patient Education How to access health informa tion online - Detail Indication:Diabetes mellitus type 2, controlled Start:05-May-2017 Instruction Type:Patient Education Patient Instructions Indication:Diabetes mellitus type 2, controlled Start:05-May-2017 Instruction Type:Provider Instructions for Treatment How to access health informa tion online Indication:Diabetes mellitus type 2, controlled Start:23-Dec-2016 Instruction Type:Patient Education How to access health informa tion online - Detail Indication:Diabetes mellitus type 2, controlled Start:23-Dec-2016 Instruction Type:Patient Education Patient Instructions Indication:Diabetes mellitus type 2, controlled Start:23-Dec-2016 Instruction Type:Provider Instructions for Treatment Patient Instructions Indication:Annual Medicare Physical Start:24-Jun-2016 Instruction Type:Provider Instructions for Treatment cardiovascular counseling Indication:Coronary artery disease, non-occlusive Start:24-Jun-2016 Instruction Type:Provider Instructions for Treatment How to access health informa tion online Indication:Diabetes mellitus type 2, controlled Start:17-Jun-2016 Instruction Type:Patient Education How to access health informa tion online - Detail Indication:Diabetes mellitus type 2, controlled Start:17-Jun-2016 Instruction Type:Patient Education Patient Instructions Indication:Diabetes mellitus type 2, controlled Start:17-Jun-2016 Instruction Type:Provider Instructions for Treatment How to access health informa tion online Indication:Diabetes mellitus type 2, controlled Start:13-Feb-2016 Instruction Type:Patient Education How to access health informa tion online - Detail Indication:Diabetes mellitus type 2, controlled Start:13-Feb-2016 Instruction Type:Patient Education Patient Instructions Indication:Diabetes mellitus type 2, controlled Start:13-Feb-2016 Instruction Type:Provider Instructions for Treatment How to access health informa tion online Indication:Diabetes mellitus type 2, controlled Start:12-Nov-2015 Instruction Type:Patient Education How to access health informa tion online - Detail Indication:Diabetes mellitus type 2, controlled Start:12-Nov-2015 Instruction Type:Patient Education Patient Instructions Indication:Diabetes mellitus type 2, controlled Start:12-Nov-2015 Instruction Type:Provider Instructions for Treatment Patient Instructions Indication:COPD, moderate Start:17-Jul-2015 Instruction Type:Provider Instructions for Treatment How to access health informa tion online Indication:Diabetes mellitus type 2, uncontrolled, without complications Start:08-Jul-2015 Instruction Type:Patient Education How to access health informa tion online - Detail Indication:Diabetes mellitus type 2, uncontrolled, without complications Start:08-Jul-2015 Instruction Type:Patient Education Patient Instructions Indication:Diabetes mellitus type 2, uncontrolled, without complications Start:08-Jul-2015 Instruction Type:Provider Instructions for Treatment cardiovascular counseling Indication:Coronary artery disease, non-occlusive Start:19-Jun-2015 Instruction Type:Provider Instructions for Treatment How to access health informa tion online Indication:Annual Medicare Physical Start:19-Jun-2015 Instruction Type:Patient Education How to access health informa tion online - Detail Indication:Annual Medicare Physical Start:19-Jun-2015 Instruction Type:Patient Education Patient Instructions Indication:Annual Medicare Physical Start:19-Jun-2015 Instruction Type:Provider Instructions for Treatment How to access health informa tion online Indication:Diabetes mellitus type 2, controlled Start:10-Apr-2015 Instruction Type:Patient Education How to access health informa tion online - Detail Indication:Diabetes mellitus type 2, controlled Start:10-Apr-2015 Instruction Type:Patient Education Patient Instructions Indication:Diabetes mellitus type 2, controlled Start:10-Apr-2015 Instruction Type:Provider Instructions for Treatment Patient Instructions Indication:Diabetes mellitus type 2, controlled Start:09-Jan-2015 Instruction Type:Provider Instructions for Treatment Patient Instructions Indication:Coronary artery disease, non-occlusive Start:10-Oct-2014 Instruction Type:Provider Instructions for Treatment How to access health informa tion online Indication:Diabetes mellitus type 2, uncontrolled, without complications Start:05-Jul-2014 Instruction Type:Patient Education How to access health informa tion online - Detail Indication:Diabetes mellitus type 2, uncontrolled, without complications Start:05-Jul-2014 Instruction Type:Patient Education Patient Instructions Indication:Diabetes mellitus type 2, uncontrolled, without complications Start:05-Jul-2014 Instruction Type:Provider Instructions for Treatment cardiovascular counseling Indication:Coronary artery disease, non-occlusive Start:11-Jun-2014 Instruction Type:Provider Instructions for Treatment How to access health informa tion online Indication:Diabetes mellitus type 2, controlled Start:04-Apr-2014 Instruction Type:Patient Education How to access health informa tion online - Detail Indication:Diabetes mellitus type 2, controlled Start:04-Apr-2014 Instruction Type:Patient Education Patient Instructions Indication:Diabetes mellitus type 2, controlled Start:04-Apr-2014 Instruction Type:Provider Instructions for Treatment Patient Instructions Indication:Diabetes mellitus type 2, controlled Start:03-Jan-2014 Instruction Type:Provider Instructions for Treatment cardiovascular counseling Indication:Coronary artery disease, non-occlusive Start:20-Jun-2013 Instruction Type:Provider Instructions for Treatment Patient Instructions Indication:Diabetes mellitus type 2, controlled Start:20-Jun-2013 Instruction Type:Provider Instructions for Treatment Patient Instructions Indication:COPD, moderate Start:11-Oct-2012 Instruction Type:Provider Instructions for Treatment Patient Instructions Indication:Coronary artery disease, non-occlusive Start:07-Jul-2012 Instruction Type:Provider Instructions for Treatment [facility]; [facility] Work Phone: Instructions* Name Dates Details Patient Instructions Indication:BMI 26.0-26.9,adult Start:21-Jan-2022 Instruction Type:Provider Instructions for Treatment How to Access Health Informa tion Online using Patient Portal and [employer] Apps Indication:BMI 26.0-26.9,adult Start:21-Jan-2022 Instruction Type:Patient Education Patient Instructions Indication:Smoker Start:16-Oct-2021 Instruction Type:Provider Instructions for Treatment How to Access Health Informa tion Online using Patient Portal and [employer] Apps Indication:Smoker Start:16-Oct-2021 Instruction Type:Patient Education cardiovascular counseling Indication:Coronary artery disease, non-occlusive Start:11-Aug-2020 Instruction Type:Provider Instructions for Treatment How to access health informa tion online Indication:BMI 26.0-26.9,adult Start:11-Aug-2020 Instruction Type:Patient Education How to access health informa tion online - Detail Indication:BMI 26.0-26.9,adult Start:11-Aug-2020 Instruction Type:Patient Education Patient Instructions Indication:BMI 26.0-26.9,adult Start:11-Aug-2020 Instruction Type:Provider Instructions for Treatment How to access health informa tion online Indication:Smoker Start:26-Jun-2020 Instruction Type:Patient Education How to access health informa tion online - Detail Indication:Smoker Start:26-Jun-2020 Instruction Type:Patient Education Patient Instructions Indication:Smoker Start:26-Jun-2020 Instruction Type:Provider Instructions for Treatment How to access health informa tion online Indication:BMI 26.0-26.9,adult Start:25-Feb-2020 Instruction Type:Patient Education How to access health informa tion online - Detail Indication:BMI 26.0-26.9,adult Start:25-Feb-2020 Instruction Type:Patient Education Patient Instructions Indication:BMI 26.0-26.9,adult Start:25-Feb-2020 Instruction Type:Provider Instructions for Treatment How to access health informa tion online Indication:Coronary artery disease, non-occlusive Start:29-Aug-2019 Instruction Type:Patient Education How to access health informa tion online - Detail Indication:Coronary artery disease, non-occlusive Start:29-Aug-2019 Instruction Type:Patient Education Patient Instructions Indication:Coronary artery disease, non-occlusive Start:29-Aug-2019 Instruction Type:Provider Instructions for Treatment cardiovascular counseling Indication:Coronary artery disease, non-occlusive Start:08-Aug-2019 Instruction Type:Provider Instructions for Treatment How to access health informa tion online Indication:Cigar smoker Start:08-Aug-2019 Instruction Type:Patient Education How to access health informa tion online - Detail Indication:Cigar smoker Start:08-Aug-2019 Instruction Type:Patient Education Patient Instructions Indication:Cigar smoker Start:08-Aug-2019 Instruction Type:Provider Instructions for Treatment cardiovascular counseling Indication:Coronary artery disease, non-occlusive Start:25-Jul-2018 Instruction Type:Provider Instructions for Treatment How to access health informa tion online Indication:BMI 27.0-27.9,adult Start:25-Jul-2018 Instruction Type:Patient Education How to access health informa tion online - Detail Indication:BMI 27.0-27.9,adult Start:25-Jul-2018 Instruction Type:Patient Education Patient Instructions Indication:BMI 27.0-27.9,adult Start:25-Jul-2018 Instruction Type:Provider Instructions for Treatment How to access health informa tion online Indication:Body mass index 26.0-26.9, adult Start:17-May-2018 Instruction Type:Patient Education How to access health informa tion online - Detail Indication:Body mass index 26.0-26.9, adult Start:17-May-2018 Instruction Type:Patient Education Patient Instructions Indication:Body mass index 26.0-26.9, adult Start:17-May-2018 Instruction Type:Provider Instructions for Treatment How to access health informa tion online Indication:Tobacco Use Start:05-Apr-2018 Instruction Type:Patient Education How to access health informa tion online - Detail Indication:Tobacco Use Start:05-Apr-2018 Instruction Type:Patient Education Patient Instructions Indication:Tobacco Use Start:05-Apr-2018 Instruction Type:Provider Instructions for Treatment How to access health informa tion online Indication:Body mass index 26.0-26.9, adult Start:14-Feb-2018 Instruction Type:Patient Education How to access health informa tion online - Detail Indication:Body mass index 26.0-26.9, adult Start:14-Feb-2018 Instruction Type:Patient Education Patient Instructions Indication:Body mass index 26.0-26.9, adult Start:14-Feb-2018 Instruction Type:Provider Instructions for Treatment How to access health informa tion online Indication:Diabetes mellitus type 2, uncontrolled, without complications Start:08-Nov-2017 Instruction Type:Patient Education How to access health informa tion online - Detail Indication:Diabetes mellitus type 2, uncontrolled, without complications Start:08-Nov-2017 Instruction Type:Patient Education Patient Instructions Indication:Diabetes mellitus type 2, uncontrolled, without complications Start:08-Nov-2017 Instruction Type:Provider Instructions for Treatment cardiovascular counseling Indication:Coronary artery disease, non-occlusive Start:27-Jun-2017 Instruction Type:Provider Instructions for Treatment How to access health informa tion online Indication:Tobacco Use Start:27-Jun-2017 Instruction Type:Patient Education How to access health informa tion online - Detail Indication:Tobacco Use Start:27-Jun-2017 Instruction Type:Patient Education Patient Instructions Indication:Tobacco Use Start:27-Jun-2017 Instruction Type:Provider Instructions for Treatment How to access health informa tion online Indication:Diabetes mellitus type 2, controlled Start:05-May-2017 Instruction Type:Patient Education How to access health informa tion online - Detail Indication:Diabetes mellitus type 2, controlled Start:05-May-2017 Instruction Type:Patient Education Patient Instructions Indication:Diabetes mellitus type 2, controlled Start:05-May-2017 Instruction Type:Provider Instructions for Treatment How to access health informa tion online Indication:Diabetes mellitus type 2, controlled Start:23-Dec-2016 Instruction Type:Patient Education How to access health informa tion online - Detail Indication:Diabetes mellitus type 2, controlled Start:23-Dec-2016 Instruction Type:Patient Education Patient Instructions Indication:Diabetes mellitus type 2, controlled Start:23-Dec-2016 Instruction Type:Provider Instructions for Treatment Patient Instructions Indication:Annual Medicare Physical Start:24-Jun-2016 Instruction Type:Provider Instructions for Treatment cardiovascular counseling Indication:Coronary artery disease, non-occlusive Start:24-Jun-2016 Instruction Type:Provider Instructions for Treatment How to access health informa tion online Indication:Diabetes mellitus type 2, controlled Start:17-Jun-2016 Instruction Type:Patient Education How to access health informa tion online - Detail Indication:Diabetes mellitus type 2, controlled Start:17-Jun-2016 Instruction Type:Patient Education Patient Instructions Indication:Diabetes mellitus type 2, controlled Start:17-Jun-2016 Instruction Type:Provider Instructions for Treatment How to access health informa tion online Indication:Diabetes mellitus type 2, controlled Start:13-Feb-2016 Instruction Type:Patient Education How to access health informa tion online - Detail Indication:Diabetes mellitus type 2, controlled Start:13-Feb-2016 Instruction Type:Patient Education Patient Instructions Indication:Diabetes mellitus type 2, controlled Start:13-Feb-2016 Instruction Type:Provider Instructions for Treatment How to access health informa tion online Indication:Diabetes mellitus type 2, controlled Start:12-Nov-2015 Instruction Type:Patient Education How to access health informa tion online - Detail Indication:Diabetes mellitus type 2, controlled Start:12-Nov-2015 Instruction Type:Patient Education Patient Instructions Indication:Diabetes mellitus type 2, controlled Start:12-Nov-2015 Instruction Type:Provider Instructions for Treatment Patient Instructions Indication:COPD, moderate Start:17-Jul-2015 Instruction Type:Provider Instructions for Treatment How to access health informa tion online Indication:Diabetes mellitus type 2, uncontrolled, without complications Start:08-Jul-2015 Instruction Type:Patient Education How to access health informa tion online - Detail Indication:Diabetes mellitus type 2, uncontrolled, without complications Start:08-Jul-2015 Instruction Type:Patient Education Patient Instructions Indication:Diabetes mellitus type 2, uncontrolled, without complications Start:08-Jul-2015 Instruction Type:Provider Instructions for Treatment cardiovascular counseling Indication:Coronary artery disease, non-occlusive Start:19-Jun-2015 Instruction Type:Provider Instructions for Treatment How to access health informa tion online Indication:Annual Medicare Physical Start:19-Jun-2015 Instruction Type:Patient Education How to access health informa tion online - Detail Indication:Annual Medicare Physical Start:19-Jun-2015 Instruction Type:Patient Education Patient Instructions Indication:Annual Medicare Physical Start:19-Jun-2015 Instruction Type:Provider Instructions for Treatment How to access health informa tion online Indication:Diabetes mellitus type 2, controlled Start:10-Apr-2015 Instruction Type:Patient Education How to access health informa tion online - Detail Indication:Diabetes mellitus type 2, controlled Start:10-Apr-2015 Instruction Type:Patient Education Patient Instructions Indication:Diabetes mellitus type 2, controlled Start:10-Apr-2015 Instruction Type:Provider Instructions for Treatment Patient Instructions Indication:Diabetes mellitus type 2, controlled Start:09-Jan-2015 Instruction Type:Provider Instructions for Treatment Patient Instructions Indication:Coronary artery disease, non-occlusive Start:10-Oct-2014 Instruction Type:Provider Instructions for Treatment How to access health informa tion online Indication:Diabetes mellitus type 2, uncontrolled, without complications Start:05-Jul-2014 Instruction Type:Patient Education How to access health informa tion online - Detail Indication:Diabetes mellitus type 2, uncontrolled, without complications Start:05-Jul-2014 Instruction Type:Patient Education Patient Instructions Indication:Diabetes mellitus type 2, uncontrolled, without complications Start:05-Jul-2014 Instruction Type:Provider Instructions for Treatment cardiovascular counseling Indication:Coronary artery disease, non-occlusive Start:11-Jun-2014 Instruction Type:Provider Instructions for Treatment How to access health informa tion online Indication:Diabetes mellitus type 2, controlled Start:04-Apr-2014 Instruction Type:Patient Education How to access health informa tion online - Detail Indication:Diabetes mellitus type 2, controlled Start:04-Apr-2014 Instruction Type:Patient Education Patient Instructions Indication:Diabetes mellitus type 2, controlled Start:04-Apr-2014 Instruction Type:Provider Instructions for Treatment Patient Instructions Indication:Diabetes mellitus type 2, controlled Start:03-Jan-2014 Instruction Type:Provider Instructions for Treatment cardiovascular counseling Indication:Coronary artery disease, non-occlusive Start:20-Jun-2013 Instruction Type:Provider Instructions for Treatment Patient Instructions Indication:Diabetes mellitus type 2, controlled Start:20-Jun-2013 Instruction Type:Provider Instructions for Treatment Patient Instructions Indication:COPD, moderate Start:11-Oct-2012 Instruction Type:Provider Instructions for Treatment Patient Instructions Indication:Coronary artery disease, non-occlusive Start:07-Jul-2012 Instruction Type:Provider Instructions for Treatment [facility]; [facility] Work Phone: Instructions* Name Dates Details Patient Instructions Indication:BMI 26.0-26.9,adult Start:21-Jan-2022 Instruction Type:Provider Instructions for Treatment How to Access Health Informa tion Online using Patient Portal and [employer]rd [employer] Apps Indication:BMI 26.0-26.9,adult Start:21-Jan-2022 Instruction Type:Patient Education Patient Instructions Indication:Smoker Start:16-Oct-2021 Instruction Type:Provider Instructions for Treatment How to Access Health Informa tion Online using Patient Portal and [employer]rd [employer] Apps Indication:Smoker Start:16-Oct-2021 Instruction Type:Patient Education cardiovascular counseling Indication:Coronary artery disease, non-occlusive Start:11-Aug-2020 Instruction Type:Provider Instructions for Treatment How to access health informa tion online Indication:BMI 26.0-26.9,adult Start:11-Aug-2020 Instruction Type:Patient Education How to access health informa tion online - Detail Indication:BMI 26.0-26.9,adult Start:11-Aug-2020 Instruction Type:Patient Education Patient Instructions Indication:BMI 26.0-26.9,adult Start:11-Aug-2020 Instruction Type:Provider Instructions for Treatment How to access health informa tion online Indication:Smoker Start:26-Jun-2020 Instruction Type:Patient Education How to access health informa tion online - Detail Indication:Smoker Start:26-Jun-2020 Instruction Type:Patient Education Patient Instructions Indication:Smoker Start:26-Jun-2020 Instruction Type:Provider Instructions for Treatment How to access health informa tion online Indication:BMI 26.0-26.9,adult Start:25-Feb-2020 Instruction Type:Patient Education How to access health informa tion online - Detail Indication:BMI 26.0-26.9,adult Start:25-Feb-2020 Instruction Type:Patient Education Patient Instructions Indication:BMI 26.0-26.9,adult Start:25-Feb-2020 Instruction Type:Provider Instructions for Treatment How to access health informa tion online Indication:Coronary artery disease, non-occlusive Start:29-Aug-2019 Instruction Type:Patient Education How to access health informa tion online - Detail Indication:Coronary artery disease, non-occlusive Start:29-Aug-2019 Instruction Type:Patient Education Patient Instructions Indication:Coronary artery disease, non-occlusive Start:29-Aug-2019 Instruction Type:Provider Instructions for Treatment cardiovascular counseling Indication:Coronary artery disease, non-occlusive Start:08-Aug-2019 Instruction Type:Provider Instructions for Treatment How to access health informa tion online Indication:Cigar smoker Start:08-Aug-2019 Instruction Type:Patient Education How to access health informa tion online - Detail Indication:Cigar smoker Start:08-Aug-2019 Instruction Type:Patient Education Patient Instructions Indication:Cigar smoker Start:08-Aug-2019 Instruction Type:Provider Instructions for Treatment cardiovascular counseling Indication:Coronary artery disease, non-occlusive Start:25-Jul-2018 Instruction Type:Provider Instructions for Treatment How to access health informa tion online Indication:BMI 27.0-27.9,adult Start:25-Jul-2018 Instruction Type:Patient Education How to access health informa tion online - Detail Indication:BMI 27.0-27.9,adult Start:25-Jul-2018 Instruction Type:Patient Education Patient Instructions Indication:BMI 27.0-27.9,adult Start:25-Jul-2018 Instruction Type:Provider Instructions for Treatment How to access health informa tion online Indication:Body mass index 26.0-26.9, adult Start:17-May-2018 Instruction Type:Patient Education How to access health informa tion online - Detail Indication:Body mass index 26.0-26.9, adult Start:17-May-2018 Instruction Type:Patient Education Patient Instructions Indication:Body mass index 26.0-26.9, adult Start:17-May-2018 Instruction Type:Provider Instructions for Treatment How to access health informa tion online Indication:Tobacco Use Start:05-Apr-2018 Instruction Type:Patient Education How to access health informa tion online - Detail Indication:Tobacco Use Start:05-Apr-2018 Instruction Type:Patient Education Patient Instructions Indication:Tobacco Use Start:05-Apr-2018 Instruction Type:Provider Instructions for Treatment How to access health informa tion online Indication:Body mass index 26.0-26.9, adult Start:14-Feb-2018 Instruction Type:Patient Education How to access health informa tion online - Detail Indication:Body mass index 26.0-26.9, adult Start:14-Feb-2018 Instruction Type:Patient Education Patient Instructions Indication:Body mass index 26.0-26.9, adult Start:14-Feb-2018 Instruction Type:Provider Instructions for Treatment How to access health informa tion online Indication:Diabetes mellitus type 2, uncontrolled, without complications Start:08-Nov-2017 Instruction Type:Patient Education How to access health informa tion online - Detail Indication:Diabetes mellitus type 2, uncontrolled, without complications Start:08-Nov-2017 Instruction Type:Patient Education Patient Instructions Indication:Diabetes mellitus type 2, uncontrolled, without complications Start:08-Nov-2017 Instruction Type:Provider Instructions for Treatment cardiovascular counseling Indication:Coronary artery disease, non-occlusive Start:27-Jun-2017 Instruction Type:Provider Instructions for Treatment How to access health informa tion online Indication:Tobacco Use Start:27-Jun-2017 Instruction Type:Patient Education How to access health informa tion online - Detail Indication:Tobacco Use Start:27-Jun-2017 Instruction Type:Patient Education Patient Instructions Indication:Tobacco Use Start:27-Jun-2017 Instruction Type:Provider Instructions for Treatment How to access health informa tion online Indication:Diabetes mellitus type 2, controlled Start:05-May-2017 Instruction Type:Patient Education How to access health informa tion online - Detail Indication:Diabetes mellitus type 2, controlled Start:05-May-2017 Instruction Type:Patient Education Patient Instructions Indication:Diabetes mellitus type 2, controlled Start:05-May-2017 Instruction Type:Provider Instructions for Treatment How to access health informa tion online Indication:Diabetes mellitus type 2, controlled Start:23-Dec-2016 Instruction Type:Patient Education How to access health informa tion online - Detail Indication:Diabetes mellitus type 2, controlled Start:23-Dec-2016 Instruction Type:Patient Education Patient Instructions Indication:Diabetes mellitus type 2, controlled Start:23-Dec-2016 Instruction Type:Provider Instructions for Treatment Patient Instructions Indication:Annual Medicare Physical Start:24-Jun-2016 Instruction Type:Provider Instructions for Treatment cardiovascular counseling Indication:Coronary artery disease, non-occlusive Start:24-Jun-2016 Instruction Type:Provider Instructions for Treatment How to access health informa tion online Indication:Diabetes mellitus type 2, controlled Start:17-Jun-2016 Instruction Type:Patient Education How to access health informa tion online - Detail Indication:Diabetes mellitus type 2, controlled Start:17-Jun-2016 Instruction Type:Patient Education Patient Instructions Indication:Diabetes mellitus type 2, controlled Start:17-Jun-2016 Instruction Type:Provider Instructions for Treatment How to access health informa tion online Indication:Diabetes mellitus type 2, controlled Start:13-Feb-2016 Instruction Type:Patient Education How to access health informa tion online - Detail Indication:Diabetes mellitus type 2, controlled Start:13-Feb-2016 Instruction Type:Patient Education Patient Instructions Indication:Diabetes mellitus type 2, controlled Start:13-Feb-2016 Instruction Type:Provider Instructions for Treatment How to access health informa tion online Indication:Diabetes mellitus type 2, controlled Start:12-Nov-2015 Instruction Type:Patient Education How to access health informa tion online - Detail Indication:Diabetes mellitus type 2, controlled Start:12-Nov-2015 Instruction Type:Patient Education Patient Instructions Indication:Diabetes mellitus type 2, controlled Start:12-Nov-2015 Instruction Type:Provider Instructions for Treatment Patient Instructions Indication:COPD, moderate Start:17-Jul-2015 Instruction Type:Provider Instructions for Treatment How to access health informa tion online Indication:Diabetes mellitus type 2, uncontrolled, without complications Start:08-Jul-2015 Instruction Type:Patient Education How to access health informa tion online - Detail Indication:Diabetes mellitus type 2, uncontrolled, without complications Start:08-Jul-2015 Instruction Type:Patient Education Patient Instructions Indication:Diabetes mellitus type 2, uncontrolled, without complications Start:08-Jul-2015 Instruction Type:Provider Instructions for Treatment cardiovascular counseling Indication:Coronary artery disease, non-occlusive Start:19-Jun-2015 Instruction Type:Provider Instructions for Treatment How to access health informa tion online Indication:Annual Medicare Physical Start:19-Jun-2015 Instruction Type:Patient Education How to access health informa tion online - Detail Indication:Annual Medicare Physical Start:19-Jun-2015 Instruction Type:Patient Education Patient Instructions Indication:Annual Medicare Physical Start:19-Jun-2015 Instruction Type:Provider Instructions for Treatment How to access health informa tion online Indication:Diabetes mellitus type 2, controlled Start:10-Apr-2015 Instruction Type:Patient Education How to access health informa tion online - Detail Indication:Diabetes mellitus type 2, controlled Start:10-Apr-2015 Instruction Type:Patient Education Patient Instructions Indication:Diabetes mellitus type 2, controlled Start:10-Apr-2015 Instruction Type:Provider Instructions for Treatment Patient Instructions Indication:Diabetes mellitus type 2, controlled Start:09-Jan-2015 Instruction Type:Provider Instructions for Treatment Patient Instructions Indication:Coronary artery disease, non-occlusive Start:10-Oct-2014 Instruction Type:Provider Instructions for Treatment How to access health informa tion online Indication:Diabetes mellitus type 2, uncontrolled, without complications Start:05-Jul-2014 Instruction Type:Patient Education How to access health informa tion online - Detail Indication:Diabetes mellitus type 2, uncontrolled, without complications Start:05-Jul-2014 Instruction Type:Patient Education Patient Instructions Indication:Diabetes mellitus type 2, uncontrolled, without complications Start:05-Jul-2014 Instruction Type:Provider Instructions for Treatment cardiovascular counseling Indication:Coronary artery disease, non-occlusive Start:11-Jun-2014 Instruction Type:Provider Instructions for Treatment How to access health informa tion online Indication:Diabetes mellitus type 2, controlled Start:04-Apr-2014 Instruction Type:Patient Education How to access health informa tion online - Detail Indication:Diabetes mellitus type 2, controlled Start:04-Apr-2014 Instruction Type:Patient Education Patient Instructions Indication:Diabetes mellitus type 2, controlled Start:04-Apr-2014 Instruction Type:Provider Instructions for Treatment Patient Instructions Indication:Diabetes mellitus type 2, controlled Start:03-Jan-2014 Instruction Type:Provider Instructions for Treatment cardiovascular counseling Indication:Coronary artery disease, non-occlusive Start:20-Jun-2013 Instruction Type:Provider Instructions for Treatment Patient Instructions Indication:Diabetes mellitus type 2, controlled Start:20-Jun-2013 Instruction Type:Provider Instructions for Treatment Patient Instructions Indication:COPD, moderate Start:11-Oct-2012 Instruction Type:Provider Instructions for Treatment Patient Instructions Indication:Coronary artery disease, non-occlusive Start:07-Jul-2012 Instruction Type:Provider Instructions for Treatment [facility]; [facility] Work Phone: Instructions* Name Dates Details Patient Instructions Indication:Diabetes mellitus type 2, controlled Start:07-Jun-2022 Instruction Type:Provider Instructions for Treatment How to Access Health Informa tion Online using Patient Portal and [employer] Apps Indication:Diabetes mellitus type 2, controlled Start:07-Jun-2022 Instruction Type:Patient Education Patient Instructions Indication:BMI 26.0-26.9,adult Start:21-Jan-2022 Instruction Type:Provider Instructions for Treatment How to Access Health Informa tion Online using Patient Portal and [employer]rd [employer] Apps Indication:BMI 26.0-26.9,adult Start:21-Jan-2022 Instruction Type:Patient Education Patient Instructions Indication:Smoker Start:16-Oct-2021 Instruction Type:Provider Instructions for Treatment How to Access Health Informa tion Online using Patient Portal and [employer] Apps Indication:Smoker Start:16-Oct-2021 Instruction Type:Patient Education cardiovascular counseling Indication:Coronary artery disease, non-occlusive Start:11-Aug-2020 Instruction Type:Provider Instructions for Treatment How to access health informa tion online Indication:BMI 26.0-26.9,adult Start:11-Aug-2020 Instruction Type:Patient Education How to access health informa tion online - Detail Indication:BMI 26.0-26.9,adult Start:11-Aug-2020 Instruction Type:Patient Education Patient Instructions Indication:BMI 26.0-26.9,adult Start:11-Aug-2020 Instruction Type:Provider Instructions for Treatment How to access health informa tion online Indication:Smoker Start:26-Jun-2020 Instruction Type:Patient Education How to access health informa tion online - Detail Indication:Smoker Start:26-Jun-2020 Instruction Type:Patient Education Patient Instructions Indication:Smoker Start:26-Jun-2020 Instruction Type:Provider Instructions for Treatment How to access health informa tion online Indication:BMI 26.0-26.9,adult Start:25-Feb-2020 Instruction Type:Patient Education How to access health informa tion online - Detail Indication:BMI 26.0-26.9,adult Start:25-Feb-2020 Instruction Type:Patient Education Patient Instructions Indication:BMI 26.0-26.9,adult Start:25-Feb-2020 Instruction Type:Provider Instructions for Treatment How to access health informa tion online Indication:Coronary artery disease, non-occlusive Start:29-Aug-2019 Instruction Type:Patient Education How to access health informa tion online - Detail Indication:Coronary artery disease, non-occlusive Start:29-Aug-2019 Instruction Type:Patient Education Patient Instructions Indication:Coronary artery disease, non-occlusive Start:29-Aug-2019 Instruction Type:Provider Instructions for Treatment cardiovascular counseling Indication:Coronary artery disease, non-occlusive Start:08-Aug-2019 Instruction Type:Provider Instructions for Treatment How to access health informa tion online Indication:Cigar smoker Start:08-Aug-2019 Instruction Type:Patient Education How to access health informa tion online - Detail Indication:Cigar smoker Start:08-Aug-2019 Instruction Type:Patient Education Patient Instructions Indication:Cigar smoker Start:08-Aug-2019 Instruction Type:Provider Instructions for Treatment cardiovascular counseling Indication:Coronary artery disease, non-occlusive Start:25-Jul-2018 Instruction Type:Provider Instructions for Treatment How to access health informa tion online Indication:BMI 27.0-27.9,adult Start:25-Jul-2018 Instruction Type:Patient Education How to access health informa tion online - Detail Indication:BMI 27.0-27.9,adult Start:25-Jul-2018 Instruction Type:Patient Education Patient Instructions Indication:BMI 27.0-27.9,adult Start:25-Jul-2018 Instruction Type:Provider Instructions for Treatment How to access health informa tion online Indication:Body mass index 26.0-26.9, adult Start:17-May-2018 Instruction Type:Patient Education How to access health informa tion online - Detail Indication:Body mass index 26.0-26.9, adult Start:17-May-2018 Instruction Type:Patient Education Patient Instructions Indication:Body mass index 26.0-26.9, adult Start:17-May-2018 Instruction Type:Provider Instructions for Treatment How to access health informa tion online Indication:Tobacco Use Start:05-Apr-2018 Instruction Type:Patient Education How to access health informa tion online - Detail Indication:Tobacco Use Start:05-Apr-2018 Instruction Type:Patient Education Patient Instructions Indication:Tobacco Use Start:05-Apr-2018 Instruction Type:Provider Instructions for Treatment How to access health informa tion online Indication:Body mass index 26.0-26.9, adult Start:14-Feb-2018 Instruction Type:Patient Education How to access health informa tion online - Detail Indication:Body mass index 26.0-26.9, adult Start:14-Feb-2018 Instruction Type:Patient Education Patient Instructions Indication:Body mass index 26.0-26.9, adult Start:14-Feb-2018 Instruction Type:Provider Instructions for Treatment How to access health informa tion online Indication:Diabetes mellitus type 2, uncontrolled, without complications Start:08-Nov-2017 Instruction Type:Patient Education How to access health informa tion online - Detail Indication:Diabetes mellitus type 2, uncontrolled, without complications Start:08-Nov-2017 Instruction Type:Patient Education Patient Instructions Indication:Diabetes mellitus type 2, uncontrolled, without complications Start:08-Nov-2017 Instruction Type:Provider Instructions for Treatment cardiovascular counseling Indication:Coronary artery disease, non-occlusive Start:27-Jun-2017 Instruction Type:Provider Instructions for Treatment How to access health informa tion online Indication:Tobacco Use Start:27-Jun-2017 Instruction Type:Patient Education How to access health informa tion online - Detail Indication:Tobacco Use Start:27-Jun-2017 Instruction Type:Patient Education Patient Instructions Indication:Tobacco Use Start:27-Jun-2017 Instruction Type:Provider Instructions for Treatment How to access health informa tion online Indication:Diabetes mellitus type 2, controlled Start:05-May-2017 Instruction Type:Patient Education How to access health informa tion online - Detail Indication:Diabetes mellitus type 2, controlled Start:05-May-2017 Instruction Type:Patient Education Patient Instructions Indication:Diabetes mellitus type 2, controlled Start:05-May-2017 Instruction Type:Provider Instructions for Treatment How to access health informa tion online Indication:Diabetes mellitus type 2, controlled Start:23-Dec-2016 Instruction Type:Patient Education How to access health informa tion online - Detail Indication:Diabetes mellitus type 2, controlled Start:23-Dec-2016 Instruction Type:Patient Education Patient Instructions Indication:Diabetes mellitus type 2, controlled Start:23-Dec-2016 Instruction Type:Provider Instructions for Treatment Patient Instructions Indication:Annual Medicare Physical Start:24-Jun-2016 Instruction Type:Provider Instructions for Treatment cardiovascular counseling Indication:Coronary artery disease, non-occlusive Start:24-Jun-2016 Instruction Type:Provider Instructions for Treatment How to access health informa tion online Indication:Diabetes mellitus type 2, controlled Start:17-Jun-2016 Instruction Type:Patient Education How to access health informa tion online - Detail Indication:Diabetes mellitus type 2, controlled Start:17-Jun-2016 Instruction Type:Patient Education Patient Instructions Indication:Diabetes mellitus type 2, controlled Start:17-Jun-2016 Instruction Type:Provider Instructions for Treatment How to access health informa tion online Indication:Diabetes mellitus type 2, controlled Start:13-Feb-2016 Instruction Type:Patient Education How to access health informa tion online - Detail Indication:Diabetes mellitus type 2, controlled Start:13-Feb-2016 Instruction Type:Patient Education Patient Instructions Indication:Diabetes mellitus type 2, controlled Start:13-Feb-2016 Instruction Type:Provider Instructions for Treatment How to access health informa tion online Indication:Diabetes mellitus type 2, controlled Start:12-Nov-2015 Instruction Type:Patient Education How to access health informa tion online - Detail Indication:Diabetes mellitus type 2, controlled Start:12-Nov-2015 Instruction Type:Patient Education Patient Instructions Indication:Diabetes mellitus type 2, controlled Start:12-Nov-2015 Instruction Type:Provider Instructions for Treatment Patient Instructions Indication:COPD, moderate Start:17-Jul-2015 Instruction Type:Provider Instructions for Treatment How to access health informa tion online Indication:Diabetes mellitus type 2, uncontrolled, without complications Start:08-Jul-2015 Instruction Type:Patient Education How to access health informa tion online - Detail Indication:Diabetes mellitus type 2, uncontrolled, without complications Start:08-Jul-2015 Instruction Type:Patient Education Patient Instructions Indication:Diabetes mellitus type 2, uncontrolled, without complications Start:08-Jul-2015 Instruction Type:Provider Instructions for Treatment cardiovascular counseling Indication:Coronary artery disease, non-occlusive Start:19-Jun-2015 Instruction Type:Provider Instructions for Treatment How to access health informa tion online Indication:Annual Medicare Physical Start:19-Jun-2015 Instruction Type:Patient Education How to access health informa tion online - Detail Indication:Annual Medicare Physical Start:19-Jun-2015 Instruction Type:Patient Education Patient Instructions Indication:Annual Medicare Physical Start:19-Jun-2015 Instruction Type:Provider Instructions for Treatment How to access health informa tion online Indication:Diabetes mellitus type 2, controlled Start:10-Apr-2015 Instruction Type:Patient Education How to access health informa tion online - Detail Indication:Diabetes mellitus type 2, controlled Start:10-Apr-2015 Instruction Type:Patient Education Patient Instructions Indication:Diabetes mellitus type 2, controlled Start:10-Apr-2015 Instruction Type:Provider Instructions for Treatment Patient Instructions Indication:Diabetes mellitus type 2, controlled Start:09-Jan-2015 Instruction Type:Provider Instructions for Treatment Patient Instructions Indication:Coronary artery disease, non-occlusive Start:10-Oct-2014 Instruction Type:Provider Instructions for Treatment How to access health informa tion online Indication:Diabetes mellitus type 2, uncontrolled, without complications Start:05-Jul-2014 Instruction Type:Patient Education How to access health informa tion online - Detail Indication:Diabetes mellitus type 2, uncontrolled, without complications Start:05-Jul-2014 Instruction Type:Patient Education Patient Instructions Indication:Diabetes mellitus type 2, uncontrolled, without complications Start:05-Jul-2014 Instruction Type:Provider Instructions for Treatment cardiovascular counseling Indication:Coronary artery disease, non-occlusive Start:11-Jun-2014 Instruction Type:Provider Instructions for Treatment How to access health informa tion online Indication:Diabetes mellitus type 2, controlled Start:04-Apr-2014 Instruction Type:Patient Education How to access health informa tion online - Detail Indication:Diabetes mellitus type 2, controlled Start:04-Apr-2014 Instruction Type:Patient Education Patient Instructions Indication:Diabetes mellitus type 2, controlled Start:04-Apr-2014 Instruction Type:Provider Instructions for Treatment Patient Instructions Indication:Diabetes mellitus type 2, controlled Start:03-Jan-2014 Instruction Type:Provider Instructions for Treatment cardiovascular counseling Indication:Coronary artery disease, non-occlusive Start:20-Jun-2013 Instruction Type:Provider Instructions for Treatment Patient Instructions Indication:Diabetes mellitus type 2, controlled Start:20-Jun-2013 Instruction Type:Provider Instructions for Treatment Patient Instructions Indication:COPD, moderate Start:11-Oct-2012 Instruction Type:Provider Instructions for Treatment Patient Instructions Indication:Coronary artery disease, non-occlusive Start:07-Jul-2012 Instruction Type:Provider Instructions for Treatment [facility]; [facility] Work Phone: Instructions* Name Dates Details Patient Instructions Indication:BMI 25.0-25.9,adult Start:16-Jul-2022 Instruction Type:Provider Instructions for Treatment How to Access Health Informa tion Online using Patient Portal and [employer]rd [employer] Apps Indication:BMI 25.0-25.9,adult Start:16-Jul-2022 Instruction Type:Patient Education Patient Instructions Indication:Diabetes mellitus type 2, controlled Start:07-Jun-2022 Instruction Type:Provider Instructions for Treatment How to Access Health Informa tion Online using Patient Portal and [employer]rd [employer] Apps Indication:Diabetes mellitus type 2, controlled Start:07-Jun-2022 Instruction Type:Patient Education Patient Instructions Indication:BMI 26.0-26.9,adult Start:21-Jan-2022 Instruction Type:Provider Instructions for Treatment How to Access Health Informa tion Online using Patient Portal and [employer]rd [employer] Apps Indication:BMI 26.0-26.9,adult Start:21-Jan-2022 Instruction Type:Patient Education Patient Instructions Indication:Smoker Start:16-Oct-2021 Instruction Type:Provider Instructions for Treatment How to Access Health Informa tion Online using Patient Portal and [employer]rd [employer] Apps Indication:Smoker Start:16-Oct-2021 Instruction Type:Patient Education cardiovascular counseling Indication:Coronary artery disease, non-occlusive Start:11-Aug-2020 Instruction Type:Provider Instructions for Treatment How to access health informa tion online Indication:BMI 26.0-26.9,adult Start:11-Aug-2020 Instruction Type:Patient Education How to access health informa tion online - Detail Indication:BMI 26.0-26.9,adult Start:11-Aug-2020 Instruction Type:Patient Education Patient Instructions Indication:BMI 26.0-26.9,adult Start:11-Aug-2020 Instruction Type:Provider Instructions for Treatment How to access health informa tion online Indication:Smoker Start:26-Jun-2020 Instruction Type:Patient Education How to access health informa tion online - Detail Indication:Smoker Start:26-Jun-2020 Instruction Type:Patient Education Patient Instructions Indication:Smoker Start:26-Jun-2020 Instruction Type:Provider Instructions for Treatment How to access health informa tion online Indication:BMI 26.0-26.9,adult Start:25-Feb-2020 Instruction Type:Patient Education How to access health informa tion online - Detail Indication:BMI 26.0-26.9,adult Start:25-Feb-2020 Instruction Type:Patient Education Patient Instructions Indication:BMI 26.0-26.9,adult Start:25-Feb-2020 Instruction Type:Provider Instructions for Treatment How to access health informa tion online Indication:Coronary artery disease, non-occlusive Start:29-Aug-2019 Instruction Type:Patient Education How to access health informa tion online - Detail Indication:Coronary artery disease, non-occlusive Start:29-Aug-2019 Instruction Type:Patient Education Patient Instructions Indication:Coronary artery disease, non-occlusive Start:29-Aug-2019 Instruction Type:Provider Instructions for Treatment cardiovascular counseling Indication:Coronary artery disease, non-occlusive Start:08-Aug-2019 Instruction Type:Provider Instructions for Treatment How to access health informa tion online Indication:Cigar smoker Start:08-Aug-2019 Instruction Type:Patient Education How to access health informa tion online - Detail Indication:Cigar smoker Start:08-Aug-2019 Instruction Type:Patient Education Patient Instructions Indication:Cigar smoker Start:08-Aug-2019 Instruction Type:Provider Instructions for Treatment cardiovascular counseling Indication:Coronary artery disease, non-occlusive Start:25-Jul-2018 Instruction Type:Provider Instructions for Treatment How to access health informa tion online Indication:BMI 27.0-27.9,adult Start:25-Jul-2018 Instruction Type:Patient Education How to access health informa tion online - Detail Indication:BMI 27.0-27.9,adult Start:25-Jul-2018 Instruction Type:Patient Education Patient Instructions Indication:BMI 27.0-27.9,adult Start:25-Jul-2018 Instruction Type:Provider Instructions for Treatment How to access health informa tion online Indication:Body mass index 26.0-26.9, adult Start:17-May-2018 Instruction Type:Patient Education How to access health informa tion online - Detail Indication:Body mass index 26.0-26.9, adult Start:17-May-2018 Instruction Type:Patient Education Patient Instructions Indication:Body mass index 26.0-26.9, adult Start:17-May-2018 Instruction Type:Provider Instructions for Treatment How to access health informa tion online Indication:Tobacco Use Start:05-Apr-2018 Instruction Type:Patient Education How to access health informa tion online - Detail Indication:Tobacco Use Start:05-Apr-2018 Instruction Type:Patient Education Patient Instructions Indication:Tobacco Use Start:05-Apr-2018 Instruction Type:Provider Instructions for Treatment How to access health informa tion online Indication:Body mass index 26.0-26.9, adult Start:14-Feb-2018 Instruction Type:Patient Education How to access health informa tion online - Detail Indication:Body mass index 26.0-26.9, adult Start:14-Feb-2018 Instruction Type:Patient Education Patient Instructions Indication:Body mass index 26.0-26.9, adult Start:14-Feb-2018 Instruction Type:Provider Instructions for Treatment How to access health informa tion online Indication:Diabetes mellitus type 2, uncontrolled, without complications Start:08-Nov-2017 Instruction Type:Patient Education How to access health informa tion online - Detail Indication:Diabetes mellitus type 2, uncontrolled, without complications Start:08-Nov-2017 Instruction Type:Patient Education Patient Instructions Indication:Diabetes mellitus type 2, uncontrolled, without complications Start:08-Nov-2017 Instruction Type:Provider Instructions for Treatment cardiovascular counseling Indication:Coronary artery disease, non-occlusive Start:27-Jun-2017 Instruction Type:Provider Instructions for Treatment How to access health informa tion online Indication:Tobacco Use Start:27-Jun-2017 Instruction Type:Patient Education How to access health informa tion online - Detail Indication:Tobacco Use Start:27-Jun-2017 Instruction Type:Patient Education Patient Instructions Indication:Tobacco Use Start:27-Jun-2017 Instruction Type:Provider Instructions for Treatment How to access health informa tion online Indication:Diabetes mellitus type 2, controlled Start:05-May-2017 Instruction Type:Patient Education How to access health informa tion online - Detail Indication:Diabetes mellitus type 2, controlled Start:05-May-2017 Instruction Type:Patient Education Patient Instructions Indication:Diabetes mellitus type 2, controlled Start:05-May-2017 Instruction Type:Provider Instructions for Treatment How to access health informa tion online Indication:Diabetes mellitus type 2, controlled Start:23-Dec-2016 Instruction Type:Patient Education How to access health informa tion online - Detail Indication:Diabetes mellitus type 2, controlled Start:23-Dec-2016 Instruction Type:Patient Education Patient Instructions Indication:Diabetes mellitus type 2, controlled Start:23-Dec-2016 Instruction Type:Provider Instructions for Treatment Patient Instructions Indication:Annual Medicare Physical Start:24-Jun-2016 Instruction Type:Provider Instructions for Treatment cardiovascular counseling Indication:Coronary artery disease, non-occlusive Start:24-Jun-2016 Instruction Type:Provider Instructions for Treatment How to access health informa tion online Indication:Diabetes mellitus type 2, controlled Start:17-Jun-2016 Instruction Type:Patient Education How to access health informa tion online - Detail Indication:Diabetes mellitus type 2, controlled Start:17-Jun-2016 Instruction Type:Patient Education Patient Instructions Indication:Diabetes mellitus type 2, controlled Start:17-Jun-2016 Instruction Type:Provider Instructions for Treatment How to access health informa tion online Indication:Diabetes mellitus type 2, controlled Start:13-Feb-2016 Instruction Type:Patient Education How to access health informa tion online - Detail Indication:Diabetes mellitus type 2, controlled Start:13-Feb-2016 Instruction Type:Patient Education Patient Instructions Indication:Diabetes mellitus type 2, controlled Start:13-Feb-2016 Instruction Type:Provider Instructions for Treatment How to access health informa tion online Indication:Diabetes mellitus type 2, controlled Start:12-Nov-2015 Instruction Type:Patient Education How to access health informa tion online - Detail Indication:Diabetes mellitus type 2, controlled Start:12-Nov-2015 Instruction Type:Patient Education Patient Instructions Indication:Diabetes mellitus type 2, controlled Start:12-Nov-2015 Instruction Type:Provider Instructions for Treatment Patient Instructions Indication:COPD, moderate Start:17-Jul-2015 Instruction Type:Provider Instructions for Treatment How to access health informa tion online Indication:Diabetes mellitus type 2, uncontrolled, without complications Start:08-Jul-2015 Instruction Type:Patient Education How to access health informa tion online - Detail Indication:Diabetes mellitus type 2, uncontrolled, without complications Start:08-Jul-2015 Instruction Type:Patient Education Patient Instructions Indication:Diabetes mellitus type 2, uncontrolled, without complications Start:08-Jul-2015 Instruction Type:Provider Instructions for Treatment cardiovascular counseling Indication:Coronary artery disease, non-occlusive Start:19-Jun-2015 Instruction Type:Provider Instructions for Treatment How to access health informa tion online Indication:Annual Medicare Physical Start:19-Jun-2015 Instruction Type:Patient Education How to access health informa tion online - Detail Indication:Annual Medicare Physical Start:19-Jun-2015 Instruction Type:Patient Education Patient Instructions Indication:Annual Medicare Physical Start:19-Jun-2015 Instruction Type:Provider Instructions for Treatment How to access health informa tion online Indication:Diabetes mellitus type 2, controlled Start:10-Apr-2015 Instruction Type:Patient Education How to access health informa tion online - Detail Indication:Diabetes mellitus type 2, controlled Start:10-Apr-2015 Instruction Type:Patient Education Patient Instructions Indication:Diabetes mellitus type 2, controlled Start:10-Apr-2015 Instruction Type:Provider Instructions for Treatment Patient Instructions Indication:Diabetes mellitus type 2, controlled Start:09-Jan-2015 Instruction Type:Provider Instructions for Treatment Patient Instructions Indication:Coronary artery disease, non-occlusive Start:10-Oct-2014 Instruction Type:Provider Instructions for Treatment How to access health informa tion online Indication:Diabetes mellitus type 2, uncontrolled, without complications Start:05-Jul-2014 Instruction Type:Patient Education How to access health informa tion online - Detail Indication:Diabetes mellitus type 2, uncontrolled, without complications Start:05-Jul-2014 Instruction Type:Patient Education Patient Instructions Indication:Diabetes mellitus type 2, uncontrolled, without complications Start:05-Jul-2014 Instruction Type:Provider Instructions for Treatment cardiovascular counseling Indication:Coronary artery disease, non-occlusive Start:11-Jun-2014 Instruction Type:Provider Instructions for Treatment How to access health informa tion online Indication:Diabetes mellitus type 2, controlled Start:04-Apr-2014 Instruction Type:Patient Education How to access health informa tion online - Detail Indication:Diabetes mellitus type 2, controlled Start:04-Apr-2014 Instruction Type:Patient Education Patient Instructions Indication:Diabetes mellitus type 2, controlled Start:04-Apr-2014 Instruction Type:Provider Instructions for Treatment Patient Instructions Indication:Diabetes mellitus type 2, controlled Start:03-Jan-2014 Instruction Type:Provider Instructions for Treatment cardiovascular counseling Indication:Coronary artery disease, non-occlusive Start:20-Jun-2013 Instruction Type:Provider Instructions for Treatment Patient Instructions Indication:Diabetes mellitus type 2, controlled Start:20-Jun-2013 Instruction Type:Provider Instructions for Treatment Patient Instructions Indication:COPD, moderate Start:11-Oct-2012 Instruction Type:Provider Instructions for Treatment Patient Instructions Indication:Coronary artery disease, non-occlusive Start:07-Jul-2012 Instruction Type:Provider Instructions for Treatment [facility]; [facility] Work Phone: Instructions* Name Dates Details cardiovascular counseling Indication:Coronary artery disease, non-occlusive Start:16-Jul-2022 Instruction Type:Provider Instructions for Treatment Patient Instructions Indication:BMI 25.0-25.9,adult Start:16-Jul-2022 Instruction Type:Provider Instructions for Treatment How to Access Health Informa tion Online using Patient Portal and [employer]rd [employer] Apps Indication:BMI 25.0-25.9,adult Start:16-Jul-2022 Instruction Type:Patient Education Patient Instructions Indication:Diabetes mellitus type 2, controlled Start:07-Jun-2022 Instruction Type:Provider Instructions for Treatment How to Access Health Informa tion Online using Patient Portal and [employer]rd [employer] Apps Indication:Diabetes mellitus type 2, controlled Start:07-Jun-2022 Instruction Type:Patient Education Patient Instructions Indication:BMI 26.0-26.9,adult Start:21-Jan-2022 Instruction Type:Provider Instructions for Treatment How to Access Health Informa tion Online using Patient Portal and [employer]rd [employer] Apps Indication:BMI 26.0-26.9,adult Start:21-Jan-2022 Instruction Type:Patient Education Patient Instructions Indication:Smoker Start:16-Oct-2021 Instruction Type:Provider Instructions for Treatment How to Access Health Informa tion Online using Patient Portal and [employer]rd [employer] Apps Indication:Smoker Start:16-Oct-2021 Instruction Type:Patient Education cardiovascular counseling Indication:Coronary artery disease, non-occlusive Start:11-Aug-2020 Instruction Type:Provider Instructions for Treatment How to access health informa tion online Indication:BMI 26.0-26.9,adult Start:11-Aug-2020 Instruction Type:Patient Education How to access health informa tion online - Detail Indication:BMI 26.0-26.9,adult Start:11-Aug-2020 Instruction Type:Patient Education Patient Instructions Indication:BMI 26.0-26.9,adult Start:11-Aug-2020 Instruction Type:Provider Instructions for Treatment How to access health informa tion online Indication:Smoker Start:26-Jun-2020 Instruction Type:Patient Education How to access health informa tion online - Detail Indication:Smoker Start:26-Jun-2020 Instruction Type:Patient Education Patient Instructions Indication:Smoker Start:26-Jun-2020 Instruction Type:Provider Instructions for Treatment How to access health informa tion online Indication:BMI 26.0-26.9,adult Start:25-Feb-2020 Instruction Type:Patient Education How to access health informa tion online - Detail Indication:BMI 26.0-26.9,adult Start:25-Feb-2020 Instruction Type:Patient Education Patient Instructions Indication:BMI 26.0-26.9,adult Start:25-Feb-2020 Instruction Type:Provider Instructions for Treatment How to access health informa tion online Indication:Coronary artery disease, non-occlusive Start:29-Aug-2019 Instruction Type:Patient Education How to access health informa tion online - Detail Indication:Coronary artery disease, non-occlusive Start:29-Aug-2019 Instruction Type:Patient Education Patient Instructions Indication:Coronary artery disease, non-occlusive Start:29-Aug-2019 Instruction Type:Provider Instructions for Treatment cardiovascular counseling Indication:Coronary artery disease, non-occlusive Start:08-Aug-2019 Instruction Type:Provider Instructions for Treatment How to access health informa tion online Indication:Cigar smoker Start:08-Aug-2019 Instruction Type:Patient Education How to access health informa tion online - Detail Indication:Cigar smoker Start:08-Aug-2019 Instruction Type:Patient Education Patient Instructions Indication:Cigar smoker Start:08-Aug-2019 Instruction Type:Provider Instructions for Treatment cardiovascular counseling Indication:Coronary artery disease, non-occlusive Start:25-Jul-2018 Instruction Type:Provider Instructions for Treatment How to access health informa tion online Indication:BMI 27.0-27.9,adult Start:25-Jul-2018 Instruction Type:Patient Education How to access health informa tion online - Detail Indication:BMI 27.0-27.9,adult Start:25-Jul-2018 Instruction Type:Patient Education Patient Instructions Indication:BMI 27.0-27.9,adult Start:25-Jul-2018 Instruction Type:Provider Instructions for Treatment How to access health informa tion online Indication:Body mass index 26.0-26.9, adult Start:17-May-2018 Instruction Type:Patient Education How to access health informa tion online - Detail Indication:Body mass index 26.0-26.9, adult Start:17-May-2018 Instruction Type:Patient Education Patient Instructions Indication:Body mass index 26.0-26.9, adult Start:17-May-2018 Instruction Type:Provider Instructions for Treatment How to access health informa tion online Indication:Tobacco Use Start:05-Apr-2018 Instruction Type:Patient Education How to access health informa tion online - Detail Indication:Tobacco Use Start:05-Apr-2018 Instruction Type:Patient Education Patient Instructions Indication:Tobacco Use Start:05-Apr-2018 Instruction Type:Provider Instructions for Treatment How to access health informa tion online Indication:Body mass index 26.0-26.9, adult Start:14-Feb-2018 Instruction Type:Patient Education How to access health informa tion online - Detail Indication:Body mass index 26.0-26.9, adult Start:14-Feb-2018 Instruction Type:Patient Education Patient Instructions Indication:Body mass index 26.0-26.9, adult Start:14-Feb-2018 Instruction Type:Provider Instructions for Treatment How to access health informa tion online Indication:Diabetes mellitus type 2, uncontrolled, without complications Start:08-Nov-2017 Instruction Type:Patient Education How to access health informa tion online - Detail Indication:Diabetes mellitus type 2, uncontrolled, without complications Start:08-Nov-2017 Instruction Type:Patient Education Patient Instructions Indication:Diabetes mellitus type 2, uncontrolled, without complications Start:08-Nov-2017 Instruction Type:Provider Instructions for Treatment cardiovascular counseling Indication:Coronary artery disease, non-occlusive Start:27-Jun-2017 Instruction Type:Provider Instructions for Treatment How to access health informa tion online Indication:Tobacco Use Start:27-Jun-2017 Instruction Type:Patient Education How to access health informa tion online - Detail Indication:Tobacco Use Start:27-Jun-2017 Instruction Type:Patient Education Patient Instructions Indication:Tobacco Use Start:27-Jun-2017 Instruction Type:Provider Instructions for Treatment How to access health informa tion online Indication:Diabetes mellitus type 2, controlled Start:05-May-2017 Instruction Type:Patient Education How to access health informa tion online - Detail Indication:Diabetes mellitus type 2, controlled Start:05-May-2017 Instruction Type:Patient Education Patient Instructions Indication:Diabetes mellitus type 2, controlled Start:05-May-2017 Instruction Type:Provider Instructions for Treatment How to access health informa tion online Indication:Diabetes mellitus type 2, controlled Start:23-Dec-2016 Instruction Type:Patient Education How to access health informa tion online - Detail Indication:Diabetes mellitus type 2, controlled Start:23-Dec-2016 Instruction Type:Patient Education Patient Instructions Indication:Diabetes mellitus type 2, controlled Start:23-Dec-2016 Instruction Type:Provider Instructions for Treatment Patient Instructions Indication:Annual Medicare Physical Start:24-Jun-2016 Instruction Type:Provider Instructions for Treatment cardiovascular counseling Indication:Coronary artery disease, non-occlusive Start:24-Jun-2016 Instruction Type:Provider Instructions for Treatment How to access health informa tion online Indication:Diabetes mellitus type 2, controlled Start:17-Jun-2016 Instruction Type:Patient Education How to access health informa tion online - Detail Indication:Diabetes mellitus type 2, controlled Start:17-Jun-2016 Instruction Type:Patient Education Patient Instructions Indication:Diabetes mellitus type 2, controlled Start:17-Jun-2016 Instruction Type:Provider Instructions for Treatment How to access health informa tion online Indication:Diabetes mellitus type 2, controlled Start:13-Feb-2016 Instruction Type:Patient Education How to access health informa tion online - Detail Indication:Diabetes mellitus type 2, controlled Start:13-Feb-2016 Instruction Type:Patient Education Patient Instructions Indication:Diabetes mellitus type 2, controlled Start:13-Feb-2016 Instruction Type:Provider Instructions for Treatment How to access health informa tion online Indication:Diabetes mellitus type 2, controlled Start:12-Nov-2015 Instruction Type:Patient Education How to access health informa tion online - Detail Indication:Diabetes mellitus type 2, controlled Start:12-Nov-2015 Instruction Type:Patient Education Patient Instructions Indication:Diabetes mellitus type 2, controlled Start:12-Nov-2015 Instruction Type:Provider Instructions for Treatment Patient Instructions Indication:COPD, moderate Start:17-Jul-2015 Instruction Type:Provider Instructions for Treatment How to access health informa tion online Indication:Diabetes mellitus type 2, uncontrolled, without complications Start:08-Jul-2015 Instruction Type:Patient Education How to access health informa tion online - Detail Indication:Diabetes mellitus type 2, uncontrolled, without complications Start:08-Jul-2015 Instruction Type:Patient Education Patient Instructions Indication:Diabetes mellitus type 2, uncontrolled, without complications Start:08-Jul-2015 Instruction Type:Provider Instructions for Treatment cardiovascular counseling Indication:Coronary artery disease, non-occlusive Start:19-Jun-2015 Instruction Type:Provider Instructions for Treatment How to access health informa tion online Indication:Annual Medicare Physical Start:19-Jun-2015 Instruction Type:Patient Education How to access health informa tion online - Detail Indication:Annual Medicare Physical Start:19-Jun-2015 Instruction Type:Patient Education Patient Instructions Indication:Annual Medicare Physical Start:19-Jun-2015 Instruction Type:Provider Instructions for Treatment How to access health informa tion online Indication:Diabetes mellitus type 2, controlled Start:10-Apr-2015 Instruction Type:Patient Education How to access health informa tion online - Detail Indication:Diabetes mellitus type 2, controlled Start:10-Apr-2015 Instruction Type:Patient Education Patient Instructions Indication:Diabetes mellitus type 2, controlled Start:10-Apr-2015 Instruction Type:Provider Instructions for Treatment Patient Instructions Indication:Diabetes mellitus type 2, controlled Start:09-Jan-2015 Instruction Type:Provider Instructions for Treatment Patient Instructions Indication:Coronary artery disease, non-occlusive Start:10-Oct-2014 Instruction Type:Provider Instructions for Treatment How to access health informa tion online Indication:Diabetes mellitus type 2, uncontrolled, without complications Start:05-Jul-2014 Instruction Type:Patient Education How to access health informa tion online - Detail Indication:Diabetes mellitus type 2, uncontrolled, without complications Start:05-Jul-2014 Instruction Type:Patient Education Patient Instructions Indication:Diabetes mellitus type 2, uncontrolled, without complications Start:05-Jul-2014 Instruction Type:Provider Instructions for Treatment cardiovascular counseling Indication:Coronary artery disease, non-occlusive Start:11-Jun-2014 Instruction Type:Provider Instructions for Treatment How to access health informa tion online Indication:Diabetes mellitus type 2, controlled Start:04-Apr-2014 Instruction Type:Patient Education How to access health informa tion online - Detail Indication:Diabetes mellitus type 2, controlled Start:04-Apr-2014 Instruction Type:Patient Education Patient Instructions Indication:Diabetes mellitus type 2, controlled Start:04-Apr-2014 Instruction Type:Provider Instructions for Treatment Patient Instructions Indication:Diabetes mellitus type 2, controlled Start:03-Jan-2014 Instruction Type:Provider Instructions for Treatment cardiovascular counseling Indication:Coronary artery disease, non-occlusive Start:20-Jun-2013 Instruction Type:Provider Instructions for Treatment Patient Instructions Indication:Diabetes mellitus type 2, controlled Start:20-Jun-2013 Instruction Type:Provider Instructions for Treatment Patient Instructions Indication:COPD, moderate Start:11-Oct-2012 Instruction Type:Provider Instructions for Treatment Patient Instructions Indication:Coronary artery disease, non-occlusive Start:07-Jul-2012 Instruction Type:Provider Instructions for Treatment [facility]; [facility] Work Phone: Instructions* Name Dates Details cardiovascular counseling Indication:Coronary artery disease, non-occlusive Start:16-Jul-2022 Instruction Type:Provider Instructions for Treatment Patient Instructions Indication:BMI 25.0-25.9,adult Start:16-Jul-2022 Instruction Type:Provider Instructions for Treatment How to Access Health Informa tion Online using Patient Portal and [employer]rd [employer] Apps Indication:BMI 25.0-25.9,adult Start:16-Jul-2022 Instruction Type:Patient Education Patient Instructions Indication:Diabetes mellitus type 2, controlled Start:07-Jun-2022 Instruction Type:Provider Instructions for Treatment How to Access Health Informa tion Online using Patient Portal and [employer]rd [employer] Apps Indication:Diabetes mellitus type 2, controlled Start:07-Jun-2022 Instruction Type:Patient Education Patient Instructions Indication:BMI 26.0-26.9,adult Start:21-Jan-2022 Instruction Type:Provider Instructions for Treatment How to Access Health Informa tion Online using Patient Portal and [employer]rd [employer] Apps Indication:BMI 26.0-26.9,adult Start:21-Jan-2022 Instruction Type:Patient Education Patient Instructions Indication:Smoker Start:16-Oct-2021 Instruction Type:Provider Instructions for Treatment How to Access Health Informa tion Online using Patient Portal and [employer]rd [employer] Apps Indication:Smoker Start:16-Oct-2021 Instruction Type:Patient Education cardiovascular counseling Indication:Coronary artery disease, non-occlusive Start:11-Aug-2020 Instruction Type:Provider Instructions for Treatment How to access health informa tion online Indication:BMI 26.0-26.9,adult Start:11-Aug-2020 Instruction Type:Patient Education How to access health informa tion online - Detail Indication:BMI 26.0-26.9,adult Start:11-Aug-2020 Instruction Type:Patient Education Patient Instructions Indication:BMI 26.0-26.9,adult Start:11-Aug-2020 Instruction Type:Provider Instructions for Treatment How to access health informa tion online Indication:Smoker Start:26-Jun-2020 Instruction Type:Patient Education How to access health informa tion online - Detail Indication:Smoker Start:26-Jun-2020 Instruction Type:Patient Education Patient Instructions Indication:Smoker Start:26-Jun-2020 Instruction Type:Provider Instructions for Treatment How to access health informa tion online Indication:BMI 26.0-26.9,adult Start:25-Feb-2020 Instruction Type:Patient Education How to access health informa tion online - Detail Indication:BMI 26.0-26.9,adult Start:25-Feb-2020 Instruction Type:Patient Education Patient Instructions Indication:BMI 26.0-26.9,adult Start:25-Feb-2020 Instruction Type:Provider Instructions for Treatment How to access health informa tion online Indication:Coronary artery disease, non-occlusive Start:29-Aug-2019 Instruction Type:Patient Education How to access health informa tion online - Detail Indication:Coronary artery disease, non-occlusive Start:29-Aug-2019 Instruction Type:Patient Education Patient Instructions Indication:Coronary artery disease, non-occlusive Start:29-Aug-2019 Instruction Type:Provider Instructions for Treatment cardiovascular counseling Indication:Coronary artery disease, non-occlusive Start:08-Aug-2019 Instruction Type:Provider Instructions for Treatment How to access health informa tion online Indication:Cigar smoker Start:08-Aug-2019 Instruction Type:Patient Education How to access health informa tion online - Detail Indication:Cigar smoker Start:08-Aug-2019 Instruction Type:Patient Education Patient Instructions Indication:Cigar smoker Start:08-Aug-2019 Instruction Type:Provider Instructions for Treatment cardiovascular counseling Indication:Coronary artery disease, non-occlusive Start:25-Jul-2018 Instruction Type:Provider Instructions for Treatment How to access health informa tion online Indication:BMI 27.0-27.9,adult Start:25-Jul-2018 Instruction Type:Patient Education How to access health informa tion online - Detail Indication:BMI 27.0-27.9,adult Start:25-Jul-2018 Instruction Type:Patient Education Patient Instructions Indication:BMI 27.0-27.9,adult Start:25-Jul-2018 Instruction Type:Provider Instructions for Treatment How to access health informa tion online Indication:Body mass index 26.0-26.9, adult Start:17-May-2018 Instruction Type:Patient Education How to access health informa tion online - Detail Indication:Body mass index 26.0-26.9, adult Start:17-May-2018 Instruction Type:Patient Education Patient Instructions Indication:Body mass index 26.0-26.9, adult Start:17-May-2018 Instruction Type:Provider Instructions for Treatment How to access health informa tion online Indication:Tobacco Use Start:05-Apr-2018 Instruction Type:Patient Education How to access health informa tion online - Detail Indication:Tobacco Use Start:05-Apr-2018 Instruction Type:Patient Education Patient Instructions Indication:Tobacco Use Start:05-Apr-2018 Instruction Type:Provider Instructions for Treatment How to access health informa tion online Indication:Body mass index 26.0-26.9, adult Start:14-Feb-2018 Instruction Type:Patient Education How to access health informa tion online - Detail Indication:Body mass index 26.0-26.9, adult Start:14-Feb-2018 Instruction Type:Patient Education Patient Instructions Indication:Body mass index 26.0-26.9, adult Start:14-Feb-2018 Instruction Type:Provider Instructions for Treatment How to access health informa tion online Indication:Diabetes mellitus type 2, uncontrolled, without complications Start:08-Nov-2017 Instruction Type:Patient Education How to access health informa tion online - Detail Indication:Diabetes mellitus type 2, uncontrolled, without complications Start:08-Nov-2017 Instruction Type:Patient Education Patient Instructions Indication:Diabetes mellitus type 2, uncontrolled, without complications Start:08-Nov-2017 Instruction Type:Provider Instructions for Treatment cardiovascular counseling Indication:Coronary artery disease, non-occlusive Start:27-Jun-2017 Instruction Type:Provider Instructions for Treatment How to access health informa tion online Indication:Tobacco Use Start:27-Jun-2017 Instruction Type:Patient Education How to access health informa tion online - Detail Indication:Tobacco Use Start:27-Jun-2017 Instruction Type:Patient Education Patient Instructions Indication:Tobacco Use Start:27-Jun-2017 Instruction Type:Provider Instructions for Treatment How to access health informa tion online Indication:Diabetes mellitus type 2, controlled Start:05-May-2017 Instruction Type:Patient Education How to access health informa tion online - Detail Indication:Diabetes mellitus type 2, controlled Start:05-May-2017 Instruction Type:Patient Education Patient Instructions Indication:Diabetes mellitus type 2, controlled Start:05-May-2017 Instruction Type:Provider Instructions for Treatment How to access health informa tion online Indication:Diabetes mellitus type 2, controlled Start:23-Dec-2016 Instruction Type:Patient Education How to access health informa tion online - Detail Indication:Diabetes mellitus type 2, controlled Start:23-Dec-2016 Instruction Type:Patient Education Patient Instructions Indication:Diabetes mellitus type 2, controlled Start:23-Dec-2016 Instruction Type:Provider Instructions for Treatment Patient Instructions Indication:Annual Medicare Physical Start:24-Jun-2016 Instruction Type:Provider Instructions for Treatment cardiovascular counseling Indication:Coronary artery disease, non-occlusive Start:24-Jun-2016 Instruction Type:Provider Instructions for Treatment How to access health informa tion online Indication:Diabetes mellitus type 2, controlled Start:17-Jun-2016 Instruction Type:Patient Education How to access health informa tion online - Detail Indication:Diabetes mellitus type 2, controlled Start:17-Jun-2016 Instruction Type:Patient Education Patient Instructions Indication:Diabetes mellitus type 2, controlled Start:17-Jun-2016 Instruction Type:Provider Instructions for Treatment How to access health informa tion online Indication:Diabetes mellitus type 2, controlled Start:13-Feb-2016 Instruction Type:Patient Education How to access health informa tion online - Detail Indication:Diabetes mellitus type 2, controlled Start:13-Feb-2016 Instruction Type:Patient Education Patient Instructions Indication:Diabetes mellitus type 2, controlled Start:13-Feb-2016 Instruction Type:Provider Instructions for Treatment How to access health informa tion online Indication:Diabetes mellitus type 2, controlled Start:12-Nov-2015 Instruction Type:Patient Education How to access health informa tion online - Detail Indication:Diabetes mellitus type 2, controlled Start:12-Nov-2015 Instruction Type:Patient Education Patient Instructions Indication:Diabetes mellitus type 2, controlled Start:12-Nov-2015 Instruction Type:Provider Instructions for Treatment Patient Instructions Indication:COPD, moderate Start:17-Jul-2015 Instruction Type:Provider Instructions for Treatment How to access health informa tion online Indication:Diabetes mellitus type 2, uncontrolled, without complications Start:08-Jul-2015 Instruction Type:Patient Education How to access health informa tion online - Detail Indication:Diabetes mellitus type 2, uncontrolled, without complications Start:08-Jul-2015 Instruction Type:Patient Education Patient Instructions Indication:Diabetes mellitus type 2, uncontrolled, without complications Start:08-Jul-2015 Instruction Type:Provider Instructions for Treatment cardiovascular counseling Indication:Coronary artery disease, non-occlusive Start:19-Jun-2015 Instruction Type:Provider Instructions for Treatment How to access health informa tion online Indication:Annual Medicare Physical Start:19-Jun-2015 Instruction Type:Patient Education How to access health informa tion online - Detail Indication:Annual Medicare Physical Start:19-Jun-2015 Instruction Type:Patient Education Patient Instructions Indication:Annual Medicare Physical Start:19-Jun-2015 Instruction Type:Provider Instructions for Treatment How to access health informa tion online Indication:Diabetes mellitus type 2, controlled Start:10-Apr-2015 Instruction Type:Patient Education How to access health informa tion online - Detail Indication:Diabetes mellitus type 2, controlled Start:10-Apr-2015 Instruction Type:Patient Education Patient Instructions Indication:Diabetes mellitus type 2, controlled Start:10-Apr-2015 Instruction Type:Provider Instructions for Treatment Patient Instructions Indication:Diabetes mellitus type 2, controlled Start:09-Jan-2015 Instruction Type:Provider Instructions for Treatment Patient Instructions Indication:Coronary artery disease, non-occlusive Start:10-Oct-2014 Instruction Type:Provider Instructions for Treatment How to access health informa tion online Indication:Diabetes mellitus type 2, uncontrolled, without complications Start:05-Jul-2014 Instruction Type:Patient Education How to access health informa tion online - Detail Indication:Diabetes mellitus type 2, uncontrolled, without complications Start:05-Jul-2014 Instruction Type:Patient Education Patient Instructions Indication:Diabetes mellitus type 2, uncontrolled, without complications Start:05-Jul-2014 Instruction Type:Provider Instructions for Treatment cardiovascular counseling Indication:Coronary artery disease, non-occlusive Start:11-Jun-2014 Instruction Type:Provider Instructions for Treatment How to access health informa tion online Indication:Diabetes mellitus type 2, controlled Start:04-Apr-2014 Instruction Type:Patient Education How to access health informa tion online - Detail Indication:Diabetes mellitus type 2, controlled Start:04-Apr-2014 Instruction Type:Patient Education Patient Instructions Indication:Diabetes mellitus type 2, controlled Start:04-Apr-2014 Instruction Type:Provider Instructions for Treatment Patient Instructions Indication:Diabetes mellitus type 2, controlled Start:03-Jan-2014 Instruction Type:Provider Instructions for Treatment cardiovascular counseling Indication:Coronary artery disease, non-occlusive Start:20-Jun-2013 Instruction Type:Provider Instructions for Treatment Patient Instructions Indication:Diabetes mellitus type 2, controlled Start:20-Jun-2013 Instruction Type:Provider Instructions for Treatment Patient Instructions Indication:COPD, moderate Start:11-Oct-2012 Instruction Type:Provider Instructions for Treatment Patient Instructions Indication:Coronary artery disease, non-occlusive Start:07-Jul-2012 Instruction Type:Provider Instructions for Treatment [facility]; [facility] Work Phone: Instructions* Name Dates Details Patient Instructions Indication:BMI 26.0-26.9,adult Start:28-Jul-2022 Instruction Type:Provider Instructions for Treatment How to Access Health Informa tion Online using Patient Portal and [employer]rd [employer] Apps Indication:BMI 26.0-26.9,adult Start:28-Jul-2022 Instruction Type:Patient Education cardiovascular counseling Indication:Coronary artery disease, non-occlusive Start:16-Jul-2022 Instruction Type:Provider Instructions for Treatment Patient Instructions Indication:BMI 25.0-25.9,adult Start:16-Jul-2022 Instruction Type:Provider Instructions for Treatment How to Access Health Informa tion Online using Patient Portal and [employer]rd [employer] Apps Indication:BMI 25.0-25.9,adult Start:16-Jul-2022 Instruction Type:Patient Education Patient Instructions Indication:Diabetes mellitus type 2, controlled Start:07-Jun-2022 Instruction Type:Provider Instructions for Treatment How to Access Health Informa tion Online using Patient Portal and [employer]rd [employer] Apps Indication:Diabetes mellitus type 2, controlled Start:07-Jun-2022 Instruction Type:Patient Education Patient Instructions Indication:BMI 26.0-26.9,adult Start:21-Jan-2022 Instruction Type:Provider Instructions for Treatment How to Access Health Informa tion Online using Patient Portal and [employer]rd [employer] Apps Indication:BMI 26.0-26.9,adult Start:21-Jan-2022 Instruction Type:Patient Education Patient Instructions Indication:Smoker Start:16-Oct-2021 Instruction Type:Provider Instructions for Treatment How to Access Health Informa tion Online using Patient Portal and [employer]rd [employer] Apps Indication:Smoker Start:16-Oct-2021 Instruction Type:Patient Education cardiovascular counseling Indication:Coronary artery disease, non-occlusive Start:11-Aug-2020 Instruction Type:Provider Instructions for Treatment How to access health informa tion online Indication:BMI 26.0-26.9,adult Start:11-Aug-2020 Instruction Type:Patient Education How to access health informa tion online - Detail Indication:BMI 26.0-26.9,adult Start:11-Aug-2020 Instruction Type:Patient Education Patient Instructions Indication:BMI 26.0-26.9,adult Start:11-Aug-2020 Instruction Type:Provider Instructions for Treatment How to access health informa tion online Indication:Smoker Start:26-Jun-2020 Instruction Type:Patient Education How to access health informa tion online - Detail Indication:Smoker Start:26-Jun-2020 Instruction Type:Patient Education Patient Instructions Indication:Smoker Start:26-Jun-2020 Instruction Type:Provider Instructions for Treatment How to access health informa tion online Indication:BMI 26.0-26.9,adult Start:25-Feb-2020 Instruction Type:Patient Education How to access health informa tion online - Detail Indication:BMI 26.0-26.9,adult Start:25-Feb-2020 Instruction Type:Patient Education Patient Instructions Indication:BMI 26.0-26.9,adult Start:25-Feb-2020 Instruction Type:Provider Instructions for Treatment How to access health informa tion online Indication:Coronary artery disease, non-occlusive Start:29-Aug-2019 Instruction Type:Patient Education How to access health informa tion online - Detail Indication:Coronary artery disease, non-occlusive Start:29-Aug-2019 Instruction Type:Patient Education Patient Instructions Indication:Coronary artery disease, non-occlusive Start:29-Aug-2019 Instruction Type:Provider Instructions for Treatment cardiovascular counseling Indication:Coronary artery disease, non-occlusive Start:08-Aug-2019 Instruction Type:Provider Instructions for Treatment How to access health informa tion online Indication:Cigar smoker Start:08-Aug-2019 Instruction Type:Patient Education How to access health informa tion online - Detail Indication:Cigar smoker Start:08-Aug-2019 Instruction Type:Patient Education Patient Instructions Indication:Cigar smoker Start:08-Aug-2019 Instruction Type:Provider Instructions for Treatment cardiovascular counseling Indication:Coronary artery disease, non-occlusive Start:25-Jul-2018 Instruction Type:Provider Instructions for Treatment How to access health informa tion online Indication:BMI 27.0-27.9,adult Start:25-Jul-2018 Instruction Type:Patient Education How to access health informa tion online - Detail Indication:BMI 27.0-27.9,adult Start:25-Jul-2018 Instruction Type:Patient Education Patient Instructions Indication:BMI 27.0-27.9,adult Start:25-Jul-2018 Instruction Type:Provider Instructions for Treatment How to access health informa tion online Indication:Body mass index 26.0-26.9, adult Start:17-May-2018 Instruction Type:Patient Education How to access health informa tion online - Detail Indication:Body mass index 26.0-26.9, adult Start:17-May-2018 Instruction Type:Patient Education Patient Instructions Indication:Body mass index 26.0-26.9, adult Start:17-May-2018 Instruction Type:Provider Instructions for Treatment How to access health informa tion online Indication:Tobacco Use Start:05-Apr-2018 Instruction Type:Patient Education How to access health informa tion online - Detail Indication:Tobacco Use Start:05-Apr-2018 Instruction Type:Patient Education Patient Instructions Indication:Tobacco Use Start:05-Apr-2018 Instruction Type:Provider Instructions for Treatment How to access health informa tion online Indication:Body mass index 26.0-26.9, adult Start:14-Feb-2018 Instruction Type:Patient Education How to access health informa tion online - Detail Indication:Body mass index 26.0-26.9, adult Start:14-Feb-2018 Instruction Type:Patient Education Patient Instructions Indication:Body mass index 26.0-26.9, adult Start:14-Feb-2018 Instruction Type:Provider Instructions for Treatment How to access health informa tion online Indication:Diabetes mellitus type 2, uncontrolled, without complications Start:08-Nov-2017 Instruction Type:Patient Education How to access health informa tion online - Detail Indication:Diabetes mellitus type 2, uncontrolled, without complications Start:08-Nov-2017 Instruction Type:Patient Education Patient Instructions Indication:Diabetes mellitus type 2, uncontrolled, without complications Start:08-Nov-2017 Instruction Type:Provider Instructions for Treatment cardiovascular counseling Indication:Coronary artery disease, non-occlusive Start:27-Jun-2017 Instruction Type:Provider Instructions for Treatment How to access health informa tion online Indication:Tobacco Use Start:27-Jun-2017 Instruction Type:Patient Education How to access health informa tion online - Detail Indication:Tobacco Use Start:27-Jun-2017 Instruction Type:Patient Education Patient Instructions Indication:Tobacco Use Start:27-Jun-2017 Instruction Type:Provider Instructions for Treatment How to access health informa tion online Indication:Diabetes mellitus type 2, controlled Start:05-May-2017 Instruction Type:Patient Education How to access health informa tion online - Detail Indication:Diabetes mellitus type 2, controlled Start:05-May-2017 Instruction Type:Patient Education Patient Instructions Indication:Diabetes mellitus type 2, controlled Start:05-May-2017 Instruction Type:Provider Instructions for Treatment How to access health informa tion online Indication:Diabetes mellitus type 2, controlled Start:23-Dec-2016 Instruction Type:Patient Education How to access health informa tion online - Detail Indication:Diabetes mellitus type 2, controlled Start:23-Dec-2016 Instruction Type:Patient Education Patient Instructions Indication:Diabetes mellitus type 2, controlled Start:23-Dec-2016 Instruction Type:Provider Instructions for Treatment Patient Instructions Indication:Annual Medicare Physical Start:24-Jun-2016 Instruction Type:Provider Instructions for Treatment cardiovascular counseling Indication:Coronary artery disease, non-occlusive Start:24-Jun-2016 Instruction Type:Provider Instructions for Treatment How to access health informa tion online Indication:Diabetes mellitus type 2, controlled Start:17-Jun-2016 Instruction Type:Patient Education How to access health informa tion online - Detail Indication:Diabetes mellitus type 2, controlled Start:17-Jun-2016 Instruction Type:Patient Education Patient Instructions Indication:Diabetes mellitus type 2, controlled Start:17-Jun-2016 Instruction Type:Provider Instructions for Treatment How to access health informa tion online Indication:Diabetes mellitus type 2, controlled Start:13-Feb-2016 Instruction Type:Patient Education How to access health informa tion online - Detail Indication:Diabetes mellitus type 2, controlled Start:13-Feb-2016 Instruction Type:Patient Education Patient Instructions Indication:Diabetes mellitus type 2, controlled Start:13-Feb-2016 Instruction Type:Provider Instructions for Treatment How to access health informa tion online Indication:Diabetes mellitus type 2, controlled Start:12-Nov-2015 Instruction Type:Patient Education How to access health informa tion online - Detail Indication:Diabetes mellitus type 2, controlled Start:12-Nov-2015 Instruction Type:Patient Education Patient Instructions Indication:Diabetes mellitus type 2, controlled Start:12-Nov-2015 Instruction Type:Provider Instructions for Treatment Patient Instructions Indication:COPD, moderate Start:17-Jul-2015 Instruction Type:Provider Instructions for Treatment How to access health informa tion online Indication:Diabetes mellitus type 2, uncontrolled, without complications Start:08-Jul-2015 Instruction Type:Patient Education How to access health informa tion online - Detail Indication:Diabetes mellitus type 2, uncontrolled, without complications Start:08-Jul-2015 Instruction Type:Patient Education Patient Instructions Indication:Diabetes mellitus type 2, uncontrolled, without complications Start:08-Jul-2015 Instruction Type:Provider Instructions for Treatment cardiovascular counseling Indication:Coronary artery disease, non-occlusive Start:19-Jun-2015 Instruction Type:Provider Instructions for Treatment How to access health informa tion online Indication:Annual Medicare Physical Start:19-Jun-2015 Instruction Type:Patient Education How to access health informa tion online - Detail Indication:Annual Medicare Physical Start:19-Jun-2015 Instruction Type:Patient Education Patient Instructions Indication:Annual Medicare Physical Start:19-Jun-2015 Instruction Type:Provider Instructions for Treatment How to access health informa tion online Indication:Diabetes mellitus type 2, controlled Start:10-Apr-2015 Instruction Type:Patient Education How to access health informa tion online - Detail Indication:Diabetes mellitus type 2, controlled Start:10-Apr-2015 Instruction Type:Patient Education Patient Instructions Indication:Diabetes mellitus type 2, controlled Start:10-Apr-2015 Instruction Type:Provider Instructions for Treatment Patient Instructions Indication:Diabetes mellitus type 2, controlled Start:09-Jan-2015 Instruction Type:Provider Instructions for Treatment Patient Instructions Indication:Coronary artery disease, non-occlusive Start:10-Oct-2014 Instruction Type:Provider Instructions for Treatment How to access health informa tion online Indication:Diabetes mellitus type 2, uncontrolled, without complications Start:05-Jul-2014 Instruction Type:Patient Education How to access health informa tion online - Detail Indication:Diabetes mellitus type 2, uncontrolled, without complications Start:05-Jul-2014 Instruction Type:Patient Education Patient Instructions Indication:Diabetes mellitus type 2, uncontrolled, without complications Start:05-Jul-2014 Instruction Type:Provider Instructions for Treatment cardiovascular counseling Indication:Coronary artery disease, non-occlusive Start:11-Jun-2014 Instruction Type:Provider Instructions for Treatment How to access health informa tion online Indication:Diabetes mellitus type 2, controlled Start:04-Apr-2014 Instruction Type:Patient Education How to access health informa tion online - Detail Indication:Diabetes mellitus type 2, controlled Start:04-Apr-2014 Instruction Type:Patient Education Patient Instructions Indication:Diabetes mellitus type 2, controlled Start:04-Apr-2014 Instruction Type:Provider Instructions for Treatment Patient Instructions Indication:Diabetes mellitus type 2, controlled Start:03-Jan-2014 Instruction Type:Provider Instructions for Treatment cardiovascular counseling Indication:Coronary artery disease, non-occlusive Start:20-Jun-2013 Instruction Type:Provider Instructions for Treatment Patient Instructions Indication:Diabetes mellitus type 2, controlled Start:20-Jun-2013 Instruction Type:Provider Instructions for Treatment Patient Instructions Indication:COPD, moderate Start:11-Oct-2012 Instruction Type:Provider Instructions for Treatment Patient Instructions Indication:Coronary artery disease, non-occlusive Start:07-Jul-2012 Instruction Type:Provider Instructions for Treatment [facility]; [facility] Work Phone: Instructions* Name Dates Details Patient Instructions Indication:BMI 26.0-26.9,adult Start:28-Jul-2022 Instruction Type:Provider Instructions for Treatment How to Access Health Informa tion Online using Patient Portal and [employer]rd [employer] Apps Indication:BMI 26.0-26.9,adult Start:28-Jul-2022 Instruction Type:Patient Education cardiovascular counseling Indication:Coronary artery disease, non-occlusive Start:16-Jul-2022 Instruction Type:Provider Instructions for Treatment Patient Instructions Indication:BMI 25.0-25.9,adult Start:16-Jul-2022 Instruction Type:Provider Instructions for Treatment How to Access Health Informa tion Online using Patient Portal and [employer] Apps Indication:BMI 25.0-25.9,adult Start:16-Jul-2022 Instruction Type:Patient Education Patient Instructions Indication:Diabetes mellitus type 2, controlled Start:07-Jun-2022 Instruction Type:Provider Instructions for Treatment How to Access Health Informa tion Online using Patient Portal and [employer] Apps Indication:Diabetes mellitus type 2, controlled Start:07-Jun-2022 Instruction Type:Patient Education Patient Instructions Indication:BMI 26.0-26.9,adult Start:21-Jan-2022 Instruction Type:Provider Instructions for Treatment How to Access Health Informa tion Online using Patient Portal and [employer] Apps Indication:BMI 26.0-26.9,adult Start:21-Jan-2022 Instruction Type:Patient Education Patient Instructions Indication:Smoker Start:16-Oct-2021 Instruction Type:Provider Instructions for Treatment How to Access Health Informa tion Online using Patient Portal and [employer] Apps Indication:Smoker Start:16-Oct-2021 Instruction Type:Patient Education cardiovascular counseling Indication:Coronary artery disease, non-occlusive Start:11-Aug-2020 Instruction Type:Provider Instructions for Treatment How to access health informa tion online Indication:BMI 26.0-26.9,adult Start:11-Aug-2020 Instruction Type:Patient Education How to access health informa tion online - Detail Indication:BMI 26.0-26.9,adult Start:11-Aug-2020 Instruction Type:Patient Education Patient Instructions Indication:BMI 26.0-26.9,adult Start:11-Aug-2020 Instruction Type:Provider Instructions for Treatment How to access health informa tion online Indication:Smoker Start:26-Jun-2020 Instruction Type:Patient Education How to access health informa tion online - Detail Indication:Smoker Start:26-Jun-2020 Instruction Type:Patient Education Patient Instructions Indication:Smoker Start:26-Jun-2020 Instruction Type:Provider Instructions for Treatment How to access health informa tion online Indication:BMI 26.0-26.9,adult Start:25-Feb-2020 Instruction Type:Patient Education How to access health informa tion online - Detail Indication:BMI 26.0-26.9,adult Start:25-Feb-2020 Instruction Type:Patient Education Patient Instructions Indication:BMI 26.0-26.9,adult Start:25-Feb-2020 Instruction Type:Provider Instructions for Treatment How to access health informa tion online Indication:Coronary artery disease, non-occlusive Start:29-Aug-2019 Instruction Type:Patient Education How to access health informa tion online - Detail Indication:Coronary artery disease, non-occlusive Start:29-Aug-2019 Instruction Type:Patient Education Patient Instructions Indication:Coronary artery disease, non-occlusive Start:29-Aug-2019 Instruction Type:Provider Instructions for Treatment cardiovascular counseling Indication:Coronary artery disease, non-occlusive Start:08-Aug-2019 Instruction Type:Provider Instructions for Treatment How to access health informa tion online Indication:Cigar smoker Start:08-Aug-2019 Instruction Type:Patient Education How to access health informa tion online - Detail Indication:Cigar smoker Start:08-Aug-2019 Instruction Type:Patient Education Patient Instructions Indication:Cigar smoker Start:08-Aug-2019 Instruction Type:Provider Instructions for Treatment cardiovascular counseling Indication:Coronary artery disease, non-occlusive Start:25-Jul-2018 Instruction Type:Provider Instructions for Treatment How to access health informa tion online Indication:BMI 27.0-27.9,adult Start:25-Jul-2018 Instruction Type:Patient Education How to access health informa tion online - Detail Indication:BMI 27.0-27.9,adult Start:25-Jul-2018 Instruction Type:Patient Education Patient Instructions Indication:BMI 27.0-27.9,adult Start:25-Jul-2018 Instruction Type:Provider Instructions for Treatment How to access health informa tion online Indication:Body mass index 26.0-26.9, adult Start:17-May-2018 Instruction Type:Patient Education How to access health informa tion online - Detail Indication:Body mass index 26.0-26.9, adult Start:17-May-2018 Instruction Type:Patient Education Patient Instructions Indication:Body mass index 26.0-26.9, adult Start:17-May-2018 Instruction Type:Provider Instructions for Treatment How to access health informa tion online Indication:Tobacco Use Start:05-Apr-2018 Instruction Type:Patient Education How to access health informa tion online - Detail Indication:Tobacco Use Start:05-Apr-2018 Instruction Type:Patient Education Patient Instructions Indication:Tobacco Use Start:05-Apr-2018 Instruction Type:Provider Instructions for Treatment How to access health informa tion online Indication:Body mass index 26.0-26.9, adult Start:14-Feb-2018 Instruction Type:Patient Education How to access health informa tion online - Detail Indication:Body mass index 26.0-26.9, adult Start:14-Feb-2018 Instruction Type:Patient Education Patient Instructions Indication:Body mass index 26.0-26.9, adult Start:14-Feb-2018 Instruction Type:Provider Instructions for Treatment How to access health informa tion online Indication:Diabetes mellitus type 2, uncontrolled, without complications Start:08-Nov-2017 Instruction Type:Patient Education How to access health informa tion online - Detail Indication:Diabetes mellitus type 2, uncontrolled, without complications Start:08-Nov-2017 Instruction Type:Patient Education Patient Instructions Indication:Diabetes mellitus type 2, uncontrolled, without complications Start:08-Nov-2017 Instruction Type:Provider Instructions for Treatment cardiovascular counseling Indication:Coronary artery disease, non-occlusive Start:27-Jun-2017 Instruction Type:Provider Instructions for Treatment How to access health informa tion online Indication:Tobacco Use Start:27-Jun-2017 Instruction Type:Patient Education How to access health informa tion online - Detail Indication:Tobacco Use Start:27-Jun-2017 Instruction Type:Patient Education Patient Instructions Indication:Tobacco Use Start:27-Jun-2017 Instruction Type:Provider Instructions for Treatment How to access health informa tion online Indication:Diabetes mellitus type 2, controlled Start:05-May-2017 Instruction Type:Patient Education How to access health informa tion online - Detail Indication:Diabetes mellitus type 2, controlled Start:05-May-2017 Instruction Type:Patient Education Patient Instructions Indication:Diabetes mellitus type 2, controlled Start:05-May-2017 Instruction Type:Provider Instructions for Treatment How to access health informa tion online Indication:Diabetes mellitus type 2, controlled Start:23-Dec-2016 Instruction Type:Patient Education How to access health informa tion online - Detail Indication:Diabetes mellitus type 2, controlled Start:23-Dec-2016 Instruction Type:Patient Education Patient Instructions Indication:Diabetes mellitus type 2, controlled Start:23-Dec-2016 Instruction Type:Provider Instructions for Treatment Patient Instructions Indication:Annual Medicare Physical Start:24-Jun-2016 Instruction Type:Provider Instructions for Treatment cardiovascular counseling Indication:Coronary artery disease, non-occlusive Start:24-Jun-2016 Instruction Type:Provider Instructions for Treatment How to access health informa tion online Indication:Diabetes mellitus type 2, controlled Start:17-Jun-2016 Instruction Type:Patient Education How to access health informa tion online - Detail Indication:Diabetes mellitus type 2, controlled Start:17-Jun-2016 Instruction Type:Patient Education Patient Instructions Indication:Diabetes mellitus type 2, controlled Start:17-Jun-2016 Instruction Type:Provider Instructions for Treatment How to access health informa tion online Indication:Diabetes mellitus type 2, controlled Start:13-Feb-2016 Instruction Type:Patient Education How to access health informa tion online - Detail Indication:Diabetes mellitus type 2, controlled Start:13-Feb-2016 Instruction Type:Patient Education Patient Instructions Indication:Diabetes mellitus type 2, controlled Start:13-Feb-2016 Instruction Type:Provider Instructions for Treatment How to access health informa tion online Indication:Diabetes mellitus type 2, controlled Start:12-Nov-2015 Instruction Type:Patient Education How to access health informa tion online - Detail Indication:Diabetes mellitus type 2, controlled Start:12-Nov-2015 Instruction Type:Patient Education Patient Instructions Indication:Diabetes mellitus type 2, controlled Start:12-Nov-2015 Instruction Type:Provider Instructions for Treatment Patient Instructions Indication:COPD, moderate Start:17-Jul-2015 Instruction Type:Provider Instructions for Treatment How to access health informa tion online Indication:Diabetes mellitus type 2, uncontrolled, without complications Start:08-Jul-2015 Instruction Type:Patient Education How to access health informa tion online - Detail Indication:Diabetes mellitus type 2, uncontrolled, without complications Start:08-Jul-2015 Instruction Type:Patient Education Patient Instructions Indication:Diabetes mellitus type 2, uncontrolled, without complications Start:08-Jul-2015 Instruction Type:Provider Instructions for Treatment cardiovascular counseling Indication:Coronary artery disease, non-occlusive Start:19-Jun-2015 Instruction Type:Provider Instructions for Treatment How to access health informa tion online Indication:Annual Medicare Physical Start:19-Jun-2015 Instruction Type:Patient Education How to access health informa tion online - Detail Indication:Annual Medicare Physical Start:19-Jun-2015 Instruction Type:Patient Education Patient Instructions Indication:Annual Medicare Physical Start:19-Jun-2015 Instruction Type:Provider Instructions for Treatment How to access health informa tion online Indication:Diabetes mellitus type 2, controlled Start:10-Apr-2015 Instruction Type:Patient Education How to access health informa tion online - Detail Indication:Diabetes mellitus type 2, controlled Start:10-Apr-2015 Instruction Type:Patient Education Patient Instructions Indication:Diabetes mellitus type 2, controlled Start:10-Apr-2015 Instruction Type:Provider Instructions for Treatment Patient Instructions Indication:Diabetes mellitus type 2, controlled Start:09-Jan-2015 Instruction Type:Provider Instructions for Treatment Patient Instructions Indication:Coronary artery disease, non-occlusive Start:10-Oct-2014 Instruction Type:Provider Instructions for Treatment How to access health informa tion online Indication:Diabetes mellitus type 2, uncontrolled, without complications Start:05-Jul-2014 Instruction Type:Patient Education How to access health informa tion online - Detail Indication:Diabetes mellitus type 2, uncontrolled, without complications Start:05-Jul-2014 Instruction Type:Patient Education Patient Instructions Indication:Diabetes mellitus type 2, uncontrolled, without complications Start:05-Jul-2014 Instruction Type:Provider Instructions for Treatment cardiovascular counseling Indication:Coronary artery disease, non-occlusive Start:11-Jun-2014 Instruction Type:Provider Instructions for Treatment How to access health informa tion online Indication:Diabetes mellitus type 2, controlled Start:04-Apr-2014 Instruction Type:Patient Education How to access health informa tion online - Detail Indication:Diabetes mellitus type 2, controlled Start:04-Apr-2014 Instruction Type:Patient Education Patient Instructions Indication:Diabetes mellitus type 2, controlled Start:04-Apr-2014 Instruction Type:Provider Instructions for Treatment Patient Instructions Indication:Diabetes mellitus type 2, controlled Start:03-Jan-2014 Instruction Type:Provider Instructions for Treatment cardiovascular counseling Indication:Coronary artery disease, non-occlusive Start:20-Jun-2013 Instruction Type:Provider Instructions for Treatment Patient Instructions Indication:Diabetes mellitus type 2, controlled Start:20-Jun-2013 Instruction Type:Provider Instructions for Treatment Patient Instructions Indication:COPD, moderate Start:11-Oct-2012 Instruction Type:Provider Instructions for Treatment Patient Instructions Indication:Coronary artery disease, non-occlusive Start:07-Jul-2012 Instruction Type:Provider Instructions for Treatment [facility]; [facility] Work Phone: Instructions* Name Dates Details Patient Instructions Indication:BMI 26.0-26.9,adult Start:28-Jul-2022 Instruction Type:Provider Instructions for Treatment How to Access Health Informa tion Online using Patient Portal and [employer] Apps Indication:BMI 26.0-26.9,adult Start:28-Jul-2022 Instruction Type:Patient Education cardiovascular counseling Indication:Coronary artery disease, non-occlusive Start:16-Jul-2022 Instruction Type:Provider Instructions for Treatment Patient Instructions Indication:BMI 25.0-25.9,adult Start:16-Jul-2022 Instruction Type:Provider Instructions for Treatment How to Access Health Informa tion Online using Patient Portal and [employer] Apps Indication:BMI 25.0-25.9,adult Start:16-Jul-2022 Instruction Type:Patient Education Patient Instructions Indication:Diabetes mellitus type 2, controlled Start:07-Jun-2022 Instruction Type:Provider Instructions for Treatment How to Access Health Informa tion Online using Patient Portal and [employer] Apps Indication:Diabetes mellitus type 2, controlled Start:07-Jun-2022 Instruction Type:Patient Education Patient Instructions Indication:BMI 26.0-26.9,adult Start:21-Jan-2022 Instruction Type:Provider Instructions for Treatment How to Access Health Informa tion Online using Patient Portal and [employer] Apps Indication:BMI 26.0-26.9,adult Start:21-Jan-2022 Instruction Type:Patient Education Patient Instructions Indication:Smoker Start:16-Oct-2021 Instruction Type:Provider Instructions for Treatment How to Access Health Informa tion Online using Patient Portal and [employer] Apps Indication:Smoker Start:16-Oct-2021 Instruction Type:Patient Education cardiovascular counseling Indication:Coronary artery disease, non-occlusive Start:11-Aug-2020 Instruction Type:Provider Instructions for Treatment How to access health informa tion online Indication:BMI 26.0-26.9,adult Start:11-Aug-2020 Instruction Type:Patient Education How to access health informa tion online - Detail Indication:BMI 26.0-26.9,adult Start:11-Aug-2020 Instruction Type:Patient Education Patient Instructions Indication:BMI 26.0-26.9,adult Start:11-Aug-2020 Instruction Type:Provider Instructions for Treatment How to access health informa tion online Indication:Smoker Start:26-Jun-2020 Instruction Type:Patient Education How to access health informa tion online - Detail Indication:Smoker Start:26-Jun-2020 Instruction Type:Patient Education Patient Instructions Indication:Smoker Start:26-Jun-2020 Instruction Type:Provider Instructions for Treatment How to access health informa tion online Indication:BMI 26.0-26.9,adult Start:25-Feb-2020 Instruction Type:Patient Education How to access health informa tion online - Detail Indication:BMI 26.0-26.9,adult Start:25-Feb-2020 Instruction Type:Patient Education Patient Instructions Indication:BMI 26.0-26.9,adult Start:25-Feb-2020 Instruction Type:Provider Instructions for Treatment How to access health informa tion online Indication:Coronary artery disease, non-occlusive Start:29-Aug-2019 Instruction Type:Patient Education How to access health informa tion online - Detail Indication:Coronary artery disease, non-occlusive Start:29-Aug-2019 Instruction Type:Patient Education Patient Instructions Indication:Coronary artery disease, non-occlusive Start:29-Aug-2019 Instruction Type:Provider Instructions for Treatment cardiovascular counseling Indication:Coronary artery disease, non-occlusive Start:08-Aug-2019 Instruction Type:Provider Instructions for Treatment How to access health informa tion online Indication:Cigar smoker Start:08-Aug-2019 Instruction Type:Patient Education How to access health informa tion online - Detail Indication:Cigar smoker Start:08-Aug-2019 Instruction Type:Patient Education Patient Instructions Indication:Cigar smoker Start:08-Aug-2019 Instruction Type:Provider Instructions for Treatment cardiovascular counseling Indication:Coronary artery disease, non-occlusive Start:25-Jul-2018 Instruction Type:Provider Instructions for Treatment How to access health informa tion online Indication:BMI 27.0-27.9,adult Start:25-Jul-2018 Instruction Type:Patient Education How to access health informa tion online - Detail Indication:BMI 27.0-27.9,adult Start:25-Jul-2018 Instruction Type:Patient Education Patient Instructions Indication:BMI 27.0-27.9,adult Start:25-Jul-2018 Instruction Type:Provider Instructions for Treatment How to access health informa tion online Indication:Body mass index 26.0-26.9, adult Start:17-May-2018 Instruction Type:Patient Education How to access health informa tion online - Detail Indication:Body mass index 26.0-26.9, adult Start:17-May-2018 Instruction Type:Patient Education Patient Instructions Indication:Body mass index 26.0-26.9, adult Start:17-May-2018 Instruction Type:Provider Instructions for Treatment How to access health informa tion online Indication:Tobacco Use Start:05-Apr-2018 Instruction Type:Patient Education How to access health informa tion online - Detail Indication:Tobacco Use Start:05-Apr-2018 Instruction Type:Patient Education Patient Instructions Indication:Tobacco Use Start:05-Apr-2018 Instruction Type:Provider Instructions for Treatment How to access health informa tion online Indication:Body mass index 26.0-26.9, adult Start:14-Feb-2018 Instruction Type:Patient Education How to access health informa tion online - Detail Indication:Body mass index 26.0-26.9, adult Start:14-Feb-2018 Instruction Type:Patient Education Patient Instructions Indication:Body mass index 26.0-26.9, adult Start:14-Feb-2018 Instruction Type:Provider Instructions for Treatment How to access health informa tion online Indication:Diabetes mellitus type 2, uncontrolled, without complications Start:08-Nov-2017 Instruction Type:Patient Education How to access health informa tion online - Detail Indication:Diabetes mellitus type 2, uncontrolled, without complications Start:08-Nov-2017 Instruction Type:Patient Education Patient Instructions Indication:Diabetes mellitus type 2, uncontrolled, without complications Start:08-Nov-2017 Instruction Type:Provider Instructions for Treatment cardiovascular counseling Indication:Coronary artery disease, non-occlusive Start:27-Jun-2017 Instruction Type:Provider Instructions for Treatment How to access health informa tion online Indication:Tobacco Use Start:27-Jun-2017 Instruction Type:Patient Education How to access health informa tion online - Detail Indication:Tobacco Use Start:27-Jun-2017 Instruction Type:Patient Education Patient Instructions Indication:Tobacco Use Start:27-Jun-2017 Instruction Type:Provider Instructions for Treatment How to access health informa tion online Indication:Diabetes mellitus type 2, controlled Start:05-May-2017 Instruction Type:Patient Education How to access health informa tion online - Detail Indication:Diabetes mellitus type 2, controlled Start:05-May-2017 Instruction Type:Patient Education Patient Instructions Indication:Diabetes mellitus type 2, controlled Start:05-May-2017 Instruction Type:Provider Instructions for Treatment How to access health informa tion online Indication:Diabetes mellitus type 2, controlled Start:23-Dec-2016 Instruction Type:Patient Education How to access health informa tion online - Detail Indication:Diabetes mellitus type 2, controlled Start:23-Dec-2016 Instruction Type:Patient Education Patient Instructions Indication:Diabetes mellitus type 2, controlled Start:23-Dec-2016 Instruction Type:Provider Instructions for Treatment Patient Instructions Indication:Annual Medicare Physical Start:24-Jun-2016 Instruction Type:Provider Instructions for Treatment cardiovascular counseling Indication:Coronary artery disease, non-occlusive Start:24-Jun-2016 Instruction Type:Provider Instructions for Treatment How to access health informa tion online Indication:Diabetes mellitus type 2, controlled Start:17-Jun-2016 Instruction Type:Patient Education How to access health informa tion online - Detail Indication:Diabetes mellitus type 2, controlled Start:17-Jun-2016 Instruction Type:Patient Education Patient Instructions Indication:Diabetes mellitus type 2, controlled Start:17-Jun-2016 Instruction Type:Provider Instructions for Treatment How to access health informa tion online Indication:Diabetes mellitus type 2, controlled Start:13-Feb-2016 Instruction Type:Patient Education How to access health informa tion online - Detail Indication:Diabetes mellitus type 2, controlled Start:13-Feb-2016 Instruction Type:Patient Education Patient Instructions Indication:Diabetes mellitus type 2, controlled Start:13-Feb-2016 Instruction Type:Provider Instructions for Treatment How to access health informa tion online Indication:Diabetes mellitus type 2, controlled Start:12-Nov-2015 Instruction Type:Patient Education How to access health informa tion online - Detail Indication:Diabetes mellitus type 2, controlled Start:12-Nov-2015 Instruction Type:Patient Education Patient Instructions Indication:Diabetes mellitus type 2, controlled Start:12-Nov-2015 Instruction Type:Provider Instructions for Treatment Patient Instructions Indication:COPD, moderate Start:17-Jul-2015 Instruction Type:Provider Instructions for Treatment How to access health informa tion online Indication:Diabetes mellitus type 2, uncontrolled, without complications Start:08-Jul-2015 Instruction Type:Patient Education How to access health informa tion online - Detail Indication:Diabetes mellitus type 2, uncontrolled, without complications Start:08-Jul-2015 Instruction Type:Patient Education Patient Instructions Indication:Diabetes mellitus type 2, uncontrolled, without complications Start:08-Jul-2015 Instruction Type:Provider Instructions for Treatment cardiovascular counseling Indication:Coronary artery disease, non-occlusive Start:19-Jun-2015 Instruction Type:Provider Instructions for Treatment How to access health informa tion online Indication:Annual Medicare Physical Start:19-Jun-2015 Instruction Type:Patient Education How to access health informa tion online - Detail Indication:Annual Medicare Physical Start:19-Jun-2015 Instruction Type:Patient Education Patient Instructions Indication:Annual Medicare Physical Start:19-Jun-2015 Instruction Type:Provider Instructions for Treatment How to access health informa tion online Indication:Diabetes mellitus type 2, controlled Start:10-Apr-2015 Instruction Type:Patient Education How to access health informa tion online - Detail Indication:Diabetes mellitus type 2, controlled Start:10-Apr-2015 Instruction Type:Patient Education Patient Instructions Indication:Diabetes mellitus type 2, controlled Start:10-Apr-2015 Instruction Type:Provider Instructions for Treatment Patient Instructions Indication:Diabetes mellitus type 2, controlled Start:09-Jan-2015 Instruction Type:Provider Instructions for Treatment Patient Instructions Indication:Coronary artery disease, non-occlusive Start:10-Oct-2014 Instruction Type:Provider Instructions for Treatment How to access health informa tion online Indication:Diabetes mellitus type 2, uncontrolled, without complications Start:05-Jul-2014 Instruction Type:Patient Education How to access health informa tion online - Detail Indication:Diabetes mellitus type 2, uncontrolled, without complications Start:05-Jul-2014 Instruction Type:Patient Education Patient Instructions Indication:Diabetes mellitus type 2, uncontrolled, without complications Start:05-Jul-2014 Instruction Type:Provider Instructions for Treatment cardiovascular counseling Indication:Coronary artery disease, non-occlusive Start:11-Jun-2014 Instruction Type:Provider Instructions for Treatment How to access health informa tion online Indication:Diabetes mellitus type 2, controlled Start:04-Apr-2014 Instruction Type:Patient Education How to access health informa tion online - Detail Indication:Diabetes mellitus type 2, controlled Start:04-Apr-2014 Instruction Type:Patient Education Patient Instructions Indication:Diabetes mellitus type 2, controlled Start:04-Apr-2014 Instruction Type:Provider Instructions for Treatment Patient Instructions Indication:Diabetes mellitus type 2, controlled Start:03-Jan-2014 Instruction Type:Provider Instructions for Treatment cardiovascular counseling Indication:Coronary artery disease, non-occlusive Start:20-Jun-2013 Instruction Type:Provider Instructions for Treatment Patient Instructions Indication:Diabetes mellitus type 2, controlled Start:20-Jun-2013 Instruction Type:Provider Instructions for Treatment Patient Instructions Indication:COPD, moderate Start:11-Oct-2012 Instruction Type:Provider Instructions for Treatment Patient Instructions Indication:Coronary artery disease, non-occlusive Start:07-Jul-2012 Instruction Type:Provider Instructions for Treatment [facility]; [facility] Work Phone: Instructions* Name Dates Details Patient Instructions Indication:BMI 26.0-26.9,adult Start:28-Jul-2022 Instruction Type:Provider Instructions for Treatment How to Access Health Informa tion Online using Patient Portal and [employer] Indication:BMI 26.0-26.9,adult Start:28-Jul-2022 Instruction Type:Patient Education cardiovascular counseling Indication:Coronary artery disease, non-occlusive Start:16-Jul-2022 Instruction Type:Provider Instructions for Treatment Patient Instructions Indication:BMI 25.0-25.9,adult Start:16-Jul-2022 Instruction Type:Provider Instructions for Treatment How to Access Health Informa tion Online using Patient Portal and [employer] Indication:BMI 25.0-25.9,adult Start:16-Jul-2022 Instruction Type:Patient Education Patient Instructions Indication:Diabetes mellitus type 2, controlled Start:07-Jun-2022 Instruction Type:Provider Instructions for Treatment How to Access Health Informa tion Online using Patient Portal and [employer] Indication:Diabetes mellitus type 2, controlled Start:07-Jun-2022 Instruction Type:Patient Education Patient Instructions Indication:BMI 26.0-26.9,adult Start:21-Jan-2022 Instruction Type:Provider Instructions for Treatment How to Access Health Informa tion Online using Patient Portal and [employer] Indication:BMI 26.0-26.9,adult Start:21-Jan-2022 Instruction Type:Patient Education Patient Instructions Indication:Smoker Start:16-Oct-2021 Instruction Type:Provider Instructions for Treatment How to Access Health Informa tion Online using Patient Portal and [employer] Indication:Smoker Start:16-Oct-2021 Instruction Type:Patient Education cardiovascular counseling Indication:Coronary artery disease, non-occlusive Start:11-Aug-2020 Instruction Type:Provider Instructions for Treatment How to access health informa tion online Indication:BMI 26.0-26.9,adult Start:11-Aug-2020 Instruction Type:Patient Education How to access health informa tion online - Detail Indication:BMI 26.0-26.9,adult Start:11-Aug-2020 Instruction Type:Patient Education Patient Instructions Indication:BMI 26.0-26.9,adult Start:11-Aug-2020 Instruction Type:Provider Instructions for Treatment How to access health informa tion online Indication:Smoker Start:26-Jun-2020 Instruction Type:Patient Education How to access health informa tion online - Detail Indication:Smoker Start:26-Jun-2020 Instruction Type:Patient Education Patient Instructions Indication:Smoker Start:26-Jun-2020 Instruction Type:Provider Instructions for Treatment How to access health informa tion online Indication:BMI 26.0-26.9,adult Start:25-Feb-2020 Instruction Type:Patient Education How to access health informa tion online - Detail Indication:BMI 26.0-26.9,adult Start:25-Feb-2020 Instruction Type:Patient Education Patient Instructions Indication:BMI 26.0-26.9,adult Start:25-Feb-2020 Instruction Type:Provider Instructions for Treatment How to access health informa tion online Indication:Coronary artery disease, non-occlusive Start:29-Aug-2019 Instruction Type:Patient Education How to access health informa tion online - Detail Indication:Coronary artery disease, non-occlusive Start:29-Aug-2019 Instruction Type:Patient Education Patient Instructions Indication:Coronary artery disease, non-occlusive Start:29-Aug-2019 Instruction Type:Provider Instructions for Treatment cardiovascular counseling Indication:Coronary artery disease, non-occlusive Start:08-Aug-2019 Instruction Type:Provider Instructions for Treatment How to access health informa tion online Indication:Cigar smoker Start:08-Aug-2019 Instruction Type:Patient Education How to access health informa tion online - Detail Indication:Cigar smoker Start:08-Aug-2019 Instruction Type:Patient Education Patient Instructions Indication:Cigar smoker Start:08-Aug-2019 Instruction Type:Provider Instructions for Treatment cardiovascular counseling Indication:Coronary artery disease, non-occlusive Start:25-Jul-2018 Instruction Type:Provider Instructions for Treatment How to access health informa tion online Indication:BMI 27.0-27.9,adult Start:25-Jul-2018 Instruction Type:Patient Education How to access health informa tion online - Detail Indication:BMI 27.0-27.9,adult Start:25-Jul-2018 Instruction Type:Patient Education Patient Instructions Indication:BMI 27.0-27.9,adult Start:25-Jul-2018 Instruction Type:Provider Instructions for Treatment How to access health informa tion online Indication:Body mass index 26.0-26.9, adult Start:17-May-2018 Instruction Type:Patient Education How to access health informa tion online - Detail Indication:Body mass index 26.0-26.9, adult Start:17-May-2018 Instruction Type:Patient Education Patient Instructions Indication:Body mass index 26.0-26.9, adult Start:17-May-2018 Instruction Type:Provider Instructions for Treatment How to access health informa tion online Indication:Tobacco Use Start:05-Apr-2018 Instruction Type:Patient Education How to access health informa tion online - Detail Indication:Tobacco Use Start:05-Apr-2018 Instruction Type:Patient Education Patient Instructions Indication:Tobacco Use Start:05-Apr-2018 Instruction Type:Provider Instructions for Treatment How to access health informa tion online Indication:Body mass index 26.0-26.9, adult Start:14-Feb-2018 Instruction Type:Patient Education How to access health informa tion online - Detail Indication:Body mass index 26.0-26.9, adult Start:14-Feb-2018 Instruction Type:Patient Education Patient Instructions Indication:Body mass index 26.0-26.9, adult Start:14-Feb-2018 Instruction Type:Provider Instructions for Treatment How to access health informa tion online Indication:Diabetes mellitus type 2, uncontrolled, without complications Start:08-Nov-2017 Instruction Type:Patient Education How to access health informa tion online - Detail Indication:Diabetes mellitus type 2, uncontrolled, without complications Start:08-Nov-2017 Instruction Type:Patient Education Patient Instructions Indication:Diabetes mellitus type 2, uncontrolled, without complications Start:08-Nov-2017 Instruction Type:Provider Instructions for Treatment cardiovascular counseling Indication:Coronary artery disease, non-occlusive Start:27-Jun-2017 Instruction Type:Provider Instructions for Treatment How to access health informa tion online Indication:Tobacco Use Start:27-Jun-2017 Instruction Type:Patient Education How to access health informa tion online - Detail Indication:Tobacco Use Start:27-Jun-2017 Instruction Type:Patient Education Patient Instructions Indication:Tobacco Use Start:27-Jun-2017 Instruction Type:Provider Instructions for Treatment How to access health informa tion online Indication:Diabetes mellitus type 2, controlled Start:05-May-2017 Instruction Type:Patient Education How to access health informa tion online - Detail Indication:Diabetes mellitus type 2, controlled Start:05-May-2017 Instruction Type:Patient Education Patient Instructions Indication:Diabetes mellitus type 2, controlled Start:05-May-2017 Instruction Type:Provider Instructions for Treatment How to access health informa tion online Indication:Diabetes mellitus type 2, controlled Start:23-Dec-2016 Instruction Type:Patient Education How to access health informa tion online - Detail Indication:Diabetes mellitus type 2, controlled Start:23-Dec-2016 Instruction Type:Patient Education Patient Instructions Indication:Diabetes mellitus type 2, controlled Start:23-Dec-2016 Instruction Type:Provider Instructions for Treatment Patient Instructions Indication:Annual Medicare Physical Start:24-Jun-2016 Instruction Type:Provider Instructions for Treatment cardiovascular counseling Indication:Coronary artery disease, non-occlusive Start:24-Jun-2016 Instruction Type:Provider Instructions for Treatment How to access health informa tion online Indication:Diabetes mellitus type 2, controlled Start:17-Jun-2016 Instruction Type:Patient Education How to access health informa tion online - Detail Indication:Diabetes mellitus type 2, controlled Start:17-Jun-2016 Instruction Type:Patient Education Patient Instructions Indication:Diabetes mellitus type 2, controlled Start:17-Jun-2016 Instruction Type:Provider Instructions for Treatment How to access health informa tion online Indication:Diabetes mellitus type 2, controlled Start:13-Feb-2016 Instruction Type:Patient Education How to access health informa tion online - Detail Indication:Diabetes mellitus type 2, controlled Start:13-Feb-2016 Instruction Type:Patient Education Patient Instructions Indication:Diabetes mellitus type 2, controlled Start:13-Feb-2016 Instruction Type:Provider Instructions for Treatment How to access health informa tion online Indication:Diabetes mellitus type 2, controlled Start:12-Nov-2015 Instruction Type:Patient Education How to access health informa tion online - Detail Indication:Diabetes mellitus type 2, controlled Start:12-Nov-2015 Instruction Type:Patient Education Patient Instructions Indication:Diabetes mellitus type 2, controlled Start:12-Nov-2015 Instruction Type:Provider Instructions for Treatment Patient Instructions Indication:COPD, moderate Start:17-Jul-2015 Instruction Type:Provider Instructions for Treatment How to access health informa tion online Indication:Diabetes mellitus type 2, uncontrolled, without complications Start:08-Jul-2015 Instruction Type:Patient Education How to access health informa tion online - Detail Indication:Diabetes mellitus type 2, uncontrolled, without complications Start:08-Jul-2015 Instruction Type:Patient Education Patient Instructions Indication:Diabetes mellitus type 2, uncontrolled, without complications Start:08-Jul-2015 Instruction Type:Provider Instructions for Treatment cardiovascular counseling Indication:Coronary artery disease, non-occlusive Start:19-Jun-2015 Instruction Type:Provider Instructions for Treatment How to access health informa tion online Indication:Annual Medicare Physical Start:19-Jun-2015 Instruction Type:Patient Education How to access health informa tion online - Detail Indication:Annual Medicare Physical Start:19-Jun-2015 Instruction Type:Patient Education Patient Instructions Indication:Annual Medicare Physical Start:19-Jun-2015 Instruction Type:Provider Instructions for Treatment How to access health informa tion online Indication:Diabetes mellitus type 2, controlled Start:10-Apr-2015 Instruction Type:Patient Education How to access health informa tion online - Detail Indication:Diabetes mellitus type 2, controlled Start:10-Apr-2015 Instruction Type:Patient Education Patient Instructions Indication:Diabetes mellitus type 2, controlled Start:10-Apr-2015 Instruction Type:Provider Instructions for Treatment Patient Instructions Indication:Diabetes mellitus type 2, controlled Start:09-Jan-2015 Instruction Type:Provider Instructions for Treatment Patient Instructions Indication:Coronary artery disease, non-occlusive Start:10-Oct-2014 Instruction Type:Provider Instructions for Treatment How to access health informa tion online Indication:Diabetes mellitus type 2, uncontrolled, without complications Start:05-Jul-2014 Instruction Type:Patient Education How to access health informa tion online - Detail Indication:Diabetes mellitus type 2, uncontrolled, without complications Start:05-Jul-2014 Instruction Type:Patient Education Patient Instructions Indication:Diabetes mellitus type 2, uncontrolled, without complications Start:05-Jul-2014 Instruction Type:Provider Instructions for Treatment cardiovascular counseling Indication:Coronary artery disease, non-occlusive Start:11-Jun-2014 Instruction Type:Provider Instructions for Treatment How to access health informa tion online Indication:Diabetes mellitus type 2, controlled Start:04-Apr-2014 Instruction Type:Patient Education How to access health informa tion online - Detail Indication:Diabetes mellitus type 2, controlled Start:04-Apr-2014 Instruction Type:Patient Education Patient Instructions Indication:Diabetes mellitus type 2, controlled Start:04-Apr-2014 Instruction Type:Provider Instructions for Treatment Patient Instructions Indication:Diabetes mellitus type 2, controlled Start:03-Jan-2014 Instruction Type:Provider Instructions for Treatment cardiovascular counseling Indication:Coronary artery disease, non-occlusive Start:20-Jun-2013 Instruction Type:Provider Instructions for Treatment Patient Instructions Indication:Diabetes mellitus type 2, controlled Start:20-Jun-2013 Instruction Type:Provider Instructions for Treatment Patient Instructions Indication:COPD, moderate Start:11-Oct-2012 Instruction Type:Provider Instructions for Treatment Patient Instructions Indication:Coronary artery disease, non-occlusive Start:07-Jul-2012 Instruction Type:Provider Instructions for Treatment [facility]; [facility] Work Phone: Instructions* Name Dates Details Patient Instructions Indication:BMI 26.0-26.9,adult Start:28-Jul-2022 Instruction Type:Provider Instructions for Treatment How to Access Health Informa tion Online using Patient Portal and [employer] Indication:BMI 26.0-26.9,adult Start:28-Jul-2022 Instruction Type:Patient Education cardiovascular counseling Indication:Coronary artery disease, non-occlusive Start:16-Jul-2022 Instruction Type:Provider Instructions for Treatment Patient Instructions Indication:BMI 25.0-25.9,adult Start:16-Jul-2022 Instruction Type:Provider Instructions for Treatment How to Access Health Informa tion Online using Patient Portal and [employer] Apps Indication:BMI 25.0-25.9,adult Start:16-Jul-2022 Instruction Type:Patient Education Patient Instructions Indication:Diabetes mellitus type 2, controlled Start:07-Jun-2022 Instruction Type:Provider Instructions for Treatment How to Access Health Informa tion Online using Patient Portal and [employer] Apps Indication:Diabetes mellitus type 2, controlled Start:07-Jun-2022 Instruction Type:Patient Education Patient Instructions Indication:BMI 26.0-26.9,adult Start:21-Jan-2022 Instruction Type:Provider Instructions for Treatment How to Access Health Informa tion Online using Patient Portal and [employer] Apps Indication:BMI 26.0-26.9,adult Start:21-Jan-2022 Instruction Type:Patient Education Patient Instructions Indication:Smoker Start:16-Oct-2021 Instruction Type:Provider Instructions for Treatment How to Access Health Informa tion Online using Patient Portal and [employer] Apps Indication:Smoker Start:16-Oct-2021 Instruction Type:Patient Education cardiovascular counseling Indication:Coronary artery disease, non-occlusive Start:11-Aug-2020 Instruction Type:Provider Instructions for Treatment How to access health informa tion online Indication:BMI 26.0-26.9,adult Start:11-Aug-2020 Instruction Type:Patient Education How to access health informa tion online - Detail Indication:BMI 26.0-26.9,adult Start:11-Aug-2020 Instruction Type:Patient Education Patient Instructions Indication:BMI 26.0-26.9,adult Start:11-Aug-2020 Instruction Type:Provider Instructions for Treatment How to access health informa tion online Indication:Smoker Start:26-Jun-2020 Instruction Type:Patient Education How to access health informa tion online - Detail Indication:Smoker Start:26-Jun-2020 Instruction Type:Patient Education Patient Instructions Indication:Smoker Start:26-Jun-2020 Instruction Type:Provider Instructions for Treatment How to access health informa tion online Indication:BMI 26.0-26.9,adult Start:25-Feb-2020 Instruction Type:Patient Education How to access health informa tion online - Detail Indication:BMI 26.0-26.9,adult Start:25-Feb-2020 Instruction Type:Patient Education Patient Instructions Indication:BMI 26.0-26.9,adult Start:25-Feb-2020 Instruction Type:Provider Instructions for Treatment How to access health informa tion online Indication:Coronary artery disease, non-occlusive Start:29-Aug-2019 Instruction Type:Patient Education How to access health informa tion online - Detail Indication:Coronary artery disease, non-occlusive Start:29-Aug-2019 Instruction Type:Patient Education Patient Instructions Indication:Coronary artery disease, non-occlusive Start:29-Aug-2019 Instruction Type:Provider Instructions for Treatment cardiovascular counseling Indication:Coronary artery disease, non-occlusive Start:08-Aug-2019 Instruction Type:Provider Instructions for Treatment How to access health informa tion online Indication:Cigar smoker Start:08-Aug-2019 Instruction Type:Patient Education How to access health informa tion online - Detail Indication:Cigar smoker Start:08-Aug-2019 Instruction Type:Patient Education Patient Instructions Indication:Cigar smoker Start:08-Aug-2019 Instruction Type:Provider Instructions for Treatment cardiovascular counseling Indication:Coronary artery disease, non-occlusive Start:25-Jul-2018 Instruction Type:Provider Instructions for Treatment How to access health informa tion online Indication:BMI 27.0-27.9,adult Start:25-Jul-2018 Instruction Type:Patient Education How to access health informa tion online - Detail Indication:BMI 27.0-27.9,adult Start:25-Jul-2018 Instruction Type:Patient Education Patient Instructions Indication:BMI 27.0-27.9,adult Start:25-Jul-2018 Instruction Type:Provider Instructions for Treatment How to access health informa tion online Indication:Body mass index 26.0-26.9, adult Start:17-May-2018 Instruction Type:Patient Education How to access health informa tion online - Detail Indication:Body mass index 26.0-26.9, adult Start:17-May-2018 Instruction Type:Patient Education Patient Instructions Indication:Body mass index 26.0-26.9, adult Start:17-May-2018 Instruction Type:Provider Instructions for Treatment How to access health informa tion online Indication:Tobacco Use Start:05-Apr-2018 Instruction Type:Patient Education How to access health informa tion online - Detail Indication:Tobacco Use Start:05-Apr-2018 Instruction Type:Patient Education Patient Instructions Indication:Tobacco Use Start:05-Apr-2018 Instruction Type:Provider Instructions for Treatment How to access health informa tion online Indication:Body mass index 26.0-26.9, adult Start:14-Feb-2018 Instruction Type:Patient Education How to access health informa tion online - Detail Indication:Body mass index 26.0-26.9, adult Start:14-Feb-2018 Instruction Type:Patient Education Patient Instructions Indication:Body mass index 26.0-26.9, adult Start:14-Feb-2018 Instruction Type:Provider Instructions for Treatment How to access health informa tion online Indication:Diabetes mellitus type 2, uncontrolled, without complications Start:08-Nov-2017 Instruction Type:Patient Education How to access health informa tion online - Detail Indication:Diabetes mellitus type 2, uncontrolled, without complications Start:08-Nov-2017 Instruction Type:Patient Education Patient Instructions Indication:Diabetes mellitus type 2, uncontrolled, without complications Start:08-Nov-2017 Instruction Type:Provider Instructions for Treatment cardiovascular counseling Indication:Coronary artery disease, non-occlusive Start:27-Jun-2017 Instruction Type:Provider Instructions for Treatment How to access health informa tion online Indication:Tobacco Use Start:27-Jun-2017 Instruction Type:Patient Education How to access health informa tion online - Detail Indication:Tobacco Use Start:27-Jun-2017 Instruction Type:Patient Education Patient Instructions Indication:Tobacco Use Start:27-Jun-2017 Instruction Type:Provider Instructions for Treatment How to access health informa tion online Indication:Diabetes mellitus type 2, controlled Start:05-May-2017 Instruction Type:Patient Education How to access health informa tion online - Detail Indication:Diabetes mellitus type 2, controlled Start:05-May-2017 Instruction Type:Patient Education Patient Instructions Indication:Diabetes mellitus type 2, controlled Start:05-May-2017 Instruction Type:Provider Instructions for Treatment How to access health informa tion online Indication:Diabetes mellitus type 2, controlled Start:23-Dec-2016 Instruction Type:Patient Education How to access health informa tion online - Detail Indication:Diabetes mellitus type 2, controlled Start:23-Dec-2016 Instruction Type:Patient Education Patient Instructions Indication:Diabetes mellitus type 2, controlled Start:23-Dec-2016 Instruction Type:Provider Instructions for Treatment Patient Instructions Indication:Annual Medicare Physical Start:24-Jun-2016 Instruction Type:Provider Instructions for Treatment cardiovascular counseling Indication:Coronary artery disease, non-occlusive Start:24-Jun-2016 Instruction Type:Provider Instructions for Treatment How to access health informa tion online Indication:Diabetes mellitus type 2, controlled Start:17-Jun-2016 Instruction Type:Patient Education How to access health informa tion online - Detail Indication:Diabetes mellitus type 2, controlled Start:17-Jun-2016 Instruction Type:Patient Education Patient Instructions Indication:Diabetes mellitus type 2, controlled Start:17-Jun-2016 Instruction Type:Provider Instructions for Treatment How to access health informa tion online Indication:Diabetes mellitus type 2, controlled Start:13-Feb-2016 Instruction Type:Patient Education How to access health informa tion online - Detail Indication:Diabetes mellitus type 2, controlled Start:13-Feb-2016 Instruction Type:Patient Education Patient Instructions Indication:Diabetes mellitus type 2, controlled Start:13-Feb-2016 Instruction Type:Provider Instructions for Treatment How to access health informa tion online Indication:Diabetes mellitus type 2, controlled Start:12-Nov-2015 Instruction Type:Patient Education How to access health informa tion online - Detail Indication:Diabetes mellitus type 2, controlled Start:12-Nov-2015 Instruction Type:Patient Education Patient Instructions Indication:Diabetes mellitus type 2, controlled Start:12-Nov-2015 Instruction Type:Provider Instructions for Treatment Patient Instructions Indication:COPD, moderate Start:17-Jul-2015 Instruction Type:Provider Instructions for Treatment How to access health informa tion online Indication:Diabetes mellitus type 2, uncontrolled, without complications Start:08-Jul-2015 Instruction Type:Patient Education How to access health informa tion online - Detail Indication:Diabetes mellitus type 2, uncontrolled, without complications Start:08-Jul-2015 Instruction Type:Patient Education Patient Instructions Indication:Diabetes mellitus type 2, uncontrolled, without complications Start:08-Jul-2015 Instruction Type:Provider Instructions for Treatment cardiovascular counseling Indication:Coronary artery disease, non-occlusive Start:19-Jun-2015 Instruction Type:Provider Instructions for Treatment How to access health informa tion online Indication:Annual Medicare Physical Start:19-Jun-2015 Instruction Type:Patient Education How to access health informa tion online - Detail Indication:Annual Medicare Physical Start:19-Jun-2015 Instruction Type:Patient Education Patient Instructions Indication:Annual Medicare Physical Start:19-Jun-2015 Instruction Type:Provider Instructions for Treatment How to access health informa tion online Indication:Diabetes mellitus type 2, controlled Start:10-Apr-2015 Instruction Type:Patient Education How to access health informa tion online - Detail Indication:Diabetes mellitus type 2, controlled Start:10-Apr-2015 Instruction Type:Patient Education Patient Instructions Indication:Diabetes mellitus type 2, controlled Start:10-Apr-2015 Instruction Type:Provider Instructions for Treatment Patient Instructions Indication:Diabetes mellitus type 2, controlled Start:09-Jan-2015 Instruction Type:Provider Instructions for Treatment Patient Instructions Indication:Coronary artery disease, non-occlusive Start:10-Oct-2014 Instruction Type:Provider Instructions for Treatment How to access health informa tion online Indication:Diabetes mellitus type 2, uncontrolled, without complications Start:05-Jul-2014 Instruction Type:Patient Education How to access health informa tion online - Detail Indication:Diabetes mellitus type 2, uncontrolled, without complications Start:05-Jul-2014 Instruction Type:Patient Education Patient Instructions Indication:Diabetes mellitus type 2, uncontrolled, without complications Start:05-Jul-2014 Instruction Type:Provider Instructions for Treatment cardiovascular counseling Indication:Coronary artery disease, non-occlusive Start:11-Jun-2014 Instruction Type:Provider Instructions for Treatment How to access health informa tion online Indication:Diabetes mellitus type 2, controlled Start:04-Apr-2014 Instruction Type:Patient Education How to access health informa tion online - Detail Indication:Diabetes mellitus type 2, controlled Start:04-Apr-2014 Instruction Type:Patient Education Patient Instructions Indication:Diabetes mellitus type 2, controlled Start:04-Apr-2014 Instruction Type:Provider Instructions for Treatment Patient Instructions Indication:Diabetes mellitus type 2, controlled Start:03-Jan-2014 Instruction Type:Provider Instructions for Treatment cardiovascular counseling Indication:Coronary artery disease, non-occlusive Start:20-Jun-2013 Instruction Type:Provider Instructions for Treatment Patient Instructions Indication:Diabetes mellitus type 2, controlled Start:20-Jun-2013 Instruction Type:Provider Instructions for Treatment Patient Instructions Indication:COPD, moderate Start:11-Oct-2012 Instruction Type:Provider Instructions for Treatment Patient Instructions Indication:Coronary artery disease, non-occlusive Start:07-Jul-2012 Instruction Type:Provider Instructions for Treatment [facility]; [facility] Work Phone: Instructions* Name Dates Details Patient Instructions Indication:BMI 26.0-26.9,adult Start:29-Nov-2022 Instruction Type:Provider Instructions for Treatment How to Access Health Informa tion Online using Patient Portal and [employer] Indication:BMI 26.0-26.9,adult Start:29-Nov-2022 Instruction Type:Patient Education Patient Instructions Indication:BMI 26.0-26.9,adult Start:28-Jul-2022 Instruction Type:Provider Instructions for Treatment How to Access Health Informa tion Online using Patient Portal and [employer] Indication:BMI 26.0-26.9,adult Start:28-Jul-2022 Instruction Type:Patient Education cardiovascular counseling Indication:Coronary artery disease, non-occlusive Start:16-Jul-2022 Instruction Type:Provider Instructions for Treatment Patient Instructions Indication:BMI 25.0-25.9,adult Start:16-Jul-2022 Instruction Type:Provider Instructions for Treatment How to Access Health Informa tion Online using Patient Portal and [employer] Indication:BMI 25.0-25.9,adult Start:16-Jul-2022 Instruction Type:Patient Education Patient Instructions Indication:Diabetes mellitus type 2, controlled Start:07-Jun-2022 Instruction Type:Provider Instructions for Treatment How to Access Health Informa tion Online using Patient Portal and [employer] Indication:Diabetes mellitus type 2, controlled Start:07-Jun-2022 Instruction Type:Patient Education Patient Instructions Indication:BMI 26.0-26.9,adult Start:21-Jan-2022 Instruction Type:Provider Instructions for Treatment How to Access Health Informa tion Online using Patient Portal and [employer] Indication:BMI 26.0-26.9,adult Start:21-Jan-2022 Instruction Type:Patient Education Patient Instructions Indication:Smoker Start:16-Oct-2021 Instruction Type:Provider Instructions for Treatment How to Access Health Informa tion Online using Patient Portal and [employer] Indication:Smoker Start:16-Oct-2021 Instruction Type:Patient Education cardiovascular counseling Indication:Coronary artery disease, non-occlusive Start:11-Aug-2020 Instruction Type:Provider Instructions for Treatment How to access health informa tion online Indication:BMI 26.0-26.9,adult Start:11-Aug-2020 Instruction Type:Patient Education How to access health informa tion online - Detail Indication:BMI 26.0-26.9,adult Start:11-Aug-2020 Instruction Type:Patient Education Patient Instructions Indication:BMI 26.0-26.9,adult Start:11-Aug-2020 Instruction Type:Provider Instructions for Treatment How to access health informa tion online Indication:Smoker Start:1-Oct-2020 Instruction Type:Patient Education How to access health informa tion online - Detail Indication:Smoker Start:26-Jun-2020 Instruction Type:Patient Education Patient Instructions Indication:Smoker Start:26-Jun-2020 Instruction Type:Provider Instructions for Treatment How to access health informa tion online Indication:BMI 26.0-26.9,adult Start:25-Feb-2020 Instruction Type:Patient Education How to access health informa tion online - Detail Indication:BMI 26.0-26.9,adult Start:25-Feb-2020 Instruction Type:Patient Education Patient Instructions Indication:BMI 26.0-26.9,adult Start:25-Feb-2020 Instruction Type:Provider Instructions for Treatment How to access health informa tion online Indication:Coronary artery disease, non-occlusive Start:29-Aug-2019 Instruction Type:Patient Education How to access health informa tion online - Detail Indication:Coronary artery disease, non-occlusive Start:29-Aug-2019 Instruction Type:Patient Education Patient Instructions Indication:Coronary artery disease, non-occlusive Start:29-Aug-2019 Instruction Type:Provider Instructions for Treatment cardiovascular counseling Indication:Coronary artery disease, non-occlusive Start:08-Aug-2019 Instruction Type:Provider Instructions for Treatment How to access health informa tion online Indication:Cigar smoker Start:08-Aug-2019 Instruction Type:Patient Education How to access health informa tion online - Detail Indication:Cigar smoker Start:08-Aug-2019 Instruction Type:Patient Education Patient Instructions Indication:Cigar smoker Start:08-Aug-2019 Instruction Type:Provider Instructions for Treatment cardiovascular counseling Indication:Coronary artery disease, non-occlusive Start:25-Jul-2018 Instruction Type:Provider Instructions for Treatment How to access health informa tion online Indication:BMI 27.0-27.9,adult Start:25-Jul-2018 Instruction Type:Patient Education How to access health informa tion online - Detail Indication:BMI 27.0-27.9,adult Start:25-Jul-2018 Instruction Type:Patient Education Patient Instructions Indication:BMI 27.0-27.9,adult Start:25-Jul-2018 Instruction Type:Provider Instructions for Treatment How to access health informa tion online Indication:Body mass index 26.0-26.9, adult Start:17-May-2018 Instruction Type:Patient Education How to access health informa tion online - Detail Indication:Body mass index 26.0-26.9, adult Start:17-May-2018 Instruction Type:Patient Education Patient Instructions Indication:Body mass index 26.0-26.9, adult Start:17-May-2018 Instruction Type:Provider Instructions for Treatment How to access health informa tion online Indication:Tobacco Use Start:05-Apr-2018 Instruction Type:Patient Education How to access health informa tion online - Detail Indication:Tobacco Use Start:05-Apr-2018 Instruction Type:Patient Education Patient Instructions Indication:Tobacco Use Start:05-Apr-2018 Instruction Type:Provider Instructions for Treatment How to access health informa tion online Indication:Body mass index 26.0-26.9, adult Start:14-Feb-2018 Instruction Type:Patient Education How to access health informa tion online - Detail Indication:Body mass index 26.0-26.9, adult Start:14-Feb-2018 Instruction Type:Patient Education Patient Instructions Indication:Body mass index 26.0-26.9, adult Start:14-Feb-2018 Instruction Type:Provider Instructions for Treatment How to access health informa tion online Indication:Diabetes mellitus type 2, uncontrolled, without complications Start:08-Nov-2017 Instruction Type:Patient Education How to access health informa tion online - Detail Indication:Diabetes mellitus type 2, uncontrolled, without complications Start:08-Nov-2017 Instruction Type:Patient Education Patient Instructions Indication:Diabetes mellitus type 2, uncontrolled, without complications Start:08-Nov-2017 Instruction Type:Provider Instructions for Treatment cardiovascular counseling Indication:Coronary artery disease, non-occlusive Start:27-Jun-2017 Instruction Type:Provider Instructions for Treatment How to access health informa tion online Indication:Tobacco Use Start:27-Jun-2017 Instruction Type:Patient Education How to access health informa tion online - Detail Indication:Tobacco Use Start:27-Jun-2017 Instruction Type:Patient Education Patient Instructions Indication:Tobacco Use Start:27-Jun-2017 Instruction Type:Provider Instructions for Treatment How to access health informa tion online Indication:Diabetes mellitus type 2, controlled Start:05-May-2017 Instruction Type:Patient Education How to access health informa tion online - Detail Indication:Diabetes mellitus type 2, controlled Start:05-May-2017 Instruction Type:Patient Education Patient Instructions Indication:Diabetes mellitus type 2, controlled Start:05-May-2017 Instruction Type:Provider Instructions for Treatment How to access health informa tion online Indication:Diabetes mellitus type 2, controlled Start:23-Dec-2016 Instruction Type:Patient Education How to access health informa tion online - Detail Indication:Diabetes mellitus type 2, controlled Start:23-Dec-2016 Instruction Type:Patient Education Patient Instructions Indication:Diabetes mellitus type 2, controlled Start:23-Dec-2016 Instruction Type:Provider Instructions for Treatment Patient Instructions Indication:Annual Medicare Physical Start:24-Jun-2016 Instruction Type:Provider Instructions for Treatment cardiovascular counseling Indication:Coronary artery disease, non-occlusive Start:24-Jun-2016 Instruction Type:Provider Instructions for Treatment How to access health informa tion online Indication:Diabetes mellitus type 2, controlled Start:17-Jun-2016 Instruction Type:Patient Education How to access health informa tion online - Detail Indication:Diabetes mellitus type 2, controlled Start:17-Jun-2016 Instruction Type:Patient Education Patient Instructions Indication:Diabetes mellitus type 2, controlled Start:17-Jun-2016 Instruction Type:Provider Instructions for Treatment How to access health informa tion online Indication:Diabetes mellitus type 2, controlled Start:13-Feb-2016 Instruction Type:Patient Education How to access health informa tion online - Detail Indication:Diabetes mellitus type 2, controlled Start:13-Feb-2016 Instruction Type:Patient Education Patient Instructions Indication:Diabetes mellitus type 2, controlled Start:13-Feb-2016 Instruction Type:Provider Instructions for Treatment How to access health informa tion online Indication:Diabetes mellitus type 2, controlled Start:12-Nov-2015 Instruction Type:Patient Education How to access health informa tion online - Detail Indication:Diabetes mellitus type 2, controlled Start:12-Nov-2015 Instruction Type:Patient Education Patient Instructions Indication:Diabetes mellitus type 2, controlled Start:12-Nov-2015 Instruction Type:Provider Instructions for Treatment Patient Instructions Indication:COPD, moderate Start:17-Jul-2015 Instruction Type:Provider Instructions for Treatment How to access health informa tion online Indication:Diabetes mellitus type 2, uncontrolled, without complications Start:08-Jul-2015 Instruction Type:Patient Education How to access health informa tion online - Detail Indication:Diabetes mellitus type 2, uncontrolled, without complications Start:08-Jul-2015 Instruction Type:Patient Education Patient Instructions Indication:Diabetes mellitus type 2, uncontrolled, without complications Start:08-Jul-2015 Instruction Type:Provider Instructions for Treatment cardiovascular counseling Indication:Coronary artery disease, non-occlusive Start:19-Jun-2015 Instruction Type:Provider Instructions for Treatment How to access health informa tion online Indication:Annual Medicare Physical Start:19-Jun-2015 Instruction Type:Patient Education How to access health informa tion online - Detail Indication:Annual Medicare Physical Start:19-Jun-2015 Instruction Type:Patient Education Patient Instructions Indication:Annual Medicare Physical Start:19-Jun-2015 Instruction Type:Provider Instructions for Treatment How to access health informa tion online Indication:Diabetes mellitus type 2, controlled Start:10-Apr-2015 Instruction Type:Patient Education How to access health informa tion online - Detail Indication:Diabetes mellitus type 2, controlled Start:10-Apr-2015 Instruction Type:Patient Education Patient Instructions Indication:Diabetes mellitus type 2, controlled Start:10-Apr-2015 Instruction Type:Provider Instructions for Treatment Patient Instructions Indication:Diabetes mellitus type 2, controlled Start:09-Jan-2015 Instruction Type:Provider Instructions for Treatment Patient Instructions Indication:Coronary artery disease, non-occlusive Start:10-Oct-2014 Instruction Type:Provider Instructions for Treatment How to access health informa tion online Indication:Diabetes mellitus type 2, uncontrolled, without complications Start:05-Jul-2014 Instruction Type:Patient Education How to access health informa tion online - Detail Indication:Diabetes mellitus type 2, uncontrolled, without complications Start:05-Jul-2014 Instruction Type:Patient Education Patient Instructions Indication:Diabetes mellitus type 2, uncontrolled, without complications Start:05-Jul-2014 Instruction Type:Provider Instructions for Treatment cardiovascular counseling Indication:Coronary artery disease, non-occlusive Start:11-Jun-2014 Instruction Type:Provider Instructions for Treatment How to access health informa tion online Indication:Diabetes mellitus type 2, controlled Start:04-Apr-2014 Instruction Type:Patient Education How to access health informa tion online - Detail Indication:Diabetes mellitus type 2, controlled Start:04-Apr-2014 Instruction Type:Patient Education Patient Instructions Indication:Diabetes mellitus type 2, controlled Start:04-Apr-2014 Instruction Type:Provider Instructions for Treatment Patient Instructions Indication:Diabetes mellitus type 2, controlled Start:03-Jan-2014 Instruction Type:Provider Instructions for Treatment cardiovascular counseling Indication:Coronary artery disease, non-occlusive Start:20-Jun-2013 Instruction Type:Provider Instructions for Treatment Patient Instructions Indication:Diabetes mellitus type 2, controlled Start:20-Jun-2013 Instruction Type:Provider Instructions for Treatment Patient Instructions Indication:COPD, moderate Start:11-Oct-2012 Instruction Type:Provider Instructions for Treatment Patient Instructions Indication:Coronary artery disease, non-occlusive Start:07-Jul-2012 Instruction Type:Provider Instructions for Treatment [facility]; [facility] Work Phone: Instructions* Name Dates Details Patient Instructions Indication:BMI 26.0-26.9,adult Start:29-Nov-2022 Instruction Type:Provider Instructions for Treatment How to Access Health Informa tion Online using Patient Portal and [employer]rd [employer] Apps Indication:BMI 26.0-26.9,adult Start:29-Nov-2022 Instruction Type:Patient Education Patient Instructions Indication:BMI 26.0-26.9,adult Start:28-Jul-2022 Instruction Type:Provider Instructions for Treatment How to Access Health Informa tion Online using Patient Portal and [employer]rd [employer] Apps Indication:BMI 26.0-26.9,adult Start:28-Jul-2022 Instruction Type:Patient Education cardiovascular counseling Indication:Coronary artery disease, non-occlusive Start:16-Jul-2022 Instruction Type:Provider Instructions for Treatment Patient Instructions Indication:BMI 25.0-25.9,adult Start:16-Jul-2022 Instruction Type:Provider Instructions for Treatment How to Access Health Informa tion Online using Patient Portal and [employer]rd [employer] Apps Indication:BMI 25.0-25.9,adult Start:16-Jul-2022 Instruction Type:Patient Education Patient Instructions Indication:Diabetes mellitus type 2, controlled Start:07-Jun-2022 Instruction Type:Provider Instructions for Treatment How to Access Health Informa tion Online using Patient Portal and [employer]rd [employer] Apps Indication:Diabetes mellitus type 2, controlled Start:07-Jun-2022 Instruction Type:Patient Education Patient Instructions Indication:BMI 26.0-26.9,adult Start:21-Jan-2022 Instruction Type:Provider Instructions for Treatment How to Access Health Informa tion Online using Patient Portal and [employer]rd [employer] Apps Indication:BMI 26.0-26.9,adult Start:21-Jan-2022 Instruction Type:Patient Education Patient Instructions Indication:Smoker Start:16-Oct-2021 Instruction Type:Provider Instructions for Treatment How to Access Health Informa tion Online using Patient Portal and [employer]rd [employer] Apps Indication:Smoker Start:16-Oct-2021 Instruction Type:Patient Education cardiovascular counseling Indication:Coronary artery disease, non-occlusive Start:11-Aug-2020 Instruction Type:Provider Instructions for Treatment How to access health informa tion online Indication:BMI 26.0-26.9,adult Start:11-Aug-2020 Instruction Type:Patient Education How to access health informa tion online - Detail Indication:BMI 26.0-26.9,adult Start:11-Aug-2020 Instruction Type:Patient Education Patient Instructions Indication:BMI 26.0-26.9,adult Start:11-Aug-2020 Instruction Type:Provider Instructions for Treatment How to access health informa tion online Indication:Smoker Start:26-Jun-2020 Instruction Type:Patient Education How to access health informa tion online - Detail Indication:Smoker Start:26-Jun-2020 Instruction Type:Patient Education Patient Instructions Indication:Smoker Start:26-Jun-2020 Instruction Type:Provider Instructions for Treatment How to access health informa tion online Indication:BMI 26.0-26.9,adult Start:25-Feb-2020 Instruction Type:Patient Education How to access health informa tion online - Detail Indication:BMI 26.0-26.9,adult Start:25-Feb-2020 Instruction Type:Patient Education Patient Instructions Indication:BMI 26.0-26.9,adult Start:25-Feb-2020 Instruction Type:Provider Instructions for Treatment How to access health informa tion online Indication:Coronary artery disease, non-occlusive Start:29-Aug-2019 Instruction Type:Patient Education How to access health informa tion online - Detail Indication:Coronary artery disease, non-occlusive Start:29-Aug-2019 Instruction Type:Patient Education Patient Instructions Indication:Coronary artery disease, non-occlusive Start:29-Aug-2019 Instruction Type:Provider Instructions for Treatment cardiovascular counseling Indication:Coronary artery disease, non-occlusive Start:08-Aug-2019 Instruction Type:Provider Instructions for Treatment How to access health informa tion online Indication:Cigar smoker Start:08-Aug-2019 Instruction Type:Patient Education How to access health informa tion online - Detail Indication:Cigar smoker Start:08-Aug-2019 Instruction Type:Patient Education Patient Instructions Indication:Cigar smoker Start:08-Aug-2019 Instruction Type:Provider Instructions for Treatment cardiovascular counseling Indication:Coronary artery disease, non-occlusive Start:25-Jul-2018 Instruction Type:Provider Instructions for Treatment How to access health informa tion online Indication:BMI 27.0-27.9,adult Start:25-Jul-2018 Instruction Type:Patient Education How to access health informa tion online - Detail Indication:BMI 27.0-27.9,adult Start:25-Jul-2018 Instruction Type:Patient Education Patient Instructions Indication:BMI 27.0-27.9,adult Start:25-Jul-2018 Instruction Type:Provider Instructions for Treatment How to access health informa tion online Indication:Body mass index 26.0-26.9, adult Start:17-May-2018 Instruction Type:Patient Education How to access health informa tion online - Detail Indication:Body mass index 26.0-26.9, adult Start:17-May-2018 Instruction Type:Patient Education Patient Instructions Indication:Body mass index 26.0-26.9, adult Start:17-May-2018 Instruction Type:Provider Instructions for Treatment How to access health informa tion online Indication:Tobacco Use Start:05-Apr-2018 Instruction Type:Patient Education How to access health informa tion online - Detail Indication:Tobacco Use Start:05-Apr-2018 Instruction Type:Patient Education Patient Instructions Indication:Tobacco Use Start:05-Apr-2018 Instruction Type:Provider Instructions for Treatment How to access health informa tion online Indication:Body mass index 26.0-26.9, adult Start:14-Feb-2018 Instruction Type:Patient Education How to access health informa tion online - Detail Indication:Body mass index 26.0-26.9, adult Start:14-Feb-2018 Instruction Type:Patient Education Patient Instructions Indication:Body mass index 26.0-26.9, adult Start:14-Feb-2018 Instruction Type:Provider Instructions for Treatment How to access health informa tion online Indication:Diabetes mellitus type 2, uncontrolled, without complications Start:08-Nov-2017 Instruction Type:Patient Education How to access health informa tion online - Detail Indication:Diabetes mellitus type 2, uncontrolled, without complications Start:08-Nov-2017 Instruction Type:Patient Education Patient Instructions Indication:Diabetes mellitus type 2, uncontrolled, without complications Start:08-Nov-2017 Instruction Type:Provider Instructions for Treatment cardiovascular counseling Indication:Coronary artery disease, non-occlusive Start:27-Jun-2017 Instruction Type:Provider Instructions for Treatment How to access health informa tion online Indication:Tobacco Use Start:27-Jun-2017 Instruction Type:Patient Education How to access health informa tion online - Detail Indication:Tobacco Use Start:27-Jun-2017 Instruction Type:Patient Education Patient Instructions Indication:Tobacco Use Start:27-Jun-2017 Instruction Type:Provider Instructions for Treatment How to access health informa tion online Indication:Diabetes mellitus type 2, controlled Start:05-May-2017 Instruction Type:Patient Education How to access health informa tion online - Detail Indication:Diabetes mellitus type 2, controlled Start:05-May-2017 Instruction Type:Patient Education Patient Instructions Indication:Diabetes mellitus type 2, controlled Start:05-May-2017 Instruction Type:Provider Instructions for Treatment How to access health informa tion online Indication:Diabetes mellitus type 2, controlled Start:23-Dec-2016 Instruction Type:Patient Education How to access health informa tion online - Detail Indication:Diabetes mellitus type 2, controlled Start:23-Dec-2016 Instruction Type:Patient Education Patient Instructions Indication:Diabetes mellitus type 2, controlled Start:23-Dec-2016 Instruction Type:Provider Instructions for Treatment Patient Instructions Indication:Annual Medicare Physical Start:24-Jun-2016 Instruction Type:Provider Instructions for Treatment cardiovascular counseling Indication:Coronary artery disease, non-occlusive Start:24-Jun-2016 Instruction Type:Provider Instructions for Treatment How to access health informa tion online Indication:Diabetes mellitus type 2, controlled Start:17-Jun-2016 Instruction Type:Patient Education How to access health informa tion online - Detail Indication:Diabetes mellitus type 2, controlled Start:17-Jun-2016 Instruction Type:Patient Education Patient Instructions Indication:Diabetes mellitus type 2, controlled Start:17-Jun-2016 Instruction Type:Provider Instructions for Treatment How to access health informa tion online Indication:Diabetes mellitus type 2, controlled Start:13-Feb-2016 Instruction Type:Patient Education How to access health informa tion online - Detail Indication:Diabetes mellitus type 2, controlled Start:13-Feb-2016 Instruction Type:Patient Education Patient Instructions Indication:Diabetes mellitus type 2, controlled Start:13-Feb-2016 Instruction Type:Provider Instructions for Treatment How to access health informa tion online Indication:Diabetes mellitus type 2, controlled Start:12-Nov-2015 Instruction Type:Patient Education How to access health informa tion online - Detail Indication:Diabetes mellitus type 2, controlled Start:12-Nov-2015 Instruction Type:Patient Education Patient Instructions Indication:Diabetes mellitus type 2, controlled Start:12-Nov-2015 Instruction Type:Provider Instructions for Treatment Patient Instructions Indication:COPD, moderate Start:17-Jul-2015 Instruction Type:Provider Instructions for Treatment How to access health informa tion online Indication:Diabetes mellitus type 2, uncontrolled, without complications Start:08-Jul-2015 Instruction Type:Patient Education How to access health informa tion online - Detail Indication:Diabetes mellitus type 2, uncontrolled, without complications Start:08-Jul-2015 Instruction Type:Patient Education Patient Instructions Indication:Diabetes mellitus type 2, uncontrolled, without complications Start:08-Jul-2015 Instruction Type:Provider Instructions for Treatment cardiovascular counseling Indication:Coronary artery disease, non-occlusive Start:19-Jun-2015 Instruction Type:Provider Instructions for Treatment How to access health informa tion online Indication:Annual Medicare Physical Start:19-Jun-2015 Instruction Type:Patient Education How to access health informa tion online - Detail Indication:Annual Medicare Physical Start:19-Jun-2015 Instruction Type:Patient Education Patient Instructions Indication:Annual Medicare Physical Start:19-Jun-2015 Instruction Type:Provider Instructions for Treatment How to access health informa tion online Indication:Diabetes mellitus type 2, controlled Start:10-Apr-2015 Instruction Type:Patient Education How to access health informa tion online - Detail Indication:Diabetes mellitus type 2, controlled Start:10-Apr-2015 Instruction Type:Patient Education Patient Instructions Indication:Diabetes mellitus type 2, controlled Start:10-Apr-2015 Instruction Type:Provider Instructions for Treatment Patient Instructions Indication:Diabetes mellitus type 2, controlled Start:09-Jan-2015 Instruction Type:Provider Instructions for Treatment Patient Instructions Indication:Coronary artery disease, non-occlusive Start:10-Oct-2014 Instruction Type:Provider Instructions for Treatment How to access health informa tion online Indication:Diabetes mellitus type 2, uncontrolled, without complications Start:05-Jul-2014 Instruction Type:Patient Education How to access health informa tion online - Detail Indication:Diabetes mellitus type 2, uncontrolled, without complications Start:05-Jul-2014 Instruction Type:Patient Education Patient Instructions Indication:Diabetes mellitus type 2, uncontrolled, without complications Start:05-Jul-2014 Instruction Type:Provider Instructions for Treatment cardiovascular counseling Indication:Coronary artery disease, non-occlusive Start:11-Jun-2014 Instruction Type:Provider Instructions for Treatment How to access health informa tion online Indication:Diabetes mellitus type 2, controlled Start:04-Apr-2014 Instruction Type:Patient Education How to access health informa tion online - Detail Indication:Diabetes mellitus type 2, controlled Start:04-Apr-2014 Instruction Type:Patient Education Patient Instructions Indication:Diabetes mellitus type 2, controlled Start:04-Apr-2014 Instruction Type:Provider Instructions for Treatment Patient Instructions Indication:Diabetes mellitus type 2, controlled Start:03-Jan-2014 Instruction Type:Provider Instructions for Treatment cardiovascular counseling Indication:Coronary artery disease, non-occlusive Start:20-Jun-2013 Instruction Type:Provider Instructions for Treatment Patient Instructions Indication:Diabetes mellitus type 2, controlled Start:20-Jun-2013 Instruction Type:Provider Instructions for Treatment Patient Instructions Indication:COPD, moderate Start:11-Oct-2012 Instruction Type:Provider Instructions for Treatment Patient Instructions Indication:Coronary artery disease, non-occlusive Start:07-Jul-2012 Instruction Type:Provider Instructions for Treatment [facility]; [facility] Work Phone: Instructions* Name Dates Details Patient Instructions Indication:BMI 26.0-26.9,adult Start:29-Nov-2022 Instruction Type:Provider Instructions for Treatment How to Access Health Informa tion Online using Patient Portal and [employer]rd [employer] Apps Indication:BMI 26.0-26.9,adult Start:29-Nov-2022 Instruction Type:Patient Education Patient Instructions Indication:BMI 26.0-26.9,adult Start:28-Jul-2022 Instruction Type:Provider Instructions for Treatment How to Access Health Informa tion Online using Patient Portal and [employer]rd [employer] Apps Indication:BMI 26.0-26.9,adult Start:28-Jul-2022 Instruction Type:Patient Education cardiovascular counseling Indication:Coronary artery disease, non-occlusive Start:16-Jul-2022 Instruction Type:Provider Instructions for Treatment Patient Instructions Indication:BMI 25.0-25.9,adult Start:16-Jul-2022 Instruction Type:Provider Instructions for Treatment How to Access Health Informa tion Online using Patient Portal and [employer] Apps Indication:BMI 25.0-25.9,adult Start:16-Jul-2022 Instruction Type:Patient Education Patient Instructions Indication:Diabetes mellitus type 2, controlled Start:07-Jun-2022 Instruction Type:Provider Instructions for Treatment How to Access Health Informa tion Online using Patient Portal and [employer] Apps Indication:Diabetes mellitus type 2, controlled Start:07-Jun-2022 Instruction Type:Patient Education Patient Instructions Indication:BMI 26.0-26.9,adult Start:21-Jan-2022 Instruction Type:Provider Instructions for Treatment How to Access Health Informa tion Online using Patient Portal and [employer]rd [employer] Apps Indication:BMI 26.0-26.9,adult Start:21-Jan-2022 Instruction Type:Patient Education Patient Instructions Indication:Smoker Start:16-Oct-2021 Instruction Type:Provider Instructions for Treatment How to Access Health Informa tion Online using Patient Portal and [employer]rd [employer] Apps Indication:Smoker Start:16-Oct-2021 Instruction Type:Patient Education cardiovascular counseling Indication:Coronary artery disease, non-occlusive Start:11-Aug-2020 Instruction Type:Provider Instructions for Treatment How to access health informa tion online Indication:BMI 26.0-26.9,adult Start:11-Aug-2020 Instruction Type:Patient Education How to access health informa tion online - Detail Indication:BMI 26.0-26.9,adult Start:11-Aug-2020 Instruction Type:Patient Education Patient Instructions Indication:BMI 26.0-26.9,adult Start:11-Aug-2020 Instruction Type:Provider Instructions for Treatment How to access health informa tion online Indication:Smoker Start:26-Jun-2020 Instruction Type:Patient Education How to access health informa tion online - Detail Indication:Smoker Start:26-Jun-2020 Instruction Type:Patient Education Patient Instructions Indication:Smoker Start:26-Jun-2020 Instruction Type:Provider Instructions for Treatment How to access health informa tion online Indication:BMI 26.0-26.9,adult Start:25-Feb-2020 Instruction Type:Patient Education How to access health informa tion online - Detail Indication:BMI 26.0-26.9,adult Start:25-Feb-2020 Instruction Type:Patient Education Patient Instructions Indication:BMI 26.0-26.9,adult Start:25-Feb-2020 Instruction Type:Provider Instructions for Treatment How to access health informa tion online Indication:Coronary artery disease, non-occlusive Start:29-Aug-2019 Instruction Type:Patient Education How to access health informa tion online - Detail Indication:Coronary artery disease, non-occlusive Start:29-Aug-2019 Instruction Type:Patient Education Patient Instructions Indication:Coronary artery disease, non-occlusive Start:29-Aug-2019 Instruction Type:Provider Instructions for Treatment cardiovascular counseling Indication:Coronary artery disease, non-occlusive Start:08-Aug-2019 Instruction Type:Provider Instructions for Treatment How to access health informa tion online Indication:Cigar smoker Start:08-Aug-2019 Instruction Type:Patient Education How to access health informa tion online - Detail Indication:Cigar smoker Start:08-Aug-2019 Instruction Type:Patient Education Patient Instructions Indication:Cigar smoker Start:08-Aug-2019 Instruction Type:Provider Instructions for Treatment cardiovascular counseling Indication:Coronary artery disease, non-occlusive Start:25-Jul-2018 Instruction Type:Provider Instructions for Treatment How to access health informa tion online Indication:BMI 27.0-27.9,adult Start:25-Jul-2018 Instruction Type:Patient Education How to access health informa tion online - Detail Indication:BMI 27.0-27.9,adult Start:25-Jul-2018 Instruction Type:Patient Education Patient Instructions Indication:BMI 27.0-27.9,adult Start:25-Jul-2018 Instruction Type:Provider Instructions for Treatment How to access health informa tion online Indication:Body mass index 26.0-26.9, adult Start:17-May-2018 Instruction Type:Patient Education How to access health informa tion online - Detail Indication:Body mass index 26.0-26.9, adult Start:17-May-2018 Instruction Type:Patient Education Patient Instructions Indication:Body mass index 26.0-26.9, adult Start:17-May-2018 Instruction Type:Provider Instructions for Treatment How to access health informa tion online Indication:Tobacco Use Start:05-Apr-2018 Instruction Type:Patient Education How to access health informa tion online - Detail Indication:Tobacco Use Start:05-Apr-2018 Instruction Type:Patient Education Patient Instructions Indication:Tobacco Use Start:05-Apr-2018 Instruction Type:Provider Instructions for Treatment How to access health informa tion online Indication:Body mass index 26.0-26.9, adult Start:14-Feb-2018 Instruction Type:Patient Education How to access health informa tion online - Detail Indication:Body mass index 26.0-26.9, adult Start:14-Feb-2018 Instruction Type:Patient Education Patient Instructions Indication:Body mass index 26.0-26.9, adult Start:14-Feb-2018 Instruction Type:Provider Instructions for Treatment How to access health informa tion online Indication:Diabetes mellitus type 2, uncontrolled, without complications Start:08-Nov-2017 Instruction Type:Patient Education How to access health informa tion online - Detail Indication:Diabetes mellitus type 2, uncontrolled, without complications Start:08-Nov-2017 Instruction Type:Patient Education Patient Instructions Indication:Diabetes mellitus type 2, uncontrolled, without complications Start:08-Nov-2017 Instruction Type:Provider Instructions for Treatment cardiovascular counseling Indication:Coronary artery disease, non-occlusive Start:27-Jun-2017 Instruction Type:Provider Instructions for Treatment How to access health informa tion online Indication:Tobacco Use Start:27-Jun-2017 Instruction Type:Patient Education How to access health informa tion online - Detail Indication:Tobacco Use Start:27-Jun-2017 Instruction Type:Patient Education Patient Instructions Indication:Tobacco Use Start:27-Jun-2017 Instruction Type:Provider Instructions for Treatment How to access health informa tion online Indication:Diabetes mellitus type 2, controlled Start:05-May-2017 Instruction Type:Patient Education How to access health informa tion online - Detail Indication:Diabetes mellitus type 2, controlled Start:05-May-2017 Instruction Type:Patient Education Patient Instructions Indication:Diabetes mellitus type 2, controlled Start:05-May-2017 Instruction Type:Provider Instructions for Treatment How to access health informa tion online Indication:Diabetes mellitus type 2, controlled Start:23-Dec-2016 Instruction Type:Patient Education How to access health informa tion online - Detail Indication:Diabetes mellitus type 2, controlled Start:23-Dec-2016 Instruction Type:Patient Education Patient Instructions Indication:Diabetes mellitus type 2, controlled Start:23-Dec-2016 Instruction Type:Provider Instructions for Treatment Patient Instructions Indication:Annual Medicare Physical Start:24-Jun-2016 Instruction Type:Provider Instructions for Treatment cardiovascular counseling Indication:Coronary artery disease, non-occlusive Start:24-Jun-2016 Instruction Type:Provider Instructions for Treatment How to access health informa tion online Indication:Diabetes mellitus type 2, controlled Start:17-Jun-2016 Instruction Type:Patient Education How to access health informa tion online - Detail Indication:Diabetes mellitus type 2, controlled Start:17-Jun-2016 Instruction Type:Patient Education Patient Instructions Indication:Diabetes mellitus type 2, controlled Start:17-Jun-2016 Instruction Type:Provider Instructions for Treatment How to access health informa tion online Indication:Diabetes mellitus type 2, controlled Start:13-Feb-2016 Instruction Type:Patient Education How to access health informa tion online - Detail Indication:Diabetes mellitus type 2, controlled Start:13-Feb-2016 Instruction Type:Patient Education Patient Instructions Indication:Diabetes mellitus type 2, controlled Start:13-Feb-2016 Instruction Type:Provider Instructions for Treatment How to access health informa tion online Indication:Diabetes mellitus type 2, controlled Start:12-Nov-2015 Instruction Type:Patient Education How to access health informa tion online - Detail Indication:Diabetes mellitus type 2, controlled Start:12-Nov-2015 Instruction Type:Patient Education Patient Instructions Indication:Diabetes mellitus type 2, controlled Start:12-Nov-2015 Instruction Type:Provider Instructions for Treatment Patient Instructions Indication:COPD, moderate Start:17-Jul-2015 Instruction Type:Provider Instructions for Treatment How to access health informa tion online Indication:Diabetes mellitus type 2, uncontrolled, without complications Start:08-Jul-2015 Instruction Type:Patient Education How to access health informa tion online - Detail Indication:Diabetes mellitus type 2, uncontrolled, without complications Start:08-Jul-2015 Instruction Type:Patient Education Patient Instructions Indication:Diabetes mellitus type 2, uncontrolled, without complications Start:08-Jul-2015 Instruction Type:Provider Instructions for Treatment cardiovascular counseling Indication:Coronary artery disease, non-occlusive Start:19-Jun-2015 Instruction Type:Provider Instructions for Treatment How to access health informa tion online Indication:Annual Medicare Physical Start:19-Jun-2015 Instruction Type:Patient Education How to access health informa tion online - Detail Indication:Annual Medicare Physical Start:19-Jun-2015 Instruction Type:Patient Education Patient Instructions Indication:Annual Medicare Physical Start:19-Jun-2015 Instruction Type:Provider Instructions for Treatment How to access health informa tion online Indication:Diabetes mellitus type 2, controlled Start:10-Apr-2015 Instruction Type:Patient Education How to access health informa tion online - Detail Indication:Diabetes mellitus type 2, controlled Start:10-Apr-2015 Instruction Type:Patient Education Patient Instructions Indication:Diabetes mellitus type 2, controlled Start:10-Apr-2015 Instruction Type:Provider Instructions for Treatment Patient Instructions Indication:Diabetes mellitus type 2, controlled Start:09-Jan-2015 Instruction Type:Provider Instructions for Treatment Patient Instructions Indication:Coronary artery disease, non-occlusive Start:10-Oct-2014 Instruction Type:Provider Instructions for Treatment How to access health informa tion online Indication:Diabetes mellitus type 2, uncontrolled, without complications Start:05-Jul-2014 Instruction Type:Patient Education How to access health informa tion online - Detail Indication:Diabetes mellitus type 2, uncontrolled, without complications Start:05-Jul-2014 Instruction Type:Patient Education Patient Instructions Indication:Diabetes mellitus type 2, uncontrolled, without complications Start:05-Jul-2014 Instruction Type:Provider Instructions for Treatment cardiovascular counseling Indication:Coronary artery disease, non-occlusive Start:11-Jun-2014 Instruction Type:Provider Instructions for Treatment How to access health informa tion online Indication:Diabetes mellitus type 2, controlled Start:04-Apr-2014 Instruction Type:Patient Education How to access health informa tion online - Detail Indication:Diabetes mellitus type 2, controlled Start:04-Apr-2014 Instruction Type:Patient Education Patient Instructions Indication:Diabetes mellitus type 2, controlled Start:04-Apr-2014 Instruction Type:Provider Instructions for Treatment Patient Instructions Indication:Diabetes mellitus type 2, controlled Start:03-Jan-2014 Instruction Type:Provider Instructions for Treatment cardiovascular counseling Indication:Coronary artery disease, non-occlusive Start:20-Jun-2013 Instruction Type:Provider Instructions for Treatment Patient Instructions Indication:Diabetes mellitus type 2, controlled Start:20-Jun-2013 Instruction Type:Provider Instructions for Treatment Patient Instructions Indication:COPD, moderate Start:11-Oct-2012 Instruction Type:Provider Instructions for Treatment Patient Instructions Indication:Coronary artery disease, non-occlusive Start:07-Jul-2012 Instruction Type:Provider Instructions for Treatment [facility]; [facility] Work Phone: Instructions* Name Dates Details Patient Instructions Indication:Smoker Start:02-Mar-2023 Instruction Type:Provider Instructions for Treatment How to Access Health Informa tion Online using Patient Portal and 3rd [employer] Apps Indication:Smoker Start:02-Mar-2023 Instruction Type:Patient Education Patient Instructions Indication:BMI 26.0-26.9,adult Start:29-Nov-2022 Instruction Type:Provider Instructions for Treatment How to Access Health Informa tion Online using Patient Portal and [employer]rd [employer] Apps Indication:BMI 26.0-26.9,adult Start:29-Nov-2022 Instruction Type:Patient Education Patient Instructions Indication:BMI 26.0-26.9,adult Start:28-Jul-2022 Instruction Type:Provider Instructions for Treatment How to Access Health Informa tion Online using Patient Portal and [employer]rd [employer] Apps Indication:BMI 26.0-26.9,adult Start:28-Jul-2022 Instruction Type:Patient Education cardiovascular counseling Indication:Coronary artery disease, non-occlusive Start:16-Jul-2022 Instruction Type:Provider Instructions for Treatment Patient Instructions Indication:BMI 25.0-25.9,adult Start:16-Jul-2022 Instruction Type:Provider Instructions for Treatment How to Access Health Informa tion Online using Patient Portal and 3rd [employer] Apps Indication:BMI 25.0-25.9,adult Start:16-Jul-2022 Instruction Type:Patient Education Patient Instructions Indication:Diabetes mellitus type 2, controlled Start:07-Jun-2022 Instruction Type:Provider Instructions for Treatment How to Access Health Informa tion Online using Patient Portal and 3rd [employer] Apps Indication:Diabetes mellitus type 2, controlled Start:07-Jun-2022 Instruction Type:Patient Education Patient Instructions Indication:BMI 26.0-26.9,adult Start:21-Jan-2022 Instruction Type:Provider Instructions for Treatment How to Access Health Informa tion Online using Patient Portal and 3rd [employer] Apps Indication:BMI 26.0-26.9,adult Start:21-Jan-2022 Instruction Type:Patient Education Patient Instructions Indication:Smoker Start:16-Oct-2021 Instruction Type:Provider Instructions for Treatment How to Access Health Informa tion Online using Patient Portal and [employer]rd [employer] Apps Indication:Smoker Start:16-Oct-2021 Instruction Type:Patient Education cardiovascular counseling Indication:Coronary artery disease, non-occlusive Start:11-Aug-2020 Instruction Type:Provider Instructions for Treatment How to access health informa tion online Indication:BMI 26.0-26.9,adult Start:11-Aug-2020 Instruction Type:Patient Education How to access health informa tion online - Detail Indication:BMI 26.0-26.9,adult Start:11-Aug-2020 Instruction Type:Patient Education Patient Instructions Indication:BMI 26.0-26.9,adult Start:11-Aug-2020 Instruction Type:Provider Instructions for Treatment How to access health informa tion online Indication:Smoker Start:26-Jun-2020 Instruction Type:Patient Education How to access health informa tion online - Detail Indication:Smoker Start:26-Jun-2020 Instruction Type:Patient Education Patient Instructions Indication:Smoker Start:26-Jun-2020 Instruction Type:Provider Instructions for Treatment How to access health informa tion online Indication:BMI 26.0-26.9,adult Start:25-Feb-2020 Instruction Type:Patient Education How to access health informa tion online - Detail Indication:BMI 26.0-26.9,adult Start:25-Feb-2020 Instruction Type:Patient Education Patient Instructions Indication:BMI 26.0-26.9,adult Start:25-Feb-2020 Instruction Type:Provider Instructions for Treatment How to access health informa tion online Indication:Coronary artery disease, non-occlusive Start:29-Aug-2019 Instruction Type:Patient Education How to access health informa tion online - Detail Indication:Coronary artery disease, non-occlusive Start:29-Aug-2019 Instruction Type:Patient Education Patient Instructions Indication:Coronary artery disease, non-occlusive Start:29-Aug-2019 Instruction Type:Provider Instructions for Treatment cardiovascular counseling Indication:Coronary artery disease, non-occlusive Start:08-Aug-2019 Instruction Type:Provider Instructions for Treatment How to access health informa tion online Indication:Cigar smoker Start:08-Aug-2019 Instruction Type:Patient Education How to access health informa tion online - Detail Indication:Cigar smoker Start:08-Aug-2019 Instruction Type:Patient Education Patient Instructions Indication:Cigar smoker Start:08-Aug-2019 Instruction Type:Provider Instructions for Treatment cardiovascular counseling Indication:Coronary artery disease, non-occlusive Start:25-Jul-2018 Instruction Type:Provider Instructions for Treatment How to access health informa tion online Indication:BMI 27.0-27.9,adult Start:25-Jul-2018 Instruction Type:Patient Education How to access health informa tion online - Detail Indication:BMI 27.0-27.9,adult Start:25-Jul-2018 Instruction Type:Patient Education Patient Instructions Indication:BMI 27.0-27.9,adult Start:25-Jul-2018 Instruction Type:Provider Instructions for Treatment How to access health informa tion online Indication:Body mass index 26.0-26.9, adult Start:17-May-2018 Instruction Type:Patient Education How to access health informa tion online - Detail Indication:Body mass index 26.0-26.9, adult Start:17-May-2018 Instruction Type:Patient Education Patient Instructions Indication:Body mass index 26.0-26.9, adult Start:17-May-2018 Instruction Type:Provider Instructions for Treatment How to access health informa tion online Indication:Tobacco Use Start:05-Apr-2018 Instruction Type:Patient Education How to access health informa tion online - Detail Indication:Tobacco Use Start:05-Apr-2018 Instruction Type:Patient Education Patient Instructions Indication:Tobacco Use Start:05-Apr-2018 Instruction Type:Provider Instructions for Treatment How to access health informa tion online Indication:Body mass index 26.0-26.9, adult Start:14-Feb-2018 Instruction Type:Patient Education How to access health informa tion online - Detail Indication:Body mass index 26.0-26.9, adult Start:14-Feb-2018 Instruction Type:Patient Education Patient Instructions Indication:Body mass index 26.0-26.9, adult Start:14-Feb-2018 Instruction Type:Provider Instructions for Treatment How to access health informa tion online Indication:Diabetes mellitus type 2, uncontrolled, without complications Start:08-Nov-2017 Instruction Type:Patient Education How to access health informa tion online - Detail Indication:Diabetes mellitus type 2, uncontrolled, without complications Start:08-Nov-2017 Instruction Type:Patient Education Patient Instructions Indication:Diabetes mellitus type 2, uncontrolled, without complications Start:08-Nov-2017 Instruction Type:Provider Instructions for Treatment cardiovascular counseling Indication:Coronary artery disease, non-occlusive Start:27-Jun-2017 Instruction Type:Provider Instructions for Treatment How to access health informa tion online Indication:Tobacco Use Start:27-Jun-2017 Instruction Type:Patient Education How to access health informa tion online - Detail Indication:Tobacco Use Start:27-Jun-2017 Instruction Type:Patient Education Patient Instructions Indication:Tobacco Use Start:27-Jun-2017 Instruction Type:Provider Instructions for Treatment How to access health informa tion online Indication:Diabetes mellitus type 2, controlled Start:05-May-2017 Instruction Type:Patient Education How to access health informa tion online - Detail Indication:Diabetes mellitus type 2, controlled Start:05-May-2017 Instruction Type:Patient Education Patient Instructions Indication:Diabetes mellitus type 2, controlled Start:05-May-2017 Instruction Type:Provider Instructions for Treatment How to access health informa tion online Indication:Diabetes mellitus type 2, controlled Start:23-Dec-2016 Instruction Type:Patient Education How to access health informa tion online - Detail Indication:Diabetes mellitus type 2, controlled Start:23-Dec-2016 Instruction Type:Patient Education Patient Instructions Indication:Diabetes mellitus type 2, controlled Start:23-Dec-2016 Instruction Type:Provider Instructions for Treatment Patient Instructions Indication:Annual Medicare Physical Start:24-Jun-2016 Instruction Type:Provider Instructions for Treatment cardiovascular counseling Indication:Coronary artery disease, non-occlusive Start:24-Jun-2016 Instruction Type:Provider Instructions for Treatment How to access health informa tion online Indication:Diabetes mellitus type 2, controlled Start:17-Jun-2016 Instruction Type:Patient Education How to access health informa tion online - Detail Indication:Diabetes mellitus type 2, controlled Start:17-Jun-2016 Instruction Type:Patient Education Patient Instructions Indication:Diabetes mellitus type 2, controlled Start:17-Jun-2016 Instruction Type:Provider Instructions for Treatment How to access health informa tion online Indication:Diabetes mellitus type 2, controlled Start:13-Feb-2016 Instruction Type:Patient Education How to access health informa tion online - Detail Indication:Diabetes mellitus type 2, controlled Start:13-Feb-2016 Instruction Type:Patient Education Patient Instructions Indication:Diabetes mellitus type 2, controlled Start:13-Feb-2016 Instruction Type:Provider Instructions for Treatment How to access health informa tion online Indication:Diabetes mellitus type 2, controlled Start:12-Nov-2015 Instruction Type:Patient Education How to access health informa tion online - Detail Indication:Diabetes mellitus type 2, controlled Start:12-Nov-2015 Instruction Type:Patient Education Patient Instructions Indication:Diabetes mellitus type 2, controlled Start:12-Nov-2015 Instruction Type:Provider Instructions for Treatment Patient Instructions Indication:COPD, moderate Start:17-Jul-2015 Instruction Type:Provider Instructions for Treatment How to access health informa tion online Indication:Diabetes mellitus type 2, uncontrolled, without complications Start:08-Jul-2015 Instruction Type:Patient Education How to access health informa tion online - Detail Indication:Diabetes mellitus type 2, uncontrolled, without complications Start:08-Jul-2015 Instruction Type:Patient Education Patient Instructions Indication:Diabetes mellitus type 2, uncontrolled, without complications Start:08-Jul-2015 Instruction Type:Provider Instructions for Treatment cardiovascular counseling Indication:Coronary artery disease, non-occlusive Start:19-Jun-2015 Instruction Type:Provider Instructions for Treatment How to access health informa tion online Indication:Annual Medicare Physical Start:19-Jun-2015 Instruction Type:Patient Education How to access health informa tion online - Detail Indication:Annual Medicare Physical Start:19-Jun-2015 Instruction Type:Patient Education Patient Instructions Indication:Annual Medicare Physical Start:19-Jun-2015 Instruction Type:Provider Instructions for Treatment How to access health informa tion online Indication:Diabetes mellitus type 2, controlled Start:10-Apr-2015 Instruction Type:Patient Education How to access health informa tion online - Detail Indication:Diabetes mellitus type 2, controlled Start:10-Apr-2015 Instruction Type:Patient Education Patient Instructions Indication:Diabetes mellitus type 2, controlled Start:10-Apr-2015 Instruction Type:Provider Instructions for Treatment Patient Instructions Indication:Diabetes mellitus type 2, controlled Start:09-Jan-2015 Instruction Type:Provider Instructions for Treatment Patient Instructions Indication:Coronary artery disease, non-occlusive Start:10-Oct-2014 Instruction Type:Provider Instructions for Treatment How to access health informa tion online Indication:Diabetes mellitus type 2, uncontrolled, without complications Start:05-Jul-2014 Instruction Type:Patient Education How to access health informa tion online - Detail Indication:Diabetes mellitus type 2, uncontrolled, without complications Start:05-Jul-2014 Instruction Type:Patient Education Patient Instructions Indication:Diabetes mellitus type 2, uncontrolled, without complications Start:05-Jul-2014 Instruction Type:Provider Instructions for Treatment cardiovascular counseling Indication:Coronary artery disease, non-occlusive Start:11-Jun-2014 Instruction Type:Provider Instructions for Treatment How to access health informa tion online Indication:Diabetes mellitus type 2, controlled Start:04-Apr-2014 Instruction Type:Patient Education How to access health informa tion online - Detail Indication:Diabetes mellitus type 2, controlled Start:04-Apr-2014 Instruction Type:Patient Education Patient Instructions Indication:Diabetes mellitus type 2, controlled Start:04-Apr-2014 Instruction Type:Provider Instructions for Treatment Patient Instructions Indication:Diabetes mellitus type 2, controlled Start:03-Jan-2014 Instruction Type:Provider Instructions for Treatment cardiovascular counseling Indication:Coronary artery disease, non-occlusive Start:20-Jun-2013 Instruction Type:Provider Instructions for Treatment Patient Instructions Indication:Diabetes mellitus type 2, controlled Start:20-Jun-2013 Instruction Type:Provider Instructions for Treatment Patient Instructions Indication:COPD, moderate Start:11-Oct-2012 Instruction Type:Provider Instructions for Treatment Patient Instructions Indication:Coronary artery disease, non-occlusive Start:07-Jul-2012 Instruction Type:Provider Instructions for Treatment [facility]; [facility] Work Phone: Instructions* Name Dates Details Patient Instructions Indication:Smoker Start:02-Mar-2023 Instruction Type:Provider Instructions for Treatment How to Access Health Informa tion Online using Patient Portal and [employer]rd [employer] Apps Indication:Smoker Start:02-Mar-2023 Instruction Type:Patient Education Patient Instructions Indication:BMI 26.0-26.9,adult Start:29-Nov-2022 Instruction Type:Provider Instructions for Treatment How to Access Health Informa tion Online using Patient Portal and [employer]rd [employer] Apps Indication:BMI 26.0-26.9,adult Start:29-Nov-2022 Instruction Type:Patient Education Patient Instructions Indication:BMI 26.0-26.9,adult Start:28-Jul-2022 Instruction Type:Provider Instructions for Treatment How to Access Health Informa tion Online using Patient Portal and [employer]rd [employer] Apps Indication:BMI 26.0-26.9,adult Start:28-Jul-2022 Instruction Type:Patient Education cardiovascular counseling Indication:Coronary artery disease, non-occlusive Start:16-Jul-2022 Instruction Type:Provider Instructions for Treatment Patient Instructions Indication:BMI 25.0-25.9,adult Start:16-Jul-2022 Instruction Type:Provider Instructions for Treatment How to Access Health Informa tion Online using Patient Portal and [employer]rd [employer] Apps Indication:BMI 25.0-25.9,adult Start:16-Jul-2022 Instruction Type:Patient Education Patient Instructions Indication:Diabetes mellitus type 2, controlled Start:07-Jun-2022 Instruction Type:Provider Instructions for Treatment How to Access Health Informa tion Online using Patient Portal and [employer]rd [employer] Apps Indication:Diabetes mellitus type 2, controlled Start:07-Jun-2022 Instruction Type:Patient Education Patient Instructions Indication:BMI 26.0-26.9,adult Start:21-Jan-2022 Instruction Type:Provider Instructions for Treatment How to Access Health Informa tion Online using Patient Portal and [employer]rd [employer] Apps Indication:BMI 26.0-26.9,adult Start:21-Jan-2022 Instruction Type:Patient Education Patient Instructions Indication:Smoker Start:16-Oct-2021 Instruction Type:Provider Instructions for Treatment How to Access Health Informa tion Online using Patient Portal and [employer]rd [employer] Apps Indication:Smoker Start:16-Oct-2021 Instruction Type:Patient Education cardiovascular counseling Indication:Coronary artery disease, non-occlusive Start:11-Aug-2020 Instruction Type:Provider Instructions for Treatment How to access health informa tion online Indication:BMI 26.0-26.9,adult Start:11-Aug-2020 Instruction Type:Patient Education How to access health informa tion online - Detail Indication:BMI 26.0-26.9,adult Start:11-Aug-2020 Instruction Type:Patient Education Patient Instructions Indication:BMI 26.0-26.9,adult Start:11-Aug-2020 Instruction Type:Provider Instructions for Treatment How to access health informa tion online Indication:Smoker Start:26-Jun-2020 Instruction Type:Patient Education How to access health informa tion online - Detail Indication:Smoker Start:26-Jun-2020 Instruction Type:Patient Education Patient Instructions Indication:Smoker Start:26-Jun-2020 Instruction Type:Provider Instructions for Treatment How to access health informa tion online Indication:BMI 26.0-26.9,adult Start:25-Feb-2020 Instruction Type:Patient Education How to access health informa tion online - Detail Indication:BMI 26.0-26.9,adult Start:25-Feb-2020 Instruction Type:Patient Education Patient Instructions Indication:BMI 26.0-26.9,adult Start:25-Feb-2020 Instruction Type:Provider Instructions for Treatment How to access health informa tion online Indication:Coronary artery disease, non-occlusive Start:29-Aug-2019 Instruction Type:Patient Education How to access health informa tion online - Detail Indication:Coronary artery disease, non-occlusive Start:29-Aug-2019 Instruction Type:Patient Education Patient Instructions Indication:Coronary artery disease, non-occlusive Start:29-Aug-2019 Instruction Type:Provider Instructions for Treatment cardiovascular counseling Indication:Coronary artery disease, non-occlusive Start:08-Aug-2019 Instruction Type:Provider Instructions for Treatment How to access health informa tion online Indication:Cigar smoker Start:08-Aug-2019 Instruction Type:Patient Education How to access health informa tion online - Detail Indication:Cigar smoker Start:08-Aug-2019 Instruction Type:Patient Education Patient Instructions Indication:Cigar smoker Start:08-Aug-2019 Instruction Type:Provider Instructions for Treatment cardiovascular counseling Indication:Coronary artery disease, non-occlusive Start:25-Jul-2018 Instruction Type:Provider Instructions for Treatment How to access health informa tion online Indication:BMI 27.0-27.9,adult Start:25-Jul-2018 Instruction Type:Patient Education How to access health informa tion online - Detail Indication:BMI 27.0-27.9,adult Start:25-Jul-2018 Instruction Type:Patient Education Patient Instructions Indication:BMI 27.0-27.9,adult Start:25-Jul-2018 Instruction Type:Provider Instructions for Treatment How to access health informa tion online Indication:Body mass index 26.0-26.9, adult Start:17-May-2018 Instruction Type:Patient Education How to access health informa tion online - Detail Indication:Body mass index 26.0-26.9, adult Start:17-May-2018 Instruction Type:Patient Education Patient Instructions Indication:Body mass index 26.0-26.9, adult Start:17-May-2018 Instruction Type:Provider Instructions for Treatment How to access health informa tion online Indication:Tobacco Use Start:05-Apr-2018 Instruction Type:Patient Education How to access health informa tion online - Detail Indication:Tobacco Use Start:05-Apr-2018 Instruction Type:Patient Education Patient Instructions Indication:Tobacco Use Start:05-Apr-2018 Instruction Type:Provider Instructions for Treatment How to access health informa tion online Indication:Body mass index 26.0-26.9, adult Start:14-Feb-2018 Instruction Type:Patient Education How to access health informa tion online - Detail Indication:Body mass index 26.0-26.9, adult Start:14-Feb-2018 Instruction Type:Patient Education Patient Instructions Indication:Body mass index 26.0-26.9, adult Start:14-Feb-2018 Instruction Type:Provider Instructions for Treatment How to access health informa tion online Indication:Diabetes mellitus type 2, uncontrolled, without complications Start:08-Nov-2017 Instruction Type:Patient Education How to access health informa tion online - Detail Indication:Diabetes mellitus type 2, uncontrolled, without complications Start:08-Nov-2017 Instruction Type:Patient Education Patient Instructions Indication:Diabetes mellitus type 2, uncontrolled, without complications Start:08-Nov-2017 Instruction Type:Provider Instructions for Treatment cardiovascular counseling Indication:Coronary artery disease, non-occlusive Start:27-Jun-2017 Instruction Type:Provider Instructions for Treatment How to access health informa tion online Indication:Tobacco Use Start:27-Jun-2017 Instruction Type:Patient Education How to access health informa tion online - Detail Indication:Tobacco Use Start:27-Jun-2017 Instruction Type:Patient Education Patient Instructions Indication:Tobacco Use Start:27-Jun-2017 Instruction Type:Provider Instructions for Treatment How to access health informa tion online Indication:Diabetes mellitus type 2, controlled Start:05-May-2017 Instruction Type:Patient Education How to access health informa tion online - Detail Indication:Diabetes mellitus type 2, controlled Start:05-May-2017 Instruction Type:Patient Education Patient Instructions Indication:Diabetes mellitus type 2, controlled Start:05-May-2017 Instruction Type:Provider Instructions for Treatment How to access health informa tion online Indication:Diabetes mellitus type 2, controlled Start:23-Dec-2016 Instruction Type:Patient Education How to access health informa tion online - Detail Indication:Diabetes mellitus type 2, controlled Start:23-Dec-2016 Instruction Type:Patient Education Patient Instructions Indication:Diabetes mellitus type 2, controlled Start:23-Dec-2016 Instruction Type:Provider Instructions for Treatment Patient Instructions Indication:Annual Medicare Physical Start:24-Jun-2016 Instruction Type:Provider Instructions for Treatment cardiovascular counseling Indication:Coronary artery disease, non-occlusive Start:24-Jun-2016 Instruction Type:Provider Instructions for Treatment How to access health informa tion online Indication:Diabetes mellitus type 2, controlled Start:17-Jun-2016 Instruction Type:Patient Education How to access health informa tion online - Detail Indication:Diabetes mellitus type 2, controlled Start:17-Jun-2016 Instruction Type:Patient Education Patient Instructions Indication:Diabetes mellitus type 2, controlled Start:17-Jun-2016 Instruction Type:Provider Instructions for Treatment How to access health informa tion online Indication:Diabetes mellitus type 2, controlled Start:13-Feb-2016 Instruction Type:Patient Education How to access health informa tion online - Detail Indication:Diabetes mellitus type 2, controlled Start:13-Feb-2016 Instruction Type:Patient Education Patient Instructions Indication:Diabetes mellitus type 2, controlled Start:13-Feb-2016 Instruction Type:Provider Instructions for Treatment How to access health informa tion online Indication:Diabetes mellitus type 2, controlled Start:12-Nov-2015 Instruction Type:Patient Education How to access health informa tion online - Detail Indication:Diabetes mellitus type 2, controlled Start:12-Nov-2015 Instruction Type:Patient Education Patient Instructions Indication:Diabetes mellitus type 2, controlled Start:12-Nov-2015 Instruction Type:Provider Instructions for Treatment Patient Instructions Indication:COPD, moderate Start:17-Jul-2015 Instruction Type:Provider Instructions for Treatment How to access health informa tion online Indication:Diabetes mellitus type 2, uncontrolled, without complications Start:08-Jul-2015 Instruction Type:Patient Education How to access health informa tion online - Detail Indication:Diabetes mellitus type 2, uncontrolled, without complications Start:08-Jul-2015 Instruction Type:Patient Education Patient Instructions Indication:Diabetes mellitus type 2, uncontrolled, without complications Start:08-Jul-2015 Instruction Type:Provider Instructions for Treatment cardiovascular counseling Indication:Coronary artery disease, non-occlusive Start:19-Jun-2015 Instruction Type:Provider Instructions for Treatment How to access health informa tion online Indication:Annual Medicare Physical Start:19-Jun-2015 Instruction Type:Patient Education How to access health informa tion online - Detail Indication:Annual Medicare Physical Start:19-Jun-2015 Instruction Type:Patient Education Patient Instructions Indication:Annual Medicare Physical Start:19-Jun-2015 Instruction Type:Provider Instructions for Treatment How to access health informa tion online Indication:Diabetes mellitus type 2, controlled Start:10-Apr-2015 Instruction Type:Patient Education How to access health informa tion online - Detail Indication:Diabetes mellitus type 2, controlled Start:10-Apr-2015 Instruction Type:Patient Education Patient Instructions Indication:Diabetes mellitus type 2, controlled Start:10-Apr-2015 Instruction Type:Provider Instructions for Treatment Patient Instructions Indication:Diabetes mellitus type 2, controlled Start:09-Jan-2015 Instruction Type:Provider Instructions for Treatment Patient Instructions Indication:Coronary artery disease, non-occlusive Start:10-Oct-2014 Instruction Type:Provider Instructions for Treatment How to access health informa tion online Indication:Diabetes mellitus type 2, uncontrolled, without complications Start:05-Jul-2014 Instruction Type:Patient Education How to access health informa tion online - Detail Indication:Diabetes mellitus type 2, uncontrolled, without complications Start:05-Jul-2014 Instruction Type:Patient Education Patient Instructions Indication:Diabetes mellitus type 2, uncontrolled, without complications Start:05-Jul-2014 Instruction Type:Provider Instructions for Treatment cardiovascular counseling Indication:Coronary artery disease, non-occlusive Start:11-Jun-2014 Instruction Type:Provider Instructions for Treatment How to access health informa tion online Indication:Diabetes mellitus type 2, controlled Start:04-Apr-2014 Instruction Type:Patient Education How to access health informa tion online - Detail Indication:Diabetes mellitus type 2, controlled Start:04-Apr-2014 Instruction Type:Patient Education Patient Instructions Indication:Diabetes mellitus type 2, controlled Start:04-Apr-2014 Instruction Type:Provider Instructions for Treatment Patient Instructions Indication:Diabetes mellitus type 2, controlled Start:03-Jan-2014 Instruction Type:Provider Instructions for Treatment cardiovascular counseling Indication:Coronary artery disease, non-occlusive Start:20-Jun-2013 Instruction Type:Provider Instructions for Treatment Patient Instructions Indication:Diabetes mellitus type 2, controlled Start:20-Jun-2013 Instruction Type:Provider Instructions for Treatment Patient Instructions Indication:COPD, moderate Start:11-Oct-2012 Instruction Type:Provider Instructions for Treatment Patient Instructions Indication:Coronary artery disease, non-occlusive Start:07-Jul-2012 Instruction Type:Provider Instructions for Treatment [facility]; [facility] Work Phone: Instructions* Name Dates Details Patient Instructions Indication:BMI 26.0-26.9,adult Start:03-Jun-2023 Instruction Type:Provider Instructions for Treatment How to Access Health Informa tion Online using Patient Portal and [employer]rd [employer] Apps Indication:BMI 26.0-26.9,adult Start:03-Jun-2023 Instruction Type:Patient Education Patient Instructions Indication:Smoker Start:02-Mar-2023 Instruction Type:Provider Instructions for Treatment How to Access Health Informa tion Online using Patient Portal and [employer]rd [employer] Apps Indication:Smoker Start:02-Mar-2023 Instruction Type:Patient Education Patient Instructions Indication:BMI 26.0-26.9,adult Start:29-Nov-2022 Instruction Type:Provider Instructions for Treatment How to Access Health Informa tion Online using Patient Portal and [employer]rd [employer] Apps Indication:BMI 26.0-26.9,adult Start:29-Nov-2022 Instruction Type:Patient Education Patient Instructions Indication:BMI 26.0-26.9,adult Start:28-Jul-2022 Instruction Type:Provider Instructions for Treatment How to Access Health Informa tion Online using Patient Portal and [employer]rd [employer] Apps Indication:BMI 26.0-26.9,adult Start:28-Jul-2022 Instruction Type:Patient Education cardiovascular counseling Indication:Coronary artery disease, non-occlusive Start:16-Jul-2022 Instruction Type:Provider Instructions for Treatment Patient Instructions Indication:BMI 25.0-25.9,adult Start:16-Jul-2022 Instruction Type:Provider Instructions for Treatment How to Access Health Informa tion Online using Patient Portal and [employer]rd [employer] Apps Indication:BMI 25.0-25.9,adult Start:16-Jul-2022 Instruction Type:Patient Education Patient Instructions Indication:Diabetes mellitus type 2, controlled Start:07-Jun-2022 Instruction Type:Provider Instructions for Treatment How to Access Health Informa tion Online using Patient Portal and [employer]rd [employer] Apps Indication:Diabetes mellitus type 2, controlled Start:07-Jun-2022 Instruction Type:Patient Education Patient Instructions Indication:BMI 26.0-26.9,adult Start:21-Jan-2022 Instruction Type:Provider Instructions for Treatment How to Access Health Informa tion Online using Patient Portal and [employer]rd [employer] Apps Indication:BMI 26.0-26.9,adult Start:21-Jan-2022 Instruction Type:Patient Education Patient Instructions Indication:Smoker Start:16-Oct-2021 Instruction Type:Provider Instructions for Treatment How to Access Health Informa tion Online using Patient Portal and [employer]rd [employer] Apps Indication:Smoker Start:16-Oct-2021 Instruction Type:Patient Education cardiovascular counseling Indication:Coronary artery disease, non-occlusive Start:11-Aug-2020 Instruction Type:Provider Instructions for Treatment How to access health informa tion online Indication:BMI 26.0-26.9,adult Start:11-Aug-2020 Instruction Type:Patient Education How to access health informa tion online - Detail Indication:BMI 26.0-26.9,adult Start:11-Aug-2020 Instruction Type:Patient Education Patient Instructions Indication:BMI 26.0-26.9,adult Start:11-Aug-2020 Instruction Type:Provider Instructions for Treatment How to access health informa tion online Indication:Smoker Start:26-Jun-2020 Instruction Type:Patient Education How to access health informa tion online - Detail Indication:Smoker Start:26-Jun-2020 Instruction Type:Patient Education Patient Instructions Indication:Smoker Start:26-Jun-2020 Instruction Type:Provider Instructions for Treatment How to access health informa tion online Indication:BMI 26.0-26.9,adult Start:25-Feb-2020 Instruction Type:Patient Education How to access health informa tion online - Detail Indication:BMI 26.0-26.9,adult Start:25-Feb-2020 Instruction Type:Patient Education Patient Instructions Indication:BMI 26.0-26.9,adult Start:25-Feb-2020 Instruction Type:Provider Instructions for Treatment How to access health informa tion online Indication:Coronary artery disease, non-occlusive Start:29-Aug-2019 Instruction Type:Patient Education How to access health informa tion online - Detail Indication:Coronary artery disease, non-occlusive Start:29-Aug-2019 Instruction Type:Patient Education Patient Instructions Indication:Coronary artery disease, non-occlusive Start:29-Aug-2019 Instruction Type:Provider Instructions for Treatment cardiovascular counseling Indication:Coronary artery disease, non-occlusive Start:08-Aug-2019 Instruction Type:Provider Instructions for Treatment How to access health informa tion online Indication:Cigar smoker Start:08-Aug-2019 Instruction Type:Patient Education How to access health informa tion online - Detail Indication:Cigar smoker Start:08-Aug-2019 Instruction Type:Patient Education Patient Instructions Indication:Cigar smoker Start:08-Aug-2019 Instruction Type:Provider Instructions for Treatment cardiovascular counseling Indication:Coronary artery disease, non-occlusive Start:25-Jul-2018 Instruction Type:Provider Instructions for Treatment How to access health informa tion online Indication:BMI 27.0-27.9,adult Start:25-Jul-2018 Instruction Type:Patient Education How to access health informa tion online - Detail Indication:BMI 27.0-27.9,adult Start:25-Jul-2018 Instruction Type:Patient Education Patient Instructions Indication:BMI 27.0-27.9,adult Start:25-Jul-2018 Instruction Type:Provider Instructions for Treatment How to access health informa tion online Indication:Body mass index 26.0-26.9, adult Start:17-May-2018 Instruction Type:Patient Education How to access health informa tion online - Detail Indication:Body mass index 26.0-26.9, adult Start:17-May-2018 Instruction Type:Patient Education Patient Instructions Indication:Body mass index 26.0-26.9, adult Start:17-May-2018 Instruction Type:Provider Instructions for Treatment How to access health informa tion online Indication:Tobacco Use Start:05-Apr-2018 Instruction Type:Patient Education How to access health informa tion online - Detail Indication:Tobacco Use Start:05-Apr-2018 Instruction Type:Patient Education Patient Instructions Indication:Tobacco Use Start:05-Apr-2018 Instruction Type:Provider Instructions for Treatment How to access health informa tion online Indication:Body mass index 26.0-26.9, adult Start:14-Feb-2018 Instruction Type:Patient Education How to access health informa tion online - Detail Indication:Body mass index 26.0-26.9, adult Start:14-Feb-2018 Instruction Type:Patient Education Patient Instructions Indication:Body mass index 26.0-26.9, adult Start:14-Feb-2018 Instruction Type:Provider Instructions for Treatment How to access health informa tion online Indication:Diabetes mellitus type 2, uncontrolled, without complications Start:08-Nov-2017 Instruction Type:Patient Education How to access health informa tion online - Detail Indication:Diabetes mellitus type 2, uncontrolled, without complications Start:08-Nov-2017 Instruction Type:Patient Education Patient Instructions Indication:Diabetes mellitus type 2, uncontrolled, without complications Start:08-Nov-2017 Instruction Type:Provider Instructions for Treatment cardiovascular counseling Indication:Coronary artery disease, non-occlusive Start:27-Jun-2017 Instruction Type:Provider Instructions for Treatment How to access health informa tion online Indication:Tobacco Use Start:27-Jun-2017 Instruction Type:Patient Education How to access health informa tion online - Detail Indication:Tobacco Use Start:27-Jun-2017 Instruction Type:Patient Education Patient Instructions Indication:Tobacco Use Start:27-Jun-2017 Instruction Type:Provider Instructions for Treatment How to access health informa tion online Indication:Diabetes mellitus type 2, controlled Start:05-May-2017 Instruction Type:Patient Education How to access health informa tion online - Detail Indication:Diabetes mellitus type 2, controlled Start:05-May-2017 Instruction Type:Patient Education Patient Instructions Indication:Diabetes mellitus type 2, controlled Start:05-May-2017 Instruction Type:Provider Instructions for Treatment How to access health informa tion online Indication:Diabetes mellitus type 2, controlled Start:23-Dec-2016 Instruction Type:Patient Education How to access health informa tion online - Detail Indication:Diabetes mellitus type 2, controlled Start:23-Dec-2016 Instruction Type:Patient Education Patient Instructions Indication:Diabetes mellitus type 2, controlled Start:23-Dec-2016 Instruction Type:Provider Instructions for Treatment Patient Instructions Indication:Annual Medicare Physical Start:24-Jun-2016 Instruction Type:Provider Instructions for Treatment cardiovascular counseling Indication:Coronary artery disease, non-occlusive Start:24-Jun-2016 Instruction Type:Provider Instructions for Treatment How to access health informa tion online Indication:Diabetes mellitus type 2, controlled Start:17-Jun-2016 Instruction Type:Patient Education How to access health informa tion online - Detail Indication:Diabetes mellitus type 2, controlled Start:17-Jun-2016 Instruction Type:Patient Education Patient Instructions Indication:Diabetes mellitus type 2, controlled Start:17-Jun-2016 Instruction Type:Provider Instructions for Treatment How to access health informa tion online Indication:Diabetes mellitus type 2, controlled Start:13-Feb-2016 Instruction Type:Patient Education How to access health informa tion online - Detail Indication:Diabetes mellitus type 2, controlled Start:13-Feb-2016 Instruction Type:Patient Education Patient Instructions Indication:Diabetes mellitus type 2, controlled Start:13-Feb-2016 Instruction Type:Provider Instructions for Treatment How to access health informa tion online Indication:Diabetes mellitus type 2, controlled Start:12-Nov-2015 Instruction Type:Patient Education How to access health informa tion online - Detail Indication:Diabetes mellitus type 2, controlled Start:12-Nov-2015 Instruction Type:Patient Education Patient Instructions Indication:Diabetes mellitus type 2, controlled Start:12-Nov-2015 Instruction Type:Provider Instructions for Treatment Patient Instructions Indication:COPD, moderate Start:17-Jul-2015 Instruction Type:Provider Instructions for Treatment How to access health informa tion online Indication:Diabetes mellitus type 2, uncontrolled, without complications Start:08-Jul-2015 Instruction Type:Patient Education How to access health informa tion online - Detail Indication:Diabetes mellitus type 2, uncontrolled, without complications Start:08-Jul-2015 Instruction Type:Patient Education Patient Instructions Indication:Diabetes mellitus type 2, uncontrolled, without complications Start:08-Jul-2015 Instruction Type:Provider Instructions for Treatment cardiovascular counseling Indication:Coronary artery disease, non-occlusive Start:19-Jun-2015 Instruction Type:Provider Instructions for Treatment How to access health informa tion online Indication:Annual Medicare Physical Start:19-Jun-2015 Instruction Type:Patient Education How to access health informa tion online - Detail Indication:Annual Medicare Physical Start:19-Jun-2015 Instruction Type:Patient Education Patient Instructions Indication:Annual Medicare Physical Start:19-Jun-2015 Instruction Type:Provider Instructions for Treatment How to access health informa tion online Indication:Diabetes mellitus type 2, controlled Start:10-Apr-2015 Instruction Type:Patient Education How to access health informa tion online - Detail Indication:Diabetes mellitus type 2, controlled Start:10-Apr-2015 Instruction Type:Patient Education Patient Instructions Indication:Diabetes mellitus type 2, controlled Start:10-Apr-2015 Instruction Type:Provider Instructions for Treatment Patient Instructions Indication:Diabetes mellitus type 2, controlled Start:09-Jan-2015 Instruction Type:Provider Instructions for Treatment Patient Instructions Indication:Coronary artery disease, non-occlusive Start:10-Oct-2014 Instruction Type:Provider Instructions for Treatment How to access health informa tion online Indication:Diabetes mellitus type 2, uncontrolled, without complications Start:05-Jul-2014 Instruction Type:Patient Education How to access health informa tion online - Detail Indication:Diabetes mellitus type 2, uncontrolled, without complications Start:05-Jul-2014 Instruction Type:Patient Education Patient Instructions Indication:Diabetes mellitus type 2, uncontrolled, without complications Start:05-Jul-2014 Instruction Type:Provider Instructions for Treatment cardiovascular counseling Indication:Coronary artery disease, non-occlusive Start:11-Jun-2014 Instruction Type:Provider Instructions for Treatment How to access health informa tion online Indication:Diabetes mellitus type 2, controlled Start:04-Apr-2014 Instruction Type:Patient Education How to access health informa tion online - Detail Indication:Diabetes mellitus type 2, controlled Start:04-Apr-2014 Instruction Type:Patient Education Patient Instructions Indication:Diabetes mellitus type 2, controlled Start:04-Apr-2014 Instruction Type:Provider Instructions for Treatment Patient Instructions Indication:Diabetes mellitus type 2, controlled Start:03-Jan-2014 Instruction Type:Provider Instructions for Treatment cardiovascular counseling Indication:Coronary artery disease, non-occlusive Start:20-Jun-2013 Instruction Type:Provider Instructions for Treatment Patient Instructions Indication:Diabetes mellitus type 2, controlled Start:20-Jun-2013 Instruction Type:Provider Instructions for Treatment Patient Instructions Indication:COPD, moderate Start:11-Oct-2012 Instruction Type:Provider Instructions for Treatment Patient Instructions Indication:Coronary artery disease, non-occlusive Start:07-Jul-2012 Instruction Type:Provider Instructions for Treatment [facility]; [facility] Work Phone: Instructions* Name Dates Details Patient Instructions Indication:BMI 26.0-26.9,adult Start:03-Jun-2023 Instruction Type:Provider Instructions for Treatment How to Access Health Informa tion Online using Patient Portal and [employer]rd [employer] Apps Indication:BMI 26.0-26.9,adult Start:03-Jun-2023 Instruction Type:Patient Education Patient Instructions Indication:Smoker Start:02-Mar-2023 Instruction Type:Provider Instructions for Treatment How to Access Health Informa tion Online using Patient Portal and [employer]rd [employer] Apps Indication:Smoker Start:02-Mar-2023 Instruction Type:Patient Education Patient Instructions Indication:BMI 26.0-26.9,adult Start:29-Nov-2022 Instruction Type:Provider Instructions for Treatment How to Access Health Informa tion Online using Patient Portal and [employer]rd [employer] Apps Indication:BMI 26.0-26.9,adult Start:29-Nov-2022 Instruction Type:Patient Education Patient Instructions Indication:BMI 26.0-26.9,adult Start:28-Jul-2022 Instruction Type:Provider Instructions for Treatment How to Access Health Informa tion Online using Patient Portal and [employer]rd [employer] Apps Indication:BMI 26.0-26.9,adult Start:28-Jul-2022 Instruction Type:Patient Education cardiovascular counseling Indication:Coronary artery disease, non-occlusive Start:16-Jul-2022 Instruction Type:Provider Instructions for Treatment Patient Instructions Indication:BMI 25.0-25.9,adult Start:16-Jul-2022 Instruction Type:Provider Instructions for Treatment How to Access Health Informa tion Online using Patient Portal and [employer]rd [employer] Apps Indication:BMI 25.0-25.9,adult Start:16-Jul-2022 Instruction Type:Patient Education Patient Instructions Indication:Diabetes mellitus type 2, controlled Start:07-Jun-2022 Instruction Type:Provider Instructions for Treatment How to Access Health Informa tion Online using Patient Portal and [employer]rd [employer] Apps Indication:Diabetes mellitus type 2, controlled Start:07-Jun-2022 Instruction Type:Patient Education Patient Instructions Indication:BMI 26.0-26.9,adult Start:21-Jan-2022 Instruction Type:Provider Instructions for Treatment How to Access Health Informa tion Online using Patient Portal and [employer]rd [employer] Apps Indication:BMI 26.0-26.9,adult Start:21-Jan-2022 Instruction Type:Patient Education Patient Instructions Indication:Smoker Start:16-Oct-2021 Instruction Type:Provider Instructions for Treatment How to Access Health Informa tion Online using Patient Portal and [employer]rd [employer] Apps Indication:Smoker Start:16-Oct-2021 Instruction Type:Patient Education cardiovascular counseling Indication:Coronary artery disease, non-occlusive Start:11-Aug-2020 Instruction Type:Provider Instructions for Treatment How to access health informa tion online Indication:BMI 26.0-26.9,adult Start:11-Aug-2020 Instruction Type:Patient Education How to access health informa tion online - Detail Indication:BMI 26.0-26.9,adult Start:11-Aug-2020 Instruction Type:Patient Education Patient Instructions Indication:BMI 26.0-26.9,adult Start:11-Aug-2020 Instruction Type:Provider Instructions for Treatment How to access health informa tion online Indication:Smoker Start:26-Jun-2020 Instruction Type:Patient Education How to access health informa tion online - Detail Indication:Smoker Start:26-Jun-2020 Instruction Type:Patient Education Patient Instructions Indication:Smoker Start:26-Jun-2020 Instruction Type:Provider Instructions for Treatment How to access health informa tion online Indication:BMI 26.0-26.9,adult Start:25-Feb-2020 Instruction Type:Patient Education How to access health informa tion online - Detail Indication:BMI 26.0-26.9,adult Start:25-Feb-2020 Instruction Type:Patient Education Patient Instructions Indication:BMI 26.0-26.9,adult Start:25-Feb-2020 Instruction Type:Provider Instructions for Treatment How to access health informa tion online Indication:Coronary artery disease, non-occlusive Start:29-Aug-2019 Instruction Type:Patient Education How to access health informa tion online - Detail Indication:Coronary artery disease, non-occlusive Start:29-Aug-2019 Instruction Type:Patient Education Patient Instructions Indication:Coronary artery disease, non-occlusive Start:29-Aug-2019 Instruction Type:Provider Instructions for Treatment cardiovascular counseling Indication:Coronary artery disease, non-occlusive Start:08-Aug-2019 Instruction Type:Provider Instructions for Treatment How to access health informa tion online Indication:Cigar smoker Start:08-Aug-2019 Instruction Type:Patient Education How to access health informa tion online - Detail Indication:Cigar smoker Start:08-Aug-2019 Instruction Type:Patient Education Patient Instructions Indication:Cigar smoker Start:08-Aug-2019 Instruction Type:Provider Instructions for Treatment cardiovascular counseling Indication:Coronary artery disease, non-occlusive Start:25-Jul-2018 Instruction Type:Provider Instructions for Treatment How to access health informa tion online Indication:BMI 27.0-27.9,adult Start:25-Jul-2018 Instruction Type:Patient Education How to access health informa tion online - Detail Indication:BMI 27.0-27.9,adult Start:25-Jul-2018 Instruction Type:Patient Education Patient Instructions Indication:BMI 27.0-27.9,adult Start:25-Jul-2018 Instruction Type:Provider Instructions for Treatment How to access health informa tion online Indication:Body mass index 26.0-26.9, adult Start:17-May-2018 Instruction Type:Patient Education How to access health informa tion online - Detail Indication:Body mass index 26.0-26.9, adult Start:17-May-2018 Instruction Type:Patient Education Patient Instructions Indication:Body mass index 26.0-26.9, adult Start:17-May-2018 Instruction Type:Provider Instructions for Treatment How to access health informa tion online Indication:Tobacco Use Start:05-Apr-2018 Instruction Type:Patient Education How to access health informa tion online - Detail Indication:Tobacco Use Start:05-Apr-2018 Instruction Type:Patient Education Patient Instructions Indication:Tobacco Use Start:05-Apr-2018 Instruction Type:Provider Instructions for Treatment How to access health informa tion online Indication:Body mass index 26.0-26.9, adult Start:14-Feb-2018 Instruction Type:Patient Education How to access health informa tion online - Detail Indication:Body mass index 26.0-26.9, adult Start:14-Feb-2018 Instruction Type:Patient Education Patient Instructions Indication:Body mass index 26.0-26.9, adult Start:14-Feb-2018 Instruction Type:Provider Instructions for Treatment How to access health informa tion online Indication:Diabetes mellitus type 2, uncontrolled, without complications Start:08-Nov-2017 Instruction Type:Patient Education How to access health informa tion online - Detail Indication:Diabetes mellitus type 2, uncontrolled, without complications Start:08-Nov-2017 Instruction Type:Patient Education Patient Instructions Indication:Diabetes mellitus type 2, uncontrolled, without complications Start:08-Nov-2017 Instruction Type:Provider Instructions for Treatment cardiovascular counseling Indication:Coronary artery disease, non-occlusive Start:27-Jun-2017 Instruction Type:Provider Instructions for Treatment How to access health informa tion online Indication:Tobacco Use Start:27-Jun-2017 Instruction Type:Patient Education How to access health informa tion online - Detail Indication:Tobacco Use Start:27-Jun-2017 Instruction Type:Patient Education Patient Instructions Indication:Tobacco Use Start:27-Jun-2017 Instruction Type:Provider Instructions for Treatment How to access health informa tion online Indication:Diabetes mellitus type 2, controlled Start:05-May-2017 Instruction Type:Patient Education How to access health informa tion online - Detail Indication:Diabetes mellitus type 2, controlled Start:05-May-2017 Instruction Type:Patient Education Patient Instructions Indication:Diabetes mellitus type 2, controlled Start:05-May-2017 Instruction Type:Provider Instructions for Treatment How to access health informa tion online Indication:Diabetes mellitus type 2, controlled Start:23-Dec-2016 Instruction Type:Patient Education How to access health informa tion online - Detail Indication:Diabetes mellitus type 2, controlled Start:23-Dec-2016 Instruction Type:Patient Education Patient Instructions Indication:Diabetes mellitus type 2, controlled Start:23-Dec-2016 Instruction Type:Provider Instructions for Treatment Patient Instructions Indication:Annual Medicare Physical Start:24-Jun-2016 Instruction Type:Provider Instructions for Treatment cardiovascular counseling Indication:Coronary artery disease, non-occlusive Start:24-Jun-2016 Instruction Type:Provider Instructions for Treatment How to access health informa tion online Indication:Diabetes mellitus type 2, controlled Start:17-Jun-2016 Instruction Type:Patient Education How to access health informa tion online - Detail Indication:Diabetes mellitus type 2, controlled Start:17-Jun-2016 Instruction Type:Patient Education Patient Instructions Indication:Diabetes mellitus type 2, controlled Start:17-Jun-2016 Instruction Type:Provider Instructions for Treatment How to access health informa tion online Indication:Diabetes mellitus type 2, controlled Start:13-Feb-2016 Instruction Type:Patient Education How to access health informa tion online - Detail Indication:Diabetes mellitus type 2, controlled Start:13-Feb-2016 Instruction Type:Patient Education Patient Instructions Indication:Diabetes mellitus type 2, controlled Start:13-Feb-2016 Instruction Type:Provider Instructions for Treatment How to access health informa tion online Indication:Diabetes mellitus type 2, controlled Start:12-Nov-2015 Instruction Type:Patient Education How to access health informa tion online - Detail Indication:Diabetes mellitus type 2, controlled Start:12-Nov-2015 Instruction Type:Patient Education Patient Instructions Indication:Diabetes mellitus type 2, controlled Start:12-Nov-2015 Instruction Type:Provider Instructions for Treatment Patient Instructions Indication:COPD, moderate Start:17-Jul-2015 Instruction Type:Provider Instructions for Treatment How to access health informa tion online Indication:Diabetes mellitus type 2, uncontrolled, without complications Start:08-Jul-2015 Instruction Type:Patient Education How to access health informa tion online - Detail Indication:Diabetes mellitus type 2, uncontrolled, without complications Start:08-Jul-2015 Instruction Type:Patient Education Patient Instructions Indication:Diabetes mellitus type 2, uncontrolled, without complications Start:08-Jul-2015 Instruction Type:Provider Instructions for Treatment cardiovascular counseling Indication:Coronary artery disease, non-occlusive Start:19-Jun-2015 Instruction Type:Provider Instructions for Treatment How to access health informa tion online Indication:Annual Medicare Physical Start:19-Jun-2015 Instruction Type:Patient Education How to access health informa tion online - Detail Indication:Annual Medicare Physical Start:19-Jun-2015 Instruction Type:Patient Education Patient Instructions Indication:Annual Medicare Physical Start:19-Jun-2015 Instruction Type:Provider Instructions for Treatment How to access health informa tion online Indication:Diabetes mellitus type 2, controlled Start:10-Apr-2015 Instruction Type:Patient Education How to access health informa tion online - Detail Indication:Diabetes mellitus type 2, controlled Start:10-Apr-2015 Instruction Type:Patient Education Patient Instructions Indication:Diabetes mellitus type 2, controlled Start:10-Apr-2015 Instruction Type:Provider Instructions for Treatment Patient Instructions Indication:Diabetes mellitus type 2, controlled Start:09-Jan-2015 Instruction Type:Provider Instructions for Treatment Patient Instructions Indication:Coronary artery disease, non-occlusive Start:10-Oct-2014 Instruction Type:Provider Instructions for Treatment How to access health informa tion online Indication:Diabetes mellitus type 2, uncontrolled, without complications Start:05-Jul-2014 Instruction Type:Patient Education How to access health informa tion online - Detail Indication:Diabetes mellitus type 2, uncontrolled, without complications Start:05-Jul-2014 Instruction Type:Patient Education Patient Instructions Indication:Diabetes mellitus type 2, uncontrolled, without complications Start:05-Jul-2014 Instruction Type:Provider Instructions for Treatment cardiovascular counseling Indication:Coronary artery disease, non-occlusive Start:11-Jun-2014 Instruction Type:Provider Instructions for Treatment How to access health informa tion online Indication:Diabetes mellitus type 2, controlled Start:04-Apr-2014 Instruction Type:Patient Education How to access health informa tion online - Detail Indication:Diabetes mellitus type 2, controlled Start:04-Apr-2014 Instruction Type:Patient Education Patient Instructions Indication:Diabetes mellitus type 2, controlled Start:04-Apr-2014 Instruction Type:Provider Instructions for Treatment Patient Instructions Indication:Diabetes mellitus type 2, controlled Start:03-Jan-2014 Instruction Type:Provider Instructions for Treatment cardiovascular counseling Indication:Coronary artery disease, non-occlusive Start:20-Jun-2013 Instruction Type:Provider Instructions for Treatment Patient Instructions Indication:Diabetes mellitus type 2, controlled Start:20-Jun-2013 Instruction Type:Provider Instructions for Treatment Patient Instructions Indication:COPD, moderate Start:11-Oct-2012 Instruction Type:Provider Instructions for Treatment Patient Instructions Indication:Coronary artery disease, non-occlusive Start:07-Jul-2012 Instruction Type:Provider Instructions for Treatment [facility] Work Phone: Instructions* Name Dates Details cardiovascular counseling Indication:Coronary artery disease, non-occlusive Start:20-Jul-2023 Instruction Type:Provider Instructions for Treatment Patient Instructions Indication:BMI 26.0-26.9,adult Start:20-Jul-2023 Instruction Type:Provider Instructions for Treatment How to Access Health Informa tion Online using Patient Portal and [employer] Indication:BMI 26.0-26.9,adult Start:20-Jul-2023 Instruction Type:Patient Education Patient Instructions Indication:BMI 26.0-26.9,adult Start:03-Jun-2023 Instruction Type:Provider Instructions for Treatment How to Access Health Informa tion Online using Patient Portal and [employer] Indication:BMI 26.0-26.9,adult Start:03-Jun-2023 Instruction Type:Patient Education Patient Instructions Indication:Smoker Start:02-Mar-2023 Instruction Type:Provider Instructions for Treatment How to Access Health Informa tion Online using Patient Portal and [employer] Indication:Smoker Start:02-Mar-2023 Instruction Type:Patient Education Patient Instructions Indication:BMI 26.0-26.9,adult Start:29-Nov-2022 Instruction Type:Provider Instructions for Treatment How to Access Health Informa tion Online using Patient Portal and [employer] Apps Indication:BMI 26.0-26.9,adult Start:29-Nov-2022 Instruction Type:Patient Education Patient Instructions Indication:BMI 26.0-26.9,adult Start:28-Jul-2022 Instruction Type:Provider Instructions for Treatment How to Access Health Informa tion Online using Patient Portal and [employer] Apps Indication:BMI 26.0-26.9,adult Start:28-Jul-2022 Instruction Type:Patient Education cardiovascular counseling Indication:Coronary artery disease, non-occlusive Start:16-Jul-2022 Instruction Type:Provider Instructions for Treatment Patient Instructions Indication:BMI 25.0-25.9,adult Start:16-Jul-2022 Instruction Type:Provider Instructions for Treatment How to Access Health Informa tion Online using Patient Portal and [employer] Apps Indication:BMI 25.0-25.9,adult Start:16-Jul-2022 Instruction Type:Patient Education Patient Instructions Indication:Diabetes mellitus type 2, controlled Start:07-Jun-2022 Instruction Type:Provider Instructions for Treatment How to Access Health Informa tion Online using Patient Portal and [employer] Apps Indication:Diabetes mellitus type 2, controlled Start:07-Jun-2022 Instruction Type:Patient Education Patient Instructions Indication:BMI 26.0-26.9,adult Start:21-Jan-2022 Instruction Type:Provider Instructions for Treatment How to Access Health Informa tion Online using Patient Portal and [employer] Apps Indication:BMI 26.0-26.9,adult Start:21-Jan-2022 Instruction Type:Patient Education Patient Instructions Indication:Smoker Start:16-Oct-2021 Instruction Type:Provider Instructions for Treatment How to Access Health Informa tion Online using Patient Portal and [employer] Apps Indication:Smoker Start:16-Oct-2021 Instruction Type:Patient Education cardiovascular counseling Indication:Coronary artery disease, non-occlusive Start:11-Aug-2020 Instruction Type:Provider Instructions for Treatment How to access health informa tion online Indication:BMI 26.0-26.9,adult Start:11-Aug-2020 Instruction Type:Patient Education How to access health informa tion online - Detail Indication:BMI 26.0-26.9,adult Start:11-Aug-2020 Instruction Type:Patient Education Patient Instructions Indication:BMI 26.0-26.9,adult Start:11-Aug-2020 Instruction Type:Provider Instructions for Treatment How to access health informa tion online Indication:Smoker Start:26-Jun-2020 Instruction Type:Patient Education How to access health informa tion online - Detail Indication:Smoker Start:26-Jun-2020 Instruction Type:Patient Education Patient Instructions Indication:Smoker Start:26-Jun-2020 Instruction Type:Provider Instructions for Treatment How to access health informa tion online Indication:BMI 26.0-26.9,adult Start:25-Feb-2020 Instruction Type:Patient Education How to access health informa tion online - Detail Indication:BMI 26.0-26.9,adult Start:25-Feb-2020 Instruction Type:Patient Education Patient Instructions Indication:BMI 26.0-26.9,adult Start:25-Feb-2020 Instruction Type:Provider Instructions for Treatment How to access health informa tion online Indication:Coronary artery disease, non-occlusive Start:29-Aug-2019 Instruction Type:Patient Education How to access health informa tion online - Detail Indication:Coronary artery disease, non-occlusive Start:29-Aug-2019 Instruction Type:Patient Education Patient Instructions Indication:Coronary artery disease, non-occlusive Start:29-Aug-2019 Instruction Type:Provider Instructions for Treatment cardiovascular counseling Indication:Coronary artery disease, non-occlusive Start:08-Aug-2019 Instruction Type:Provider Instructions for Treatment How to access health informa tion online Indication:Cigar smoker Start:08-Aug-2019 Instruction Type:Patient Education How to access health informa tion online - Detail Indication:Cigar smoker Start:08-Aug-2019 Instruction Type:Patient Education Patient Instructions Indication:Cigar smoker Start:08-Aug-2019 Instruction Type:Provider Instructions for Treatment cardiovascular counseling Indication:Coronary artery disease, non-occlusive Start:25-Jul-2018 Instruction Type:Provider Instructions for Treatment How to access health informa tion online Indication:BMI 27.0-27.9,adult Start:25-Jul-2018 Instruction Type:Patient Education How to access health informa tion online - Detail Indication:BMI 27.0-27.9,adult Start:25-Jul-2018 Instruction Type:Patient Education Patient Instructions Indication:BMI 27.0-27.9,adult Start:25-Jul-2018 Instruction Type:Provider Instructions for Treatment How to access health informa tion online Indication:Body mass index 26.0-26.9, adult Start:17-May-2018 Instruction Type:Patient Education How to access health informa tion online - Detail Indication:Body mass index 26.0-26.9, adult Start:17-May-2018 Instruction Type:Patient Education Patient Instructions Indication:Body mass index 26.0-26.9, adult Start:17-May-2018 Instruction Type:Provider Instructions for Treatment How to access health informa tion online Indication:Tobacco Use Start:05-Apr-2018 Instruction Type:Patient Education How to access health informa tion online - Detail Indication:Tobacco Use Start:05-Apr-2018 Instruction Type:Patient Education Patient Instructions Indication:Tobacco Use Start:05-Apr-2018 Instruction Type:Provider Instructions for Treatment How to access health informa tion online Indication:Body mass index 26.0-26.9, adult Start:14-Feb-2018 Instruction Type:Patient Education How to access health informa tion online - Detail Indication:Body mass index 26.0-26.9, adult Start:14-Feb-2018 Instruction Type:Patient Education Patient Instructions Indication:Body mass index 26.0-26.9, adult Start:14-Feb-2018 Instruction Type:Provider Instructions for Treatment How to access health informa tion online Indication:Diabetes mellitus type 2, uncontrolled, without complications Start:08-Nov-2017 Instruction Type:Patient Education How to access health informa tion online - Detail Indication:Diabetes mellitus type 2, uncontrolled, without complications Start:08-Nov-2017 Instruction Type:Patient Education Patient Instructions Indication:Diabetes mellitus type 2, uncontrolled, without complications Start:08-Nov-2017 Instruction Type:Provider Instructions for Treatment cardiovascular counseling Indication:Coronary artery disease, non-occlusive Start:27-Jun-2017 Instruction Type:Provider Instructions for Treatment How to access health informa tion online Indication:Tobacco Use Start:27-Jun-2017 Instruction Type:Patient Education How to access health informa tion online - Detail Indication:Tobacco Use Start:27-Jun-2017 Instruction Type:Patient Education Patient Instructions Indication:Tobacco Use Start:27-Jun-2017 Instruction Type:Provider Instructions for Treatment How to access health informa tion online Indication:Diabetes mellitus type 2, controlled Start:05-May-2017 Instruction Type:Patient Education How to access health informa tion online - Detail Indication:Diabetes mellitus type 2, controlled Start:05-May-2017 Instruction Type:Patient Education Patient Instructions Indication:Diabetes mellitus type 2, controlled Start:05-May-2017 Instruction Type:Provider Instructions for Treatment How to access health informa tion online Indication:Diabetes mellitus type 2, controlled Start:23-Dec-2016 Instruction Type:Patient Education How to access health informa tion online - Detail Indication:Diabetes mellitus type 2, controlled Start:23-Dec-2016 Instruction Type:Patient Education Patient Instructions Indication:Diabetes mellitus type 2, controlled Start:23-Dec-2016 Instruction Type:Provider Instructions for Treatment Patient Instructions Indication:Annual Medicare Physical Start:24-Jun-2016 Instruction Type:Provider Instructions for Treatment cardiovascular counseling Indication:Coronary artery disease, non-occlusive Start:24-Jun-2016 Instruction Type:Provider Instructions for Treatment How to access health informa tion online Indication:Diabetes mellitus type 2, controlled Start:17-Jun-2016 Instruction Type:Patient Education How to access health informa tion online - Detail Indication:Diabetes mellitus type 2, controlled Start:17-Jun-2016 Instruction Type:Patient Education Patient Instructions Indication:Diabetes mellitus type 2, controlled Start:17-Jun-2016 Instruction Type:Provider Instructions for Treatment How to access health informa tion online Indication:Diabetes mellitus type 2, controlled Start:13-Feb-2016 Instruction Type:Patient Education How to access health informa tion online - Detail Indication:Diabetes mellitus type 2, controlled Start:13-Feb-2016 Instruction Type:Patient Education Patient Instructions Indication:Diabetes mellitus type 2, controlled Start:13-Feb-2016 Instruction Type:Provider Instructions for Treatment How to access health informa tion online Indication:Diabetes mellitus type 2, controlled Start:12-Nov-2015 Instruction Type:Patient Education How to access health informa tion online - Detail Indication:Diabetes mellitus type 2, controlled Start:12-Nov-2015 Instruction Type:Patient Education Patient Instructions Indication:Diabetes mellitus type 2, controlled Start:12-Nov-2015 Instruction Type:Provider Instructions for Treatment Patient Instructions Indication:COPD, moderate Start:17-Jul-2015 Instruction Type:Provider Instructions for Treatment How to access health informa tion online Indication:Diabetes mellitus type 2, uncontrolled, without complications Start:08-Jul-2015 Instruction Type:Patient Education How to access health informa tion online - Detail Indication:Diabetes mellitus type 2, uncontrolled, without complications Start:08-Jul-2015 Instruction Type:Patient Education Patient Instructions Indication:Diabetes mellitus type 2, uncontrolled, without complications Start:08-Jul-2015 Instruction Type:Provider Instructions for Treatment cardiovascular counseling Indication:Coronary artery disease, non-occlusive Start:19-Jun-2015 Instruction Type:Provider Instructions for Treatment How to access health informa tion online Indication:Annual Medicare Physical Start:19-Jun-2015 Instruction Type:Patient Education How to access health informa tion online - Detail Indication:Annual Medicare Physical Start:19-Jun-2015 Instruction Type:Patient Education Patient Instructions Indication:Annual Medicare Physical Start:19-Jun-2015 Instruction Type:Provider Instructions for Treatment How to access health informa tion online Indication:Diabetes mellitus type 2, controlled Start:10-Apr-2015 Instruction Type:Patient Education How to access health informa tion online - Detail Indication:Diabetes mellitus type 2, controlled Start:10-Apr-2015 Instruction Type:Patient Education Patient Instructions Indication:Diabetes mellitus type 2, controlled Start:10-Apr-2015 Instruction Type:Provider Instructions for Treatment Patient Instructions Indication:Diabetes mellitus type 2, controlled Start:09-Jan-2015 Instruction Type:Provider Instructions for Treatment Patient Instructions Indication:Coronary artery disease, non-occlusive Start:10-Oct-2014 Instruction Type:Provider Instructions for Treatment How to access health informa tion online Indication:Diabetes mellitus type 2, uncontrolled, without complications Start:05-Jul-2014 Instruction Type:Patient Education How to access health informa tion online - Detail Indication:Diabetes mellitus type 2, uncontrolled, without complications Start:05-Jul-2014 Instruction Type:Patient Education Patient Instructions Indication:Diabetes mellitus type 2, uncontrolled, without complications Start:05-Jul-2014 Instruction Type:Provider Instructions for Treatment cardiovascular counseling Indication:Coronary artery disease, non-occlusive Start:11-Jun-2014 Instruction Type:Provider Instructions for Treatment How to access health informa tion online Indication:Diabetes mellitus type 2, controlled Start:04-Apr-2014 Instruction Type:Patient Education How to access health informa tion online - Detail Indication:Diabetes mellitus type 2, controlled Start:04-Apr-2014 Instruction Type:Patient Education Patient Instructions Indication:Diabetes mellitus type 2, controlled Start:04-Apr-2014 Instruction Type:Provider Instructions for Treatment Patient Instructions Indication:Diabetes mellitus type 2, controlled Start:03-Jan-2014 Instruction Type:Provider Instructions for Treatment cardiovascular counseling Indication:Coronary artery disease, non-occlusive Start:20-Jun-2013 Instruction Type:Provider Instructions for Treatment Patient Instructions Indication:Diabetes mellitus type 2, controlled Start:20-Jun-2013 Instruction Type:Provider Instructions for Treatment Patient Instructions Indication:COPD, moderate Start:11-Oct-2012 Instruction Type:Provider Instructions for Treatment Patient Instructions Indication:Coronary artery disease, non-occlusive Start:07-Jul-2012 Instruction Type:Provider Instructions for Treatment [facility] Work Phone: reason for referral (narrative)No reason for referral information [facility] Work Phone: Family History No Family History Records FoundUnknown Family Member Name Dates Details Brother 1 Comments:Elephant disease Status:Active Brother 2 Comments:DM Status:Active [place] 55 Status:Active First Degree Relatives Comments:Colon & prostate [place] Status:Active Mother Comments:DM, Status:Active Unknown Family Member Name Dates Details Brother 1 Comments:Elephant disease Status:Active Brother 2 Comments:DM Status:Active Father [place] 55 Status:Active First Degree Relatives Comments:Colon & prostate [place] Status:Active Mother Comments:DM, Status:Active Unknown Family Member Name Dates Details Brother 1 Comments:Elephant disease Status:Active Brother 2 Comments:DM Status:Active Father [place] before 55 Status:Active First Degree Relatives Comments:Colon & prostate [place] Status:Active Mother Comments:DM, Status:Active Unknown Family Member Name Dates Details Brother 1 Comments:Elephant disease Status:Active Brother 2 Comments:DM Status:Active [place] 55 Status:Active First Degree Relatives Comments:Colon & prostate [place] Status:Active Mother Comments:DM, Status:Active Unknown Family Member Name Dates Details Brother 1 Comments:Elephant disease Status:Active Brother 2 Comments:DM Status:Active [place] before 55 Status:Active First Degree Relatives Comments:Colon & prostate [place] Status:Active Mother Comments:DM, Status:Active Unknown Family Member Name Dates Details Brother 1 Comments:Elephant disease Status:Active Brother 2 Comments:DM Status:Active [place] before 55 Status:Active First Degree Relatives Comments:Colon & prostate [place] Status:Active Mother Comments:DM, Status:Active Unknown Family Member Name Dates Details Brother 1 Comments:Elephant disease Status:Active Brother 2 Comments:DM Status:Active [place] before 55 Status:Active First Degree Relatives Comments:Colon & prostate [place] Status:Active Mother Comments:DM, Status:Active Unknown Family Member Name Dates Details Brother 1 Comments:Elephant disease Status:Active Brother 2 Comments:DM Status:Active Father [place] before 55 Status:Active First Degree Relatives Comments:Colon & prostate [place] Status:Active Mother Comments:DM, Status:Active Unknown Family Member Name Dates Details Brother 1 Comments:Elephant disease Status:Active Brother 2 Comments:DM Status:Active Father [place] before 55 Status:Active First Degree Relatives Comments:Colon & prostate [place] Status:Active Mother Comments:DM, Status:Active Unknown Family Member Name Dates Details Brother 1 Comments:Elephant disease Status:Active Brother 2 Comments:DM Status:Active [place] before 55 Status:Active First Degree Relatives Comments:Colon & prostate [place] Status:Active Mother Comments:DM, Status:Active Unknown Family Member Name Dates Details Brother 1 Comments:Elephant disease Status:Active Brother 2 Comments:DM Status:Active [place] before 55 Status:Active First Degree Relatives Comments:Colon & prostate [place] Status:Active Mother Comments:DM, Status:Active Unknown Family Member Name Dates Details Brother 1 Comments:Elephant disease Status:Active Brother 2 Comments:DM Status:Active Father [place] before 55 Status:Active First Degree Relatives Comments:Colon & prostate [place] Status:Active Mother Comments:DM, Status:Active Unknown Family Member Name Dates Details Brother 1 Comments:Elephant disease Status:Active Brother 2 Comments:DM Status:Active Father [place] before 55 Status:Active First Degree Relatives Comments:Colon & prostate [place] Status:Active Mother Comments:DM, Status:Active Unknown Family Member Name Dates Details Brother 1 Comments:Elephant disease Status:Active Brother 2 Comments:DM Status:Active Father [place] before 55 Status:Active First Degree Relatives Comments:Colon & prostate [place] Status:Active Mother Comments:DM, Status:Active Unknown Family Member Name Dates Details Brother 1 Comments:Elephant disease Status:Active Brother 2 Comments:DM Status:Active Father [place] before 55 Status:Active First Degree Relatives Comments:Colon & prostate [place] Status:Active Mother Comments:DM, Status:Active Unknown Family Member Name Dates Details Brother 1 Comments:Elephant disease Status:Active Brother 2 Comments:DM Status:Active Father [place] before 55 Status:Active First Degree Relatives Comments:Colon & prostate [place] Status:Active Mother Comments:DM, Status:Active Relationship Condition Age at Onset Recorded Date/T bree mother Diabetes mellitus Unknown brother Diabetes mellitus Unknown Myocardial infarction Unknown father Myocardial infarction Unknown Coronary artery disease Unknown Unknown Family Member Name Dates Details Brother 1 Comments:Elephant disease Status:Active Brother 2 Comments:DM Status:Active [place] before 55 Status:Active First Degree Relatives Comments:Colon & prostate [place] Status:Active Mother Comments:DM, Status:Active Unknown Family Member Name Dates Details Brother 1 Comments:Elephant disease Status:Active Brother 2 Comments:DM Status:Active [place] before 55 Status:Active First Degree Relatives Comments:Colon & prostate [place] Status:Active Mother Comments:DM, Status:Active Unknown Family Member Name Dates Details Brother 1 Comments:Elephant disease Status:Active Brother 2 Comments:DM Status:Active [place] before 55 Status:Active First Degree Relatives Comments:Colon & prostate [place] Status:Active Mother Comments:DM, Status:Active Unknown Family Member Name Dates Details Brother 1 Comments:Elephant disease Status:Active Brother 2 Comments:DM Status:Active [place] before 55 Status:Active First Degree Relatives Comments:Colon & prostate [place] Status:Active Mother Comments:DM, Status:Active Unknown Family Member Name Dates Details Brother 1 Comments:Elephant disease Status:Active Brother 2 Comments:DM Status:Active Father [place] before 55 Status:Active First Degree Relatives Comments:Colon & prostate [place] Status:Active Mother Comments:DM, Status:Active Unknown Family Member Name Dates Details Brother 1 Comments:Elephant disease Status:Active Brother 2 Comments:DM Status:Active [place] before 55 Status:Active First Degree Relatives Comments:Colon & prostate [place] Status:Active Mother Comments:DM, Status:Active Unknown Family Member Name Dates Details Brother 1 Comments:Elephant disease Status:Active Brother 2 Comments:DM Status:Active [place] 55 Status:Active First Degree Relatives Comments:Colon & prostate [place] Status:Active Mother Comments:DM, Status:Active Unknown Family Member Name Dates Details Brother 1 Comments:Elephant disease Status:Active Brother 2 Comments:DM Status:Active [place] before 55 Status:Active First Degree Relatives Comments:Colon & prostate [place] Status:Active Mother Comments:DM, Status:Active Unknown Family Member Name Dates Details Brother 1 Comments:Elephant disease Status:Active Brother 2 Comments:DM Status:Active [place] before 55 Status:Active First Degree Relatives Comments:Colon & prostate [place] Status:Active Mother Comments:DM, Status:Active Unknown Family Member Name Dates Details Brother 1 Comments:Elephant disease Status:Active Brother 2 Comments:DM Status:Active [place] before 55 Status:Active First Degree Relatives Comments:Colon & prostate [place] Status:Active Mother Comments:DM, Status:Active Unknown Family Member Name Dates Details Brother 1 Comments:Elephant disease Status:Active Brother 2 Comments:DM Status:Active [place] 55 Status:Active First Degree Relatives Comments:Colon & prostate [place] Status:Active Mother Comments:DM, Status:Active Unknown Family Member Name Dates Details Brother 1 Comments:Elephant disease Status:Active Brother 2 Comments:DM Status:Active [place] before 55 Status:Active First Degree Relatives Comments:Colon & prostate [place] Status:Active Mother Comments:DM, Status:Active Unknown Family Member Name Dates Details Brother 1 Comments:Elephant disease Status:Active Brother 2 Comments:DM Status:Active [place] 55 Status:Active First Degree Relatives Comments:Colon & prostate [place] Status:Active Mother Comments:DM, Status:Active Unknown Family Member Name Dates Details Brother 1 Comments:Elephant disease Status:Active Brother 2 Comments:DM Status:Active [place] before 55 Status:Active First Degree Relatives Comments:Colon & prostate [place] Status:Active Mother Comments:DM, Status:Active Unknown Family Member Name Dates Details Brother 1 Comments:Elephant disease Status:Active Brother 2 Comments:DM Status:Active [place] before 55 Status:Active First Degree Relatives Comments:Colon & prostate [place] Status:Active Mother Comments:DM, Status:Active Unknown Family Member Name Dates Details Brother 1 Comments:Elephant disease Status:Active Brother 2 Comments:DM Status:Active [place] before 55 Status:Active First Degree Relatives Comments:Colon & prostate [place] Status:Active Mother Comments:DM, Status:Active Unknown Family Member Name Dates Details Brother 1 Comments:Elephant disease Status:Active Brother 2 Comments:DM Status:Active [place] 55 Status:Active First Degree Relatives Comments:Colon & prostate [place] Status:Active Mother Comments:DM, Status:Active Instructions Name Dates Details Body mass index 26.0-26.9, a dult : How to access health information online Indication:Body mass index 26.0-26.9, adult Body mass index 26.0-26.9, a dult : How to access health information online - Detail Indication:Body mass index 26.0-26.9, adult Body mass index 26.0-26.9, a dult : Patient Instructions Indication:Body mass index 26.0-26.9, adult Tobacco Use : How to access health information online Indication:Tobacco Use Tobacco Use : How to access health information online - Detail Indication:Tobacco Use Tobacco Use : Patient Instru ctions Indication:Tobacco Use Diabetes mellitus type 2, un controlled, without complications : How to access health information online Indication:Diabetes mellitus type 2, uncontrolled, without complications Diabetes mellitus type 2, un controlled, without complications : How to access health information online - Detail Indication:Diabetes mellitus type 2, uncontrolled, without complications Diabetes mellitus type 2, un controlled, without complications : Patient Instructions Indication:Diabetes mellitus type 2, uncontrolled, without complications Coronary artery disease, non -occlusive : cardiovascular counseling Indication:Coronary artery disease, non-occlusive Diabetes mellitus type 2, co ntrolled : How to access health information online Indication:Diabetes mellitus type 2, controlled Diabetes mellitus type 2, co ntrolled : How to access health information online - Detail Indication:Diabetes mellitus type 2, controlled Diabetes mellitus type 2, co ntrolled : Patient Instructions Indication:Diabetes mellitus type 2, controlled Annual Medicare Physical : P atient Instructions Indication:Annual Medicare Physical COPD, moderate : Patient Ins tructions Indication:COPD, moderate Annual Medicare Physical : H ow to access health information online Indication:Annual Medicare Physical Annual Medicare Physical : H ow to access health information online - Detail Indication:Annual Medicare Physical Coronary artery disease, non -occlusive : Patient Instructions Indication:Coronary artery disease, non-occlusive Name Dates Details Coronary artery disease, non -occlusive : cardiovascular counseling Indication:Coronary artery disease, non-occlusive BMI 27.0-27.9,adult : How to access health information online Indication:BMI 27.0-27.9,adult BMI 27.0-27.9,adult : How to access health information online - Detail Indication:BMI 27.0-27.9,adult BMI 27.0-27.9,adult : Patien t Instructions Indication:BMI 27.0-27.9,adult Body mass index 26.0-26.9, a dult : How to access health information online Indication:Body mass index 26.0-26.9, adult Body mass index 26.0-26.9, a dult : How to access health information online - Detail Indication:Body mass index 26.0-26.9, adult Body mass index 26.0-26.9, a dult : Patient Instructions Indication:Body mass index 26.0-26.9, adult Tobacco Use : How to access health information online Indication:Tobacco Use Tobacco Use : How to access health information online - Detail Indication:Tobacco Use Tobacco Use : Patient Instru ctions Indication:Tobacco Use Diabetes mellitus type 2, un controlled, without complications : How to access health information online Indication:Diabetes mellitus type 2, uncontrolled, without complications Diabetes mellitus type 2, un controlled, without complications : How to access health information online - Detail Indication:Diabetes mellitus type 2, uncontrolled, without complications Diabetes mellitus type 2, un controlled, without complications : Patient Instructions Indication:Diabetes mellitus type 2, uncontrolled, without complications Diabetes mellitus type 2, co ntrolled : How to access health information online Indication:Diabetes mellitus type 2, controlled Diabetes mellitus type 2, co ntrolled : How to access health information online - Detail Indication:Diabetes mellitus type 2, controlled Diabetes mellitus type 2, co ntrolled : Patient Instructions Indication:Diabetes mellitus type 2, controlled Annual Medicare Physical : P atient Instructions Indication:Annual Medicare Physical COPD, moderate : Patient Ins tructions Indication:COPD, moderate Annual Medicare Physical : H ow to access health information online Indication:Annual Medicare Physical Annual Medicare Physical : H ow to access health information online - Detail Indication:Annual Medicare Physical Coronary artery disease, non -occlusive : Patient Instructions Indication:Coronary artery disease, non-occlusive Name Dates Details Coronary artery disease, non -occlusive : cardiovascular counseling Indication:Coronary artery disease, non-occlusive BMI 27.0-27.9,adult : How to access health information online Indication:BMI 27.0-27.9,adult BMI 27.0-27.9,adult : How to access health information online - Detail Indication:BMI 27.0-27.9,adult BMI 27.0-27.9,adult : Patien t Instructions Indication:BMI 27.0-27.9,adult Body mass index 26.0-26.9, a dult : How to access health information online Indication:Body mass index 26.0-26.9, adult Body mass index 26.0-26.9, a dult : How to access health information online - Detail Indication:Body mass index 26.0-26.9, adult Body mass index 26.0-26.9, a dult : Patient Instructions Indication:Body mass index 26.0-26.9, adult Tobacco Use : How to access health information online Indication:Tobacco Use Tobacco Use : How to access health information online - Detail Indication:Tobacco Use Tobacco Use : Patient Instru ctions Indication:Tobacco Use Diabetes mellitus type 2, un controlled, without complications : How to access health information online Indication:Diabetes mellitus type 2, uncontrolled, without complications Diabetes mellitus type 2, un controlled, without complications : How to access health information online - Detail Indication:Diabetes mellitus type 2, uncontrolled, without complications Diabetes mellitus type 2, un controlled, without complications : Patient Instructions Indication:Diabetes mellitus type 2, uncontrolled, without complications Diabetes mellitus type 2, co ntrolled : How to access health information online Indication:Diabetes mellitus type 2, controlled Diabetes mellitus type 2, co ntrolled : How to access health information online - Detail Indication:Diabetes mellitus type 2, controlled Diabetes mellitus type 2, co ntrolled : Patient Instructions Indication:Diabetes mellitus type 2, controlled Annual Medicare Physical : P atient Instructions Indication:Annual Medicare Physical COPD, moderate : Patient Ins tructions Indication:COPD, moderate Annual Medicare Physical : H ow to access health information online Indication:Annual Medicare Physical Annual Medicare Physical : H ow to access health information online - Detail Indication:Annual Medicare Physical Coronary artery disease, non -occlusive : Patient Instructions Indication:Coronary artery disease, non-occlusive Name Dates Details cardiovascular counseling Indication:Coronary artery disease, non-occlusive Start:25-Jul-2018 Instruction Type:Provider Instructions for Treatment How to access health informa tion online Indication:BMI 27.0-27.9,adult Start:25-Jul-2018 Instruction Type:Patient Education How to access health informa tion online - Detail Indication:BMI 27.0-27.9,adult Start:25-Jul-2018 Instruction Type:Patient Education Patient Instructions Indication:BMI 27.0-27.9,adult Start:25-Jul-2018 Instruction Type:Provider Instructions for Treatment How to access health informa tion online Indication:Body mass index 26.0-26.9, adult Start:17-May-2018 Instruction Type:Patient Education How to access health informa tion online - Detail Indication:Body mass index 26.0-26.9, adult Start:17-May-2018 Instruction Type:Patient Education Patient Instructions Indication:Body mass index 26.0-26.9, adult Start:17-May-2018 Instruction Type:Provider Instructions for Treatment How to access health informa tion online Indication:Tobacco Use Start:05-Apr-2018 Instruction Type:Patient Education How to access health informa tion online - Detail Indication:Tobacco Use Start:05-Apr-2018 Instruction Type:Patient Education Patient Instructions Indication:Tobacco Use Start:05-Apr-2018 Instruction Type:Provider Instructions for Treatment How to access health informa tion online Indication:Body mass index 26.0-26.9, adult Start:14-Feb-2018 Instruction Type:Patient Education How to access health informa tion online - Detail Indication:Body mass index 26.0-26.9, adult Start:14-Feb-2018 Instruction Type:Patient Education Patient Instructions Indication:Body mass index 26.0-26.9, adult Start:14-Feb-2018 Instruction Type:Provider Instructions for Treatment How to access health informa tion online Indication:Diabetes mellitus type 2, uncontrolled, without complications Start:08-Nov-2017 Instruction Type:Patient Education How to access health informa tion online - Detail Indication:Diabetes mellitus type 2, uncontrolled, without complications Start:08-Nov-2017 Instruction Type:Patient Education Patient Instructions Indication:Diabetes mellitus type 2, uncontrolled, without complications Start:08-Nov-2017 Instruction Type:Provider Instructions for Treatment cardiovascular counseling Indication:Coronary artery disease, non-occlusive Start:27-Jun-2017 Instruction Type:Provider Instructions for Treatment How to access health informa tion online Indication:Tobacco Use Start:27-Jun-2017 Instruction Type:Patient Education How to access health informa tion online - Detail Indication:Tobacco Use Start:27-Jun-2017 Instruction Type:Patient Education Patient Instructions Indication:Tobacco Use Start:27-Jun-2017 Instruction Type:Provider Instructions for Treatment How to access health informa tion online Indication:Diabetes mellitus type 2, controlled Start:05-May-2017 Instruction Type:Patient Education How to access health informa tion online - Detail Indication:Diabetes mellitus type 2, controlled Start:05-May-2017 Instruction Type:Patient Education Patient Instructions Indication:Diabetes mellitus type 2, controlled Start:05-May-2017 Instruction Type:Provider Instructions for Treatment How to access health informa tion online Indication:Diabetes mellitus type 2, controlled Start:23-Dec-2016 Instruction Type:Patient Education How to access health informa tion online - Detail Indication:Diabetes mellitus type 2, controlled Start:23-Dec-2016 Instruction Type:Patient Education Patient Instructions Indication:Diabetes mellitus type 2, controlled Start:23-Dec-2016 Instruction Type:Provider Instructions for Treatment Patient Instructions Indication:Annual Medicare Physical Start:24-Jun-2016 Instruction Type:Provider Instructions for Treatment cardiovascular counseling Indication:Coronary artery disease, non-occlusive Start:24-Jun-2016 Instruction Type:Provider Instructions for Treatment How to access health informa tion online Indication:Diabetes mellitus type 2, controlled Start:17-Jun-2016 Instruction Type:Patient Education How to access health informa tion online - Detail Indication:Diabetes mellitus type 2, controlled Start:17-Jun-2016 Instruction Type:Patient Education Patient Instructions Indication:Diabetes mellitus type 2, controlled Start:17-Jun-2016 Instruction Type:Provider Instructions for Treatment How to access health informa tion online Indication:Diabetes mellitus type 2, controlled Start:13-Feb-2016 Instruction Type:Patient Education How to access health informa tion online - Detail Indication:Diabetes mellitus type 2, controlled Start:13-Feb-2016 Instruction Type:Patient Education Patient Instructions Indication:Diabetes mellitus type 2, controlled Start:13-Feb-2016 Instruction Type:Provider Instructions for Treatment How to access health informa tion online Indication:Diabetes mellitus type 2, controlled Start:12-Nov-2015 Instruction Type:Patient Education How to access health informa tion online - Detail Indication:Diabetes mellitus type 2, controlled Start:12-Nov-2015 Instruction Type:Patient Education Patient Instructions Indication:Diabetes mellitus type 2, controlled Start:12-Nov-2015 Instruction Type:Provider Instructions for Treatment Patient Instructions Indication:COPD, moderate Start:17-Jul-2015 Instruction Type:Provider Instructions for Treatment How to access health informa tion online Indication:Diabetes mellitus type 2, uncontrolled, without complications Start:08-Jul-2015 Instruction Type:Patient Education How to access health informa tion online - Detail Indication:Diabetes mellitus type 2, uncontrolled, without complications Start:08-Jul-2015 Instruction Type:Patient Education Patient Instructions Indication:Diabetes mellitus type 2, uncontrolled, without complications Start:08-Jul-2015 Instruction Type:Provider Instructions for Treatment cardiovascular counseling Indication:Coronary artery disease, non-occlusive Start:19-Jun-2015 Instruction Type:Provider Instructions for Treatment How to access health informa tion online Indication:Annual Medicare Physical Start:19-Jun-2015 Instruction Type:Patient Education How to access health informa tion online - Detail Indication:Annual Medicare Physical Start:19-Jun-2015 Instruction Type:Patient Education Patient Instructions Indication:Annual Medicare Physical Start:19-Jun-2015 Instruction Type:Provider Instructions for Treatment How to access health informa tion online Indication:Diabetes mellitus type 2, controlled Start:10-Apr-2015 Instruction Type:Patient Education How to access health informa tion online - Detail Indication:Diabetes mellitus type 2, controlled Start:10-Apr-2015 Instruction Type:Patient Education Patient Instructions Indication:Diabetes mellitus type 2, controlled Start:10-Apr-2015 Instruction Type:Provider Instructions for Treatment Patient Instructions Indication:Diabetes mellitus type 2, controlled Start:09-Jan-2015 Instruction Type:Provider Instructions for Treatment Patient Instructions Indication:Coronary artery disease, non-occlusive Start:10-Oct-2014 Instruction Type:Provider Instructions for Treatment How to access health informa tion online Indication:Diabetes mellitus type 2, uncontrolled, without complications Start:05-Jul-2014 Instruction Type:Patient Education How to access health informa tion online - Detail Indication:Diabetes mellitus type 2, uncontrolled, without complications Start:05-Jul-2014 Instruction Type:Patient Education Patient Instructions Indication:Diabetes mellitus type 2, uncontrolled, without complications Start:05-Jul-2014 Instruction Type:Provider Instructions for Treatment cardiovascular counseling Indication:Coronary artery disease, non-occlusive Start:11-Jun-2014 Instruction Type:Provider Instructions for Treatment How to access health informa tion online Indication:Diabetes mellitus type 2, controlled Start:04-Apr-2014 Instruction Type:Patient Education How to access health informa tion online - Detail Indication:Diabetes mellitus type 2, controlled Start:04-Apr-2014 Instruction Type:Patient Education Patient Instructions Indication:Diabetes mellitus type 2, controlled Start:04-Apr-2014 Instruction Type:Provider Instructions for Treatment Patient Instructions Indication:Diabetes mellitus type 2, controlled Start:03-Jan-2014 Instruction Type:Provider Instructions for Treatment cardiovascular counseling Indication:Coronary artery disease, non-occlusive Start:20-Jun-2013 Instruction Type:Provider Instructions for Treatment Patient Instructions Indication:Diabetes mellitus type 2, controlled Start:20-Jun-2013 Instruction Type:Provider Instructions for Treatment Patient Instructions Indication:COPD, moderate Start:11-Oct-2012 Instruction Type:Provider Instructions for Treatment Patient Instructions Indication:Coronary artery disease, non-occlusive Start:07-Jul-2012 Instruction Type:Provider Instructions for Treatment Name Dates Details cardiovascular counseling Indication:Coronary artery disease, non-occlusive Start:08-Aug-2019 Instruction Type:Provider Instructions for Treatment How to access health informa tion online Indication:Cigar smoker Start:08-Aug-2019 Instruction Type:Patient Education How to access health informa tion online - Detail Indication:Cigar smoker Start:08-Aug-2019 Instruction Type:Patient Education Patient Instructions Indication:Cigar smoker Start:08-Aug-2019 Instruction Type:Provider Instructions for Treatment cardiovascular counseling Indication:Coronary artery disease, non-occlusive Start:25-Jul-2018 Instruction Type:Provider Instructions for Treatment How to access health informa tion online Indication:BMI 27.0-27.9,adult Start:25-Jul-2018 Instruction Type:Patient Education How to access health informa tion online - Detail Indication:BMI 27.0-27.9,adult Start:25-Jul-2018 Instruction Type:Patient Education Patient Instructions Indication:BMI 27.0-27.9,adult Start:25-Jul-2018 Instruction Type:Provider Instructions for Treatment How to access health informa tion online Indication:Body mass index 26.0-26.9, adult Start:17-May-2018 Instruction Type:Patient Education How to access health informa tion online - Detail Indication:Body mass index 26.0-26.9, adult Start:17-May-2018 Instruction Type:Patient Education Patient Instructions Indication:Body mass index 26.0-26.9, adult Start:17-May-2018 Instruction Type:Provider Instructions for Treatment How to access health informa tion online Indication:Tobacco Use Start:05-Apr-2018 Instruction Type:Patient Education How to access health informa tion online - Detail Indication:Tobacco Use Start:05-Apr-2018 Instruction Type:Patient Education Patient Instructions Indication:Tobacco Use Start:05-Apr-2018 Instruction Type:Provider Instructions for Treatment How to access health informa tion online Indication:Body mass index 26.0-26.9, adult Start:14-Feb-2018 Instruction Type:Patient Education How to access health informa tion online - Detail Indication:Body mass index 26.0-26.9, adult Start:14-Feb-2018 Instruction Type:Patient Education Patient Instructions Indication:Body mass index 26.0-26.9, adult Start:14-Feb-2018 Instruction Type:Provider Instructions for Treatment How to access health informa tion online Indication:Diabetes mellitus type 2, uncontrolled, without complications Start:08-Nov-2017 Instruction Type:Patient Education How to access health informa tion online - Detail Indication:Diabetes mellitus type 2, uncontrolled, without complications Start:08-Nov-2017 Instruction Type:Patient Education Patient Instructions Indication:Diabetes mellitus type 2, uncontrolled, without complications Start:08-Nov-2017 Instruction Type:Provider Instructions for Treatment cardiovascular counseling Indication:Coronary artery disease, non-occlusive Start:27-Jun-2017 Instruction Type:Provider Instructions for Treatment How to access health informa tion online Indication:Tobacco Use Start:27-Jun-2017 Instruction Type:Patient Education How to access health informa tion online - Detail Indication:Tobacco Use Start:27-Jun-2017 Instruction Type:Patient Education Patient Instructions Indication:Tobacco Use Start:27-Jun-2017 Instruction Type:Provider Instructions for Treatment How to access health informa tion online Indication:Diabetes mellitus type 2, controlled Start:05-May-2017 Instruction Type:Patient Education How to access health informa tion online - Detail Indication:Diabetes mellitus type 2, controlled Start:05-May-2017 Instruction Type:Patient Education Patient Instructions Indication:Diabetes mellitus type 2, controlled Start:05-May-2017 Instruction Type:Provider Instructions for Treatment How to access health informa tion online Indication:Diabetes mellitus type 2, controlled Start:23-Dec-2016 Instruction Type:Patient Education How to access health informa tion online - Detail Indication:Diabetes mellitus type 2, controlled Start:23-Dec-2016 Instruction Type:Patient Education Patient Instructions Indication:Diabetes mellitus type 2, controlled Start:23-Dec-2016 Instruction Type:Provider Instructions for Treatment Patient Instructions Indication:Annual Medicare Physical Start:24-Jun-2016 Instruction Type:Provider Instructions for Treatment cardiovascular counseling Indication:Coronary artery disease, non-occlusive Start:24-Jun-2016 Instruction Type:Provider Instructions for Treatment How to access health informa tion online Indication:Diabetes mellitus type 2, controlled Start:17-Jun-2016 Instruction Type:Patient Education How to access health informa tion online - Detail Indication:Diabetes mellitus type 2, controlled Start:17-Jun-2016 Instruction Type:Patient Education Patient Instructions Indication:Diabetes mellitus type 2, controlled Start:17-Jun-2016 Instruction Type:Provider Instructions for Treatment How to access health informa tion online Indication:Diabetes mellitus type 2, controlled Start:13-Feb-2016 Instruction Type:Patient Education How to access health informa tion online - Detail Indication:Diabetes mellitus type 2, controlled Start:13-Feb-2016 Instruction Type:Patient Education Patient Instructions Indication:Diabetes mellitus type 2, controlled Start:13-Feb-2016 Instruction Type:Provider Instructions for Treatment How to access health informa tion online Indication:Diabetes mellitus type 2, controlled Start:12-Nov-2015 Instruction Type:Patient Education How to access health informa tion online - Detail Indication:Diabetes mellitus type 2, controlled Start:12-Nov-2015 Instruction Type:Patient Education Patient Instructions Indication:Diabetes mellitus type 2, controlled Start:12-Nov-2015 Instruction Type:Provider Instructions for Treatment Patient Instructions Indication:COPD, moderate Start:17-Jul-2015 Instruction Type:Provider Instructions for Treatment How to access health informa tion online Indication:Diabetes mellitus type 2, uncontrolled, without complications Start:08-Jul-2015 Instruction Type:Patient Education How to access health informa tion online - Detail Indication:Diabetes mellitus type 2, uncontrolled, without complications Start:08-Jul-2015 Instruction Type:Patient Education Patient Instructions Indication:Diabetes mellitus type 2, uncontrolled, without complications Start:08-Jul-2015 Instruction Type:Provider Instructions for Treatment cardiovascular counseling Indication:Coronary artery disease, non-occlusive Start:19-Jun-2015 Instruction Type:Provider Instructions for Treatment How to access health informa tion online Indication:Annual Medicare Physical Start:19-Jun-2015 Instruction Type:Patient Education How to access health informa tion online - Detail Indication:Annual Medicare Physical Start:19-Jun-2015 Instruction Type:Patient Education Patient Instructions Indication:Annual Medicare Physical Start:19-Jun-2015 Instruction Type:Provider Instructions for Treatment How to access health informa tion online Indication:Diabetes mellitus type 2, controlled Start:10-Apr-2015 Instruction Type:Patient Education How to access health informa tion online - Detail Indication:Diabetes mellitus type 2, controlled Start:10-Apr-2015 Instruction Type:Patient Education Patient Instructions Indication:Diabetes mellitus type 2, controlled Start:10-Apr-2015 Instruction Type:Provider Instructions for Treatment Patient Instructions Indication:Diabetes mellitus type 2, controlled Start:09-Jan-2015 Instruction Type:Provider Instructions for Treatment Patient Instructions Indication:Coronary artery disease, non-occlusive Start:10-Oct-2014 Instruction Type:Provider Instructions for Treatment How to access health informa tion online Indication:Diabetes mellitus type 2, uncontrolled, without complications Start:05-Jul-2014 Instruction Type:Patient Education How to access health informa tion online - Detail Indication:Diabetes mellitus type 2, uncontrolled, without complications Start:05-Jul-2014 Instruction Type:Patient Education Patient Instructions Indication:Diabetes mellitus type 2, uncontrolled, without complications Start:05-Jul-2014 Instruction Type:Provider Instructions for Treatment cardiovascular counseling Indication:Coronary artery disease, non-occlusive Start:11-Jun-2014 Instruction Type:Provider Instructions for Treatment How to access health informa tion online Indication:Diabetes mellitus type 2, controlled Start:04-Apr-2014 Instruction Type:Patient Education How to access health informa tion online - Detail Indication:Diabetes mellitus type 2, controlled Start:04-Apr-2014 Instruction Type:Patient Education Patient Instructions Indication:Diabetes mellitus type 2, controlled Start:04-Apr-2014 Instruction Type:Provider Instructions for Treatment Patient Instructions Indication:Diabetes mellitus type 2, controlled Start:03-Jan-2014 Instruction Type:Provider Instructions for Treatment cardiovascular counseling Indication:Coronary artery disease, non-occlusive Start:20-Jun-2013 Instruction Type:Provider Instructions for Treatment Patient Instructions Indication:Diabetes mellitus type 2, controlled Start:20-Jun-2013 Instruction Type:Provider Instructions for Treatment Patient Instructions Indication:COPD, moderate Start:11-Oct-2012 Instruction Type:Provider Instructions for Treatment Patient Instructions Indication:Coronary artery disease, non-occlusive Start:07-Jul-2012 Instruction Type:Provider Instructions for Treatment Name Dates Details How to access health informa tion online Indication:BMI 26.0-26.9,adult Start:25-Feb-2020 Instruction Type:Patient Education How to access health informa tion online - Detail Indication:BMI 26.0-26.9,adult Start:25-Feb-2020 Instruction Type:Patient Education Patient Instructions Indication:BMI 26.0-26.9,adult Start:25-Feb-2020 Instruction Type:Provider Instructions for Treatment How to access health informa tion online Indication:Coronary artery disease, non-occlusive Start:29-Aug-2019 Instruction Type:Patient Education How to access health informa tion online - Detail Indication:Coronary artery disease, non-occlusive Start:29-Aug-2019 Instruction Type:Patient Education Patient Instructions Indication:Coronary artery disease, non-occlusive Start:29-Aug-2019 Instruction Type:Provider Instructions for Treatment cardiovascular counseling Indication:Coronary artery disease, non-occlusive Start:08-Aug-2019 Instruction Type:Provider Instructions for Treatment How to access health informa tion online Indication:Cigar smoker Start:08-Aug-2019 Instruction Type:Patient Education How to access health informa tion online - Detail Indication:Cigar smoker Start:08-Aug-2019 Instruction Type:Patient Education Patient Instructions Indication:Cigar smoker Start:08-Aug-2019 Instruction Type:Provider Instructions for Treatment cardiovascular counseling Indication:Coronary artery disease, non-occlusive Start:25-Jul-2018 Instruction Type:Provider Instructions for Treatment How to access health informa tion online Indication:BMI 27.0-27.9,adult Start:25-Jul-2018 Instruction Type:Patient Education How to access health informa tion online - Detail Indication:BMI 27.0-27.9,adult Start:25-Jul-2018 Instruction Type:Patient Education Patient Instructions Indication:BMI 27.0-27.9,adult Start:25-Jul-2018 Instruction Type:Provider Instructions for Treatment How to access health informa tion online Indication:Body mass index 26.0-26.9, adult Start:17-May-2018 Instruction Type:Patient Education How to access health informa tion online - Detail Indication:Body mass index 26.0-26.9, adult Start:17-May-2018 Instruction Type:Patient Education Patient Instructions Indication:Body mass index 26.0-26.9, adult Start:17-May-2018 Instruction Type:Provider Instructions for Treatment How to access health informa tion online Indication:Tobacco Use Start:05-Apr-2018 Instruction Type:Patient Education How to access health informa tion online - Detail Indication:Tobacco Use Start:05-Apr-2018 Instruction Type:Patient Education Patient Instructions Indication:Tobacco Use Start:05-Apr-2018 Instruction Type:Provider Instructions for Treatment How to access health informa tion online Indication:Body mass index 26.0-26.9, adult Start:14-Feb-2018 Instruction Type:Patient Education How to access health informa tion online - Detail Indication:Body mass index 26.0-26.9, adult Start:14-Feb-2018 Instruction Type:Patient Education Patient Instructions Indication:Body mass index 26.0-26.9, adult Start:14-Feb-2018 Instruction Type:Provider Instructions for Treatment How to access health informa tion online Indication:Diabetes mellitus type 2, uncontrolled, without complications Start:08-Nov-2017 Instruction Type:Patient Education How to access health informa tion online - Detail Indication:Diabetes mellitus type 2, uncontrolled, without complications Start:08-Nov-2017 Instruction Type:Patient Education Patient Instructions Indication:Diabetes mellitus type 2, uncontrolled, without complications Start:08-Nov-2017 Instruction Type:Provider Instructions for Treatment cardiovascular counseling Indication:Coronary artery disease, non-occlusive Start:27-Jun-2017 Instruction Type:Provider Instructions for Treatment How to access health informa tion online Indication:Tobacco Use Start:27-Jun-2017 Instruction Type:Patient Education How to access health informa tion online - Detail Indication:Tobacco Use Start:27-Jun-2017 Instruction Type:Patient Education Patient Instructions Indication:Tobacco Use Start:27-Jun-2017 Instruction Type:Provider Instructions for Treatment How to access health informa tion online Indication:Diabetes mellitus type 2, controlled Start:05-May-2017 Instruction Type:Patient Education How to access health informa tion online - Detail Indication:Diabetes mellitus type 2, controlled Start:05-May-2017 Instruction Type:Patient Education Patient Instructions Indication:Diabetes mellitus type 2, controlled Start:05-May-2017 Instruction Type:Provider Instructions for Treatment How to access health informa tion online Indication:Diabetes mellitus type 2, controlled Start:23-Dec-2016 Instruction Type:Patient Education How to access health informa tion online - Detail Indication:Diabetes mellitus type 2, controlled Start:23-Dec-2016 Instruction Type:Patient Education Patient Instructions Indication:Diabetes mellitus type 2, controlled Start:23-Dec-2016 Instruction Type:Provider Instructions for Treatment Patient Instructions Indication:Annual Medicare Physical Start:24-Jun-2016 Instruction Type:Provider Instructions for Treatment cardiovascular counseling Indication:Coronary artery disease, non-occlusive Start:24-Jun-2016 Instruction Type:Provider Instructions for Treatment How to access health informa tion online Indication:Diabetes mellitus type 2, controlled Start:17-Jun-2016 Instruction Type:Patient Education How to access health informa tion online - Detail Indication:Diabetes mellitus type 2, controlled Start:17-Jun-2016 Instruction Type:Patient Education Patient Instructions Indication:Diabetes mellitus type 2, controlled Start:17-Jun-2016 Instruction Type:Provider Instructions for Treatment How to access health informa tion online Indication:Diabetes mellitus type 2, controlled Start:13-Feb-2016 Instruction Type:Patient Education How to access health informa tion online - Detail Indication:Diabetes mellitus type 2, controlled Start:13-Feb-2016 Instruction Type:Patient Education Patient Instructions Indication:Diabetes mellitus type 2, controlled Start:13-Feb-2016 Instruction Type:Provider Instructions for Treatment How to access health informa tion online Indication:Diabetes mellitus type 2, controlled Start:12-Nov-2015 Instruction Type:Patient Education How to access health informa tion online - Detail Indication:Diabetes mellitus type 2, controlled Start:12-Nov-2015 Instruction Type:Patient Education Patient Instructions Indication:Diabetes mellitus type 2, controlled Start:12-Nov-2015 Instruction Type:Provider Instructions for Treatment Patient Instructions Indication:COPD, moderate Start:17-Jul-2015 Instruction Type:Provider Instructions for Treatment How to access health informa tion online Indication:Diabetes mellitus type 2, uncontrolled, without complications Start:08-Jul-2015 Instruction Type:Patient Education How to access health informa tion online - Detail Indication:Diabetes mellitus type 2, uncontrolled, without complications Start:08-Jul-2015 Instruction Type:Patient Education Patient Instructions Indication:Diabetes mellitus type 2, uncontrolled, without complications Start:08-Jul-2015 Instruction Type:Provider Instructions for Treatment cardiovascular counseling Indication:Coronary artery disease, non-occlusive Start:19-Jun-2015 Instruction Type:Provider Instructions for Treatment How to access health informa tion online Indication:Annual Medicare Physical Start:19-Jun-2015 Instruction Type:Patient Education How to access health informa tion online - Detail Indication:Annual Medicare Physical Start:19-Jun-2015 Instruction Type:Patient Education Patient Instructions Indication:Annual Medicare Physical Start:19-Jun-2015 Instruction Type:Provider Instructions for Treatment How to access health informa tion online Indication:Diabetes mellitus type 2, controlled Start:10-Apr-2015 Instruction Type:Patient Education How to access health informa tion online - Detail Indication:Diabetes mellitus type 2, controlled Start:10-Apr-2015 Instruction Type:Patient Education Patient Instructions Indication:Diabetes mellitus type 2, controlled Start:10-Apr-2015 Instruction Type:Provider Instructions for Treatment Patient Instructions Indication:Diabetes mellitus type 2, controlled Start:09-Jan-2015 Instruction Type:Provider Instructions for Treatment Patient Instructions Indication:Coronary artery disease, non-occlusive Start:10-Oct-2014 Instruction Type:Provider Instructions for Treatment How to access health informa tion online Indication:Diabetes mellitus type 2, uncontrolled, without complications Start:05-Jul-2014 Instruction Type:Patient Education How to access health informa tion online - Detail Indication:Diabetes mellitus type 2, uncontrolled, without complications Start:05-Jul-2014 Instruction Type:Patient Education Patient Instructions Indication:Diabetes mellitus type 2, uncontrolled, without complications Start:05-Jul-2014 Instruction Type:Provider Instructions for Treatment cardiovascular counseling Indication:Coronary artery disease, non-occlusive Start:11-Jun-2014 Instruction Type:Provider Instructions for Treatment How to access health informa tion online Indication:Diabetes mellitus type 2, controlled Start:04-Apr-2014 Instruction Type:Patient Education How to access health informa tion online - Detail Indication:Diabetes mellitus type 2, controlled Start:04-Apr-2014 Instruction Type:Patient Education Patient Instructions Indication:Diabetes mellitus type 2, controlled Start:04-Apr-2014 Instruction Type:Provider Instructions for Treatment Patient Instructions Indication:Diabetes mellitus type 2, controlled Start:03-Jan-2014 Instruction Type:Provider Instructions for Treatment cardiovascular counseling Indication:Coronary artery disease, non-occlusive Start:20-Jun-2013 Instruction Type:Provider Instructions for Treatment Patient Instructions Indication:Diabetes mellitus type 2, controlled Start:20-Jun-2013 Instruction Type:Provider Instructions for Treatment Patient Instructions Indication:COPD, moderate Start:11-Oct-2012 Instruction Type:Provider Instructions for Treatment Patient Instructions Indication:Coronary artery disease, non-occlusive Start:07-Jul-2012 Instruction Type:Provider Instructions for Treatment Name Dates Details How to access health informa tion online Indication:Smoker Start:26-Jun-2020 Instruction Type:Patient Education How to access health informa tion online - Detail Indication:Smoker Start:26-Jun-2020 Instruction Type:Patient Education Patient Instructions Indication:Smoker Start:26-Jun-2020 Instruction Type:Provider Instructions for Treatment How to access health informa tion online Indication:BMI 26.0-26.9,adult Start:25-Feb-2020 Instruction Type:Patient Education How to access health informa tion online - Detail Indication:BMI 26.0-26.9,adult Start:25-Feb-2020 Instruction Type:Patient Education Patient Instructions Indication:BMI 26.0-26.9,adult Start:25-Feb-2020 Instruction Type:Provider Instructions for Treatment How to access health informa tion online Indication:Coronary artery disease, non-occlusive Start:29-Aug-2019 Instruction Type:Patient Education How to access health informa tion online - Detail Indication:Coronary artery disease, non-occlusive Start:29-Aug-2019 Instruction Type:Patient Education Patient Instructions Indication:Coronary artery disease, non-occlusive Start:29-Aug-2019 Instruction Type:Provider Instructions for Treatment cardiovascular counseling Indication:Coronary artery disease, non-occlusive Start:08-Aug-2019 Instruction Type:Provider Instructions for Treatment How to access health informa tion online Indication:Cigar smoker Start:08-Aug-2019 Instruction Type:Patient Education How to access health informa tion online - Detail Indication:Cigar smoker Start:08-Aug-2019 Instruction Type:Patient Education Patient Instructions Indication:Cigar smoker Start:08-Aug-2019 Instruction Type:Provider Instructions for Treatment cardiovascular counseling Indication:Coronary artery disease, non-occlusive Start:25-Jul-2018 Instruction Type:Provider Instructions for Treatment How to access health informa tion online Indication:BMI 27.0-27.9,adult Start:25-Jul-2018 Instruction Type:Patient Education How to access health informa tion online - Detail Indication:BMI 27.0-27.9,adult Start:25-Jul-2018 Instruction Type:Patient Education Patient Instructions Indication:BMI 27.0-27.9,adult Start:25-Jul-2018 Instruction Type:Provider Instructions for Treatment How to access health informa tion online Indication:Body mass index 26.0-26.9, adult Start:17-May-2018 Instruction Type:Patient Education How to access health informa tion online - Detail Indication:Body mass index 26.0-26.9, adult Start:17-May-2018 Instruction Type:Patient Education Patient Instructions Indication:Body mass index 26.0-26.9, adult Start:17-May-2018 Instruction Type:Provider Instructions for Treatment How to access health informa tion online Indication:Tobacco Use Start:05-Apr-2018 Instruction Type:Patient Education How to access health informa tion online - Detail Indication:Tobacco Use Start:05-Apr-2018 Instruction Type:Patient Education Patient Instructions Indication:Tobacco Use Start:05-Apr-2018 Instruction Type:Provider Instructions for Treatment How to access health informa tion online Indication:Body mass index 26.0-26.9, adult Start:14-Feb-2018 Instruction Type:Patient Education How to access health informa tion online - Detail Indication:Body mass index 26.0-26.9, adult Start:14-Feb-2018 Instruction Type:Patient Education Patient Instructions Indication:Body mass index 26.0-26.9, adult Start:14-Feb-2018 Instruction Type:Provider Instructions for Treatment How to access health informa tion online Indication:Diabetes mellitus type 2, uncontrolled, without complications Start:08-Nov-2017 Instruction Type:Patient Education How to access health informa tion online - Detail Indication:Diabetes mellitus type 2, uncontrolled, without complications Start:08-Nov-2017 Instruction Type:Patient Education Patient Instructions Indication:Diabetes mellitus type 2, uncontrolled, without complications Start:08-Nov-2017 Instruction Type:Provider Instructions for Treatment cardiovascular counseling Indication:Coronary artery disease, non-occlusive Start:27-Jun-2017 Instruction Type:Provider Instructions for Treatment How to access health informa tion online Indication:Tobacco Use Start:27-Jun-2017 Instruction Type:Patient Education How to access health informa tion online - Detail Indication:Tobacco Use Start:27-Jun-2017 Instruction Type:Patient Education Patient Instructions Indication:Tobacco Use Start:27-Jun-2017 Instruction Type:Provider Instructions for Treatment How to access health informa tion online Indication:Diabetes mellitus type 2, controlled Start:05-May-2017 Instruction Type:Patient Education How to access health informa tion online - Detail Indication:Diabetes mellitus type 2, controlled Start:05-May-2017 Instruction Type:Patient Education Patient Instructions Indication:Diabetes mellitus type 2, controlled Start:05-May-2017 Instruction Type:Provider Instructions for Treatment How to access health informa tion online Indication:Diabetes mellitus type 2, controlled Start:23-Dec-2016 Instruction Type:Patient Education How to access health informa tion online - Detail Indication:Diabetes mellitus type 2, controlled Start:23-Dec-2016 Instruction Type:Patient Education Patient Instructions Indication:Diabetes mellitus type 2, controlled Start:23-Dec-2016 Instruction Type:Provider Instructions for Treatment Patient Instructions Indication:Annual Medicare Physical Start:24-Jun-2016 Instruction Type:Provider Instructions for Treatment cardiovascular counseling Indication:Coronary artery disease, non-occlusive Start:24-Jun-2016 Instruction Type:Provider Instructions for Treatment How to access health informa tion online Indication:Diabetes mellitus type 2, controlled Start:17-Jun-2016 Instruction Type:Patient Education How to access health informa tion online - Detail Indication:Diabetes mellitus type 2, controlled Start:17-Jun-2016 Instruction Type:Patient Education Patient Instructions Indication:Diabetes mellitus type 2, controlled Start:17-Jun-2016 Instruction Type:Provider Instructions for Treatment How to access health informa tion online Indication:Diabetes mellitus type 2, controlled Start:13-Feb-2016 Instruction Type:Patient Education How to access health informa tion online - Detail Indication:Diabetes mellitus type 2, controlled Start:13-Feb-2016 Instruction Type:Patient Education Patient Instructions Indication:Diabetes mellitus type 2, controlled Start:13-Feb-2016 Instruction Type:Provider Instructions for Treatment How to access health informa tion online Indication:Diabetes mellitus type 2, controlled Start:12-Nov-2015 Instruction Type:Patient Education How to access health informa tion online - Detail Indication:Diabetes mellitus type 2, controlled Start:12-Nov-2015 Instruction Type:Patient Education Patient Instructions Indication:Diabetes mellitus type 2, controlled Start:12-Nov-2015 Instruction Type:Provider Instructions for Treatment Patient Instructions Indication:COPD, moderate Start:17-Jul-2015 Instruction Type:Provider Instructions for Treatment How to access health informa tion online Indication:Diabetes mellitus type 2, uncontrolled, without complications Start:08-Jul-2015 Instruction Type:Patient Education How to access health informa tion online - Detail Indication:Diabetes mellitus type 2, uncontrolled, without complications Start:08-Jul-2015 Instruction Type:Patient Education Patient Instructions Indication:Diabetes mellitus type 2, uncontrolled, without complications Start:08-Jul-2015 Instruction Type:Provider Instructions for Treatment cardiovascular counseling Indication:Coronary artery disease, non-occlusive Start:19-Jun-2015 Instruction Type:Provider Instructions for Treatment How to access health informa tion online Indication:Annual Medicare Physical Start:19-Jun-2015 Instruction Type:Patient Education How to access health informa tion online - Detail Indication:Annual Medicare Physical Start:19-Jun-2015 Instruction Type:Patient Education Patient Instructions Indication:Annual Medicare Physical Start:19-Jun-2015 Instruction Type:Provider Instructions for Treatment How to access health informa tion online Indication:Diabetes mellitus type 2, controlled Start:10-Apr-2015 Instruction Type:Patient Education How to access health informa tion online - Detail Indication:Diabetes mellitus type 2, controlled Start:10-Apr-2015 Instruction Type:Patient Education Patient Instructions Indication:Diabetes mellitus type 2, controlled Start:10-Apr-2015 Instruction Type:Provider Instructions for Treatment Patient Instructions Indication:Diabetes mellitus type 2, controlled Start:09-Jan-2015 Instruction Type:Provider Instructions for Treatment Patient Instructions Indication:Coronary artery disease, non-occlusive Start:10-Oct-2014 Instruction Type:Provider Instructions for Treatment How to access health informa tion online Indication:Diabetes mellitus type 2, uncontrolled, without complications Start:05-Jul-2014 Instruction Type:Patient Education How to access health informa tion online - Detail Indication:Diabetes mellitus type 2, uncontrolled, without complications Start:05-Jul-2014 Instruction Type:Patient Education Patient Instructions Indication:Diabetes mellitus type 2, uncontrolled, without complications Start:05-Jul-2014 Instruction Type:Provider Instructions for Treatment cardiovascular counseling Indication:Coronary artery disease, non-occlusive Start:11-Jun-2014 Instruction Type:Provider Instructions for Treatment How to access health informa tion online Indication:Diabetes mellitus type 2, controlled Start:04-Apr-2014 Instruction Type:Patient Education How to access health informa tion online - Detail Indication:Diabetes mellitus type 2, controlled Start:04-Apr-2014 Instruction Type:Patient Education Patient Instructions Indication:Diabetes mellitus type 2, controlled Start:04-Apr-2014 Instruction Type:Provider Instructions for Treatment Patient Instructions Indication:Diabetes mellitus type 2, controlled Start:03-Jan-2014 Instruction Type:Provider Instructions for Treatment cardiovascular counseling Indication:Coronary artery disease, non-occlusive Start:20-Jun-2013 Instruction Type:Provider Instructions for Treatment Patient Instructions Indication:Diabetes mellitus type 2, controlled Start:20-Jun-2013 Instruction Type:Provider Instructions for Treatment Patient Instructions Indication:COPD, moderate Start:11-Oct-2012 Instruction Type:Provider Instructions for Treatment Patient Instructions Indication:Coronary artery disease, non-occlusive Start:07-Jul-2012 Instruction Type:Provider Instructions for Treatment Name Dates Details How to access health informa tion online Indication:Smoker Start:26-Jun-2020 Instruction Type:Patient Education How to access health informa tion online - Detail Indication:Smoker Start:26-Jun-2020 Instruction Type:Patient Education Patient Instructions Indication:Smoker Start:26-Jun-2020 Instruction Type:Provider Instructions for Treatment How to access health informa tion online Indication:BMI 26.0-26.9,adult Start:25-Feb-2020 Instruction Type:Patient Education How to access health informa tion online - Detail Indication:BMI 26.0-26.9,adult Start:25-Feb-2020 Instruction Type:Patient Education Patient Instructions Indication:BMI 26.0-26.9,adult Start:25-Feb-2020 Instruction Type:Provider Instructions for Treatment How to access health informa tion online Indication:Coronary artery disease, non-occlusive Start:29-Aug-2019 Instruction Type:Patient Education How to access health informa tion online - Detail Indication:Coronary artery disease, non-occlusive Start:29-Aug-2019 Instruction Type:Patient Education Patient Instructions Indication:Coronary artery disease, non-occlusive Start:29-Aug-2019 Instruction Type:Provider Instructions for Treatment cardiovascular counseling Indication:Coronary artery disease, non-occlusive Start:08-Aug-2019 Instruction Type:Provider Instructions for Treatment How to access health informa tion online Indication:Cigar smoker Start:08-Aug-2019 Instruction Type:Patient Education How to access health informa tion online - Detail Indication:Cigar smoker Start:08-Aug-2019 Instruction Type:Patient Education Patient Instructions Indication:Cigar smoker Start:08-Aug-2019 Instruction Type:Provider Instructions for Treatment cardiovascular counseling Indication:Coronary artery disease, non-occlusive Start:25-Jul-2018 Instruction Type:Provider Instructions for Treatment How to access health informa tion online Indication:BMI 27.0-27.9,adult Start:25-Jul-2018 Instruction Type:Patient Education How to access health informa tion online - Detail Indication:BMI 27.0-27.9,adult Start:25-Jul-2018 Instruction Type:Patient Education Patient Instructions Indication:BMI 27.0-27.9,adult Start:25-Jul-2018 Instruction Type:Provider Instructions for Treatment How to access health informa tion online Indication:Body mass index 26.0-26.9, adult Start:17-May-2018 Instruction Type:Patient Education How to access health informa tion online - Detail Indication:Body mass index 26.0-26.9, adult Start:17-May-2018 Instruction Type:Patient Education Patient Instructions Indication:Body mass index 26.0-26.9, adult Start:17-May-2018 Instruction Type:Provider Instructions for Treatment How to access health informa tion online Indication:Tobacco Use Start:05-Apr-2018 Instruction Type:Patient Education How to access health informa tion online - Detail Indication:Tobacco Use Start:05-Apr-2018 Instruction Type:Patient Education Patient Instructions Indication:Tobacco Use Start:05-Apr-2018 Instruction Type:Provider Instructions for Treatment How to access health informa tion online Indication:Body mass index 26.0-26.9, adult Start:14-Feb-2018 Instruction Type:Patient Education How to access health informa tion online - Detail Indication:Body mass index 26.0-26.9, adult Start:14-Feb-2018 Instruction Type:Patient Education Patient Instructions Indication:Body mass index 26.0-26.9, adult Start:14-Feb-2018 Instruction Type:Provider Instructions for Treatment How to access health informa tion online Indication:Diabetes mellitus type 2, uncontrolled, without complications Start:08-Nov-2017 Instruction Type:Patient Education How to access health informa tion online - Detail Indication:Diabetes mellitus type 2, uncontrolled, without complications Start:08-Nov-2017 Instruction Type:Patient Education Patient Instructions Indication:Diabetes mellitus type 2, uncontrolled, without complications Start:08-Nov-2017 Instruction Type:Provider Instructions for Treatment cardiovascular counseling Indication:Coronary artery disease, non-occlusive Start:27-Jun-2017 Instruction Type:Provider Instructions for Treatment How to access health informa tion online Indication:Tobacco Use Start:27-Jun-2017 Instruction Type:Patient Education How to access health informa tion online - Detail Indication:Tobacco Use Start:27-Jun-2017 Instruction Type:Patient Education Patient Instructions Indication:Tobacco Use Start:27-Jun-2017 Instruction Type:Provider Instructions for Treatment How to access health informa tion online Indication:Diabetes mellitus type 2, controlled Start:05-May-2017 Instruction Type:Patient Education How to access health informa tion online - Detail Indication:Diabetes mellitus type 2, controlled Start:05-May-2017 Instruction Type:Patient Education Patient Instructions Indication:Diabetes mellitus type 2, controlled Start:05-May-2017 Instruction Type:Provider Instructions for Treatment How to access health informa tion online Indication:Diabetes mellitus type 2, controlled Start:23-Dec-2016 Instruction Type:Patient Education How to access health informa tion online - Detail Indication:Diabetes mellitus type 2, controlled Start:23-Dec-2016 Instruction Type:Patient Education Patient Instructions Indication:Diabetes mellitus type 2, controlled Start:23-Dec-2016 Instruction Type:Provider Instructions for Treatment Patient Instructions Indication:Annual Medicare Physical Start:24-Jun-2016 Instruction Type:Provider Instructions for Treatment cardiovascular counseling Indication:Coronary artery disease, non-occlusive Start:24-Jun-2016 Instruction Type:Provider Instructions for Treatment How to access health informa tion online Indication:Diabetes mellitus type 2, controlled Start:17-Jun-2016 Instruction Type:Patient Education How to access health informa tion online - Detail Indication:Diabetes mellitus type 2, controlled Start:17-Jun-2016 Instruction Type:Patient Education Patient Instructions Indication:Diabetes mellitus type 2, controlled Start:17-Jun-2016 Instruction Type:Provider Instructions for Treatment How to access health informa tion online Indication:Diabetes mellitus type 2, controlled Start:13-Feb-2016 Instruction Type:Patient Education How to access health informa tion online - Detail Indication:Diabetes mellitus type 2, controlled Start:13-Feb-2016 Instruction Type:Patient Education Patient Instructions Indication:Diabetes mellitus type 2, controlled Start:13-Feb-2016 Instruction Type:Provider Instructions for Treatment How to access health informa tion online Indication:Diabetes mellitus type 2, controlled Start:12-Nov-2015 Instruction Type:Patient Education How to access health informa tion online - Detail Indication:Diabetes mellitus type 2, controlled Start:12-Nov-2015 Instruction Type:Patient Education Patient Instructions Indication:Diabetes mellitus type 2, controlled Start:12-Nov-2015 Instruction Type:Provider Instructions for Treatment Patient Instructions Indication:COPD, moderate Start:17-Jul-2015 Instruction Type:Provider Instructions for Treatment How to access health informa tion online Indication:Diabetes mellitus type 2, uncontrolled, without complications Start:08-Jul-2015 Instruction Type:Patient Education How to access health informa tion online - Detail Indication:Diabetes mellitus type 2, uncontrolled, without complications Start:08-Jul-2015 Instruction Type:Patient Education Patient Instructions Indication:Diabetes mellitus type 2, uncontrolled, without complications Start:08-Jul-2015 Instruction Type:Provider Instructions for Treatment cardiovascular counseling Indication:Coronary artery disease, non-occlusive Start:19-Jun-2015 Instruction Type:Provider Instructions for Treatment How to access health informa tion online Indication:Annual Medicare Physical Start:19-Jun-2015 Instruction Type:Patient Education How to access health informa tion online - Detail Indication:Annual Medicare Physical Start:19-Jun-2015 Instruction Type:Patient Education Patient Instructions Indication:Annual Medicare Physical Start:19-Jun-2015 Instruction Type:Provider Instructions for Treatment How to access health informa tion online Indication:Diabetes mellitus type 2, controlled Start:10-Apr-2015 Instruction Type:Patient Education How to access health informa tion online - Detail Indication:Diabetes mellitus type 2, controlled Start:10-Apr-2015 Instruction Type:Patient Education Patient Instructions Indication:Diabetes mellitus type 2, controlled Start:10-Apr-2015 Instruction Type:Provider Instructions for Treatment Patient Instructions Indication:Diabetes mellitus type 2, controlled Start:09-Jan-2015 Instruction Type:Provider Instructions for Treatment Patient Instructions Indication:Coronary artery disease, non-occlusive Start:10-Oct-2014 Instruction Type:Provider Instructions for Treatment How to access health informa tion online Indication:Diabetes mellitus type 2, uncontrolled, without complications Start:05-Jul-2014 Instruction Type:Patient Education How to access health informa tion online - Detail Indication:Diabetes mellitus type 2, uncontrolled, without complications Start:05-Jul-2014 Instruction Type:Patient Education Patient Instructions Indication:Diabetes mellitus type 2, uncontrolled, without complications Start:05-Jul-2014 Instruction Type:Provider Instructions for Treatment cardiovascular counseling Indication:Coronary artery disease, non-occlusive Start:11-Jun-2014 Instruction Type:Provider Instructions for Treatment How to access health informa tion online Indication:Diabetes mellitus type 2, controlled Start:04-Apr-2014 Instruction Type:Patient Education How to access health informa tion online - Detail Indication:Diabetes mellitus type 2, controlled Start:04-Apr-2014 Instruction Type:Patient Education Patient Instructions Indication:Diabetes mellitus type 2, controlled Start:04-Apr-2014 Instruction Type:Provider Instructions for Treatment Patient Instructions Indication:Diabetes mellitus type 2, controlled Start:03-Jan-2014 Instruction Type:Provider Instructions for Treatment cardiovascular counseling Indication:Coronary artery disease, non-occlusive Start:20-Jun-2013 Instruction Type:Provider Instructions for Treatment Patient Instructions Indication:Diabetes mellitus type 2, controlled Start:20-Jun-2013 Instruction Type:Provider Instructions for Treatment Patient Instructions Indication:COPD, moderate Start:11-Oct-2012 Instruction Type:Provider Instructions for Treatment Patient Instructions Indication:Coronary artery disease, non-occlusive Start:07-Jul-2012 Instruction Type:Provider Instructions for Treatment Name Dates Details How to access health informa tion online Indication:Smoker Start:26-Jun-2020 Instruction Type:Patient Education How to access health informa tion online - Detail Indication:Smoker Start:26-Jun-2020 Instruction Type:Patient Education Patient Instructions Indication:Smoker Start:26-Jun-2020 Instruction Type:Provider Instructions for Treatment How to access health informa tion online Indication:BMI 26.0-26.9,adult Start:25-Feb-2020 Instruction Type:Patient Education How to access health informa tion online - Detail Indication:BMI 26.0-26.9,adult Start:25-Feb-2020 Instruction Type:Patient Education Patient Instructions Indication:BMI 26.0-26.9,adult Start:25-Feb-2020 Instruction Type:Provider Instructions for Treatment How to access health informa tion online Indication:Coronary artery disease, non-occlusive Start:29-Aug-2019 Instruction Type:Patient Education How to access health informa tion online - Detail Indication:Coronary artery disease, non-occlusive Start:29-Aug-2019 Instruction Type:Patient Education Patient Instructions Indication:Coronary artery disease, non-occlusive Start:29-Aug-2019 Instruction Type:Provider Instructions for Treatment cardiovascular counseling Indication:Coronary artery disease, non-occlusive Start:08-Aug-2019 Instruction Type:Provider Instructions for Treatment How to access health informa tion online Indication:Cigar smoker Start:08-Aug-2019 Instruction Type:Patient Education How to access health informa tion online - Detail Indication:Cigar smoker Start:08-Aug-2019 Instruction Type:Patient Education Patient Instructions Indication:Cigar smoker Start:08-Aug-2019 Instruction Type:Provider Instructions for Treatment cardiovascular counseling Indication:Coronary artery disease, non-occlusive Start:25-Jul-2018 Instruction Type:Provider Instructions for Treatment How to access health informa tion online Indication:BMI 27.0-27.9,adult Start:25-Jul-2018 Instruction Type:Patient Education How to access health informa tion online - Detail Indication:BMI 27.0-27.9,adult Start:25-Jul-2018 Instruction Type:Patient Education Patient Instructions Indication:BMI 27.0-27.9,adult Start:25-Jul-2018 Instruction Type:Provider Instructions for Treatment How to access health informa tion online Indication:Body mass index 26.0-26.9, adult Start:17-May-2018 Instruction Type:Patient Education How to access health informa tion online - Detail Indication:Body mass index 26.0-26.9, adult Start:17-May-2018 Instruction Type:Patient Education Patient Instructions Indication:Body mass index 26.0-26.9, adult Start:17-May-2018 Instruction Type:Provider Instructions for Treatment How to access health informa tion online Indication:Tobacco Use Start:05-Apr-2018 Instruction Type:Patient Education How to access health informa tion online - Detail Indication:Tobacco Use Start:05-Apr-2018 Instruction Type:Patient Education Patient Instructions Indication:Tobacco Use Start:05-Apr-2018 Instruction Type:Provider Instructions for Treatment How to access health informa tion online Indication:Body mass index 26.0-26.9, adult Start:14-Feb-2018 Instruction Type:Patient Education How to access health informa tion online - Detail Indication:Body mass index 26.0-26.9, adult Start:14-Feb-2018 Instruction Type:Patient Education Patient Instructions Indication:Body mass index 26.0-26.9, adult Start:14-Feb-2018 Instruction Type:Provider Instructions for Treatment How to access health informa tion online Indication:Diabetes mellitus type 2, uncontrolled, without complications Start:08-Nov-2017 Instruction Type:Patient Education How to access health informa tion online - Detail Indication:Diabetes mellitus type 2, uncontrolled, without complications Start:08-Nov-2017 Instruction Type:Patient Education Patient Instructions Indication:Diabetes mellitus type 2, uncontrolled, without complications Start:08-Nov-2017 Instruction Type:Provider Instructions for Treatment cardiovascular counseling Indication:Coronary artery disease, non-occlusive Start:27-Jun-2017 Instruction Type:Provider Instructions for Treatment How to access health informa tion online Indication:Tobacco Use Start:27-Jun-2017 Instruction Type:Patient Education How to access health informa tion online - Detail Indication:Tobacco Use Start:27-Jun-2017 Instruction Type:Patient Education Patient Instructions Indication:Tobacco Use Start:27-Jun-2017 Instruction Type:Provider Instructions for Treatment How to access health informa tion online Indication:Diabetes mellitus type 2, controlled Start:05-May-2017 Instruction Type:Patient Education How to access health informa tion online - Detail Indication:Diabetes mellitus type 2, controlled Start:05-May-2017 Instruction Type:Patient Education Patient Instructions Indication:Diabetes mellitus type 2, controlled Start:05-May-2017 Instruction Type:Provider Instructions for Treatment How to access health informa tion online Indication:Diabetes mellitus type 2, controlled Start:23-Dec-2016 Instruction Type:Patient Education How to access health informa tion online - Detail Indication:Diabetes mellitus type 2, controlled Start:23-Dec-2016 Instruction Type:Patient Education Patient Instructions Indication:Diabetes mellitus type 2, controlled Start:23-Dec-2016 Instruction Type:Provider Instructions for Treatment Patient Instructions Indication:Annual Medicare Physical Start:24-Jun-2016 Instruction Type:Provider Instructions for Treatment cardiovascular counseling Indication:Coronary artery disease, non-occlusive Start:24-Jun-2016 Instruction Type:Provider Instructions for Treatment How to access health informa tion online Indication:Diabetes mellitus type 2, controlled Start:17-Jun-2016 Instruction Type:Patient Education How to access health informa tion online - Detail Indication:Diabetes mellitus type 2, controlled Start:17-Jun-2016 Instruction Type:Patient Education Patient Instructions Indication:Diabetes mellitus type 2, controlled Start:17-Jun-2016 Instruction Type:Provider Instructions for Treatment How to access health informa tion online Indication:Diabetes mellitus type 2, controlled Start:13-Feb-2016 Instruction Type:Patient Education How to access health informa tion online - Detail Indication:Diabetes mellitus type 2, controlled Start:13-Feb-2016 Instruction Type:Patient Education Patient Instructions Indication:Diabetes mellitus type 2, controlled Start:13-Feb-2016 Instruction Type:Provider Instructions for Treatment How to access health informa tion online Indication:Diabetes mellitus type 2, controlled Start:12-Nov-2015 Instruction Type:Patient Education How to access health informa tion online - Detail Indication:Diabetes mellitus type 2, controlled Start:12-Nov-2015 Instruction Type:Patient Education Patient Instructions Indication:Diabetes mellitus type 2, controlled Start:12-Nov-2015 Instruction Type:Provider Instructions for Treatment Patient Instructions Indication:COPD, moderate Start:17-Jul-2015 Instruction Type:Provider Instructions for Treatment How to access health informa tion online Indication:Diabetes mellitus type 2, uncontrolled, without complications Start:08-Jul-2015 Instruction Type:Patient Education How to access health informa tion online - Detail Indication:Diabetes mellitus type 2, uncontrolled, without complications Start:08-Jul-2015 Instruction Type:Patient Education Patient Instructions Indication:Diabetes mellitus type 2, uncontrolled, without complications Start:08-Jul-2015 Instruction Type:Provider Instructions for Treatment cardiovascular counseling Indication:Coronary artery disease, non-occlusive Start:19-Jun-2015 Instruction Type:Provider Instructions for Treatment How to access health informa tion online Indication:Annual Medicare Physical Start:19-Jun-2015 Instruction Type:Patient Education How to access health informa tion online - Detail Indication:Annual Medicare Physical Start:19-Jun-2015 Instruction Type:Patient Education Patient Instructions Indication:Annual Medicare Physical Start:19-Jun-2015 Instruction Type:Provider Instructions for Treatment How to access health informa tion online Indication:Diabetes mellitus type 2, controlled Start:10-Apr-2015 Instruction Type:Patient Education How to access health informa tion online - Detail Indication:Diabetes mellitus type 2, controlled Start:10-Apr-2015 Instruction Type:Patient Education Patient Instructions Indication:Diabetes mellitus type 2, controlled Start:10-Apr-2015 Instruction Type:Provider Instructions for Treatment Patient Instructions Indication:Diabetes mellitus type 2, controlled Start:09-Jan-2015 Instruction Type:Provider Instructions for Treatment Patient Instructions Indication:Coronary artery disease, non-occlusive Start:10-Oct-2014 Instruction Type:Provider Instructions for Treatment How to access health informa tion online Indication:Diabetes mellitus type 2, uncontrolled, without complications Start:05-Jul-2014 Instruction Type:Patient Education How to access health informa tion online - Detail Indication:Diabetes mellitus type 2, uncontrolled, without complications Start:05-Jul-2014 Instruction Type:Patient Education Patient Instructions Indication:Diabetes mellitus type 2, uncontrolled, without complications Start:05-Jul-2014 Instruction Type:Provider Instructions for Treatment cardiovascular counseling Indication:Coronary artery disease, non-occlusive Start:11-Jun-2014 Instruction Type:Provider Instructions for Treatment How to access health informa tion online Indication:Diabetes mellitus type 2, controlled Start:04-Apr-2014 Instruction Type:Patient Education How to access health informa tion online - Detail Indication:Diabetes mellitus type 2, controlled Start:04-Apr-2014 Instruction Type:Patient Education Patient Instructions Indication:Diabetes mellitus type 2, controlled Start:04-Apr-2014 Instruction Type:Provider Instructions for Treatment Patient Instructions Indication:Diabetes mellitus type 2, controlled Start:03-Jan-2014 Instruction Type:Provider Instructions for Treatment cardiovascular counseling Indication:Coronary artery disease, non-occlusive Start:20-Jun-2013 Instruction Type:Provider Instructions for Treatment Patient Instructions Indication:Diabetes mellitus type 2, controlled Start:20-Jun-2013 Instruction Type:Provider Instructions for Treatment Patient Instructions Indication:COPD, moderate Start:11-Oct-2012 Instruction Type:Provider Instructions for Treatment Patient Instructions Indication:Coronary artery disease, non-occlusive Start:07-Jul-2012 Instruction Type:Provider Instructions for Treatment Name Dates Details cardiovascular counseling Indication:Coronary artery disease, non-occlusive Start:11-Aug-2020 Instruction Type:Provider Instructions for Treatment How to access health informa tion online Indication:BMI 26.0-26.9,adult Start:11-Aug-2020 Instruction Type:Patient Education How to access health informa tion online - Detail Indication:BMI 26.0-26.9,adult Start:11-Aug-2020 Instruction Type:Patient Education Patient Instructions Indication:BMI 26.0-26.9,adult Start:11-Aug-2020 Instruction Type:Provider Instructions for Treatment How to access health informa tion online Indication:Smoker Start:26-Jun-2020 Instruction Type:Patient Education How to access health informa tion online - Detail Indication:Smoker Start:26-Jun-2020 Instruction Type:Patient Education Patient Instructions Indication:Smoker Start:26-Jun-2020 Instruction Type:Provider Instructions for Treatment How to access health informa tion online Indication:BMI 26.0-26.9,adult Start:25-Feb-2020 Instruction Type:Patient Education How to access health informa tion online - Detail Indication:BMI 26.0-26.9,adult Start:25-Feb-2020 Instruction Type:Patient Education Patient Instructions Indication:BMI 26.0-26.9,adult Start:25-Feb-2020 Instruction Type:Provider Instructions for Treatment How to access health informa tion online Indication:Coronary artery disease, non-occlusive Start:29-Aug-2019 Instruction Type:Patient Education How to access health informa tion online - Detail Indication:Coronary artery disease, non-occlusive Start:29-Aug-2019 Instruction Type:Patient Education Patient Instructions Indication:Coronary artery disease, non-occlusive Start:29-Aug-2019 Instruction Type:Provider Instructions for Treatment cardiovascular counseling Indication:Coronary artery disease, non-occlusive Start:08-Aug-2019 Instruction Type:Provider Instructions for Treatment How to access health informa tion online Indication:Cigar smoker Start:08-Aug-2019 Instruction Type:Patient Education How to access health informa tion online - Detail Indication:Cigar smoker Start:08-Aug-2019 Instruction Type:Patient Education Patient Instructions Indication:Cigar smoker Start:08-Aug-2019 Instruction Type:Provider Instructions for Treatment cardiovascular counseling Indication:Coronary artery disease, non-occlusive Start:25-Jul-2018 Instruction Type:Provider Instructions for Treatment How to access health informa tion online Indication:BMI 27.0-27.9,adult Start:25-Jul-2018 Instruction Type:Patient Education How to access health informa tion online - Detail Indication:BMI 27.0-27.9,adult Start:25-Jul-2018 Instruction Type:Patient Education Patient Instructions Indication:BMI 27.0-27.9,adult Start:25-Jul-2018 Instruction Type:Provider Instructions for Treatment How to access health informa tion online Indication:Body mass index 26.0-26.9, adult Start:17-May-2018 Instruction Type:Patient Education How to access health informa tion online - Detail Indication:Body mass index 26.0-26.9, adult Start:17-May-2018 Instruction Type:Patient Education Patient Instructions Indication:Body mass index 26.0-26.9, adult Start:17-May-2018 Instruction Type:Provider Instructions for Treatment How to access health informa tion online Indication:Tobacco Use Start:05-Apr-2018 Instruction Type:Patient Education How to access health informa tion online - Detail Indication:Tobacco Use Start:05-Apr-2018 Instruction Type:Patient Education Patient Instructions Indication:Tobacco Use Start:05-Apr-2018 Instruction Type:Provider Instructions for Treatment How to access health informa tion online Indication:Body mass index 26.0-26.9, adult Start:14-Feb-2018 Instruction Type:Patient Education How to access health informa tion online - Detail Indication:Body mass index 26.0-26.9, adult Start:14-Feb-2018 Instruction Type:Patient Education Patient Instructions Indication:Body mass index 26.0-26.9, adult Start:14-Feb-2018 Instruction Type:Provider Instructions for Treatment How to access health informa tion online Indication:Diabetes mellitus type 2, uncontrolled, without complications Start:08-Nov-2017 Instruction Type:Patient Education How to access health informa tion online - Detail Indication:Diabetes mellitus type 2, uncontrolled, without complications Start:08-Nov-2017 Instruction Type:Patient Education Patient Instructions Indication:Diabetes mellitus type 2, uncontrolled, without complications Start:08-Nov-2017 Instruction Type:Provider Instructions for Treatment cardiovascular counseling Indication:Coronary artery disease, non-occlusive Start:27-Jun-2017 Instruction Type:Provider Instructions for Treatment How to access health informa tion online Indication:Tobacco Use Start:27-Jun-2017 Instruction Type:Patient Education How to access health informa tion online - Detail Indication:Tobacco Use Start:27-Jun-2017 Instruction Type:Patient Education Patient Instructions Indication:Tobacco Use Start:27-Jun-2017 Instruction Type:Provider Instructions for Treatment How to access health informa tion online Indication:Diabetes mellitus type 2, controlled Start:05-May-2017 Instruction Type:Patient Education How to access health informa tion online - Detail Indication:Diabetes mellitus type 2, controlled Start:05-May-2017 Instruction Type:Patient Education Patient Instructions Indication:Diabetes mellitus type 2, controlled Start:05-May-2017 Instruction Type:Provider Instructions for Treatment How to access health informa tion online Indication:Diabetes mellitus type 2, controlled Start:23-Dec-2016 Instruction Type:Patient Education How to access health informa tion online - Detail Indication:Diabetes mellitus type 2, controlled Start:23-Dec-2016 Instruction Type:Patient Education Patient Instructions Indication:Diabetes mellitus type 2, controlled Start:23-Dec-2016 Instruction Type:Provider Instructions for Treatment Patient Instructions Indication:Annual Medicare Physical Start:24-Jun-2016 Instruction Type:Provider Instructions for Treatment cardiovascular counseling Indication:Coronary artery disease, non-occlusive Start:24-Jun-2016 Instruction Type:Provider Instructions for Treatment How to access health informa tion online Indication:Diabetes mellitus type 2, controlled Start:17-Jun-2016 Instruction Type:Patient Education How to access health informa tion online - Detail Indication:Diabetes mellitus type 2, controlled Start:17-Jun-2016 Instruction Type:Patient Education Patient Instructions Indication:Diabetes mellitus type 2, controlled Start:17-Jun-2016 Instruction Type:Provider Instructions for Treatment How to access health informa tion online Indication:Diabetes mellitus type 2, controlled Start:13-Feb-2016 Instruction Type:Patient Education How to access health informa tion online - Detail Indication:Diabetes mellitus type 2, controlled Start:13-Feb-2016 Instruction Type:Patient Education Patient Instructions Indication:Diabetes mellitus type 2, controlled Start:13-Feb-2016 Instruction Type:Provider Instructions for Treatment How to access health informa tion online Indication:Diabetes mellitus type 2, controlled Start:12-Nov-2015 Instruction Type:Patient Education How to access health informa tion online - Detail Indication:Diabetes mellitus type 2, controlled Start:12-Nov-2015 Instruction Type:Patient Education Patient Instructions Indication:Diabetes mellitus type 2, controlled Start:12-Nov-2015 Instruction Type:Provider Instructions for Treatment Patient Instructions Indication:COPD, moderate Start:17-Jul-2015 Instruction Type:Provider Instructions for Treatment How to access health informa tion online Indication:Diabetes mellitus type 2, uncontrolled, without complications Start:08-Jul-2015 Instruction Type:Patient Education How to access health informa tion online - Detail Indication:Diabetes mellitus type 2, uncontrolled, without complications Start:08-Jul-2015 Instruction Type:Patient Education Patient Instructions Indication:Diabetes mellitus type 2, uncontrolled, without complications Start:08-Jul-2015 Instruction Type:Provider Instructions for Treatment cardiovascular counseling Indication:Coronary artery disease, non-occlusive Start:19-Jun-2015 Instruction Type:Provider Instructions for Treatment How to access health informa tion online Indication:Annual Medicare Physical Start:19-Jun-2015 Instruction Type:Patient Education How to access health informa tion online - Detail Indication:Annual Medicare Physical Start:19-Jun-2015 Instruction Type:Patient Education Patient Instructions Indication:Annual Medicare Physical Start:19-Jun-2015 Instruction Type:Provider Instructions for Treatment How to access health informa tion online Indication:Diabetes mellitus type 2, controlled Start:10-Apr-2015 Instruction Type:Patient Education How to access health informa tion online - Detail Indication:Diabetes mellitus type 2, controlled Start:10-Apr-2015 Instruction Type:Patient Education Patient Instructions Indication:Diabetes mellitus type 2, controlled Start:10-Apr-2015 Instruction Type:Provider Instructions for Treatment Patient Instructions Indication:Diabetes mellitus type 2, controlled Start:09-Jan-2015 Instruction Type:Provider Instructions for Treatment Patient Instructions Indication:Coronary artery disease, non-occlusive Start:10-Oct-2014 Instruction Type:Provider Instructions for Treatment How to access health informa tion online Indication:Diabetes mellitus type 2, uncontrolled, without complications Start:05-Jul-2014 Instruction Type:Patient Education How to access health informa tion online - Detail Indication:Diabetes mellitus type 2, uncontrolled, without complications Start:05-Jul-2014 Instruction Type:Patient Education Patient Instructions Indication:Diabetes mellitus type 2, uncontrolled, without complications Start:05-Jul-2014 Instruction Type:Provider Instructions for Treatment cardiovascular counseling Indication:Coronary artery disease, non-occlusive Start:11-Jun-2014 Instruction Type:Provider Instructions for Treatment How to access health informa tion online Indication:Diabetes mellitus type 2, controlled Start:04-Apr-2014 Instruction Type:Patient Education How to access health informa tion online - Detail Indication:Diabetes mellitus type 2, controlled Start:04-Apr-2014 Instruction Type:Patient Education Patient Instructions Indication:Diabetes mellitus type 2, controlled Start:04-Apr-2014 Instruction Type:Provider Instructions for Treatment Patient Instructions Indication:Diabetes mellitus type 2, controlled Start:03-Jan-2014 Instruction Type:Provider Instructions for Treatment cardiovascular counseling Indication:Coronary artery disease, non-occlusive Start:20-Jun-2013 Instruction Type:Provider Instructions for Treatment Patient Instructions Indication:Diabetes mellitus type 2, controlled Start:20-Jun-2013 Instruction Type:Provider Instructions for Treatment Patient Instructions Indication:COPD, moderate Start:11-Oct-2012 Instruction Type:Provider Instructions for Treatment Patient Instructions Indication:Coronary artery disease, non-occlusive Start:07-Jul-2012 Instruction Type:Provider Instructions for Treatment Name Dates Details cardiovascular counseling Indication:Coronary artery disease, non-occlusive Start:25-Jul-2018 Instruction Type:Provider Instructions for Treatment How to access health informa tion online Indication:BMI 27.0-27.9,adult Start:25-Jul-2018 Instruction Type:Patient Education How to access health informa tion online - Detail Indication:BMI 27.0-27.9,adult Start:25-Jul-2018 Instruction Type:Patient Education Patient Instructions Indication:BMI 27.0-27.9,adult Start:25-Jul-2018 Instruction Type:Provider Instructions for Treatment How to access health informa tion online Indication:Body mass index 26.0-26.9, adult Start:17-May-2018 Instruction Type:Patient Education How to access health informa tion online - Detail Indication:Body mass index 26.0-26.9, adult Start:17-May-2018 Instruction Type:Patient Education Patient Instructions Indication:Body mass index 26.0-26.9, adult Start:17-May-2018 Instruction Type:Provider Instructions for Treatment How to access health informa tion online Indication:Tobacco Use Start:05-Apr-2018 Instruction Type:Patient Education How to access health informa tion online - Detail Indication:Tobacco Use Start:05-Apr-2018 Instruction Type:Patient Education Patient Instructions Indication:Tobacco Use Start:05-Apr-2018 Instruction Type:Provider Instructions for Treatment How to access health informa tion online Indication:Body mass index 26.0-26.9, adult Start:14-Feb-2018 Instruction Type:Patient Education How to access health informa tion online - Detail Indication:Body mass index 26.0-26.9, adult Start:14-Feb-2018 Instruction Type:Patient Education Patient Instructions Indication:Body mass index 26.0-26.9, adult Start:14-Feb-2018 Instruction Type:Provider Instructions for Treatment How to access health informa tion online Indication:Diabetes mellitus type 2, uncontrolled, without complications Start:08-Nov-2017 Instruction Type:Patient Education How to access health informa tion online - Detail Indication:Diabetes mellitus type 2, uncontrolled, without complications Start:08-Nov-2017 Instruction Type:Patient Education Patient Instructions Indication:Diabetes mellitus type 2, uncontrolled, without complications Start:08-Nov-2017 Instruction Type:Provider Instructions for Treatment cardiovascular counseling Indication:Coronary artery disease, non-occlusive Start:27-Jun-2017 Instruction Type:Provider Instructions for Treatment How to access health informa tion online Indication:Tobacco Use Start:27-Jun-2017 Instruction Type:Patient Education How to access health informa tion online - Detail Indication:Tobacco Use Start:27-Jun-2017 Instruction Type:Patient Education Patient Instructions Indication:Tobacco Use Start:27-Jun-2017 Instruction Type:Provider Instructions for Treatment How to access health informa tion online Indication:Diabetes mellitus type 2, controlled Start:05-May-2017 Instruction Type:Patient Education How to access health informa tion online - Detail Indication:Diabetes mellitus type 2, controlled Start:05-May-2017 Instruction Type:Patient Education Patient Instructions Indication:Diabetes mellitus type 2, controlled Start:05-May-2017 Instruction Type:Provider Instructions for Treatment How to access health informa tion online Indication:Diabetes mellitus type 2, controlled Start:23-Dec-2016 Instruction Type:Patient Education How to access health informa tion online - Detail Indication:Diabetes mellitus type 2, controlled Start:23-Dec-2016 Instruction Type:Patient Education Patient Instructions Indication:Diabetes mellitus type 2, controlled Start:23-Dec-2016 Instruction Type:Provider Instructions for Treatment Patient Instructions Indication:Annual Medicare Physical Start:24-Jun-2016 Instruction Type:Provider Instructions for Treatment cardiovascular counseling Indication:Coronary artery disease, non-occlusive Start:24-Jun-2016 Instruction Type:Provider Instructions for Treatment How to access health informa tion online Indication:Diabetes mellitus type 2, controlled Start:17-Jun-2016 Instruction Type:Patient Education How to access health informa tion online - Detail Indication:Diabetes mellitus type 2, controlled Start:17-Jun-2016 Instruction Type:Patient Education Patient Instructions Indication:Diabetes mellitus type 2, controlled Start:17-Jun-2016 Instruction Type:Provider Instructions for Treatment How to access health informa tion online Indication:Diabetes mellitus type 2, controlled Start:13-Feb-2016 Instruction Type:Patient Education How to access health informa tion online - Detail Indication:Diabetes mellitus type 2, controlled Start:13-Feb-2016 Instruction Type:Patient Education Patient Instructions Indication:Diabetes mellitus type 2, controlled Start:13-Feb-2016 Instruction Type:Provider Instructions for Treatment How to access health informa tion online Indication:Diabetes mellitus type 2, controlled Start:12-Nov-2015 Instruction Type:Patient Education How to access health informa tion online - Detail Indication:Diabetes mellitus type 2, controlled Start:12-Nov-2015 Instruction Type:Patient Education Patient Instructions Indication:Diabetes mellitus type 2, controlled Start:12-Nov-2015 Instruction Type:Provider Instructions for Treatment Patient Instructions Indication:COPD, moderate Start:17-Jul-2015 Instruction Type:Provider Instructions for Treatment How to access health informa tion online Indication:Diabetes mellitus type 2, uncontrolled, without complications Start:08-Jul-2015 Instruction Type:Patient Education How to access health informa tion online - Detail Indication:Diabetes mellitus type 2, uncontrolled, without complications Start:08-Jul-2015 Instruction Type:Patient Education Patient Instructions Indication:Diabetes mellitus type 2, uncontrolled, without complications Start:08-Jul-2015 Instruction Type:Provider Instructions for Treatment cardiovascular counseling Indication:Coronary artery disease, non-occlusive Start:19-Jun-2015 Instruction Type:Provider Instructions for Treatment How to access health informa tion online Indication:Annual Medicare Physical Start:19-Jun-2015 Instruction Type:Patient Education How to access health informa tion online - Detail Indication:Annual Medicare Physical Start:19-Jun-2015 Instruction Type:Patient Education Patient Instructions Indication:Annual Medicare Physical Start:19-Jun-2015 Instruction Type:Provider Instructions for Treatment How to access health informa tion online Indication:Diabetes mellitus type 2, controlled Start:10-Apr-2015 Instruction Type:Patient Education How to access health informa tion online - Detail Indication:Diabetes mellitus type 2, controlled Start:10-Apr-2015 Instruction Type:Patient Education Patient Instructions Indication:Diabetes mellitus type 2, controlled Start:10-Apr-2015 Instruction Type:Provider Instructions for Treatment Patient Instructions Indication:Diabetes mellitus type 2, controlled Start:09-Jan-2015 Instruction Type:Provider Instructions for Treatment Patient Instructions Indication:Coronary artery disease, non-occlusive Start:10-Oct-2014 Instruction Type:Provider Instructions for Treatment How to access health informa tion online Indication:Diabetes mellitus type 2, uncontrolled, without complications Start:05-Jul-2014 Instruction Type:Patient Education How to access health informa tion online - Detail Indication:Diabetes mellitus type 2, uncontrolled, without complications Start:05-Jul-2014 Instruction Type:Patient Education Patient Instructions Indication:Diabetes mellitus type 2, uncontrolled, without complications Start:05-Jul-2014 Instruction Type:Provider Instructions for Treatment cardiovascular counseling Indication:Coronary artery disease, non-occlusive Start:11-Jun-2014 Instruction Type:Provider Instructions for Treatment How to access health informa tion online Indication:Diabetes mellitus type 2, controlled Start:04-Apr-2014 Instruction Type:Patient Education How to access health informa tion online - Detail Indication:Diabetes mellitus type 2, controlled Start:04-Apr-2014 Instruction Type:Patient Education Patient Instructions Indication:Diabetes mellitus type 2, controlled Start:04-Apr-2014 Instruction Type:Provider Instructions for Treatment Patient Instructions Indication:Diabetes mellitus type 2, controlled Start:03-Jan-2014 Instruction Type:Provider Instructions for Treatment cardiovascular counseling Indication:Coronary artery disease, non-occlusive Start:20-Jun-2013 Instruction Type:Provider Instructions for Treatment Patient Instructions Indication:Diabetes mellitus type 2, controlled Start:20-Jun-2013 Instruction Type:Provider Instructions for Treatment Patient Instructions Indication:COPD, moderate Start:11-Oct-2012 Instruction Type:Provider Instructions for Treatment Patient Instructions Indication:Coronary artery disease, non-occlusive Start:07-Jul-2012 Instruction Type:Provider Instructions for Treatment Summary Purpose Advance Directives No Advanced Directives Records Found Advance Directive Response Recorded Date/ Time Living Will No February 20, 2014 9 :28pm Power of Customer Success Specialist No February 20, 2014 9:28pm Advance Directive Response Recorded Date/ Time Living Will No February 20, 2014 8 :28pm Power of Customer Success Specialist No February 20, 2014 8:28pm Chief Complaint and Reason for Visit Chief Complaint CAROTID STENOSIS, BI LAT Chief Complaint COPD COPD Chief Complaint COPD COPD CAD, STENOSIS Chief Complaint Admit Date SORE AREA AROUND ANUS May 29 1:08pm Additional Source Comments (unrecognized sect ion and content) No Status Records FoundNo Status Records FoundNo Status Records FoundNo Status Records Found INFORMATION SOURCE (unrecogn ized section and content) DATE CREATED AUTHOR 10/19/2019 [facility] DATE CREATED AUTHOR AUTHOR'S ORGANIZ ATION 12/01/2022 [facility] DATE CREATED AUTHOR AUTHOR'S ORGANIZ ATION 03/25/2024 [facility] DATE CREATED AUTHOR AUTHOR'S ORGANIZ ATION 05/31/[address] [facility] Goals (unrecognized section and content) Goals may be documented in a n alternate sectionGoals may be documented in an alternate sectionGoals may be documented in an alternate sectionGoals may be documented in an alternate section Care Teams (unrecognized sec tion and content) Team Status: Active Member Role Status Dates Dr. Isabelle Patiño DO Family Provider Active Dr. Isabelle Patiño DO Primary Care Provider Active Team Status: Active Member Role Status Dates Dr. Isabelle Patiño DO Primary Care Pr ovider, Referring Provider, Other Provider Active Dr. En Ahn MD Attending Provider Active Team Status: Active Member Role Status Dates Dr. Isabelle Patiño DO Primary Care Provider Active Dr. Bronson Mcgowan MD Attending Provider Active Team Status: Inactive Member Role Status Dates Dr. Isabelle Patiño DO Primary Care Pr ovider, Attending Provider, Referring Provider Active Medical Laboratory Technologist Relationship Specialty Start Date End Date Abraham Helm (Hist) [facility] [address] [place] [address] [id number] PCP - General 01/08/03 Team Status: Active Member Role/Relationship Status Dates Dr. Isabelle Patiño DO Primary Care Provider Active Team Status: Inactive Member Role/Relationship Status Dates Dr. Isabelle Patiño DO Primary Care Provider Active Start: May 29, 2025 End: May 29, 2025 Dr. Isabelle Patiño DO Referring Provider Active Start: May 29, 2025 End: May 29, 2025 EDILIA Francisco Attending Provider Active Star t: May 29, 2025 End: May 29, 2025 Source Comments (unrecognize d section and content) In the event this informatio n is protected by the Federal Confidentiality of Alcohol and Drug Abuse Patient Records regulations: The Federal rules restrict any use of the information to criminally investigate or prosecute any alcohol or drug abuse patient.[facility] FOR RECORDS PERTAINING TO PATIENTS WHO ARE OR HAVE BEEN ENROLLED IN A CHEMICAL DEPENDENCY/SUBSTANCEABUSE PROGRAM, SOME INFORMATION MAY BE OMITTED. This clinical summary was aggregated from multiple sources. Caution should be exercised in using it in the provision of clinical care. This summary normalizes information from multiple sources, and as a consequence, information in this document may materially change the coding, format and clinical context of patient data. In addition, data may be omitted in some cases. CLINICAL DECISIONS SHOULD BE BASED ON THE PRIMARY CLINICAL RECORDS. [facility]. provides no warranty or guarantee of the accuracy or completeness of information in this document.
--- NOTE | 2025-08-25 12:59 | EKG12_ITS ---
Test Reason : stemi post cath Blood Pressure : */* mmHG Vent. Rate : 75 BPM Atrial Rate : * BPM P-R Int : * ms QRS Dur : 74 ms QT Int : 354 ms P-R-T Axes : * 28 15 degrees QTcB Int : 395 ms Poor data quality, interpretation may be adversely affected Atrial fibrillation Nonspecific ST abnormality Abnormal ECG When compared with ECG of 25-Aug-2025 14:57, MANUAL COMPARISON REQUIRED DATA IS UNCONFIRMED Confirmed by Braxton Alarcon ([id number]), industrial editor JEN LEAL ([id number]) on 08/26/2025 8:57:39 AM Referred By: Alka Beckman Confirmed By: Braxton Alarcon
[2025-08-25 13:00] LABS: Prothrombin Time (Protime)PT. 16.2 SECONDS (11.7-14.9)
[2025-08-25 13:01] LABS: Partial Thromboplast Time 31.4 Seconds (24.1-36.2)
--- OUTSIDE RECORDS SUMMARY | 2025-08-25 13:13 | XMS RPT_ITS | CCD ---
Author Organization [facility] Care Team Providers Care Bindery Machine Feeder Offbearer Name Role Phone Isabelle Patiño Unavailable SHANIA Israel Unavailable Unavailable Messenger, Richelle Unavailable Unavailable Unavailable Unavailable Gravius, Yen Unavailable Unavailable Isabelle Patiño Unavailable Gravius, Yen Unavailable Unavailable Messenger, Richelle Unavailable Unavailable Unavailable Unavailable Unavailable Unavailable Gravius, Yen Unavailable Unavailable SHAYLA, [facility] Admitting Unavaila ble SHAYLA, [facility] Attending Unavaila ble SHAYLA, [facility] Primary Care Unavaila ble James, Candie Unavailable Unavailable Messenger, Richelle Unavailable Unavailable Hollie Lyles Unavailable Unavailable Unavailable Unavailable Isabelle Patiño DO Unavailable Gravius TISSUE RECOVERY TECHNICIAN, Yen Unavailable Unavailable Cross SHILO Hollie Unavailable Unavailable Messenger Richelle BURK Unavailable Unavailable James VP OF GLOBAL MARKETING, Candie Unavailable Unavailable Unavailable Unavailable Jerman SHAPER AND PRESSER, Elly Unavailable Ugo Dudley LPN Unavailable Unavailable Isabelle Patiño DO Unavailable Emily Onofre MA Unavailable Unavailable Unavailable Unavailable Dr. Isabelle Patiño Primary Care Provider [phone] Dr. Isabelle Patiño Referring Provider Dr. Isabelle Patiño Other Provider Dr. En Ahn Attending Provider Adolfo WYNN, Kayela Unavailable Unavailable Dr. Isabelle Patiño Primary Care Provider Dr. Isabelle Patiño Referring Provider Dr. Isabelle Patiño Other Provider Dr. En Ahn Attending Provider Dr. Bronson Mcgowan Attending Provider Kaylyn DO, Isabelle Attending Unavailable Kaylyn DO, Isabelle Referring Unavailable Kaylyn DO, Isabelle Consulting Unavailable Troy VP OF GLOBAL MARKETING, Jefferson Unavailable Unavailable Jhonatan VP OF GLOBAL MARKETING, SHANIA Unavailable Unavailable Ekaterina Doyle MD Unavailable Abdirahman Sosa Unavailable Abraham Helm ([facility] [[email or web address] Primary Care Provider Kaylyn BULLARD, Dr. Walton Primary Care Provider Dr. Isabelle Patiño DO Referring Provider Ray HAND SPINNER-C, Pawel Attending Provider Kaylyn, Isabelle Primary Care [...] Allergy to substance (finding) [facility]; [facility] Work Phone: NEGATED: Highlighted row has been ruled out! (1 source) Allergy to drug (finding) [facility]; [facility] Work Phone: NEGATED: Highlighted row has been ruled out! (1 source) Allergy to substance (finding) [facility]; [facility] Work Phone: NEGATED: Highlighted row has been ruled out! (1 source) Allergy to drug (finding) [facility]; [facility] Work Phone: NEGATED: Highlighted row has been ruled out! (1 source) Allergy to substance (finding) [facility]; [facility] Work Phone: NEGATED: Highlighted row has been ruled out! (1 source) Allergy to drug (finding) [facility]; [facility] Work Phone: NEGATED: Highlighted row has been ruled out! (1 source) Allergy to substance (finding) [facility]; [facility] Work Phone: NEGATED: Highlighted row has been ruled out! (1 source) Allergy to drug (finding) [facility]; [facility] Work Phone: NEGATED: Highlighted row has been ruled out! (1 source) Allergy to substance (finding) 4 [facility]; [facility] Work Phone: NEGATED: Highlighted row has been ruled out! (1 source) Allergy to drug (finding) [facility]; [facility] Work Phone: NEGATED: Highlighted row has been ruled out! (1 source) Allergy to substance (finding) [facility]; [facility] Work Phone: NEGATED: Highlighted row has been ruled out! (1 source) Allergy to drug (finding) [facility]; [facility] Work Phone: NEGATED: Highlighted row has been ruled out! (1 source) Allergy to substance (finding) [facility]; [facility] Work Phone: NEGATED: Highlighted row has been ruled out! (1 source) Allergy to drug (finding) [facility]; [facility] Work Phone: NEGATED: Highlighted row has been ruled out! (1 source) Allergy to substance (finding) [facility]; [facility] Work Phone: NEGATED: Highlighted row has been ruled out! (1 source) Allergy to drug (finding) [facility]; [facility] Work Phone: NEGATED: Highlighted row has been ruled out! (1 source) Allergy to substance (finding) [facility]; [facility] Work Phone: NEGATED: Highlighted row has been ruled out! (1 source) Allergy to drug (finding) [facility]; [facility] Work Phone: NEGATED: Highlighted row has been ruled out! (1 source) Allergy to substance (finding) [facility]; [facility] Work Phone: NEGATED: Highlighted row has been ruled out! (1 source) Allergy to drug (finding) [facility]; [facility] Work Phone: NEGATED: Highlighted row has been ruled out! (1 source) Allergy to substance (finding) [facility]; [facility] Work Phone: NEGATED: Highlighted row has been ruled out! (1 source) Allergy to drug (finding) [facility]; [facility] Work Phone: NEGATED: Highlighted row has been ruled out! (1 source) Allergy to substance (finding) [facility]; [facility] Work Phone: NEGATED: Highlighted row has been ruled out! (1 source) Allergy to drug (finding) [facility]; [facility] Work Phone: NEGATED: Highlighted row has been ruled out! (1 source) Allergy to substance (finding) [facility]; [facility] Work Phone: NEGATED: Highlighted row has been ruled out! (1 source) Allergy to drug (finding) [facility]; [facility] Work Phone: NEGATED: Highlighted row has been ruled out! (1 source) Allergy to substance (finding) [facility]; [facility] Work Phone: NEGATED: Highlighted row has been ruled out! (1 source) Allergy to drug (finding) [facility]; [facility] Work Phone: NEGATED: Highlighted row has been ruled out! (1 source) Allergy to substance (finding) [facility]; [facility] Work Phone: NEGATED: Highlighted row has been ruled out! (1 source) Allergy to drug (finding) [facility]; [facility] Work Phone: NEGATED: Highlighted row has been ruled out! (1 source) Allergy to substance (finding) [facility]; [facility] Work Phone: NEGATED: Highlighted row has been ruled out! (1 source) Allergy to drug (finding) [facility]; [facility] Work Phone: NEGATED: Highlighted row has been ruled out! (1 source) Allergy to substance (finding) [facility]; [facility] Work Phone: NEGATED: Highlighted row has been ruled out! (1 source) Allergy to drug (finding) [facility]; [facility] Work Phone: NEGATED: Highlighted row has been ruled out! (1 source) Allergy to substance (finding) 4 [facility]; [facility] Work Phone: NEGATED: Highlighted row has been ruled out! (1 source) Allergy to drug (finding) [facility]; [facility] Work Phone: NEGATED: Highlighted row has been ruled out! (1 source) Allergy to substance (finding) [facility]; [facility] Work Phone: NEGATED: Highlighted row has been ruled out! (1 source) Allergy to drug (finding) [facility]; [facility] Work Phone: NEGATED: Highlighted row has been ruled out! (1 source) Allergy to substance (finding) [facility]; [facility] Work Phone: NEGATED: Highlighted row has been ruled out! (1 source) Allergy to drug (finding) [facility]; [facility] Work Phone: NEGATED: Highlighted row has been ruled out! (1 source) Allergy to substance (finding) [facility]; [facility] Work Phone: NEGATED: Highlighted row has been ruled out! (1 source) Allergy to drug (finding) [facility]; [facility] Work Phone: NEGATED: Highlighted row has been ruled out! (1 source) Allergy to substance (finding) 4 [facility]; [facility] Work Phone: NEGATED: Highlighted row has been ruled out! (1 source) Allergy to drug (finding) [facility]; [facility] Work Phone: NEGATED: Highlighted row has been ruled out! (1 source) Allergy to substance (finding) [facility]; [facility] Work Phone: NEGATED: Highlighted row has been ruled out! (1 source) Allergy to drug (finding) [facility]; [facility] Work Phone: NEGATED: Highlighted row has been ruled out! (1 source) Allergy to substance (finding) [facility]; [facility] Work Phone: NEGATED: Highlighted row has been ruled out! (1 source) Allergy to drug (finding) [facility]; [facility] Work Phone: NEGATED: Highlighted row has been ruled out! (1 source) Allergy to substance (finding) [facility]; [facility] Work Phone: NEGATED: Highlighted row has been ruled out! (1 source) Allergy to drug (finding) [facility]; [facility] Work Phone: NEGATED: Highlighted row has been ruled out! (1 source) Allergy to substance (finding) [facility]; [facility] Work Phone: NEGATED: Highlighted row [...] Allergy to substance (finding) [facility]; [facility] Work Phone: NEGATED: Highlighted row [...] Drug Class(es) Dates Sig (Normalized) Sig (Original) [id number] actuat albuterol 0.09 mg/actuat metered dose [...] as needed. amoxicillin 875 mg / clavula indio 125 mg oral tablet (20 sources) Penicillin-class [...] 14-Feb-2018 Inactive Start: 02-20-2014 End: 03-04-2020 Tiotropium [place] 1 PUFF in haler Discontinued 1 NMA INHALATION DAILY February 20, 2014 12:00am March 04, 2020 9:48am Start: 02-20-2014 End: 03-04-2020 take 1 puff(s) by inhalation once daily Tiotropium [place] Discontinued 1 PUFF INHALATION DAILY February 19, [...] stable-marry nue present regimen Dr Burgos-- at [facility] 06/16/2012 PCI of os tial LAD with MELINDA and cutting balloon arthrectomy to mid LAD. [facility]. Dr. Burgos. Coronary atherosclerosis and other heart disease (8 sources) Stented coronary artery; Translations: [Presence of coronary angioplasty implant and graft] Onset: 2 03-10-2021 Episodic Comment on above: 06/16/2012 PCI of os tial LAD with MELINDA and cutting balloon arthrectomy to mid LAD. [facility]. Dr. Burgos. Diabetes mellitus with complications (20 [...] Reporton 0 05-29-2025 Urgent Care Visit Report [facility] [address], [address] [place], [place] [id number] OFFICE VISIT Date of Service: 05/29/25 MR#: [id number] Acct: [id number] Name: SKYLER SANTOS Rep #: [id number] : 1935 Provider: EDILIA Bell Age/Sex: 89/M Location: [facility] Status: Signed Intake Vital Signs 01/10/25 10:20 [...] AREA AROUND ANUS Chief Complaint: possible hemorrhoid Freight Loader Required: No Is patient in pain?: No [...] Non-rheumatic mitral regurgitation Atherosclerotic heart disease of [place] coronary artery without angina pectoris Presence of stent in coronary artery ( 06/16/12) History of kidney stones COPD (chronic obstructive pulmonary disease) Diverticulosis Type 2 diabetes mellitus without complication History of prostate cancer Carotid stenosis Mitral regurgitation HLD (hyperlipidemia) Coronary artery disease involving [place] coronary artery Surgical History Presence of coronary [...] cereals such as all bran buds or lcsm-upb-[id number] fiber supplements. Apparently patient does enjoy eating [...] Walkerigner Signature: Date (if applicable) CC: Normal [facility] Cardiology Visit Reporton Cardiology Visit Report [facility] [address] [place], [place] [address] OFFICE VISIT Date of Service: 01/10/25 MR#: [id number] Acct: [id number] Name: SKYLER SANTOS Rep #: [id number] : 1935 Provider: Dr. Heather baeza MD Age/Sex: 89/M Location: [facility] Status: Signed HPI HPI History of Present Illness Details: 03/05/19: 89-year-old male with past medical history of coronary artery disease status post anterior ST elevation [place] in May 2012 treated with drug-eluting stent [...] be in an irregular rhythm by his electric wirer. He is getting a CPAP for sleep [...] 98 Intake Visit Reasons: 6 M FU Freight Loader Required: No Is patient in pain?: No [...] PFSH Medical History Atherosclerotic heart disease of [place] coronary artery without angina pectoris Carotid stenosis COPD (chronic obstructive pulmonary disease) Coronary artery disease involving [place] coronary artery Diverticulosis History of kidney stones [...] : Negat (more content not included)... Normal [facility] Carotid Duplex Ultrasoundon 11-09-2024 Carotid Duplex Ultrasound [facility] [address] [place] [address] Carotid Duplex Ultrasound 11/09/24 1505 MR#: [id number] Acct: [id number] Name: SKYLER SANTOS Rep #: [id number] : 1935 89 From: Bronson Mcgowan MD [...] the left vertebral artery. Procedure Carotid Duplex 37443. This is a Carotid Duplex examination using [...] Date Dictated: 11/09/24 1505 Date Transcribed: 11/12/24 1052 Hospice Executive Director: Signed Normal [facility] Cardiology Visit Reporton Cardiology Visit Report [facility] [address] [place] [address] OFFICE VISIT Date of Service: 09/11/24 MR#: [id number] Acct: [id number] Name: SKYLER SANTOS Rep #: [id number] : 1935 Provider: Dr. Heather baeza MD Age/Sex: 89/M Location: [facility] Status: Signed HPI HPI History of Present Illness Details: 03/05/19: 89-year-old male with past medical history of coronary artery disease status post anterior ST elevation [place] in May 2012 treated with drug-eluting stent [...] be in an irregular rhythm by his electric wirer. He is getting a CPAP for sleep [...] 97 Intake Visit Reasons: 6 M FU Freight Loader Required: No Is patient in pain?: No [...] PFSH Medical History Atherosclerotic heart disease of [place] coronary artery without angina pectoris Carotid stenosis COPD (chronic obstructive pulmonary disease) Coronary artery disease involving [place] coronary artery Diverticulosis History of kidney stones [...] problems (Occasion (more content not included)... Normal [facility] Low Dose CT Lung Screeningon 07-26-[address] Lung Screening [facility] Imaging Services [address] [place] [id number] Lung Screening MR#: [id number] Acct: [id number] Name: SKYLER SANTOS Rep #: [id number] : 1935 89 From: Antony vázquez MD PCP: Dr. Isabelle Patiño, Status: REG CLI Study: Low Dose CT Lung Screening Date of Exam: 07/26 Exam# [id number] Ordering Dr: Isabelle Patiño DO [id number] STUDY: LOW DOSE CT LUNG CANCER SCREENING [...] EDT , CC: Dr. Isabelle Patiño DO Hospice Executive Director: [facility] Telephone (FAMPWS) ----- DANIELLESKYLER ([id number]) 1935 M Date Time Provider Department 03/12/24 ZEYAD FERNANDEZ During your visit today, we recorded the following information about you: Zeyad Fernandez DO 03/12/2024 1:56 PM Signed Okay for Skyler to establish care with me if interested. Zeyad Fernandez DO Allergies As of Date: 03/12/2024 (No Known Allergies) Date Reviewed: 07/10/2021 Reviewed by: Anais Mckenzie (Card Seller) - Fully Assessed Prescriptions as of 03/23/2024 [...] Status:Closed by RENNY HERNANDES on 03/23/24 Normal [facility] Blood Glucose , Office ([phone])Ordered By: Isabelle Patiño on 06-03-2023 Glucose Glucometer (dC) [Moles/Vol] 133 1 Normal [facility]; [facility] Work Phone: CBC W/AUTO DIFF WBC ([id number])O rdered By: Piggery Worker on 06-03-2023 Basophils (Bld) [#/Vol] 0.0 10*3/uL [...] MCHC (RBC) [Mass/Vol] 33.3 g/dL Normal 31.5-35.7 [facility] prehensive [facility]; [facility] Work Phone: MCV (RBC) [Entitic vol] 91 fL Normal 79-97 [facility]; [facility] Work Phone: Monocytes (Bld) [#/Vol] 0.4 10*3/uL Normal 0.1-0.9 [facility]; [facility] Work Phone: Monocytes/100 WBC (Bld) 6 % Normal [facility]; [facility] Work Phone: Neutrophils (Bld) [#/Vol] 5.2 10*3/uL Normal 1.4-7.0 [facility]; [facility] Work Phone: Neutrophils/100 WBC (Bld) 72 % Normal [facility]; [facility] Work Phone: Platelets (Bld) [#/Vol] 204 10*3/uL Normal 150-450 [facility]; [facility] Work Phone: RBC (Bld) [#/Vol] 4.11 10*6/uL Abnormal 4.14-5.80 [facility]; [facility] Work Phone: WBC (Bld) [#/Vol] 7.2 10*3/uL Normal 3.4-10.8 [facility]; [facility] Work Phone: HgA1C , Office ([id number])Ordere d By: Isabelle Patiño on 06-03-2023 HbA1c (Bld) [Mass fraction] 6.5 % Normal 4.6 - 7.1 [facility]; [facility] Work Phone: LIPID PANEL ([id number])Ordered B y: Piggery Worker on 06-03-2023 Cholesterol [Mass/Vol] 96 mg/dL Abnormal 100-199 [facility]; [facility] Work Phone: Cholesterol in HDL [Mass/Vol] 34 mg/dL Abnormal [facility]; [facility] Work Phone: Triglyceride [Mass/Vol] 62 mg/dL Normal 0-149 [facility]; [facility] Work Phone: LIPID PANEL ([id number]) 14 mg/dL Normal 5-40 [facility]; [facility] Work Phone: LIPID PANEL ([id number]) 48 mg/dL Normal 0-99 [facility]; [facility] Work Phone: LIPID PANEL ([id number]) 1.4 {ratio} Normal 0.0-3.6 [facility]; [facility] Work Phone: METABOLIC PANEL, COMPREHENSI VE ([id number])Ordered By: Piggery Worker on 06-03-2023 Albumin [Mass/Vol] 4.1 g/dL Normal 3.7-4.7 [facility]; [facility] Work Phone: Albumin/Globulin [Mass ratio] 1.8 {ratio} Normal 1.2-2.2 [facility]; [facility] Work Phone: ALP [Catalytic activity/Vol] 138 U/L Abnormal 44-121 [facility]; [facility] Work Phone: ALT [Catalytic activity/Vol] 14 U/L Normal 0-44 [facility]; [facility] Work Phone: AST [Catalytic activity/Vol] 20 U/L Normal 0-40 [facility]; [facility] Work Phone: Bilirubin [Mass/Vol] 1.5 mg/dL Abnormal 0.0-1.2 [facility]; [facility] Work Phone: Calcium [Mass/Vol] 9.3 mg/dL Normal 8.6-10.2 [facility]; [facility] Work Phone: Chloride [Moles/Vol] 107 mmol/L Abnormal 96-106 [facility]; [facility] Work Phone: CO2 [Moles/Vol] 21 mmol/L Normal 20-29 [facility]; [facility] Work Phone: Creatinine [Mass/Vol] 1.02 mg/dL Normal 0.76-1.27 [facility] Internal [facility]; [facility] Work Phone: Globulin (S) [Mass/Vol] 2.3 g/dL Normal 1.5-4.5 [facility]; [facility] Work Phone: Glucose [Mass/Vol] 107 mg/dL Abnormal 70-99 [facility]; [facility] Work Phone: Potassium [Moles/Vol] 4.3 mmol/L Normal 3.5-5.2 [facility]; [facility] Work Phone: Protein [Mass/Vol] 6.4 g/dL Normal 6.0-8.5 [facility]; [facility] Work Phone: Sodium [Moles/Vol] 142 mmol/L Normal 134-144 [facility]; [facility] Work Phone: Urea nitrogen [Mass/Vol] 21 mg/dL Normal 8-27 [facility]; [facility] Work Phone: Urea nitrogen/Creatinine [Mass ratio] 21 mg/mg Normal 10-24 [facility]; [facility] Work Phone: METABOLIC PANEL, COMPREHENSIVE ([id number]) 72 mL/min/1.73 Normal Com[facility]; [facility] Work Phone: MICROALBUMINOrdered By: Syst em Wharf Operator on 06-03-2023 Albumin DL <= 20 mg/L (U) [Mass/Vol] 38.6 ug/mL Normal [facility]; [facility] Work Phone: Albumin/Creatinine (U) [Mass ratio] 17 {mg/g_creat} Normal 0-29 [facility]; [facility] Work Phone: Creatinine (U) [Mass/Vol] 220.9 mg/dL Normal [facility]; [facility] Work Phone: PSA (Medicare - 103) ([phone])Ordered By: Piggery Worker on 06-03-2023 Prostate specific Ag [Mass/Vol] 0.2 ng/mL Normal 0.0-4.0 [facility]; [facility] Work Phone: TSH ([phone])Ordered By: Arise m Wharf Operator on 06-03-2023 TSH Qn 1.310 {uIU/mL} Normal 0.450-4.50 0 [facility]; [facility] Work Phone: URINALYSIS, W/ MICRO ([phone]) Ordered By: Piggery Worker on 06-03-2023 Appearance (U) Clear Normal Comprehens [...] Ql (U) Trace Abnormal Comprehens [facility]; [facility] [...] (U) Negative Normal Comprehens [facility]; [facility] Work Phone: pH (U) 5.5 [...] Internal Medicine Work Phone: HgA1C , Office ([phone])on HbA1c (Bld) [Mass fraction] 6.3 % Normal 4.6 - 7.1 [facility]; [facility] Work Phone: Blood Glucose , Office ([phone])Ordered By: Jas Mata on 11-29-2022 Glucose Glucometer (BldC) [Moles/Vol] 125 1 Normal [facility]; [facility] Work Phone: HgA1C , Office ([phone])Ordere d By: Bertinsalud Aodlfo on 11-29-2022 HbA1c (Bld) [Mass fraction] 6.5 % Normal 4.6 - 7.1 [facility]; [facility] Work Phone: CBC W/AUTO DIFF WBC ([phone])O rdered By: Piggery Worker on 07-06-2022 Basophils (Bld) [#/Vol] 0.0 10*3/uL [...] MCHC (RBC) [Mass/Vol] 33.7 g/dL Normal 31.5-35.7 [facility] prehensive Internal Medicine; [facility] [...] [#/Vol] 3.99 10*6/uL Abnormal 4.14-5.[address] [facility] ehensive Internal Medicine; [facility] Work Phone: WBC (Bld) [#/Vol] 6.0 10*3/uL Normal 3.4-10.8 [facility]; [facility] Work Phone: LIPID PANEL ([phone])Ordered B y: Piggery Worker on 07-06-2022 Cholesterol [Mass/Vol] 100 mg/dL Normal 100-199 [facility]; [facility] Work Phone: Cholesterol in HDL [Mass/Vol] 40 mg/dL Normal [facility]; [facility] Work Phone: Triglyceride [Mass/Vol] 42 mg/dL Normal 0-149 [facility]; [facility] Work Phone: LIPID PANEL ([phone]) 11 mg/dL Normal 5-40 [facility] Internal Medicine; [facility] Work Phone: LIPID PANEL ([phone]) 49 mg/dL Normal 0-99 [facility] Medicine; [facility] Work Phone: LIPID PANEL ([phone]) 1.2 {ratio} Normal 0.0-3.6 [facility] Internal Medicine; [facility] Work Phone: METABOLIC PANEL, COMPREHENSI VE ([phone])Ordered By: Piggery Worker on 07-06-2022 Albumin [Mass/Vol] 4.2 g/dL Normal 3.6-4.6 [facility] Internal Medicine; [facility] Work Phone: Albumin/Globulin [Mass ratio] 2.2 {ratio} Normal 1.2-2.2 [facility]; [facility] Work Phone: ALP [Catalytic activity/Vol] 112 U/L Normal 44-121 [facility]; [facility] Work Phone: ALT [Catalytic activity/Vol] 17 U/L Normal 0-44 [facility]; [facility] Work Phone: AST [Catalytic activity/Vol] 21 U/L Normal 0-40 [facility]; [facility] Work Phone: Bilirubin [Mass/Vol] 1.3 mg/dL Abnormal 0.0-1.2 [facility] Internal Medicine; [facility] Work Phone: Calcium [Mass/Vol] 9.0 mg/dL Normal 8.6-10.2 [facility] Internal Medicine; [facility] Work Phone: Chloride [Moles/Vol] 108 mmol/L Abnormal 96-106 [facility] Internal Medicine; [facility] Work Phone: CO2 [Moles/Vol] 25 mmol/L Normal 20-29 [facility] Internal Medicine; [facility] Work Phone: Creatinine [Mass/Vol] 0.91 mg/dL Normal 0.76-1.27 Com prehensive Internal Medicine; [facility] Work Phone: Globulin (S) [Mass/Vol] 1.9 g/dL Normal 1.5-4.5 [facility]; [facility] Work Phone: Glucose [Mass/Vol] 96 mg/dL Normal 70-99 [facility] Internal Medicine; [facility] Work Phone: Potassium [Moles/Vol] 4.5 mmol/L Normal 3.5-5.2 [facility] prehensive Internal Medicine; [facility] Work Phone: Protein [Mass/Vol] 6.1 g/dL Normal 6.0-8.5 [facility] Internal Medicine; [facility] Work Phone: Sodium [Moles/Vol] 144 mmol/L Normal 134-144 [facility] Internal Medicine; [facility] Work Phone: Urea nitrogen [Mass/Vol] 15 mg/dL Normal 8-27 [facility]; [facility] Work Phone: Urea nitrogen/Creatinine [Mass ratio] 16 mg/mg Normal 10-24 [facility]; [facility] Work Phone: METABOLIC PANEL, COMPREHENSIVE ([phone]) 83 mL/min/1.73 Normal Comprehens [facility] Internal Medicine; [facility] Work Phone: MICROALBUMINOrdered By: Syst em Wharf Operator on 07-06-2022 Albumin DL <= 20 mg/L (U) [Mass/Vol] 25.0 ug/mL Normal [facility]; [facility] Work Phone: Albumin/Creatinine (U) [Mass ratio] 18 {mg/g_creat} Normal 0-29 [facility]; [facility] Work Phone: Creatinine (U) [Mass/Vol] 135.7 mg/dL Normal [facility]; [facility] Work Phone: TSH ([phone])Ordered By: Syste m Wharf Operator on 07-06-2022 TSH Qn 1.980 {uIU/mL} Normal 0.450-4.50 0 [facility]; [facility] Work Phone: URINALYSIS, W/ MICRO ([phone]) Ordered By: Piggery Worker on 07-06-2022 Appearance (U) Clear Normal Comprehens [...] (U) Negative Normal Compreh ensive Internal Medicine; [facility] Work Phone: Ketones Ql (U) [...] Medicine Work Phone: VITAMIN B-12 (CYANOCOBALAMIN ) ([phone])Ordered By: Piggery Worker on 07-06-2022 Cobalamin (Vitamin B12) [Mass/Vol] 461 pg/mL Normal 232-1245 [facility]; [facility] Work Phone: Blood Glucose , Office ([phone])Ordered By: Isabelle Patiño on 06-07-2022 Glucose Glucometer (BldC) [Moles/Vol] 107 1 Normal [facility]; [facility] Work Phone: HgA1C , Office ([phone])Ordere d By: Isabelle Patiño on 06-07-2022 HbA1c (Bld) [Mass fraction] 6.1 % Normal 4.6 - 7.1 [facility]; [facility] Work Phone: Blood Glucose , Office ([phone])Ordered By: Candie Ramirez on 01-21-2022 Glucose Glucometer (BldC) [Moles/Vol] 96 1 Normal [facility]; [facility] Work Phone: HgA1C , Office ([phone])Ordere d By: Emily Onofre on 01-21-2022 HbA1c (Bld) [Mass fraction] 6.1 % Normal 4.6 - 7.1 [facility]; [facility] Work Phone: VITAMIN B-12 (CYANOCOBALAMIN ) ([phone])Ordered By: Piggery Worker on 01-21-2022 Cobalamin (Vitamin B12) [Mass/Vol] 828 pg/mL Normal 232-1245 [facility]; [facility] Work Phone: CBC, Platelets & Auto Diff ( [phone])Ordered By: Piggery Worker on 12-25-2021 Basophils (Bld) [#/Vol] 0.0 10*3/uL [...] Phone: Lymphocytes/100 WBC (Bld) 28 % Normal [facility]; [facility] Work Phone: MCH (RBC) [Entitic mass] 30.3 pg Normal 26.6-33.0 [facility]; [facility] Work Phone: MCHC (RBC) [Mass/Vol] 33.7 g/dL Normal 31.5-35.7 [facility] prehensive Internal Medicine; [facility] [...] RBC (Bld) [#/Vol] 4.26 10*6/uL Normal 4.14-5.80 [facility] Internal Medicine; [facility] Work Phone: WBC (Bld) [#/Vol] 6.5 10*3/uL Normal 3.4-10.8 [facility]; [facility] Work Phone: LIPID PANEL ([phone])Ordered B y: Piggery Worker on 12-25-2021 Cholesterol [Mass/Vol] 89 mg/dL Abnormal 100-199 [facility]; [facility] Work Phone: Cholesterol in HDL [Mass/Vol] 30 mg/dL Abnormal [facility]; [facility] Work Phone: Triglyceride [Mass/Vol] 51 mg/dL Normal 0-149 [facility]; [facility] Work Phone: LIPID PANEL ([phone]) 13 mg/dL Normal 5-40 [facility] Internal Medicine; [facility] Work Phone: LIPID PANEL (88161) 46 mg/dL Normal 0-99 [facility] Internal Medicine; [facility] Work Phone: LIPID PANEL (60602) 1.5 {ratio} Normal 0.0-3.6 [facility] Internal Medicine; [facility] Work Phone: MICROALBUMINOrdered By: Syst em Wharf Operator on 12-25-2021 Albumin DL <= 20 mg/L (U) [Mass/Vol] 34.3 ug/mL Normal [facility]; [facility] Work Phone: Albumin/Creatinine (U) [Mass ratio] 25 {mg/g_creat} Normal 0-29 [facility]; [facility] Work Phone: Creatinine (U) [Mass/Vol] 139.8 mg/dL Normal [facility]; [facility] Work Phone: Metabolic Panel, Comprehensi ve ([phone])Ordered By: Piggery Worker on 12-25-2021 Albumin [Mass/Vol] 4.0 g/dL Normal 3.6-4.6 [facility] Internal Medicine; [facility] Work Phone: Albumin/Globulin [Mass ratio] 1.9 {ratio} Normal 1.2-2.2 [facility]; [facility] Work Phone: ALP [Catalytic activity/Vol] 122 U/L Abnormal 44-121 [facility]; [facility] Work Phone: ALT [Catalytic activity/Vol] 12 U/L Normal 0-44 [facility]; [facility] Work Phone: AST [Catalytic activity/Vol] 18 U/L Normal 0-40 [facility]; [facility] Work Phone: Bilirubin [Mass/Vol] 1.0 mg/dL Normal 0.0-1.2 [facility] rehensive Internal Medicine; [facility] Work Phone: Calcium [Mass/Vol] 8.9 mg/dL Normal 8.6-10.2 [facility] Internal Medicine; [facility] Work Phone: Chloride [Moles/Vol] 105 mmol/L Normal 96-106 [facility]; [facility] Work Phone: CO2 [Moles/Vol] 23 mmol/L Normal 20-29 [facility] Internal Medicine; [facility] Work Phone: Creatinine [Mass/Vol] 0.95 mg/dL Normal 0.76-1.27 [facility] prehensive Internal Medicine; [facility] Work Phone: Globulin (S) [Mass/Vol] 2.1 g/dL Normal 1.5-4.5 [facility]; [facility] Work Phone: Glucose [Mass/Vol] 121 mg/dL Abnormal 65-99 [facility] Internal Medicine; [facility] Work Phone: Potassium [Moles/Vol] 4.7 mmol/L Normal 3.5-5.2 [facility] prehensive Internal Medicine; [facility] Work Phone: Protein [Mass/Vol] 6.1 g/dL Normal 6.0-8.5 [facility] Internal [facility]; [facility] Work Phone: Sodium [Moles/Vol] 141 mmol/L Normal 134-144 [facility] Internal [facility]; [facility] Work Phone: Urea nitrogen [Mass/Vol] 15 mg/dL Normal 8-27 [facility]; [facility] Work Phone: Urea nitrogen/Creatinine [Mass ratio] 16 mg/mg Normal 10-24 [facility]; [facility] Work Phone: Metabolic Panel, [facility] ([id number]) 79 mL/min/1.73 Normal Comprehens [facility] Internal Medicine; [facility] Work Phone: TSH (THYROID STIMULATING HOR FAWN) (53762)Ordered By: Piggery Worker on 12-25-2021 TSH Qn 1.950 {uIU/mL} Normal 0.450-4.50 0 [facility]; [facility] Work Phone: CBC & PLATELETS (AUTO) ([phone])Ordered By: Piggery Worker on 08-08-2020 Erythrocyte distribution width (RBC) [Ratio] 13.0 % Normal 11.6-15.4 [facility] Work Phone: Comment on above: Test(s) 876700-GQH-X ; 347572-ZRC-R; 502467-Fzvpyvxotavmb; 284140-Dcrgdckrgix, Total; 267295-WNY-H (Total); 552426-Hqlzd LDL-P; 657913-VJG Size; 800311-DJ-XY Scorewas developed and its performance characteristics determinedby [employer]. It has not been cleared or approved by the Foodand Drug Administration.PATIENT WAS FASTINGPERFORMED BY: BN LabCoJodi [place] [id number] [facility] [id number] BY: CB LabCoInspira Medical Center VinelandRwpxdl9034 [facility] [id number] Hematocrit (Bld) [Volume fraction] 44.4 % Normal 37.5-51.0 [facility] Work Phone: Comment on above: Test(s) 825686-AIM-P ; 765011-UJY-T; 693813-Wbbslmxdupcok; 234508-Lfjdzbfyday, Total; 141864-BYM-X (Total); 104823-Fswby LDL-P; 892041-YHU Size; 310419-LK-JQ Scorewas developed and its performance characteristics determinedby [employer]. It has not been cleared or approved by the Foodand Drug Administration.PATIENT WAS FASTINGPERFORMED BY: [employer] [address] [id number] BY: [employer]70 [facility] [id number] Hemoglobin (Bld) [Mass/Vol] 15.0 g/dL Normal 13.0-17.7 [facility] Work Phone: Comment on above: Test(s) 914686-ICC-M ; 289510-FMF-J; 466628-Drnjjwvkgonvt; 309303-Ktmvozvtqdh, Total; 875784-KCZ-V (Total); 611803-Jlkpr LDL-P; 700674-TYD Size; 935350-JJ-EB Scorewas developed and its performance characteristics determinedby [employer]. It has not been cleared or approved by the Foodand Drug Administration.PATIENT WAS FASTINGPERFORMED BY: [employer] [address] [id number] BY: [employer].comlin6370 [facility] [id number] MCH (RBC) [Entitic mass] 31.0 pg Normal 26.6-33.0 [facility] Work Phone: Comment on above: Test(s) 552532-ZDZ-P ; 198639-NPA-C; 797142-Vaekahtvzhvyt; 451843-Ruiaqygftwd, Total; 112559-PYL-S (Total); 852150-Dzmtw LDL-P; 265032-GDH Size; 257723-WZ-HG Scorewas developed and its performance characteristics determinedby [employer]. It has not been cleared or approved by the Foodand Drug Administration.PATIENT WAS FASTINGPERFORMED BY: [employer] [address] [id number] BY: Begun Lipdmx8354 [facility] [id number] MCHC (RBC) [Mass/Vol] 33.8 g/dL Normal 31.5-35.7 [facility] Internal Medicine Work Phone: Comment on above: Test(s) 259249-CEB-P ; 822088-BGJ-H; 530446-Lbvdyoxgdiwsb; 638531-Ygskapqnyxc, Total; 306113-XQO-U (Total); 306200-Thxmn LDL-P; 648269-AJW Size; 277118-NJ-QZ Scorewas developed and its performance characteristics determinedby [employer]. It has not been cleared or approved by the Foodand Drug Administration.PATIENT WAS FASTINGPERFORMED BY: MitraSpan[address] [id number] BY: [employer] [place]6370 [facility] [id number] MCV (RBC) [Entitic vol] 92 fL Normal 79-97 [facility] Work Phone: Comment on above: Test(s) 738225-MCG-L ; 573245-WLU-F; 713728-Boqaimauceggk; 450876-Ilzadeyrzgr, Total; 199941-DRZ-E (Total); 881810-Lvlnw LDL-P; 461219-NLE Size; 433670-YH-CQ Scorewas developed and its performance characteristics determinedby [employer]. It has not been cleared or approved by the Foodand Drug Administration.PATIENT WAS FASTINGPERFORMED BY: [employer] [address] [id number] BY: ATEMEInspira Medical Center VinelandZezvai9601 [facility] [id number] Platelets (Bld) [#/Vol] 207 {x10E3/uL} Normal 150-450 [facility] Work Phone: Comment on above: Test(s) 562237-WEG-P ; 440893-TXD-R; 008114-Deqnvknjskree; 408891-Mtjdlkxevpm, Total; 189825-PJO-K (Total); 342396-Mexrj LDL-P; 021563-MYH Size; 153778-AI-QK Scorewas developed and its performance characteristics determinedby [employer]. It has not been cleared or approved by the Foodand Drug Administration.PATIENT WAS FASTINGPERFORMED BY: [employer] [address] [id number] BY: [employer] Tjorkp2926 [facility] [id number] Platelets (Bld) [#/Vol] 207 10*3/uL Normal 150-450 [facility]; [facility] Work Phone: RBC (Bld) [#/Vol] 4.84 {x10E6/uL} Normal 4.14-5.80 [facility] Internal Medicine Work Phone: Comment on above: Test(s) 952593-BLX-X ; 598531-WDA-P; 914074-Yguvrpyfgcohx; 343619-Jczwgfdfqky, Total; 411768-FXN-K (Total); 698193-Gkibu LDL-P; 957385-TMY Size; 174464-KG-SG Scorewas developed and its performance characteristics determinedby [employer]. It has not been cleared or approved by the Foodand Drug Administration.PATIENT WAS FASTINGPERFORMED BY: [employer] Bcggacnxcm9414 [facility] [id number] BY: [employer] Pwvybk7173 [facility] [id number] RBC (Bld) [#/Vol] 4.84 10*6/uL Normal 4.14-5.80 [facility] Work Phone: WBC (Bld) [#/Vol] 7.1 {x10E3/uL} Normal 3.4-10.8 [facility] Work Phone: Comment on above: Test(s) 414808-UFA-K ; 928044-IEJ-K; 757870-Rsokbwvogggjt; 109097-Trktnvrcudr, Total; 291808-WOK-P (Total); 777303-Zsvcd LDL-P; 635556-CJU Size; 166321-PP-FQ Scorewas developed and its performance characteristics determinedby [employer]. It has not been cleared or approved by the Foodand Drug Administration.PATIENT WAS FASTINGPERFORMED BY: [employer] [address] [id number] BY: BegunCibola General HospitalCmhkep5788 [facility] [id number] WBC (Bld) [#/Vol] 7.1 10*3/uL Normal 3.4-10.8 [facility] Internal Medicine; [facility] Work Phone: METABOLIC PANEL, COMPREHENSI VE (57524)Ordered By: Piggery Worker on 08-08-2020 Albumin [Mass/Vol] 4.3 g/dL Normal 3.6-4.6 [facility] Internal Medicine Work Phone: Comment on above: Test(s) 297813-LOV-V ; 816583-OXG-G; 269286-Lkjbowcsxvujr; 278339-Hvyucykqrrc, Total; 093289-ZOI-I (Total); 947388-Wwvar LDL-P; 820467-YMW Size; 379680-DK-QV Scorewas developed and its performance characteristics determinedby [employer]. It has not been cleared or approved by the Foodand Drug Administration.PATIENT WAS FASTINGPERFORMED BY: [employer] [address] [id number] BY: [employer]6370 [facility] [id number] Albumin/Globulin [Mass ratio] 2.0 {ratio} Normal 1.2-2.2 [facility] Work Phone: Comment on above: Test(s) 033137-NOV-R ; 922015-SLC-R; 545510-Dnoimrxdhqatx; 724647-Vznykuqboqa, Total; 130983-MLE-W (Total); 256123-Davnf LDL-P; 869908-GMX Size; 596064-ST-YV Scorewas developed and its performance characteristics determinedby [employer]. It has not been cleared or approved by the Foodand Drug Administration.PATIENT WAS FASTINGPERFORMED BY: Begun[address] [id number] BY: Begun Qxkhch8501 [facility] [id number] ALP [Catalytic activity/Vol] 136 [iU]/L Abnormal 39-117 [facility] Work Phone: Comment on above: Test(s) 387738-WYY-V ; 442065-VDY-N; 972314-Npgwnjkwbehhx; 424490-Dpdriwqinfa, Total; 866302-YOD-L (Total); 682821-Olrjt LDL-P; 362632-RAV Size; 225514-BU-KY Scorewas developed and its performance characteristics determinedby [employer]. It has not been cleared or approved by the Foodand Drug Administration.PATIENT WAS FASTINGPERFORMED BY: [employer] [address] [id number] BY: BegunInspira Medical Center VinelandFvgsye9865 [facility] [id number] ALP [Catalytic activity/Vol] 136 U/L Abnormal 39-117 [facility]; [facility] Work Phone: ALT [Catalytic activity/Vol] 14 [iU]/L Normal 0-44 [facility] Work Phone: Comment on above: Test(s) 439509-CSJ-Q ; 111542-KZR-C; 508823-Euconddcoxtaw; 940895-Szhglsnmjmm, Total; 507763-JYQ-N (Total); 453847-Ygzfq LDL-P; 896352-UGW Size; 347503-HM-PE Scorewas developed and its performance characteristics determinedby [employer]. It has not been cleared or approved by the Foodand Drug Administration.PATIENT WAS FASTINGPERFORMED BY: Begun[address] [id number] BY: BegunInspira Medical Center VinelandGaefux7158 [facility] [id number] ALT [Catalytic activity/Vol] 14 U/L Normal 0-44 [facility]; [facility] Work Phone: AST [Catalytic activity/Vol] 18 [iU]/L Normal 0-40 [facility] Work Phone: Comment on above: Test(s) 260124-UWU-C ; 984268-UOB-Y; 442841-Dxnlanljbkwve; 746610-Jrvstzeivpu, Total; 698465-YDN-U (Total); 847761-Qhijo LDL-P; 536908-CLI Size; 892317-FG-XA Scorewas developed and its performance characteristics determinedby [employer]. It has not been cleared or approved by the Foodand Drug Administration.PATIENT WAS FASTINGPERFORMED BY: MitraSpan[address] [id number] BY: [employer]70 [facility] [id number] AST [Catalytic activity/Vol] 18 U/L Normal 0-40 [facility]; [facility] Work Phone: Bilirubin [Mass/Vol] 1.1 mg/dL Normal 0.0-1.2 [facility] Internal Medicine Work Phone: Comment on above: Test(s) 232178-YAG-Y ; 459514-ZLE-C; 188139-Nideqmqthrvaf; 111130-Jxxatbuuwdz, Total; 458380-PGA-U (Total); 363751-Kbxjw LDL-P; 508916-GAS Size; 400750-OQ-XI Scorewas developed and its performance characteristics determinedby [employer]. It has not been cleared or approved by the Foodand Drug Administration.PATIENT WAS FASTINGPERFORMED BY: [employer] [address] [id number] BY: [employer]70 [facility] [id number] Calcium [Mass/Vol] 9.2 mg/dL Normal 8.6-10.2 [facility] Internal Medicine Work Phone: Comment on above: Test(s) 392579-LYZ-B ; 686880-WHN-O; 667409-Oxycvosaimnhm; 242423-Pojxcuuwkae, Total; 928984-YAT-B (Total); 277895-Qrnoy LDL-P; 371008-MTC Size; 183301-NE-GU Scorewas developed and its performance characteristics determinedby [employer]. It has not been cleared or approved by the Foodand Drug Administration.PATIENT WAS FASTINGPERFORMED BY: [employer] [address] [id number] BY: [employer]70 [facility] Check CardFirst[facility] [id number] Chloride [Moles/Vol] 106 mmol/L Normal 96-106 [facility] Internal Medicine Work Phone: Comment on above: Test(s) 627947-VDM-I ; 706333-MIO-W; 522113-Ojdjjjuvxxbsl; 849916-Jsbzwwjrsil, Total; 819395-DZH-P (Total); 466627-Ujjhw LDL-P; 446878-HCC Size; 018622-IE-BF Scorewas developed and its performance characteristics determinedby [employer]. It has not been cleared or approved by the Foodand Drug Administration.PATIENT WAS FASTINGPERFORMED BY: [employer] [address] [id number] BY: [employer]70 Cash Check CardFirstHealth [facility] Hospital [id number] CO2 [Moles/Vol] 23 mmol/L Normal 20-29 [facility] Internal Medicine Work Phone: Comment on above: Test(s) 504566-LBG-A ; 677467-EPL-B; 992440-Wcuyqzflpsvlq; 157817-Fyshjcdcefd, Total; 582565-HRP-Y (Total); 832800-Uflfc LDL-P; 364973-ULA Size; 843021-YO-NM Scorewas developed and its performance characteristics determinedby [employer]. It has not been cleared or approved by the Foodand Drug Administration.PATIENT WAS FASTINGPERFORMED BY: [employer] [address] [id number] BY: [employer] [place] Cash Check CardFirstHealth Montgomery Memorial Hospital [id number] Creatinine [Mass/Vol] 1.04 mg/dL Normal 0.76-1.27 [facility] Internal Medicine Work Phone: Comment on above: Test(s) 175791-GFB-X ; 391187-EZT-X; 857507-Mybgwllqbpxkz; 125184-Pfhbjrkledn, Total; 956313-IPL-G (Total); 904122-Iqifg LDL-P; 756392-MDD Size; 983249-HC-JO Scorewas developed and its performance characteristics determinedby [employer]. It has not been cleared or approved by the Foodand Drug Administration.PATIENT WAS FASTINGPERFORMED BY: MitraSpan[address] [id number] BY: [employer] [facility] [id number] GFR/1.73 sq M predicted among blacks CKD-EPI (S/P/Bld) [Vol rate/Area] 76 mL/min/1.73 [facility] Internal Medicine Work Phone: Comment on above: Test(s) 913655-IFC-O ; 108036-OZE-Z; 673905-Svfgfgaihpjzw; 706824-Mbvzumibukk, Total; 489726-SIW-R (Total); 636588-Hwipm LDL-P; 446042-JRO Size; 968974-HW-PP Scorewas developed and its performance characteristics determinedby [employer]. It has not been cleared or approved by the Foodand Drug Administration.PATIENT WAS FASTINGPERFORMED BY: [employer] [address] [id number] BY: [employer] [place] [facility] [id number] GFR/1.73 sq M predicted among non-blacks CKD-EPI (S/P/Bld) [Vol rate/Area] 66 mL/min/1.73 Normal [facility] Work Phone: Comment on above: Test(s) 800805-YMT-J ; 559463-PDU-X; 347521-Bamfpgurudora; 214572-Vreeuqtzfnv, Total; 575464-ASV-G (Total); 541289-Cwlst LDL-P; 788631-TYM Size; 111414-AK-SC Scorewas developed and its performance characteristics determinedby [employer]. It has not been cleared or approved by the Foodand Drug Administration.PATIENT WAS FASTINGPERFORMED BY: [employer] [address] [id number] BY: [employer] [facility] [place] [facility] DiagnovusFirstHealth Montgomery Memorial Hospital [id number] Globulin (S) [Mass/Vol] 2.1 g/dL Normal 1.5-4.5 [facility] Work Phone: Comment on above: Test(s) 946620-PXS-E ; 850719-HYI-W; 768397-Fbajeiklztslk; 522899-Ppbqtidglbp, Total; 912326-IZE-R (Total); 784673-Izfut LDL-P; 580090-LLL Size; 278631-ZY-JV Scorewas developed and its performance characteristics determinedby [employer]. It has not been cleared or approved by the Foodand Drug Administration.PATIENT WAS FASTINGPERFORMED BY: [employer] [address] [id number] BY: [employer]70 Cash Check CardFirstHealth Montgomery Memorial Hospital [id number] Glucose [Mass/Vol] 194 mg/dL Abnormal 65-99 [facility] Internal Medicine Work Phone: Comment on above: Test(s) 606820-NHY-C ; 857007-LSO-R; 879850-Nubinpuggthjj; 473992-Atuvxztvryd, Total; 592706-WYI-I (Total); 136525-Xndgm LDL-P; 430531-VQQ Size; 573225-HZ-YZ Scorewas developed and its performance characteristics determinedby [employer]. It has not been cleared or approved by the Foodand Drug Administration.PATIENT WAS FASTINGPERFORMED BY: [employer] [address] [id number] BY: [employer] [place] [employer] DiagnovusFirstHealth Montgomery Memorial Hospital [id number] Potassium [Moles/Vol] 4.3 mmol/L Normal 3.5-5.2 [facility] Internal Medicine Work Phone: Comment on above: Test(s) 649119-WFH-A ; 193353-WEU-P; 750479-Yckabmvjjukem; 797639-Sqrhkxxghnd, Total; 621026-TMX-M (Total); 907995-Ipsma LDL-P; 214177-KFL Size; 085262-EI-QM Scorewas developed and its performance characteristics determinedby [employer]. It has not been cleared or approved by the Foodand Drug Administration.PATIENT WAS FASTINGPERFORMED BY: [employer] [address] [id number] BY: [employer] Iknrvd8871 [facility] [id number] Protein [Mass/Vol] 6.4 g/dL Normal 6.0-8.5 [facility] Internal Medicine Work Phone: Comment on above: Test(s) 567524-JAU-A ; 145714-PXZ-A; 681058-Hwhnfujtusrzs; 474425-Wybselfqdpl, Total; 951802-YUZ-J (Total); 678133-Pjpwo LDL-P; 491777-EPI Size; 732610-LC-FQ Scorewas developed and its performance characteristics determinedby [employer]. It has not been cleared or approved by the Foodand Drug Administration.PATIENT WAS FASTINGPERFORMED BY: [employer] [address] [id number] BY: [employer] Bzgwic1876 [facility] [id number] Sodium [Moles/Vol] 142 mmol/L Normal 134-144 [facility] Internal Medicine Work Phone: Comment on above: Test(s) 357549-GID-E ; 335814-QAE-B; 960403-Mdmiyyzpuxgai; 068253-Yjopiwqtuzs, Total; 811970-UWS-O (Total); 015268-Tbluy LDL-P; 213098-HYI Size; 679742-QQ-ST Scorewas developed and its performance characteristics determinedby [employer]. It has not been cleared or approved by the Foodand Drug Administration.PATIENT WAS FASTINGPERFORMED BY: [employer] [address] [id number] BY: BegunInspira Medical Center VinelandVfoaif3716 [facility] [id number] Urea nitrogen [Mass/Vol] 15 mg/dL Normal 8- [facility] Work Phone: Comment on above: Test(s) 435989-TFD-Y ; 786076-SSJ-X; 154129-Jvouvpupjnuxx; 732421-Xhnpijqczbt, Total; 316080-CIU-B (Total); 159611-Getqi LDL-P; 961164-WKQ Size; 248453-DW-SJ Scorewas developed and its performance characteristics determinedby [employer]. It has not been cleared or approved by the Foodand Drug Administration.PATIENT WAS FASTINGPERFORMED BY: [employer] [address] [id number] BY: [employer]70 [facility] [id number] Urea nitrogen/Creatinine [Mass ratio] 14 mg/mg Normal 10- [facility] Work Phone: Comment on above: Test(s) 559272-NPU-E ; 069767-VXY-W; 502588-Jflmuqpolsdkj; 752516-Gaivwfdwqew, Total; 204168-KJC-I (Total); 203961-Lnyfp LDL-P; 989395-QTK Size; 092712-AG-DI Scorewas developed and its performance characteristics determinedby [employer]. It has not been cleared or approved by the Foodand Drug Administration.PATIENT WAS FASTINGPERFORMED BY: [facility] [id number] BY: ATEMEInspira Medical Center VinelandDkqqcg4827 [facility] [id number] MICROALBUMINOrdered By: Syst em Wharf Operator on 08-08-2020 Albumin DL <= 20 mg/L (U) [Mass/Vol] 43.2 ug/mL Normal [facility] Work Phone: Comment on above: Test(s) 908028-KUA-N ; 030160-YQL-Y; 817576-Cxsficgwpqmyi; 573738-Ikqxcejtmrw, Total; 598362-JKM-Q (Total); 628423-Rdiqb LDL-P; 622245-CPG Size; 067433-KJ-DJ Scorewas developed and its performance characteristics determinedby [employer]. It has not been cleared or approved by the Foodand Drug Administration.PATIENT WAS FASTINGPERFORMED BY: [employer] [address] [id number] BY: [employer] [place] [address] [id number] Albumin/Creatinine (U) [Mass ratio] 22 {mg/g_creat} Normal 0-29 [facility] Work Phone: Comment on above: Normal: 0 - 29 Moder ately increased: 30 - 300 Severely increased: >300 Test(s) 658648-HPS-J ; 284740-SDV-A; 642097-Vcauskikrlcod; 772310-Okedllmtqeb, Total; 299595-JCV-G (Total); 844290-Fnfht LDL-P; 354450-PMJ Size; 895254-CF-PA Scorewas developed and its performance characteristics determinedby [employer]. It has not been cleared or approved by the Foodand Drug Administration.PATIENT WAS FASTINGPERFORMED BY: [employer] [address] [id number] BY: [employer]6[address] [facility] [id number] Creatinine (U) [Mass/Vol] 196.9 mg/dL Normal [facility] Work Phone: Comment on above: Test(s) 689460-LMC-J ; 444354-KYU-S; 343906-Cifdsgiysddfj; 550666-Pwjwiroygbm, Total; 253472-MCC-J (Total); 219124-Bcpoi LDL-P; 405417-MVQ Size; 340988-AK-WI Scorewas developed and its performance characteristics determinedby [employer]. It has not been cleared or approved by the Foodand Drug Administration.PATIENT WAS FASTINGPERFORMED BY: [employer] [address] [id number] BY: [employer] [place] Cash Check CardFirstHealth [facility] Memorial Hospital [id number] NMR Profile (50007)Ordered B y: Piggery Worker on 08-08-2020 Cholesterol [Mass/Vol] 107 mg/dL Normal 100-199 [facility] Work Phone: Comment on above: Test(s) 760969-VRD-G ; 612040-JUD-E; 636132-Igkvcteufnsqx; 356892-Xeeulgujlsu, Total; 144695-ZNR-F (Total); 163766-Upbdx LDL-P; 321388-OHU Size; 975068-PG-DX Scorewas developed and its performance characteristics determinedby [employer]. It has not been cleared or approved by the Foodand Drug Administration.PATIENT WAS FASTINGPERFORMED BY: [employer] [id number] BY: [employer]70 Cash Check CardFirstHealth Montgomery Memorial Hospital [id number] Lipoprotein.alpha [Moles/Vol] 25.3 umol/L Abnormal [facility] Work Phone: Comment on above: Test(s) 368183-VAW-W ; 156759-XSI-A; 747093-Jykohdbmlqast; 383378-Yjlkqicofuo, Total; 043545-ULV-V (Total); 863537-Nalmv LDL-P; 340529-XIQ Size; 508784-TF-QG Scorewas developed and its performance characteristics determinedby [employer]. It has not been cleared or approved by the Foodand Drug Administration.PATIENT WAS FASTINGPERFORMED BY: [employer] [address] [id number] BY: [employer] [facility] [place] [facility] DiagnovusFirstHealth Montgomery Memorial Hospital [id number] Lipoprotein.beta.subp article [Entitic length] 21.0 nm Normal [...] not afterLDL-P is taken into account. Test(s) 675879-VHF-Z ; 713890-JKD-B; 638586-Olztlkxurysfn; 441706-Jbwkjvgtpxv, Total; 434426-VCQ-L (Total); 132035-Xyvuh LDL-P; 229931-DOJ Size; 175128-PX-BE Scorewas developed and its performance characteristics determinedby [employer]. It has not been cleared or approved by the Foodand Drug Administration.PATIENT WAS FASTINGPERFORMED BY: [employer] [address] [id number] BY: [employer] [address] [id number] Lipoprotein.beta.subp article [Moles/Vol] 684 nmol/L Normal Comprehensiv e Internal Medicine Work Phone: Comment on above: Low < 1000 Moderate 1000 - 1299 Borderline-High 1300 - 1599 High 1600 - 2000 Very High > 2000 Test(s) 520095-PKF-A ; 122781-VDW-R; 870330-Ezvzxolptpeld; 060385-Lqsaqztgzol, Total; 238382-XXK-P (Total); 501953-Kipas LDL-P; 326319-ABT Size; 010663-JR-ML Scorewas developed and its performance characteristics determinedby [employer]. It has not been cleared or approved by the Foodand Drug Administration.PATIENT WAS FASTINGPERFORMED BY: [employer] [address] [id number] BY: ATEMECibola General HospitalZbrhuv9598 [facility] [id number] Lipoprotein.beta.subp article.small [Moles/Vol] 114 nmol/L Normal [facility] Work Phone: Comment on above: Test(s) 646594-AKP-R ; 149456-ZSC-B; 630891-Iveohazvvrzfe; 321450-Aufayuiapkr, Total; 966456-UBE-U (Total); 724092-Shvzd LDL-P; 260054-XJN Size; 761464-NA-RO Scorewas developed and its performance characteristics determinedby [employer]. It has not been cleared or approved by the Foodand Drug Administration.PATIENT WAS FASTINGPERFORMED BY: MitraSpan[address] [id number] BY: [employer] [place] [facility] [id number] Triglyceride [Mass/Vol] 69 mg/dL Normal 0-149 [facility] Work Phone: Comment on above: Test(s) 103999-AFD-X ; 480764-ERK-I; 206214-Nczxpvhvcxxox; 048789-Gxbkltyamyj, Total; 579501-EWL-Y (Total); 138722-Fewah LDL-P; 371844-NYW Size; 849668-EK-EC Scorewas developed and its performance characteristics determinedby [employer]. It has not been cleared or approved by the FoodEyenalyze Drug Administration.PATIENT WAS FASTINGPERFORMED BY: [employer] [address] [id number] BY: ATEMEInspira Medical Center VinelandMfpbpr5793 [facility] [id number] NMR Profile (93844) 60 mg/dL Normal 0-99 [facility] Internal Medicine Work Phone: Comment on above: . Optimal < 100 Abov e optimal 100 - 129 Borderline 130 - 159 High 160 - 189 Very high > 189 . Test(s) 572504-QBP-P ; 488205-QHV-Q; 155083-Ghaqvdppucwsg; 289646-Zghkqbtetml, Total; 356600-JPA-W (Total); 126109-Vmosr LDL-P; 833214-CSY Size; 081376-KL-ZP Scorewas developed and its performance characteristics determinedby [employer]. It has not been cleared or approved by the Foodand Drug Administration.PATIENT WAS FASTINGPERFORMED BY: [employer] Owrodtnnqy3751 [facility] [id number] BY: [employer] Rohyyf3883 [facility] [id number] NMR Profile (33395) 32 mg/dL Abnormal [facility] Internal Medicine Work Phone: Comment on above: Test(s) 752158-RGO-L ; 317587-XKQ-P; 149339-Kqyknydqldiua; 019821-Hhnxdoykyyq, Total; 967903-LLN-Q (Total); 649994-Hetxq LDL-P; 393281-HLV Size; 436951-GE-NU Scorewas developed and its performance characteristics determinedby [employer]. It has not been cleared or approved by the Foodand Drug Administration.PATIENT WAS FASTINGPERFORMED BY: [employer] Dwjfxrcngy0997 [facility] [id number] BY: [employer] Tdodtk1078 [facility] [id number] NMR Profile (54362) 69 mg/dL Normal 0-149 [facility] Work Phone: NMR Profile (59138) 107 mg/dL Normal 100-199 [facility] Work Phone: TSH (THYROID STIMULATING HOR FAWN) (52237)Ordered By: Piggery Worker on 08-08-2020 TSH Qn 2.010 {uIU/mL} Normal 0.450-4.50 0 [facility] Work Phone: Comment on above: Test(s) 779934-XUT-A ; 436633-TOB-C; 456551-Wfnupejcejkms; 726250-Fgmepcqxvao, Total; 321534-QCM-K (Total); 033481-Pbvrh LDL-P; 133088-SRK Size; 646116-NI-VZ Scorewas developed and its performance characteristics determinedby [employer]. It has not been cleared or approved by the Foodand Drug Administration.PATIENT WAS FASTINGPERFORMED BY: [employer] [address] [id number] BY: [employer]70 Cash Check CardFirstHealth Montgomery Memorial Hospital [id number] URINALYSIS W MICROSCOPY (810 00)Ordered By: Piggery Worker on 08-08-2020 Appearance (U) Clear Normal Comprehens shawn Internal Medicine Work Phone: Comment on above: Test(s) 866990-PIH-P ; 980601-MIY-R; 801264-Cftvjgxmmalzs; 485690-Lxwxfawrjcq, Total; 402870-KUA-K (Total); 744648-Rrmvr LDL-P; 264074-ULS Size; 864106-QU-VH Scorewas developed and its performance characteristics determinedby [employer]. It has not been cleared or approved by the Foodand Drug Administration.PATIENT WAS FASTINGPERFORMED BY: [employer] [address] [id number] BY: [employer]70 Cash Check CardFirstHealth Montgomery Memorial Hospital [id number] Bilirubin Ql (U) Negative Normal Comprehe nsive Internal Medicine Work Phone: Comment on above: Test(s) 316827-LNU-T ; 277749-JOT-V; 776302-Ekhhacoztanxc; 225161-Trikgzeomfj, Total; 878924-NZR-I (Total); 087683-Uxxka LDL-P; 876778-PTC Size; 805826-PP-BX Scorewas developed and its performance characteristics determinedby [employer]. It has not been cleared or approved by the Foodand Drug Administration.PATIENT WAS FASTINGPERFORMED BY: [employer] [address] [id number] BY: [employer]70 Cash Check CardFirstHealth Montgomery Memorial Hospital [id number] Bilirubin Ql (U) Negative Normal Comprehe nsive Internal Medicine; [facility] Work Phone: Color (U) Yellow Normal [facility] Work Phone: Comment on above: Test(s) 919762-FLH-B ; 206644-RWH-F; 280574-Zwjsymohbsqtw; 409884-Sgousihzyzp, Total; 148782-UUC-L (Total); 526230-Popaf LDL-P; 941981-VBA Size; 308834-OU-PI Scorewas developed and its performance characteristics determinedby [employer]. It has not been cleared or approved by the Foodand Drug Administration.PATIENT WAS FASTINGPERFORMED BY: MitraSpan[address] [id number] BY: [employer] Nbnlhh6963 [facility] [id number] Glucose Ql (U) Negative Normal Comprehens shawn Internal Medicine Work Phone: Comment on above: Test(s) 220520-PWF-K ; 768020-SAJ-I; 486824-Owphfatpvlexl; 989073-Snqnpanahis, Total; 950588-GQP-T (Total); 287681-Sqlfl LDL-P; 817358-TTZ Size; 733634-SN-VR Scorewas developed and its performance characteristics determinedby [employer]. It has not been cleared or approved by the Foodand Drug Administration.PATIENT WAS FASTINGPERFORMED BY: MitraSpan[address] [id number] BY: ATEMEInspira Medical Center VinelandCwjjuf7568 [facility] [id number] Glucose Ql (U) Negative Normal Comprehens shawn Internal Medicine; [facility] Work Phone: Hemoglobin Ql (U) Negative Normal Compreh ensive Internal Medicine Work Phone: Comment on above: Test(s) 962671-ZZQ-R ; 407004-VGL-C; 448165-Zrluicssirymy; 876582-Tbijuopeuwi, Total; 359561-REQ-P (Total); 020526-Qngwd LDL-P; 103861-FVY Size; 219975-KV-AF Scorewas developed and its performance characteristics determinedby [employer]. It has not been cleared or approved by the Foodand Drug Administration.PATIENT WAS FASTINGPERFORMED BY: [employer] [address] [id number] BY: [employer] Ylwgek1278 Cash Check CardFirstHealth Montgomery Memorial Hospital [id number] Hemoglobin Ql (U) Negative Normal Compreh ensive Internal Medicine; [facility] Work Phone: Ketones Ql (U) Trace Abnormal Comprehens shawn Internal Medicine Work Phone: Comment on above: Test(s) 881576-SEH-T ; 896952-JLB-P; 031988-Mkuaaakorkfbh; 947518-Tblifoybefm, Total; 689659-XNZ-I (Total); 882769-Wvyev LDL-P; 565819-YKI Size; 998437-ZC-XH Scorewas developed and its performance characteristics determinedby [employer]. It has not been cleared or approved by the Foodand Drug Administration.PATIENT WAS FASTINGPERFORMED BY: [employer] [address] [id number] BY: [employer]70 Cash Check CardFirstHealth [facility] Memorial Hospital [id number] Leukocyte esterase Test strip Ql (U) Negative Normal [facility] Work Phone: Comment on above: Test(s) 656616-OJY-R ; 939155-UFT-R; 812285-Auwfabdrjsltk; 917557-Lbpnyyotjkm, Total; 427861-SCP-T (Total); 241189-Inmyy LDL-P; 303409-UZI Size; 993311-OG-PM Scorewas developed and its performance characteristics determinedby [employer]. It has not been cleared or approved by the Foodand Drug Administration.PATIENT WAS FASTINGPERFORMED BY: [facility] [id number] BY: [employer] [facility] [place] Cash Check CardFirstHealth Montgomery Memorial Hospital [id number] Leukocyte esterase Test strip Ql (U) Negative Normal [facility]; [facility] Work Phone: Microscopic observation LM Nom (Urine sed) MICNIP Normal [facility] Work Phone: Comment on above: Microscopic not sander cated and not performed. Test(s) 170935-NUM-L ; 393871-FUO-N; 007509-Xisiasekljkwf; 084271-Gmdoiowywor, Total; 963167-GOH-S (Total); 650000-Ohyxy LDL-P; 742622-DQV Size; 922233-XB-KU Scorewas developed and its performance characteristics determinedby [employer]. It has not been cleared or approved by the Foodand Drug Administration.PATIENT WAS FASTINGPERFORMED BY: MitraSpan[address] [id number] BY: [employer] [facility] [id number] Nitrite Ql (U) Negative Normal Comprehens shawn Internal Medicine Work Phone: Comment on above: Test(s) 584125-UAX-L ; 396568-WOO-Z; 634888-Likytyfbxplhp; 769792-Khougofnqzi, Total; 512847-TFH-L (Total); 561838-Arqln LDL-P; 776155-DJH Size; 152408-DM-YL Scorewas developed and its performance characteristics determinedby [employer]. It has not been cleared or approved by the Foodand Drug Administration.PATIENT WAS FASTINGPERFORMED BY: MitraSpan[address] [id number] BY: [employer] [facility] [place] [facility] [id number] Nitrite Ql (U) Negative Normal Comprehens [facility]awn [facility]; [facility] Work Phone: pH (U) 5.5 [pH] Normal 5.0-7.5 [facility] Work Phone: Comment on above: Test(s) 319220-DVA-V ; 740868-IOQ-J; 301271-Zqpqwkzxvithi; 953281-Alqztqkbncr, Total; 968837-TEK-C (Total); 512521-Gnzmb LDL-P; 257040-GXS Size; 590654-VR-IA Scorewas developed and its performance characteristics determinedby [employer]. It has not been cleared or approved by the Foodand Drug Administration.PATIENT WAS FASTINGPERFORMED BY: [employer] [address] [id number] BY: [employer]70 Cash Check CardFirstHealth Montgomery Memorial Hospital [id number] Protein Ql (U) Trace Normal Comprehens [facility] Internal Medicine Work Phone: Comment on above: Test(s) 445925-THY-N ; 538869-FER-G; 133625-Gogugqhrhqvsj; 293342-Kaltkbdhnfo, Total; 152278-GDC-M (Total); 174644-Inxlf LDL-P; 397751-IKI Size; 057559-TN-AR Scorewas developed and its performance characteristics determinedby [employer]. It has not been cleared or approved by the Foodand Drug Administration.PATIENT WAS FASTINGPERFORMED BY: MitraSpan[address] [id number] BY: [employer]70 Cash Check CardFirstHealth Montgomery Memorial Hospital [id number] Specific gravity (U) [Rel density] 1.023 1 Normal 1.005-1.03 0 [facility] Work Phone: Comment on above: Test(s) 348521-NYB-T ; 759345-EGW-R; 862324-Bxpvlabvofton; 654623-Pvlidmkerpp, Total; 236203-XKS-A (Total); 162070-Mqxxa LDL-P; 344447-FGL Size; 304939-ZC-FK Scorewas developed and its performance characteristics determinedby [employer]. It has not been cleared or approved by the Foodand Drug Administration.PATIENT WAS FASTINGPERFORMED BY: [employer] [address] [id number] BY: [employer] [facility] [place] Cash Check CardFirstHealth Montgomery Memorial Hospital [id number] Urobilinogen (U) [Mass/Vol] 1.0 mg/dL Normal 0.2-1.0 [facility]; [facility] Work Phone: Urobilinogen Test strip (U) [Mass/Vol] 1.0 mg/dL Normal 0.2-1.0 Comprehensi Internal Medicine Work Phone: Comment on above: Test(s) 190518-UOR-A ; 017174-POQ-C; 983809-Rpbszmmflwfxa; 356089-Whmwzntttsm, Total; 593124-BOV-C (Total); 968793-Uwsuv LDL-P; 713552-EGK Size; 575808-SW-JE Scorewas developed and its performance characteristics determinedby [employer]. It has not been cleared or approved by the Foodand Drug Administration.PATIENT WAS FASTINGPERFORMED BY: [facility] [address] [id number] BY: CB [facility] Mrqlqv7595 [facility] [id number] Blood Glucose , Office ([phone])Ordered By: Candie Ramirez on 06-26-2020 Glucose Glucometer (BldC) [Moles/Vol] 145 1 Normal [facility] Work Phone: HgA1C , Office ([phone])Ordere d By: Candie Ramirez on 06-26-2020 HbA1c (Bld) [Mass fraction] 6.0 % Normal 4.6 - 7.1 [facility] Work Phone: Blood Glucose , Office ([phone])Ordered By: Yen Nolan on 02-25-2020 Glucose Glucometer (BldC) [Moles/Vol] 114 1 Normal [facility] Work Phone: HgA1C , Office ([phone])Ordere d By: Isabelle Patiño on 02-25-2020 HbA1c (Bld) [Mass fraction] 6.2 % Normal 4.6 - 7.1 [facility] Work Phone: CBC with auto diff ([phone])Or dered By: Piggery Worker on 02-20-2020 Basophils (Bld) [#/Vol] 0.0 {x10E3/uL} Normal 0.0-0.2 [facility] Work Phone: Comment on above: Test(s) 592906-ZVO-K ; 320558-JVZ-H; 707897-IAB-N; 989975-Ggyxqzjeghoxy; 769500-Qqyycnokyyk, Total; 558767-RRK-C (Total);712820-Dkrog LDL-P; 760731-LJH Size; 802180-RH-CU Scorewas developed and its performance characteristics determinedby [employer]. It has not been cleared or approved by the Foodand Drug Administration.PATIENT WAS FASTINGPERFORMED BY: [employer] [address] [id number] BY: [employer]70 [facility] [id number] Basophils (Bld) [#/Vol] 0.0 10*3/uL Normal 0.0-0.2 [facility]; [facility] Work Phone: Basophils/100 WBC (Bld) 0 % Normal [facility] Work Phone: Comment on above: Test(s) 409516-CQE-H ; 133682-GYV-W; 174876-RZI-C; 347356-Nmjsmjlxonhot; 043831-Edouvqbqfkz, Total; 513635-OMR-U (Total);716874-Mvbeg LDL-P; 977355-LKS Size; 605769-RJ-UT Scorewas developed and its performance characteristics determinedby [employer]. It has not been cleared or approved by the Foodand Drug Administration.PATIENT WAS FASTINGPERFORMED BY: [employer] [address] [id number] BY: [employer] [place] [facility] [id number] Eosinophils (Bld) [#/Vol] 0.1 {x10E3/uL} Normal 0.0-0.4 [facility] Work Phone: Comment on above: Test(s) 749155-HFO-D ; 138896-KYF-G; 075459-KBV-Y; 490234-Kqwlrvmhcpkin; 685102-Eiuauslsorn, Total; 942292-TQO-F (Total);404413-Ncmhz LDL-P; 197299-WTM Size; 301152-LH-UE Scorewas developed and its performance characteristics determinedby [employer]. It has not been cleared or approved by the Foodand Drug Administration.PATIENT WAS FASTINGPERFORMED BY: [employer] [address] [id number] BY: [employer] Wzmkri8045 [facility] [id number] Eosinophils (Bld) [#/Vol] 0.1 10*3/uL Normal 0.0-0.4 [facility]; [facility] Work Phone: Eosinophils/100 WBC (Bld) 2 % Normal [facility] Work Phone: Comment on above: Test(s) 199276-YMK-Q ; 502138-NXO-B; 278404-MPN-O; 399372-Rdjkksnweemyu; 191867-Jmhytfvbczh, Total; 840619-WBM-N (Total);761453-Edgqh LDL-P; 741534-LIK Size; 490902-SY-SR Scorewas developed and its performance characteristics determinedby [employer]. It has not been cleared or approved by the Foodand Drug Administration.PATIENT WAS FASTINGPERFORMED BY: [employer] [address] [id number] BY: [employer] Ilywpq9875 [facility] [id number] Erythrocyte distribution width (RBC) [Ratio] 13.0 % Normal 11.6-15.4 [facility] Work Phone: Comment on above: Test(s) 559684-NRK-P ; 968282-RLC-G; 421980-OKR-D; 835558-Owjuposopnixy; 054552-Yoybgiqieih, Total; 897660-WTZ-I (Total);219245-Ddkhu LDL-P; 634012-PUZ Size; 174039-MA-DZ Scorewas developed and its performance characteristics determinedby [employer]. It has not been cleared or approved by the Foodand Drug Administration.PATIENT WAS FASTINGPERFORMED BY: [employer] [address] [id number] BY: [employer] [place] [facility] [id number] Hematocrit (Bld) [Volume fraction] 41.7 % Normal 37.5-51.0 [facility] Work Phone: Comment on above: Test(s) 068514-CWV-F ; 123215-BLT-B; 607579-GAZ-S; 116408-Vnvavayluhjfk; 819985-Mgzjenwqdxz, Total; 839243-NSN-Q (Total);395104-Zoxdj LDL-P; 170066-MIK Size; 998184-WM-NP Scorewas developed and its performance characteristics determinedby [employer]. It has not been cleared or approved by the Foodand Drug Administration.PATIENT WAS FASTINGPERFORMED BY: [employer] [address] [id number] BY: [employer]70 [facility] [id number] Hemoglobin (Bld) [Mass/Vol] 14.1 g/dL Normal 13.0-17.7 [facility] Work Phone: Comment on above: Test(s) 825076-LOL-W ; 743649-SXI-Z; 038759-PKO-O; 147204-Ympejhnglcfqg; 164078-Xixxhivotac, Total; 884625-BTH-R (Total);974269-Wpnao LDL-P; 013477-PRP Size; 867096-VR-ZI Scorewas developed and its performance characteristics determinedby [employer]. It has not been cleared or approved by the Foodand Drug Administration.PATIENT WAS FASTINGPERFORMED BY: [employer] [address] [id number] BY: [employer]6370 [facility] [id number] Immature granulocytes (Bld) [#/Vol] 0.0 {x10E3/uL} Normal 0.0-0.1 [facility] Work Phone: Comment on above: Test(s) 071193-UXK-Z ; 098606-FID-F; 700586-JOH-P; 550046-Cdkhzakzubcch; 300071-Mhklaumgzkx, Total; 781643-MUE-I (Total);373306-Zncjp LDL-P; 352986-SND Size; 791527-FY-EQ Scorewas developed and its performance characteristics determinedby [employer]. It has not been cleared or approved by the Foodand Drug Administration.PATIENT WAS FASTINGPERFORMED BY: [employer] [address] [id number] BY: [employer] Ydlqbk4731 [facility] [id number] Immature granulocytes (Bld) [#/Vol] 0.0 10*3/uL Normal 0.0-0.1 [facility]; [facility] Work Phone: Immature granulocytes/100 WBC (Bld) 0 % Normal [facility] Work Phone: Comment on above: Test(s) 803973-IIS-A ; 442796-LSR-N; 084422-YQM-L; 184137-Xxgxajregqlkh; 010871-Vaamzrupeoe, Total; 109945-FLU-T (Total);659556-Dmjno LDL-P; 065231-OYY Size; 492298-RB-FS Scorewas developed and its performance characteristics determinedby [employer]. It has not been cleared or approved by the [employer] Drug Administration.PATIENT WAS FASTINGPERFORMED BY: [employer] [address] [id number] BY: [employer] Mggezd5120 [facility] [id number] Lymphocytes (Bld) [#/Vol] 1.9 {x10E3/uL} Normal 0.7-3.1 [facility] Work Phone: Comment on above: Test(s) 401175-XGJ-G ; 885241-BXL-L; 945749-OFP-B; 512015-Rplazkvuiwbcw; 441512-Ovvyysdlnuo, Total; 143804-YJX-X (Total);892222-Cnkrb LDL-P; 013261-QXT Size; 407177-BN-JL Scorewas developed and its performance characteristics determinedby [employer]. It has not been cleared or approved by the Foodand Drug Administration.PATIENT WAS FASTINGPERFORMED BY: [employer] [address] [id number] BY: BegunInspira Medical Center VinelandIqihaf3168 [facility] [id number] Lymphocytes (Bld) [#/Vol] 1.9 10*3/uL Normal 0.7-3.1 [facility]; [facility] Work Phone: Lymphocytes/100 WBC (Bld) 23 % Normal [facility] Work Phone: Comment on above: Test(s) 389565-ZEG-F ; 417693-UAW-N; 330023-VRQ-I; 638223-Cxsajlckadpna; 618116-Bpuhlzlqoqf, Total; 137304-DCQ-I (Total);293577-Zmrvc LDL-P; 548272-YMM Size; 576909-ZF-BL Scorewas developed and its performance characteristics determinedby [employer]. It has not been cleared or approved by the [employer] Drug Administration.PATIENT WAS FASTINGPERFORMED BY: [employer] [address] [id number] BY: [employer]70 [facility] [id number] MCH (RBC) [Entitic mass] 30.9 pg Normal 26.6-33.0 [facility] Work Phone: Comment on above: Test(s) 058025-IVK-A ; 538872-VDJ-B; 471689-YBR-Z; 916801-Cezlkoqoijxfm; 721905-Euutrizexqc, Total; 824889-AIT-K (Total);925140-Edhlq LDL-P; 701808-LAE Size; 723212-MK-GQ Scorewas developed and its performance characteristics determinedby [employer]. It has not been cleared or approved by the Foodand Drug Administration.PATIENT WAS FASTINGPERFORMED BY: [employer] [address] [id number] BY: [employer] Jyyruc8923 [facility] [id number] MCHC (RBC) [Mass/Vol] 33.8 g/dL Normal 31.5-35.7 [facility] Internal Medicine Work Phone: Comment on above: Test(s) 892781-EYS-Z ; 079166-RGD-U; 506648-UCP-C; 431242-Rmrteqykipurj; 871944-Xnmucfzrzxu, Total; 778349-ONT-C (Total);382127-Ttuhu LDL-P; 246278-SES Size; 465278-SV-CX Scorewas developed and its performance characteristics determinedby [employer]. It has not been cleared or approved by the Foodand Drug Administration.PATIENT WAS FASTINGPERFORMED BY: [employer] [facility] [id number] BY: [employer]70 [facility] [id number] MCV (RBC) [Entitic vol] 91 fL Normal 79-97 [facility] Work Phone: Comment on above: Test(s) 111939-VWQ-Y ; 723400-RAQ-L; 327106-HLO-G; 838705-Agvkfyspizsix; 999603-Msoiwpfgvro, Total; 856872-OSP-G (Total);545798-Cajaw LDL-P; 911085-JDH Size; 627373-FK-TS Scorewas developed and its performance characteristics determinedby [employer]. It has not been cleared or approved by the Foodand Drug Administration.PATIENT WAS FASTINGPERFORMED BY: MitraSpan[address] [id number] BY: [employer] [place]6[address] [facility] [id number] Monocytes (Bld) [#/Vol] 0.5 {x10E3/uL} Normal 0.1-0.9 [facility] Work Phone: Comment on above: Test(s) 840393-PSZ-R ; 683469-GLM-Y; 111382-CBA-Q; 140601-Jbwipnwxrqdvh; 034021-Fdryiqjvpwe, Total; 167565-PRL-I (Total);127879-Naueo LDL-P; 930979-SAJ Size; 514847-WG-JM Scorewas developed and its performance characteristics determinedby [employer]. It has not been cleared or approved by the Foodand Drug Administration.PATIENT WAS FASTINGPERFORMED BY: Begun[address] [id number] BY: BegunInspira Medical Center VinelandFiozok1250 [facility] [id number] Monocytes (Bld) [#/Vol] 0.5 10*3/uL Normal 0.1-0.9 [facility]; [facility] Work Phone: Monocytes/100 WBC (Bld) 7 % Normal [facility] Work Phone: Comment on above: Test(s) 621606-VYQ-U ; 622178-WLL-E; 490716-KBU-F; 148591-Rmdttpjtmlqjd; 310574-Wcyeevaphme, Total; 109719-YTS-T (Total);617577-Fjnjw LDL-P; 814136-XFN Size; 785270-TR-LZ Scorewas developed and its performance characteristics determinedby [employer]. It has not been cleared or approved by the Foodand Drug Administration.PATIENT WAS FASTINGPERFORMED BY: [employer] [address] [id number] BY: BegunInspira Medical Center VinelandXijvgg3342 [facility] [id number] Neutrophils (Bld) [#/Vol] 5.5 {x10E3/uL} Normal 1.4-7.0 [facility] Work Phone: Comment on above: Test(s) 962109-ZHA-I ; 867528-KTW-A; 424421-IVR-J; 552000-Sgcobszmvpynl; 656650-Srqapxglfgd, Total; 763713-NIT-X (Total);447623-Ftath LDL-P; 321640-IRE Size; 023982-NS-FP Scorewas developed and its performance characteristics determinedby [employer]. It has not been cleared or approved by the Foodand Drug Administration.PATIENT WAS FASTINGPERFORMED BY: BN [facility] [address] [place] [id number] BY: BegunInspira Medical Center VinelandMyocdo9971 [facility] [id number] Neutrophils (Bld) [#/Vol] 5.5 10*3/uL Normal 1.4-7.0 [facility]; [facility] Work Phone: Neutrophils/100 WBC (Bld) 68 % Normal [facility] Work Phone: Comment on above: Test(s) 477988-DUL-D ; 683890-GXB-W; 440549-XNS-Q; 978767-Gtnrdumepmkzc; 480854-Djhogcdqqbd, Total; 414603-ADG-J (Total);659606-Abdll LDL-P; 882248-MAL Size; 960121-SK-DN Scorewas developed and its performance characteristics determinedby [employer]. It has not been cleared or approved by the Foodand Drug Administration.PATIENT WAS FASTINGPERFORMED BY: [employer] [id number] BY: [employer]6370 [facility] [id number] Platelets (Bld) [#/Vol] 204 {x10E3/uL} Normal 150-450 [facility] Work Phone: Comment on above: Test(s) 226827-EOX-D ; 433305-RTI-D; 885905-TRO-A; 259715-Nnopskasztmcv; 435027-Pbpdzqtjpya, Total; 238978-HGZ-O (Total);094859-Zlqtz LDL-P; 085064-NIR Size; 893904-JR-NS Scorewas developed and its performance characteristics determinedby [employer]. It has not been cleared or approved by the Foodand Drug Administration.PATIENT WAS FASTINGPERFORMED BY: [employer] [address] [id number] BY: BegunInspira Medical Center VinelandWhmznd9181 [facility] [id number] Platelets (Bld) [#/Vol] 204 10*3/uL Normal 150-450 [facility]; [facility] Work Phone: RBC (Bld) [#/Vol] 4.57 {x10E6/uL} Normal 4.14-5.80 [facility] Internal Medicine Work Phone: Comment on above: Test(s) 856253-LIH-S ; 058531-AGY-L; 423088-RBE-R; 327352-Jiakeyyirzwjt; 325596-Zfelfkfvfpr, Total; 306721-KGH-P (Total);727964-Prdek LDL-P; 167215-QMZ Size; 491455-BD-LF Scorewas developed and its performance characteristics determinedby [employer]. It has not been cleared or approved by the Foodand Drug Administration.PATIENT WAS FASTINGPERFORMED BY: MitraSpan[address] [id number] BY: [employer] [facility] [id number] RBC (Bld) [#/Vol] 4.57 10*6/uL Normal 4.14-5.80 [facility]; [facility] Work Phone: WBC (Bld) [#/Vol] 8.0 {x10E3/uL} Normal 3.4-10.8 [facility] Internal Medicine Work Phone: Comment on above: Test(s) 879384-MRU-D ; 136514-LAS-H; 016291-PQN-V; 748433-Rahrzhaocqpyi; 969119-Qzxsogsxopw, Total; 329546-BPQ-X (Total);835800-Gbioy LDL-P; 919629-VYY Size; 879123-KX-RS Scorewas developed and its performance characteristics determinedby [employer]. It has not been cleared or approved by the Foodand Drug Administration.PATIENT WAS FASTINGPERFORMED BY: MitraSpan[address] [id number] BY: [employer] [place] [place] [facility] GladwinCardiovascular SimulationFirstHealth [facility] [id number] WBC (Bld) [#/Vol] 8.0 10*3/uL Normal 3.4-10.8 [facility]; [facility] Work Phone: METABOLIC PANEL, COMPREHENSI VE ([phone])Ordered By: Piggery Worker on 02-20-2020 Albumin [Mass/Vol] 4.4 g/dL Normal 3.6-4.6 [facility] Internal Medicine Work Phone: Comment on above: Test(s) 298532-XYT-Q ; 220320-WUK-E; 978365-CWH-C; 332790-Ihdfqrwqbdxcu; 020360-Omaumonlupu, Total; 128159-XNS-H (Total);344095-Jrwho LDL-P; 490247-DSD Size; 007320-PL-BR Scorewas developed and its performance characteristics determinedby [employer]. It has not been cleared or approved by the Foodand Drug Administration.PATIENT WAS FASTINGPERFORMED BY: Nepris[address] [place] [address] [id number] BY: [employer] [place] [id number] Albumin/Globulin [Mass ratio] 1.9 {ratio} Normal 1.2-2.2 [facility] Work Phone: Comment on above: Test(s) 470396-KAM-Q ; 734540-TKX-A; 745928-IYL-Q; 836521-Hwhiduwhijadp; 235154-Gfjjcgtqdxw, Total; 713557-NLH-P (Total);453597-Pgpro LDL-P; 535522-SKI Size; 824693-OA-XC Scorewas developed and its performance characteristics determinedby [employer]. It has not been cleared or approved by the Foodand Drug Administration.PATIENT WAS FASTINGPERFORMED BY: MitraSpan[address] [id number] BY: [employer]70 [employer] [place] [id number] ALP [Catalytic activity/Vol] 127 [iU]/L Abnormal 39-117 [facility] Work Phone: Comment on above: Test(s) 071087-FWI-W ; 866996-JRW-V; 426771-GRG-Z; 388397-Omkrreladdedy; 188782-Kcsfslnxvue, Total; 873959-VML-S (Total);120565-Cvtjv LDL-P; 945426-OJZ Size; 724624-YN-NH Scorewas developed and its performance characteristics determinedby [employer]. It has not been cleared or approved by the Foodand Drug Administration.PATIENT WAS FASTINGPERFORMED BY: Begun[address] [id number] BY: [employer]70 [facility] [id number] ALP [Catalytic activity/Vol] 127 U/L Abnormal 39-117 [facility]; [facility] Work Phone: ALT [Catalytic activity/Vol] 9 [iU]/L Normal 0-44 [facility] Work Phone: Comment on above: Test(s) 126941-CLN-F ; 823829-RIE-P; 375026-ZTQ-Z; 137620-Lggbymzeetqlv; 494566-Cvwoervfnmz, Total; 464668-JPW-V (Total);539638-Wlvrw LDL-P; 253226-BIE Size; 363080-VA-AC Scorewas developed and its performance characteristics determinedby [employer]. It has not been cleared or approved by the Foodand Drug Administration.PATIENT WAS FASTINGPERFORMED BY: Begun[address] [id number] BY: BegunCibola General HospitalNjkrrw7848 [facility] [id number] ALT [Catalytic activity/Vol] 9 U/L Normal 0-44 [facility]; [facility] Work Phone: AST [Catalytic activity/Vol] 21 [iU]/L Normal 0-40 [facility] Work Phone: Comment on above: Test(s) 588086-FXS-U ; 153734-CHT-C; 214591-HKI-G; 258186-Kegapyrqiycay; 384436-Cyuxggualdj, Total; 275536-VRB-U (Total);714541-Zocbr LDL-P; 848693-WEZ Size; 468417-GN-YX Scorewas developed and its performance characteristics determinedby [employer]. It has not been cleared or approved by the Foodand Drug Administration.PATIENT WAS FASTINGPERFORMED BY: [employer] [address] [id number] BY: BegunInspira Medical Center VinelandZdxhet8922 [facility] [id number] AST [Catalytic activity/Vol] 21 U/L Normal 0-40 [facility]; [facility] Work Phone: Bilirubin [Mass/Vol] 1.3 mg/dL Abnormal 0.0-1.2 [facility] Work Phone: Comment on above: Test(s) 271179-CBC-R ; 144457-GMZ-G; 909765-BJV-W; 975386-Ztlrqprgmpczo; 567764-Yyzdnwsljru, Total; 030939-DRJ-A (Total);976172-Horsr LDL-P; 499742-BRX Size; 776950-OY-VH Scorewas developed and its performance characteristics determinedby [employer]. It has not been cleared or approved by the Foodand Drug Administration.PATIENT WAS FASTINGPERFORMED BY: [employer] [address] [id number] BY: [employer] Kpyjeo6367 [facility] [id number] Calcium [Mass/Vol] 9.0 mg/dL Normal 8.6-10.2 [facility] Internal Medicine Work Phone: Comment on above: Test(s) 362575-DDU-J ; 243698-YBO-L; 933789-LME-U; 710221-Spedjbcqqkzfu; 537415-Orzkymesfls, Total; 592751-XGD-A (Total);468604-Fnqfq LDL-P; 058825-BLS Size; 901877-KZ-SN Scorewas developed and its performance characteristics determinedby [employer]. It has not been cleared or approved by the Foodand Drug Administration.PATIENT WAS FASTINGPERFORMED BY: [employer] [address] [id number] BY: [employer] [place]6[address] [facility] Check CardFirstHealth Montgomery [facility] Hospital [id number] Chloride [Moles/Vol] 107 mmol/L Abnormal 96-106 [facility] Internal Medicine Work Phone: Comment on above: Test(s) 820924-XOV-J ; 193697-FFL-B; 712718-RMO-W; 478253-Aaahitxfxgwjr; 841753-Blmkpydwvri, Total; 961815-WDO-E (Total);087091-Gegbf LDL-P; 975420-ZDS Size; 329140-ZN-PK Scorewas developed and its performance characteristics determinedby [employer]. It has not been cleared or approved by the Foodand Drug Administration.PATIENT WAS FASTINGPERFORMED BY: MitraSpan[address] [id number] BY: [employer] [place] Cash Check CardFirstHealth Montgomery Memorial Hospital [id number] CO2 [Moles/Vol] 21 mmol/L Normal 20-29 [facility] Internal Medicine Work Phone: Comment on above: Test(s) 446716-NKG-G ; 244866-IXJ-A; 391563-RZQ-D; 024216-Stecioxwogliw; 666003-Hhzualxdolm, Total; 435619-OTV-C (Total);972345-Uraxo LDL-P; 351578-TCC Size; 876414-ML-RF Scorewas developed and its performance characteristics determinedby [employer]. It has not been cleared or approved by the Foodand Drug Administration.PATIENT WAS FASTINGPERFORMED BY: [employer] [address] [id number] BY: [employer] [place]6370 [facility] [id number] Creatinine [Mass/Vol] 1.12 mg/dL Normal 0.76-1.27 [facility] Internal Medicine Work Phone: Comment on above: Test(s) 962734-IHO-W ; 270657-NJO-U; 773278-WDF-C; 630282-Wuaimqkikossj; 651544-Xutbtkpkqar, Total; 071422-RHE-M (Total);646722-Ywuhe LDL-P; 795956-ZJM Size; 219062-DP-TS Scorewas developed and its performance characteristics determinedby [employer]. It has not been cleared or approved by the Foodand Drug Administration.PATIENT WAS FASTINGPERFORMED BY: [employer] [address] [id number] BY: BegunThomas Ville 8443770 [facility] [id number] GFR/1.73 sq M predicted among blacks CKD-EPI (S/P/Bld) [Vol rate/Area] 70 mL/min/1.73 Normal [facility] Work Phone: Comment on above: Test(s) 938446-QAU-D ; 868050-UKA-E; 116412-XWT-N; 776867-Hsydxwlnpwlse; 801036-Thrmelktbnv, Total; 408206-ASE-P (Total);521631-Xfkvq LDL-P; 598649-TMF Size; 810195-TV-NU Scorewas developed and its performance characteristics determinedby [employer]. It has not been cleared or approved by the Foodand Drug Administration.PATIENT WAS FASTINGPERFORMED BY: [employer] [address] [id number] BY: BegunInspira Medical Center VinelandVmendv4200 [facility] [id number] GFR/1.73 sq M predicted among non-blacks CKD-EPI (S/P/Bld) [Vol rate/Area] 61 mL/min/1.73 Normal [facility] Work Phone: Comment on above: Test(s) 464474-OTJ-I ; 082786-DBH-U; 827063-ZIU-I; 640067-Aqcfubxcbmfhs; 308108-Akqedcpjqlr, Total; 108635-SSR-J (Total);505089-Mthgk LDL-P; 891008-NAJ Size; 248920-TC-SW Scorewas developed and its performance characteristics determinedby [employer]. It has not been cleared or approved by the Foodand Drug Administration.PATIENT WAS FASTINGPERFORMED BY: [employer] [address] [id number] BY: BegunInspira Medical Center VinelandFunmrt1758 [facility] [id number] Globulin (S) [Mass/Vol] 2.3 g/dL Normal 1.5-4.5 [facility] Work Phone: Comment on above: Test(s) 997241-FOV-J ; 647325-JND-L; 051117-UGS-Q; 317686-Jtrbmpbebanqc; 712061-Sbwybtystay, Total; 248972-WCW-G (Total);622830-Faspo LDL-P; 712267-BXQ Size; 371345-HK-ZN Scorewas developed and its performance characteristics determinedby [employer]. It has not been cleared or approved by the Foodand Drug Administration.PATIENT WAS FASTINGPERFORMED BY: [employer] [address] [id number] BY: [employer] [place]6370 [facility] [id number] Glucose [Mass/Vol] 115 mg/dL Abnormal 65-99 [facility] Internal Medicine Work Phone: Comment on above: Test(s) 907776-LDH-V ; 793334-FHJ-X; 884243-ZJU-U; 032763-Bdqzjlvcrlczs; 461629-Hspuoowzzhe, Total; 213076-EDQ-O (Total);116632-Dkgnq LDL-P; 552129-VOJ Size; 980490-HG-ZQ Scorewas developed and its performance characteristics determinedby [employer]. It has not been cleared or approved by the Foodand Drug Administration.PATIENT WAS FASTINGPERFORMED BY: [employer] [address] [id number] BY: ATEME Mrvmgf6063 [facility] [id number] Potassium [Moles/Vol] 4.3 mmol/L Normal 3.5-5.2 [facility] Internal Medicine Work Phone: Comment on above: Test(s) 589340-XOB-U ; 975794-EWE-L; 752128-NTD-X; 485676-Gxyfpjqhfjvca; 838000-Kvsunuuvqpu, Total; 230556-PYM-I (Total);302718-Hlgcz LDL-P; 331263-ZML Size; 189849-ZY-DS Scorewas developed and its performance characteristics determinedby [employer]. It has not been cleared or approved by the Foodand Drug Administration.PATIENT WAS FASTINGPERFORMED BY: [employer] [address] [id number] BY: [employer] Yrwftr1056 [facility] [id number] Protein [Mass/Vol] 6.7 g/dL Normal 6.0-8.5 [facility] Internal Medicine Work Phone: Comment on above: Test(s) 043113-FJJ-C ; 655835-EMU-V; 513918-CNO-O; 826322-Cqgxcgwuhejvn; 929400-Bbmpcrxjsna, Total; 008309-PWD-J (Total);507448-Jooai LDL-P; 136846-AQN Size; 379473-IV-HK Scorewas developed and its performance characteristics determinedby [employer]. It has not been cleared or approved by the Foodand Drug Administration.PATIENT WAS FASTINGPERFORMED BY: [employer] [address] [id number] BY: [employer] Zziozb0945 [facility] [id number] Sodium [Moles/Vol] 143 mmol/L Normal 134-144 [facility] Internal Medicine Work Phone: Comment on above: Test(s) 215578-WXU-P ; 921285-SEU-O; 376832-XRN-A; 386729-Ctnglpqajvuju; 705978-Ycjbitcyrxd, Total; 368264-WBQ-B (Total);984010-Fletp LDL-P; 509491-UQE Size; 441977-ZK-CF Scorewas developed and its performance characteristics determinedby [employer]. It has not been cleared or approved by the Foodand Drug Administration.PATIENT WAS FASTINGPERFORMED BY: [employer] [address] [id number] BY: [employer] [place]6[address] [facility] [id number] Urea nitrogen [Mass/Vol] 21 mg/dL Normal 05-22 [facility] Work Phone: Comment on above: Test(s) 867324-TRD-E ; 197827-BOQ-G; 853704-YSA-T; 924632-Ylmabtpilbsvu; 159068-Fcnaoyyeeyc, Total; 107321-TNC-J (Total);137007-Kskzs LDL-P; 594062-WOG Size; 726612-MJ-AB Scorewas developed and its performance characteristics determinedby [employer]. It has not been cleared or approved by the Foodand Drug Administration.PATIENT WAS FASTINGPERFORMED BY: MitraSpan[address] [id number] BY: [employer] [place]6[address] [facility] [id number] Urea nitrogen/Creatinine [Mass ratio] 19 mg/mg Normal 07-19 [facility] Work Phone: Comment on above: Test(s) 090352-PEN-K ; 907971-DOF-S; 617588-ITS-J; 202724-Ecokfoytjacfo; 326268-Lduqxuodgjo, Total; 583603-LPW-D (Total);602213-Qaykl LDL-P; 508916-QPC Size; 019665-FZ-LQ Scorewas developed and its performance characteristics determinedby [employer]. It has not been cleared or approved by the Foodand Drug Administration.PATIENT WAS FASTINGPERFORMED BY: [employer] [address] [id number] BY: [employer] [place]6[address] [facility] [id number] MICROALBUMINOrdered By: Syst em Wharf Operator on 02-20-2020 Albumin DL <= 20 mg/L (U) [Mass/Vol] 43.4 ug/mL Normal [facility] Work Phone: Comment on above: Test(s) 000437-KSM-W ; 981862-QKV-B; 630673-GBZ-Q; 263029-Evnantqbqvcxf; 340317-Asgywybfmrh, Total; 760997-OJK-J (Total);001546-Ssing LDL-P; 423347-QDT Size; 433667-KW-BL Scorewas developed and its performance characteristics determinedby [employer]. It has not been cleared or approved by the Foodand Drug Administration.PATIENT WAS FASTINGPERFORMED BY: [employer] [address] [id number] BY: [employer] [address] [place] [address] [id number] Albumin/Creatinine (U) [Mass ratio] 14 {mg/g_creat} Normal 0-29 [facility] Work Phone: Comment on above: Normal: 0 - 29 Moder ately increased: 30 - 300 Severely increased: >300 Please note reference interval change Test(s) 448693-ATN-C ; 376965-CVY-W; 924345-EJP-D; 534628-Joqbymxpurhcl; 472738-Muwgyrphabo, Total; 050858-XTI-Q (Total);296564-Oslok LDL-P; 259933-SBX Size; 101749-OX-LX Scorewas developed and its performance characteristics determinedby [employer]. It has not been cleared or approved by the FoodEyenalyze Drug Administration.PATIENT WAS FASTINGPERFORMED BY: [employer] [address] [id number] BY: [employer]70 [facility] [id number] Creatinine (U) [Mass/Vol] 316.8 mg/dL Normal [facility] Work Phone: Comment on above: Test(s) 110613-PDC-B ; 448851-AYR-L; 092889-GDO-L; 223650-Rjurjztlwymqe; 980630-Scfjsnkctik, Total; 655133-AHG-E (Total);902158-Nqtfk LDL-P; 294296-LNI Size; 380989-VZ-SB Scorewas developed and its performance characteristics determinedby [employer]. It has not been cleared or approved by the Foodand Drug Administration.PATIENT WAS FASTINGPERFORMED BY: Foodfly [place] [address] [facility] [id number] BY: [employer] [place] [facility]oustoAt[facility] Health [facility] [id number] NMR Profile (37021)Ordered B y: Piggery Worker on 02-20-2020 Cholesterol [Mass/Vol] 108 mg/dL Normal 100-199 [facility] Work Phone: Comment on above: Test(s) 366888-GDC-B ; 894173-NGB-C; 257352-LIV-O; 882224-Yiexndusimfce; 102964-Acpwtnruxej, Total; 831710-EIT-B (Total);246884-Fogzz LDL-P; 744068-GDB Size; 543844-PH-CT Scorewas developed and its performance characteristics determinedby [employer]. It has not been cleared or approved by the Foodand Drug Administration.PATIENT WAS FASTINGPERFORMED BY: MitraSpan[address] [id number] BY: [employer]70 [facility] [id number] Lipoprotein.alpha [Moles/Vol] 25.4 umol/L Abnormal [facility] Work Phone: Comment on above: Test(s) 660951-OXA-F ; 640419-DFE-J; 623239-ATG-O; 083505-Xntoehurlggyq; 492414-Pbjlbaayjgi, Total; 474408-IYO-S (Total);552668-Bajmr LDL-P; 108437-WVT Size; 852226-FM-WE Scorewas developed and its performance characteristics determinedby [employer]. It has not been cleared or approved by the Foodand Drug Administration.PATIENT WAS FASTINGPERFORMED BY: [employer] [address] [id number] BY: [employer] [place]6370 [facility] [id number] Lipoprotein.beta.subp article [Entitic length] 20.6 nm Normal [...] not afterLDL-P is taken into account. Test(s) 074917-LHD-X ; 551204-WPY-R; 581883-VQY-N; 633095-Dywchcpgyisbx; 098479-Zjyajzdzxir, Total; 860448-DQV-K (Total);186995-Zocvv LDL-P; 684647-KEU Size; 996692-TF-TJ Scorewas developed and its performance characteristics determinedby [employer]. It has not been cleared or approved by the Foodand Drug Administration.PATIENT WAS FASTINGPERFORMED BY: [employer] [address] [id number] BY: [employer] [facility] OrthopaedicsInspira Medical Center VinelandIcipua9611 [facility] [id number] Lipoprotein.beta.subp article [Moles/Vol] 734 nmol/L Normal Comprehensiv e Internal Medicine Work Phone: Comment on above: Low < 1000 Moderate 1000 - 1299 Borderline-High 1300 - 1599 High 1600 - 2000 Very High > 2000 Test(s) 172475-YPF-Q ; 362836-PWG-B; 392867-DMQ-R; 947173-Rnnncsesdhrea; 452327-Jvpwvrngicm, Total; 354427-JCK-V (Total);654841-Fmggp LDL-P; 810404-EGJ Size; 323243-YZ-RW Scorewas developed and its performance characteristics determinedby [employer]. It has not been cleared or approved by the Foodand Drug Administration.PATIENT WAS FASTINGPERFORMED BY: Foodfly [address] [id number] BY: [employer] [facility]ovusFirst[facility] [id number] Lipoprotein.beta.subp article.small [Moles/Vol] 289 nmol/L Normal [facility] Work Phone: Comment on above: Test(s) 375167-APP-M ; 164763-TIN-Q; 677752-DAU-W; 889957-Twrwzedzoxuzv; 600693-Pvvfddvcuor, Total; 639190-ZGK-X (Total);569480-Kozhq LDL-P; 454319-JGZ Size; 829686-ZT-PT Scorewas developed and its performance characteristics determinedby [employer]. It has not been cleared or approved by the Foodand Drug Administration.PATIENT WAS FASTINGPERFORMED BY: [employer] [address] [id number] BY: [employer] [place] DiagnovusFirstHealth Montgomery [facility] [id number] Triglyceride [Mass/Vol] 62 mg/dL Normal 0-149 [facility] Work Phone: Comment on above: Test(s) 603071-NZP-F ; 698745-DMJ-F; 641091-GOQ-W; 818580-Bbmjlzzlrsucv; 165584-Hsghxhcvjst, Total; 103595-WOD-W (Total);363372-Bbtlh LDL-P; 870443-GZD Size; 681856-HL-XN Scorewas developed and its performance characteristics determinedby [employer]. It has not been cleared or approved by the Foodand Drug Administration.PATIENT WAS FASTINGPERFORMED BY: [employer]fly [address] [id number] BY: [employer]70 [place] DiagnovusFirstHealth [facility] [id number] NMR Profile (56213) 33 mg/dL Abnormal [facility] Internal Medicine Work Phone: Comment on above: Test(s) 057252-JLC-A ; 672387-XEU-P; 555675-KEG-P; 007616-Qcfikjwfeckav; 960221-Qgqjdvnhuaa, Total; 203073-MOO-C (Total);710508-Wwzad LDL-P; 642374-IFL Size; 705337-MF-CK Scorewas developed and its performance characteristics determinedby [employer]. It has not been cleared or approved by the Foodand Drug Administration.PATIENT WAS FASTINGPERFORMED BY: MitraSpan[address] [id number] BY: [employer]70 [facility] [id number] NMR Profile (72612) 63 mg/dL Normal 0-99 [facility] Internal Medicine Work Phone: Comment on above: . Optimal < 100 Abov e optimal 100 - 129 Borderline 130 - 159 High 160 - 189 Very high > 189 .LDL-C is inaccurate if patient is non-fasting. Test(s) 649926-EDD-M ; 554118-TIR-I; 530141-FRP-Y; 640161-Dcystjoozugxj; 911412-Khjtftfison, Total; 866574-EBI-J (Total);792681-Yzujl LDL-P; 925589-KAB Size; 767494-NU-QS Scorewas developed and its performance characteristics determinedby [employer]. It has not been cleared or approved by the Foodand Drug Administration.PATIENT WAS FASTINGPERFORMED BY: Foodfly [address] [id number] BY: ATEME Mnkdjr3897 [facility] [id number] NMR Profile (63995) 62 mg/dL Normal 0-149 [facility]; [facility] Work Phone: NMR Profile (43137) 108 mg/dL Normal 100-199 [facility] Internal Medicine; [facility] Work Phone: TSH (THYROID STIMULATING HOR FAWN) (93147)Ordered By: Piggery Worker on 02-20-2020 TSH Qn 2.000 {uIU/mL} Normal 0.450-4.50 0 [facility] Work Phone: Comment on above: Test(s) 481750-DRS-I ; 350169-WPY-A; 560550-WLS-J; 201093-Wckvxizwjdgdm; 167368-Hooahfyulls, Total; 963317-MYY-M (Total);240577-Gonab LDL-P; 895227-SSO Size; 306894-GT-EX Scorewas developed and its performance characteristics determinedby [employer]. It has not been cleared or approved by the Foodand Drug Administration.PATIENT WAS FASTINGPERFORMED BY: Begun[address] [id number] BY: BegunInspira Medical Center VinelandUofkvt1186 [facility] [id number] Blood Glucose , Office (4496 2)Ordered By: Marilynn Chanel on 08-29-2019 Glucose Glucometer (BldC) [Moles/Vol] 120 1 Normal [facility] Work Phone: HgA1C , Office (81996)Ordere d By: Marilynn Chanel on 08-29-2019 HbA1c (Bld) [Mass fraction] 6.0 % Normal 4.6 - 7.1 [facility] Work Phone: CBC W/AUTO DIFF WBC (93804)O rdered By: Piggery Worker on 03-22-2018 Basophils #/vol (Bld) 0.0 {x10E3/uL} Normal 0.0-0.2 [facility] Work Phone: Comment on above: PATIENT WAS FASTINGP ERFORMED BY: BegunInspira Medical Center VinelandMgeqhk9181 [facility] [id number] Basophils (Bld) [#/Vol] 0.0 10*3/uL Normal 0.0-0.2 [facility]; [facility] Work Phone: Basophils Auto #/vol (Bld) 0.0 {x10E3/uL} Normal 0.0-0.2 [facility] Work Phone: Basophils/100 WBC (Bld) 0 % Normal [facility] Work Phone: Comment on above: PATIENT WAS FASTINGP ERFORMED BY: BegunInspira Medical Center VinelandDcfqdx0284 [facility] [id number] Basophils/100 WBC Auto (Bld) 0 % Normal [facility] Work Phone: Eosinophils #/vol (Bld) 0.1 {x10E3/uL} Normal 0.0-0.4 [facility] Work Phone: Comment on above: PATIENT WAS FASTINGP ERFORMED BY: CIERRA BegunCibola General HospitalZixilv4243 [facility] [id number] Eosinophils (Bld) [#/Vol] 0.1 10*3/uL Normal 0.0-0.4 [facility]; [facility] Work Phone: Eosinophils Auto #/vol (Bld) 0.1 {x10E3/uL} Normal 0.0-0.4 [facility] Work Phone: Eosinophils/100 WBC (Bld) 2 % Normal [facility] Work Phone: Comment on above: PATIENT WAS FASTINGP ERFORMED BY: BegunInspira Medical Center VinelandNywtxq3306 [facility] [id number] Eosinophils/100 WBC Auto (Bld) 2 % Normal [facility] Work Phone: Erythrocyte distribution width Auto Ratio (RBC) 13.9 % Normal 12.3-15.4 [facility] Work Phone: Erythrocyte distribution width Ratio (RBC) 13.9 % Normal 12.3-15.4 [facility] Work Phone: Comment on above: PATIENT WAS FASTINGP ERFORMED BY: BegunInspira Medical Center VinelandExdccc2538 [facility] [id number] Hematocrit Auto Volume Fraction (Bld) 38.9 % Normal 37.5-51.0 Comprehens shawn Internal Medicine Work Phone: Hematocrit Volume Fraction (Bld) 38.9 % Normal 37.5-51.0 [facility] Work Phone: Comment on above: PATIENT WAS FASTINGP ERFORMED BY: CIERRA TejaSt. Louis Va Medical Center Fxlvzy5014 [facility] [id number] Hemoglobin mass conc (Bld) 12.8 g/dL Abnormal 13.0-17.7 [facility] Work Phone: Comment on above: PATIENT WAS FASTINGP ERFORMED BY: [address] [id number] Immature granulocytes #/vol (Bld) 0.0 {x10E3/uL} Normal 0.0-0.1 [facility] Work Phone: Comment on above: PATIENT WAS FASTINGP ERFORMED BY: CIERRA [address] [id number] Immature granulocytes (Bld) [#/Vol] 0.0 10*3/uL Normal 0.0-0.1 [facility]; [facility] Work Phone: Immature granulocytes/100 WBC (Bld) 0 % Normal [facility] Work Phone: Comment on above: PATIENT WAS FASTINGP ERFORMED BY: Teja[address] [id number] Lymphocytes #/vol (Bld) 1.4 {x10E3/uL} Normal 0.7-3.1 [facility] Work Phone: Comment on above: PATIENT WAS FASTINGP ERFORMED BY: [address] [id number] Lymphocytes (Bld) [#/Vol] 1.4 10*3/uL Normal 0.7-3.1 [facility]; [facility] Work Phone: Lymphocytes Auto #/vol (Bld) 1.4 {x10E3/uL} Normal 0.7-3.1 [facility] Work Phone: Lymphocytes/100 WBC (Bld) 21 % Normal [facility] Work Phone: Comment on above: PATIENT WAS FASTINGP ERFORMED BY: [facility]6370 [facility] [id number] Lymphocytes/100 WBC Auto (Bld) 21 % Normal [facility] Work Phone: MCH Auto Entitic mass (RBC) 30.4 pg Normal 26.6-33.0 [facility] Work Phone: MCH Entitic mass (RBC) 30.4 pg Normal 26.6-33.0 [facility] Work Phone: Comment on above: PATIENT WAS FASTINGP ERFORMED BY: [place] 6695570 [facility] [id number] MCHC Auto mass conc (RBC) 32.9 g/dL Normal 31.5-35.7 [facility] Work Phone: MCHC mass conc (RBC) 32.9 g/dL Normal 31.5-35.7 [facility] Work Phone: Comment on above: PATIENT WAS FASTINGP ERFORMED BY: [place] 6695570 [facility] [id number] MCV Auto Entitic volume (RBC) 92 fL Normal 79-97 [facility] Work Phone: MCV Entitic volume (RBC) 92 fL Normal 79-97 [facility] Work Phone: Comment on above: PATIENT WAS FASTINGP ERFORMED BY: [place] 6695570 [facility] [id number] Monocytes #/vol (Bld) 0.5 {x10E3/uL} Normal 0.1-0.9 [facility] Work Phone: Comment on above: PATIENT WAS FASTINGP ERFORMED BY: [place] 6695570 [facility] [id number] Monocytes (Bld) [#/Vol] 0.5 10*3/uL Normal 0.1-0.9 [facility]; [facility] Work Phone: Monocytes Auto #/vol (Bld) 0.5 {x10E3/uL} Normal 0.1-0.9 [facility] Work Phone: Monocytes/100 WBC (Bld) 8 % Normal [facility] Work Phone: Comment on above: PATIENT WAS FASTINGP ERFORMED BY: CIERRA [employer] Jkuscq17[address] [facility]in [place] [id number] Monocytes/100 WBC Auto (Bld) 8 % Normal [facility] Work Phone: Morphology Interp Priyank (Bld) Note: Normal [facility] Work Phone: Comment on above: Verified by microsco pic examination. PATIENT WAS FASTINGP ERFORMED BY: CIERRA [employer] Zddvxt7[address] [facility] [id number] Neutrophils #/vol (Bld) 4.7 {x10E3/uL} Normal 1.4-7.0 [facility] Work Phone: Comment on above: PATIENT WAS FASTINGP ERFORMED BY: [employer] Hbapcn9404 [facility] [id number] Neutrophils (Bld) [#/Vol] 4.7 10*3/uL Normal 1.4-7.0 [facility]; [facility] Work Phone: Neutrophils Auto #/vol (Bld) 4.7 {x10E3/uL} Normal 1.4-7.0 [facility] Work Phone: Neutrophils/100 WBC (Bld) 69 % Normal [facility] Work Phone: Comment on above: PATIENT WAS FASTINGP ERFORMED BY: [employer] Wiulsl4528 [facility] [id number] Neutrophils/100 WBC Auto (Bld) 69 % Normal [facility] Work Phone: Platelets #/vol (Bld) 162 {x10E3/uL} Normal 150-379 [facility] Work Phone: Comment on above: PATIENT WAS FASTINGP ERFORMED BY: [employer] Haqsma1746 [address] [facility] [id number] Platelets (Bld) [#/Vol] 162 10*3/uL Normal 150-379 [facility]; [facility] Work Phone: Platelets Auto #/vol (Bld) 162 {x10E3/uL} Normal 150-379 [facility] Work Phone: RBC #/vol (Bld) 4.21 {x10E6/uL} Normal 4.14-5.80 Comp [facility] centerensive Internal Medicine Work Phone: Comment on above: PATIENT WAS FASTINGP ERFORMED BY: CIERRA Ellis6370 [facility] [id number] RBC (Bld) [#/Vol] 4.21 10*6/uL Normal 4.14-5.80 Compr [facility] Internal [facility]; [facility] Work Phone: RBC Auto #/vol (Bld) 4.21 {x10E6/uL} Normal 4.14-5.80 [facility] Work Phone: WBC #/vol (Bld) 6.8 {x10E3/uL} Normal 3.4-10.8 [facility] Internal Medicine Work Phone: Comment on above: PATIENT WAS FASTINGP ERFORMED BY: CIERRA Shieldslin6370 [facility] [id number] WBC (Bld) [#/Vol] 6.8 10*3/uL Normal 3.4-10.8 [facility]; [facility] Work Phone: WBC Auto #/vol (Bld) 6.8 {x10E3/uL} Normal 3.4-10.8 [facility] Work Phone: LIPID PANEL (21465)Ordered B y: Piggery Worker on 03-22-2018 Cholesterol in HDL mass conc 38 mg/dL Abnormal [facility] Work Phone: Comment on above: PATIENT WAS FASTINGP ERFORMED BY: CIERRA Shieldslin6370 [facility] [id number] Cholesterol in LDL mass conc 57 mg/dL Normal 0-99 [facility] Work Phone: Comment on above: PATIENT WAS FASTINGP ERFORMED BY: CB [facility] Elcqmp7914 [address] Roadblin [place] [id number] Cholesterol in LDL/Cholesterol in HDL mass ratio 1.5 {ratio} Normal 0.0-3.6 [facility] Work Phone: Comment on above: LDL/HDL Ratio Men Wo men 1/2 Avg.Risk 1.0 1.5 Avg.Risk 3.6 3.2 2X Avg.Risk 6.2 5.0 3X Avg.Risk 8.0 6.1 PATIENT WAS FASTINGP ERFORMED BY: [facility] Ynkost3549 [address] Roadblin [place] [id number] Cholesterol in VLDL mass conc 10 mg/dL Normal 5-40 [facility] Work Phone: Comment on above: PATIENT WAS FASTINGP ERFORMED BY: [facility] Mbiyna1215 [address] [facility]in [place] [id number] Cholesterol mass conc 105 mg/dL Normal 100-199 [facility] prehensive Internal Medicine Work Phone: Comment on above: PATIENT WAS FASTINGP ERFORMED BY: [employer] Dzhnnt8466 [address] [facility] Hospitalblin [place] [id number] Triglyceride mass conc 50 mg/dL Normal 0-149 [facility] Work Phone: Comment on above: PATIENT WAS FASTINGP ERFORMED BY: [employer] Xqrbde1376 [address] [facility]in [place] [id number] METABOLIC PANEL, COMPREHENSI VE (48932)Ordered By: Piggery Worker on 03-22-2018 Albumin mass conc 4.0 g/dL Normal 3.5-4.7 Compreh ensive Internal Medicine Work Phone: Comment on above: PATIENT WAS FASTINGP ERFORMED BY: [facility] Wppxbt1047 [address]y RoadDublin [place] [id number] Albumin/Globulin mass ratio 1.7 {ratio} Normal 1.2-2.2 [facility] Work Phone: Comment on above: PATIENT WAS FASTINGP ERFORMED BY: [facility] Iogpfh3895 [address]y RoadDublin [place] [id number] ALP [Catalytic activity/Vol] 117 U/L Normal 39-117 [facility]; [facility] Work Phone: ALP enzyme act/vol 117 [iU]/L Normal 39-117 [facility] Internal Medicine Work Phone: Comment on above: PATIENT WAS FASTINGP ERFORMED BY: CB [facility] Ynutpl7058 [address] RoadDublin [place] [id number] ALT [Catalytic activity/Vol] 14 U/L Normal 0-44 [facility]; [facility] Work Phone: ALT enzyme act/vol 14 [iU]/L Normal 0-44 [facility] Internal Medicine Work Phone: Comment on above: PATIENT WAS FASTINGP ERFORMED BY: CB [facility] Onlacp0005 [address]y RoadDublin [place] [id number] AST [Catalytic activity/Vol] 18 U/L Normal 0-40 [facility]; [facility] Work Phone: AST enzyme act/vol 18 [iU]/L Normal 0-40 [facility] Internal Medicine Work Phone: Comment on above: PATIENT WAS FASTINGP ERFORMED BY: [facility] Yijyup1382 K[address]y RoadDublin [place] [id number] Bilirubin mass conc 0.9 mg/dL Normal 0.0-1.2 [facility] Internal Medicine Work Phone: Comment on above: PATIENT WAS FASTINGP ERFORMED BY: [facility] Xarhfh8575 [address]y RoadDublin [place] [id number] Calcium mass conc 9.1 mg/dL Normal 8.6-10.2 Compreh [facility] centerive Internal Medicine Work Phone: Comment on above: PATIENT WAS FASTINGP ERFORMED BY: CB [facility] Pdsuju4392 [address] RoadDublin [place] [id number] Chloride molar conc 106 mmol/L Normal 96-106 Compr [facility] Internal Medicine Work Phone: Comment on above: PATIENT WAS FASTINGP ERFORMED BY: CB [facility] Wnpebw3128 [address] RoadDublin [place] [id number] CO2 molar conc 21 mmol/L Normal 20-29 Comprehens shawn Internal Medicine Work Phone: Comment on above: Please note refere nce interval change PATIENT WAS FASTINGP ERFORMED BY: CIERRA [facility] Valwlg4314 [address] RoadDublin [place] [id number] Creatinine mass conc 1.17 mg/dL Normal 0.76-1.27 Comp rehensive Internal Medicine Work Phone: Comment on above: PATIENT WAS FASTINGP ERFORMED BY: CB [facility] Dwerys4422 [address] RoadDublin [place] [id number] GFR/1.73 sq M predicted among blacks CKD-EPI vol rate/area (S/P/Bld) 68 mL/min/1.73 Normal Comprehensiv e Internal Medicine Work Phone: Comment on above: PATIENT WAS FASTINGP ERFORMED BY: CIERRA [facility] Djqdkq4069 [address] RoadDublin [place] [id number] GFR/1.73 sq M predicted among non-blacks CKD-EPI vol rate/area (S/P/Bld) 59 mL/min/1.73 Abnormal [facility] Work Phone: Comment on above: PATIENT WAS FASTINGP ERFORMED BY: CIERRA [facility] Lthqvo2988 Khoury RoadUnc Health Rockinghamin [place] [id number] Globulin Calculated mass conc (S) 2.4 g/dL Normal 1.5-4.5 [facility] Work Phone: Globulin mass conc (S) 2.4 g/dL Normal 1.5-4.5 [facility] Work Phone: Comment on above: PATIENT WAS FASTINGP ERFORMED BY: CIERRA [facility] Euacbf2102 [address]y RoadDublin [place] [id number] Glucose mass conc 97 mg/dL Normal 65-99 Compreh ensive Internal Medicine Work Phone: Comment on above: PATIENT WAS FASTINGP ERFORMED BY: CB [facility] Nkoaek7655 Khoury RoadDublin [place] [id number] Potassium molar conc 4.8 mmol/L Normal 3.5-5.2 Comp rehensive Internal Medicine Work Phone: Comment on above: PATIENT WAS FASTINGP ERFORMED BY: CIERRA LabCocheri Fzaaly9[address] [facility] [place] [id number] Protein mass conc 6.4 g/dL Normal 6.0-8.5 Compreh ensive Internal Medicine Work Phone: Comment on above: PATIENT WAS FASTINGP ERFORMED BY: CIERRA [facility] Pjsoxd7240 Khoury RoadUnc Health Rockinghamin [place] [id number] Sodium molar conc 142 mmol/L Normal 134-144 Compreh ensive Internal Medicine Work Phone: Comment on above: PATIENT WAS FASTINGP ERFORMED BY: CIERRA LabCocheri Kxivyo5[address] [facility] [id number] Urea nitrogen mass conc 21 mg/dL Normal 8- [facility] Work Phone: Comment on above: PATIENT WAS FASTINGP ERFORMED BY: CIERRA LabCocheri ShieldsLpovty7[address] [facility] [id number] Urea nitrogen/Creatinine mass ratio 18 mg/mg Normal 10- [facility] Work Phone: Comment on above: PATIENT WAS FASTINGP ERFORMED BY: [facility]RA [facility]St[facility] Tchkhz50[address] [facility] [place] [id number] MICROALBUMINOrdered By: Syst em Wharf Operator on 03-22-2018 Albumin DL <= 20 mg/L mass conc (U) 22.4 ug/mL Normal [facility] Work Phone: Comment on above: PATIENT WAS FASTINGP ERFORMED BY: CIERRA LabCo Yitajp5588 [address] [facility] [id number] Albumin/Creatinine mass ratio (U) 11.5 {mg/g_creat} Normal 0.0-30.0 [facility] Work Phone: Comment on above: PATIENT WAS FASTINGP ERFORMED BY: CIERRA [facility] Anitly[address] [facility] [place] [id number] Creatinine mass conc (U) 195.3 mg/dL Normal [facility] Work Phone: Comment on above: PATIENT WAS FASTINGP ERFORMED BY: CIERRA LabCo Hkrfsp6317 [facility] [id number] Blood Glucose , Office ([phone])Ordered By: Richelle Campos on 02-14-2018 Glucose Glucometer molar conc (BldC) 103 1 Normal [facility] Work Phone: HgA1C , Office ([phone])Ordere d By: Marilynn Chanel on 02-14-2018 Hemoglobin A1c/Hemoglobin.total mass fraction (Bld) 6.2 % Normal 4.6 - 7.1 Comprehensiv e Internal Medicine Work Phone: PSA,Total - Annual ScreenOrd ered By: Piggery Worker on 11-23-2017 Prostate specific Ag mass conc 0.52 ng/mL Normal 0.00-4.00 [facility] Work Phone: Comment on above: This test was perfor med using the TPSA assay method for [employer] chemistry system. Values obtained with differentassay methods cannot be used interchangably.When changing PSA assays in the course of monitoring apatient, additional sequential testing should be carriedout to confirm baseline values. [facility] Udgbjcnlhc6883 [facility] [place], [address] Blood Glucose , Office ([phone])Ordered By: Richelle Campos on 11-08-2017 Glucose Glucometer molar conc (BldC) 130 1 Normal [facility] Work Phone: CBC W/AUTO DIFF WBC (09578)O rdered By: Piggery Worker on 11-08-2017 Basophils #/vol (Bld) 0.0 {x10E3/uL} Normal 0.0-0.2 [facility] Work Phone: Comment on above: PATIENT WAS FASTINGP ERFORMED BY: [facility] Jlzalc2217 [facility] [id number] Basophils (Bld) [#/Vol] 0.0 10*3/uL Normal 0.0-0.2 [facility]; [facility] Work Phone: Basophils Auto #/vol (Bld) 0.0 {x10E3/uL} Normal 0.0-0.2 [facility] Work Phone: Basophils/100 WBC (Bld) 0 % Normal [facility] Work Phone: Comment on above: PATIENT WAS FASTINGP ERFORMED BY: BegunThomas [place] [id number] [facility] [id number] Basophils/100 WBC Auto (Bld) 0 % Normal [facility] Work Phone: Eosinophils #/vol (Bld) 0.0 {x10E3/uL} Normal 0.0-0.4 [facility] Work Phone: Comment on above: PATIENT WAS FASTINGP ERFORMED BY: [place]unThomas [place] [id number] [facility] [id number] Eosinophils (Bld) [#/Vol] 0.0 10*3/uL Normal 0.0-0.4 [facility]; [facility] Work Phone: Eosinophils Auto #/vol (Bld) 0.0 {x10E3/uL} Normal 0.0-0.4 [facility] Work Phone: Eosinophils/100 WBC (Bld) 1 % Normal [facility] Work Phone: Comment on above: PATIENT WAS FASTINGP ERFORMED BY: [place]unThomas [place] 8443770 [facility] [id number] Eosinophils/100 WBC Auto (Bld) 1 % Normal [facility] Work Phone: Erythrocyte distribution width Auto Ratio (RBC) 13.9 % Normal 12.3-15.4 [facility] Work Phone: Erythrocyte distribution width Ratio (RBC) 13.9 % Normal 12.3-15.4 [facility] Work Phone: Comment on above: PATIENT WAS FASTINGP ERFORMED BY: [place]Thomas [place] [id number] [facility] [id number] Hematocrit Auto Volume Fraction (Bld) 41.1 % Normal 37.5-51.0 Comprehens shawn [facility] Work Phone: Hematocrit Volume Fraction (Bld) 41.1 % Normal 37.5-51.0 [facility] Work Phone: Comment on above: PATIENT WAS FASTINGP ERFORMED BY: CIERRA [facility]6370 [facility] [id number] Hemoglobin mass conc (Bld) 14.0 g/dL Normal 13.0-17.7 [facility] Work Phone: Comment on above: PATIENT WAS FASTINGP ERFORMED BY: [place] [id number] [facility] [id number] Immature granulocytes #/vol (Bld) 0.0 {x10E3/uL} Normal 0.0-0.1 [facility] Work Phone: Comment on above: PATIENT WAS FASTINGP ERFORMED BY: [place] [id number] [facility] [id number] Immature granulocytes (Bld) [#/Vol] 0.0 10*3/uL Normal 0.0-0.1 [facility]; [facility] Work Phone: Immature granulocytes/100 WBC (Bld) 0 % Normal [facility] Work Phone: Comment on above: PATIENT WAS FASTINGP ERFORMED BY: [facility]6370 [facility] [id number] Lymphocytes #/vol (Bld) 1.7 {x10E3/uL} Normal 0.7-3.1 [facility] Work Phone: Comment on above: PATIENT WAS FASTINGP ERFORMED BY: [facility]6370 [facility] [id number] Lymphocytes (Bld) [#/Vol] 1.7 10*3/uL Normal 0.7-3.1 [facility]; [facility] Work Phone: Lymphocytes Auto #/vol (Bld) 1.7 {x10E3/uL} Normal 0.7-3.1 [facility] Work Phone: Lymphocytes/100 WBC (Bld) 26 % Normal [facility] Work Phone: Comment on above: PATIENT WAS FASTINGP ERFORMED BY: [place] 6695570 [facility] [id number] Lymphocytes/100 WBC Auto (Bld) 26 % Normal [facility] Work Phone: MCH Auto Entitic mass (RBC) 30.4 pg Normal 26.6-33.0 [facility] Work Phone: MCH Entitic mass (RBC) 30.4 pg Normal 26.6-33.0 [facility] Work Phone: Comment on above: PATIENT WAS FASTINGP ERFORMED BY: [facility]6370 [facility] [id number] MCHC Auto mass conc (RBC) 34.1 g/dL Normal 31.5-35.7 [facility] Work Phone: MCHC mass conc (RBC) 34.1 g/dL Normal 31.5-35.7 [facility] Work Phone: Comment on above: PATIENT WAS FASTINGP ERFORMED BY: CIERRA [facility]6370 [facility] [id number] MCV Auto Entitic volume (RBC) 89 fL Normal 79-97 [facility] Work Phone: MCV Entitic volume (RBC) 89 fL Normal 79-97 [facility] Work Phone: Comment on above: PATIENT WAS FASTINGP ERFORMED BY: CIERRA [place] [id number] [facility] [id number] Monocytes #/vol (Bld) 0.4 {x10E3/uL} Normal 0.1-0.9 [facility] Work Phone: Comment on above: PATIENT WAS FASTINGP ERFORMED BY: [facility]6370 [facility] [id number] Monocytes (Bld) [#/Vol] 0.4 10*3/uL Normal 0.1-0.9 [facility]; [facility] Work Phone: Monocytes Auto #/vol (Bld) 0.4 {x10E3/uL} Normal 0.1-0.9 [facility] Work Phone: Monocytes/100 WBC (Bld) 6 % Normal [facility] Work Phone: Comment on above: PATIENT WAS FASTINGP ERFORMED BY: [facility] Emlizj2762 [address] RoadDublin [place] [id number] Monocytes/100 WBC Auto (Bld) 6 % Normal [facility] Work Phone: Morphology Interp Priyank (Bld) Note: Normal [facility] Work Phone: Comment on above: Verified by microsco pic examination. PATIENT WAS FASTINGP ERFORMED BY: [facility] Tcogbs4505 [address]y RoadDublin [place] [id number] Neutrophils #/vol (Bld) 4.4 {x10E3/uL} Normal 1.4-7.0 [facility] Work Phone: Comment on above: PATIENT WAS FASTINGP ERFORMED BY: [facility] Bzlrpc1438 [address] [facility] GladwinDuin [place] [id number] Neutrophils (Bld) [#/Vol] 4.4 10*3/uL Normal 1.4-7.0 [facility]; [facility] Work Phone: Neutrophils Auto #/vol (Bld) 4.4 {x10E3/uL} Normal 1.4-7.0 [facility] Work Phone: Neutrophils/100 WBC (Bld) 67 % Normal [facility] Work Phone: Comment on above: PATIENT WAS FASTINGP ERFORMED BY: [facility] Espkxv4247 [address] [facility] [place] [id number] Neutrophils/100 WBC Auto (Bld) 67 % Normal [facility] Work Phone: Platelets #/vol (Bld) 185 {x10E3/uL} Normal 150-379 [facility] Work Phone: Comment on above: PATIENT WAS FASTINGP ERFORMED BY: [facility] Tjuhli8565 [address]y RoadDublin [place] [id number] Platelets (Bld) [#/Vol] 185 10*3/uL Normal 150-379 [facility]; [facility] Work Phone: Platelets Auto #/vol (Bld) 185 {x10E3/uL} Normal 150-379 [facility] Work Phone: RBC #/vol (Bld) 4.60 {x10E6/uL} Normal 4.14-5.80 Comp [facility] centerensive [facility] Work Phone: Comment on above: PATIENT WAS FASTINGP ERFORMED BY: CIERRA [facility]VENT[facility] MEDICINE70 Cash Check CardFirstHealth Montgomery Memorial Hospital [id number] RBC (Bld) [#/Vol] 4.60 10*6/uL Normal 4.14-5.80 Compr ensive Internal Medicine; [facility] Work Phone: RBC Auto #/vol (Bld) 4.60 {x10E6/uL} Normal 4.14-5.80 [facility] Work Phone: WBC #/vol (Bld) 6.6 {x10E3/uL} Normal 3.4-10.8 Compr [facility] Internal [facility] Work Phone: Comment on above: PATIENT WAS FASTINGP ERFORMED BY: CIERRA [employer]6370 Cash Check CardFirstHealth Montgomery Memorial Hospital [id number] WBC (Bld) [#/Vol] 6.6 10*3/uL Normal 3.4-10.8 Compr[facility]; [facility] Work Phone: WBC Auto #/vol (Bld) 6.6 {x10E3/uL} Normal 3.4-10.8 [facility] Work Phone: HgA1C , Office ([phone])Ordere d By: Richelle Campos on 11-08-2017 Hemoglobin A1c/Hemoglobin.total mass fraction (Bld) 6.5 % Normal 4.6 - 7.1 Comprehensiv e Internal Medicine Work Phone: LIPID PANEL ([id number])Ordered B y: Piggery Worker on 11-08-2017 Cholesterol in HDL mass conc 30 mg/dL Abnormal [facility] Work Phone: Comment on above: PATIENT WAS FASTINGP ERFORMED BY: CIERRA Carbonated ContentFirstHealth Montgomery Memorial Hospital [id number] Cholesterol in LDL mass conc 61 mg/dL Normal 0-99 [facility] Work Phone: Comment on above: PATIENT WAS FASTINGP ERFORMED BY: CIERRA Ellis6370 [facility] [id number] Cholesterol in LDL/Cholesterol in HDL mass ratio 2.0 {ratio_units} Normal 0.0-3.6 [facility] Work Phone: Comment on above: LDL/HDL Ratio Men Wo men 1/2 Avg.Risk 1.0 1.5 Avg.Risk 3.6 3.2 2X Avg.Risk 6.2 5.0 3X Avg.Risk 8.0 6.1 PATIENT WAS FASTINGP ERFORMED BY: CIERRA Ellis6370 [facility] [id number] Cholesterol in VLDL mass conc 20 mg/dL Normal 5-40 [facility] Work Phone: Comment on above: PATIENT WAS FASTINGP ERFORMED BY: CIERRA Shieldslin6370 [facility] [id number] Cholesterol mass conc 111 mg/dL Normal 100-199 Com prehensive Internal Medicine Work Phone: Comment on above: PATIENT WAS FASTINGP ERFORMED BY: CIERRA Ellis6370 [facility] [id number] Triglyceride mass conc 101 mg/dL Normal 0-149 [facility] Work Phone: Comment on above: PATIENT WAS FASTINGP ERFORMED BY: CIERRA Ellis6370 [facility] [id number] METABOLIC PANEL, COMPREHENSI VE ([id number])Ordered By: Piggery Worker on 11-08-2017 Albumin mass conc 4.0 g/dL Normal 3.5-4.7 Compreh ensive Internal Medicine Work Phone: Comment on above: PATIENT WAS FASTINGP ERFORMED BY: CIERRA Shieldslin6370 [facility] [id number] Albumin/Globulin mass ratio 1.4 {ratio} Normal 1.2-2.2 [facility] Work Phone: Comment on above: PATIENT WAS FASTINGP ERFORMED BY: CIERRA [facility] Zzqjfy7809 K[address]y RoadDublin [place] [id number] ALP [Catalytic activity/Vol] 124 U/L Abnormal 39-117 [facility]; [facility] Work Phone: ALP enzyme act/vol 124 [iU]/L Abnormal 39-117 [facility] Internal Medicine Work Phone: Comment on above: PATIENT WAS FASTINGP ERFORMED BY: CIERRA [facility] Mpipem8140 [address] RoadDublin [place] [id number] ALT [Catalytic activity/Vol] 14 U/L Normal 0-44 [facility]; [facility] Work Phone: ALT enzyme act/vol 14 [iU]/L Normal 0-44 [facility] Medicine Work Phone: Comment on above: PATIENT WAS FASTINGP ERFORMED BY: CIERRA [facility] Gooxkp4175 [address] Roadblin [place] [id number] AST [Catalytic activity/Vol] 22 U/L Normal 0-40 [facility]; [facility] Work Phone: AST enzyme act/vol 22 [iU]/L Normal 0-40 [facility] Internal Medicine Work Phone: Comment on above: PATIENT WAS FASTINGP ERFORMED BY: CIERRA [facility] Ukalne6256 [address] [facility] [place] [id number] Bilirubin mass conc 1.0 mg/dL Normal 0.0-1.2 [facility] Internal Medicine Work Phone: Comment on above: PATIENT WAS FASTINGP ERFORMED BY: CIERRA [facility] Kjoaxs6896 [address]y RoadDublin [place] [id number] Calcium mass conc 9.1 mg/dL Normal 8.6-10.2 Compreh [facility] Internal Medicine Work Phone: Comment on above: PATIENT WAS FASTINGP ERFORMED BY: CIERRA [facility] Gwocgj9716 [address]y RoadDublin [place] [id number] Chloride molar conc 105 mmol/L Normal 96-106 Compr ensive Internal Medicine Work Phone: Comment on above: PATIENT WAS FASTINGP ERFORMED BY: CIERRA [facility] Rnvhhp1240 [address] RoadDublin [place] [id number] CO2 molar conc 22 mmol/L Normal 18-29 Comprehens shawn Internal Medicine Work Phone: Comment on above: PATIENT WAS FASTINGP ERFORMED BY: CIERRA [facility] Zeidgc9874 [address] RoadDublin [place] [id number] Creatinine mass conc 0.80 mg/dL Normal 0.76-1.27 Comp rehensive Internal Medicine Work Phone: Comment on above: PATIENT WAS FASTINGP ERFORMED BY: CIERRA [facility] Tzqamj4332 [address] RoadDublin [place] [id number] GFR/1.73 sq M predicted among blacks CKD-EPI vol rate/area (S/P/Bld) 98 mL/min/1.73 Normal Comprehensiv e Internal Medicine Work Phone: Comment on above: PATIENT WAS FASTINGP ERFORMED BY: CIERRA [facility] Xizaod3111 [address] RoadDublin [place] [id number] GFR/1.73 sq M predicted among non-blacks CKD-EPI vol rate/area (S/P/Bld) 84 mL/min/1.73 Normal [facility] Work Phone: Comment on above: PATIENT WAS FASTINGP ERFORMED BY: CIERRA [facility] Tieljk9008 [address] Roadblin [place] [id number] Globulin Calculated mass conc (S) 2.8 g/dL Normal 1.5-4.5 [facility] Work Phone: Globulin mass conc (S) 2.8 g/dL Normal 1.5-4.5 [facility] Work Phone: Comment on above: PATIENT WAS FASTINGP ERFORMED BY: CIERRA [facility] Mmvsju7592 K[address]y RoadDublin [place] [id number] Glucose mass conc 120 mg/dL Abnormal 65-99 Compreh ensive Internal Medicine Work Phone: Comment on above: PATIENT WAS FASTINGP ERFORMED BY: CIERRA [facility] Gpdwcc2184 [address] RoadDublin [place] [id number] Potassium molar conc 4.6 mmol/L Normal 3.5-5.2 Comp rehensive Internal Medicine Work Phone: Comment on above: PATIENT WAS FASTINGP ERFORMED BY: CIERRA Alicia Ellis6370 [facility] [id number] Protein mass conc 6.8 g/dL Normal 6.0-8.5 Compreh ensive Internal Medicine Work Phone: Comment on above: PATIENT WAS FASTINGP ERFORMED BY: CIERRA Jenn Zgthjy5552 [facility] [id number] Sodium molar conc 142 mmol/L Normal 134-144 Compreh ensive Internal Medicine Work Phone: Comment on above: PATIENT WAS FASTINGP ERFORMED BY: CIERRA [facility]jaSt. [facility] Doydbs0575 [facility] [id number] Urea nitrogen mass conc 14 mg/dL Normal 8-27 [facility] Work Phone: Comment on above: PATIENT WAS FASTINGP ERFORMED BY: CIERRA [facility] Djzebj6656 [facility] [id number] Urea nitrogen/Creatinine mass ratio 18 mg/mg Normal 10-24 [facility] Work Phone: Comment on above: PATIENT WAS FASTINGP ERFORMED BY: CIERRA TejaSt. [facility] Jorncv3863 [facility] [id number] MICROALBUMINOrdered By: Syst em Wharf Operator on 11-08-2017 Albumin DL <= 20 mg/L mass conc (U) 66.0 ug/mL Normal [facility] Work Phone: Comment on above: PATIENT WAS FASTINGP ERFORMED BY: CIERRA [facility]6370 [facility] [id number] Albumin/Creatinine mass ratio (U) 48.0 {mg/g_creat} Abnormal 0.0-30.0 [facility] Work Phone: Comment on above: PATIENT WAS FASTINGP ERFORMED BY: CIERRA [place] [id number] [facility] [id number] Creatinine mass conc (U) 137.4 mg/dL Normal [facility] Work Phone: Comment on above: PATIENT WAS FASTINGP ERFORMED BY: CIERRA LabCocheri ShieldsOflqxk8569 [address] [facility] [place] [id number] Microscopic ExaminationOrder ed By: Piggery Worker on 11-08-2017 Bacteria LM.HPF #/area (Urine sed) None seen Normal [facility] Work Phone: Comment on above: PATIENT WAS FASTINGP ERFORMED BY: CIERRA [facility] Hennej8919 [address] [facility] [place] [id number] Casts LM Nom (Urine sed) Hyaline casts Normal [facility] Work Phone: Comment on above: PATIENT WAS FASTINGP ERFORMED BY: CIERRA LabTierra ShieldsCiwoja0708 [address] [facility]in [place] [id number] Casts LM Ql (Urine sed) Present Abnormal [facility] Work Phone: Comment on above: PATIENT WAS FASTINGP ERFORMED BY: CIERRA LabTierra ShieldsChwlcb2110 [address] [facility] [id number] Epithelial cells LM.HPF #/area (Urine sed) None seen Normal 0 - 10 [facility] Work Phone: Comment on above: PATIENT WAS FASTINGP ERFORMED BY: CIERRA LabTierra ShieldsZynouh8426 [address] [facility] [place] [id number] Mucus LM Ql (Urine sed) Present Normal [facility] Work Phone: Mucus Ql (Urine sed) Present Normal Comp rehensive Internal Medicine Work Phone: Comment on above: PATIENT WAS FASTINGP ERFORMED BY: CIERRA [facility] Ieosgj7988 K[address]y RoadDublin [place] [id number] RBC LM.HPF #/area (Urine sed) 0-2 Normal 0 - 2 [facility] Work Phone: Comment on above: PATIENT WAS FASTINGP ERFORMED BY: CIERRA [facility] Gcpczt0108 [address] [facility] [place] [id number] WBC LM.HPF #/area (Urine sed) 0-5 Normal 0 - 5 [facility] Work Phone: Comment on above: PATIENT WAS FASTINGP ERFORMED BY: CIERRA [facility] Edmiyf3286 K[address]y RoadDublin [place] [id number] TSH ([id number])Ordered By: Delma m Wharf Operator on 11-08-2017 Thyrotropin Qn 1.620 {uIU/mL} Normal 0.450-4.50 0 [facility] Work Phone: Comment on above: PATIENT WAS FASTINGP ERFORMED BY: CIERRA [facility] Brnvbk1877 K[address]y RoadDublin [place] [id number] URINALYSIS, W/ MICRO ([id number]) Ordered By: Piggery Worker on 11-08-2017 Appearance Nom (U) Clear Normal Compre hensive Internal Medicine Work Phone: Comment on above: PATIENT WAS FASTINGP ERFORMED BY: CIERRA [facility] Zfbfbp6839 [address] RoadDublin [place] [id number] Bilirubin Ql (U) Negative Normal Comprehe nsive Internal Medicine Work Phone: Comment on above: PATIENT WAS FASTINGP ERFORMED BY: CIERRA [facility] Fudbsk6358 [address] RoadDublin [place] [id number] Bilirubin Ql (U) Negative Normal Comprehe nsive Internal Medicine; [facility] Work Phone: Color Nom (U) Yellow Normal Comprehensi ve Internal Medicine Work Phone: Comment on above: PATIENT WAS FASTINGP ERFORMED BY: CIERRA [facility] Paonjv7317 [address] RoadDublin [place] [id number] Glucose Ql (U) Negative Normal Comprehens shawn Internal Medicine Work Phone: Comment on above: PATIENT WAS FASTINGP ERFORMED BY: CIERRA [facility] Cvjlau0082 [address] RoadDublin [place] [id number] Glucose Ql (U) Negative Normal Comprehens shawn Internal Medicine; [facility] Work Phone: Hemoglobin Ql (U) Negative Normal Compreh ensive Internal Medicine Work Phone: Comment on above: PATIENT WAS FASTINGP ERFORMED BY: CIERRA [facility] Oacdjm8904 [address] RoadDublin [place] [id number] Hemoglobin Ql (U) Negative Normal Compreh ensive Internal Medicine; [facility] Work Phone: Hemoglobin Test strip Ql (U) Negative Normal [facility] Work Phone: Ketones Ql (U) Negative Normal Comprehens shawn Internal Medicine Work Phone: Comment on above: PATIENT WAS FASTINGP ERFORMED BY: CIERRA [facility] Pmchst2669 [address] RoadDublin [place] [id number] Ketones Ql (U) Negative Normal Comprehens shawn Internal Medicine; [facility] Work Phone: Leukocyte esterase Test strip Ql (U) Negative Normal [facility] Work Phone: Comment on above: PATIENT WAS FASTINGP ERFORMED BY: CB [facility] Sqnyvy6787 [address]y RoadDublin [place] [id number] Leukocyte esterase Test strip Ql (U) Negative Normal [facility]; [facility] Work Phone: Microscopic observation LM Nom (Urine sed) MICRON Normal [facility] Work Phone: Comment on above: Microscopic follows if indicated. PATIENT WAS FASTINGP ERFORMED BY: CB [facility] Suobbs3811 [address]y RoadDublin [place] [id number] Microscopic observation LM Nom (Urine sed) See below: Normal [facility] Work Phone: Comment on above: Microscopic was sander cated and was performed. PATIENT WAS FASTINGP ERFORMED BY: [facility] Jmpafr4289 [address]y RoadDublin [place] [id number] Nitrite Ql (U) Negative Normal Comprehens shawn Internal Medicine Work Phone: Comment on above: PATIENT WAS FASTINGP ERFORMED BY: CB [facility] Mhztik4214 [address] RoadDublin [place] [id number] Nitrite Ql (U) Negative Normal Comprehens shawn Internal Medicine; [facility] Work Phone: Nitrite Test strip Ql (U) Negative Normal [facility] Work Phone: pH (U) 5.5 [pH] Normal 5.0-7.5 [facility] Work Phone: Comment on above: PATIENT WAS FASTINGP ERFORMED BY: CIERRA MediamindResearch Psychiatric CenterXbnojg1214 K[address]y GoustoAtrium Health Carol[facility] [id number] pH Test strip (U) 5.5 [pH] Normal 5.0-7.5 Compreh ensive Internal Medicine Work Phone: Protein Ql (U) Negative Normal Comprehens shawn Internal Medicine Work Phone: Comment on above: PATIENT WAS FASTINGP ERFORMED BY: CIERRA [facility] Opvdgc9941 [facility] [id number] Protein Ql (U) Negative Normal Comprehens shawn Internal Medicine; Comprehensive Internal Medicine Work Phone: Protein Test strip Ql (U) Negative Normal [facility] Work Phone: Specific gravity Relative Density (U) 1.023 1 Normal 1.005-1.03 0 [facility] Work Phone: Comment on above: PATIENT WAS FASTINGP ERFORMED BY: [facility] [id number] [facility] [id number] Urobilinogen (U) [Mass/Vol] 0.2 mg/dL Normal 0.2-1.0 [facility]; [facility] Work Phone: Urobilinogen Test strip mass conc (U) 0.2 mg/dL Normal 0.2-1.0 Comprehensiv e Internal Medicine Work Phone: Comment on above: PATIENT WAS FASTINGP ERFORMED BY: [facility]RA [facility] Qtskkw2543 [facility] [id number] Blood Glucose , Office ([phone])Ordered By: Richelle Campos on 05-05-2017 Glucose Glucometer molar conc (BldC) 164 1 Normal [facility] Work Phone: HgA1C , Office ([phone])Ordere d By: Richelle Campos on 05-05-2017 Hemoglobin A1c/Hemoglobin.total mass fraction (Bld) 6.0 % Normal 4.6 - 7.1 Comprehensiv e Internal Medicine Work Phone: CBC W/Diff, AutomatedOrdered By: Piggery Worker on 04-27-2017 Absolute Lymph 1.72 {X10_3/ul} Normal 0.83-4.51 Compr ehensive Internal Medicine Work Phone: Absolute Neut 5.3 {X10_3/uL} Normal 2.0-7.7 Compreh ensive Internal Medicine Work Phone: Comment on above: [facility] [address] [place], [address] Basophils/100 WBC (Bld) 0.3 % Normal 0-1 [facility] Work Phone: Comment on above: [facility] [address] [place], [address] Basophils/100 WBC Auto (Bld) 0.3 % Normal 0-1 [facility] Work Phone: Eosinophils/100 WBC (Bld) 2.1 % Normal 0-5 [facility] Work Phone: Comment on above: [facility] [address] [place], [address] Eosinophils/100 WBC Auto (Bld) 2.1 % Normal 0-5 [facility] Work Phone: Erythrocyte distribution width Auto Ratio (RBC) 13.6 % Normal 11.6-14.6 [facility] Work Phone: Erythrocyte distribution width Ratio (RBC) 13.6 % Normal 11.6-14.6 [facility] Work Phone: Comment on above: [facility] [address] [place], [address] Hematocrit Auto Volume Fraction (Bld) 40.4 % Normal 40-54 Comprehens shawn Internal Medicine Work Phone: Hematocrit Volume Fraction (Bld) 40.4 % Normal 40-54 [facility] Work Phone: Comment on above: [facility] [address] [place], [address] Hemoglobin mass conc (Bld) 13.4 g/dL Normal 13.0-16.5 [facility] Work Phone: Comment on above: [facility] [address] [place], [address] IM GRAN % 0.100 % Normal 0.0-0.9 [facility] Work Phone: Comment on above: IG% - Immature Granu locytes (promyelocytes, myelocytes andmetamyelocytes) > 1% indicates that a LEFT SHIFT is Present. [facility] [address] [place], [address] Lymphocytes #/vol (Bld) 1.72 {X10_3/ul} Normal 0.83-4.51 [facility] Work Phone: Comment on above: [facility] [address] [place], [address] Lymphocytes/100 WBC (Bld) 22.7 % Normal 19-41 [facility] Work Phone: Comment on above: [facility] [address] [place], [address] Lymphocytes/100 WBC Auto (Bld) 22.7 % Normal 19-41 [facility] Work Phone: MCH Auto Entitic mass (RBC) 30.2 pg Normal 27.0-32.0 [facility] Work Phone: MCH Entitic mass (RBC) 30.2 pg Normal 27.0-32.0 [facility] Work Phone: Comment on above: [facility] [address] [place], [address] MCHC Auto mass conc (RBC) 33.2 {g/gl} Normal 32-36 [facility] Work Phone: MCHC mass conc (RBC) 33.2 {g/gl} Normal 32-36 [facility] prehensive Internal Medicine Work Phone: Comment on above: [facility] [address] [place], [address] MCV Auto Entitic volume (RBC) 91.2 fL Normal 80-94 [facility] Work Phone: MCV Entitic volume (RBC) 91.2 fL Normal 80-94 [facility] Work Phone: Comment on above: [facility] [address] [place], [address] Monocytes/100 WBC Auto (Bld) 5.4 % Normal 0-10 [facility] Work Phone: Comment on above: [facility] [address] [place], [address] Neutrophils/100 WBC (Bld) 69.4 % Normal 47-70 [facility] Work Phone: Comment on above: [facility] [address] [place], [address] Neutrophils/100 WBC Auto (Bld) 69.4 % Normal 47-70 [facility] Work Phone: Platelet mean volume Auto Entitic volume (Bld) 10.2 fL Normal 6.2-12.0 [facility] Work Phone: Platelet mean volume Entitic volume (Bld) 10.2 fL Normal 6.2-12.0 Comprehensi Internal Medicine Work Phone: Comment on above: [facility] [address] [place], [address] Platelets #/vol (Bld) 174 10*3/uL Normal 150-450 [facility] Internal Medicine Work Phone: Comment on above: [facility] [address] [place], [address] Platelets Auto #/vol (Bld) 174 10*3/uL Normal 150-450 [facility] Work Phone: RBC #/vol (Bld) 4.43 {M/mm3} Abnormal 4.6-6.2 Compreh ensive Internal Medicine Work Phone: Comment on above: [facility] [address] [place], [address] RBC Auto #/vol (Bld) 4.43 {M/mm3} Abnormal 4.6-6.2 Co mprehensive Internal Medicine Work Phone: RDW SD 44.7 fL Abnormal 35.1-43.9 [facility] Work Phone: Comment on above: [facility] [address] [place], [place], [address] WBC #/vol (Bld) 7.6 10*3/uL Normal 4.4-11.0 Comprehe nsive Internal Medicine Work Phone: Comment on above: [facility] [address] [place], [address] WBC Auto #/vol (Bld) 7.6 10*3/uL Normal 4.4-11.0 Com prehensive Internal Medicine Work Phone: Comprehensive Metabolic Prof ilOrdered By: Piggery Worker on 04-27-2017 Comprehensive metabolic 2000 panel 3.5 g/dL Normal 3.4-5.0 Comprehensi ve Internal Medicine Work Phone: Comment on above: [facility] [address] [place], [address] Comprehensive metabolic 2000 panel 8.4 mg/dL Abnormal 8.5-10.1 Comprehensi ve Internal Medicine Work Phone: Comment on above: [facility] [address] [place], [place], [id number] Comprehensive metabolic 2000 panel 142 mmol/L Normal 136-145 Comprehensi ve Internal Medicine Work Phone: Comment on above: [facility] [address] [place], [place], [address] Comprehensive metabolic 2000 panel 3.4 g/dL Normal 2.3-3.5 Comprehensi ve Internal Medicine Work Phone: Comment on above: [facility] spital [address] [place], [place], [address] Comprehensive metabolic 2000 panel 18 U/L Normal 15-37 Comprehensi ve Internal Medicine Work Phone: Comment on above: [facility] spital [address] [place], [place], [address] Comprehensive metabolic 2000 panel 120 U/L Abnormal 45-117 Comprehensi ve Internal Medicine Work Phone: Comment on above: [facility] spital [address] [place], [place], [address] Comprehensive metabolic 2000 panel 1.0 {RATIO} Normal 0.9-2.4 Comprehensi ve Internal Medicine Work Phone: Comment on above: [facility] [address] [place], [place], [id number] Comprehensive metabolic 2000 panel 16.7 {RATIO} Normal 10-20 Comprehensi ve Internal Medicine Work Phone: Comment on above: [facility] [address] [place], [place], [address] Comprehensive metabolic 2000 panel 112 mmol/L Abnormal 98-107 Comprehensi ve Internal Medicine Work Phone: Comment on above: [facility] [address] [place], [address] Comprehensive metabolic 2000 panel 97 mL/min Normal Comprehensi ve Internal Medicine Work Phone: Comment on above: GFR Calc [facility] [address] [place], [address] Comprehensive metabolic 2000 panel 80 mL/min Normal Comprehensi ve Internal Medicine Work Phone: Comment on above: Non- GFR Calc [facility] spital [address] [place], [place], [address] Comprehensive metabolic 2000 panel 25.0 mmol/L Normal 21.0-32.0 Comprehensi ve Internal Medicine Work Phone: Comment on above: [facility] [address] [place], [place], [address] Comprehensive metabolic 2000 panel 1.20 mg/dL Abnormal 0.20-1.00 Comprehensi ve Internal Medicine Work Phone: Comment on above: [facility] [address] [place], [place], [address] Comprehensive metabolic 2000 panel 5 1 Normal 5-15 Comprehensi ve Internal Medicine Work Phone: Comment on above: [facility] [address] [place], [place], [address] Comprehensive metabolic 2000 panel 0.96 mg/dL Normal 0.70-1.30 Comprehensi ve Internal Medicine Work Phone: Comment on above: The validity of the calculated GFR AND GFRAA in patients over70 years has not been determined. Clinical correlation isessential. [facility] [address] [place], [place], [address] Comprehensive metabolic 2000 panel 16 mg/dL Normal 7-18 Comprehensi ve Internal Medicine Work Phone: Comment on above: [facility] [address] [place], [place], [address] Comprehensive metabolic 2000 panel 104 mg/dL Normal 70-110 Comprehensi ve Internal Medicine Work Phone: Comment on above: [facility] [address] [place], [place], [address] Comprehensive metabolic 2000 panel 4.0 mmol/L Normal 3.5-5.1 Comprehensi ve Internal Medicine Work Phone: Comment on above: [facility] [address] [place], [place], [address] Comprehensive metabolic 2000 panel 6.9 g/dL Normal 6.4-8.2 Comprehensi ve Internal Medicine Work Phone: Comment on above: [facility] [address] [place], [place], [address] Comprehensive metabolic 2000 panel 20 U/L Normal 12-78 Comprehensi ve Internal Medicine Work Phone: Comment on above: [facility] [address] [place], [place], [address] Lipid ProfileOrdered By: Marely tem Wharf Operator on 04-27-2017 Cholesterol in HDL mass conc 37 mg/dL Abnormal [facility] Work Phone: Comment on above: The drugs N-Acetylcy steine and Metamizole may falsely deressthis assay. Reference Range HDL <40 mg/dL Low HDL Cholesterol HDL >or= 60 mg/dL High HDL Cholesterol [facility] [address] [place], [place], [address] Cholesterol in LDL mass conc 54 mg/dL Normal 0-130 [facility] Work Phone: Cholesterol in LDL mass conc 54 mg/dL Normal 0-130 [facility] Work Phone: Comment on above: [facility] [address] [place], [place], [address] Cholesterol in VLDL mass conc 11 mg/dL Normal 5-40 [facility] Work Phone: Comment on above: [facility] [address] [place], [place], [address] Cholesterol mass conc 102 mg/dL Normal Com prehensive Internal Medicine Work Phone: Comment on above: <200 mg/dL Desirable 200-240 mg/dL Borderline >240 mg/dL High Risk [facility] [address] [place], [place], [address] Triglyceride mass conc 53 mg/dL Normal [facility] Work Phone: Comment on above: The drugs N-Acetylcy steine and Metamizole may falsely deressthis assay.Serum Triglycerides Reference Interval Normal <150 mg/dL Borderline high 150 - 199 mg/dL High 200 - 499 mg/dL Very High > or = 500 mg/dL [facility] [address] [place], [place], [address] MicroalbOrdered By: Gerson last on 04-27-2017 MALB:CREAT 23.5 {mg/g_CRE} Normal Comprehen sive Internal Medicine Work Phone: MICROALBUMIN,UR 75.3 mg/L Normal Comprehen sive Internal Medicine Work Phone: UR CREAT 320.00 mg/dL Normal Comprehensiv e Internal Medicine Work Phone: Microalb 23.5 {mg/g_CRE} Normal Comprehen sive Internal Medicine Work Phone: Comment on above: [facility] [address] [place], [place], [address] Microalb 75.3 mg/L Normal [facility] Work Phone: Comment on above: [facility] [address] [place], [place], [address] Microalb 320.00 mg/dL Normal Comprehensiv e Internal Medicine Work Phone: Comment on above: [facility] [address] [place], [place], [address] Thyroid Stim Hormone (TSH)Or dered By: Piggery Worker on 04-27-2017 Thyrotropin Qn 1.10 {uIU/mL} Normal 0.358-3.74 Compreh ensive Internal Medicine Work Phone: Comment on above: [facility] [address] [place], [place], [address] Urinalysis, CompleteOrdered By: Piggery Worker on 04-27-2017 BACTERIA 0 SEEN Normal 0-5 [facility] Work Phone: Comment on above: How was Urine Obtain ed? CLEAN [facility] [address] [place], [address] CLARITY Clear Normal [facility] Work Phone: Comment on above: How was Urine Obtain ed? [facility] [address] [place], [address] COLOR Yellow Normal [facility] Work Phone: Comment on above: How was Urine Obtain ed? [facility] [address] [place], [address] GLUCOSE, UR Normal Normal [facility] Work Phone: Comment on above: How was Urine Obtain ed? [facility] [address] [place], [address] KETONE UR 5 mg/dL Abnormal [facility] Work Phone: Comment on above: How was Urine Obtain ed? [facility] [address] [place], [address] LEUK ESTERASE 25 /ul Abnormal Comprehensi ve Internal Medicine Work Phone: Comment on above: How was Urine Obtain ed? [facility] [address] [place], [address] MUCUS, URINE 1+ Normal Comprehensiv e Internal Medicine Work Phone: Comment on above: How was Urine Obtain ed? [facility] [address] [place], [address] NITRITE UR Negative Normal [facility] Work Phone: Comment on above: How was Urine Obtain ed? [facility] [address] [place], [address] pH UR 5.0 1 Normal 5.0 - 8.0 [facility] Work Phone: Comment on above: How was Urine Obtain ed? [facility] [address] [place], [address] PROT DIPSTX 30 mg/dL Abnormal [facility] Work Phone: Protein mass conc (U) 30 mg/dL Abnormal Com prehensive Internal Medicine Work Phone: Comment on above: How was Urine Obtain ed? [facility] [address] [place], [place], [phone]([phone] RBC #/vol (U) 0-5 SEEN Normal 0-5 Comprehensi ve Internal Medicine Work Phone: Comment on above: How was Urine Obtain ed? [facility] [address] [place], [place], [phone] RBC Test strip #/vol (U) 0-5 SEEN Normal 0-5 [facility] Work Phone: SP.GR. DIPSTX 1.020 1 Normal 1.002-1.03 0 [facility] Work Phone: Comment on above: How was Urine Obtain ed? [facility] [address] [place], [place], [address] UROBILI 1 mg/dL Abnormal [facility] Work Phone: Comment on above: COLOR OF URINE MAY A FFECT DIPSTICK RESULTS. How was Urine Obtain ed? [facility] [address] [place], [place], [phone](282) WBC 0-5 SEEN Normal 0-5 [facility] Work Phone: Comment on above: How was Urine Obtain ed? [facility] [address] [place], [place], [address] Blood Glucose , Office ([phone])Ordered By: Richelle Campos on 12-23-2016 Glucose Glucometer molar conc (BldC) 136 1 Normal [facility] Work Phone: HgA1C , Office ([phone])Ordere d By: Richelle Campos on 12-23-2016 Hemoglobin A1c/Hemoglobin.total mass fraction (Bld) 6.4 % Normal 4.6 - 7.1 Comprehensiv e Internal Medicine Work Phone: PSA,Total- DiagnosticOrdered By: Piggery Worker on 11-17-2016 PSA, DIAGNOSTIC 0.40 ng/mL Normal 0.0-4.0 [facility] Internal Medicine Work Phone: Comment on above: This test was perfor med using the TPSA assay method for theDimension chemistry system. Values obtained with differentassay methods cannot be used interchangably.When changing PSA assays in the course of monitoring apatient, additional sequential testing should be carriedout to confirm baseline values. PSA,Total- Diagnostic 0.40 ng/mL Normal 0.0-4.0 [facility] Internal Medicine Work Phone: Comment on above: This test was perfor med using the TPSA assay method for theDimension chemistry system. Values obtained with differentassay methods cannot be used interchangably.When changing PSA assays in the course of monitoring apatient, additional sequential testing should be carriedout to confirm baseline values. [facility] [address] [facility] [place], [address] Blood Glucose , Office ([phone])Ordered By: Richelle Campos on 06-17-2016 Glucose Glucometer molar conc (BldC) 130 1 Normal [facility] Work Phone: HgA1C , Office ([phone])Ordere d By: Richelle Campos on 06-17-2016 Hemoglobin A1c/Hemoglobin.total mass fraction (Bld) 6.1 % Normal 4.6 - 7.1 [facility] Internal [facility] Work Phone: PSA (Medicare - [id number]) ([phone])Ordered By: Piggery Worker on 06-17-2016 Prostate specific Ag mass conc 0.4 ng/mL Normal 0.0-4.0 [facility] Internal [facility] Work Phone: Comment on above: Raji ECLIA methodol ogy. .According to the [place] [employer], Serum PSA shoulddecrease and remain [...] Dr Monica lema; PATIENT NOT FASTINGPERFORMED BY: [facility]CoC[facility] HospitalAdnoyb4132 [address] [place] [id number] Information: [id number], [id number] CBC W/Diff, AutomatedOrdered By: Piggery Worker on 06-14-2016 Absolute Lymph 1.30 {X10_3/ul} Normal 0.83-4.51 Compr ehensive Internal Medicine Work Phone: Absolute Neut 6.0 {X10_3/uL} Normal 2.0-7.7 Compreh ensive Internal Medicine Work Phone: Comment on above: [facility] [address] [place], [address] Basophils/100 WBC (Bld) 0.3 % Normal 0-1 [facility] Work Phone: Comment on above: [facility] [address] [place], [address] Basophils/100 WBC Auto (Bld) 0.3 % Normal 0-1 [facility] Work Phone: Eosinophils/100 WBC (Bld) 2.1 % Normal 0-5 [facility] Work Phone: Comment on above: [facility] [address] [place], [address] Eosinophils/100 WBC Auto (Bld) 2.1 % Normal 0-5 [facility] Work Phone: Erythrocyte distribution width Auto Ratio (RBC) 13.4 % Normal 11.6-14.6 [facility] Work Phone: Erythrocyte distribution width Ratio (RBC) 13.4 % Normal 11.6-14.6 [facility] Work Phone: Comment on above: [facility] [address] [place], [address] Hematocrit Auto Volume Fraction (Bld) 41.2 % Normal 40-54 [facility] Internal Medicine Work Phone: Hematocrit Volume Fraction (Bld) 41.2 % Normal 40-54 [facility] Medicine Work Phone: Comment on above: [facility] [address] [place], [address] Hemoglobin mass conc (Bld) 13.6 g/dL Normal 13.0-16.5 [facility] Work Phone: Comment on above: [facility] [address] [place], [address] IM GRAN % 0.100 % Normal 0.0-0.9 [facility] Work Phone: Comment on above: IG% - Immature Granu locytes (promyelocytes, myelocytes andmetamyelocytes) > 1% indicates that a LEFT SHIFT is Present. [facility] [address] [place], [address] Lymphocytes #/vol (Bld) 1.30 {X10_3/ul} Normal 0.83-4.51 [facility] Work Phone: Comment on above: [facility] [address] [place], [address] Lymphocytes/100 WBC (Bld) 16.4 % Abnormal 19-41 [facility] Work Phone: Comment on above: [facility] [address] [place], [address] Lymphocytes/100 WBC Auto (Bld) 16.4 % Abnormal 19-41 [facility] Work Phone: MCH Auto Entitic mass (RBC) 30.4 pg Normal 27.0-32.0 [facility] Work Phone: MCH Entitic mass (RBC) 30.4 pg Normal 27.0-32.0 [facility] Work Phone: Comment on above: [facility] [address] [place], [address] MCHC Auto mass conc (RBC) 33.0 {g/gl} Normal 32-36 [facility] Work Phone: MCHC mass conc (RBC) 33.0 {g/gl} Normal 32-36 [facility] prehensive Internal Medicine Work Phone: Comment on above: [facility] [address] [place], [address] MCV Auto Entitic volume (RBC) 92.0 fL Normal 80-94 [facility] Work Phone: MCV Entitic volume (RBC) 92.0 fL Normal 80-94 [facility] Work Phone: Comment on above: [facility] [address] [place], [address] Monocytes/100 WBC Auto (Bld) 5.7 % Normal 0-10 [facility] Work Phone: Comment on above: [facility] [address] [place], [address] Neutrophils/100 WBC (Bld) 75.4 % Abnormal 47-70 [facility] Work Phone: Comment on above: [facility] [address] [place], [address] Neutrophils/100 WBC Auto (Bld) 75.4 % Abnormal 47-70 [facility] Work Phone: Platelet mean volume Auto Entitic volume (Bld) 10.5 fL Normal 6.2-12.0 [facility] Work Phone: Platelet mean volume Entitic volume (Bld) 10.5 fL Normal 6.2-12.0 Comprehensi Internal Medicine Work Phone: Comment on above: [facility] [address] [place], [address] Platelets #/vol (Bld) 177 10*3/uL Normal 150-450 Co mprehensive Internal Medicine Work Phone: Comment on above: [facility] [address] [place], [address] Platelets Auto #/vol (Bld) 177 10*3/uL Normal 150-450 Comprehensive [facility] Work Phone: RBC #/vol (Bld) 4.48 {M/mm3} Abnormal 4.6-6.2 Compreh ensive Internal Medicine Work Phone: Comment on above: [facility] [address] [place], [place], [address] RBC Auto #/vol (Bld) 4.48 {M/mm3} Abnormal 4.6-6.2 Co mprehensive Internal Medicine Work Phone: RDW SD 45.0 fL Abnormal 35.1-43.9 [facility] Work Phone: Comment on above: [facility] [address] [place], [place], [address] WBC #/vol (Bld) 8.0 10*3/uL Normal 4.4-11.0 Comprehe nsive Internal Medicine Work Phone: Comment on above: [facility] [address] [place], [address] WBC Auto #/vol (Bld) 8.0 10*3/uL Normal 4.4-11.0 Com prehensive Internal Medicine Work Phone: Comprehensive Metabolic Prof ilOrdered By: Piggery Worker on 06-14-2016 Comprehensive metabolic 2000 panel 99 mL/min Normal Comprehensi ve Internal Medicine Work Phone: Comment on above: GFR Calc [facility] [address] [place], [place], [id number] Comprehensive metabolic 2000 panel 21 U/L Normal 12-78 Comprehensi ve Internal Medicine Work Phone: Comment on above: [facility] [address] [place], [address] Comprehensive metabolic 2000 panel 110 U/L Normal 50-136 Comprehensi ve Internal Medicine Work Phone: Comment on above: [facility] [address] [place], [address] Comprehensive metabolic 2000 panel 8.2 mg/dL Abnormal 8.5-10.1 Comprehensi ve Internal Medicine Work Phone: Comment on above: [facility] [address] [place], [address] Comprehensive metabolic 2000 panel 82 mL/min Normal Comprehensi ve Internal Medicine Work Phone: Comment on above: Non- GFR Calc [facility] [address] [place], [address] Comprehensive metabolic 2000 panel 15.9 {RATIO} Normal 10-20 Comprehensi ve Internal Medicine Work Phone: Comment on above: [facility] [address] [place], [address] Comprehensive metabolic 2000 panel 15 mg/dL Normal 7-18 Comprehensi ve Internal Medicine Work Phone: Comment on above: [facility] [address] [place], [address] Comprehensive metabolic 2000 panel 1.0 {RATIO} Normal 0.9-2.4 Comprehensi ve Internal Medicine Work Phone: Comment on above: [facility] [address] [place], [address] Comprehensive metabolic 2000 panel 108 mmol/L Abnormal 98-107 Comprehensi ve Internal Medicine Work Phone: Comment on above: [facility] [address] [place], [address] Comprehensive metabolic 2000 panel 7 1 Normal 5-15 Comprehensi ve Internal Medicine Work Phone: Comment on above: [facility] [address] [place], [place], [id number] Comprehensive metabolic 2000 panel 25.0 mmol/L Normal 21.0-32.0 Comprehensi ve Internal Medicine Work Phone: Comment on above: [facility] [address] [place], [place], [id number] Comprehensive metabolic 2000 panel 120 mg/dL Abnormal 70-110 Comprehensi ve Internal Medicine Work Phone: Comment on above: Fasting Glucose resu lt from 110 to <126 mg/dLsuggests IMPAIRED HOMEOSTASIS per A.D.A. criteria. [facility] [address] [place], [place], [address] Comprehensive metabolic 2000 panel 3.4 g/dL Normal 2.3-3.5 Comprehensi ve Internal Medicine Work Phone: Comment on above: [facility] [address] [place], [place], [address] Comprehensive metabolic 2000 panel 6.9 g/dL Normal 6.4-8.2 Comprehensi ve Internal Medicine Work Phone: Comment on above: [facility] [address] [place], [place], [address] Comprehensive metabolic 2000 panel 3.5 g/dL Normal 3.4-5.0 Comprehensi ve Internal Medicine Work Phone: Comment on above: [facility] [address] [place], [place], [address] Comprehensive metabolic 2000 panel 0.94 mg/dL Normal 0.70-1.30 Comprehensi ve Internal Medicine Work Phone: Comment on above: The validity of the calculated GFR AND GFRAA in patients over70 years has not been determined. Clinical correlation isessential. [facility] [address] [place], [place], [address] Comprehensive metabolic 2000 panel 3.9 mmol/L Normal 3.5-5.1 Comprehensi ve Internal Medicine Work Phone: Comment on above: [facility] [address] [place], [place], [address] Comprehensive metabolic 2000 panel 140 mmol/L Normal 136-145 Comprehensi ve Internal Medicine Work Phone: Comment on above: [facility] [address] [place], [place], [address] Comprehensive metabolic 2000 panel 1.10 mg/dL Abnormal 0.20-1.00 Comprehensi ve Internal Medicine Work Phone: Comment on above: [facility] [address] [place], [place], [address] Lipid ProfileOrdered By: Marely tem Wharf Operator on 06-14-2016 Cholesterol in HDL mass conc 40 mg/dL Normal Comprehensive Internal Medicine Work Phone: Comment on above: The drugs N-Acetylcy steine and Metamizole may falsely deressthis assay. Reference Range HDL <40 mg/dL Low HDL Cholesterol HDL >or= 60 mg/dL High HDL Cholesterol [facility] [address] [place], [place], [id number] Cholesterol in LDL mass conc 47 mg/dL Normal 0-130 Comprehensive Internal Medicine Work Phone: Cholesterol in LDL mass conc 47 mg/dL Normal 0-130 Comprehensive Internal Medicine Work Phone: Comment on above: [facility] [address] [place], [place], [address] Cholesterol in VLDL mass conc 13 mg/dL Normal 5-40 Comprehensive Internal Medicine Work Phone: Comment on above: [facility] [address] [place], [place], [address] Cholesterol mass conc 100 mg/dL Normal Com prehensive Internal Medicine Work Phone: Comment on above: <200 mg/dL Desirable 200-240 mg/dL Borderline >240 mg/dL High Risk [facility] [address] [place], [place], [address] Triglyceride mass conc 65 mg/dL Normal Comprehensive Internal Medicine Work Phone: Comment on above: The drugs N-Acetylcy steine and Metamizole may falsely deressthis assay.Serum Triglycerides Reference Interval Normal <150 mg/dL Borderline high 150 - 199 mg/dL High 200 - 499 mg/dL Very High > or = 500 mg/dL [facility] [address] [place], [place], [address] MicroalbOrdered By: Gerson last on 06-14-2016 MALB:CREAT 16.1 {mg/g_CRE} Normal Comprehen sive Internal Medicine Work Phone: MICROALBUMIN,UR 47.4 mg/L Normal Comprehen sive Internal Medicine Work Phone: UR CREAT 295.00 mg/dL Normal Comprehensiv e Internal Medicine Work Phone: Microalb 295.00 mg/dL Normal Comprehensiv e Internal Medicine Work Phone: Comment on above: [facility] [address] [place], [place], [address] Microalb 47.4 mg/L Normal Comprehensive Internal Medicine Work Phone: Comment on above: [facility] [address] [place], [place], [address] Microalb 16.1 {mg/g_CRE} Normal Comprehen sive Internal Medicine Work Phone: Comment on above: [facility] [address] [place], [place], [address] Thyroid Stim Hormone (TSH)Or dered By: Piggery Worker on 06-14-2016 Thyrotropin Qn 0.96 {uIU/mL} Normal 0.358-3.74 Compreh ensive Internal Medicine Work Phone: Comment on above: [facility] [address] [place], [place], [address] Urinalysis, CompleteOrdered By: Piggery Worker on 06-14-2016 BACTERIA 0 SEEN Normal Comprehensive Internal Medicine Work Phone: Comment on above: How was Urine Obtain ed? [facility] [address] [place], [address] CLARITY Sl. Cloudy Normal Comprehensive Internal Medicine Work Phone: Comment on above: How was Urine Obtain ed? [facility] [address] [place], [address] COLOR Yellow Normal Comprehensive Internal Medicine Work Phone: Comment on above: How was Urine Obtain ed? [facility] [address] [place], [address] GLUCOSE, UR Normal Normal Comprehensive Internal Medicine Work Phone: Comment on above: How was Urine Obtain ed? [facility] [address] [place], [address] LEUK ESTERASE 25 /ul Abnormal Comprehensi ve Internal Medicine Work Phone: Comment on above: How was Urine Obtain ed? [facility] [address] [place], [address] MUCUS, URINE 1+ Normal Comprehensiv e Internal Medicine Work Phone: Comment on above: How was Urine Obtain ed? [facility] [address] [place], [address] NITRITE UR Negative Normal Comprehensive Internal Medicine Work Phone: Comment on above: How was Urine Obtain ed? [facility] [address] [place], [address] OCCULT BLOOD-UR 10 /ul Abnormal Comprehen sive Internal Medicine Work Phone: Comment on above: How was Urine Obtain ed? [facility] [address] [place], [id number] pH UR 6.0 1 Normal 5.0 - 8.0 Comprehensive Internal Medicine Work Phone: Comment on above: How was Urine Obtain ed? [facility] Nm[address] SANDR[place] Perez, [id number] PROT DIPSTX 15 mg/dL Abnormal Comprehensive Internal Medicine Work Phone: Protein mass conc (U) 15 mg/dL Abnormal Com prehensive Internal Medicine Work Phone: Comment on above: How was Urine Obtain ed? [facility] [address] [place], [address] RBC #/vol (U) 0-5 SEEN Normal 0-5 Comprehensi ve Internal Medicine Work Phone: Comment on above: How was Urine Obtain ed? [facility] [address] [place], [address] RBC Test strip #/vol (U) 0-5 SEEN Normal 0-5 Comprehensive Internal Medicine Work Phone: SP.GR. DIPSTX 1.020 1 Normal 1.002-1.03 0 Comprehensive Internal Medicine Work Phone: Comment on above: How was Urine Obtain ed? [facility] [address] [place], [address] SQUAM EPI 0-5 SEEN Normal 0-5 Comprehensive Internal Medicine Work Phone: Comment on above: How was Urine Obtain ed? [facility] [address] [place], [address] UROBILI 1 mg/dL Abnormal Comprehensive Internal Medicine Work Phone: Comment on above: How was Urine Obtain ed? [facility] [address] [place], [address] Vitamin D,25 HydroxyOrdered By: Piggery Worker on 06-14-2016 Vitamin D 25-OH 43.1 ng/mL Normal Comprehen [facility] Internal Medicine Work Phone: Comment on above: [...] 250 nmol/L) Toxicity >100 ng/mL (>250 nmol/L) [facility] [address] [place] [address], [id number] Blood Glucose , Office ([phone])Ordered By: Richelle Campos on 02-13-2016 Glucose Glucometer molar conc (BldC) 94 1 Normal Comprehensive Internal Medicine Work Phone: HgA1C , Office ([phone])Ordere d By: Richelle Campos on 02-13-2016 Hemoglobin A1c/Hemoglobin.total mass fraction (Bld) 6.2 % Normal 4.6 - 7.1 Comprehensiv e Internal Medicine Work Phone: Blood Glucose , Office ([phone])Ordered By: Richelle Campos on 11-12-2015 Glucose Glucometer molar conc (BldC) 81 1 Normal Comprehensive Internal Medicine Work Phone: HgA1C , Office ([phone])Ordere d By: Richelle Campos on 11-12-2015 Hemoglobin A1c/Hemoglobin.total mass fraction (Bld) 6.2 % Normal 4.6 - 7.1 Comprehensiv e Internal Medicine Work Phone: CBC W/Diff, AutomatedOrdered By: Piggery Worker on 11-07-2015 Absolute Lymph 1.96 {X10_3/ul} Normal 0.83-4.51 Compr ensive Internal Medicine Work Phone: Absolute Neut 6.6 {X10_3/uL} Normal 2.0-7.7 Compreh ensive Internal Medicine Work Phone: Comment on above: [facility] [address] [place], [address] Basophils/100 WBC (Bld) 0.2 % Normal 0-1 Comprehensive Internal Medicine Work Phone: Comment on above: [facility] [address] [place], [address] Basophils/100 WBC Auto (Bld) 0.2 % Normal 0-1 Comprehensive Internal Medicine Work Phone: Eosinophils/100 WBC (Bld) 2.1 % Normal 0-5 Comprehensive Internal Medicine Work Phone: Comment on above: [facility] [address] [place], [address] Eosinophils/100 WBC Auto (Bld) 2.1 % Normal 0-5 Comprehensive Internal Medicine Work Phone: Erythrocyte distribution width Auto Ratio (RBC) 13.3 % Normal 11.6-14.6 Comprehensive Internal Medicine Work Phone: Erythrocyte distribution width Ratio (RBC) 13.3 % Normal 11.6-14.6 Comprehensive Internal Medicine Work Phone: Comment on above: [facility] [address] [place], [address] Hematocrit Auto Volume Fraction (Bld) 43.0 % Normal 40-54 Comprehens shawn Internal Medicine Work Phone: Hematocrit Volume Fraction (Bld) 43.0 % Normal 40-54 Comprehensive Internal Medicine Work Phone: Comment on above: [facility] [address] [place], [address] Hemoglobin mass conc (Bld) 14.7 g/dL Normal 13.0-16.5 Comprehensive Internal Medicine Work Phone: Comment on above: [facility] [address] [place], [place], [id number] IM GRAN % 0.200 % Normal 0.0-0.9 Comprehensive Internal Medicine Work Phone: Comment on above: IG% - Immature Granu locytes (promyelocytes, myelocytes andmetamyelocytes) > 1% indicates that a LEFT SHIFT is Present. [place] [address] [place], [place], [phone] Lymphocytes #/vol (Bld) 1.96 {X10_3/ul} Normal 0.83-4.51 Comprehensive Internal Medicine Work Phone: Comment on above: [facility] [address] [place], [address] Lymphocytes/100 WBC (Bld) 20.8 % Normal 19-41 Comprehensive Internal Medicine Work Phone: Comment on above: [facility] [address] [place], [address] Lymphocytes/100 WBC Auto (Bld) 20.8 % Normal 19-41 Comprehensive Internal Medicine Work Phone: MCH Auto Entitic mass (RBC) 31.0 pg Normal 27.0-32.0 Comprehensive Internal Medicine Work Phone: MCH Entitic mass (RBC) 31.0 pg Normal 27.0-32.0 Comprehensive Internal Medicine Work Phone: Comment on above: [facility] [address] [place], [place], [id number] MCHC Auto mass conc (RBC) 34.2 {g/gl} Normal 32-36 Comprehensive Internal Medicine Work Phone: MCHC mass conc (RBC) 34.2 {g/gl} Normal 32-36 [facility] prehensive Internal Medicine Work Phone: Comment on above: [place] [address] [place], [place], [address] MCV Auto Entitic volume (RBC) 90.7 fL Normal 80-94 Comprehensive Internal Medicine Work Phone: MCV Entitic volume (RBC) 90.7 fL Normal 80-94 Comprehensive Internal Medicine Work Phone: Comment on above: [facility] [address] [place], [address] Monocytes/100 WBC Auto (Bld) 6.3 % Normal 0-10 Comprehensive Internal Medicine Work Phone: Comment on above: [facility] [address] [place], [address] Neutrophils/100 WBC (Bld) 70.4 % Abnormal 47-70 Comprehensive Internal Medicine Work Phone: Comment on above: [facility] [address] [place], [address] Neutrophils/100 WBC Auto (Bld) 70.4 % Abnormal 47-70 Comprehensive Internal Medicine Work Phone: Platelet mean volume Auto Entitic volume (Bld) 10.9 fL Normal 6.2-12.0 Comprehensive Internal Medicine Work Phone: Platelet mean volume Entitic volume (Bld) 10.9 fL Normal 6.2-12.0 Comprehensi Internal Medicine Work Phone: Comment on above: [facility] [address] [place], [address] Platelets #/vol (Bld) 180 10*3/uL Normal 150-450 Co mprehensive Internal Medicine Work Phone: Comment on above: [facility] [address] [place], [address] Platelets Auto #/vol (Bld) 180 10*3/uL Normal 150-450 Comprehensive Internal Medicine Work Phone: RBC #/vol (Bld) 4.74 {M/mm3} Normal 4.6-6.2 Compreh ensive Internal Medicine Work Phone: Comment on above: [facility] [address] [place], [place], [address] RBC Auto #/vol (Bld) 4.74 {M/mm3} Normal 4.6-6.[address] louisehensive Internal Medicine Work Phone: RDW SD 43.8 fL Normal 35.1-43.9 Comprehensive Internal Medicine Work Phone: Comment on above: [facility] [address] [place], [place], [phone] WBC #/vol (Bld) 9.4 10*3/uL Normal 4.4-11.0 Comprehe nsive Internal Medicine Work Phone: Comment on above: [facility] [address] [place], [address] WBC Auto #/vol (Bld) 9.4 10*3/uL Normal 4.4-11.0 [facility] prehensive Internal Medicine Work Phone: Comprehensive Metabolic Prof ilOrdered By: Piggery Worker on 11-07-2015 Comprehensive metabolic 2000 panel 1.40 mg/dL Abnormal 0.20-1.00 Comprehensi ve Internal Medicine Work Phone: Comment on above: [facility] [address] [place], [address] Comprehensive metabolic 2000 panel 22 U/L Normal 15-37 Comprehensi ve Internal Medicine Work Phone: Comment on above: [facility] [address] [place], [address] Comprehensive metabolic 2000 panel 26 U/L Normal 12-78 Comprehensi ve Internal Medicine Work Phone: Comment on above: [facility] [address] [place], [address] Comprehensive metabolic 2000 panel 14 mg/dL Normal 7-18 Comprehensi ve Internal Medicine Work Phone: Comment on above: [facility] [address] [place], [place], [address] Comprehensive metabolic 2000 panel 1.01 mg/dL Normal 0.70-1.30 Comprehensi ve Internal Medicine Work Phone: Comment on above: The validity of the calculated GFR AND GFRAA in patients over70 years has not been determined. Clinical correlation isessential. [facility] [address] [place], [place], [address] Comprehensive metabolic 2000 panel 76 mL/min Normal Comprehensi ve Internal Medicine Work Phone: Comment on above: Non- GFR Calc [facility] [address] [place], [place], [address] Comprehensive metabolic 2000 panel 92 mL/min Normal Comprehensi ve Internal Medicine Work Phone: Comment on above: GFR Calc [facility] [address] [place], [place], [address] Comprehensive metabolic 2000 panel 13.9 {RATIO} Normal 10-20 Comprehensi ve Internal Medicine Work Phone: Comment on above: [facility] [address] [place], [place], [address] Comprehensive metabolic 2000 panel 7.4 g/dL Normal 6.4-8.2 Comprehensi ve Internal Medicine Work Phone: Comment on above: [facility] [address] [place], [place], [address] Comprehensive metabolic 2000 panel 4.0 g/dL Normal 3.4-5.0 Comprehensi ve Internal Medicine Work Phone: Comment on above: [facility] [address] [place], [place], [address] Comprehensive metabolic 2000 panel 3.4 g/dL Normal 2.3-3.5 Comprehensi ve Internal Medicine Work Phone: Comment on above: [facility] [address] [place], [place], [address] Comprehensive metabolic 2000 panel 27.0 mmol/L Normal 21.0-32.0 Comprehensi ve Internal Medicine Work Phone: Comment on above: [facility] [address] [place], [place], [address] Comprehensive metabolic 2000 panel 143 mmol/L Normal 136-145 Comprehensi ve Internal Medicine Work Phone: Comment on above: [facility] [address] [place], [place], [address] Comprehensive metabolic 2000 panel 1.2 {RATIO} Normal 0.9-2.4 Comprehensi ve Internal Medicine Work Phone: Comment on above: [facility] [address] [place], [place], [address] Comprehensive metabolic 2000 panel 8.6 mg/dL Normal 8.5-10.1 Comprehensi ve Internal Medicine Work Phone: Comment on above: [facility] [address] [place], [place], [address] Comprehensive metabolic 2000 panel 109 mg/dL Normal 70-110 Comprehensi ve Internal Medicine Work Phone: Comment on above: [facility] [address] [place], [place], [address] Comprehensive metabolic 2000 panel 7 1 Normal 5-15 Comprehensi ve Internal Medicine Work Phone: Comment on above: [facility] [address] [place], [place], [address] Comprehensive metabolic 2000 panel 4.7 mmol/L Normal 3.5-5.1 Comprehensi ve Internal Medicine Work Phone: Comment on above: [facility] [address] [place], [place], [address] Comprehensive metabolic 2000 panel 118 U/L Normal 50-136 Comprehensi ve Internal Medicine Work Phone: Comment on above: [facility] [address] [place], [place], [address] Comprehensive metabolic 2000 panel 109 mmol/L Abnormal 98-107 Comprehensi ve Internal Medicine Work Phone: Comment on above: [facility] [address] [place], [place], [address] Lipid ProfileOrdered By: Marely tem on 11-07-2015 Cholesterol in HDL mass conc 39 mg/dL Abnormal Comprehensive Internal Medicine Work Phone: Comment on above: Reference Range HDL <40 mg/dL Low HDL Cholesterol HDL >or= 60 mg/dL High HDL Cholesterol [facility] [address] [place], [place], [address] Cholesterol in LDL mass conc 53 mg/dL Normal 0-130 Comprehensive Internal Medicine Work Phone: Cholesterol in LDL mass conc 53 mg/dL Normal 0-130 Comprehensive Internal Medicine Work Phone: Comment on above: [facility] [address] [place], [place], [address] Cholesterol in VLDL mass conc 17 mg/dL Normal 5-40 Comprehensive Internal Medicine Work Phone: Comment on above: [facility] [address] [place], [place], [address] Cholesterol mass conc 109 mg/dL Normal Com prehensive Internal Medicine Work Phone: Comment on above: <200 mg/dL Desirable 200-240 mg/dL Borderline >240 mg/dL High Risk [facility] [address] [place], [place], [address] Triglyceride mass conc 83 mg/dL Normal Comprehensive Internal Medicine Work Phone: Comment on above: Serum Triglycerides Reference Interval Normal <150 mg/dL Borderline high 150 - 199 mg/dL High 200 - 499 mg/dL Very High > or = 500 mg/dL [facility] [address] [place], [place], [address] MicroalbOrdered By: Gerson last on 11-07-2015 MALB:CREAT 19.1 {mg/g_CRE} Normal Comprehen sive Internal Medicine Work Phone: MICROALBUMIN,UR 21.6 mg/L Normal Comprehen sive Internal Medicine Work Phone: UR CREAT 113.00 mg/dL Normal Comprehensiv e Internal Medicine Work Phone: Microalb 113.00 mg/dL Normal Comprehensiv e Internal Medicine Work Phone: Comment on above: [facility] [address] [place], [place], [address] Microalb 19.1 {mg/g_CRE} Normal Comprehen sive Internal Medicine Work Phone: Comment on above: [facility] [address] [place], [place], [address] Microalb 21.6 mg/L Normal Comprehensive [facility] Medicine Work Phone: Comment on above: [facility] [address] [place], [place], [address] Thyroid Stim Hormone (TSH)Or dered By: Piggery Worker on 11-07-2015 Thyrotropin Qn 1.83 {uIU/mL} Normal 0.358-3.74 Compreh ensive Internal Medicine Work Phone: Comment on above: [facility] [address] [place], [place], [address] Urinalysis, CompleteOrdered By: Piggery Worker on 11-07-2015 BACTERIA RARE Normal Comprehensive Internal Medicine Work Phone: Comment on above: How was Urine Obtain ed? CLEAN [facility] [address] [place], [place], [address] CLARITY Clear Normal Comprehensive Internal Medicine Work Phone: Comment on above: How was Urine Obtain ed? CLEAN [facility] [address] [place], [address] COLOR Yellow Normal Comprehensive Internal Medicine Work Phone: Comment on above: How was Urine Obtain ed? [facility] [address] [place], [address] GLUCOSE, UR Normal Normal Comprehensive Internal Medicine Work Phone: Comment on above: How was Urine Obtain ed? [facility] Qgghspctco8832 [place], [address] pH UR 6.0 1 Normal 5.0 - 8.0 [facility] Work Phone: Comment on above: How was Urine Obtain ed? [facility] Nrjigmadnb3750 Jose [place], [address] PROT DIPSTX Negative Normal [facility] Work Phone: Comment on above: How was Urine Obtain ed? [facility] Ibsjchmhtj2496 [place], [address] Protein mass conc (U) Negative Normal Com prehensive Internal Medicine Work Phone: Comment on above: How was Urine Obtain ed? [facility] Kcvvifgxug9079 [place], [address] RBC #/vol (U) 0 SEEN Normal 0-5 Comprehensi ve Internal Medicine Work Phone: Comment on above: How was Urine Obtain ed? [facility] Guyrbklwnq2500 [place], [address] RBC Test strip #/vol (U) 0 SEEN Normal 0-5 [facility] Work Phone: SP.GR. DIPSTX 1.015 1 Normal 1.002-1.03 0 [facility] Work Phone: Comment on above: How was Urine Obtain ed? [facility] Eshrpvxzlb5974 [place], [address] WBC 0 SEEN Normal 0-5 [facility] Work Phone: Comment on above: How was Urine Obtain ed? CLEAN [facility] Ltvsmadjaf5115 Jose Armando Fam. [place], [place], [id number] PSA,Total- DiagnosticOrdered By: Piggery Worker on 11-06-2015 PSA, DIAGNOSTIC 0.29 ng/mL Normal 0.0-4.0 [facility] Internal Medicine Work Phone: Comment on above: This test was perfor med using the TPSA assay method for theDimension chemistry system. Values obtained with differentassay methods cannot be used interchangably.When changing PSA assays in the course of monitoring apatient, additional sequential testing should be carriedout to confirm baseline values. PSA,Total- Diagnostic 0.29 ng/mL Normal 0.0-4.0 [facility] prehensive Internal Medicine Work Phone: Comment on above: This test was perfor med using the TPSA assay method for theDimension chemistry system. Values obtained with differentassay methods cannot be used interchangably.When changing PSA assays in the course of monitoring apatient, additional sequential testing should be carriedout to confirm baseline values. [facility] Qftxnetdfh7509 Jose Armando Fam. [place], [place], [address] Blood Glucose , Office ([phone])Ordered By: Valentina Lamb on 07-08-2015 Glucose Glucometer molar conc (BldC) 166 1 Normal [facility] Work Phone: HgA1C , Office ([phone])Ordere d By: Isabelle Patiño on 07-08-2015 Hemoglobin A1c/Hemoglobin.total mass fraction (Bld) 6.6 % Normal 4.6 - 7.1 Comprehensiv e Internal Medicine Work Phone: CALCIFIDIOL ([phone]) VIT D 25 Ordered By: Piggery Worker on 06-05-2015 25-Hydroxyvitamin D2+25-Hydroxyvitamin D3 mass conc 84.0 ng/mL Normal 30.0-100.0 [facility] Work Phone: Comment on above: Vitamin D deficiency has been defined by the [place] ofMedicine and an Endocrine Society practice guideline as alevel of serum 25-OH vitamin D less than 20 ng/mL (1,2).The Endocrine Society went on to further define vitamin Dinsufficiency as a level between 21 and 29 ng/mL (2).1. IOM ([place] of Medicine). 2010. Dietary reference intakes for calcium and D. [place]: The National Academies Press.2. Tahmina MF, Gabriela OVALLES, Becki GILBERT, et al. Evaluation, treatment, and prevention of vitamin D deficiency: an Endocrine Society clinical practice guideline. JCEM. 2010; 96(7):1911-30. PATIENT WAS FASTINGP ERFORMED BY: [employer]70 Cash Check CardFirstHealth [facility] [id number] CBC W/AUTO DIFF WBC (69988)O rdered By: Piggery Worker on 06-05-2015 Basophils #/vol (Bld) 0.0 {x10E3/uL} Normal 0.0-0.2 [facility] Work Phone: Comment on above: PATIENT WAS FASTINGP ERFORMED BY: [employer]70 Cash Check CardFirstHealth [facility] Hospital [id number] Information: [id number] Basophils (Bld) [#/Vol] 0.0 10*3/uL Normal 0.0-0.2 [facility]; [facility] Work Phone: Basophils Auto #/vol (Bld) 0.0 {x10E3/uL} Normal 0.0-0.2 [facility] Work Phone: Basophils/100 WBC (Bld) 0 % Normal [facility] Work Phone: Comment on above: PATIENT WAS FASTINGP ERFORMED BY: [employer] [place]6[address] GoustoAtrium Health Carol[facility] [id number] Information: [id number] Basophils/100 WBC Auto (Bld) 0 % Normal [facility] Work Phone: Eosinophils #/vol (Bld) 0.1 {x10E3/uL} Normal 0.0-0.4 [facility] Work Phone: Comment on above: PATIENT WAS FASTINGP ERFORMED BY: [employer]70 [facility] [id number] Information: [id number] Eosinophils (Bld) [#/Vol] 0.1 10*3/uL Normal 0.0-0.4 [facility]; [facility] Work Phone: Eosinophils Auto #/vol (Bld) 0.1 {x10E3/uL} Normal 0.0-0.4 [facility] Work Phone: Eosinophils/100 WBC (Bld) 1 % Normal [facility] Work Phone: Comment on above: PATIENT WAS FASTINGP ERFORMED BY: CIERRA [address] [id number] Information: [id number] Eosinophils/100 WBC Auto (Bld) 1 % Normal [facility] Work Phone: Erythrocyte distribution width Auto Ratio (RBC) 13.6 % Normal 12.3-15.4 [facility] Work Phone: Erythrocyte distribution width Ratio (RBC) 13.6 % Normal 12.3-15.4 [facility] Work Phone: Comment on above: PATIENT WAS FASTINGP ERFORMED BY: [address] [id number] Information: [id number] Hematocrit Auto Volume Fraction (Bld) 40.7 % Normal 37.5-51.0 [facility] Internal Medicine Work Phone: Hematocrit Volume Fraction (Bld) 40.7 % Normal 37.5-51.0 [facility] Work Phone: Comment on above: PATIENT WAS FASTINGP ERFORMED BY: CIERRA [place] [id number] [facility] [id number] Information: [id number] Hemoglobin mass conc (Bld) 13.5 g/dL Normal 12.6-17.7 [facility] Work Phone: Comment on above: PATIENT WAS FASTINGP ERFORMED BY: [address] Ha[address] StreetDublin [place] [id number] Information: [id number] Immature granulocytes #/vol (Bld) 0.0 {x10E3/uL} Normal 0.0-0.1 [facility] Work Phone: Comment on above: PATIENT WAS FASTINGP ERFORMED BY: [place] 6695570 [facility] [id number] Information: [id number] Immature granulocytes (Bld) [#/Vol] 0.0 10*3/uL Normal 0.0-0.1 [facility]; [facility] Work Phone: Immature granulocytes/100 WBC (Bld) 0 % Normal [facility] Work Phone: Comment on above: PATIENT WAS FASTINGP ERFORMED BY: [address] [id number] Information: [id number] Lymphocytes #/vol (Bld) 1.4 {x10E3/uL} Normal 0.7-3.1 [facility] Work Phone: Comment on above: PATIENT WAS FASTINGP ERFORMED BY: [address] [id number] Information: [id number] Lymphocytes (Bld) [#/Vol] 1.4 10*3/uL Normal 0.7-3.1 [facility]; [facility] Work Phone: Lymphocytes Auto #/vol (Bld) 1.4 {x10E3/uL} Normal 0.7-3.1 [facility] Work Phone: Lymphocytes/100 WBC (Bld) 15 % Normal [facility] Work Phone: Comment on above: PATIENT WAS FASTINGP ERFORMED BY: [place] [id number] [facility] [id number] Information: [id number] Lymphocytes/100 WBC Auto (Bld) 15 % Normal [facility] Work Phone: MCH Auto Entitic mass (RBC) 30.4 pg Normal 26.6-33.0 [facility] Work Phone: MCH Entitic mass (RBC) 30.4 pg Normal 26.6-33.0 [facility] Work Phone: Comment on above: PATIENT WAS FASTINGP ERFORMED BY: [facility] [id number] Information: [id number] MCHC Auto mass conc (RBC) 33.2 g/dL Normal 31.5-35.7 [facility] Work Phone: MCHC mass conc (RBC) 33.2 g/dL Normal 31.5-35.7 Comp [facility] Internal Medicine Work Phone: Comment on above: PATIENT WAS FASTINGP ERFORMED BY: [facility] [id number] Information: [id number] MCV Auto Entitic volume (RBC) 92 fL Normal 79-97 [facility] Work Phone: MCV Entitic volume (RBC) 92 fL Normal 79-97 [facility] Work Phone: Comment on above: PATIENT WAS FASTINGP ERFORMED BY: [employer] [id number] Information: [id number] Monocytes #/vol (Bld) 0.5 {x10E3/uL} Normal 0.1-0.9 [facility] Work Phone: Comment on above: PATIENT WAS FASTINGP ERFORMED BY: [facility]6370 [facility] [id number] Information: [id number] Monocytes (Bld) [#/Vol] 0.5 10*3/uL Normal 0.1-0.9 [facility]; [facility] Work Phone: Monocytes Auto #/vol (Bld) 0.5 {x10E3/uL} Normal 0.1-0.9 [facility] Work Phone: Monocytes/100 WBC (Bld) 6 % Normal [facility] Work Phone: Comment on above: PATIENT WAS FASTINGP ERFORMED BY: CIERRA Shieldslin6370 [facility] [id number] Information: [id number],[id number] Monocytes/100 WBC Auto (Bld) 6 % Normal [facility] Work Phone: Neutrophils #/vol (Bld) 7.0 {x10E3/uL} Normal 1.4-7.0 [facility] Work Phone: Comment on above: PATIENT WAS FASTINGP ERFORMED BY: CIERRA Shieldslin6370 [facility] [id number] Information: [id number] Neutrophils (Bld) [#/Vol] 7.0 10*3/uL Normal 1.4-7.0 [facility]; [facility] Work Phone: Neutrophils Auto #/vol (Bld) 7.0 {x10E3/uL} Normal 1.4-7.0 [facility] Work Phone: Neutrophils/100 WBC (Bld) 78 % Normal [facility] Work Phone: Comment on above: PATIENT WAS FASTINGP ERFORMED BY: CIERRA Shieldslin6370 [facility] [id number] Information: [id number] Neutrophils/100 WBC Auto (Bld) 78 % Normal [facility] Work Phone: Platelets #/vol (Bld) 180 {x10E3/uL} Normal 150-379 [facility] Work Phone: Comment on above: PATIENT WAS FASTINGP ERFORMED BY: CIERRA Shieldslin6370 [facility] [id number] Information: [id number] Platelets (Bld) [#/Vol] 180 10*3/uL Normal 150-379 [facility]; [facility] Work Phone: Platelets Auto #/vol (Bld) 180 {x10E3/uL} Normal 150-379 [facility] Work Phone: RBC #/vol (Bld) 4.44 {x10E6/uL} Normal 4.14-5.80 Comp [facility] centerensive Internal [facility] Work Phone: Comment on above: PATIENT WAS FASTINGP ERFORMED BY: [employer]6370 [facility] [id number] Information: [id number] RBC (Bld) [#/Vol] 4.44 10*6/uL Normal 4.14-5.80 Compr [facility] Internal Medicine; [facility] Work Phone: RBC Auto #/vol (Bld) 4.44 {x10E6/uL} Normal 4.14-5.80 [facility] Work Phone: WBC #/vol (Bld) 9.0 {x10E3/uL} Normal 3.4-10.8 [facility] Internal Medicine Work Phone: Comment on above: PATIENT WAS FASTINGP ERFORMED BY: [employer] [place]6370 [facility] [id number] Information: [id number] WBC (Bld) [#/Vol] 9.0 10*3/uL Normal 3.4-10.8 Compre [facility] Internal Medicine; [facility] Work Phone: WBC Auto #/vol (Bld) 9.0 {x10E3/uL} Normal 3.4-10.8 [facility] Work Phone: LIPID PANEL ([id number])Ordered B y: Piggery Worker on 06-05-2015 Cholesterol in HDL mass conc 36 mg/dL Abnormal [facility] Work Phone: Comment on above: According to ATP-III Guidelines, HDL-C >59 mg/dL is considered anegative risk factor for CHD. PATIENT WAS FASTINGP ERFORMED BY: [employer] [place]6370 [facility] [id number] Cholesterol in LDL mass conc 61 mg/dL Normal 0-99 [facility] Work Phone: Comment on above: PATIENT WAS FASTINGP ERFORMED BY: CIERRA Ellis6370 [facility] [id number] Cholesterol in LDL/Cholesterol in HDL mass ratio 1.7 {ratio_units} Normal 0.0-3.6 [facility] Work Phone: Comment on above: LDL/HDL Ratio Men Wo men 1/2 Avg.Risk 1.0 1.5 Avg.Risk 3.6 3.2 2X Avg.Risk 6.2 5.0 3X Avg.Risk 8.0 6.1 PATIENT WAS FASTINGP ERFORMED BY: CIERRA Ellis6370 [facility] [id number] Cholesterol in VLDL mass conc 13 mg/dL Normal 5-40 [facility] Work Phone: Comment on above: PATIENT WAS FASTINGP ERFORMED BY: CIERRA Ellis6370 [facility] [id number] Cholesterol mass conc 110 mg/dL Normal 100-199 [facility] prehensive Internal Medicine Work Phone: Comment on above: PATIENT WAS FASTINGP ERFORMED BY: CIERRA Ellis6370 [facility] [id number] Triglyceride mass conc 64 mg/dL Normal 0-149 [facility] Work Phone: Comment on above: PATIENT WAS FASTINGP ERFORMED BY: CIERRA Ellis6370 [facility] [id number] METABOLIC PANEL, COMPREHENSI VE ([id number])Ordered By: Piggery Worker on 06-05-2015 Albumin mass conc 4.0 g/dL Normal 3.5-4.8 Compreh ensive Internal Medicine Work Phone: Comment on above: PATIENT WAS FASTINGP ERFORMED BY: CIERRA Shieldslin6370 [facility] [id number] Albumin/Globulin mass ratio 1.7 {ratio} Normal 1.1-2.5 [facility] Work Phone: Comment on above: PATIENT WAS FASTINGP ERFORMED BY: CIERRA Shieldslin6[address] [facility] [place] [id number] ALP [Catalytic activity/Vol] 110 U/L Normal 39-117 [facility]; [facility] Work Phone: ALP enzyme act/vol 110 [iU]/L Normal 39-117 [facility] Internal Medicine Work Phone: Comment on above: PATIENT WAS FASTINGP ERFORMED BY: CIERRA Barajas Jvhglo4160 [address] [facility] [place] [id number] ALT [Catalytic activity/Vol] 15 U/L Normal 0-44 [facility]; [facility] Work Phone: ALT enzyme act/vol 15 [iU]/L Normal 0-44 [facility] Internal Medicine Work Phone: Comment on above: PATIENT WAS FASTINGP ERFORMED BY: CIERRA Shieldslin6370 [facility] [id number] AST [Catalytic activity/Vol] 21 U/L Normal 0-40 [facility]; [facility] Work Phone: AST enzyme act/vol 21 [iU]/L Normal 0-40 [facility] Internal Medicine Work Phone: Comment on above: PATIENT WAS FASTINGP ERFORMED BY: CIERRA Shieldslin6370 [facility] [id number] Bilirubin mass conc 1.0 mg/dL Normal 0.0-1.2 Compr [facility] Internal Medicine Work Phone: Comment on above: PATIENT WAS FASTINGP ERFORMED BY: [facility]ER[facility]St[facility] Faqbde6136 [facility] [id number] Calcium mass conc 9.1 mg/dL Normal 8.6-10.2 Compreh [facility] Internal Medicine Work Phone: Comment on above: PATIENT WAS FASTINGP ERFORMED BY: CIERRA Barajas Vgxbbh6511 [facility] [id number] Chloride molar conc 106 mmol/L Normal 97-108 Compr [facility] Internal Medicine Work Phone: Comment on above: PATIENT WAS FASTINGP ERFORMED BY: CIERRA Barajas Vssplh5773 [facility] [id number] CO2 molar conc 21 mmol/L Normal 18-29 Comprehens shawn Internal Medicine Work Phone: Comment on above: PATIENT WAS FASTINGP ERFORMED BY: CIERRA [employer] Ndpftw1054 [facility] [id number] Creatinine mass conc 0.95 mg/dL Normal 0.76-1.27 Comp rehensive Internal Medicine Work Phone: Comment on above: PATIENT WAS FASTINGP ERFORMED BY: CIERRA LabCoInspira Medical Center VinelandGcunji1820 [facility] [id number] GFR/1.73 sq M predicted among blacks CKD-EPI vol rate/area (S/P/Bld) 88 mL/min/1.73 Normal Comprehensiv e Internal Medicine Work Phone: Comment on above: PATIENT WAS FASTINGP ERFORMED BY: [facility] LabSt. [facility] Gqrkku6973 [facility] [id number] GFR/1.73 sq M predicted among non-blacks CKD-EPI vol rate/area (S/P/Bld) 76 mL/min/1.73 Normal [facility] Work Phone: Comment on above: PATIENT WAS FASTINGP ERFORMED BY: CIERRA TejaSt. [facility] Center Upbhcx7736 [facility] [id number] Globulin Calculated mass conc (S) 2.4 g/dL Normal 1.5-4.5 [facility] Work Phone: Globulin mass conc (S) 2.4 g/dL Normal 1.5-4.5 [facility] Work Phone: Comment on above: PATIENT WAS FASTINGP ERFORMED BY: CIERRA [employer] Vvchlz4220 [facility] [id number] Glucose mass conc 108 mg/dL Abnormal 65-99 Compreh ensive Internal Medicine Work Phone: Comment on above: PATIENT WAS FASTINGP ERFORMED BY: CIERRA [employer] Gikbgu5285 [facility] [id number] Potassium molar conc 4.7 mmol/L Normal 3.5-5.2 Comp rehensive Internal Medicine Work Phone: Comment on above: PATIENT WAS FASTINGP ERFORMED BY: CIERRA Alicia Ellis6[address] GoustoAtrium Health Carolinas [facility] Center [id number] Protein mass conc 6.4 g/dL Normal 6.0-8.5 Compreh ensive Internal Medicine Work Phone: Comment on above: PATIENT WAS FASTINGP ERFORMED BY: CIERRA Alicia Ellis6370 [facility] [id number] Sodium molar conc 143 mmol/L Normal 134-144 Compreh ensive Internal Medicine Work Phone: Comment on above: PATIENT WAS FASTINGP ERFORMED BY: CIERRA Jenncheri ShieldsHkjhsr2472 [facility] [id number] Urea nitrogen mass conc 12 mg/dL Normal 8-27 [facility] Work Phone: Comment on above: PATIENT WAS FASTINGP ERFORMED BY: CIERRA Jenncheri ShieldsXxoruh1187 [facility] [id number] Urea nitrogen/Creatinine mass ratio 13 mg/mg Normal 10-22 [facility] Work Phone: Comment on above: PATIENT WAS FASTINGP ERFORMED BY: CIERRA TejaTierra ShieldsFktjjw6569 [facility] [id number] MICROALBUMINOrdered By: Syst em Wharf Operator on 06-05-2015 Albumin DL <= 20 mg/L mass conc (U) 25.0 ug/mL Abnormal 0.0-17.0 [facility] Work Phone: Comment on above: PATIENT WAS FASTINGP ERFORMED BY: CIERRA Jenn Cyswus0522 [address] [facility] [place] [id number] Albumin/Creatinine mass ratio (U) 15.0 {mg/g_creat} Normal 0.0-30.0 [facility] Work Phone: Comment on above: PATIENT WAS FASTINGP ERFORMED BY: CIERRA TejaTierra Oobojr9398 [address] [facility] [id number] Creatinine mass conc (U) 166.4 mg/dL Normal 22.0-328.0 [facility] Work Phone: Comment on above: PATIENT WAS FASTINGP ERFORMED BY: [facility] Odthkl5975 Khoury RoadDublin [place] [id number] Microscopic ExaminationOrder ed By: Piggery Worker on 06-05-2015 Bacteria LM.HPF #/area (Urine sed) None seen Normal [facility] Work Phone: Comment on above: PATIENT WAS FASTINGP ERFORMED BY: CB [facility] Yhfthq6849 Khoury RoadDublin [place] [id number] Epithelial cells LM.HPF #/area (Urine sed) 0-10 Normal 0 - 10 [facility] Work Phone: Comment on above: PATIENT WAS FASTINGP ERFORMED BY: CIERRA [facility] Jwwoxt7983 Khoury RoadDublin [place] [id number] Mucus LM Ql (Urine sed) Present Normal [facility] Work Phone: Mucus Ql (Urine sed) Present Normal Comp rehensive Internal Medicine Work Phone: Comment on above: PATIENT WAS FASTINGP ERFORMED BY: CIERRA [facility] Mccwpf5585 Khoury RoadDublin [place] [id number] RBC LM.HPF #/area (Urine sed) 0-2 Normal 0 - 2 [facility] Work Phone: Comment on above: PATIENT WAS FASTINGP ERFORMED BY: CIERRA [facility] Odhntf9539 [address]y RoadDublin [place] [id number] WBC LM.HPF #/area (Urine sed) 0-5 Normal 0 - 5 [facility] Work Phone: Comment on above: PATIENT WAS FASTINGP ERFORMED BY: CIERRA [facility] Hwlnno0192 Khoury RoadDublin [place] [id number] TSH ([id number])Ordered By: Delma m Wharf Operator on 06-05-2015 Thyrotropin Qn 1.580 {uIU/mL} Normal 0.450-4.50 0 [facility] Work Phone: Comment on above: PATIENT WAS FASTINGP ERFORMED BY: CB [facility] Qytcga4977 Khoury RoadDublin [place] [id number] URINALYSIS, W/ MICRO ([id number]) Ordered By: Piggery Worker on 06-05-2015 Appearance Nom (U) Clear Normal Compre hensive Internal Medicine Work Phone: Comment on above: PATIENT WAS FASTINGP ERFORMED BY: CIERRA LabTierra ShieldsWpirhb5841 Khoury RoadDublin [place] [id number] Bilirubin Ql (U) Negative Normal Comprehe nsive Internal Medicine Work Phone: Comment on above: PATIENT WAS FASTINGP ERFORMED BY: CIERRA LabTierra ShieldsJcgurg4025 Khoury RoadDublin [place] [id number] Bilirubin Ql (U) Negative Normal Comprehe nsive Internal Medicine; [facility] Work Phone: Color Nom (U) Yellow Normal Comprehensi ve Internal Medicine Work Phone: Comment on above: PATIENT WAS FASTINGP ERFORMED BY: CIERRA Shieldslin6370 [address] RoadDublin [place] [id number] Glucose Ql (U) Negative Normal Comprehens shawn Internal Medicine Work Phone: Comment on above: PATIENT WAS FASTINGP ERFORMED BY: CIERRA LabTierra ShieldsWbhguh1862 Khour[address] RoadDublin [place] [id number] Glucose Ql (U) Negative Normal Comprehens shawn Internal Medicine; [facility] Work Phone: Hemoglobin Ql (U) Negative Normal Compreh ensive Internal Medicine Work Phone: Comment on above: PATIENT WAS FASTINGP ERFORMED BY: CIERRA LabTierra ShieldsZnygnx9925 K[address] RoadDublin [place] [id number] Hemoglobin Ql (U) Negative Normal Compreh ensive Internal Medicine; [facility] Work Phone: Hemoglobin Test strip Ql (U) Negative Normal [facility] Work Phone: Ketones Ql (U) Negative Normal Comprehens shawn Internal Medicine Work Phone: Comment on above: PATIENT WAS FASTINGP ERFORMED BY: CIERRA LabTierra ShieldsJdfyno8848 K[address] RoadDublin [place] [id number] Ketones Ql (U) Negative Normal Comprehens shawn Internal Medicine; [facility] Work Phone: Leukocyte esterase Test strip Ql (U) Negative Normal [facility] Work Phone: Comment on above: PATIENT WAS FASTINGP ERFORMED BY: CIERRA LabCocheri ShieldsAqcbww0445 K[address] RoadDublin [place] [id number] Leukocyte esterase Test strip Ql (U) Negative Normal [facility]; [facility] Work Phone: Microscopic observation LM Nom (Urine sed) MICRON Normal [facility] Work Phone: Comment on above: Microscopic follows if indicated. PATIENT WAS FASTINGP ERFORMED BY: CIERRA [facility] Kfbscy4723 Khoury RoadDublin [place] [id number] Microscopic observation LM Nom (Urine sed) See below: Normal [facility] Work Phone: Comment on above: Microscopic was sander cated and was performed. PATIENT WAS FASTINGP ERFORMED BY: CIERRA LabTierra ShieldsAupjco8937 K[address] RoadDublin [place] [id number] Nitrite Ql (U) Negative Normal Comprehens shawn Internal Medicine Work Phone: Comment on above: PATIENT WAS FASTINGP ERFORMED BY: CIERRA LabTierra ShieldsNjxwda6876 K[address] RoadDublin [place] [id number] Nitrite Ql (U) Negative Normal Comprehens shawn Internal Medicine; [facility] Work Phone: Nitrite Test strip Ql (U) Negative Normal [facility] Work Phone: pH (U) 6.5 [pH] Normal 5.0-7.5 [facility] Work Phone: Comment on above: PATIENT WAS FASTINGP ERFORMED BY: CIERRA [facility] Ratecb6790 [address] RoadDublin [place] [id number] pH Test strip (U) 6.5 [pH] Normal 5.0-7.5 Compreh ensive Internal Medicine Work Phone: Protein Ql (U) Negative Normal Comprehens shawn Internal Medicine Work Phone: Comment on above: PATIENT WAS FASTINGP ERFORMED BY: CIERRA [facility] Jrjvcb3806 K[address]y RoadDublin [place] [id number] Protein Ql (U) Negative Normal Comprehens shawn [facility]; [facility] Work Phone: Protein Test strip Ql (U) Negative Normal [facility] Work Phone: Specific gravity Relative Density (U) 1.025 1 Normal 1.005-1.03 0 [facility] Work Phone: Comment on above: PATIENT WAS FASTINGP ERFORMED BY: [employer] [place]6370 [facility] [id number] Urobilinogen (U) [Mass/Vol] 1.0 mg/dL Normal 0.0-1.9 [facility]; [facility] Work Phone: Urobilinogen Test strip mass conc (U) 1.0 mg/dL Normal 0.0-1.9 Comprehensiv e Internal Medicine Work Phone: Comment on above: PATIENT WAS FASTINGP ERFORMED BY: [employer] [place]6370 [facility] Check CardFirst[facility] [id number] Blood Glucose , Office (8296 2)Ordered By: Richelle Campos on 04-10-2015 Glucose Glucometer molar conc (BldC) 127 1 Normal [facility] Work Phone: HgA1C , Office (28806)Ordere d By: Richelle Campos on 04-10-2015 Hemoglobin A1c/Hemoglobin.total mass fraction (Bld) 6.2 % Normal 4.6 - 7.1 Comprehensiv e [facility] Medicine Work Phone: Pathology ReportOrdered By: Piggery Worker on 01-24-2015 See Note MATER Normal Comprehensive [...] ISIDENTIFIED ON ROUTINELY STAINED SECTIONS.Pathologist provided ICD-9:709.8CPT .665339 PERFORMED BY: INGRIS [facility] [place] Cyto Nnhrf66487 [facility] [id number] BY: [facility] Dermatopathology Dhnolrb013 [address] [id number] BY: SEBASTIEN [facility] Udriouhve892 [facility] [id number] Information: [id number] Blood Glucose , Office (8296 2)Ordered By: Richelle Campos on 01-09-2015 Glucose Glucometer molar conc (BldC) 185 1 Normal [facility] Work Phone: HgA1C , Office (74686)Ordere d By: Richelle Campos on 01-09-2015 Hemoglobin A1c/Hemoglobin.total mass fraction (Bld) 6.4 % Normal 4.6 - 7.1 Comprehensiv e [facility] Medicine Work Phone: PSA,Total - Annual ScreenOrd ered By: Piggery Worker on 10-31-2014 PSA,Total - Annual Screen 0.37 ng/mL Normal 0.00-4.00 [facility] Work Phone: Comment on above: This test was perfor med using the TPSA assay method for [employer] chemistry system. Values obtained with differentassay methods cannot be used interchangably.When changing PSA assays in the course of monitoring apatient, additional sequential testing should be carriedout to confirm baseline values. Test performed at:[facility] Buqhhexrpo[address] [place], [place] [address] Hemoglobin Glyclated (HGB A1 C) (35572)Ordered By: Piggery Worker on 10-10-2014 Hemoglobin A1c/Hemoglobin.total mass fraction (Bld) 6.6 % Abnormal 4.8-5.6 Comprehensiv e Internal Medicine Work Phone: Comment on above: . Increased risk for diabetes: 5.7 - 6.4 Diabetes: >6.4 Glycemic control for adults with diabetes: <7.0 PATIENT NOT FASTINGP ERFORMED BY: [facility] Kfdwka3638 [facility] [id number] Information: [id number] Pathology ReportOrdered By: Piggery Worker on 07-16-2014 See Note MATER Normal Comprehensive [...] ARESUBMITTED IN A SINGLE CASSETTE.COR/JASPathologist provided ICD-9:078.10CPT .177465 PERFORMED BY: KWCYT [facility] [place] [facility]to Cgrmr99512 [facility] [id number] BY: [facility] Dermatopathology Cnetjta970 [address] [id number] Information: [id number] Blood Glucose , Office (0539 2)Ordered By: Valentina Lamb on 07-05-2014 Glucose Glucometer molar conc (BldC) 107 1 Normal [facility] Work Phone: HgA1C , Office (88720)Ordere d By: Valentina Lamb on 07-05-2014 Hemoglobin A1c/Hemoglobin.total mass fraction (Bld) 6.6 % Normal 4.6 - 7.1 Comprehensiv e [facility] Work Phone: Blood Glucose , Office (0003 2)Ordered By: Marilynn Chanel on 04-04-2014 Glucose Glucometer molar conc (BldC) 159 1 Normal [facility] Work Phone: HgA1C , Office (35677)Ordere d By: Marilynn Chanel on 04-04-2014 Hemoglobin A1c/Hemoglobin.total mass fraction (Bld) 6.5 % Normal 4.6 - 7.1 Comprehensiv e [facility] Medicine Work Phone: CBC WITH MANUAL DIFF (45355) Ordered By: Piggery Worker on 01-04-2014 Basophils #/vol (Bld) 0.0 {x10E3/uL} Normal 0.0-0.2 [facility] Work Phone: Comment on above: PATIENT WAS FASTINGP ERFORMED BY: [employer] [facility] [id number] Information: [id number] Basophils (Bld) [#/Vol] 0.0 10*3/uL Normal 0.0-0.2 [facility]; [facility] Work Phone: Basophils Auto #/vol (Bld) 0.0 {x10E3/uL} Normal 0.0-0.2 [facility] Work Phone: Basophils/100 WBC (Bld) 0 % Normal 0-3 [facility] Work Phone: Comment on above: PATIENT WAS FASTINGP ERFORMED BY: [employer]70 [facility] [id number] Information: [id number] Basophils/100 WBC Auto (Bld) 0 % Normal 0-3 [facility] Work Phone: Eosinophils #/vol (Bld) 0.2 {x10E3/uL} Normal 0.0-0.4 [facility] Work Phone: Comment on above: PATIENT WAS FASTINGP ERFORMED BY: [employer]6370 [facility] [id number] Information: [id number] Eosinophils (Bld) [#/Vol] 0.2 10*3/uL Normal 0.0-0.4 [facility]; [facility] Work Phone: Eosinophils Auto #/vol (Bld) 0.2 {x10E3/uL} Normal 0.0-0.4 [facility] Work Phone: Eosinophils/100 WBC (Bld) 2 % Normal 0-5 [facility] Work Phone: Comment on above: PATIENT WAS FASTINGP ERFORMED BY: CIERRA [address] [id number] Information: [id number] Eosinophils/100 WBC Auto (Bld) 2 % Normal 0-5 [facility] Work Phone: Erythrocyte distribution width Auto Ratio (RBC) 14.1 % Normal 12.3-15.4 [facility] Work Phone: Erythrocyte distribution width Ratio (RBC) 14.1 % Normal 12.3-15.4 [facility] Work Phone: Comment on above: PATIENT WAS FASTINGP ERFORMED BY: CIERRA [address] [id number] Information: [id number] Hematocrit Auto Volume Fraction (Bld) 40.5 % Normal 37.5-51.0 [facility] Internal Medicine Work Phone: Hematocrit Volume Fraction (Bld) 40.5 % Normal 37.5-51.0 [facility] Work Phone: Comment on above: PATIENT WAS FASTINGP ERFORMED BY: CIERRA [address] [id number] Information: [id number] Hemoglobin mass conc (Bld) 13.6 g/dL Normal 12.6-17.7 [facility] Work Phone: Comment on above: PATIENT WAS FASTINGP ERFORMED BY: [address] [id number] Information: [id number] Immature granulocytes #/vol (Bld) 0.0 {x10E3/uL} Normal 0.0-0.1 [facility] Work Phone: Comment on above: PATIENT WAS FASTINGP ERFORMED BY: [facility]6370 [facility] [id number] Information: [id number] Immature granulocytes (Bld) [#/Vol] 0.0 10*3/uL Normal 0.0-0.1 [facility]; [facility] Work Phone: Immature granulocytes/100 WBC (Bld) 0 % Normal 0-2 [facility] Work Phone: Comment on above: PATIENT WAS FASTINGP ERFORMED BY: [place] 6695570 [facility] [id number] Information: [id number] Lymphocytes #/vol (Bld) 1.6 {x10E3/uL} Normal 0.7-3.1 [facility] Work Phone: Comment on above: PATIENT WAS FASTINGP ERFORMED BY: [place] 6695570 [facility] [id number] Information: [id number] Lymphocytes (Bld) [#/Vol] 1.6 10*3/uL Normal 0.7-3.1 [facility]; [facility] Work Phone: Lymphocytes Auto #/vol (Bld) 1.6 {x10E3/uL} Normal 0.7-3.1 [facility] Work Phone: Lymphocytes/100 WBC (Bld) 20 % Normal - [facility] Work Phone: Comment on above: PATIENT WAS FASTINGP ERFORMED BY: [facility]6370 [facility] [id number] Information: [id number] Lymphocytes/100 WBC Auto (Bld) 20 % Normal 14-46 [facility] Work Phone: MCH Auto Entitic mass (RBC) 29.7 pg Normal 26.6-33.0 [facility] Work Phone: MCH Entitic mass (RBC) 29.7 pg Normal 26.6-33.0 [facility] Work Phone: Comment on above: PATIENT WAS FASTINGP ERFORMED BY: CIERRA [place] 6642770 [facility] [id number] Information: [id number] MCHC Auto mass conc (RBC) 33.6 g/dL Normal 31.5-35.7 [facility] Work Phone: MCHC mass conc (RBC) 33.6 g/dL Normal 31.5-35.7 Comp [facility] Internal Medicine Work Phone: Comment on above: PATIENT WAS FASTINGP ERFORMED BY: CIERRA [address] [id number] Information: [id number] MCV Auto Entitic volume (RBC) 88 fL Normal 79-97 [facility] Work Phone: MCV Entitic volume (RBC) 88 fL Normal 79-97 [facility] Work Phone: Comment on above: PATIENT WAS FASTINGP ERFORMED BY: CIERRA [place] 6642770 [facility] [id number] Information: [id number] Monocytes #/vol (Bld) 0.5 {x10E3/uL} Normal 0.1-0.9 [facility] Work Phone: Comment on above: PATIENT WAS FASTINGP ERFORMED BY: [place] 6695570 [facility] [id number] Information: [id number] Monocytes (Bld) [#/Vol] 0.5 10*3/uL Normal 0.1-0.9 [facility]; [facility] Work Phone: Monocytes Auto #/vol (Bld) 0.5 {x10E3/uL} Normal 0.1-0.9 [facility] Work Phone: Monocytes/100 WBC (Bld) 6 % Normal 4-12 [facility] Work Phone: Comment on above: PATIENT WAS FASTINGP ERFORMED BY: [facility]6370 [facility] [id number] Information: [id number] Monocytes/100 WBC Auto (Bld) 6 % Normal 4-12 [facility] Work Phone: Neutrophils #/vol (Bld) 5.6 {x10E3/uL} Normal 1.4-7.0 [facility] Work Phone: Comment on above: PATIENT WAS FASTINGP ERFORMED BY: [facility]6370 [facility] [id number] Information: [id number] Neutrophils (Bld) [#/Vol] 5.6 10*3/uL Normal 1.4-7.0 [facility]; [facility] Work Phone: Neutrophils Auto #/vol (Bld) 5.6 {x10E3/uL} Normal 1.4-7.0 [facility] Work Phone: Neutrophils/100 WBC (Bld) 72 % Normal 40-74 [facility] Work Phone: Comment on above: PATIENT WAS FASTINGP ERFORMED BY: [facility]6370 [facility] [id number] Information: [id number] Neutrophils/100 WBC Auto (Bld) 72 % Normal 40-74 [facility] Work Phone: Platelets #/vol (Bld) 176 {x10E3/uL} Normal 155-379 [facility] Work Phone: Comment on above: PATIENT WAS FASTINGP ERFORMED BY: [facility]6370 [facility] [id number] Information: [id number] Platelets (Bld) [#/Vol] 176 10*3/uL Normal 155-379 [facility]; [facility] Work Phone: Platelets Auto #/vol (Bld) 176 {x10E3/uL} Normal 155-379 [facility] Work Phone: RBC #/vol (Bld) 4.58 {x10E6/uL} Normal 4.14-5.80 [facility] Internal Medicine Work Phone: Comment on above: PATIENT WAS FASTINGP ERFORMED BY: CIERRA Ellis6370 [facility] [id number] Information: [id number] RBC (Bld) [#/Vol] 4.58 10*6/uL Normal 4.14-5.80 [facility] Internal Medicine; [facility] Work Phone: RBC Auto #/vol (Bld) 4.58 {x10E6/uL} Normal 4.14-5.80 [facility] Work Phone: WBC #/vol (Bld) 7.8 {x10E3/uL} Normal 3.4-10.8 [facility] Internal Medicine Work Phone: Comment on above: PATIENT WAS FASTINGP ERFORMED BY: CIERRA Ellis6370 [facility] [id number] Information: [id number] WBC (Bld) [#/Vol] 7.8 10*3/uL Normal 3.4-10.8 [facility]; [facility] Work Phone: WBC Auto #/vol (Bld) 7.8 {x10E3/uL} Normal 3.4-10.8 [facility] Work Phone: LIPID PANEL ([id number])Ordered B y: Piggery Worker on 01-04-2014 Cholesterol in HDL mass conc 38 mg/dL Abnormal [facility] Work Phone: Comment on above: According to ATP-III Guidelines, HDL-C >59 mg/dL is considered anegative risk factor for CHD. PATIENT WAS FASTINGP ERFORMED BY: CIERRA Shieldslin6370 [facility] [id number] Cholesterol in LDL mass conc 61 mg/dL Normal 0-99 [facility] Work Phone: Comment on above: PATIENT WAS FASTINGP ERFORMED BY: CIERRA Shieldslin6370 [place] [facility] [id number] Cholesterol in LDL/Cholesterol in HDL mass ratio 1.6 {ratio_units} Normal 0.0-3.6 [facility] Work Phone: Comment on above: PATIENT WAS FASTINGP ERFORMED BY: CIERRA Alicia Shieldslin[address] [facility] [place] [id number] Cholesterol in VLDL mass conc 13 mg/dL Normal 5-40 [facility] Work Phone: Comment on above: PATIENT WAS FASTINGP ERFORMED BY: CIERRA LabCocheri ShieldsGvhfvo8413 [address] [facility] [id number] Cholesterol mass conc 112 mg/dL Normal 100-199 [facility] prehensive Internal Medicine Work Phone: Comment on above: PATIENT WAS FASTINGP ERFORMED BY: CIERRA Jenncheri Edcgew9100 [facility] [id number] Triglyceride mass conc 67 mg/dL Normal 0-149 [facility] Work Phone: Comment on above: PATIENT WAS FASTINGP ERFORMED BY: CIERRA LabCo Kamulz2218 [facility] [id number] METABOLIC PANEL, COMPREHENSI VE (26608)Ordered By: Piggery Worker on 01-04-2014 Albumin mass conc 4.2 g/dL Normal 3.5-4.8 [facility] Work Phone: Comment on above: PATIENT WAS FASTINGP ERFORMED BY: CIERRA [facility] Nhbrty9361 [facility] [id number] Albumin/Globulin mass ratio 2.0 {ratio} Normal 1.1-2.5 [facility] Work Phone: Comment on above: PATIENT WAS FASTINGP ERFORMED BY: CIERRA [facility] Kwipyp1093 [address] [facility] [place] [id number] ALP [Catalytic activity/Vol] 116 U/L Normal 39-117 [facility]; [facility] Work Phone: ALP enzyme act/vol 116 [iU]/L Normal 39-117 [facility] Internal Medicine Work Phone: Comment on above: PATIENT WAS FASTINGP ERFORMED BY: CIERRA LabTierra ShieldsCshvra1413 Khoury RoadDublin [place] [id number] ALT [Catalytic activity/Vol] 16 U/L Normal 0-44 [facility]; [facility] Work Phone: ALT enzyme act/vol 16 [iU]/L Normal 0-44 [facility] Internal Medicine Work Phone: Comment on above: PATIENT WAS FASTINGP ERFORMED BY: CIERRA LabTierra ShieldsTtjkfp2434 Khoury RoadDublin [place] [id number] AST [Catalytic activity/Vol] 22 U/L Normal 0-40 [facility]; [facility] Work Phone: AST enzyme act/vol 22 [iU]/L Normal 0-40 [facility] Internal Medicine Work Phone: Comment on above: PATIENT WAS FASTINGP ERFORMED BY: CIERRA Ellis6370 [address] RoadDuin [place] [id number] Bilirubin mass conc 1.3 mg/dL Abnormal 0.0-1.2 Compr ensive Internal Medicine Work Phone: Comment on above: PATIENT WAS FASTINGP ERFORMED BY: CIERRA LabTierra ShieldsZbgrua7382 Khoury Roadblin [place] [id number] Calcium mass conc 9.0 mg/dL Normal 8.6-10.2 Compreh ensive Internal Medicine Work Phone: Comment on above: PATIENT WAS FASTINGP ERFORMED BY: CIERRA LabTierra ShieldsTbxjqj3278 [address] [facility] [place] [id number] Chloride molar conc 103 mmol/L Normal 97-108 Compr ensive Internal Medicine Work Phone: Comment on above: PATIENT WAS FASTINGP ERFORMED BY: CIERRA [facility] Ofgffy9368 [address]y RoadDublin [place] [id number] CO2 molar conc 24 mmol/L Normal 19-28 Comprehens shawn Internal Medicine Work Phone: Comment on above: PATIENT WAS FASTINGP ERFORMED BY: CIERRA LabCocheri ShieldsKzicot2029 Khoury RoadDublin [place] [id number] Creatinine mass conc 1.03 mg/dL Normal 0.76-1.27 Comp rehensive Internal Medicine Work Phone: Comment on above: PATIENT WAS FASTINGP ERFORMED BY: CIERRA [facility] Uolcqr4995 Khoury RoadUnc Health Rockinghamin [place] [id number] GFR/1.73 sq M predicted among blacks CKD-EPI vol rate/area (S/P/Bld) 81 mL/min/1.73 Normal Comprehensiv e Internal Medicine Work Phone: Comment on above: PATIENT WAS FASTINGP ERFORMED BY: CB [facility] Lnjndo5367 Khoury RoadUnc Health Rockinghamin [place] [id number] GFR/1.73 sq M predicted among non-blacks CKD-EPI vol rate/area (S/P/Bld) 70 mL/min/1.73 Normal [facility] Work Phone: Comment on above: PATIENT WAS FASTINGP ERFORMED BY: [facility] Hepjio1111 [facility] [id number] Globulin Calculated mass conc (S) 2.1 g/dL Normal 1.5-4.5 [facility] Work Phone: Globulin mass conc (S) 2.1 g/dL Normal 1.5-4.5 [facility] Work Phone: Comment on above: PATIENT WAS FASTINGP ERFORMED BY: [facility] Gbuxsp3140 [facility] [id number] Glucose mass conc 112 mg/dL Abnormal 65-99 Compreh ensive Internal Medicine Work Phone: Comment on above: PATIENT WAS FASTINGP ERFORMED BY: [facility] Texzpz6500 [address] [facility] [place] [id number] Potassium molar conc 4.6 mmol/L Normal 3.5-5.2 Comp rehensive Internal Medicine Work Phone: Comment on above: PATIENT WAS FASTINGP ERFORMED BY: [facility] Onhrmp7218 [facility] [place] [id number] Protein mass conc 6.3 g/dL Normal 6.0-8.5 Compreh ensive Internal Medicine Work Phone: Comment on above: PATIENT WAS FASTINGP ERFORMED BY: CIERRA [facility] Cjmlko8518 [facility] [id number] Sodium molar conc 141 mmol/L Normal 134-144 Compreh ensive Internal Medicine Work Phone: Comment on above: PATIENT WAS FASTINGP ERFORMED BY: CIERRA [facility]St. [facility] Macnos3988 [facility] [id number] Urea nitrogen mass conc 13 mg/dL Normal 8-27 [facility] Work Phone: Comment on above: PATIENT WAS FASTINGP ERFORMED BY: CIERRA [facility]Be[facility]6370 [facility] [id number] Urea nitrogen/Creatinine mass ratio 13 mg/mg Normal 10-22 [facility] Work Phone: Comment on above: PATIENT WAS FASTINGP ERFORMED BY: CIERRA [facility]6370 [facility] [id number] MICROALBUMINOrdered By: Syst em Wharf Operator on 01-04-2014 Albumin DL <= 20 mg/L mass conc (U) 4.6 ug/mL Normal 0.0-17.0 [facility] Work Phone: Comment on above: PATIENT WAS FASTINGP ERFORMED BY: CIERRA [facility]6370 [facility] [id number] Albumin/Creatinine mass ratio (U) 5.6 {mg/g_creat} Normal 0.0-30.0 [facility] Work Phone: Comment on above: PATIENT WAS FASTINGP ERFORMED BY: [facility]6370 [facility] [id number] Creatinine mass conc (U) 81.5 mg/dL Normal 22.0-328.0 [facility] Work Phone: Comment on above: PATIENT WAS FASTINGP ERFORMED BY: CIERRA LabBeaumont Hospital6370 [facility] [id number] Microscopic ExaminationOrder ed By: Piggery Worker on 01-04-2014 Bacteria LM.HPF #/area (Urine sed) None seen Normal [facility] Work Phone: Comment on above: PATIENT WAS FASTINGP ERFORMED BY: CB [facility] Piduec4206 [address] [facility] [place] [id number] Epithelial cells LM.HPF #/area (Urine sed) None seen Normal 0 - 10 [facility] Work Phone: Comment on above: PATIENT WAS FASTINGP ERFORMED BY: CB [facility] Eitsfx2270 [address] RoadUnc Health Rockinghamin [place] [id number] Mucus LM Ql (Urine sed) Present Normal [facility] Work Phone: Mucus Ql (Urine sed) Present Normal Comp rehensive Internal Medicine Work Phone: Comment on above: PATIENT WAS FASTINGP ERFORMED BY: CB [facility] Uhctjx6586 [address] [facility] [place] [id number] RBC LM.HPF #/area (Urine sed) 0-3 Normal 0 - 3 [facility] Work Phone: Comment on above: PATIENT WAS FASTINGP ERFORMED BY: CB [facility] Unofrq7647 [address] RoadUnc Health Rockinghamin [place] [id number] WBC LM.HPF #/area (Urine sed) 0-5 Normal 0 - 5 [facility] Work Phone: Comment on above: PATIENT WAS FASTINGP ERFORMED BY: CB [facility] Hvlwqb2239 [address] [facility] [id number] PSA (Medicare - G0103) (8415 3)Ordered By: Piggery Worker on 01-04-2014 Prostate specific Ag mass conc 0.5 ng/mL Normal 0.0-4.0 [facility] Work Phone: Comment on above: Electrolytic Ozone ECLIA methodol ogy. .According to the [place] [employer], Serum PSA shoulddecrease and remain [...] Screening; PATIENT N OT FASTINGPERFORMED BY: Lab[facility] Theord0912 [address]y RoadDublin [place] [id number] Information: [id number],2ND ORDER NO DRAW F EE TSH (76775)Ordered By: Delma m Wharf Operator on 01-04-2014 Thyrotropin Qn 1.890 {uIU/mL} Normal 0.450-4.50 0 [facility] Work Phone: Comment on above: PATIENT WAS FASTINGP ERFORMED BY: CIERRA [facility] Nycebs4974 [address] RoadDublin [place] [id number] URINALYSIS, W/ MICRO (93151) Ordered By: Piggery Worker on 01-04-2014 Appearance Nom (U) Clear Normal Compre hensive Internal Medicine Work Phone: Comment on above: PATIENT WAS FASTINGP ERFORMED BY: CIERRA [facility] Vuiwst3556 [address]y RoadDublin [place] [id number] Bilirubin Ql (U) Negative Normal Comprehe nsive Internal Medicine Work Phone: Comment on above: PATIENT WAS FASTINGP ERFORMED BY: CIERRA [facility] Qyawnw6091 [address] RoadDublin [place] [id number] Bilirubin Ql (U) Negative Normal Comprehe nsive Internal Medicine; [facility] Work Phone: Color Nom (U) Yellow Normal Comprehensi ve Internal Medicine Work Phone: Comment on above: PATIENT WAS FASTINGP ERFORMED BY: CIERRA [facility] Lpkuen6375 [address] RoadDublin [place] [id number] Glucose Ql (U) Negative Normal Comprehens shawn Internal Medicine Work Phone: Comment on above: PATIENT WAS FASTINGP ERFORMED BY: CIERRA [facility] Fddqnc7462 [address] RoadDublin [place] [id number] Glucose Ql (U) Negative Normal Comprehens shawn Internal Medicine; [facility] Work Phone: Hemoglobin Ql (U) Negative Normal Compreh ensive Internal Medicine Work Phone: Comment on above: PATIENT WAS FASTINGP ERFORMED BY: CIERRA [facility] Rebitb8914 [address] RoadDublin [place] [id number] Hemoglobin Ql (U) Negative Normal Compreh ensive Internal Medicine; [facility] Work Phone: Hemoglobin Test strip Ql (U) Negative Normal [facility] Work Phone: Ketones Ql (U) Negative Normal Comprehens shawn Internal Medicine Work Phone: Comment on above: PATIENT WAS FASTINGP ERFORMED BY: CIERRA [facility] Cxxvfu3128 [address] RoadDublin [place] [id number] Ketones Ql (U) Negative Normal Comprehens shawn Internal Medicine; [facility] Work Phone: Leukocyte esterase Test strip Ql (U) Negative Normal [facility] Work Phone: Comment on above: PATIENT WAS FASTINGP ERFORMED BY: CIERRA [facility] Jbsjtu8441 [address] RoadDublin [place] [id number] Leukocyte esterase Test strip Ql (U) Negative Normal [facility]; [facility] Work Phone: Microscopic observation LM Nom (Urine sed) See below: Normal [facility] Work Phone: Comment on above: PATIENT WAS FASTINGP ERFORMED BY: CIERRA [facility] Myyqfj3956 [address] RoadDublin [place] [id number] Microscopic observation LM Nom (Urine sed) MICRON Normal [facility] Work Phone: Comment on above: Microscopic follows if indicated. PATIENT WAS FASTINGP ERFORMED BY: CIERRA [facility] Hlluyp6711 Khoury RoadDublin [place] [id number] Nitrite Ql (U) Negative Normal Comprehens shawn Internal Medicine Work Phone: Comment on above: PATIENT WAS FASTINGP ERFORMED BY: CIERRA [facility] Lkjyfj8344 Khoury RoadDublin [place] [id number] Nitrite Ql (U) Negative Normal Comprehens [facility]; [facility] Work Phone: Nitrite Test strip Ql (U) Negative Normal [facility] Work Phone: pH (U) 7.0 [pH] Normal 5.0-7.5 [facility] Work Phone: Comment on above: PATIENT WAS FASTINGP ERFORMED BY: CIERRA [facility] Auudlr3211 [facility] [id number] pH Test strip (U) 7.0 [pH] Normal 5.0-7.5 Compreh ensive Internal Medicine Work Phone: Protein Ql (U) Negative Normal Comprehens [facility] Work Phone: Comment on above: PATIENT WAS FASTINGP ERFORMED BY: CIERRA Barajas Nszhqg8613 [facility] [id number] Protein Ql (U) Negative Normal Comprehens [facility]; [facility] Work Phone: Protein Test strip Ql (U) Negative Normal [facility] Work Phone: Specific gravity Relative Density (U) 1.012 1 Normal 1.005-1.03 0 [facility] Work Phone: Comment on above: PATIENT WAS FASTINGP ERFORMED BY: [facility]RA [facility] Uutxjt9211 [facility] [id number] Urobilinogen (U) [Mass/Vol] 0.2 mg/dL Normal 0.0-1.9 [facility]; [facility] Work Phone: Urobilinogen Test strip mass conc (U) 0.2 mg/dL Normal 0.0-1.9 Comprehensiv e Internal Medicine Work Phone: Comment on above: PATIENT WAS FASTINGP ERFORMED BY: CIERRA Barajas Iptpgn9101 [facility] [id number] Blood Glucose , Office ([phone])Ordered By: Richelle Campos on 01-03-2014 Glucose Glucometer molar conc (BldC) 204 1 Normal [facility] Work Phone: HgA1C , Office ([phone])Ordere d By: Richelle Campos on 01-03-2014 Hemoglobin A1c/Hemoglobin.total mass fraction (Bld) 6.4 % Normal 4.6 - 7.1 Comprehensiv e [facility] Medicine Work Phone: Blood Glucose , Office ([phone])Ordered By: Richelle Campos on 06-20-2013 Glucose Glucometer molar conc (BldC) 134 1 Normal [facility] Work Phone: FECAL OCCULT- Tubes sent kash e ([phone])Ordered By: Zeynep Weiss on 06-20-2013 Hemoglobin.gastrointe stinal Ql (St) Negative Normal [facility] Work Phone: Hemoglobin.gastrointe stinal Ql (Stl) Negative Normal [facility]; [facility] Work Phone: HgA1C , Office ([phone])Ordere d By: Richelle Campos on 06-20-2013 Hemoglobin A1c/Hemoglobin.total mass fraction (Bld) 5.8 % Normal 4.6 - 7.1 Comprehensiv e [facility] Medicine Work Phone: Blood Glucose , Office ([phone])Ordered By: Richelle Campos on 03-15-2013 Glucose Glucometer molar conc (BldC) 141 1 Normal [facility] Work Phone: HgA1C , Office ([phone])Ordere d By: Richelle Campos on 03-15-2013 Hemoglobin A1c/Hemoglobin.total mass fraction (Bld) 5.8 % Normal 4.6 - 7.1 Comprehensiv e [facility] Medicine Work Phone: CBC WITH MANUAL DIFF ([id number]) Ordered By: Piggery Worker on 03-07-2013 Basophils #/vol (Bld) 0.0 {x10E3/uL} Normal 0.0-0.2 [facility] Work Phone: Comment on above: PATIENT WAS FASTINGP ERFORMED BY: CIERRA [employer] Epsyfv4105 [facility] [id number] Information: [id number] Basophils (Bld) [#/Vol] 0.0 10*3/uL Normal 0.0-0.2 [facility]; [facility] Work Phone: Basophils Auto #/vol (Bld) 0.0 {x10E3/uL} Normal 0.0-0.2 [facility] Work Phone: Basophils/100 WBC (Bld) 0 % Normal 0-3 [facility] Work Phone: Comment on above: PATIENT WAS FASTINGP ERFORMED BY: [facility]6370 [facility] [id number] Information: [id number] Basophils/100 WBC Auto (Bld) 0 % Normal 0-3 [facility] Work Phone: Eosinophils #/vol (Bld) 0.2 {x10E3/uL} Normal 0.0-0.4 [facility] Work Phone: Comment on above: PATIENT WAS FASTINGP ERFORMED BY: [facility]6370 [facility] [id number] Information: [id number] Eosinophils (Bld) [#/Vol] 0.2 10*3/uL Normal 0.0-0.4 [facility]; [facility] Work Phone: Eosinophils Auto #/vol (Bld) 0.2 {x10E3/uL} Normal 0.0-0.4 [facility] Work Phone: Eosinophils/100 WBC (Bld) 2 % Normal 0-7 [facility] Work Phone: Comment on above: PATIENT WAS FASTINGP ERFORMED BY: [place] [id number] [facility] [id number] Information: [id number] Eosinophils/100 WBC Auto (Bld) 2 % Normal 0-7 [facility] Work Phone: Erythrocyte distribution width Auto Ratio (RBC) 13.8 % Normal 12.3-15.4 [facility] Work Phone: Erythrocyte distribution width Ratio (RBC) 13.8 % Normal 12.3-15.4 [facility] Work Phone: Comment on above: PATIENT WAS FASTINGP ERFORMED BY: [place] [id number] [facility] [id number] Information: [id number] Hematocrit Auto Volume Fraction (Bld) 39.6 % Normal 37.5-51.0 Comprehens [facility] Internal Medicine Work Phone: Hematocrit Volume Fraction (Bld) 39.6 % Normal 37.5-51.0 [facility] Work Phone: Comment on above: PATIENT WAS FASTINGP ERFORMED BY: [address] [id number] Information: [id number] Hemoglobin mass conc (Bld) 13.3 g/dL Normal 12.6-17.7 [facility] Work Phone: Comment on above: PATIENT WAS FASTINGP ERFORMED BY: [address] [id number] Information: [id number] Immature granulocytes #/vol (Bld) 0.0 {x10E3/uL} Normal 0.0-0.1 [facility] Work Phone: Comment on above: PATIENT WAS FASTINGP ERFORMED BY: [address] [id number] Information: [id number] Immature granulocytes (Bld) [#/Vol] 0.0 10*3/uL Normal 0.0-0.1 [facility]; [facility] Work Phone: Immature granulocytes/100 WBC (Bld) 0 % Normal 0-2 [facility] Work Phone: Comment on above: PATIENT WAS FASTINGP ERFORMED BY: [address] [id number] Information: [id number] Lymphocytes #/vol (Bld) 1.6 {x10E3/uL} Normal 0.7-4.5 [facility] Work Phone: Comment on above: PATIENT WAS FASTINGP ERFORMED BY: [address] [id number] Information: [id number] Lymphocytes (Bld) [#/Vol] 1.6 10*3/uL Normal 0.7-4.5 [facility]; [facility] Work Phone: Lymphocytes Auto #/vol (Bld) 1.6 {x10E3/uL} Normal 0.7-4.5 [facility] Work Phone: Lymphocytes/100 WBC (Bld) 19 % Normal 14- [facility] Work Phone: Comment on above: PATIENT WAS FASTINGP ERFORMED BY: CIERRA [facility]cheri Veuibu4408 [facility] [id number] Information: [id number] Lymphocytes/100 WBC Auto (Bld) 19 % Normal 14- [facility] Work Phone: MCH Auto Entitic mass (RBC) 29.9 pg Normal 26.6-33.0 [facility] Work Phone: MCH Entitic mass (RBC) 29.9 pg Normal 26.6-33.0 [facility] Work Phone: Comment on above: PATIENT WAS FASTINGP ERFORMED BY: CIERRA [address] [id number] Information: [id number] MCHC Auto mass conc (RBC) 33.6 g/dL Normal 31.5-35.7 [facility] Work Phone: MCHC mass conc (RBC) 33.6 g/dL Normal 31.5-35.7 [facility] Internal Medicine Work Phone: Comment on above: PATIENT WAS FASTINGP ERFORMED BY: CIERRA [address] [id number] Information: [id number] MCV Auto Entitic volume (RBC) 89 fL Normal 79-97 [facility] Work Phone: MCV Entitic volume (RBC) 89 fL Normal 79-97 [facility] Work Phone: Comment on above: PATIENT WAS FASTINGP ERFORMED BY: CIERRA [place] [id number] [facility] [id number] Information: [id number] Monocytes #/vol (Bld) 0.3 {x10E3/uL} Normal 0.1-1.0 [facility] Work Phone: Comment on above: PATIENT WAS FASTINGP ERFORMED BY: [place] 6695570 [facility] [id number] Information: [id number] Monocytes (Bld) [#/Vol] 0.3 10*3/uL Normal 0.1-1.0 [facility]; [facility] Work Phone: Monocytes Auto #/vol (Bld) 0.3 {x10E3/uL} Normal 0.1-1.0 [facility] Work Phone: Monocytes/100 WBC (Bld) 4 % Normal 01-06 [facility] Work Phone: Comment on above: PATIENT WAS FASTINGP ERFORMED BY: [place] 6695570 [facility] [id number] Information: [id number] Monocytes/100 WBC Auto (Bld) 4 % Normal - [facility] Work Phone: Neutrophils #/vol (Bld) 6.2 {x10E3/uL} Normal 1.8-7.8 [facility] Work Phone: Comment on above: PATIENT WAS FASTINGP ERFORMED BY: [facility]6370 [facility] [id number] Information: [id number] Neutrophils (Bld) [#/Vol] 6.2 10*3/uL Normal 1.8-7.8 [facility]; [facility] Work Phone: Neutrophils Auto #/vol (Bld) 6.2 {x10E3/uL} Normal 1.8-7.8 [facility] Work Phone: Neutrophils/100 WBC (Bld) 75 % Abnormal 40-74 [facility] Work Phone: Comment on above: PATIENT WAS FASTINGP ERFORMED BY: [place] 6695570 [facility] [id number] Information: [id number] Neutrophils/100 WBC Auto (Bld) 75 % Abnormal 40-74 [facility] Work Phone: Platelets #/vol (Bld) 197 {x10E3/uL} Normal 140-415 [facility] Work Phone: Comment on above: PATIENT WAS FASTINGP ERFORMED BY: CIERRA Ellis6370 [facility] [id number] Information: [id number] Platelets (Bld) [#/Vol] 197 10*3/uL Normal 140-415 [facility]; [facility] Work Phone: Platelets Auto #/vol (Bld) 197 {x10E3/uL} Normal 140-415 [facility] Work Phone: RBC #/vol (Bld) 4.45 {x10E6/uL} Normal 4.14-5.80 Comp [facility] Internal Medicine Work Phone: Comment on above: PATIENT WAS FASTINGP ERFORMED BY: CIERRA [facility]6370 [facility] [id number] Information: [id number] RBC (Bld) [#/Vol] 4.45 10*6/uL Normal 4.14-5.80 Compr [facility] Internal Medicine; [facility] Work Phone: RBC Auto #/vol (Bld) 4.45 {x10E6/uL} Normal 4.14-5.80 [facility] Work Phone: WBC #/vol (Bld) 8.4 {x10E3/uL} Normal 4.0-10.5 [facility] Internal Medicine Work Phone: Comment on above: PATIENT WAS FASTINGP ERFORMED BY: CIERRA [facility]6370 [facility] [id number] Information: [id number] WBC (Bld) [#/Vol] 8.4 10*3/uL Normal 4.0-10.5 Compre [facility] Internal Medicine; [facility] Work Phone: WBC Auto #/vol (Bld) 8.4 {x10E3/uL} Normal 4.0-10.5 [facility] Work Phone: LIPID PANEL ([id number])Ordered B y: Piggery Worker on 03-07-2013 Cholesterol in HDL mass conc 39 mg/dL Abnormal [facility] Work Phone: Comment on above: According to ATP-III Guidelines, HDL-C >59 mg/dL is considered anegative risk factor for CHD. PATIENT WAS FASTINGP ERFORMED BY: CIERRA [facility] Ytdoex7964 Khoury RoadDublin [place] [id number] Cholesterol in LDL mass conc 60 mg/dL Normal 0-99 [facility] Work Phone: Comment on above: PATIENT WAS FASTINGP ERFORMED BY: CIERRA [facility] Blufmg0858 Khoury RoadDublin [place] [id number] Cholesterol in LDL/Cholesterol in HDL mass ratio 1.5 {ratio_units} Normal 0.0-3.6 [facility] Work Phone: Comment on above: PATIENT WAS FASTINGP ERFORMED BY: CIERRA [facility] Tsaxbs8980 [address] [place]oustoDublin [place] [id number] Cholesterol in VLDL mass conc 14 mg/dL Normal 5-40 [facility] Work Phone: Comment on above: PATIENT WAS FASTINGP ERFORMED BY: CIERRA [facility] Gdndow7141 [address] GoustoDuin [place] [id number] Cholesterol mass conc 113 mg/dL Normal 100-199 [facility] prehensive Internal Medicine Work Phone: Comment on above: PATIENT WAS FASTINGP ERFORMED BY: CB [facility] Suywcu8055 [address] GoustoDublin [place] [id number] Triglyceride mass conc 69 mg/dL Normal 0-149 [facility] Work Phone: Comment on above: PATIENT WAS FASTINGP ERFORMED BY: CB [facility] Pzckng1583 [address] [place]oustoDublin [place] [id number] METABOLIC PANEL, COMPREHENSI VE ([id number])Ordered By: Piggery Worker on 03-07-2013 Albumin mass conc 4.2 g/dL Normal 3.5-4.8 Compreh ensive Internal Medicine Work Phone: Comment on above: PATIENT WAS FASTINGP ERFORMED BY: CIERRA [facility] Sbdqvp0546 Khoury RoadDublin [place] [id number] Albumin/Globulin mass ratio 1.8 {ratio} Normal 1.1-2.5 [facility] Work Phone: Comment on above: PATIENT WAS FASTINGP ERFORMED BY: CB [facility] Obxdad6048 Khoury RoadDublin [place] [id number] ALP [Catalytic activity/Vol] 121 U/L Normal 25-160 [facility]; [facility] Work Phone: ALP enzyme act/vol 121 [iU]/L Normal 25-160 [facility] Internal Medicine Work Phone: Comment on above: PATIENT WAS FASTINGP ERFORMED BY: CIERRA [facility] Ozgrix9536 [address] RoadDublin [place] [id number] ALT [Catalytic activity/Vol] 25 U/L Normal 0-44 [facility]; [facility] Work Phone: ALT enzyme act/vol 25 [iU]/L Normal 0-44 [facility] Internal Medicine Work Phone: Comment on above: PATIENT WAS FASTINGP ERFORMED BY: [facility] Hkmpqh9296 Khoury RoadDublin [place] [id number] AST [Catalytic activity/Vol] 26 U/L Normal 0-40 [facility]; [facility] Work Phone: AST enzyme act/vol 26 [iU]/L Normal 0-40 [facility] Internal Medicine Work Phone: Comment on above: PATIENT WAS FASTINGP ERFORMED BY: CB [facility] Nmdxgo0225 Khoury RoadDublin [place] [id number] Bilirubin mass conc 0.9 mg/dL Normal 0.0-1.2 [facility] Internal Medicine Work Phone: Comment on above: PATIENT WAS FASTINGP ERFORMED BY: CB [facility] Quttjg8804 Khoury RoadDublin [place] [id number] Calcium mass conc 9.2 mg/dL Normal 8.6-10.2 Compreh ensive Internal Medicine Work Phone: Comment on above: PATIENT WAS FASTINGP ERFORMED BY: CIERRA [facility] Nwvisg9672 Khour[address] Roadblin [place] [id number] Chloride molar conc 106 mmol/L Normal 97-108 Compr ehensive Internal Medicine Work Phone: Comment on above: PATIENT WAS FASTINGP ERFORMED BY: CB [facility] Somiyo6748 Khoury RoadUnc Health Rockinghamin [place] [id number] CO2 molar conc 22 mmol/L Normal 20-32 [...] PATIENT WAS FASTINGP ERFORMED BY: CB [facility] Pobtej5716 [address] [facility] [id number] Creatinine mass conc 0.90 mg/dL Normal 0.76-1.27 Comp [facility] centerensive Internal [facility] Work Phone: Comment on above: PATIENT WAS FASTINGP ERFORMED BY: CB [facility] Xkgqob1257 [address] [facility] [id number] GFR/1.73 sq M predicted among blacks CKD-EPI vol rate/area (S/P/Bld) 96 mL/min/1.73 Normal Comprehensiv e Internal Medicine Work Phone: Comment on above: PATIENT WAS FASTINGP ERFORMED BY: CB [facility] Ifurkj7205 [address] [facility] [id number] GFR/1.73 sq M predicted among non-blacks CKD-EPI vol rate/area (S/P/Bld) 83 mL/min/1.73 Normal [facility] Work Phone: Comment on above: PATIENT WAS FASTINGP ERFORMED BY: CB [facility] Lvwtsl0913 K[address]y [facility] [place] [id number] Globulin Calculated mass conc (S) 2.3 g/dL Normal 1.5-4.5 [facility] Work Phone: Globulin mass conc (S) 2.3 g/dL Normal 1.5-4.5 [facility] Work Phone: Comment on above: PATIENT WAS FASTINGP ERFORMED BY: CIERRA [facility] Ydvyfd8938 Khoury RoadDublin [place] [id number] Glucose mass conc 136 mg/dL Abnormal 65-99 Compreh ensive Internal Medicine Work Phone: Comment on above: PATIENT WAS FASTINGP ERFORMED BY: CIERRA [facility] Cnerih4262 Khoury RoadDublin [place] [id number] Potassium molar conc 4.4 mmol/L Normal 3.5-5.2 Comp rehensive Internal Medicine Work Phone: Comment on above: PATIENT WAS FASTINGP ERFORMED BY: CIERRA [facility] Qvbeon6962 Khoury RoadDublin [place] [id number] Protein mass conc 6.5 g/dL Normal 6.0-8.5 Compreh ensive Internal Medicine Work Phone: Comment on above: PATIENT WAS FASTINGP ERFORMED BY: CIERRA [facility] Gqxqcc8475 Khoury RoadDublin [place] [id number] Sodium molar conc 143 mmol/L Normal 134-144 Compreh ensive Internal Medicine Work Phone: Comment on above: PATIENT WAS FASTINGP ERFORMED BY: CIERRA [facility] Gkxlyr2390 Khoury RoadDublin [place] [id number] Urea nitrogen mass conc 15 mg/dL Normal 8-27 [facility] Work Phone: Comment on above: PATIENT WAS FASTINGP ERFORMED BY: CIERRA [facility] Lhmuyb5194 Khoury RoadDublin [place] [id number] Urea nitrogen/Creatinine mass ratio 17 mg/mg Normal 10-22 [facility] Work Phone: Comment on above: PATIENT WAS FASTINGP ERFORMED BY: CIERRA [facility] Ynbumj9582 K[address]y RoadDublin [place] [id number] MICROALBUMINOrdered By: Syst em Wharf Operator on 03-07-2013 Albumin DL <= 20 mg/L mass conc (U) 12.1 ug/mL Normal 0.0-17.0 [facility] Work Phone: Comment on above: PATIENT WAS FASTINGP ERFORMED BY: [facility] Owvbie2777 K[address]y [facility] [place] [id number] Albumin/Creatinine mass ratio (U) 6.7 {mg/g_creat} Normal 0.0-30.0 [facility] Work Phone: Comment on above: PATIENT WAS FASTINGP ERFORMED BY: [facility] Orvuqz3489 [address] [facility] [id number] Creatinine mass conc (U) 180.6 mg/dL Normal 22.0-328.0 [facility] Work Phone: Comment on above: PATIENT WAS FASTINGP ERFORMED BY: [facility] Npytlk2537 [address] [facility] [id number] Microscopic ExaminationOrder ed By: Piggery Worker on 03-07-2013 Bacteria LM.HPF #/area (Urine sed) None seen Normal [facility] Work Phone: Comment on above: PATIENT WAS FASTINGP ERFORMED BY: [facility] Uxoyxl6700 [address] [facility]in [place] [id number] Epithelial cells LM.HPF #/area (Urine sed) 0-10 Normal 0 - 10 [facility] Work Phone: Comment on above: PATIENT WAS FASTINGP ERFORMED BY: [facility] Fllijz7952 [address] [facility]in [place] [id number] Mucus LM Ql (Urine sed) Present Normal [facility] Work Phone: Mucus Ql (Urine sed) Present Normal Comp rehensive Internal Medicine Work Phone: Comment on above: PATIENT WAS FASTINGP ERFORMED BY: [facility] Gkqyne4429 [address] [facility]blin [place] [id number] RBC LM.HPF #/area (Urine sed) 0-3 Normal 0 - 3 [facility] Work Phone: Comment on above: PATIENT WAS FASTINGP ERFORMED BY: [facility] Ttejxn8148 [address] [facility] [place] [id number] WBC LM.HPF #/area (Urine sed) 0-5 Normal 0 - 5 [facility] Work Phone: Comment on above: PATIENT WAS FASTINGP ERFORMED BY: CIERRA [facility] Grarqx4292 [address] RoadDublin [place] [id number] TSH ([id number])Ordered By: ScratchJre m Wharf Operator on 03-07-2013 Thyrotropin Qn 1.590 {uIU/mL} Normal 0.450-4.50 0 [facility] Work Phone: Comment on above: PATIENT WAS FASTINGP ERFORMED BY: CIERRA [facility] Uuvnmn8882 [address] Roadblin [place] [id number] URINALYSIS, W/ MICRO ([id number]) Ordered By: Piggery Worker on 03-07-2013 Appearance Nom (U) Clear Normal Compre hensive Internal Medicine Work Phone: Comment on above: PATIENT WAS FASTINGP ERFORMED BY: CIERRA LabCocheri ShieldsIpjbfj5890 Khoury RoadUnc Health Rockinghamin [place] [id number] Bilirubin Ql (U) Negative Normal Comprehe nsive Internal Medicine Work Phone: Comment on above: PATIENT WAS FASTINGP ERFORMED BY: CIERRA [facility] Bvkxcf9343 [address] RoadDublin [place] [id number] Bilirubin Ql (U) Negative Normal Comprehe nsive Internal Medicine; [facility] Work Phone: Color Nom (U) Yellow Normal Comprehensi ve Internal Medicine Work Phone: Comment on above: PATIENT WAS FASTINGP ERFORMED BY: CIERRA [facility] Meichr6091 [address] RoadDublin [place] [id number] Glucose Ql (U) Negative Normal Comprehens shawn Internal Medicine Work Phone: Comment on above: PATIENT WAS FASTINGP ERFORMED BY: CIERRA [facility] Tbllbs4727 [address] RoadDublin [place] [id number] Glucose Ql (U) Negative Normal Comprehens shawn Internal Medicine; [facility] Work Phone: Hemoglobin Ql (U) Negative Normal Compreh ensive Internal Medicine Work Phone: Comment on above: PATIENT WAS FASTINGP ERFORMED BY: CIERRA LabTierra ShieldsMadruq6058 [address] RoadDublin [place] [id number] Hemoglobin Ql (U) Negative Normal Compreh ensive Internal Medicine; [facility] Work Phone: Hemoglobin Test strip Ql (U) Negative Normal [facility] Work Phone: Ketones Ql (U) Negative Normal Comprehens shawn Internal Medicine Work Phone: Comment on above: PATIENT WAS FASTINGP ERFORMED BY: CIERRA LabTierra ShieldsNkxtlp1749 K[address] RoadDublin [place] [id number] Ketones Ql (U) Negative Normal Comprehens shawn Internal Medicine; [facility] Work Phone: Leukocyte esterase Test strip Ql (U) Negative Normal [facility] Work Phone: Comment on above: PATIENT WAS FASTINGP ERFORMED BY: CIERRA Shieldslin6370 [address] RoadDublin [place] [id number] Leukocyte esterase Test strip Ql (U) Negative Normal [facility]; [facility] Work Phone: Microscopic observation LM Nom (Urine sed) See below: Normal [facility] Work Phone: Comment on above: PATIENT WAS FASTINGP ERFORMED BY: CIERRA Shieldslin6370 [address] RoadDublin [place] [id number] Microscopic observation LM Nom (Urine sed) MICRON Normal [facility] Work Phone: Comment on above: Microscopic follows if indicated. PATIENT WAS FASTINGP ERFORMED BY: CIERRA Shieldslin6370 [address] Roadblin [place] [id number] Nitrite Ql (U) Negative Normal Comprehens shawn Internal Medicine Work Phone: Comment on above: PATIENT WAS FASTINGP ERFORMED BY: CIERRA [facility] Ahwtpo6394 [address] RoadDublin [place] [id number] Nitrite Ql (U) Negative Normal Comprehens shawn Internal Medicine; [facility] Work Phone: Nitrite Test strip Ql (U) Negative Normal [facility] Work Phone: pH (U) 6.0 [pH] Normal 5.0-7.5 [facility] Work Phone: Comment on above: PATIENT WAS FASTINGP ERFORMED BY: Begun Puywxq2041 KhouryNutrigreenFirstHealth [facility] [id number] pH Test strip (U) 6.0 [pH] Normal 5.0-7.5 Compreh ensive Internal Medicine Work Phone: Protein Ql (U) Negative Normal Comprehens shawn Internal Medicine Work Phone: Comment on above: PATIENT WAS FASTINGP ERFORMED BY: CIERRA Begun Oziajd9852 [address] DiagnovusFirstHealth [facility] [id number] Protein Ql (U) Negative Normal Comprehens shawn Internal Medicine; [facility] Work Phone: Protein Test strip Ql (U) Negative Normal [facility] Work Phone: Specific gravity Relative Density (U) 1.024 1 Normal 1.005-1.03 0 [facility] Work Phone: Comment on above: PATIENT WAS FASTINGP ERFORMED BY: CIERRA Begun Mgapeq0609 K[address] DiagnovusFirstHealth [facility] [id number] Urobilinogen (U) [Mass/Vol] 0.2 mg/dL Normal 0.0-1.9 [facility]; [facility] Work Phone: Urobilinogen Test strip mass conc (U) 0.2 mg/dL Normal 0.0-1.9 Comprehensiv e Internal Medicine Work Phone: Comment on above: PATIENT WAS FASTINGP ERFORMED BY: Begun Rdrvkk3137 K[place]y DiagnovusFirstHealth [facility] [id number] Blood Glucose , Office ([phone])Ordered By: Richelle Campos on 10-11-2012 Glucose Glucometer molar conc (BldC) 149 1 Normal [facility] Work Phone: HgA1C , Office ([id number])Ordere d By: Richelle Campos on 10-11-2012 Hemoglobin A1c/Hemoglobin.total mass fraction (Bld) 6.3 % Normal 4.6 - 7.1 Comprehensiv e Internal Medicine Work Phone: CBC WITH MANUAL DIFF ([id number]) Ordered By: Piggery Worker on 07-04-2012 Basophils #/vol (Bld) 0.0 {x10E3/uL} Normal 0.0-0.2 [facility] Work Phone: Comment on above: PATIENT NOT FASTINGP ERFORMED BY: CIERRA [facility]6[address] [facility] [id number] Information: [id number] Basophils (Bld) [#/Vol] 0.0 10*3/uL Normal 0.0-0.2 [facility]; [facility] Work Phone: Basophils Auto #/vol (Bld) 0.0 {x10E3/uL} Normal 0.0-0.2 [facility] Work Phone: Basophils/100 WBC (Bld) 1 % Normal 0-3 [facility] Work Phone: Comment on above: PATIENT NOT FASTINGP ERFORMED BY: [facility]6[address] [facility] [id number] Information: [id number] Basophils/100 WBC Auto (Bld) 1 % Normal 0-3 [facility] Work Phone: Eosinophils #/vol (Bld) 0.2 {x10E3/uL} Normal 0.0-0.4 [facility] Work Phone: Comment on above: PATIENT NOT FASTINGP ERFORMED BY: [facility]6[address] [facility] [id number] Information: [id number] Eosinophils (Bld) [#/Vol] 0.2 10*3/uL Normal 0.0-0.4 [facility]; [facility] Work Phone: Eosinophils Auto #/vol (Bld) 0.2 {x10E3/uL} Normal 0.0-0.4 [facility] Work Phone: Eosinophils/100 WBC (Bld) 3 % Normal 0-7 [facility] Work Phone: Comment on above: PATIENT NOT FASTINGP ERFORMED BY: LabCoInspira Medical Center VinelandPhcxxs2376 [facility] [id number] Information: [id number] Eosinophils/100 WBC Auto (Bld) 3 % Normal 0-7 [facility] Work Phone: Erythrocyte distribution width Auto Ratio (RBC) 13.9 % Normal 12.3-15.4 [facility] Work Phone: Erythrocyte distribution width Ratio (RBC) 13.9 % Normal 12.3-15.4 [facility] Work Phone: Comment on above: PATIENT NOT FASTINGP ERFORMED BY: [place] 6695570 [facility] [id number] Information: [id number] Hematocrit Auto Volume Fraction (Bld) 39.4 % Normal 37.5-51.0 [facility] Internal Medicine Work Phone: Hematocrit Volume Fraction (Bld) 39.4 % Normal 37.5-51.0 [facility] Work Phone: Comment on above: PATIENT NOT FASTINGP ERFORMED BY: [place] [id number] [facility] [id number] Information: [id number] Hemoglobin mass conc (Bld) 13.3 g/dL Normal 12.6-17.7 [facility] Work Phone: Comment on above: PATIENT NOT FASTINGP ERFORMED BY: [place] 6695570 [facility] [id number] Information: [id number] Immature granulocytes #/vol (Bld) 0.0 {x10E3/uL} Normal 0.0-0.1 [facility] Work Phone: Comment on above: PATIENT NOT FASTINGP ERFORMED BY: [place] 6695570 [facility] [id number] Information: [id number] Immature granulocytes (Bld) [#/Vol] 0.0 10*3/uL Normal 0.0-0.1 [facility]; [facility] Work Phone: Immature granulocytes/100 WBC (Bld) 0 % Normal 0-2 [facility] Work Phone: Comment on above: PATIENT NOT FASTINGP ERFORMED BY: CIERRA BegunInspira Medical Center VinelandJyxjqo2276 [facility] [id number] Information: [id number] Lymphocytes #/vol (Bld) 1.5 {x10E3/uL} Normal 0.7-4.5 [facility] Work Phone: Comment on above: PATIENT NOT FASTINGP ERFORMED BY: MediamindAnthony Ville [id number] [facility] [id number] Information: [id number] Lymphocytes (Bld) [#/Vol] 1.5 10*3/uL Normal 0.7-4.5 [facility]; [facility] Work Phone: Lymphocytes Auto #/vol (Bld) 1.5 {x10E3/uL} Normal 0.7-4.5 [facility] Work Phone: Lymphocytes/100 WBC (Bld) 19 % Normal 14-46 [facility] Work Phone: Comment on above: PATIENT NOT FASTINGP ERFORMED BY: BegunThomas Ville [id number] [facility] [id number] Information: [id number] Lymphocytes/100 WBC Auto (Bld) 19 % Normal 14-46 [facility] Work Phone: MCH Auto Entitic mass (RBC) 29.8 pg Normal 26.6-33.0 [facility] Work Phone: MCH Entitic mass (RBC) 29.8 pg Normal 26.6-33.0 [facility] Work Phone: Comment on above: PATIENT NOT FASTINGP ERFORMED BY: MediamindAnthony [place]ille [id number] [facility] [id number] Information: [id number] MCHC Auto mass conc (RBC) 33.8 g/dL Normal 31.5-35.7 [facility] Work Phone: MCHC mass conc (RBC) 33.8 g/dL Normal 31.5-35.7 [facility] Internal Medicine Work Phone: Comment on above: PATIENT NOT FASTINGP ERFORMED BY: CIERRA [facility] CenterTierra ShieldsDiofxa0875 [facility] [id number] Information: [id number] MCV Auto Entitic volume (RBC) 88 fL Normal 79-97 [facility] Work Phone: MCV Entitic volume (RBC) 88 fL Normal 79-97 [facility] Work Phone: Comment on above: PATIENT NOT FASTINGP ERFORMED BY: CIERRA [facility] CenterTierra ShieldsPvwvty2154 [facility] [id number] Information: [id number] Monocytes #/vol (Bld) 0.5 {x10E3/uL} Normal 0.1-1.0 [facility] Work Phone: Comment on above: PATIENT NOT FASTINGP ERFORMED BY: CIERRA [facility]6370 [facility] [id number] Information: [id number] Monocytes (Bld) [#/Vol] 0.5 10*3/uL Normal 0.1-1.0 [facility]; [facility] Work Phone: Monocytes Auto #/vol (Bld) 0.5 {x10E3/uL} Normal 0.1-1.0 [facility] Work Phone: Monocytes/100 WBC (Bld) 6 % Normal 4-13 [facility] Work Phone: Comment on above: PATIENT NOT FASTINGP ERFORMED BY: CIERRA [place] [id number] [facility] [id number] Information: [id number] Monocytes/100 WBC Auto (Bld) 6 % Normal 4-13 [facility] Work Phone: Neutrophils #/vol (Bld) 5.6 {x10E3/uL} Normal 1.8-7.8 [facility] Work Phone: Comment on above: PATIENT NOT FASTINGP ERFORMED BY: CIERRA Alicia Painting70 [facility] [id number] Information: [id number] Neutrophils (Bld) [#/Vol] 5.6 10*3/uL Normal 1.8-7.8 [facility]; [facility] Work Phone: Neutrophils Auto #/vol (Bld) 5.6 {x10E3/uL} Normal 1.8-7.8 [facility] Work Phone: Neutrophils/100 WBC (Bld) 71 % Normal 40-74 [facility] Work Phone: Comment on above: PATIENT NOT FASTINGP ERFORMED BY: CIERRA Jenncheri ShieldsIfjyhr4407 [facility] [id number] Information: [id number] Neutrophils/100 WBC Auto (Bld) 71 % Normal 40-74 [facility] Work Phone: Platelets #/vol (Bld) 219 {x10E3/uL} Normal 140-415 [facility] Work Phone: Comment on above: PATIENT NOT FASTINGP ERFORMED BY: CIERRA Jenncheri Boiuox8888 [facility] [id number] Information: [id number] Platelets (Bld) [#/Vol] 219 10*3/uL Normal 140-415 [facility]; [facility] Work Phone: Platelets Auto #/vol (Bld) 219 {x10E3/uL} Normal 140-415 [facility] Work Phone: RBC #/vol (Bld) 4.47 {x10E6/uL} Normal 4.14-5.80 [facility] Internal Medicine Work Phone: Comment on above: PATIENT NOT FASTINGP ERFORMED BY: CIERRA [place] [id number] [facility] [id number] Information: [id number] RBC (Bld) [#/Vol] 4.47 10*6/uL Normal 4.14-5.80 [facility]; [facility] Work Phone: RBC Auto #/vol (Bld) 4.47 {x10E6/uL} Normal 4.14-5.80 [facility] Work Phone: WBC #/vol (Bld) 7.8 {x10E3/uL} Normal 4.0-10.5 Compr ensive Internal Medicine Work Phone: Comment on above: PATIENT NOT FASTINGP ERFORMED BY: CIERRA Carbonated ContentFirstHealth Montgomery Memorial Hospital [id number] Information: [id number] WBC (Bld) [#/Vol] 7.8 10*3/uL Normal 4.0-10.5 [facility]; [facility] Work Phone: WBC Auto #/vol (Bld) 7.8 {x10E3/uL} Normal 4.0-10.5 [facility] Work Phone: Hemoglobin Glyclated (HGB A1 C) (47212)Ordered By: Piggery Worker on 07-04-2012 Hemoglobin A1c/Hemoglobin.total mass fraction (Bld) 6.3 % Abnormal 4.8-5.6 Comprehens e Internal Medicine Work Phone: Comment on above: . Increased risk for diabetes: 5.7 - 6.4 Diabetes: >6.4 Glycemic control for adults with diabetes: <7.0 PATIENT NOT FASTINGP ERFORMED BY: CIERRA [employer]6370 Cash Check CardFirstHealth [facility] Memorial Hospital [id number] LIPID PANEL ([id number])Ordered B y: Piggery Worker on 07-04-2012 Cholesterol in HDL mass conc 35 mg/dL Abnormal [facility] Work Phone: Comment on above: According to ATP-III Guidelines, HDL-C >59 mg/dL is considered anegative risk factor for CHD. PATIENT NOT FASTINGP ERFORMED BY: CIERRA Carbonated ContentFirstHealth Montgomery Memorial Hospital [id number] Cholesterol in LDL mass conc 64 mg/dL Normal 0-99 [facility] Work Phone: Comment on above: PATIENT NOT FASTINGP ERFORMED BY: CIERRA Ellis6370 [address] [facility] [id number] Cholesterol in LDL/Cholesterol in HDL mass ratio 1.8 {ratio_units} Normal 0.0-3.6 [facility] Work Phone: Comment on above: PATIENT NOT FASTINGP ERFORMED BY: CIERRA Ellis6370 [address] [facility] [id number] Cholesterol in VLDL mass conc 18 mg/dL Normal 5-40 [facility] Work Phone: Comment on above: PATIENT NOT FASTINGP ERFORMED BY: CIERRA Ellis6370 [facility] [id number] Cholesterol mass conc 117 mg/dL Normal 100-199 [facility] prehensive Internal Medicine Work Phone: Comment on above: PATIENT NOT FASTINGP ERFORMED BY: CIERRA Ellis6370 [facility] [id number] Triglyceride mass conc 88 mg/dL Normal 0-149 [facility] Work Phone: Comment on above: PATIENT NOT FASTINGP ERFORMED BY: CIERRA Ellis6370 [facility] [id number] METABOLIC PANEL, COMPREHENSI VE ([id number])Ordered By: Piggery Worker on 07-04-2012 Albumin mass conc 4.2 g/dL Normal 3.5-4.8 Compreh ensive Internal Medicine Work Phone: Comment on above: PATIENT NOT FASTINGP ERFORMED BY: CIERRA Shieldslin6370 [facility] [id number] Albumin/Globulin mass ratio 2.0 {ratio} Normal 1.1-2.5 [facility] Work Phone: Comment on above: PATIENT NOT FASTINGP ERFORMED BY: CIERRA Shieldslin6370 [facility] [id number] ALP [Catalytic activity/Vol] 117 U/L Normal 25-160 [facility]; [facility] Work Phone: ALP enzyme act/vol 117 [iU]/L Normal 25-160 [facility] Internal Medicine Work Phone: Comment on above: PATIENT NOT FASTINGP ERFORMED BY: CB [facility] Tqfbow0609 Khoury RoadDublin [place] [id number] ALT [Catalytic activity/Vol] 17 U/L Normal 0-55 [facility]; [facility] Work Phone: ALT enzyme act/vol 17 [iU]/L Normal 0-55 [facility] Internal Medicine Work Phone: Comment on above: PATIENT NOT FASTINGP ERFORMED BY: CB [facility] Wtueuo1289 Khoury RoadDublin [place] [id number] AST [Catalytic activity/Vol] 18 U/L Normal 0-40 [facility]; [facility] Work Phone: AST enzyme act/vol 18 [iU]/L Normal 0-40 [facility] Internal Medicine Work Phone: Comment on above: PATIENT NOT FASTINGP ERFORMED BY: CB [facility] Oumxlu2394 Khoury RoadDublin [place] [id number] Bilirubin mass conc 1.0 mg/dL Normal 0.0-1.2 Compr [facility] Internal Medicine Work Phone: Comment on above: PATIENT NOT FASTINGP ERFORMED BY: CB [facility] Mquxjp8618 Khoury RoadDublin [place] [id number] Calcium mass conc 8.9 mg/dL Normal 8.6-10.2 Compreh ensive Internal Medicine Work Phone: Comment on above: PATIENT NOT FASTINGP ERFORMED BY: CB [facility] Fayxzb7691 Khoury RoadDublin [place] [id number] Chloride molar conc 105 mmol/L Normal 97-108 Compr ensive Internal Medicine Work Phone: Comment on above: PATIENT NOT FASTINGP ERFORMED BY: CB [facility] Dmhtqw6676 Khoury RoadDublin [place] [id number] CO2 molar conc 22 mmol/L Normal 20-32 Comprehens shawn Internal Medicine Work Phone: Comment on above: PATIENT NOT FASTINGP ERFORMED BY: CIERRA [facility] Izfexb5020 K[address] [facility] [id number] Creatinine mass conc 0.86 mg/dL Normal 0.76-1.27 Comp rehensive Internal Medicine Work Phone: Comment on above: PATIENT NOT FASTINGP ERFORMED BY: CB [facility] Xifyss3720 [address] [facility] [id number] GFR/1.73 sq M predicted among blacks CKD-EPI vol rate/area (S/P/Bld) 98 mL/min/1.73 Normal Comprehensiv e Internal Medicine Work Phone: Comment on above: PATIENT NOT FASTINGP ERFORMED BY: CIERRA [facility] Iniqdp8397 [facility] [id number] GFR/1.73 sq M predicted among non-blacks CKD-EPI vol rate/area (S/P/Bld) 85 mL/min/1.73 Normal [facility] Work Phone: Comment on above: PATIENT NOT FASTINGP ERFORMED BY: CIERRA [facility] Fifxzn0668 [facility] [id number] Globulin Calculated mass conc (S) 2.1 g/dL Normal 1.5-4.5 [facility] Work Phone: Globulin mass conc (S) 2.1 g/dL Normal 1.5-4.5 [facility] Work Phone: Comment on above: PATIENT NOT FASTINGP ERFORMED BY: CIERRA [facility] Bqhyjz9281 [facility] [id number] Glucose mass conc 127 mg/dL Abnormal 65-99 Compreh ensive Internal Medicine Work Phone: Comment on above: PATIENT NOT FASTINGP ERFORMED BY: CB [facility] Vlbalu1604 [facility] [id number] Potassium molar conc 4.6 mmol/L Normal 3.5-5.2 Comp rehensive Internal Medicine Work Phone: Comment on above: PATIENT NOT FASTINGP ERFORMED BY: CB [facility] Zrdhbe7678 [facility] [id number] Protein mass conc 6.3 g/dL Normal 6.0-8.5 Compreh ensive Internal Medicine Work Phone: Comment on above: PATIENT NOT FASTINGP ERFORMED BY: CIERRA Ellis6370 [facility] [id number] Sodium molar conc 141 mmol/L Normal 134-144 Compreh ensive Internal Medicine Work Phone: Comment on above: PATIENT NOT FASTINGP ERFORMED BY: CIERRA Alicia Shieldslin6370 [facility] [id number] Urea nitrogen mass conc 11 mg/dL Normal 8-27 [facility] Work Phone: Comment on above: PATIENT NOT FASTINGP ERFORMED BY: CIERRA Alicia Shieldslin6370 [facility] [id number] Urea nitrogen/Creatinine mass ratio 13 mg/mg Normal 10-22 [facility] Work Phone: Comment on above: PATIENT NOT FASTINGP ERFORMED BY: CIERRA Alicia Shieldslin6370 [facility] [id number] MICROALBUMINOrdered By: Syst em Wharf Operator on 07-04-2012 Albumin DL <= 20 mg/L mass conc (U) 9.7 ug/mL Normal 0.0-17.0 [facility] Work Phone: Comment on above: PATIENT NOT FASTINGP ERFORMED BY: CIERRA Jenncheri ShieldsCjhakd2932 [facility] [id number] Albumin/Creatinine mass ratio (U) 5.1 {mg/g_creat} Normal 0.0-30.0 [facility] Work Phone: Comment on above: PATIENT NOT FASTINGP ERFORMED BY: CIERRA Alicia Shieldslin6370 [facility] [id number] Creatinine mass conc (U) 189.6 mg/dL Normal 22.0-328.0 [facility] Work Phone: Comment on above: PATIENT NOT FASTINGP ERFORMED BY: CIERRA Jenncheri ShieldsExgado8599 [facility] [id number] Microscopic ExaminationOrder ed By: Piggery Worker on 07-04-2012 Bacteria LM.HPF #/area (Urine sed) Few Normal [facility] Work Phone: Comment on above: PATIENT NOT FASTINGP ERFORMED BY: CB [facility] Sutjdy5017 Khoury RoadDublin [place] [id number] Epithelial cells LM.HPF #/area (Urine sed) 0-10 Normal 0 - 10 [facility] Work Phone: Comment on above: PATIENT NOT FASTINGP ERFORMED BY: CB [facility] Fjutjf6843 Khoury RoadDublin [place] [id number] Mucus LM Ql (Urine sed) Present Normal [facility] Work Phone: Mucus Ql (Urine sed) Present Normal Comp rehensive Internal Medicine Work Phone: Comment on above: PATIENT NOT FASTINGP ERFORMED BY: CB [facility] Eopqgq0446 Khoury RoadUnc Health Rockinghamin [place] [id number] RBC LM.HPF #/area (Urine sed) 0-3 Normal 0 - 3 [facility] Work Phone: Comment on above: PATIENT NOT FASTINGP ERFORMED BY: CB [facility] Lpbcbd9769 K[address]y [facility] Hospitalblin [place] [id number] WBC LM.HPF #/area (Urine sed) 0-5 Normal 0 - 5 [facility] Work Phone: Comment on above: PATIENT NOT FASTINGP ERFORMED BY: CB [facility] Uysljf5788 [address] [facility] [id number] PSA (PROSTATE SPECIFIC ANTIG EN) (V76.44)Ordered By: Piggery Worker on 07-04-2012 Prostate specific Ag mass conc 0.6 ng/mL Normal 0.0-4.0 [facility] Work Phone: Comment on above: Raji ECLIA methodol ogy. .According to the [place] [employer], Serum PSA shoulddecrease and remain [...] kumar; PATIENT NOT FASTINGPERFORMED BY: CB [facility] Cfejes6255 K[address]y RoadDublin [place] [id number] TSH ([id number])Ordered By: Syste m Wharf Operator on 07-04-2012 Thyrotropin Qn 1.960 {uIU/mL} Normal 0.450-4.50 0 [facility] Work Phone: Comment on above: PATIENT NOT FASTINGP ERFORMED BY: CB [facility] Ogmuvg6564 K[address]y RoadDublin [place] [id number] URINALYSIS, W/ MICRO ([id number]) Ordered By: Piggery Worker on 07-04-2012 Appearance Nom (U) Clear Normal Compre hensive Internal Medicine Work Phone: Comment on above: PATIENT NOT FASTINGP ERFORMED BY: CB [facility] Fhfocw4635 K[address]y RoadDublin [place] [id number] Bilirubin Ql (U) Negative Normal Comprehe nsive Internal Medicine Work Phone: Comment on above: PATIENT NOT FASTINGP ERFORMED BY: CB [facility] Vofcsr4827 K[address]y RoadDublin [place] [id number] Bilirubin Ql (U) Negative Normal Comprehe nsive Internal Medicine; [facility] Work Phone: Color Nom (U) Yellow Normal Comprehensi ve Internal Medicine Work Phone: Comment on above: PATIENT NOT FASTINGP ERFORMED BY: CB [facility] Ropqpb5185 K[address]y RoadDublin [place] [id number] Glucose Ql (U) Negative Normal Comprehens shawn Internal Medicine Work Phone: Comment on above: PATIENT NOT FASTINGP ERFORMED BY: CB [facility] Viblum2500 [address]y RoadDublin [place] [id number] Glucose Ql (U) Negative Normal Comprehens shawn Internal Medicine; [facility] Work Phone: Hemoglobin Ql (U) Negative Normal Compreh ensive Internal Medicine Work Phone: Comment on above: PATIENT NOT FASTINGP ERFORMED BY: CIERRA [facility] Ygfvmh9189 K[address]y RoadDublin [place] [id number] Hemoglobin Ql (U) Negative Normal Compreh ensive Internal Medicine; [facility] Work Phone: Hemoglobin Test strip Ql (U) Negative Normal [facility] Work Phone: Ketones Ql (U) Negative Normal Comprehens shawn Internal Medicine Work Phone: Comment on above: PATIENT NOT FASTINGP ERFORMED BY: CIERRA [facility] Zhbqhg8008 K[address]y RoadDublin [place] [id number] Ketones Ql (U) Negative Normal Comprehens shawn Internal Medicine; [facility] Work Phone: Leukocyte esterase Test strip Ql (U) Negative Normal [facility] Work Phone: Comment on above: PATIENT NOT FASTINGP ERFORMED BY: CIERRA [facility] Eegldc3849 K[address]y RoadDuin [place] [id number] Leukocyte esterase Test strip Ql (U) Negative Normal [facility]; [facility] Work Phone: Microscopic observation LM Nom (Urine sed) See below: Normal [facility] Work Phone: Comment on above: PATIENT NOT FASTINGP ERFORMED BY: CIERRA [facility] Jlgqng2970 K[address]y RoadDuin [place] [id number] Microscopic observation LM Nom (Urine sed) MICRON Normal [facility] Work Phone: Comment on above: Microscopic follows if indicated. PATIENT NOT FASTINGP ERFORMED BY: CIERRA [facility] Kblqep9592 K[address]y RoadDuin [place] [id number] Nitrite Ql (U) Negative Normal Comprehens shawn Internal Medicine Work Phone: Comment on above: PATIENT NOT FASTINGP ERFORMED BY: CIERRA [facility] Ysvnbb0035 [address]y RoadDublin [place] [id number] Nitrite Ql (U) Negative Normal Comprehens shawn Internal Medicine; [facility] Work Phone: Nitrite Test strip Ql (U) Negative Normal [facility] Work Phone: pH (U) 5.5 [pH] Normal 5.0-7.5 [facility] Work Phone: Comment on above: PATIENT NOT FASTINGP ERFORMED BY: CIERRA Alicia Shieldslin6370 K[address] GoustoAtrium Health Carol[facility] [id number] pH Test strip (U) 5.5 [pH] Normal 5.0-7.5 Compreh ensive Internal Medicine Work Phone: Protein Ql (U) Negative Normal Comprehens shawn Internal Medicine Work Phone: Comment on above: PATIENT NOT FASTINGP ERFORMED BY: CIERRA Jenncheri ShieldsHvyhyu5221 Khoury GoustoAtrium Health Carol[facility] Center [id number] Protein Ql (U) Negative Normal Comprehens shawn Internal Medicine; [facility] Work Phone: Protein Test strip Ql (U) Negative Normal [facility] Work Phone: Specific gravity Relative Density (U) 1.020 1 Normal 1.005-1.03 0 [facility] Work Phone: Comment on above: PATIENT NOT FASTINGP ERFORMED BY: CIERRA Jenncheri Hqhizm9106 [facility] [id number] Urobilinogen (U) [Mass/Vol] 0.2 mg/dL Normal 0.0-1.9 [facility]; [facility] Work Phone: Urobilinogen Test strip mass conc (U) 0.2 mg/dL Normal 0.0-1.9 Comprehensiv e Internal Medicine Work Phone: Comment on above: PATIENT NOT FASTINGP ERFORMED BY: CIERRA LabKerrie Pxtksi9476 Khoury GoustoAtrium Health Carolinas [facility] Center [id number] Blood Glucose , Office (6996 2)Ordered By: Richelle Campos on 05-19-2011 Glucose Glucometer molar conc (BldC) 180 1 Normal [facility] Work Phone: HgA1C , Office (84535)Ordere d By: Richelle Campos on 05-19-2011 Hemoglobin A1c/Hemoglobin.total mass fraction (Bld) 6.1 % Normal 4.6 - 7.1 Comprehensiv e Internal Medicine Work Phone: CBC with manual diff ([id number]) Ordered By: Piggery Worker on 04-30-2011 Basophils #/vol (Bld) 0.0 {x10E3/uL} Normal 0.0-0.2 [facility] Work Phone: Comment on above: PATIENT WAS FASTINGP ERFORMED BY: [place] 6695570 [facility] [id number] Information: [id number] Basophils (Bld) [#/Vol] 0.0 10*3/uL Normal 0.0-0.2 [facility]; [facility] Work Phone: Basophils Auto #/vol (Bld) 0.0 {x10E3/uL} Normal 0.0-0.2 [facility] Work Phone: Basophils/100 WBC (Bld) 0 % Normal 0-3 [facility] Work Phone: Comment on above: PATIENT WAS FASTINGP ERFORMED BY: [place] [id number] [facility] [id number] Information: [id number] Basophils/100 WBC Auto (Bld) 0 % Normal 0-3 [facility] Work Phone: Eosinophils #/vol (Bld) 0.2 {x10E3/uL} Normal 0.0-0.4 [facility] Work Phone: Comment on above: PATIENT WAS FASTINGP ERFORMED BY: [place] [id number] [facility] [id number] Information: [id number] Eosinophils (Bld) [#/Vol] 0.2 10*3/uL Normal 0.0-0.4 [facility]; [facility] Work Phone: Eosinophils Auto #/vol (Bld) 0.2 {x10E3/uL} Normal 0.0-0.4 [facility] Work Phone: Eosinophils/100 WBC (Bld) 3 % Normal 0-7 [facility] Work Phone: Comment on above: PATIENT WAS FASTINGP ERFORMED BY: CIERRA [facility]6370 [facility] [id number] Information: [id number] Eosinophils/100 WBC Auto (Bld) 3 % Normal 0-7 [facility] Work Phone: Erythrocyte distribution width Auto Ratio (RBC) 13.9 % Normal 11.7-15.0 [facility] Work Phone: Erythrocyte distribution width Ratio (RBC) 13.9 % Normal 11.7-15.0 [facility] Work Phone: Comment on above: PATIENT WAS FASTINGP ERFORMED BY: CIERRA [place] [id number] [facility] [id number] Information: [id number] Hematocrit Auto Volume Fraction (Bld) 43.9 % Normal 36.0-50.0 [facility] Internal Medicine Work Phone: Hematocrit Volume Fraction (Bld) 43.9 % Normal 36.0-50.0 [facility] Work Phone: Comment on above: PATIENT WAS FASTINGP ERFORMED BY: CIERRA [place] [id number] [facility] [id number] Information: [id number] Hemoglobin mass conc (Bld) 15.2 g/dL Normal 12.5-17.0 [facility] Work Phone: Comment on above: PATIENT WAS FASTINGP ERFORMED BY: CIERRA [place] [id number] [facility] [id number] Information: [id number] Immature granulocytes #/vol (Bld) 0.0 {x10E3/uL} Normal 0.0-0.1 [facility] Work Phone: Comment on above: PATIENT WAS FASTINGP ERFORMED BY: CIERRA [place] [id number] [facility] [id number] Information: [id number] Immature granulocytes (Bld) [#/Vol] 0.0 10*3/uL Normal 0.0-0.1 [facility]; [facility] Work Phone: Immature granulocytes/100 WBC (Bld) 0 % Normal 0-2 [facility] Work Phone: Comment on above: Please note refere nce interval change PATIENT WAS FASTINGP ERFORMED BY: CIERRA [place] [id number] [facility] [id number] Information: [id number] Lymphocytes #/vol (Bld) 1.3 {x10E3/uL} Normal 0.7-4.5 [facility] Work Phone: Comment on above: PATIENT WAS FASTINGP ERFORMED BY: [address] [id number] Information: [id number] Lymphocytes (Bld) [#/Vol] 1.3 10*3/uL Normal 0.7-4.5 [facility]; [facility] Work Phone: Lymphocytes Auto #/vol (Bld) 1.3 {x10E3/uL} Normal 0.7-4.5 [facility] Work Phone: Lymphocytes/100 WBC (Bld) 20 % Normal [facility] Work Phone: Comment on above: PATIENT WAS FASTINGP ERFORMED BY: [place] [id number] [facility] [id number] Information: [id number] Lymphocytes/100 WBC Auto (Bld) 20 % Normal 14-46 [facility] Work Phone: MCH Auto Entitic mass (RBC) 31.2 pg Normal 27.0-34.0 [facility] Work Phone: MCH Entitic mass (RBC) 31.2 pg Normal 27.0-34.0 [facility] Work Phone: Comment on above: PATIENT WAS FASTINGP ERFORMED BY: [place] 6695570 [facility] [id number] Information: [id number] MCHC Auto mass conc (RBC) 34.6 g/dL Normal 32.0-36.0 [facility] Work Phone: MCHC mass conc (RBC) 34.6 g/dL Normal 32.0-36.0 [facility] Internal Medicine Work Phone: Comment on above: PATIENT WAS FASTINGP ERFORMED BY: [address] [id number] Information: [id number] MCV Auto Entitic volume (RBC) 90 fL Normal 80-98 [facility] Work Phone: MCV Entitic volume (RBC) 90 fL Normal 80-98 [facility] Work Phone: Comment on above: PATIENT WAS FASTINGP ERFORMED BY: [address] [id number] Information: [id number] Monocytes #/vol (Bld) 0.4 {x10E3/uL} Normal 0.1-1.0 [facility] Work Phone: Comment on above: PATIENT WAS FASTINGP ERFORMED BY: [place] [id number] [facility] [id number] Information: [id number] Monocytes (Bld) [#/Vol] 0.4 10*3/uL Normal 0.1-1.0 [facility]; [facility] Work Phone: Monocytes Auto #/vol (Bld) 0.4 {x10E3/uL} Normal 0.1-1.0 [facility] Work Phone: Monocytes/100 WBC (Bld) 6 % Normal -13 [facility] Work Phone: Comment on above: PATIENT WAS FASTINGP ERFORMED BY: [place] 6695570 [facility] [id number] Information: [id number] Monocytes/100 WBC Auto (Bld) 6 % Normal - [facility] Work Phone: Neutrophils #/vol (Bld) 4.6 {x10E3/uL} Normal 1.8-7.8 [facility] Work Phone: Comment on above: PATIENT WAS FASTINGP ERFORMED BY: CIERRA Painting70 [facility] [id number] Information: [id number] Neutrophils (Bld) [#/Vol] 4.6 10*3/uL Normal 1.8-7.8 [facility]; [facility] Work Phone: Neutrophils Auto #/vol (Bld) 4.6 {x10E3/uL} Normal 1.8-7.8 [facility] Work Phone: Neutrophils/100 WBC (Bld) 71 % Normal 40-74 [facility] Work Phone: Comment on above: PATIENT WAS FASTINGP ERFORMED BY: CIERRA Ellis6370 [facility] [id number] Information: [id number] Neutrophils/100 WBC Auto (Bld) 71 % Normal 40-74 [facility] Work Phone: Platelets #/vol (Bld) 198 {x10E3/uL} Normal 140-415 [facility] Work Phone: Comment on above: PATIENT WAS FASTINGP ERFORMED BY: CIERRA Ellis6370 [facility] [id number] Information: [id number] Platelets (Bld) [#/Vol] 198 10*3/uL Normal 140-415 [facility]; [facility] Work Phone: Platelets Auto #/vol (Bld) 198 {x10E3/uL} Normal 140-415 [facility] Work Phone: RBC #/vol (Bld) 4.87 {x10E6/uL} Normal 4.10-5.60 [facility] Internal Medicine Work Phone: Comment on above: PATIENT WAS FASTINGP ERFORMED BY: CIERRA Shieldslin6370 [facility] [id number] Information: [id number] RBC (Bld) [#/Vol] 4.87 10*6/uL Normal 4.10-5.60 [facility] Internal Medicine; [facility] Work Phone: RBC Auto #/vol (Bld) 4.87 {x10E6/uL} Normal 4.10-5.60 [facility] Work Phone: WBC #/vol (Bld) 6.6 {x10E3/uL} Normal 4.0-10.5 [facility] Internal Medicine Work Phone: Comment on above: PATIENT WAS FASTINGP ERFORMED BY: CIERRA Ellis6370 [facility] [id number] Information: [id number] WBC (Bld) [#/Vol] 6.6 10*3/uL Normal 4.0-10.5 [facility] Internal Medicine; [facility] Work Phone: WBC Auto #/vol (Bld) 6.6 {x10E3/uL} Normal 4.0-10.5 [facility] Work Phone: Lipid Panel ([id number])Ordered B y: Piggery Worker on 04-30-2011 Cholesterol in HDL mass conc 37 mg/dL Abnormal [facility] Work Phone: Comment on above: According to ATP-III Guidelines, HDL-C >59 mg/dL is considered anegative risk factor for CHD. PATIENT WAS FASTINGP ERFORMED BY: CIERRA Ellis6370 [facility] [id number] Cholesterol in LDL mass conc 122 mg/dL Abnormal 0-99 [facility] Work Phone: Comment on above: PATIENT WAS FASTINGP ERFORMED BY: CIERRA Shieldslin6370 [facility] [id number] Cholesterol in LDL/Cholesterol in HDL mass ratio 3.3 {ratio_units} Normal 0.0-3.6 [facility] Work Phone: Comment on above: PATIENT WAS FASTINGP ERFORMED BY: CIERRA Vargas Slaskf9966 [facility] [id number] Cholesterol in VLDL mass conc 18 mg/dL Normal 5-40 [facility] Work Phone: Comment on above: PATIENT WAS FASTINGP ERFORMED BY: CIERRA Shieldslin6370 [facility] [id number] Cholesterol mass conc 177 mg/dL Normal 100-199 Com prehensive Internal Medicine Work Phone: Comment on above: PATIENT WAS FASTINGP ERFORMED BY: CIERRA Jenn Bvgrzc1607 [facility] [id number] Triglyceride mass conc 92 mg/dL Normal 0-149 [facility] Work Phone: Comment on above: PATIENT WAS FASTINGP ERFORMED BY: CIERRA Shieldslin6370 [facility] [id number] Metabolic Panel, Comprehensi ve (47231)Ordered By: Piggery Worker on 04-30-2011 Albumin mass conc 3.9 g/dL Normal 3.5-4.8 Compreh ensive Internal Medicine Work Phone: Comment on above: PATIENT WAS FASTINGP ERFORMED BY: CIERRA Jenn Ffnatg4972 [facility] [id number] Albumin/Globulin mass ratio 1.4 {ratio} Normal 1.1-2.5 [facility] Work Phone: Comment on above: PATIENT WAS FASTINGP ERFORMED BY: CIERRA [facility] Bvmczb7247 [facility] [id number] ALP [Catalytic activity/Vol] 118 U/L Normal 25-160 [facility]; [facility] Work Phone: ALP enzyme act/vol 118 [iU]/L Normal 25-160 Compre [facility] Internal Medicine Work Phone: Comment on above: PATIENT WAS FASTINGP ERFORMED BY: CIERRA Barajas Wxrfpp4108 [facility] [id number] ALT [Catalytic activity/Vol] 13 U/L Normal 0-55 [facility]; [facility] Work Phone: ALT enzyme act/vol 13 [iU]/L Normal 0-55 [facility] Internal Medicine Work Phone: Comment on above: PATIENT WAS FASTINGP ERFORMED BY: CIERRA [facility] Gjkgjd5319 [address]y RoadDublin [place] [id number] AST [Catalytic activity/Vol] 20 U/L Normal 0-40 [facility]; [facility] Work Phone: AST enzyme act/vol 20 [iU]/L Normal 0-40 [facility] Internal Medicine Work Phone: Comment on above: PATIENT WAS FASTINGP ERFORMED BY: CIERRA [facility] Xvqtuc8349 [address]houry RoadDublin [place] [id number] Bilirubin mass conc 0.7 mg/dL Normal 0.0-1.2 [facility] Internal Medicine Work Phone: Comment on above: PATIENT WAS FASTINGP ERFORMED BY: CIERRA [facility] Kkeshv4457 [address]y RoadDublin [place] [id number] Calcium mass conc 9.1 mg/dL Normal 8.6-10.2 Compreh [facility] Work Phone: Comment on above: PATIENT WAS FASTINGP ERFORMED BY: CIERRA [facility] Obtgqc5531 [address]y RoadDublin [place] [id number] Chloride molar conc 104 mmol/L Normal 97-108 [facility] Internal Medicine Work Phone: Comment on above: PATIENT WAS FASTINGP ERFORMED BY: CIERRA [facility] Afkbxo5013 [address] RoadDublin [place] [id number] CO2 molar conc 23 mmol/L Normal 20-32 Comprehens [facility] Internal Medicine Work Phone: Comment on above: PATIENT WAS FASTINGP ERFORMED BY: CIERRA [facility] Xlljsi3519 [address]y RoadDublin [place] [id number] Creatinine mass conc 0.94 mg/dL Normal 0.76-1.27 [facility] Work Phone: Comment on above: PATIENT WAS FASTINGP ERFORMED BY: CIERRA [facility] Mdgxiy3869 [address]y RoadDublin [place] [id number] GFR/1.73 sq M predicted among blacks MDRD vol rate/area (S/P/Bld) 93 mL/min/{1.73_m2} Normal Comprehe nsive Internal Medicine Work Phone: Comment on above: Note: A persistent e GFR <60 mL/min/1.73 m2 (3 months or more) mayindicate chronic kidney disease. An eGFR >59 mL/min/1.73 m2 with anelevated urine protein also may indicate chronic kidney disease.Calculated using CKD-EPI formula. PATIENT WAS FASTINGP ERFORMED BY: CB [facility] Zrpymv0298 [address] GoustoAtrium Health Carol[facility] [id number] GFR/1.73 sq M predicted among non-blacks CKD-EPI vol rate/area (S/P/Bld) 80 mL/min/1.73 Normal [facility] Work Phone: Comment on above: PATIENT WAS FASTINGP ERFORMED BY: [employer] [place]6[address] GoustoAtrium Health Carolinas [facility] Center [id number] Globulin Calculated mass conc (S) 2.7 g/dL Normal 1.5-4.5 [facility] Work Phone: Globulin mass conc (S) 2.7 g/dL Normal 1.5-4.5 [facility] Work Phone: Comment on above: PATIENT WAS FASTINGP ERFORMED BY: [employer] [facility]rp Bmkqvb6600 [address] GoustoAtrium Health Carol[facility] [id number] Glucose mass conc 164 mg/dL Abnormal 65-99 Compreh ensive Internal Medicine Work Phone: Comment on above: PATIENT WAS FASTINGP ERFORMED BY: [employer] [facility] Ldcliv5408 [facility] [id number] Potassium molar conc 4.3 mmol/L Normal 3.5-5.2 Comp rehensive Internal Medicine Work Phone: Comment on above: PATIENT WAS FASTINGP ERFORMED BY: [employer] [facility] Qzxfck1476 [address] GoustoAtrium Health Carol[facility] [id number] Protein mass conc 6.6 g/dL Normal 6.0-8.5 Compreh ensive Internal Medicine Work Phone: Comment on above: PATIENT WAS FASTINGP ERFORMED BY: CIERRA LabSt. [facility] Kzbpex2223 K[address] Roadblin [place] [id number] Sodium molar conc 141 mmol/L Normal 135-145 Compreh ensive Internal Medicine Work Phone: Comment on above: PATIENT WAS FASTINGP ERFORMED BY: CIERRA LabCo Taksdo6251 [address] Roadblin [place] [id number] Urea nitrogen mass conc 15 mg/dL Normal 8-27 [facility] Work Phone: Comment on above: PATIENT WAS FASTINGP ERFORMED BY: LabBeaumont [facility]6370 [address] RoadUnc Health Rockinghamin [place] [id number] Urea nitrogen/Creatinine mass ratio 16 mg/mg Normal 10-22 [facility] Work Phone: Comment on above: PATIENT WAS FASTINGP ERFORMED BY: CIERRA [facility] Uhpwrk3122 [address] [facility] [place] [id number] TSH (57333)Ordered By: ScratchJre m Wharf Operator on 04-30-2011 Thyrotropin Qn 1.820 {uIU/mL} Normal 0.450-4.50 0 [facility] Work Phone: Comment on above: PATIENT WAS FASTINGP ERFORMED BY: Lab[facility]6[address] [facility]in [place] [id number] URINALYSIS W/O MICRO ([id number]) Ordered By: Piggery Worker on 04-30-2011 Appearance Nom (U) Clear Normal Compre hensive Internal Medicine Work Phone: Comment on above: PATIENT WAS FASTINGP ERFORMED BY: LabSt. [facility] Wanvuz9662 Khoury RoadUnc Health Rockinghamin [place] [id number] Bilirubin Ql (U) Negative Normal Comprehe nsive Internal Medicine Work Phone: Comment on above: PATIENT WAS FASTINGP ERFORMED BY: LabCo Fzszdi3808 [address]y RoadDublin [place] [id number] Bilirubin Ql (U) Negative Normal Comprehe nsive Internal Medicine; [facility] Work Phone: Color Nom (U) Yellow Normal Comprehensi ve Internal Medicine Work Phone: Comment on above: PATIENT WAS FASTINGP ERFORMED BY: CIERRA LabCocheri Ghxvkd5439 K[address]y RoadDublin [place] [id number] Glucose Ql (U) Negative Normal Comprehens shawn Internal Medicine Work Phone: Comment on above: PATIENT WAS FASTINGP ERFORMED BY: CIERRA [facility] Krlwog8313 [address] RoadDublin [place] [id number] Glucose Ql (U) Negative Normal Comprehens shawn Internal Medicine; [facility] Work Phone: Hemoglobin Ql (U) Negative Normal Compreh ensive Internal Medicine Work Phone: Comment on above: PATIENT WAS FASTINGP ERFORMED BY: CIERRA LabTierra ShieldsQgsarp7251 K[address] RoadDublin [place] [id number] Hemoglobin Ql (U) Negative Normal Compreh ensive Internal Medicine; [facility] Work Phone: Hemoglobin Test strip Ql (U) Negative Normal [facility] Work Phone: Ketones Ql (U) Negative Normal Comprehens shawn Internal Medicine Work Phone: Comment on above: PATIENT WAS FASTINGP ERFORMED BY: CIERRA LabCocheri ShieldsAetzmf8397 Khoury RoadDublin [place] [id number] Ketones Ql (U) Negative Normal Comprehens shawn [facility] Medicine; [facility] Work Phone: Leukocyte esterase Test strip Ql (U) Negative Normal [facility] Work Phone: Comment on above: PATIENT WAS FASTINGP ERFORMED BY: CIERRA LabCocheri ShieldsRmhuzq2401 Khoury RoadDublin [place] [id number] Leukocyte esterase Test strip Ql (U) Negative Normal [facility]; [facility] Work Phone: Microscopic observation LM Nom (Urine sed) MICRON Normal [facility] Work Phone: Comment on above: Microscopic follows if indicated. PATIENT WAS FASTINGP ERFORMED BY: CIERRA [facility] Bgiwox2292 [address] RoadDublin [place] [id number] Nitrite Ql (U) Negative Normal Comprehens shawn Internal Medicine Work Phone: Comment on above: PATIENT WAS FASTINGP ERFORMED BY: CIERRA LabTierra ShieldsMfpxgp0866 Khoury RoadDublin [place] [id number] Nitrite Ql (U) Negative Normal Comprehens shawn [facility]; [facility] Work Phone: Nitrite Test strip Ql (U) Negative Normal [facility] Work Phone: pH (U) 6.5 [pH] Normal 5.0-7.5 [facility] Work Phone: Comment on above: PATIENT WAS FASTINGP ERFORMED BY: CIERRA LabTierra ShieldsJvhtin3013 Khoury RoadDublin [place] [id number] pH Test strip (U) 6.5 [pH] Normal 5.0-7.5 Compreh ensive Internal Medicine Work Phone: Protein Ql (U) Negative Normal Comprehens shawn Internal Medicine Work Phone: Comment on above: PATIENT WAS FASTINGP ERFORMED BY: CIERRA Ellis6370 [address] Diagnovusin [place] [id number] Protein Ql (U) Negative Normal Comprehens shawn [facility]; [facility] Work Phone: Protein Test strip Ql (U) Negative Normal [facility] Work Phone: Specific gravity Relative Density (U) 1.023 1 Normal 1.005-1.03 0 [facility] Work Phone: Comment on above: PATIENT WAS FASTINGP ERFORMED BY: CIERRA Ellis6[address] [facility] [id number] Urobilinogen (U) [Mass/Vol] 0.2 mg/dL Normal 0.0-1.9 [facility]; [facility] Work Phone: Urobilinogen Test strip mass conc (U) 0.2 mg/dL Normal 0.0-1.9 Comprehensiv e Internal Medicine Work Phone: Comment on above: PATIENT WAS FASTINGP ERFORMED BY: CIERRA LabTierra Etxhxu9[address] [facility] GladwinDublin [place] [id number] Blood Glucose , Office (8296 2)Ordered By: Richelle Campos on 02-15-2011 Glucose Glucometer molar conc (BldC) 151 1 Normal [facility] Work Phone: HgA1C , Office (78153)Abelardo monteiro By: Richelle Campos on 02-15-2011 Hemoglobin A1c/Hemoglobin.total mass fraction (Bld) 6.5 % Normal 4.6 - 7.1 Comprehensiv e Internal Medicine Work Phone: HEPATIC FUNCTION PANEL (2173 6)Ordered By: Piggery Worker on 01-27-2011 Albumin mass conc 4.3 g/dL Normal 3.5-4.8 Compreh ensive Internal Medicine Work Phone: Comment on above: PATIENT WAS FASTINGP ERFORMED BY: CIERRA LabCocheri ShieldsXvxpwo0659 [facility] [id number] Information: [id number] ALP [Catalytic activity/Vol] 109 U/L Normal 25-160 [facility]; [facility] Work Phone: ALP enzyme act/vol 109 [iU]/L Normal 25-160 Compre [facility] Internal Medicine Work Phone: Comment on above: PATIENT WAS FASTINGP ERFORMED BY: CIERRA [facility] Rnmtqp3679 [facility] [id number] Information: [id number] ALT [Catalytic activity/Vol] 12 U/L Normal 0-55 [facility]; [facility] Work Phone: ALT enzyme act/vol 12 [iU]/L Normal 0-[address] [facility] Internal Medicine Work Phone: Comment on above: PATIENT WAS FASTINGP ERFORMED BY: CIERRA [facility] Crnmbi5784 [facility] [id number] Information: [id number] AST [Catalytic activity/Vol] 18 U/L Normal 0-40 [facility]; [facility] Work Phone: AST enzyme act/vol 18 [iU]/L Normal 0-[address] [facility] Internal Medicine Work Phone: Comment on above: PATIENT WAS FASTINGP ERFORMED BY: CIERRA [facility] Rswyll8966 [facility] [id number] Information: [id number] Bilirubin mass conc 0.9 mg/dL Normal 0.0-1.2 Compr [facility] Internal Medicine Work Phone: Comment on above: PATIENT WAS FASTINGP ERFORMED BY: CIERRA Barajas Yquwgl0160 [facility] [id number] Information: [id number] Bilirubin.direct mass conc 0.19 mg/dL Normal 0.00-0.40 [facility] Work Phone: Comment on above: PATIENT WAS FASTINGP ERFORMED BY: LabCoInspira Medical Center VinelandLqnsxh7604 [facility] [id number] Information: [id number] Protein mass conc 6.9 g/dL Normal 6.0-8.5 [facility] Internal [facility] Work Phone: Comment on above: PATIENT WAS FASTINGP ERFORMED BY: CIERRA TejaBeaumont Hospital6370 [facility] [id number] Information: [id number] LIPID PANEL (56118)Ordered B y: Piggery Worker on 01-27-2011 Cholesterol in HDL mass conc 36 mg/dL Abnormal [facility] Work Phone: Comment on above: According to ATP-III Guidelines, HDL-C >59 mg/dL is considered anegative risk factor for CHD. PATIENT WAS FASTINGP ERFORMED BY: LabCo Bjtgsx6803 [facility] [id number] Cholesterol in LDL mass conc 114 mg/dL Abnormal 0-99 [facility] Work Phone: Comment on above: PATIENT WAS FASTINGP ERFORMED BY: LabCo Bxlxhk4461 [facility] [id number] Cholesterol in LDL/Cholesterol in HDL mass ratio 3.2 {ratio_units} Normal 0.0-3.6 [facility] Work Phone: Comment on above: PATIENT WAS FASTINGP ERFORMED BY: LabCo Ahrzev8966 [facility] [id number] Cholesterol in VLDL mass conc 24 mg/dL Normal 5-40 [facility] Work Phone: Comment on above: PATIENT WAS FASTINGP ERFORMED BY: CIERRA Jenncheri Skhpwa3705 [facility] [id number] Cholesterol mass conc 174 mg/dL Normal 100-199 Com prehensive Internal Medicine Work Phone: Comment on above: PATIENT WAS FASTINGP ERFORMED BY: CIERRA Shieldslin6370 [facility] [id number] Triglyceride mass conc 119 mg/dL Normal 0-149 [facility] Work Phone: Comment on above: PATIENT WAS FASTINGP ERFORMED BY: CIERRA Vargas Lsxqqc5543 [facility] [id number] Blood Glucose , Office (6896 2)Ordered By: Richelle Campos on 10-22-2010 Glucose Glucometer molar conc (BldC) 113 1 Normal [facility] Work Phone: HgA1C , Office (27344)Ordere d By: Richelle Campos on 10-22-2010 Hemoglobin A1c/Hemoglobin.total mass fraction (Bld) 6.2 % Normal 4.6 - 7.1 Comprehensiv e Internal Medicine Work Phone: HEPATIC FUNCTION PANEL (5542 6)Ordered By: Piggery Worker on 10-15-2010 Albumin mass conc 4.4 g/dL Normal 3.5-4.8 Compreh ensive Internal Medicine Work Phone: Comment on above: PATIENT WAS FASTINGP ERFORMED BY: CIERRA Vargas Ycarcy1352 [facility] [id number] ALP [Catalytic activity/Vol] 132 U/L Normal 25-160 [facility]; [facility] Work Phone: ALP enzyme act/vol 132 [iU]/L Normal 25-160 Compre hensive Internal Medicine Work Phone: Comment on above: PATIENT WAS FASTINGP ERFORMED BY: CIERRA JennInspira Medical Center VinelandCwnmdi8400 [facility] [id number] ALT [Catalytic activity/Vol] 16 U/L Normal 0-55 [facility]; [facility] Work Phone: ALT enzyme act/vol 16 [iU]/L Normal 0-55 [facility] Internal Medicine Work Phone: Comment on above: PATIENT WAS FASTINGP ERFORMED BY: CIERRA LabCocheri Mbnhni36[address] [facility]bl[facility] [place] [id number] AST [Catalytic activity/Vol] 22 U/L Normal 0-40 [facility]; [facility] Work Phone: AST enzyme act/vol 22 [iU]/L Normal 0-40 [facility] Internal Medicine Work Phone: Comment on above: PATIENT WAS FASTINGP ERFORMED BY: CIERRA [facility] Zkibsk1675 [address] [facility] [id number] Bilirubin mass conc 0.8 mg/dL Normal 0.0-1.2 [facility] Internal Medicine Work Phone: Comment on above: PATIENT WAS FASTINGP ERFORMED BY: CIERRA [facility] Htflbo9137 Khoury [facility] [id number] Bilirubin.direct mass conc 0.19 mg/dL Normal 0.00-0.40 [facility] Work Phone: Comment on above: PATIENT WAS FASTINGP ERFORMED BY: CIERRA LabCocheri Ifphwg7391 Khoury [facility] [id number] Protein mass conc 7.0 g/dL Normal 6.0-8.5 [facility] Internal Medicine Work Phone: Comment on above: PATIENT WAS FASTINGP ERFORMED BY: CIERRA [facility] Gqlggk3822 [facility] [id number] LIPID PANEL ([id number])Ordered B y: Piggery Worker on 10-15-2010 Cholesterol in HDL mass conc 40 mg/dL Normal [facility] Work Phone: Comment on above: According to ATP-III Guidelines, HDL-C >59 mg/dL is considered anegative risk factor for CHD. PATIENT WAS FASTINGP ERFORMED BY: CIERRA [facility] Wigrgl1502 Khoury [facility] [place] [id number] Cholesterol in LDL mass conc 134 mg/dL Abnormal 0-99 [facility] Work Phone: Comment on above: PATIENT WAS FASTINGP ERFORMED BY: CIERRA Shieldslin6370 [facility] [id number] Cholesterol in LDL/Cholesterol in HDL mass ratio 3.4 {ratio_units} Normal 0.0-3.6 [facility] Work Phone: Comment on above: PATIENT WAS FASTINGP ERFORMED BY: CIERRA Shieldslin6370 [facility] [id number] Cholesterol in VLDL mass conc 16 mg/dL Normal 5-40 [facility] Work Phone: Comment on above: PATIENT WAS FASTINGP ERFORMED BY: CIERRA Shieldslin6370 [facility] [id number] Cholesterol mass conc 190 mg/dL Normal 100-199 [facility] prehensive Internal Medicine Work Phone: Comment on above: PATIENT WAS FASTINGP ERFORMED BY: CIERRA Shieldslin6370 [facility] [id number] Triglyceride mass conc 79 mg/dL Normal 0-149 [facility] Work Phone: Comment on above: PATIENT WAS FASTINGP ERFORMED BY: CIERRA Shieldslin6370 [facility] [id number] Blood Glucose , Office (8296 2)Ordered By: Richelle Campos on 07-16-2010 Glucose Glucometer molar conc (BldC) 136 1 Normal [facility] Work Phone: HgA1C , Office ([phone])Ordere d By: Richelle Campos on 07-16-2010 Hemoglobin A1c/Hemoglobin.total mass fraction (Bld) 6.3 % Normal 4.6 - 7.1 Comprehensiv e Internal Medicine Work Phone: CBC WITH MANUAL DIFF (44821) Ordered By: Piggery Worker on 07-09-2010 Basophils #/vol (Bld) 0.0 {x10E3/uL} Normal 0.0-0.2 [facility] Work Phone: Comment on above: PATIENT WAS FASTINGP ERFORMED BY: CIERRA Shieldslin6370 [facility] [id number] Information: [id number] Basophils (Bld) [#/Vol] 0.0 10*3/uL Normal 0.0-0.2 [facility]; [facility] Work Phone: Basophils Auto #/vol (Bld) 0.0 {x10E3/uL} Normal 0.0-0.2 [facility] Work Phone: Basophils/100 WBC (Bld) 0 % Normal 0-3 [facility] Work Phone: Comment on above: PATIENT WAS FASTINGP ERFORMED BY: [facility] HospitalCore Essence OrthopaedicsThomas Ville 8443770 [facility] [id number] Information: [id number] Basophils/100 WBC Auto (Bld) 0 % Normal 0-3 [facility] Work Phone: Eosinophils #/vol (Bld) 0.2 {x10E3/uL} Normal 0.0-0.4 [facility] Work Phone: Comment on above: PATIENT WAS FASTINGP ERFORMED BY: BegunInspira Medical Center VinelandDeeqxb8850 [facility] [id number] Information: [id number] Eosinophils (Bld) [#/Vol] 0.2 10*3/uL Normal 0.0-0.4 [facility]; [facility] Work Phone: Eosinophils Auto #/vol (Bld) 0.2 {x10E3/uL} Normal 0.0-0.4 [facility] Work Phone: Eosinophils/100 WBC (Bld) 3 % Normal 0-7 [facility] Work Phone: Comment on above: PATIENT WAS FASTINGP ERFORMED BY: [facility]6370 [facility] [id number] Information: [id number] Eosinophils/100 WBC Auto (Bld) 3 % Normal 0-7 [facility] Work Phone: Erythrocyte distribution width Auto Ratio (RBC) 14.0 % Normal 11.7-15.0 [facility] Work Phone: Erythrocyte distribution width Ratio (RBC) 14.0 % Normal 11.7-15.0 [facility] Internal [facility] Work Phone: Comment on above: PATIENT WAS FASTINGP ERFORMED BY: CIERRA [facility] Yvggii1192 [facility] [id number] Information: [id number] Hematocrit Auto Volume Fraction (Bld) 46.1 % Normal 36.0-50.0 [facility] Internal Medicine Work Phone: Hematocrit Volume Fraction (Bld) 46.1 % Normal 36.0-50.0 [facility] Internal [facility] Work Phone: Comment on above: PATIENT WAS FASTINGP ERFORMED BY: CIERRA [facility] Ymjtrb5616 [facility] [id number] Information: [id number] Hemoglobin mass conc (Bld) 15.2 g/dL Normal 12.5-17.0 [facility] Work Phone: Comment on above: PATIENT WAS FASTINGP ERFORMED BY: CIERRA [place] 6642770 [facility] [id number] Information: [id number] Immature granulocytes #/vol (Bld) 0.0 {x10E3/uL} Normal 0.0-0.1 [facility] Work Phone: Comment on above: PATIENT WAS FASTINGP ERFORMED BY: CIERRA [facility]6370 [facility] [id number] Information: [id number] Immature granulocytes (Bld) [#/Vol] 0.0 10*3/uL Normal 0.0-0.1 [facility]; [facility] Work Phone: Immature granulocytes/100 WBC (Bld) 0 % Normal 0-1 [facility] Work Phone: Comment on above: PATIENT WAS FASTINGP ERFORMED BY: [place] 6695570 [facility] [id number] Information: [id number] Lymphocytes #/vol (Bld) 1.3 {x10E3/uL} Normal 0.7-4.5 [facility] Work Phone: Comment on above: PATIENT WAS FASTINGP ERFORMED BY: [place] 6695570 [facility] [id number] Information: [id number] Lymphocytes (Bld) [#/Vol] 1.3 10*3/uL Normal 0.7-4.5 [facility]; [facility] Work Phone: Lymphocytes Auto #/vol (Bld) 1.3 {x10E3/uL} Normal 0.7-4.5 [facility] Work Phone: Lymphocytes/100 WBC (Bld) 15 % Normal 14-46 [facility] Work Phone: Comment on above: PATIENT WAS FASTINGP ERFORMED BY: [place] 6695570 [facility] [id number] Information: [id number] Lymphocytes/100 WBC Auto (Bld) 15 % Normal 14-46 [facility] Work Phone: MCH Auto Entitic mass (RBC) 30.0 pg Normal 27.0-34.0 [facility] Work Phone: MCH Entitic mass (RBC) 30.0 pg Normal 27.0-34.0 [facility] Work Phone: Comment on above: PATIENT WAS FASTINGP ERFORMED BY: [place] 6695570 [facility] [id number] Information: [id number] MCHC Auto mass conc (RBC) 33.0 g/dL Normal 32.0-36.0 [facility] Work Phone: MCHC mass conc (RBC) 33.0 g/dL Normal 32.0-36.0 Comp [facility] Internal Medicine Work Phone: Comment on above: PATIENT WAS FASTINGP ERFORMED BY: [place] 6695570 [facility] [id number] Information: [id number] MCV Auto Entitic volume (RBC) 91 fL Normal 80-98 [facility] Work Phone: MCV Entitic volume (RBC) 91 fL Normal 80-98 [facility] Work Phone: Comment on above: PATIENT WAS FASTINGP ERFORMED BY: CIERRA [facility] Hospitalcheri ShieldsDpyjla[address] [id number] Information: [id number] Monocytes #/vol (Bld) 0.5 {x10E3/uL} Normal 0.1-1.0 [facility] Work Phone: Comment on above: PATIENT WAS FASTINGP ERFORMED BY: CIERRA [facility] CenterTierra [address] [id number] Information: [id number] Monocytes (Bld) [#/Vol] 0.5 10*3/uL Normal 0.1-1.0 [facility]; [facility] Work Phone: Monocytes Auto #/vol (Bld) 0.5 {x10E3/uL} Normal 0.1-1.0 [facility] Work Phone: Monocytes/100 WBC (Bld) 5 % Normal 4-13 [facility] Work Phone: Comment on above: PATIENT WAS FASTINGP ERFORMED BY: CIERRA [facility] Hospitalcheri ShieldsApexkt8139 [facility] [id number] Information: [id number] Monocytes/100 WBC Auto (Bld) 5 % Normal 4-13 [facility] Work Phone: Neutrophils #/vol (Bld) 6.7 {x10E3/uL} Normal 1.8-7.8 [facility] Work Phone: Comment on above: PATIENT WAS FASTINGP ERFORMED BY: CIERRA [place] 6642770 [facility] [id number] Information: [id number] Neutrophils (Bld) [#/Vol] 6.7 10*3/uL Normal 1.8-7.8 [facility]; [facility] Work Phone: Neutrophils Auto #/vol (Bld) 6.7 {x10E3/uL} Normal 1.8-7.8 [facility] Work Phone: Neutrophils/100 WBC (Bld) 77 % Abnormal 40-74 [facility] Work Phone: Comment on above: PATIENT WAS FASTINGP ERFORMED BY: CIERRA MediamindMtcheri ShieldsRgcsoa0750 [facility] [id number] Information: [id number] Neutrophils/100 WBC Auto (Bld) 77 % Abnormal 40-74 [facility] Work Phone: Platelets #/vol (Bld) 198 {x10E3/uL} Normal 140-415 [facility] Work Phone: Comment on above: PATIENT WAS FASTINGP ERFORMED BY: CIERRA BegunInspira Medical Center VinelandWbkzix5147 [facility] [id number] Information: [id number] Platelets (Bld) [#/Vol] 198 10*3/uL Normal 140-415 [facility]; [facility] Work Phone: Platelets Auto #/vol (Bld) 198 {x10E3/uL} Normal 140-415 [facility] Work Phone: RBC #/vol (Bld) 5.07 {x10E6/uL} Normal 4.10-5.60 [facility] Internal Medicine Work Phone: Comment on above: PATIENT WAS FASTINGP ERFORMED BY: CIERRA [facility]6370 [facility] [id number] Information: [id number] RBC (Bld) [#/Vol] 5.07 10*6/uL Normal 4.10-5.60 [facility] Internal Medicine; [facility] Work Phone: RBC Auto #/vol (Bld) 5.07 {x10E6/uL} Normal 4.10-5.60 [facility] Work Phone: WBC #/vol (Bld) 8.8 {x10E3/uL} Normal 4.0-10.5 [facility] Work Phone: Comment on above: PATIENT WAS FASTINGP ERFORMED BY: CIERRA MediamindTierra Fnkgjk0662 [facility] [id number] Information: [id number] WBC (Bld) [#/Vol] 8.8 10*3/uL Normal 4.0-10.5 Compre [facility] Internal [facility]; [facility] Work Phone: WBC Auto #/vol (Bld) 8.8 {x10E3/uL} Normal 4.0-10.5 [facility] Work Phone: LIPID PANEL ([id number])Ordered B y: Piggery Worker on 07-09-2010 Cholesterol in HDL mass conc 38 mg/dL Abnormal [facility] Work Phone: Comment on above: According to ATP-III Guidelines, HDL-C >59 mg/dL is considered anegative risk factor for CHD. PATIENT WAS FASTINGP ERFORMED BY: CIERRA Begun Chitsr7105 [facility] [id number] Cholesterol in LDL mass conc 123 mg/dL Abnormal 0-99 [facility] Work Phone: Comment on above: PATIENT WAS FASTINGP ERFORMED BY: CIERRA Begun Mbjffs6552 [facility] [id number] Cholesterol in LDL/Cholesterol in HDL mass ratio 3.2 {ratio_units} Normal 0.0-3.6 [facility] Work Phone: Comment on above: PATIENT WAS FASTINGP ERFORMED BY: CIERRA [facility] Pahncd2544 [facility] [id number] Cholesterol in VLDL mass conc 12 mg/dL Normal 5-40 [facility] Work Phone: Comment on above: PATIENT WAS FASTINGP ERFORMED BY: CIERRA LabCore Essence Orthopaedicsrp Csbxfr8027 [facility] [id number] Cholesterol mass conc 173 mg/dL Normal 100-199 Com prehensive Internal Medicine Work Phone: Comment on above: PATIENT WAS FASTINGP ERFORMED BY: CIERRA LabTierra ShieldsMmhtov9361 [facility] [id number] Triglyceride mass conc 59 mg/dL Normal 0-149 [facility] Work Phone: Comment on above: PATIENT WAS FASTINGP ERFORMED BY: CIERRA LabKerrie Tckfur8171 [facility] [id number] METABOLIC PANEL, COMPREHENSI VE (74744)Ordered By: Piggery Worker on 07-09-2010 Albumin mass conc 3.9 g/dL Normal 3.5-4.8 Compreh [facility] Internal Medicine Work Phone: Comment on above: PATIENT WAS FASTINGP ERFORMED BY: CIERRA Shieldslin6370 [facility] [id number] Albumin/Globulin mass ratio 1.4 {ratio} Normal 1.1-2.5 [facility] Work Phone: Comment on above: PATIENT WAS FASTINGP ERFORMED BY: Jenn Sgcago9168 [facility] [id number] ALP [Catalytic activity/Vol] 116 U/L Normal 25-160 [facility]; [facility] Internal [facility] Work Phone: ALP enzyme act/vol 116 [iU]/L Normal 25-160 [facility] Internal Medicine Work Phone: Comment on above: PATIENT WAS FASTINGP ERFORMED BY: CIERRA LabKerrie Ytmnfk1879 [facility] [id number] ALT [Catalytic activity/Vol] 14 U/L Normal 0-55 [facility]; [facility] Work Phone: ALT enzyme act/vol 14 [iU]/L Normal 0-55 [facility] Internal Medicine Work Phone: Comment on above: PATIENT WAS FASTINGP ERFORMED BY: CIERRA LabCo Zrgldp3126 [facility] [id number] AST [Catalytic activity/Vol] 21 U/L Normal 0-40 [facility]; [facility] Work Phone: AST enzyme act/vol 21 [iU]/L Normal 0-40 Compre [facility] Internal Medicine Work Phone: Comment on above: PATIENT WAS FASTINGP ERFORMED BY: CIERRA LabCocheri ShieldsFdwecy2768 Khoury [facility] [id number] Bilirubin mass conc 0.9 mg/dL Normal 0.0-1.2 Compr ensive Internal Medicine Work Phone: Comment on above: PATIENT WAS FASTINGP ERFORMED BY: CIERRA [facility] Hzeotg0182 Khoury [facility] [id number] Calcium mass conc 8.6 mg/dL Normal 8.6-10.2 Compreh ensive Internal Medicine Work Phone: Comment on above: PATIENT WAS FASTINGP ERFORMED BY: CIERRA LabCocheri ShieldsGrrtyl3813 [facility] [id number] Chloride molar conc 107 mmol/L Normal 97-108 Compr [facility] Internal Medicine Work Phone: Comment on above: PATIENT WAS FASTINGP ERFORMED BY: CIERRA LabCocheri Ergsmf8875 [facility] [id number] CO2 molar conc 21 mmol/L Normal 20-32 Comprehens shawn Internal Medicine Work Phone: Comment on above: PATIENT WAS FASTINGP ERFORMED BY: CIERRA LabCocheri Lzmwwi4876 [facility] [id number] Creatinine mass conc 0.91 mg/dL Normal 0.76-1.27 Comp [facility] Internal Medicine Work Phone: Comment on above: PATIENT WAS FASTINGP ERFORMED BY: CIERRA [facility] Oocxca2534 [facility] [id number] GFR/1.73 sq M predicted among blacks MDRD [...] [email or web address]. PATIENT WAS FASTINGP ERFORMED BY: CIERRA LabMtcheri ShieldsRbynve7790 [facility] [id number] GFR/1.73 sq M.predicted MDRD (S/P/Bld) [Vol rate/Area] mL/min/{1.73_m2} Normal [facility] Work Phone: Comment on above: PATIENT WAS FASTINGP ERFORMED BY: CIERRA [facility]jaSt. [facility] Ivmiaq7885 [facility] [id number] GFR/1.73 sq M.predicted MDRD vol rate/area mL/min/{1.73_m2} Normal [facility] Work Phone: Comment on above: PATIENT WAS FASTINGP ERFORMED BY: CIERRA LezamaMtcheri ShieldsEzyxuj7033 [facility] [id number] Globulin Calculated mass conc (S) 2.7 g/dL Normal 1.5-4.5 [facility] Work Phone: Globulin mass conc (S) 2.7 g/dL Normal 1.5-4.5 [facility] Work Phone: Comment on above: PATIENT WAS FASTINGP ERFORMED BY: CIERRA Shieldslin6370 [facility] [id number] Glucose mass conc 96 mg/dL Normal 65-99 Compreh ensive Internal Medicine Work Phone: Comment on above: PATIENT WAS FASTINGP ERFORMED BY: CIERRA LezamaSt. [facility] Hwpaex6805 [facility] [id number] Potassium molar conc 4.3 mmol/L Normal 3.5-5.2 Comp rehensive Internal Medicine Work Phone: Comment on above: PATIENT WAS FASTINGP ERFORMED BY: CIERRA LabSt. [facility] Uplljk4467 [facility] [id number] Protein mass conc 6.6 g/dL Normal 6.0-8.5 Compreh ensive Internal Medicine Work Phone: Comment on above: PATIENT WAS FASTINGP ERFORMED BY: CB LabAnthony Ville [id number] [facility] [id number] Sodium molar conc 140 mmol/L Normal 135-145 Compreh ensive Internal Medicine Work Phone: Comment on above: PATIENT WAS FASTINGP ERFORMED BY: CIERRA Ellis6370 [facility] [id number] Urea nitrogen mass conc 15 mg/dL Normal 5-26 [facility] Work Phone: Comment on above: PATIENT WAS FASTINGP ERFORMED BY: CIERRA Barajas Nacapq5001 [facility] [id number] Urea nitrogen/Creatinine mass ratio 16 mg/mg Normal 8-27 [facility] Work Phone: Comment on above: PATIENT WAS FASTINGP ERFORMED BY: CIERRA Shieldslin6370 [facility] [id number] MICROALBUMINOrdered By: ScratchJr em Wharf Operator on 07-09-2010 Albumin DL <= 20 mg/L mass conc (U) 9.0 ug/mL Normal 0.0-17.0 [facility] Work Phone: Comment on above: PATIENT WAS FASTINGP ERFORMED BY: CIERRA Barajas Fnlrop1693 [facility] [id number] Albumin/Creatinine mass ratio (U) 5.1 {mg/g_creat} Normal 0.0-30.0 [facility] Work Phone: Comment on above: PATIENT WAS FASTINGP ERFORMED BY: CIERRA Barajas Djkkbc5954 [facility] [id number] Creatinine mass conc (U) 175.1 mg/dL Normal 22.0-328.0 [facility] Work Phone: Comment on above: PATIENT WAS FASTINGP ERFORMED BY: CIERRA Barajas Lrycfj1720 [facility] [id number] TSH ([id number])Ordered By: ScratchJre m Wharf Operator on 07-09-2010 Thyrotropin Qn 1.230 {uIU/mL} Normal 0.450-4.50 0 [facility] Work Phone: Comment on above: PATIENT WAS FASTINGP ERFORMED BY: [employer] [facility] Pndhkw5829 [facility] [id number] Blood Glucose , Office (8296 2)Ordered By: Richelle Campos on 04-17-2010 Glucose Glucometer molar conc (BldC) 163 1 Normal [facility] Work Phone: Comment on above: done km Blood Glucose , Office (8296 2)Ordered By: Richelle Campos on 01-16-2010 Glucose Glucometer molar conc (BldC) 168 1 Normal [facility] Work Phone: HgA1C , Office (50366)Ordere d By: Richelle Campos on 01-16-2010 Hemoglobin A1c/Hemoglobin.total mass fraction (Bld) 6.4 % Normal 4.6 - 7.1 Comprehensiv e Internal Medicine Work Phone: PSA Total+% FreeOrdered By: Piggery Worker on 10-27-2009 Prostate specific Ag mass conc 4.9 ng/mL Abnormal 0.0-4.0 [facility] Work Phone: Comment on above: Raji ECLIA methodol ogy..According to the [place] [employer], Serum PSA shoulddecrease and remain at undetectable levels after radicalprostatectomy. The AUA defines biochemical recurrence as an initialPSA value 0.2 ng/mL or greater followed by a subsequent confirmatoryPSA value 0.2 ng/mL or greater.Values obtained with different assay methods or kits cannot be usedinterchangeably. Results cannot be interpreted as absolute evidenceof the presence or absence of malignant disease. PERFORMED BY: RegisterPatient6370 [employer] [place] [id number] PSA Free mass conc 0.93 ng/mL Normal [facility] Internal Medicine Work Phone: Comment on above: Raji ECLIA methodol ogy. PERFORMED BY: RegisterPatient6370 [employer] [id number] PSA Free/Prostate specific Ag.total mass fraction 19.0 [...] for any other populationof men. PERFORMED BY: [employer] Lab [place] Qskeht0630 [place] DiagnovusFirst[facility] [id number] Blood Glucose , Office (8296 2)Ordered By: Richelle Campos on 10-17-2009 Glucose Glucometer molar conc ([facility]) 102 1 Normal [facility] Work Phone: Comment on above: done km CBC WITH MANUAL DIFF (77303) Ordered By: Piggery Worker on 10-17-2009 Basophils #/vol (Bld) 0.0 {x10E3/uL} Normal 0.0-0.2 [facility] Work Phone: Comment on above: PATIENT WAS FASTINGP ERFORMED BY: DataContact [facility] [id number] BY: Coolest CoolerCoTangent Data ServicesKamrwi6174 [facility] In[facility] ArmorAtrium [facility] [id number] Basophils (Bld) [#/Vol] 0.0 10*3/uL Normal 0.0-0.2 [facility]; [facility] Work Phone: Basophils Auto #/vol (Bld) 0.0 {x10E3/uL} Normal 0.0-0.2 [facility] Work Phone: Basophils/100 WBC (Bld) 0 % Normal 0-3 [facility] Work Phone: Comment on above: PATIENT WAS FASTINGP ERFORMED BY: DataContact [facility] [id number] BY: [employer] [place]6370 Cash Check CardFirstHealth [facility] Hospital [id number] Basophils/100 WBC Auto (Bld) 0 % Normal 0-3 [facility] Work Phone: Eosinophils #/vol (Bld) 0.1 {x10E3/uL} Normal 0.0-0.4 [facility] Work Phone: Comment on above: PATIENT WAS FASTINGP ERFORMED BY: S7 [employer] Yiy7106 [facility] [id number] BY: CIERRA Ellis6370 Khoury GoustoAtrium Health Carolinas Medical Center [id number] Eosinophils (Bld) [#/Vol] 0.1 10*3/uL Normal 0.0-0.4 [facility]; [facility] Work Phone: Eosinophils Auto #/vol (Bld) 0.1 {x10E3/uL} Normal 0.0-0.4 [facility] Work Phone: Eosinophils/100 WBC (Bld) 1 % Normal 0-7 [facility] Work Phone: Comment on above: PATIENT WAS FASTINGP ERFORMED BY: S7 [employer] V[address] [place] [address] [id number] BY: CIERRA Ellis6370 [place] GoustoAtrium Health Carol[facility] Medical Center [id number] Eosinophils/100 WBC Auto (Bld) 1 % Normal 0-7 [facility] Work Phone: Erythrocyte distribution width Auto Ratio (RBC) 13.2 % Normal 11.7-15.0 [facility] Work Phone: Erythrocyte distribution width Ratio (RBC) 13.2 % Normal 11.7-15.0 [facility] Work Phone: Comment on above: PATIENT WAS FASTINGP ERFORMED BY: [employer] Avw0936 [facility] [id number] BY: CIERRA MediamindTierra ShieldsMqzbcw6383 [facility] [id number] Hematocrit Auto Volume Fraction (Bld) 44.2 % Normal 36.0-50.0 Comprehens [facility] Internal Medicine Work Phone: Hematocrit Volume Fraction (Bld) 44.2 % Normal 36.0-50.0 [facility] Work Phone: Comment on above: PATIENT WAS FASTINGP ERFORMED BY: LipoScimontgomery county memorial hospital [address] [place] [address] [id number] BY: CIERRA [facility]6370 [facility] [id number] Hemoglobin mass conc (Bld) 15.1 g/dL Normal 12.5-17.0 [facility] Work Phone: Comment on above: PATIENT WAS FASTINGP ERFORMED BY: LipoScimontgomery county memorial hospital K[address] [place] [address] [id number] BY: CIERRA LabTierra ShieldsVxulmx1241 [facility] [id number] Lymphocytes #/vol (Bld) 2.6 {x10E3/uL} Normal 0.7-4.5 [facility] Work Phone: Comment on above: PATIENT WAS FASTINGP ERFORMED BY: [employer] F[address] [place] [address] [id number] BY: CIERRA LabTierra ShieldsCqxxdz5500 [facility] [id number] Lymphocytes (Bld) [#/Vol] 2.6 10*3/uL Normal 0.7-4.5 [facility]; [facility] Work Phone: Lymphocytes Auto #/vol (Bld) 2.6 {x10E3/uL} Normal 0.7-4.5 [facility] Work Phone: Lymphocytes/100 WBC (Bld) 29 % Normal 14-46 [facility] Work Phone: Comment on above: PATIENT WAS FASTINGP ERFORMED BY: [employer] Rwy8673 [facility] [id number] BY: CIERRA [facility]6370 [facility] [id number] Lymphocytes/100 WBC Auto (Bld) 29 % Normal 14-46 [facility] Work Phone: MCH Auto Entitic mass (RBC) 30.9 pg Normal 27.0-34.0 [facility] Work Phone: MCH Entitic mass (RBC) 30.9 pg Normal 27.0-34.0 [facility] Work Phone: Comment on above: PATIENT WAS FASTINGP ERFORMED BY: [facility] Ked2149 [facility] [id number] BY: CIERRA Ellis6370 [facility] [id number] MCHC Auto mass conc (RBC) 34.2 g/dL Normal 32.0-36.0 [facility] Work Phone: MCHC mass conc (RBC) 34.2 g/dL Normal 32.0-36.0 [facility] Internal Medicine Work Phone: Comment on above: PATIENT WAS FASTINGP ERFORMED BY: [facility] HealthcareoSci[address] [id number] BY: CIERRA [facility] CenterTierra ShieldsMfwcbn6434 [facility] [id number] MCV Auto Entitic volume (RBC) 90 fL Normal 80-98 [facility] Work Phone: MCV Entitic volume (RBC) 90 fL Normal 80-98 [facility] Work Phone: Comment on above: PATIENT WAS FASTINGP ERFORMED BY: [facility] Ein1945 [facility] [id number] BY: CIERRA Ellis6370 [facility] [id number] Monocytes #/vol (Bld) 0.5 {x10E3/uL} Normal 0.1-1.0 [facility] Work Phone: Comment on above: PATIENT WAS FASTINGP ERFORMED BY: [employer] Haz1451 [facility] [id number] BY: CIERRA [facility] CenterTierra Geitks9849 [facility] [id number] Monocytes (Bld) [#/Vol] 0.5 10*3/uL Normal 0.1-1.0 [facility]; [facility] Work Phone: Monocytes Auto #/vol (Bld) 0.5 {x10E3/uL} Normal 0.1-1.0 [facility] Work Phone: Monocytes/100 WBC (Bld) 6 % Normal 4-13 [facility] Work Phone: Comment on above: PATIENT WAS FASTINGP ERFORMED BY: S7 [employer] Gny2169 [facility] [id number] BY: CIERRA [employer] Jwbqxi0610 [facility] [id number] Monocytes/100 WBC Auto (Bld) 6 % Normal 4- [facility] Work Phone: Neutrophils #/vol (Bld) 5.8 {x10E3/uL} Normal 1.8-7.8 [facility] Work Phone: Comment on above: PATIENT WAS FASTINGP ERFORMED BY: S7 LipoSciPolymath Ventures Ohm[address] [place] [address] [id number] BY: CIERRA [facility] MEDICINE70 [facility] [id number] Neutrophils (Bld) [#/Vol] 5.8 10*3/uL Normal 1.8-7.8 [facility]; [facility] Work Phone: Neutrophils Auto #/vol (Bld) 5.8 {x10E3/uL} Normal 1.8-7.8 [facility] Work Phone: Neutrophils/100 WBC (Bld) 64 % Normal 40-74 [facility] Work Phone: Comment on above: PATIENT WAS FASTINGP ERFORMED BY: LipoSciPolymath Ventures Idv8250 [facility] [id number] BY: Begun Vkwrgk8154 [facility] [id number] Neutrophils/100 WBC Auto (Bld) 64 % Normal 40-74 [facility] Work Phone: Platelets #/vol (Bld) 216 {x10E3/uL} Normal 140-415 [facility] Work Phone: Comment on above: PATIENT WAS FASTINGP ERFORMED BY: Serena [employer] Veq3490 [facility] [id number] BY: CIERRA Ellis6370 [facility] [id number] Platelets (Bld) [#/Vol] 216 10*3/uL Normal 140-415 [facility]; [facility] Work Phone: Platelets Auto #/vol (Bld) 216 {x10E3/uL} Normal 140-415 [facility] Work Phone: RBC #/vol (Bld) 4.90 {x10E6/uL} Normal 4.10-5.60 [facility] Work Phone: Comment on above: PATIENT WAS FASTINGP ERFORMED BY: Serena [employer] Dgv3069 [facility] [id number] BY: CIERRA Shieldslin6370 [facility] [id number] RBC (Bld) [#/Vol] 4.90 10*6/uL Normal 4.10-5.60 Compr [facility] Internal Medicine; [facility] Work Phone: RBC Auto #/vol (Bld) 4.90 {x10E6/uL} Normal 4.10-5.60 [facility] Work Phone: WBC #/vol (Bld) 9.0 {x10E3/uL} Normal 4.0-10.5 [facility] Internal Medicine Work Phone: Comment on above: PATIENT WAS FASTINGP ERFORMED BY: [employer] Uqt7575 [facility] [id number] BY: CIERRA [facility] CenterTierra ShieldsXduzwb6892 [facility] [id number] WBC (Bld) [#/Vol] 9.0 10*3/uL Normal 4.0-10.5 Compre [facility] Internal Medicine; [facility] Work Phone: WBC Auto #/vol (Bld) 9.0 {x10E3/uL} Normal 4.0-10.5 [facility] Work Phone: HgA1C , Office ([id number])Ordere d By: Richelle Campos on 10-17-2009 Hemoglobin A1c/Hemoglobin.total mass fraction (Bld) 6.8 % Normal 4.6 - 7.1 Comprehensiv e Internal Medicine Work Phone: Comment on above: done km LIPOPROTEIN, BLD, BY NMR (99 266)Ordered By: Piggery Worker on 10-17-2009 Cholesterol in HDL [Mass/Vol] mg/dL Abnormal [facility] Work Phone: Comment on above: PATIENT WAS FASTINGP ERFORMED BY: S7 [employer] Guo2510 [facility] [id number] BY: CIERRA [employer]Co Nbnlud1804 [facility] [id number] Information: [id number] Cholesterol in HDL mass conc 37 mg/dL Abnormal [facility] Work Phone: Comment on above: PATIENT WAS FASTINGP ERFORMED BY: S7 [employer] Meg3938 [facility] [id number] BY: CIERRA [facility] Vhthkn5116 [facility] [id number] Information: [id number] Cholesterol in LDL mass conc 133 mg/dL Abnormal [facility] Work Phone: Comment on above: .Optimal < 100Above optimal 100 - 129Borderline 130 - 159High 160 - 189Very high > 189. PATIENT WAS FASTINGP ERFORMED BY: S7 [employer] Mmw4196 [facility] [id number] BY: CIERRA [facility] Wioraj2725 [facility] [id number] Information: [id number],[id number] Cholesterol mass conc 194 mg/dL Normal Com prehensive Internal Medicine Work Phone: Comment on above: PATIENT WAS FASTINGP ERFORMED BY: S7 [employer] Rbd4789 [facility] [id number] BY: [facility] Ypqovt9018 [facility] [id number] Information: [id number] Triglyceride mass conc 122 mg/dL Normal [facility] Work Phone: Comment on above: PATIENT WAS FASTINGP ERFORMED BY: S7 [employer] Bua2286 [facility] [id number] BY: [facility] Kebzoq5885 [facility] [id number] Information: [id number] LIPOPROTEIN, BLD, BY NMR (79580) 2.6 nmol/L Normal [facility] Work Phone: Comment on above: Small LDL-P, LDL Par ticle Size, Large HDL-P and Large VLDL- Phave been validated by [employer] but not cleared by [place] FDA;the clinical utility of these test results has not been fully established. PATIENT WAS FASTINGP ERFORMED BY: S7 [employer] Lcp8816 [facility] [id number] BY: [employer]Co Jkibae5250 [facility] [id number] Information: [id number],[id number] LIPOPROTEIN, BLD, BY NMR (34955) [facility] Normal [facility] Work Phone: Comment on above: High Risk: LDL-P <10 00Secondary goal: Small LDL-P <527Moderately High-Risk: LDL-P <1300Secondary goal: Small LDL-P <527 PATIENT WAS FASTINGP ERFORMED BY: S7 [employer] Dlp5150 [facility] [id number] BY: [employer] Rncmcs6905 [facility] [id number] Information: [id number] LIPOPROTEIN, BLD, BY NMR (07011) 21.0 nm Normal [facility] Work Phone: Comment on above: .Small (Pattern B) 1 8.0 - 20.5Large (Pattern A) 20.6 - 23.0. PATIENT WAS FASTINGP ERFORMED BY: S7 [employer] Gdk4925 [facility] [id number] BY: [facility]6370 [facility] [id number] Information: [id number],[id number] LIPOPROTEIN, BLD, BY NMR (59155) < 0.7 Abnormal [facility] Work Phone: Comment on above: PATIENT WAS FASTINGP ERFORMED BY: S7 [employer] Bbt0910 [facility] [id number] BY: [facility] Srxsxt6774 [facility] [id number] Information: [id number],[id number] LIPOPROTEIN, BLD, BY NMR (14004) 640 nmol/L Abnormal [facility] Work Phone: Comment on above: .Low < 117Moderate 1 17 - 526Borderline 527 - 839High > 839. PATIENT WAS FASTINGP ERFORMED BY: S7 [employer] Fuy5050 [facility] [id number] BY: [facility] Ymkoyj5538 [facility] [id number] Information: [id number],[id number] LIPOPROTEIN, BLD, BY NMR (56663) 1592 nmol/L Abnormal [facility] Work Phone: Comment on above: .Optimal < 1000Above optimal 1000 - 1299Borderline 1300 - 1599High 1600 - 2000Very high > 2000. PATIENT WAS FASTINGP ERFORMED BY: S7 [employer] Daz9915 [facility] [id number] BY: [facility] Jncjva3980 [facility] [id number] Information: [id number],[id number] METABOLIC PANEL, COMPREHENSI VE (73350)Ordered By: Piggery Worker on 10-17-2009 Albumin mass conc 4.2 g/dL Normal 3.5-4.8 Compreh ensive Internal Medicine Work Phone: Comment on above: PATIENT WAS FASTINGP ERFORMED BY: [employer] Rxd7837 [facility] [id number] BY: [facility] Vuggot4692 [facility] [id number] Albumin/Globulin mass ratio 1.5 {ratio} Normal 1.1-2.5 [facility] Work Phone: Comment on above: PATIENT WAS FASTINGP ERFORMED BY: [facility] Vpm4312 [facility] [id number] BY: CIERRA [facility] Tzeaxy4856 [address] [facility] [id number] ALP [Catalytic activity/Vol] 136 U/L Normal 25-160 [facility]; [facility] Work Phone: ALP enzyme act/vol 136 [iU]/L Normal 25-160 [facility] Internal Medicine Work Phone: Comment on above: PATIENT WAS FASTINGP ERFORMED BY: [employer] [address] [place] [address] [id number] BY: CIERRA LabCo Qfgurp5525 [facility] [id number] ALT [Catalytic activity/Vol] 15 U/L Normal 0-55 [facility]; [facility] Work Phone: ALT enzyme act/vol 15 [iU]/L Normal 0-55 [facility] Internal Medicine Work Phone: Comment on above: PATIENT WAS FASTINGP ERFORMED BY: [employer] Nsm[address] [place] [address] [id number] BY: [facility] Kdlenf5713 [facility] [id number] AST [Catalytic activity/Vol] 19 U/L Normal 0-40 [facility]; [facility] Work Phone: AST enzyme act/vol 19 [iU]/L Normal 0-40 [facility] Internal Medicine Work Phone: Comment on above: PATIENT WAS FASTINGP ERFORMED BY: [employer] [address] [place] [address] [id number] BY: CIERRA [facility] Xezkpk4343 [address] RoadDublin [place] [id number] Bilirubin mass conc 1.0 mg/dL Normal 0.1-1.2 Compr ehensive Internal Medicine Work Phone: Comment on above: PATIENT WAS FASTINGP ERFORMED BY: S7 [employer] Bhe6241 [facility] [id number] BY: CIERRA [facility] Oarnpr1863 [address] RoadDublin [place] [id number] Calcium mass conc 9.6 mg/dL Normal 8.6-10.2 Compreh ensive Internal Medicine Work Phone: Comment on above: PATIENT WAS FASTINGP ERFORMED BY: S7 [employer] Lwz2492 [facility] [id number] BY: CIERRA [facility] Rpvvfk3372 [address] RoadDublin [place] [id number] Chloride molar conc 102 mmol/L Normal 97-108 Compr ensive Internal Medicine Work Phone: Comment on above: PATIENT WAS FASTINGP ERFORMED BY: S7 [employer] Usa4381 [facility] [id number] BY: CIERRA [facility] Jtwatt0692 [address] RoadDublin [place] [id number] CO2 molar conc 21 mmol/L Normal 20-32 Comprehens shawn Internal Medicine Work Phone: Comment on above: PATIENT WAS FASTINGP ERFORMED BY: S7 [employer] Pbl7571 [facility] [id number] BY: CIERRA [facility] Rxhato1639 [address] RoadDublin [place] [id number] Creatinine mass conc 1.01 mg/dL Normal 0.76-1.27 Comp [facility] Internal [facility] Work Phone: Comment on above: PATIENT WAS FASTINGP ERFORMED BY: S7 [employer] Yhm0817 [facility] [id number] BY: CIERRA [facility] Hcefgw4155 [address] RoadDublin [place] [id number] GFR/1.73 sq M predicted among blacks MDRD [...] PATIENT WAS FASTINGP ERFORMED BY: S7 [employer] Fqc3056 [facility] ClinicsvdJeff[facility] Hospital [id number] BY: CIERRA [facility] Sqxtej3966 [facility] [id number] GFR/1.73 sq M.predicted MDRD (S/P/Bld) [Vol rate/Area] mL/min/{1.73_m2} Normal [facility] Work Phone: Comment on above: PATIENT WAS FASTINGP ERFORMED BY: S7 [employer] Drh0050 [facility] [id number] BY: CIERRA LabTierra Ellis6370 [facility] [id number] GFR/1.73 sq M.predicted MDRD vol rate/area mL/min/{1.73_m2} Normal [facility] Work Phone: Comment on above: PATIENT WAS FASTINGP ERFORMED BY: S7 [employer] Zvb3431 [facility] [id number] BY: CIERRA [facility] Taptax1767 [facility] [id number] Globulin Calculated mass conc (S) 2.8 g/dL Normal 1.5-4.5 [facility] Work Phone: Globulin mass conc (S) 2.8 g/dL Normal 1.5-4.5 [facility] Work Phone: Comment on above: PATIENT WAS FASTINGP ERFORMED BY: S7 [employer] Xhq1488 [facility] [id number] BY: CIERRA [facility] Iztoju6213 [address] RoadDublin [place] [id number] Glucose mass conc 104 mg/dL Abnormal 65-99 Compreh ensive Internal Medicine Work Phone: Comment on above: PATIENT WAS FASTINGP ERFORMED BY: S7 [employer] Sdt4776 [facility] [id number] BY: CIERRA [facility] Vemqrq5087 [address] RoadDublin [place] [id number] Potassium molar conc 5.1 mmol/L Normal 3.5-5.2 Comp rehensive Internal Medicine Work Phone: Comment on above: PATIENT WAS FASTINGP ERFORMED BY: S7 [employer] Npn8692 [facility] [id number] BY: CIERRA [facility] Rygijo4872 [address] RoadDublin [place] [id number] Protein mass conc 7.0 g/dL Normal 6.0-8.5 Compreh ensive Internal Medicine Work Phone: Comment on above: PATIENT WAS FASTINGP ERFORMED BY: S7 [employer] Sul3414 [facility] [id number] BY: CIERRA LabCocheri ShieldsZotnyn3276 [address] RoadDublin [place] [id number] Sodium molar conc 138 mmol/L Normal 135-145 Compreh ensive Internal Medicine Work Phone: Comment on above: PATIENT WAS FASTINGP ERFORMED BY: S7 [employer] Zvj1104 [facility] [id number] BY: CIERRA [facility] Zrjrfz2402 [address] RoadDublin [place] [id number] Urea nitrogen mass conc 13 mg/dL Normal 5-26 [facility] Work Phone: Comment on above: PATIENT WAS FASTINGP ERFORMED BY: S7 [employer] Mhl8523 [facility] [id number] BY: CIERRA [facility] Vzjdgv5090 [address] RoadDublin [place] [id number] Urea nitrogen/Creatinine mass ratio 13 mg/mg Normal 8-27 [facility] Work Phone: Comment on above: PATIENT WAS FASTINGP ERFORMED BY: S7 [employer] Ayt2746 [facility] [id number] BY: CIERRA Shieldslin6370 [address] RoadDublin [place] [id number] MICROALBUMINOrdered By: Syst em Wharf Operator on 10-17-2009 Albumin DL <= 20 mg/L mass conc (U) 6.3 ug/mL Normal 0.0-17.0 [facility] Work Phone: Comment on above: PATIENT WAS FASTINGP ERFORMED BY: S7 [employer] Luk5622 [facility] [id number] BY: CIERRA LabTierra ShieldsQiryyb5623 [address] RoadDublin [place] [id number] Albumin/Creatinine mass ratio (U) 3.7 {mg/g_creat} Normal 0.0-30.0 [facility] Work Phone: Comment on above: PATIENT WAS FASTINGP ERFORMED BY: S7 [employer] Mag9608 [facility] [id number] BY: CIERRA Shieldslin6370 [address] RoadDublin [place] [id number] Creatinine mass conc (U) 168.8 mg/dL Normal 22.0-328.0 [facility] Work Phone: Comment on above: PATIENT WAS FASTINGP ERFORMED BY: S7 [employer] Nyw3121 [facility] [id number] BY: CIERRA LabTierra ShieldsPnmgio9331 [address] RoadDublin [place] [id number] Microscopic ExaminationOrder ed By: Piggery Worker on 10-17-2009 Bacteria LM.HPF #/area (Urine sed) Few Normal [facility] Work Phone: Comment on above: PATIENT WAS FASTINGP ERFORMED BY: S7 [employer] Tez8497 [facility] [id number] BY: CIERRA LabTierra Rqoxsf7583 [address] RoadDublin [place] [id number] Casts LM Nom (Urine sed) Hyaline casts Normal [facility] Work Phone: Comment on above: PATIENT WAS FASTINGP ERFORMED BY: S7 [employer] Iyg4464 [facility] [id number] BY: CB [facility] Wvrujh2892 [address] RoadDublin [place] [id number] Casts LM Ql (Urine sed) Present Abnormal [facility] Work Phone: Comment on above: PATIENT WAS FASTINGP ERFORMED BY: S7 [employer] Pwv9240 [facility] [id number] BY: CIERRA [facility] Bhxitb2154 [address] RoadDublin [place] [id number] Epithelial cells LM.HPF #/area (Urine sed) None seen Normal 0 - 10 [facility] Work Phone: Comment on above: PATIENT WAS FASTINGP ERFORMED BY: S7 [employer] Imo7180 [facility] [id number] BY: CIERRA [facility] Uzjlms9700 [address] RoadDuin [place] [id number] Mucus LM Ql (Urine sed) Present Normal [facility] Work Phone: Mucus Ql (Urine sed) Present Normal Comp rehensive Internal Medicine Work Phone: Comment on above: PATIENT WAS FASTINGP ERFORMED BY: S7 [employer] Srn5687 [facility] [id number] BY: CB [facility] Icwqhz5895 [address] RoadDublin [place] [id number] RBC LM.HPF #/area (Urine sed) 0-3 Normal 0 - 3 [facility] Work Phone: Comment on above: PATIENT WAS FASTINGP ERFORMED BY: S7 [employer] Mqa1948 [facility] [id number] BY: CB [facility] Veszth2990 [address] RoadDublin [place] [id number] WBC LM.HPF #/area (Urine sed) 0-5 Normal 0 - 5 [facility] Work Phone: Comment on above: PATIENT WAS FASTINGP ERFORMED BY: [facility]Sc[facility] Uqa7825 [facility] [id number] BY: [facility] Mkeiio6485 [facility] [id number] PSA (PROSTATE SPECIFIC ANTIG EN) (V76.44)Ordered By: Piggery Worker on 10-17-2009 Prostate specific Ag mass conc 4.5 ng/mL Abnormal 0.0-4.0 [facility] Work Phone: Comment on above: Electrolytic Ozone ECLIA methodol ogy..According to the [employer] [employer], Serum PSA shoulddecrease and remain [...] disease. PATIENT WAS FASTINGP ERFORMED BY: S7 LipoSciPolymath Ventures Vtl3886 [facility] [id number] BY: CIERRA Begun Gprzen0126 [facility] [id number] TSH (36480)Ordered By: ScratchJre [address] Development Wharf Operator on 10-17-2009 Thyrotropin Qn 1.260 {uIU/mL} Normal 0.450-4.50 0 [facility] Work Phone: Comment on above: Please note refere nce interval change PATIENT WAS FASTINGP ERFORMED BY: S7 [employer] Hkg5029 [facility] [id number] BY: [facility] Lsarvz4313 [facility] [id number] URINALYSIS, W/ MICRO (98502) Ordered By: Piggery Worker on 10-17-2009 Appearance Nom (U) Clear Normal Compre [facility] Internal Medicine Work Phone: Comment on above: PATIENT WAS FASTINGP ERFORMED BY: [facility] Cox4321 [facility] [id number] BY: CIERRA [facility] Vdkzsp2949 [address] RoadDublin [place] [id number] Bilirubin Ql (U) Negative Normal Comprehe nsive Internal Medicine Work Phone: Comment on above: PATIENT WAS FASTINGP ERFORMED BY: [employer] But6576 [facility] [id number] BY: CIERRA [facility] Opgeit4830 [address] RoadDublin [place] [id number] Bilirubin Ql (U) Negative Normal Comprehe nsive Internal Medicine; [facility] Work Phone: Color Nom (U) Yellow Normal Comprehensi ve Internal Medicine Work Phone: Comment on above: PATIENT WAS FASTINGP ERFORMED BY: [employer] Bnx4809 [facility] [id number] BY: CIERRA [facility] Ckvlim3314 [address] RoadDublin [place] [id number] Glucose Ql (U) Negative Normal Comprehens shawn Internal Medicine Work Phone: Comment on above: PATIENT WAS FASTINGP ERFORMED BY: [employer] Eis5465 [facility] [id number] BY: CIERRA [facility] Qseghm9390 [address] RoadDuin [place] [id number] Glucose Ql (U) Negative Normal Comprehens shawn Internal Medicine; [facility] Work Phone: Hemoglobin Ql (U) Negative Normal Compreh ensive Internal Medicine Work Phone: Comment on above: PATIENT WAS FASTINGP ERFORMED BY: [employer] Xkx4358 [facility] [id number] BY: CIERRA [facility] Txjitv7322 [address] RoadDublin [place] [id number] Hemoglobin Ql (U) Negative Normal Compreh ensive Internal Medicine; [facility] Work Phone: Hemoglobin Test strip Ql (U) Negative Normal [facility] Work Phone: Ketones Ql (U) Negative Normal Comprehens shawn Internal Medicine Work Phone: Comment on above: PATIENT WAS FASTINGP ERFORMED BY: S7 [employer] Avp4814 [facility] [id number] BY: CIERRA [facility] Shbszw6126 [address] RoadDublin [place] [id number] Ketones Ql (U) Negative Normal Comprehens shawn Internal Medicine; [facility] Work Phone: Leukocyte esterase Test strip Ql (U) Negative Normal [facility] Work Phone: Comment on above: PATIENT WAS FASTINGP ERFORMED BY: S7 [employer] Xen8392 [facility] [id number] BY: CIERRA LabTierra ShieldsBuefgq6640 [address] RoadDublin [place] [id number] Leukocyte esterase Test strip Ql (U) Negative Normal [facility]; [facility] Work Phone: Microscopic observation LM Nom (Urine sed) See below: Normal [facility] Work Phone: Comment on above: PATIENT WAS FASTINGP ERFORMED BY: S7 [employer] Qne5163 [facility] [id number] BY: CIERRA LabTierra ShieldsYrvjtq4446 Khoury RoadDublin [place] [id number] Microscopic observation LM Nom (Urine sed) MICRON Normal [facility] Work Phone: Comment on above: Microscopic follows if indicated. PATIENT WAS FASTINGP ERFORMED BY: S7 [employer] Gcs3016 [facility] [id number] BY: CIERRA [facility] Oumirh2494 Khoury RoadDublin [place] [id number] Nitrite Ql (U) Negative Normal Comprehens shawn Internal Medicine Work Phone: Comment on above: PATIENT WAS FASTINGP ERFORMED BY: S7 [employer] Hbi3692 [facility] [id number] BY: CIERRA [facility] Ynkfnq4448 Khoury RoadDublin [place] [id number] Nitrite Ql (U) Negative Normal Comprehens [facility]; [facility] Work Phone: Nitrite Test strip Ql (U) Negative Normal [facility] Work Phone: pH (U) 7.0 [pH] Normal 5.0-7.5 [facility] Work Phone: Comment on above: PATIENT WAS FASTINGP ERFORMED BY: S7 [facility] Ywm1832 [facility] [id number] BY: CIERRA Ellis6370 [facility] [id number] pH Test strip (U) 7.0 [pH] Normal 5.0-7.5 Compreh ensive Internal Medicine Work Phone: Protein Ql (U) Negative Normal Comprehens shawn [facility] Work Phone: Comment on above: PATIENT WAS FASTINGP ERFORMED BY: [facility] Azt[address] [place] [address] [id number] BY: CIERRA Ellis6370 [facility] [id number] Protein Ql (U) Negative Normal Comprehens shawn [facility]; [facility] Work Phone: Protein Test strip Ql (U) Negative Normal [facility] Work Phone: Specific gravity Relative Density (U) 1.019 1 Normal 1.005-1.03 0 [facility] Work Phone: Comment on above: PATIENT WAS FASTINGP ERFORMED BY: [facility]oSc[facility]ont[facility] [address] [place] [address] [id number] BY: CIERRA LabCore Essence Orthopaedicscheri ShieldsOwxvzh9441 [facility] [id number] Urobilinogen (U) [Mass/Vol] 1.0 mg/dL Normal 0.0-1.9 [facility]; [facility] Work Phone: Urobilinogen Test strip mass conc (U) 1.0 mg/dL Normal 0.0-1.9 Comprehensiv e Internal Medicine Work Phone: Comment on above: PATIENT WAS FASTINGP ERFORMED BY: [facility]oSc[facility] [address] [place] [address] [id number] BY: CIERRA LezamaCore Essence Orthopaedicscheri [id number] Cash Check CardFirstHealth [facility] [id number] Blood Glucose , Office (7996 2)Ordered By: Richelle Campos on 07-18-2009 Glucose Glucometer molar conc (BldC) 176 1 Normal [facility] Work Phone: Comment on above: DONE KM HgA1C , Office (03972)Ordere d By: Richelle Campos on 07-18-2009 Hemoglobin A1c/Hemoglobin.total mass fraction (Bld) 5.9 % Normal 4.6 - 7.1 Comprehensiv e Internal Medicine Work Phone: Comment on above: DONE KM LIPID PANEL ([id number])Ordered B y: Isabelle Patiño on 07-08-2009 Cholesterol in HDL mass conc 33 mg/dL Abnormal [facility] Work Phone: Comment on above: According to ATP-III Guidelines, HDL-C >59 mg/dL is considered anegative risk factor for CHD. do in 3 mo; PATIENT WAS FASTINGClinical Information: [id number] PERFORMED BY: CIERRA [employer]6370 Cash Check CardFirstHealth [facility] Hospital [id number] Cholesterol in LDL mass conc 142 mg/dL Abnormal 0-99 [facility] Work Phone: Comment on above: do in 3 mo; PATIENT WAS FASTINGClinical Information: [id number] PERFORMED BY: CIERRA [employer]6370 Cash Check CardPresidio [place] [id number] Cholesterol in LDL/Cholesterol in HDL mass ratio 4.3 {ratio_units} Abnormal 0.0-3.6 [facility] Work Phone: Comment on above: do in 3 mo; PATIENT WAS FASTINGClinical Information: [id number] PERFORMED BY: CIERRA [employer]70 Cash Check CardFirstHealth [facility] Hospital [id number] Cholesterol in VLDL mass conc 18 mg/dL Normal 5-40 [facility] Work Phone: Comment on above: do in 3 mo; PATIENT WAS FASTINGClinical Information: [id number] PERFORMED BY: CIERRA [facility] [employer]70 [facility] [id number] Cholesterol mass conc 193 mg/dL Normal 100-199 Com prehensive Internal Medicine Work Phone: Comment on above: do in 3 mo; PATIENT WAS FASTINGClinical Information: [id number] PERFORMED BY: [facility] Vwoagc6882 [facility] [id number] Triglyceride mass conc 92 mg/dL Normal 0-149 [facility] Work Phone: Comment on above: do in 3 mo; PATIENT WAS FASTINGClinical Information: [id number] PERFORMED BY: [employer]Co Ywjfhc9219 [facility] [id number] Blood Glucose , Office (9600 2)Ordered By: Richelle Campos on 04-17-2009 Glucose Glucometer molar conc (BldC) 152 1 Normal [facility] Work Phone: Comment on above: done latasha HgA1C , Office (42273)Ordere d By: Richelle Campos on 04-17-2009 Hemoglobin A1c/Hemoglobin.total mass fraction (Bld) 6.3 % Normal 4.6 - 7.1 Comprehensiv e Internal Medicine Work Phone: Comment on above: done latasha LIPID PANEL (14275)Ordered B y: Isabelle Patiño on 01-31-2009 Cholesterol in HDL mass conc 37 mg/dL Abnormal [facility] Work Phone: Comment on above: According to ATP-III Guidelines, HDL-C >59 mg/dL is considered anegative risk factor for CHD. od in 6 mo; PATIENT WAS FASTINGClinical Information: ADD DRAW FEE [id number] ADD [id number] PERFORMED BY: [facility] Ysuaxk2321 [facility] [id number] Cholesterol in LDL mass conc 132 mg/dL Abnormal 0-99 [facility] Work Phone: Comment on above: od in 6 mo; PATIENT WAS FASTINGClinical Information: ADD DRAW FEE [id number] ADD [id number] PERFORMED BY: [facility] Ermxuy6038 [facility] [id number] Cholesterol in LDL/Cholesterol in HDL mass ratio SPRCS Normal [facility] Work Phone: Comment on above: If initial LDL-kristofer sterol result is >100 mg/dL, assess forrisk factors. od in 6 mo; PATIENT WAS FASTINGClinical Information: ADD DRAW FEE [id number] ADD [id number] PERFORMED BY: [employer]70 [facility] [id number] Cholesterol in LDL/Cholesterol in HDL mass ratio 3.6 {ratio_units} Normal 0.0-3.6 [facility] Work Phone: Comment on above: od in 6 mo; PATIENT WAS FASTINGClinical Information: ADD DRAW FEE [id number] ADD [id number] PERFORMED BY: [employer]70 [place] [facility]At[facility] [id number] Cholesterol in VLDL mass conc 24 mg/dL Normal 5-40 [facility] Work Phone: Comment on above: od in 6 mo; PATIENT WAS FASTINGClinical Information: ADD DRAW FEE [id number] ADD [id number] PERFORMED BY: [employer]70 [facility] [id number] Cholesterol mass conc 193 mg/dL Normal 100-199 [facility] prehensive Internal Medicine Work Phone: Comment on above: od in 6 mo; PATIENT WAS FASTINGClinical Information: ADD DRAW FEE [id number] ADD [id number] PERFORMED BY: [employer]70 [facility] [id number] Triglyceride mass conc 122 mg/dL Normal 0-149 [facility] Work Phone: Comment on above: od in 6 mo; PATIENT WAS FASTINGClinical Information: ADD DRAW FEE [id number] ADD [id number] PERFORMED BY: ATEME Jaxijx1201 [facility] [id number] CHEST, PA AND LATERAL (MT)Or dered By: Piggery Worker on 10-01-2008 CHEST, PA AND LATERAL (MT) See Note Normal [facility] Work Phone: Comment on above: Exam Number: [id number] PA AND LATERAL CHEST INDICATIONCOPD. COMPARISONNone. [...] LANDEN NAVARRO M.D. Blood Glucose , Office (6526 2)Ordered By: Richelle Campos on 09-11-2008 Glucose Glucometer molar conc (BldC) 203 1 Normal [facility] Work Phone: Comment on above: done km HgA1C , Office (03693)Ordere d By: Richelle Campos on 09-11-2008 Hemoglobin A1c/Hemoglobin.total mass fraction (Bld) 6.0 % Normal 4.6 - 7.1 Comprehensiv e Internal Medicine Work Phone: Comment on above: done LIPID PANEL (53839)Ordered B y: Isabelle Patiño on 09-03-2008 Cholesterol in HDL mass conc 35 mg/dL Abnormal [facility] Work Phone: Comment on above: According to ATP-III Guidelines, HDL-C >59 mg/dL is considered anegative risk factor for CHD. PATIENT WAS FASTINGC linical Information: ADD DRAW FEE 437325 ADD J 47430 PERFORMED BY: [employer] [place] [id number] Cholesterol in LDL mass conc 140 mg/dL Abnormal 0-99 [facility] Work Phone: Comment on above: PATIENT WAS FASTINGC linical Information: ADD DRAW FEE 456884 ADD J 46447 PERFORMED BY: [employer] [place]6370 [place] [id number] Cholesterol in LDL/Cholesterol in HDL mass ratio 4.0 {ratio_units} Abnormal 0.0-3.6 [facility] Work Phone: Comment on above: PATIENT WAS FASTINGC linical Information: ADD DRAW FEE [id number] ADD J 10732 PERFORMED BY: UYA100[facility] [id number] Cholesterol in LDL/Cholesterol in HDL mass ratio SPRCS Normal [facility] Work Phone: Comment on above: If initial LDL-kristofer sterol result is >100 mg/dL, assess forrisk factors. PATIENT WAS FASTINGC linical Information: ADD DRAW FEE [id number] ADD J [id number] PERFORMED BY: [employer] [place]6370 [facility] Invisible ArmorAtrium [facility] [id number] Cholesterol in VLDL mass conc 24 mg/dL Normal 5-40 [facility] Work Phone: Comment on above: PATIENT WAS FASTINGC linical Information: ADD DRAW FEE [id number] ADD J [id number] PERFORMED BY: [employer] [place]6370 Cash Check CardFirstHealth [facility] Hospital [id number] Cholesterol mass conc 199 mg/dL Normal 100-199 [facility] prehensive Internal Medicine Work Phone: Comment on above: PATIENT WAS FASTINGC linical Information: ADD DRAW FEE [id number] ADD J [id number] PERFORMED BY: [employer] [place]6370 [address] DiagnovusFirstHealth [facility] Hospital [id number] Triglyceride mass conc 118 mg/dL Normal 0-149 [facility] Work Phone: Comment on above: PATIENT WAS FASTINGC linical Information: ADD DRAW FEE 514140 ADD J 12430 PERFORMED BY: [employer] [place]6370 [address] GoustoAtrium Health Carolinas [facility] Center [id number] Blood Glucose , Office (4596 2)Ordered By: Richelle Campos on 06-14-2008 Glucose Glucometer molar conc (BldC) 114 1 Normal [facility] Work Phone: Comment on above: done latasha HgA1C , Office (18986)Ordere d By: Richelle Campos on 06-14-2008 Hemoglobin A1c/Hemoglobin.total mass fraction (Bld) 6.0 % Normal 4.6 - 7.1 Comprehensiv e Internal Medicine Work Phone: Comment on above: done latasha PSA (PROSTATE SPECIFIC ANTIG EN) (V76.44)Ordered By: Isabelle Patiño on 06-14-2008 Prostate specific Ag mass conc 3.2 ng/mL Normal 0.0-4.0 [facility] Work Phone: Comment on above: Raji ECLIA methodol ogy. .According to the [place] [employer], PSA should beundetectable after radical prostatectomy. A PSA of less than0.5 ng/mL (or undetectable) is not likely to be associated withdisease recurrence within five years of treatment.Values obtained with different assay methods or kits cannot be usedinterchangeably. Results cannot be interpreted as absolute evidenceof the presence or absence of malignant disease. PATIENT NOT FASTINGC linical Information: ADD DRAW FEE [id number] ADD J [id number] PERFORMED BY: LabCoInspira Medical Center VinelandFlbqeq5405 [facility] [id number] CBCD,SMEAR DIFFOrdered By: S ystem Wharf Operator on 06-07-2008 Eosinophils/100 WBC (Bld) 4 % Normal 0-5 [facility] Work Phone: Eosinophils/100 WBC Auto (Bld) 4 % Normal 0-5 [facility] Work Phone: Erythrocyte distribution width Auto Ratio (RBC) 13.7 % Normal 11.6-14.6 [facility] Work Phone: Erythrocyte distribution width Ratio (RBC) 13.7 % Normal 11.6-14.6 [facility] Work Phone: Hematocrit Auto Volume Fraction (Bld) 42.5 % Normal 40-54 [facility] Work Phone: Hematocrit Volume Fraction (Bld) 42.5 % Normal 40-54 [facility] Work Phone: Hemoglobin mass conc (Bld) 14.7 g/dL Normal 14.0-18.0 [facility] Work Phone: MCH Auto Entitic mass (RBC) 29.8 pg Normal 27.0-32.0 [facility] Work Phone: MCH Entitic mass (RBC) 29.8 pg Normal 27.0-32.0 [facility] Work Phone: MCHC Auto mass conc (RBC) 34.6 g/dL Normal 32-36 [facility] Work Phone: MCHC mass conc (RBC) 34.6 g/dL Normal 32-36 Comp [facility] Internal Medicine Work Phone: MCV Auto Entitic volume (RBC) 86.3 fL Normal 80-94 [facility] Work Phone: MCV Entitic volume (RBC) 86.3 fL Normal 80-94 [facility] Work Phone: Platelets #/vol (Bld) 191 10*3/uL Normal 150-450 [facility] Internal Medicine Work Phone: Platelets Auto #/vol (Bld) 191 10*3/uL Normal 150-450 [facility] Work Phone: RBC #/vol (Bld) 4.93 {M/mm3} Normal 4.6-6.2 Compreh [facility] Internal Medicine Work Phone: RBC Auto #/vol (Bld) 4.93 {M/mm3} Normal 4.6-6.2 [facility] Internal Medicine Work Phone: WBC #/vol (Bld) 8.4 10*3/uL Normal 4.4-11.[address] [facility] Work Phone: WBC Auto #/vol (Bld) 8.4 10*3/uL Normal 4.4-11.0 [facility] Internal Medicine Work Phone: CBCD,SMEAR DIFF 1 % Normal 0-5 [facility] Internal Medicine Work Phone: CBCD,SMEAR DIFF 100 1 Normal [facility] Internal Medicine Work Phone: Comment on above: AMENDED REPORT 0 06/09/08 1432 CELLS COUNTED previously reported as: 124 CBCD,SMEAR DIFF 28 % Normal 19-41 [facility] Internal Medicine Work Phone: CBCD,SMEAR DIFF 10 % Normal 0-10 [facility] Internal Medicine Work Phone: CBCD,SMEAR DIFF SeeNote Normal [facility] Internal Medicine Work Phone: Comment on above: Result: ADEQUATE Result: NORM C+C CBCD,SMEAR DIFF 57 % Normal 47-70 [facility] Internal Medicine Work Phone: COMP METABOLICOrdered By: Markos stem Wharf Operator on 06-07-2008 Albumin mass conc 3.5 g/dL Normal 3.4-5.0 Compreh ensive Internal Medicine Work Phone: Albumin/Globulin mass ratio 1.0 {RATIO} Normal 0.9-2.4 [facility] Work Phone: ALP enzyme act/vol 135 U/L Normal 50-136 [facility] Work Phone: ALT enzyme act/vol 33 U/L Normal 30-65 [facility] Internal Medicine Work Phone: Anion gap 3 molar conc 7 mmol/L Normal 5-15 [facility] Work Phone: Anion gap molar conc 7 mmol/L Normal 5-15 Comp rehensive Internal Medicine Work Phone: AST enzyme act/vol 19 U/L Normal 15-37 [facility] Internal Medicine Work Phone: Bilirubin mass conc 0.85 mg/dL Normal 0.00-1.00 Compr ensive Internal Medicine Work Phone: Calcium mass conc 8.6 mg/dL Normal 8.5-10.1 Compreh ensive Internal Medicine Work Phone: Chloride molar conc 107 mmol/L Normal 98-107 Compr ensive Internal Medicine Work Phone: CO2 molar conc 26.9 mmol/L Normal 21.0-32.0 Comprehen [facility] Internal Medicine Work Phone: Creatinine mass conc 0.9 mg/dL Normal 0.8-1.3 Comp [facility] centerens[facility] Internal [facility] Work Phone: Globulin Calculated mass conc (S) 3.4 g/dL Normal 2.7-4.2 [facility] Work Phone: Globulin mass conc (S) 3.4 g/dL Normal 2.7-4.2 [facility] Work Phone: Glucose mass conc [...] Work Phone: BRAIN/HEAD WITHOUT CONTRASTO rdered By: Piggery Worker on 03-19-2008 BRAIN/HEAD WITHOUT CONTRAST See Note Normal [facility] Work Phone: Comment on above: Exam Number: [id number] CT SCAN OF BRAIN HISTORYSyncope. Consecutive [...] YESSICA MUNOZ M.D. Blood Glucose , Office (8545 2)Ordered By: Ricehlle Campos on 03-14-2008 Glucose Glucometer molar conc (BldC) 120 1 Normal [facility] Work Phone: Comment on above: done latasha HgA1C , Office (39868)Ordere d By: Richelle Campos on 03-14-2008 Hemoglobin A1c/Hemoglobin.total mass fraction (Bld) 6.3 % Normal 4.6 - 7.1 Comprehensiv e Internal Medicine Work Phone: Comment on above: done latasha Blood Glucose , Office (4201 2)Ordered By: Richelle Campos on 12-06-2007 Glucose Glucometer molar conc (BldC) 125 1 Normal [facility] Work Phone: Comment on above: done latasha HgA1C , Office (77621)Ordere d By: Richelle Campos on 12-06-2007 Hemoglobin [...] = 500 mg/dL Blood Glucose , Office (3696 2)Ordered By: Richelle Campos on 08-28-2007 Glucose Glucometer molar conc (BldC) 102 1 Normal [facility] Work Phone: Comment on above: done km HgA1C , Office (08315)Ordere d By: Richelle Campos on 08-28-2007 Hemoglobin [...] = 500 mg/dL Blood Glucose , Office (4696 2)Ordered By: Dianna Sagastume on 04-24-2007 Glucose Glucometer molar conc (BldC) 144 1 Normal [facility] Work Phone: Blood Glucose , Office (8296 2)Ordered By: Olga He on 04-12-2007 Glucose Glucometer molar conc (BldC) 102 1 Normal [facility] Work Phone: CBCD,SMEAR DIFFOrdered By: Izabella ystem Wharf Operator on 04-12-2007 Eosinophils/100 WBC (Bld) 1 % [...] Fraction (Bld) 43.3 % Normal 40-54 Comprehens [facility] Internal Medicine Work Phone: Hematocrit Volume Fraction [...] Entitic volume (RBC) 88.1 fL Normal 80-94 [facility] Work Phone: MCV Entitic volume (RBC) 88.1 fL Normal 80-94 [facility] Work Phone: Platelets #/vol (Bld) 209 10*3/uL Normal 150-[address] louise[facility] Internal Medicine Work Phone: Platelets Auto #/vol (Bld) 209 10*3/uL Normal 150-450 [facility] Work Phone: RBC #/vol (Bld) 4.91 {M/mm3} Normal 4.6-6.2 Compreh [facility] Internal Medicine Work Phone: RBC Auto #/vol (Bld) 4.91 {M/mm3} Normal 4.6-6.2 [facility] Internal Medicine Work Phone: WBC #/vol (Bld) 9.4 10*3/uL Normal 4.4-11.0 Comprehe [facility] Internal Medicine Work Phone: WBC Auto #/vol (Bld) 9.4 10*3/uL Normal 4.4-11.0 Com [facility] Internal Medicine Work Phone: CBCD,SMEAR DIFF 100 1 Normal [facility] Internal [facility] Work Phone: CBCD,SMEAR DIFF 22 % Normal 19-41 [facility] Internal [facility] Work Phone: CBCD,SMEAR DIFF 7 % Normal 0-10 [facility] Internal [facility] Work Phone: CBCD,SMEAR DIFF SeeNote Normal [facility] Internal Medicine Work Phone: Comment on above: Result: ADEQUATE Result: NORM C&C Result: NEGATIVE CBCD,SMEAR DIFF 70 % Normal 47-70 [facility] Internal Medicine Work Phone: COMP METABOLICOrdered By: Markos stem Wharf Operator on 04-12-2007 Albumin mass conc 3.8 g/dL Normal 3.4-5.0 [facility] Internal Medicine Work Phone: Albumin/Globulin mass ratio 1.1 {RATIO} Normal 0.9-2.4 [facility] Work Phone: ALP enzyme act/vol 131 U/L Normal 50-136 [facility] Internal Medicine Work Phone: ALT enzyme act/vol 35 [iU]/L Normal 30-65 [facility] Internal Medicine Work Phone: Anion gap 3 molar conc 9 mmol/L Normal 5-15 [facility] Work Phone: Anion gap molar conc 9 mmol/L Normal 5-15 [facility] Internal Medicine Work Phone: AST enzyme act/vol 19 U/L Normal 15-37 [facility] Internal Medicine Work Phone: Bilirubin mass conc 1.03 mg/dL Abnormal 0.00-1.00 [facility] Internal Medicine Work Phone: Calcium mass conc 8.4 mg/dL Abnormal 8.5-10.1 [facility] Internal Medicine Work Phone: Chloride molar conc 105 mmol/L Normal 98-107 [facility] Internal Medicine Work Phone: CO2 molar conc 26.9 mmol/L Normal 22.0-29.0 [facility] Internal Medicine Work Phone: Creatinine mass conc 1.0 mg/dL Normal 0.8-1.3 [facility] Internal Medicine Work Phone: Globulin Calculated mass conc (S) 3.4 g/dL Normal 2.3-3.5 [facility] Work Phone: Globulin mass conc (S) 3.4 g/dL Normal 2.3-3.5 [facility] Work Phone: Glucose mass conc 99 mg/dL Normal 70-110 [facility] Internal Medicine Work Phone: Potassium molar conc 4.0 mmol/L Normal 3.5-5.1 [facility] Internal Medicine Work Phone: Protein mass conc 7.2 g/dL Normal 6.4-8.2 Compreh ensive Internal Medicine Work Phone: Sodium molar conc 141 mmol/L Normal 136-145 Compreh ensive Internal Medicine Work Phone: Urea nitrogen mass conc 12 mg/dL Normal 7-18 [facility] Work Phone: Urea nitrogen/Creatinine mass ratio 12.0 {RATIO} Normal 10-20 [facility] Work Phone: HgA1C , Office ([phone])Ordere d By: Olga He on 04-12-2007 Hemoglobin [...] Internal Medicine Work Phone: PSA,TOT SCREENOrdered By: [employer] stem Wharf Operator on 04-12-2007 Prostate specific Ag mass conc 2.96 ng/mL Normal 0.00-4.00 [facility] Work Phone: Comment on above: This test was perfor med using the TPSA method for theJason's House chemistry system.Values obtained with different assay methods cannot be usedinterchangably.When changing PSA assays in the course of monitoring apatient, additionaly sequential testing should be carriedout to confirm baseline values. ROUTINE UAOrdered By: Piggery Worker on 04-12-2007 ROUTINE UA CLEAR Normal [facility] Work Phone: ROUTINE UA YELLOW Normal [facility] Work Phone: ROUTINE UA 6.0 1 Normal 5.0-8.0 [facility] Work Phone: ROUTINE UA 1.015 1 Normal 1.002-1.03 0 [facility] Work Phone: ROUTINE UA 0.2 EU/dl Normal 0.2 - 1.0 [facility] Work Phone: URINALYSIS W/O MICRO ([id number]) Ordered By: Olga He on 04-12-2007 Appearance [...] [degF] Dr. Isabelle Patiño DO Work Phone: [facility] 05-29-2025 13:14-0400 Diastolic blood pressure 82 mm[Hg] Dr. Isabelle Patiño DO Work Phone: [facility] 05-29-2025 13:14-0400 Heart rate 66 /min Dr. Isabelle Patiño DO Work Phone: [facility] 05-29-2025 13:14-0400 Respiratory rate 15 /min Dr. Isabelle Patiño DO Work Phone: [facility] 05-29-2025 13:14-0400 SaO2% (BldA) [Mass fraction] 96 % Dr. Isabelle Patiño DO Work Phone: [facility] 05-29-2025 13:14-0400 Systolic blood pressure 148 mm[Hg] Dr. Isabelle Patiño DO Work Phone: [facility] 07-20-2023 12:13-0400 Body height 165.1 cm [facility]; [facility] Work Phone: 07-20-2023 12:13-0400 Body mass index (BMI) [Ratio] 26.31 kg/m2 [facility]; [facility] Work Phone: 07-20-2023 12:13-0400 Body surface area Derived from formula 1.79 m2 [facility]; Comprehensive Internal Medicine Work Phone: 07-20-2023 12:13-0400 Body temperature 96.4 [degF] [facility]; [facility] Work Phone: 07-20-2023 12:13-0400 Body weight 71.73 kg [facility]; [facility] Work Phone: 07-20-2023 12:13-0400 Diastolic blood pressure 68 mm[Hg] [facility]; [facility] Work Phone: 07-20-2023 12:13-0400 Heart rate 76 /min [facility]; [facility] Work Phone: 07-20-2023 12:13-0400 Respiratory rate 16 /min [facility]; [facility] Work Phone: 07-20-2023 12:13-0400 SaO2% (BldA) [Mass fraction] 97 % [facility]; [facility] Work Phone: 07-20-2023 12:13-0400 Systolic blood pressure 116 mm[Hg] [facility]; [facility] Work Phone: 06-03-2023 11:57-0400 Body height 165.1 cm SHANIA Jhonatan [facility]; [facility] Work Phone: 06-03-2023 11:57-0400 Body mass index (BMI) [Ratio] 25.96 kg/m2 SHANIA Israel [facility]; [facility] Work Phone: 06-03-2023 11:57-0400 Body surface area Derived from formula 1.78 m2 SHANIA Israel [facility]; [facility] Work Phone: 06-03-2023 11:57-0400 Body temperature 97.8 [degF] SHANIA Israel [facility]; [facility] Work Phone: 06-03-2023 11:57-0400 Body weight 70.76 kg SHANIA Israel [facility]; [facility] Work Phone: 06-03-2023 11:57-0400 Diastolic blood pressure 70 mm[Hg] SHANIA Israel [facility]; [facility] Work Phone: 06-03-2023 11:57-0400 Heart rate 76 /min SHANIA Israel [facility]; [facility] Work Phone: 06-03-2023 11:57-0400 Respiratory rate 18 /min SHANIA Israel [facility]; [facility] Work Phone: 06-03-2023 11:57-0400 SaO2% (BldA) [Mass fraction] 97 % SHANIA Israel [facility]; [facility] Work Phone: 06-03-2023 11:57-0400 Systolic blood pressure 102 mm[Hg] SHANIA Israel [facility]; [facility] Work Phone: 03-02-2023 12:30-0400 Body height 165.1 cm [facility]; [facility] Work Phone: 03-02-2023 12:30-0400 Body mass index (BMI) [Ratio] 39.33 kg/m2 [facility]; [facility] Work Phone: 03-02-2023 12:30-0400 Body surface area Derived from formula 2.12 m2 [facility]; [facility] Work Phone: 03-02-2023 12:30-0400 Body temperature 97.5 [degF] [facility]; [facility] Work Phone: 03-02-2023 12:30-0400 Body weight 107.22 kg [facility]; [facility] Work Phone: 03-02-2023 12:30-0400 Diastolic blood pressure 78 mm[Hg] [facility]; [facility] Work Phone: 03-02-2023 12:30-0400 Heart rate 79 /min [facility]; [facility] Work Phone: 03-02-2023 12:30-0400 Respiratory rate 18 /min [facility]; [facility] Work Phone: 03-02-2023 12:30-0400 SaO2% (BldA) [Mass fraction] 97 % [facility]; [facility] Work Phone: 03-02-2023 12:30-0400 Systolic blood pressure 138 mm[Hg] [facility]; [facility] Work Phone: 11-29-2022 11:53-0500 Body height 165.1 cm [facility]; [facility] Work Phone: 11-29-2022 11:53-0500 Body mass index (BMI) [Ratio] 26.48 kg/m2 [facility]; [facility] Work Phone: 11-29-2022 11:53-0500 Body surface area Derived from formula 1.8 m2 [facility]; [facility] Work Phone: 11-29-2022 11:53-0500 Body temperature 96.9 [degF] Kayela Perquimans [employer] [facility]; [facility] Work Phone: 11-29-2022 11:53-0500 Body weight 72.18 kg [facility]; [facility] Work Phone: 11-29-2022 11:53-0500 Diastolic blood pressure 80 mm[Hg] [facility]; [facility] Work Phone: 11-29-2022 11:53-0500 Heart rate 94 /min [facility]; [facility] Work Phone: 11-29-2022 11:53-0500 Respiratory rate 16 /min [facility]; [facility] Work Phone: 11-29-2022 11:53-0500 SaO2% (BldA) [Mass fraction] 95 % [facility]; [facility] Work Phone: 11-29-2022 11:53-0500 Systolic blood pressure 120 mm[Hg] [facility]; [facility] Work Phone: 07-28-2022 14:33-0400 Body height 165.1 cm [facility]; [facility] Work Phone: 07-28-2022 14:33-0400 Body mass index (BMI) [Ratio] 26.21 kg/m2 [facility]; [facility] Work Phone: 07-28-2022 14:33-0400 Body surface area Derived from formula 1.79 m2 [facility]; [facility] Work Phone: 07-28-2022 14:33-0400 Body temperature 96.9 [degF] [facility]; [facility] Work Phone: 07-28-2022 14:33-0400 Body weight 71.44 kg [facility]; [facility] Work Phone: 07-28-2022 14:33-0400 Diastolic blood pressure 68 mm[Hg] [facility]; [facility] Work Phone: 07-28-2022 14:33-0400 Heart rate 61 /min [facility]; [facility] Work Phone: 07-28-2022 14:33-0400 Respiratory rate 16 /min [facility]; [facility] Work Phone: 07-28-2022 14:33-0400 SaO2% (BldA) [Mass fraction] 97 % [facility]; [facility] Work Phone: 07-28-2022 14:33-0400 Systolic blood pressure 116 mm[Hg] [facility]; [facility] [...] 13:36-0400 Respiratory rate 16 /min Ugo Dudley [facility]; [facility] Work Phone: 07-16-2022 13:36-0400 SaO2% (BldA) [Mass fraction] 99 % Ugo Dudley [facility]; [facility] Work Phone: 07-16-2022 13:36-0400 Systolic blood pressure 120 mm[Hg] Ugo Dudley [facility]; [facility] Work [...] (Body Mass Index) 26.29 kg/m2 Yen Nolan [facility] Work Phone: 08-11-2020 13:33-0500 Body Temperature 97.1 [degF] Yen Nolan [facility] Work Phone: Comment on above: Method: Infrared 08-11-2020 13:33-0500 Body weight 71.67 kg Yen Nolan [facility] Work Phone: 08-11-2020 13:33-0500 BP Diastolic 62 mm[Hg] Yen Nolan [facility] Work Phone: Comment on above: Patient Position: Sitting; Cuff Location : Left Arm; Cuff Size: Standard 08-11-2020 13:33-0500 BP Systolic 120 mm[Hg] Yen Nolan [facility] Work Phone: Comment on above: Patient Position: Sitting; Cuff Location : Left Arm; Cuff Size: Standard 08-11-2020 13:33-0500 BSA (Body Surface Area) 1.79 m2 Yen Nolan [facility] Work Phone: 08-11-2020 13:33-0500 Height 165.1 cm Yen Nolan [facility] Work Phone: 08-11-2020 13:33-0500 Pulse (Heart Rate) 57 /min Yen Nolan [facility] Work Phone: Comment on above: Pattern: Regular 08-11-2020 13:33-0500 Pulse Oximetry 97 % Isabelle Pat[facility]ño [facility] Work Phone: Comment on above: Room air 08-11-2020 13:33-0500 Respiratory Rate 16 /min Yen Nolan [facility] Internal Medicine Work Phone: Comment on above: Pattern: Unlabored 08-11-2020 13:33-0500 SaO2% (BldA) [Mass fraction] 97 % Yen Nolan [facility]; [facility] Work [...] 08:00-0400 BP Systolic 120 mm[Hg] [facility] Work Phone: Comment on above: Patient Position: Sitting; Cuff Location : Left Arm; Cuff Size: Standard 06-26-2020 08:00-0400 BSA (Body Surface Area) 1.79 m2 Candie Ramirez [facility] Internal Medicine Work Phone: 06-26-2020 08:00-0400 Height 165.1 cm Candie Ramirez [facility] Internal Medicine Work Phone: 06-26-2020 08:00-0400 Pulse (Heart Rate) 56 /min Candie Ramirez [facility] Internal Medicine Work Phone: Comment on above: Pattern: Regular 06-26-2020 08:00-0400 Pulse Oximetry 98 % Isabelle Patiño [facility] Work Phone: Comment on above: Room air 06-26-2020 08:00-0400 Respiratory Rate 16 /min Candie Ramirez [facility] Internal Medicine Work Phone: Comment on above: Pattern: Unlabored 06-26-2020 08:00-0400 SaO2% (BldA) [Mass fraction] 98 % Candie Ramirez [facility] Internal Medicine; [facility] Work Phone: 02-25-2020 14:07-0400 BMI (Body Mass Index) 26.31 kg/m2 Yen Nolan [facility] Internal Medicine Work Phone: 02-25-2020 14:07-0400 Body Temperature 96.9 [degF] Yen Nolan [facility] Internal Medicine Work Phone: Comment on above: Method: Temporal 02-25-2020 14:07-0400 Body weight 71.73 kg Yen Nolan [facility] Internal Medicine Work Phone: 02-25-2020 14:07-0400 BP Diastolic 70 mm[Hg] Yen Nolan [facility] Internal Medicine Work Phone: Comment on above: Patient Position: Sitting; Cuff Location : Left Arm; Cuff Size: Standard 02-25-2020 14:07-0400 BP Systolic 122 mm[Hg] Yen Nolan [facility] Medicine Work Phone: Comment on above: Patient Position: Sitting; Cuff Location : Left Arm; Cuff Size: Standard 02-25-2020 14:07-0400 BSA (Body Surface Area) 1.79 m2 Yen Nolan [facility] Medicine Work Phone: 02-25-2020 14:07-0400 Height 165.1 cm Yen Nolan [facility] Internal Medicine Work Phone: 02-25-2020 14:07-0400 Pulse (Heart Rate) 64 /min Yen Nolan [facility] Internal Medicine Work Phone: Comment on above: Pattern: Regular 02-25-2020 14:07-0400 Pulse Oximetry 94 % Isabelle Pat[facility]ño [facility] Work Phone: Comment on above: Room air 02-25-2020 14:07-0400 Respiratory Rate 18 /min Yen Nolan [facility] Internal Medicine Work Phone: Comment on above: Pattern: Unlabored 02-25-2020 14:07-0400 SaO2% (BldA) [Mass fraction] 94 % Yen Nolan [facility] Internal Medicine; [facility] Work Phone: 08-29-2019 12:20-0500 BMI (Body Mass Index) 27.48 kg/m2 Yen Nolan [facility] Internal Medicine Work Phone: 08-29-2019 12:20-0500 Body Temperature 98.1 [degF] Yen Nolan [facility] Internal Medicine Work Phone: Comment on above: Method: Oral 08-29-2019 12:20-0500 Body weight 74.9 kg Yen Nolan [facility] Internal Medicine Work Phone: 08-29-2019 12:20-0500 BP Diastolic 70 mm[Hg] Yen Nolan [facility] Internal Medicine Work Phone: Comment on above: Patient Position: Sitting; Cuff Location : Left Arm; Cuff Size: Standard 08-29-2019 12:20-0500 BP Systolic 122 mm[Hg] Yen Nolan [facility] Internal Medicine Work Phone: Comment on above: Patient Position: Sitting; Cuff Location : Left Arm; Cuff Size: Standard 08-29-2019 12:20-0500 BSA (Body Surface Area) 1.82 m2 Yen Nolan [facility] Internal Medicine Work Phone: 08-29-2019 12:20-0500 Height 165.1 cm Yen Nolan [facility] Internal Medicine Work Phone: 08-29-2019 12:20-0500 Pulse (Heart Rate) 65 /min Yen Nolan [facility] Internal Medicine Work Phone: Comment on above: Pattern: Regular 08-29-2019 12:20-0500 Pulse Oximetry 95 % Isabelle Patiño [facility] Work Phone: Comment on above: Room air 08-29-2019 12:20-0500 Respiratory Rate 16 /min Yen Nolan [facility] Internal Medicine Work Phone: Comment on above: Pattern: Unlabored 08-29-2019 12:20-0500 SaO2% (BldA) [Mass fraction] 95 % Yen Nolan [facility] Internal Medicine; [facility] Work Phone: 08-08-2019 11:00-0500 BMI (Body Mass Index) 27.29 kg/m2 Yen Nolan [facility] Internal Medicine Work Phone: 08-08-2019 11:00-0500 Body Temperature 97.2 [degF] Yen Nolan [facility] Internal Medicine Work Phone: Comment on above: Method: Temporal 08-08-2019 11:00-0500 Body weight 74.39 kg Yen Nolan [facility] Internal Medicine Work Phone: 08-08-2019 11:00-0500 BP Diastolic 78 mm[Hg] Yen Nolan [facility] Internal Medicine Work Phone: Comment on above: Patient Position: Sitting; Cuff Location : Left Arm; Cuff Size: Standard 08-08-2019 11:00-0500 BP Systolic 140 mm[Hg] Yen Nolan [facility] Internal Medicine Work Phone: Comment on above: Patient Position: Sitting; Cuff Location : Left Arm; Cuff Size: Standard 08-08-2019 11:00-0500 BSA (Body Surface Area) 1.82 m2 Yen Nolan [facility] Internal Medicine Work Phone: 08-08-2019 11:00-0500 Height 165.1 cm Yen Nolan [facility] Internal Medicine Work Phone: 08-08-2019 11:00-0500 Pulse (Heart Rate) 59 /min Yen oNlan [facility] Internal Medicine Work Phone: Comment on above: Pattern: Regular 08-08-2019 11:00-0500 Pulse Oximetry 98 % Isabelle Pat[facility]ño [facility] Work Phone: Comment on above: Room air 08-08-2019 11:00-0500 Respiratory Rate 18 /min Yen Nolan [facility] Internal Medicine Work Phone: Comment on above: Pattern: Unlabored 08-08-2019 11:00-0500 SaO2% (BldA) [Mass fraction] 98 % Yen Nolan [facility] Internal Medicine; [facility] Work Phone: 07-25-2018 11:04-0400 BMI (Body Mass Index) 27.29 kg/m2 Yen Nolan [facility] Internal Medicine Work Phone: 07-25-2018 11:04-0400 Body Temperature 96.9 [degF] Yen Nolan [facility] Internal Medicine Work Phone: Comment on above: Method: Temporal 07-25-2018 11:04-0400 Body weight 74.39 kg Yen Nolan [facility] Internal Medicine Work Phone: 07-25-2018 11:04-0400 BP Diastolic 70 mm[Hg] Yen Nolan [facility] Internal Medicine Work Phone: Comment on above: Patient Position: Sitting; Cuff Location : Left Arm; Cuff Size: Standard 07-25-2018 11:04-0400 BP Systolic 120 mm[Hg] Yen Nolan [facility] Internal Medicine Work Phone: Comment on above: Patient Position: Sitting; Cuff Location : Left Arm; Cuff Size: Standard 07-25-2018 11:04-0400 BSA (Body Surface Area) 1.82 m2 Yen Nolan [facility] Internal Medicine Work Phone: 07-25-2018 11:04-0400 Height 165.1 cm Yen Nolan [facility] Internal Medicine Work Phone: 07-25-2018 11:04-0400 Pulse (Heart Rate) 64 /min Yen Nolan [facility] Internal Medicine Work Phone: Comment on above: Pattern: Regular 07-25-2018 11:04-0400 Pulse Oximetry 94 % Isabelle Patiño [facility] Work Phone: Comment on above: Room air 07-25-2018 11:04-0400 Respiratory Rate 16 /min Yen Nolan [facility] Internal Medicine Work Phone: Comment on above: Pattern: Unlabored 07-25-2018 11:04-0400 SaO2% (BldA) [Mass fraction] 94 % Yen Nolan [facility] Internal Medicine; [facility] Work Phone: 07-25-2018 11:04-0400 Weight 74.39 kg Isabelle Patiño [facility] Work Phone: 05-17-2018 10:59-0400 BMI (Body Mass Index) 24.96 kg/m2 SHANIA Israel LPN [facility] Work Phone: 05-17-2018 10:59-0400 Body Temperature 97.3 [degF] SHANIA Israel LPN [facility] Work Phone: Comment on above: Method: Temporal 05-17-2018 10:59-0400 Body weight 68.04 kg SHANIA Israel LPN [facility] Work Phone: 05-17-2018 10:59-0400 BP Diastolic 80 mm[Hg] SHANIA Israel LPN [facility] Work Phone: Comment on above: [...] 10:59-0400 Pulse Oximetry 92 % Isabelle Patiño [facility] Work Phone: Comment on above: [...] Medicine Work Phone: Comment on above: hearing [facility] [place] and had a glaucoma test 06-27-2017 15:14-0400 Body weight 72.12 kg Rihcelle Campos RN [facility] Work Phone: Comment on above: hearing [facility] [place] and had a glaucoma test 06-27-2017 15:14-0400 BP Diastolic 58 mm[Hg] Richelle Campos RN [facility] Work Phone: Comment on above: Patient Position: Sitting; Cuff Location : Left Arm; Cuff Size: Standard [facility] center and had a glaucoma test 06-27-2017 15:14-0400 BP Systolic 98 mm[Hg] Richelle Campos RN [facility] Work Phone: Comment on above: Patient Position: Sitting; Cuff Location : Left Arm; Cuff Size: Standard [facility] 06-27-2017 15:14-0400 BSA (Body Surface Area) 1.79 m2 Richelle Campos RN [facility] Work Phone: Comment on above: hearing [facility] [place] and had a glaucoma test 06-27-2017 15:14-0400 Height 165.1 cm Richelle Campos RN [facility] Work Phone: Comment on above: hearing [facility] [place] and had a glaucoma test 06-27-2017 15:14-0400 Pulse (Heart Rate) 61 /min Richelle Campos RN [facility] Work Phone: Comment on above: Pattern: Regular hearing [facility] e [facility] and had a glaucoma test 06-27-2017 15:14-0400 Pulse Oximetry 95 % Isabelle Tellezon [facility] Work Phone: Comment on above: [facility] 06-27-2017 15:14-0400 Respiratory Rate 18 /min Richelle Campos RN [facility] Work Phone: Comment on above: Pattern: Unlabored hearing [facility] e [facility] and had a glaucoma test 06-27-2017 15:14-0400 SaO2% (BldA) [Mass fraction] 95 % Richelle Campos RN [facility]; [facility] Work Phone: 06-27-2017 15:14-0400 Weight 72.12 kg Isabelle Patiño [facility] Work Phone: Comment on above: hearing [facility] [place] and had a glaucoma test 05-05-2017 11:50-0400 [...] 12:16-0400 Pulse Oximetry 93 % Isabelle Pat[facility]ño [facility] Work Phone: Comment on above: Room air 12-23-2016 12:16-0400 Respiratory Rate 18 /min Richelle Campos RN [facility] Work Phone: Comment on above: Pattern: Unlabored 12-23-2016 12:16-0400 SaO2% (BldA) [Mass fraction] 93 % Richelle Campos RN [facility]; [facility] Work Phone: 12-23-2016 12:16-0400 Weight 74.56 kg Isabelle Pat[facility]ño [facility] Work Phone: 06-24-2016 12:20-0400 BMI (Body Mass Index) 26.67 kg/m2 Isabelle Patiño [facility] Internal Medicine Work Phone: Comment on above: Hearing [facility] with Dr. Timi lópez yearly 06-24-2016 12:20-0400 Body Temperature 98 [degF] Isabelle Pat[facility]ño [facility] Work Phone: Comment on above: Hearing [facility] with Dr. Timi lópez yearly 06-24-2016 12:20-0400 Body weight 72.69 kg Isabelle Patiño [facility] Work Phone: Comment on above: Hearing [facility] with Dr. Timi lópez yearly 06-24-2016 12:20-0400 BP Diastolic 74 mm[Hg] Isabelle Patiño [facility] Work Phone: Comment on above: Patient Position: Sitting; Cuff Location : Left Arm; Cuff Size: Standard Hearing [facility] ecks with Dr. Xiao yearly 06-24-2016 12:20-0400 BP Systolic 116 mm[Hg] Isabelle Pat[facility]ño [facility] Work Phone: Comment on above: Patient Position: Sitting; Cuff Location : Left Arm; Cuff Size: Standard Hearing [facility] ecks with Dr. Xiao yearly 06-24-2016 12:20-0400 BSA (Body Surface Area) 1.8 m2 Isabelle Patiño [facility] Work Phone: Comment on above: Hearing [facility] checks with Dr. Timi lópez yearly 06-24-2016 12:20-0400 Height 165.1 cm Isabelle Patiño [facility] Work Phone: Comment on above: Hearing [facility] with Dr. Timi lópez yearly 06-24-2016 12:20-0400 Pulse (Heart Rate) 66 /min Isabelle Patiño [facility] Work Phone: Comment on above: Pattern: Regular Hearing [facility] ecks with Dr. Xiao yearly 06-24-2016 12:20-0400 Pulse Oximetry 97 % Isabelle Patiño [facility] Work Phone: Comment on above: Room air Hearing [facility] e[facility] with Dr. Xiao yearly 06-24-2016 12:20-0400 Respiratory Rate 18 /min Isabelle Patiño [facility] Work Phone: Comment on above: Pattern: Unlabored Hearing [facility] ecks with Dr. Xiao yearly 06-24-2016 12:20-0400 SaO2% (BldA) [Mass fraction] 97 % Isabelle Patiño DO Work Phone: [facility]; [facility] Work Phone: 06-24-2016 12:20-0400 Weight 72.69 kg Isabelle [facility] Work Phone: Comment on above: [...] air 06-17-2016 12:24-0400 Respiratory Rate 18 /min Ricehlle Campos RN [facility] Work Phone: [...] 11:49-0500 Pulse Oximetry 97 % [facility] Work Phone: Comment on above: Room air 11-12-2015 11:49-0500 Respiratory Rate 18 /min Richelle Campos RN [facility] Work Phone: Comment on above: Pattern: Unlabored 11-12-2015 11:49-0500 SaO2% (BldA) [Mass fraction] 97 % Richelle Campos RN [facility]; [facility] Work Phone: 11-12-2015 11:49-0500 Weight 75.52 kg Isabelle [facility] Work Phone: 07-17-2015 11:17-0400 BP Diastolic 66 mm[Hg] Zeynep [facility] Work Phone: Comment on above: Patient Position: Sitting; Cuff Location : Left Arm; Cuff Size: Standard post-walk vitals 07-17-2015 11:17-0400 BP Systolic 118 mm[Hg] [facility]ynep [facility] Work Phone: Comment on above: Patient Position: Sitting; Cuff Location : Left Arm; Cuff Size: Standard post-walk vitals 07-17-2015 11:17-0400 Pulse (Heart Rate) 72 /min Zeynep [facility] Internal Medicine Work Phone: Comment on above: Pattern: Regular post-walk vitals 07-17-2015 11:17-0400 Pulse Oximetry 95 % Isabelle [facility] Work Phone: Comment on above: Room air post-walk vitals 07-17-2015 11:17-0400 Respiratory Rate 18 /min Zeynep Farrjenni [facility] Work Phone: Comment on above: Pattern: Unlabored post-walk vitals 07-17-2015 11:17-0400 SaO2% (BldA) [Mass fraction] 95 % Zeynep Abhishek [facility]; [facility] Work Phone: 07-17-2015 11:11-0400 BMI (Body Mass Index) 26.79 kg/m2 Zeynep Abhishek [facility] Work Phone: 07-17-2015 11:11-0400 Body Temperature 98.6 [degF] Zeynep [facility]arrjenni [facility] Work Phone: Comment on above: Method: Temporal 07-17-2015 [id number]:110400 Body weight 73.03 kg Zeynep Abhishek [facility] Work Phone: 07-17-2015 11:11-0400 BP Diastolic 68 mm[Hg] Zeynep Abhishek [facility] Work Phone: Comment on above: Patient Position: Sitting; Cuff Location : Left Arm; Cuff Size: Standard 07-17-2015 11:11-0400 BP Systolic 106 mm[Hg] Zeynep Farrjenni [facility] Work Phone: Comment on above: Patient Position: Sitting; Cuff Location : Left Arm; Cuff Size: Standard 07-17-2015 11:11-0400 BSA (Body Surface Area) 1.8 m2 Zeynep Abhishek [facility] Work Phone: 07-17-2015 11:11-0400 Height 165.1 cm Zeynep Abhishek [facility] Work Phone: 07-17-2015 11:11-0400 Pulse [...] (BldA) [Mass fraction] 95 % Zeynep Weiss [facility]; [facility] Work Phone: 07-17-2015 11:11-0400 Weight 73.03 kg Isabelle Patiño [facility] Work Phone: 07-08-2015 11:16-0400 BMI (Body Mass Index) 27.46 kg/m2 Valentina Lamb RN [facility] Internal Medicine Work Phone: 07-08-2015 11:16-0400 [...] Mass Index) 26.71 kg/m2 Valentina Lamb RN [facility] Internal Medicine Work Phone: Comment on above: not [facility] 06-19-2015 11:01-0400 Body Temperature 98.2 [degF] Valentina Lamb RN [facility] Work Phone: Comment on above: Method: Temporal not [facility] 06-19-2015 11:01-0400 Body weight 72.8 kg Valentina Lamb RN [facility] Work Phone: Comment on above: not [facility] 06-19-2015 11:01-0400 BP Diastolic 76 mm[Hg] Valentina Lamb RN [facility] Work Phone: Comment on above: Patient Position: Sitting; Cuff Location : Left Arm; Cuff Size: Standard [facility] 06-19-2015 11:01-0400 BP Systolic 124 mm[Hg] Valentina Lamb RN [facility] Work Phone: Comment on above: Patient Position: Sitting; Cuff Location : Left Arm; Cuff Size: Standard [facility] 06-19-2015 11:01-0400 BSA (Body Surface Area) 1.8 m2 Valentina Lamb RN [facility] Work Phone: Comment on above: not [facility] 06-19-2015 11:01-0400 Height 165.1 cm Valentina Lamb RN [facility] Work Phone: Comment on above: not [facility] 06-19-2015 11:01-0400 Pulse (Heart Rate) 68 /min Valentina Lamb RN [facility] Work Phone: Comment on above: Pattern: Regular not [facility] 06-19-2015 11:01-0400 Pulse Oximetry 98 % Isabelle Patiño [facility] Work Phone: Comment on above: Room air not [facility] 06-19-2015 11:01-0400 Respiratory Rate 16 /min Valentina Lamb RN [facility] Work Phone: Comment on above: Pattern: Unlabored not [facility] 06-19-2015 11:01-0400 SaO2% (BldA) [Mass fraction] 98 % Valentina Lamb RN [facility]; [facility] Work Phone: 06-19-2015 11:01-0400 Weight 72.8 kg Isabelle Tellezon [facility] Work Phone: Comment on above: not [facility] 04-10-2015 11:06-0400 BMI (Body Mass Index) 26.71 [...] 10-10-2014 10:51-0500 Weight 75.35 kg Isabelle [facility] Work Phone: 08-06-2014 14:05-0500 BMI (Body Mass Index) 27.29 kg/m2 Viviana Ayalasan [facility] Internal Medicine Work Phone: 08-06-2014 14:05-0500 Body Temperature 98 [degF] Viviana Martins [facility] Work Phone: Comment on above: Method: Oral 08-06-2014 14:05-0500 Body weight 74.39 kg Viviana Martins [facility] Work Phone: 08-06-2014 14:05-0500 BP Diastolic 68 mm[Hg] Viviana Martins [facility] Work Phone: Comment on above: Patient Position: Sitting; Cuff Location : Left Arm; Cuff Size: Standard 08-06-2014 14:05-0500 BP Systolic 102 mm[Hg] Viviana Martins [facility] Work Phone: Comment on above: Patient Position: Sitting; Cuff Location : Left Arm; Cuff Size: Standard 08-06-2014 14:05-0500 BSA (Body Surface Area) 1.82 m2 Viviana Martins [facility] Work Phone: 08-06-2014 14:05-0500 Height 165.1 cm Viviana Martins [facility] Work Phone: 08-06-2014 14:05-0500 Pulse (Heart Rate) 61 /min Viviana Martins [facility] Work Phone: Comment on above: Pattern: Regular 08-06-2014 14:05-0500 Pulse Oximetry 97 % Isabelle Patiño [facility] Work Phone: Comment on above: Room air 08-06-2014 14:05-0500 Respiratory Rate 18 /min Viviana Martins [facility] Work Phone: Comment on above: [...] Mass Index) 27.29 kg/m2 Valentina Lamb RN [facility] Internal Medicine Work Phone: 07-05-2014 11:21-0400 [...] BMI (Body Mass Index) 26.97 kg/m2 [facility] Work Phone: 04-04-2014 10:58-0400 Body Temperature 96.8 [degF] [facility] Work Phone: Comment on above: Method: Oral 04-04-2014 10:58-0400 Body weight 73.51 kg Marilynn Chanel [facility] Work Phone: 04-04-2014 10:58-0400 BP Diastolic 68 mm[Hg] [facility] Work Phone: Comment on above: Patient Position: Sitting; Cuff Location : Left Arm; Cuff Size: Standard 04-04-2014 10:58-0400 BP Systolic 115 mm[Hg] [facility] Work Phone: Comment on above: Patient Position: Sitting; Cuff Location : Left Arm; Cuff Size: Standard 04-04-2014 10:58-0400 BSA (Body Surface Area) 1.81 m2 [facility] Work Phone: 04-04-2014 10:58-0400 Height 165.1 cm [facility] Work Phone: 04-04-2014 10:58-0400 Pulse (Heart Rate) 61 /min Marilynn Chanel [facility] Work Phone: Comment on above: Pattern: Regular 04-04-2014 10:58-0400 Pulse Oximetry 98 % Isabelle Pat[facility] Work Phone: Comment on above: Room air 04-04-2014 10:58-0400 Respiratory Rate 16 /min Marilynn Chanel [facility] Work Phone: Comment on above: Pattern: Unlabored 04-04-2014 10:58-0400 SaO2% (BldA) [Mass fraction] 98 % Marilynn Chanel [facility]; [facility] Work Phone: 04-04-2014 10:58-0400 Weight 73.51 kg Isabelle Pat[facility] Work Phone: 01-03-2014 11:39-0400 BMI [...] Phone: 03-15-2013 11:21-0400 Body Temperature 98.3 [degF] Richelel aCmpos RN [facility] Work Phone: Comment [...] 10-11-2012 11:18-0500 Body Temperature 97.8 [degF] Richelle Camops RN [facility] Work Phone: Comment [...] 01-16-2010 11:22-0400 Weight 74.99 kg Isabelle [facility] Work Phone: 11-10-2009 08:58-0500 Body Temperature 98.1 [degF] [facility] Medicine Work Phone: Comment on above: Method: Oral 11-10-2009 08:58-0500 BP Diastolic 72 mm[Hg] [facility] Medicine Work Phone: Comment on above: Patient Position: Sitting; Cuff Location : Left Arm; Cuff Size: Standard 11-10-2009 08:58-0500 BP Systolic 116 mm[Hg] [facility] Work Phone: Comment on above: Patient Position: Sitting; Cuff Location : Left Arm; Cuff Size: Standard 11-10-2009 08:58-0500 Pulse (Heart Rate) 78 /min [facility] Internal Medicine Work Phone: Comment on above: Pattern: Regular 11-10-2009 08:58-0500 Pulse Oximetry 97 % Isabelle Pat[facility]ño [facility] Work Phone: Comment on above: Room air 11-10-2009 08:58-0500 Respiratory Rate 18 /min [facility] Internal Medicine Work Phone: Comment on above: Pattern: Unlabored 11-10-2009 08:58-0500 SaO2% (BldA) [Mass fraction] 97 % [facility]; [facility] Work [...] 10-17-2009 11:28-0500 Weight 75.89 kg Isabelle Tellezon [facility] Work Phone: 07-30-2009 12:03-0500 BMI (Body Mass Index) 27.62 kg/m2 Dianna Sagastume [employer] [facility] Work Phone: 07-30-2009 12:03-0500 Body weight 75.3 kg Dianna Sagastume [employer] [facility] Work Phone: 07-30-2009 12:03-0500 BP Diastolic 68 mm[Hg] Dianna Sagastume [facility] Work Phone: Comment on above: Patient Position: Sitting; Cuff Location : Left Arm; Cuff Size: Standard 07-30-2009 12:03-0500 BP Systolic 116 mm[Hg] Dianna Sagastume [employer] [facility] Work Phone: Comment on above: Patient Position: Sitting; Cuff Location : Left Arm; Cuff Size: Standard 07-30-2009 12:03-0500 BSA (Body Surface Area) 1.83 m2 Dianna Sagastume [employer] [facility] Work Phone: 07-30-2009 12:03-0500 Head Circumference 0 cm Isabelle Pat[facility] Work Phone: 07-30-2009 12:03-0500 Head [...] BSA (Body Surface Area) 1.83 m2 Richelle Capmos RN [facility] Work Phone: 07-18-2009 10:250400 Head Circumference 0 cm Isabelle Patiño [facility] Work Phone: 07-18-2009 10:25-0400 Head Occipital-frontal circumference 0 cm Richelle Campos [...] 11:52-0500 Head Circumference 0 cm Isabelle [facility] Work Phone: 09-11-2008 11:52-0500 Head [...] 09-11-2008 11:52-0500 Weight 78.56 kg Isabelle Pat[facility] Work Phone: 07-24-2008 11:46-0400 BMI (Body Mass Index) 28.02 kg/m2 Stefany Gracia [facility] Internal Medicine Work Phone: 07-24-2008 11:46-0400 Body weight 76.37 kg Stefany Gracia [facility] Work Phone: 07-24-2008 11:46-0400 BP Diastolic 80 mm[Hg] Stefany Gracia [facility] Work Phone: Comment on above: Patient Position: Sitting; Cuff Location : Left Arm; Cuff Size: Standard 07-24-2008 11:46-0400 BP Systolic 142 mm[Hg] [facility] Medicine Work Phone: Comment on above: Patient Position: Sitting; Cuff Location : Left Arm; Cuff Size: Standard 07-24-2008 11:46-0400 BSA (Body Surface Area) 1.84 m2 [facility] Internal Medicine Work Phone: 07-24-2008 11:46-0400 Head Circumference 0 cm Isabelle Patiño [facility] Work Phone: 07-24-2008 11:46-0400 Head Occipital-frontal circumference 0 cm [facility]; [facility] Work Phone: 07-24-2008 11:46-0400 Height 165.1 cm [facility] Medicine Work Phone: 07-24-2008 11:46-0400 Pulse (Heart Rate) 85 /min [facility] Medicine Work Phone: Comment on above: Pattern: Regular 07-24-2008 11:46-0400 Pulse Oximetry 95 % Isabelle Pat[facility]ño [facility] Work Phone: Comment on above: Room air 07-24-2008 11:46-0400 Respiratory Rate 18 /min [facility] Work Phone: Comment on above: Pattern: Unlabored 07-24-2008 11:46-0400 SaO2% (BldA) [Mass fraction] 95 % [facility]; [facility] Work [...] Mass Index) 28.29 kg/m2 Olga He RN [facility] Internal Medicine Work Phone: 04-12-2007 11:31-0400 [...] 11:31-0400 Head Circumference 0 cm Isabelle Tellezon [facility] Work Phone: 04-12-2007 11:31-0400 Head [...] End: 05-29-2025 Patient encounter procedure Pawel Bell [facility] Work Phone: Start: 05-29-2025 End: 05-29-[address] Isabelle Patiño DO Work Phone: [facility] Start: 01-10-2025 End: 01-10-2025 ambulatory Isabelle Kaylyn Facility[place] Start: 11-09-2024 ambulatory Isabelle Kaylyn Facilit y:[facility] Start: 11-09-2024 End: 11-09-2024 ambulatory Isabelle Kaylyn Facility:[facility] Start: 09-11-2024 End: 09-11-2024 ambulatory Isabelle Kaylyn Facility:[facility] Start: 07-26-2024 End: 07-26-2024 ambulatory Isabelle Kaylyn Facility:[facility] Start: 03-12-2024 Telephone encounter Zeyad bernstein DO Work Phone: [facility] [place] Start: 07-20-2023 End: 07-20-2023 Patient encounter procedure [facility] Jose LAO [facility] Start: 06-03-2023 End: 06-03-2023 Office outpatient visit 25 minutes Isabelle Kaylyn DO Work Phone: [facility] Start: 03-02-2023 End: 03-02-2023 Office outpatient visit 25 minutes Isabelle Kaylyn [...] / Non-visit Dr. Bertin Patiño Work Phone: [facility] Start: 10-21-2022 End: 10-21-[address] Isabelle Patiño Work Phone: [facility] Work Phone: Start: 10-21-2022 End: 10-21-[address] [facility] Start: 07-28-2022 End: 07-29-2022 Office outpatient visit 15 minutes Isabelle Patiño DO Work Phone: [facility] Start: 07-28-2022 Isabelle chavira DO Work Phone: [facility] Start: 07-20-2022 Non-patient / Non-visit Dr. Bertin Patiño Work Phone: [facility] Start: 07-19-2022 End: 07-19-[address] Isabelle Patiño Work Phone: [facility] Work Phone: Start: 07-19-2022 End: 07-19-[address] Isabelle [facility] Start: 07-16-2022 Isabelle chavira DO Work [...] Start: 03-16-2022 End: 03-16-2022 Patient encounter procedure [facility] Start: 03-02-2022 Isabelle Tellezo n DO [...] End: 08-08-2020 Phone Encounter Isabelle Kaylyn [facility] [employer] [facility] Start: 08-08-2020 End: 08-08-2020 Isabelle Patiño DO Work Phone: [facility] Start: 06-26-2020 End: 06-27-2020 Office outpatient visit 25 minutes Isabelle Kaylyn [facility] Start: 06-26-2020 Review Isabelle Kaylyn [facility] Start: 02-25-2020 End: 02-25-2020 Office outpatient visit 25 minutes Isabelle Kaylyn [facility] Start: 10-19-2019 End: 10-19-2019 Patient encounter procedure [facility] Start: 08-29-2019 End: 08-29-2019 Office outpatient visit [...] Start: 06-27-2017 End: 06-27-2017 Patient encounter procedure Isaeblle Patiño DO Work Phone: [facility] [...] Office outpatient visit 10 minutes Isabelle [facility] Start: 01-09-2015 End: 01-09-2015 Office outpatient visit 25 minutes Isabelle Patiño [facility] Start: 10-10-2014 End: 10-10-2014 Office outpatient visit 15 minutes Isabelle [facility] Start: 08-06-2014 End: 08-06-2014 Office consultation new/estab patient 40 min Isabelle Patiño [facility] Start: 07-16-2014 End: 07-16-2014 Office outpatient visit 15 minutes Isabelle Pat[facility]ño [facility] Start: 07-05-2014 End: 07-05-2014 Office outpatient visit 25 minutes Isabelle Pat[facility]ño [facility] Start: 06-19-2014 End: 06-20-2014 Office outpatient visit 5 minutes Isabelle Pat[facility]ño [facility] Start: 06-11-2014 End: 06-11-2014 Office outpatient new 20 minutes Isabelle Patiño [facility] Start: 06-11-2014 End: 06-11-2014 Patient encounter procedure Isabelle Patiño DO Work Phone: [facility] Start: 04-04-2014 End: 04-04-2014 Patient encounter Isabelle Kaylyn [facility] [employer] [facility] Start: 04-04-2014 End: 04-04-2014 Isabellefred Patiño DO Work Phone: [facility] Start: 01-04-2014 End: 01-04-2014 Patient encounter Isabelle Kaylyn [facility] [employer] [facility] Start: 01-04-2014 End: 01-04-2014 Phone Encounter Isabelle Kaylyn [facility] [employer] [facility] Start: 01-04-2014 End: 01-04-2014 Isabellefred Patiño DO Work Phone: [facility] Start: 01-03-2014 End: 01-03-2014 Patient encounter Isabelle Patiño [facility] [employer] [facility] Start: 01-03-2014 End: 01-03-2014 Isabelle Patiño DO Work Phone: [facility] Start: 07-03-2013 End: 07-03-2013 Patient encounter Isabelle Patiño [facility] [employer] [facility] Start: 07-03-2013 End: 07-03-2013 Isabelle Patiño DO Work Phone: [facility] Start: 06-20-2013 End: 06-20-2013 Patient encounter Isabelle Patiño [facility] [employer] [facility] Start: 06-20-2013 End: 06-20-2013 Isabelle Patiño DO Work Phone: [facility] Start: 03-15-2013 End: 03-15-2013 Patient encounter Isabelle Patiño [facility] [employer] [facility] Start: 03-15-2013 End: 03-15-2013 Isabelle Patiño DO Work Phone: [facility] Start: 10-11-2012 End: 10-11-2012 Patient encounter Isabelle Patiño [facility] [employer] [facility] Start: 10-11-2012 End: 10-11-2012 Isabelle Patñio DO Work Phone: [facility] Start: 07-07-2012 End: 07-07-2012 Patient encounter Isabelle Patiño [facility] [employer] [facility] Start: 07-07-2012 End: 07-07-2012 Isabelle Patiño DO Work Phone: [facility] Start: 07-04-2012 End: 07-05-2012 Patient encounter Isabelle Patiño [facility] [employer] [facility] Start: 07-04-2012 End: 07-05-2012 Isabelle Patiño DO Work Phone: [facility] Start: 05-19-2011 End: 05-19-2011 Patient encounter Isabelle Patiño [facility] [employer] [facility] Start: 05-19-2011 End: 05-19-2011 Isabelle Patiño DO Work Phone: [facility] Start: 03-17-2011 End: 03-19-2011 Patient encounter Isabelle Patiño [facility] [employer] [facility] Start: 03-17-2011 End: 03-19-2011 Isabelle Tellezon DO Work Phone: [facility] Start: 03-09-2011 End: 03-09-2011 Annotation/Addendum Isabelle Patiño [facility] [employer] [facility] Start: 03-09-2011 End: 03-09-2011 Isabelle Tellezon DO Work Phone: [facility] Start: 03-08-2011 End: 03-08-2011 Patient encounter Isabelle Patiño [facility] [employer] [facility] Start: 03-08-2011 End: 03-08-2011 Isabelle Tellezon DO Work Phone: [facility] Start: 02-16-2011 End: 02-16-2011 Annotation/Addendum Isabelle Patiño [facility] [employer] [facility] Start: 02-16-2011 End: 02-16-2011 Isabelle Tellezon DO Work Phone: [facility] Start: 02-15-2011 End: 02-15-2011 Patient encounter Isabelle Patiño [facility] [employer] [facility] Start: 02-15-2011 End: 02-15-2011 Isabelle Kaylyn DO Work Phone: [facility] Start: 10-22-2010 End: 10-22-2010 Patient encounter Isabelle Patiño [facility] [employer] [facility] Start: 10-22-2010 End: 10-22-2010 Isabelle Tellezon DO Work Phone: [facility] Start: 10-15-2010 End: 10-15-2010 Patient encounter Isabelle Patiño [facility] [employer] [facility] Start: 10-15-2010 End: 10-15-2010 Isabelle Kaylyn DO Work Phone: [facility] Start: 07-16-2010 End: 07-16-2010 Patient encounter Isabelle Patiño [facility] [employer] [facility] Start: 07-16-2010 End: 07-16-2010 Isabelle Kaylyn DO Work Phone: [facility] Start: 04-17-2010 End: 04-17-2010 Patient encounter Isabelle Patiño [facility] [employer] [facility] Start: 04-17-2010 End: 04-17-2010 Isabelle Kaylyn DO Work Phone: [facility] Start: 01-16-2010 End: 01-16-2010 Patient encounter Isabelle Patiño [facility] [employer] [facility] Start: 01-16-2010 End: 01-16-2010 Isabelle Patiño DO Work Phone: [facility] Start: 01-14-2010 End: 01-14-2010 Historical Summary Isabelle Patiño [facility] [employer] [facility] Start: 01-14-2010 End: 01-14-2010 Phone Encounter Isabelle Patiño [facility] [employer] [facility] Start: 01-14-2010 End: 01-14-2010 Isabelle Patiño DO Work Phone: [facility] Start: 01-09-2010 End: 01-09-2010 Patient encounter Isabelle Patiño [facility] [employer] [facility] Start: 01-09-2010 End: 01-09-2010 Isabelle Patiño DO Work Phone: [facility] Start: 11-10-2009 End: 11-10-2009 Patient encounter Iasbelle Patiño [facility] [employer] [facility] Start: 11-10-2009 End: 11-10-2009 Isabelle Patiño DO Work Phone: [facility] Start: 10-17-2009 End: 10-17-2009 Patient encounter Isabelle Patiño [facility] [employer] [facility] Start: 10-17-2009 End: 10-17-2009 Isabelle Patiño DO Work Phone: [facility] Start: 07-30-2009 End: 07-30-2009 Patient encounter Isabelle Patiño [facility] [employer] [facility] Start: 07-30-2009 End: 07-30-2009 Isabelle Patiño DO Work Phone: [facility] Start: 07-18-2009 End: 07-18-2009 Patient encounter Isabelle Patiño [facility] [employer] [facility] Start: 07-18-2009 End: 07-18-2009 Isabelle Patiño DO Work Phone: [facility] Start: 04-17-2009 End: 04-17-2009 Patient encounter Isabelle Patiño [facility] [employer] [facility] Start: 04-17-2009 End: 04-17-2009 Isabelle Patiño DO Work Phone: [facility] Start: 10-08-2008 End: 10-08-2008 Patient encounter Isabelle Patiño [facility] [employer] [facility] Start: 10-08-2008 End: 10-08-2008 Isabelle Patiño DO Work Phone: [facility] Start: 09-11-2008 End: 09-11-2008 Patient encounter Isabelle Patiño [facility] [employer] [facility] Start: 09-11-2008 End: 09-11-2008 Isabelle Patiño DO Work Phone: [facility] Start: 09-03-2008 End: 09-03-2008 Office outpatient visit 5 minutes Isabelle Patiño [facility] Start: 07-24-2008 End: 07-25-2008 Office outpatient visit 10 minutes Isabelle Patiño [facility] Start: 06-14-2008 End: 06-14-2008 Patient encounter Isabelle Patiño [facility] [employer] [facility] Start: 06-14-2008 End: 06-14-2008 Isabelle Patiño DO Work Phone: [facility] Start: 03-14-2008 End: 03-14-2008 Office outpatient visit 25 minutes Isabelle Patiño [facility] Start: 12-06-2007 End: 12-06-2007 Patient encounter Isabelle Patiño [facility] [employer] [facility] Start: 12-06-2007 End: 12-06-2007 Isabelle Patiño DO Work Phone: [facility] Start: 08-28-2007 End: 08-28-2007 Office outpatient visit 40 minutes Isabelle Patiño [facility] Start: 05-24-2007 End: 05-25-2007 Patient encounter Isabelle Patiño [facility] [employer] [facility] Start: 05-24-2007 End: 05-25-2007 Isabelle Patiño DO Work Phone: [facility] Start: 04-24-2007 End: 04-24-2007 Office outpatient visit 25 minutes Isabelle Patiño [facility] Start: 04-21-2007 End: 04-21-2007 Historical Summary Isabelle Patiño [facility] [employer] [facility] Start: 04-21-2007 End: 04-21-2007 Isabellefred Patiño DO Work Phone: [facility] Start: 04-12-2007 End: 04-12-2007 Patient encounter Isabelle Patiño [facility] [employer] [facility] Start: 04-12-2007 End: 04-12-2007 Isabelle Patiño DO Work Phone: [facility] Patient encounter procedure Yen Nolan [facility]; [facility] Work Phone: Patient encounter procedure Emily Onofre [place] [facility]; [facility] Work Phone: Patient encounter procedure Yen Nolan [facility]; [facility] Work Phone: Patient encounter procedure Isabelle Patiño DO Work Phone: [facility]; [facility] Work Phone: Patient encounter procedure Jas Rockford [facility]; [facility] Work Phone: [facility]; [facility] Work Phone: Patient encounter procedure Jefferson Connellyor [employer] [facility]; [facility] Work Phone: Patient encounter procedure Jeffersonnegrita Ruizr [facility]; [facility] Work Phone: Patient encounter status Vane Patiño DO Work Phone: [facility]; [facility] Work Phone: Procedures Date Procedure Procedure Detail Performing Clinician Start: 03-22-2023 End: 03-22-2023 Procedure Note: See Note; NOTES: [facility] [place] [address] OFFICE VISIT Date of Service: 03/22/23 MR#: [id number] Acct: [id number] Name: SKYLER SANTOS Rep #: [id number] : 1935 Provider: Dr. 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 transplanted heart: [place] heart Qualified Code(s): I25.10 - Atherosclerotic heart disease of [place] coronary artery without angina pectoris Comment: 06/16/2012 PCI of ostial LAD with MELINDA and cutting balloon arthrectomy to mid LAD. [facility]. Dr. Burgos. Plan: Continue present management (2) Presence of stent in coronary artery: Status: Acute Comment: 06/16/2012 PCI of ostial LAD with MELINDA and cutting balloon arthrectomy to mid LAD. [facility]. Dr. Burgos. Plan: Continue present management (3) HLD (hyperlipidemia): Status: Chronic Qualifiers: Hyperlipidemia type: unspecified Qualified Code(s): E78.5 - Hyperlipidemia, unspecified Plan: Continue statin (4) Non-rheumatic mitral regurgitation: Status: Acute Comment: Mild by echo in 2018. Plan Details Follow Up: 1 Year Coding Level of Care Code Off vis,est,level 2 Diagnoses Atherosclerotic heart disease of [place] coronary artery without angina pectoris I25.10 Nikolai vs. transplanted heart: [place] heart Presence of stent in coronary artery Z95.5 HLD (hyperlipidemia) E78.5 Hyperlipidemia type: unspecified Non-rheumatic mitral regurgitation I34.0 Coding Level of Care Code Off vis,est,level 2 Diagnoses Atherosclerotic heart disease of [place] coronary artery without angina pectoris I25.10 Nikolai vs. transplanted heart: [place] heart Presence of stent in coronary artery Z95.5 HLD (hyperlipidemia) E78.5 Hyperlipidemia type: unspecified Non-rheumatic mitral regurgitation I34.0 03/22/23 1232 <Electronically signed by Heather Burgos MD> Date Heather Burgos MD Cosigner Signature: Date (if applicable) CC: Dr. Isabelle Patiño, DO Isabelle Patiño DO Work Phone: Start: 12-09-2022 End: 12-10-2022 Procedure Note: See Note; NOTES: [facility] Imaging Services [address] [place] [address] Lung Screening MR#: [id number] Acct: [id number] Name: SKYLER SANTOS Rep #: [id number] : 1935 M 87 From: Anthony Healy MD PCP: Dr. Isabelle Patiño, DO Status: REG CLI Study: Low Dose CT Lung Screening Date of Exam: 12/09 Exam# [id number] Ordering Dr: Isabelle Patiño DO STUDY: LOW [...] 8:09 EDT Reading Location ID and State: [facility] , Service support , CC: Dr. Isabelle Patiño DO Hospice Executive Director: Signed Isabelle Patiño DO Work Phone: Start: 10-21-2022 End: 10-21-2022 Procedure Note: See Note; NOTES: [facility] Cardiovascular Services [address] [facility] [place] [address] Carotid Duplex Ultrasound 10/21/22 1008 MR#: [id number] Acct: [id number] Name: SKYLER SANTOS Rep #: [id number] : 1935 87 From: Bronson Mcgowan MD Attending Dr: Dr. Isabelle Patiño DO Status: R EG CLI Ordering Dr: Isabelle Patiño DO Date: 10/21/22 Location: [facility] Sex: M C Admitted: Reason For Study: [...] the left vertebral artery. Procedure Carotid Duplex 85349. This is a Carotid Duplex examination using [...] Date Dictated: 10/21/22 1008 Date Transcribed: 10/21/221512 Hospice Executive Director: Signed Isabelle Patiño DO Work Phone: Start: 07-20-2022 End: 07-20-2022 Procedure Note: See Note; NOTES: [facility] Pulmonary Services/Neurology [address] [place] [address] MR#: [id number] Acct: [id number] Name: SKYLER SANTOS Rep #: [id number] : 1935 87 From: En Ahn MD Referring Dr: Isabelle Patiño DO Status: REG CL I Location: [facility] Date: 07/19/22 Sex: M C COMPLETE PULMONARY FUNCTION TEST INTERPRETATION Brief HPI: Patient is an 87-year-old male, currently under the care of Dr. Patiño, who presents to [facility] for complete pulmonary function tests secondary to [...] DO Date Dictated: 07/20/22547 Date Transcribed: 07/20/22547 Hospice Executive Director: SANDRA Signed Isabelle Patiño DO Work Phone: Start: 03-23-2022 End: 03-23-2022 Procedure Note: See Note; NOTES: [facility] [address] [place] [address] OFFICE VISIT Date of Service: 03/23/22 MR#: [id number] Acct: [id number] Name: SKYLER SANTOS Rep #: [id number] : 1935 Provider: Dr. 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 transplanted heart: bad [place] heart Qualified Code(s): I25.10 - Atherosclerotic heart disease of [place] coronary artery without angina pectoris Comment: 06/16/2012 PCI of ostial LAD with MELINDA and [facility] Plan: Doing well. Continue present management (2) Presence of stent in coronary artery: Status: Acute Comment: 06/16/2012 PCI of ostial LAD with MELINDA and [facility] Plan: Continue present management (3) Non-rheumatic mitral regurgitation: Status: Acute Plan: Continue present management Plan Details Follow Up: 1 Year Coding Level of Care Code Off vis,est,level 3 Diagnoses Atherosclerotic heart disease of [place] coronary artery without angina pectoris I25.10 Nikolai vs. transplanted heart: bad [place] heart Presence of stent in coronary artery Z95.5 Non-rheumatic mitral regurgitation I34.0 Coding Level of Care Code Off vis,est,level 3 Diagnoses Atherosclerotic heart disease of [place] coronary artery without angina pectoris I25.10 Nikolai vs. transplanted heart: bad [place] heart Presence of stent in coronary artery Z95.5 Non-rheumatic mitral regurgitation I34.0 03/23/22 1309 <Electronically signed by Heather Burgos MD> Date Heather Burgos MD Cosigner Signature: Date (if applicable) CC: DO Isabelle Villarreal DO Work Phone: Start: 03-16-2022 End: 03-17-2022 Procedure Note: See Note; NOTES: [facility] Cardiovascular Services [address] [place] [address] Carotid Duplex Ultrasound 03/16/22 0907 MR#: [id number] Acct: [id number] Name: OSEI SANTOSBebeto Monteiro Rep #: [id number] : 1935 86 From: Meir Mendiola MD Attending Dr: Dr. Isabelle Patiño DO [facility]: Isabelle Patiño DO Date: 03/16/22 Location: [facility] Sex: M C Admitted: Reason For Study: [...] the left vertebral artery. Procedure Carotid Duplex 70965. This is a Carotid Duplex examination using [...] DO Date Dictated: 03/16/22906 Date Transcribed: 03/17/22816 Hospice Executive Director: Signed Isabelle Patiño DO Work Phone: Start: 03-10-2021 End: 03-10-2021 Comments: See Note; NOTES: [facility] [address] [facility] [address] [place] [address] OFFICE VISIT Date of Service: 03/10/21 MR#: [id number] Acct: [id number] Name: SKYLER SANTOS Rep #: [id number] : 1935 Provider: Dr. 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 transplanted heart: bad [place] heart Qualified Code(s): I25.10 - Atherosclerotic heart disease of [place] coronary artery without angina pectoris Comment: 06/16/2012 [...] vis,est,level 4 Diagnoses Atherosclerotic heart disease of [place] coronary artery without angina pectoris I25.10 Nikolai vs. transplanted heart: bad [place] heart Presence of stent in coronary artery Z95.5 HLD (hyperlipidemia) E78.5 Hyperlipidemia type: unspecified Non-rheumatic mitral regurgitation I34.0 Coding Level of Care Code Off vis,est,level 4 Diagnoses Atherosclerotic heart disease of bad [place] coronary artery without angina pectoris I25.10 Nikolai vs. transplanted heart: bad [place] heart Presence of stent in coronary artery [...] Virtual Office Visit Comments: See Note; NOTES: [facility] Services [address] [place] [address] OFFICE VISIT Date of Service: 03/04/20 MR#: [id number] Acct: [id number] Patient: SKYLER SANTOS Rep #: [id number] : 1935 Provider: Dr. Heather baeza MD Age/Sex: 84/M Location: [facility] Status: Signed Intake Vital Signs 03/04/20 Weight: [...] BID #30 tab 03/04/20 [Rx Confirmed 03/04/20] [facility] Medical History Carotid stenosis (Chronic) Mitral regurgitation (Chronic) HLD (hyperlipidemia) (Chronic) Coronary artery disease involving [place] coronary artery (Chronic) COPD (chronic obstructive pulmonary [...] artery disease status post anterior ST elevation [place] in May 2012 treated with drug-eluting stent [...] with no video. Quality Reporting Medication Reconciliation ([facility]) aspirin 81 mg PO DAILY@0800 atorvastatin [...] Assessment Plan 1. Coronary artery disease involving [place] coronary artery of bad [place] heart without angina pectoris I25.10 Plan Patient is doing well. Continue current medications. 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 2. Hyperlipidemia, unspecified hyperlipidemia type E78.5 Plan Continue present management. 3. H/O coronary angioplasty Z98.61 06/16/2012 PCI of ostial LAD with MELINDA and cutting balloon arthrectomy to mid LAD. [facility]. Dr. Burgos. Plan Continue present management. [...] 2 Telephone Diagnoses Coronary artery disease involving [place] coronary artery of [place] heart without angina pectoris I25.10 ?Nikolai vs. transplanted heart: bad river [place] heart ?Associated angina: without angina Hyperlipidemia, unspecified hyperlipidemia type E78.5 ?Hyperlipidemia type: unspecified H/O coronary angioplasty Z98.61 Non-rheumatic mitral regurgitation I34.0 ?Cardiac valve disease etiology: nonrheumatic 03/04/20 1157 <Electronically signed by Heather Burgos MD> Date Heather Burgos MD Cosigner Signature: Date (if applicable) CC: Dr. Isabelle Patiño, DO Isabelle Patiño Start: 03-06-2019 End: 03-06-2019 Cardiology Visit Report Comments: See Note; NOTES: [facility] 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 Coronary artery disease involving [place] coronary artery of [place] heart without angina pectoris I25.10 Plan Doing very well at this time. Continue current medications. 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 Orders Orders: 2. Bilateral carotid artery stenosis I65.23 Plan Continue current medications. 3. Non-rheumatic mitral regurgitation I34.0 Plan Continue current management. Plan Detail Other Orders Orders: Coding Level of Care Code Off vis,est,level 4 Diagnoses Coronary artery disease involving [place] coronary artery of [place] heart without angina pectoris I25.10 Nikolai vs. transplanted heart: bad [place] heart Associated angina: without angina Bilateral carotid artery stenosis I65.23 Laterality: bilateral Non-rheumatic mitral regurgitation I34.0 Cardiac valve disease etiology: nonrheumatic Coding Level of Care Code Off vis,est,level 4 Diagnoses Coronary artery disease involving [place] coronary artery of bad [place] heart without angina pectoris I25.10 Nikolai vs. transplanted heart: [place] heart Associated angina: without angina Bilateral carotid [...] performed by [facility] Comments: See Note; NOTES: [address] [address] 12 Lead EKG performed by [facility] 03/05/19 1259 MR#: [id number] Acct: [id number] Name: SKYLER SANTOS Rep #: [id number] : 1935 83 From: Heather Burgos MD Attending Dr: Janina Burgos MD Status: DEP AMB Ordering Dr: Heather Burgos MD Date: 03/05/19 Location: [facility] Sex: M C Admitted: [facility]/12 Lead EKG performed by [facility] ECG Report Interpretation Sinus Rhythm Low voltage -possible pulmonary disease. ABNORMAL Electronically signed on 03/22/2019 at 12:47 by Dane Landis Software Version 8610 03/22/191250 Date Heather Burgos MD CC: Isabelle Patiño DO Date Dictated: 03/05/191258 Date Transcribed: 03/05/191258 Hospice Executive Director: NN Signed Isabelle Patiño Work Phone: Start: 03-13-2018 End: 03-14-[address] Lung Screening Comments: See Note; NOTES: [facility] Imaging Services [address] [place] [address] Lung Screening MR#: [id number] Acct: [id number] Name: SKYLER SANTOS Rep #: [id number] : 1935 M 82 From: Alfredo Massey DO PCP: Isabelle Patiño DO Status: REG CLI Study: Low Dose CT Lung Screening Date of Exam: 03/13/18 Exam# [id number] Ordering Dr: Yeni Christie DO STUDY: LOW [...] Alfredo Massey DO at 11:21 EDT Tel [phone], Service support , CC: Yeni Christie DO; Isabelle Patiño DO Hospice Executive Director: Signed Yeni Christie Work Phone: Start: 02-01-2018 End: 02-01-2018 Carotid Duplex Ultrasound Comments: See Note; NOTES: [facility] Cardiovascular Services [address] [place] [address] Carotid Duplex Ultrasound 01/30/18 1012 MR#: [id number] Acct: [id number] Name: SKYLER SANTOS Rep #: [id number] : 1935 82 From: Meir Mendiola MD Attending Dr: JANINA BURGOS Status: REG CLI Ordering Dr: JANINA BURGOS Date: 01/30/18 Location: [facility] Sex: M C Admitted: Reason For Study: [...] the left vertebral artery. Procedure Carotid Duplex 69192. Exam performed in department. Interpretation Summary Mild (<50%) stenosis right extracranial internal carotid. Mild (<50%) stenosis left extracranial internal carotid. Flow within the vertebral arteries is antegrade bilaterally. Ordering Physician: Janina Burgos Referring Physician: Isabelle Patiño Performed By: Kandy Chiu RVT 02/01/18705 Date Meir Mendiola MD CC: Isabelle Patiño DO; JANINA BURGOS; OUT OF TOWN DOCTOR Date Dictated: 01/30/18 1012 Date Transcribed: 02/01/18705 Hospice Executive Director: Signed Isabelle Patiño Start: 01-30-2018 End: 01-30-2018 Echocardiogram Complete Comments: See Note; NOTES: [facility] Cardiovascular Services [address] [place] [address] Echo Complete 01/30/18 1057 MR#: [id number] Acct: [id number] Name: SKYLER SANTOS Rep #: [id number] : 1935 82 From: Bert Garcia MD Attending Dr: JANINA BURGOS Status: REG CLI Ordering Dr: JANINA BURGOS Date: 01/30/18 Location: [facility] Sex: M C Admitted: Reason For Study: [...] Bert Garcia MD CC: Isabelle Patiño DO; [facility]; OUT OF TOWN DOCTOR Date Dictated: 01/30/18 1057 Date Transcribed: 01/30/181919 Hospice Executive Director: Signed Isabelle Kaylyn Start: 11-12-2015 End: 11-12-2015 Ecg routine ecg w/least 12 lds w/i&r [MEASUREMENTS ANALYSIS] Date of Test: 11/12/2015 12:42:52; Heart Rate: 62; LA Interval: 156; QRS: 76; QT Interval: 382; Corrected QT Interval (QTc): 385; P Wave [place]: 63; QRS Wave [place]: 37; T Wave [place]: 39; Blood Pressure: 122/78 [ECG DIAGNOSTIC STATEMENTS] Date of Test: 11/12/2015 12:42:52; Summary: Sinus Rhythm Low voltage -possible pulmonary disease. ABNORMAL Isabelle Patiño Work Phone: Start: 07-17-2015 End: 07-17-2015 Spmtry w/vc expiratory karin w/wo mxml vol vntj _ Nurse Visit Start: 01-19-2015 End: 01-19-2015 Carotid Duplex Ultrasound Comments: See Note; NOTES: [facility] Cardiovascular Services [address] [place] [address] Carotid Duplex Ultrasound 01/17/15 1515 MR#: [id number] Acct: [id number] Name: SKYLER SANTOS Rep #: [id number] : 1935 79 From: Meir Mendiola MD Attending Dr: Isabelle Patiño DO Status: REG CLI Ordering Dr: Isabelle Patiño DO Date: 01/17/15 Location: [facility] Sex: M C Admitted: Rt. Velocities/BP Lt. [...] in the left bulb. Procedure Carotid Duplex 13482. Exam performed in department. Interpretation Summary Mild (<50%) stenosis right extracranial internal carotid. Mild (<50%) stenosis left extracranial internal carotid. Flow within the vertebral arteries is antegrade bilaterally. _ Ordering Physician: Isabelle Patiño Performed By: Rosie Sepulveda RDCS 01/19/152104 Date Meir Mendiola MD CC: Isabelle Tellezon Date Dictated: 01/17/15 1515 Date Transcribed: 01/19/152104 Hospice Executive Director: Signed Isabelle Patiño Work Phone: Start: 06-19-2014 End: 06-19-2014 Spmtry w/vc expiratory karin w/wo mxml vol vntj _ Isabelle Patiño Work Phone: Start: 02-21-2014 End: 02-21-2014 Emergency Department Summary Comments: See Note; NOTES: [facility] Medical Records Department [address] [place] [address] Emergency Department Summary MR#: [id number] Acct: [id number] Name: SKYLER SANTOS Rep #: [id number] : 1935 78 From: Landen Pizarro MD PCP: Isabelle Patiño DO Status: DEP ER DATE OF SERVICE: 02/20/2014 METHOD OF ARRIVAL: Private car. CHIEF COMPLAINT: Laceration, left index and long finger. DATE OF SERVICE: February 20, 2014. PRIMARY CARE: Isabelle Patiño. CHO HISTORY: A 78-year-old male with history of hypertension, prior MN with stents, COPD, prostate cancer. The patient [...] C: Isabelle Patiño DO T: NTS JOB: [id number] 02/21/14 1507 <Electronically signed by Landen Pizarro MD> Date Landen Pizarro MD CC: Isabelle Patiño DO Date Dictated: 02/20/142112 Date Transcribed: 02/20/142112 Hospice Executive Director: Yung Christie Work Phone: Start: 02-20-2014 End: 02-20-2014 Discharge Instruction Comments: See Note; NOTES: [facility] Medical Records Department [address] [place] [address] Discharge Instruction 02/20/142110 MR#: [id number] Acct: [id number] Name: SKYLER SANTOS Rep #: [id number] : 1935 78 From: Landen Pizarro MD [...] PA and Lateral Comments: See Note; NOTES: [facility] Imaging Services [address] [place] [address] Radiology Report MR#: [id number] Acct: [id number] Name: SKYLER SANTOS Rep #: [id number] : 1935 M 78 From: Alfredo Massey DO PCP: Isabelle Patiño DO Status: REG CLI Study: Chest PA and Lateral Date of Exam: 09/25/13 Exam# [id number] Ordering Dr: Isabelle Patiño DO STUDY: X-RAY [...] D.O. at 9:41 EST , Service support [phone], CC: Isabelle Patiño DO Hospice Executive Director: Signed Isabelle Patiño Work Phone: Start: 06-27-2013 End: 07-04-2013 Aorta Comments: See Note; NOTES: [facility] Imaging Services [address] [place] [address] Ultrasound Report MR#: [id number] Acct: [id number] Name: SKYLER SANTOS Rep #: [id number] : 1935 M 78 From: Antony Brown MD PCP: Isabelle Patiño DO Status: REG CLI Study: Aorta Date of Exam: 06/27/13 Exam# [id number] Ordering Dr: Isabelle Patiño DO PROCEDURES: ULTRASOUND [...] June 27, 2013 at 1:47:28 PM EDT [phone] Electronically Signed GP/GP If you are the referring physician and would like to consult with the radiologist who provided this interpretation, please contact Antony Brown M.D. at [phone]. If this radiologist is unavailable, you will be directed to another radiologist to assist. If you are a patient with a question regarding this report, please contact your referring physician directly. Professional Interpretation Provided By: [employer], Phone , These documents contain legally protected [...] of these documents. CC: Isabelle Patiño DO Hospice Executive Director: Signed Isabelle Patiño Work Phone: Plan of Treatment Date Care Activity Detail Author Start: 05-27-2024 Influenza vaccination Influenz a Vaccine (Season Ended) [facility] Start: 02-21-2024 Urine microalbumin profile DTaP,Tdap,Td Vaccine (3 - Td or Tdap) [facility] Start: 09-26-2023 Advance Directive Discussion Advance Directive Discussion [facility] Start: 09-26-2023 Behavioral Health Screening Behavioral Health Screening [facility] Start: 06-03-2023 Procedure Education [facility]; [facility] Work Phone: Start: 06-03-2023 Provider Instruction s for Treatment [facility]; [facility] Work Phone: Start: 06-03-2023 Hemoglobin glycosyla myles a1c [facility]; [facility] Work Phone: Start: 05-27-2023 Covid-19 Vaccine ( season) Covid-19 Vaccine () [facility] Start: 03-02-2023 Procedure Education Com prehensive Internal [...] let reagnt non-auto micrscpy URINALYSIS W MICROSCOPY (97806) [facility] Work Phone: Start: 08-08-2020 Urine albumin quantitative MICROALBUMIN: CREATININE RATIO (32758) AND (45489) [facility] Work Phone: Start: 08-08-2020 Blood count complete automated CBC & PLATELETS (AUTO) (79571) [facility] Work Phone: Start: 08-08-2020 Comprehensive metabo lic panel METABOLIC PANEL, COMPREHENSIVE (03447) [facility] Work Phone: Start: 08-08-2020 TSH Qn TSH (THYROID STIMULATING HORMONE) (08077) [facility] Work Phone: Start: 08-08-2020 Lipoprotein blood qu an numbers & subclasses NMR Profile (08047) [facility] Work Phone: Start: 06-26-2020 Procedure Education Com [facility] Work Phone: Start: 06-26-2020 Provider Instruction s for Treatment [facility] Work Phone: Start: 06-26-2020 Glucose [Mass/Vol] Blood Gluco se , Office (54090) [facility] Work Phone: Start: 06-26-2020 HbA1c (Bld) [Mass fraction] HgA1C , Office (89699) [facility] Work Phone: Start: 02-25-2020 [...] Work Phone: Start: 12-23-2016 Thyrotropin Qn TSH (86614) [facility] Work Phone: Start: [...] Work Phone: Start: 02-13-2016 Thyrotropin Qn TSH (33306) [facility] Work Phone: Start: [...] Work Phone: Start: 07-08-2015 Thyrotropin Qn TSH (11614) [facility] Work Phone: Start: [...] Work Phone: Start: 10-10-2014 Thyrotropin Qn TSH (53680) [facility] Work Phone: Start: [...] Work Phone: Start: 06-26-2014 Lipid panel Comprehens [facility]wn [facility] Work Phone: Start: 06-26-2014 Urine [...] Work Phone: Start: 06-26-2014 Thyrotropin Qn TSH (37070) [facility] Work Phone: Start: [...] A1c/Hemoglobin.total mass fraction (Bld) HgA1C , Office (36655) [facility] Work Phone: Comment on [...] Work Phone: Start: 07-18-2009 Thyrotropin Qn TSH (90573) [facility] Work Phone: Start: [...] Work Phone: Start: 03-14-2008 Thyrotropin Qn TSH (24458) [facility] Work Phone: Start: 03-14-2008 Urine albumin quantitative [facility] Work Phone: Start: 03-14-2008 Comprehensive metabo lic panel [facility] Work Phone: Start: 03-14-2008 Blood count manual c ell count each [facility] Work Phone: Start: 03-14-2008 Lipid panel Comprehens [facility] Work Phone: Start: 12-06-2007 Provider [...] RSV Vaccine (1 - 1-dose 60+ series) [facility] Start: 1987 Shingrix Vaccine (1 of 2) Shingrix Vaccine (1 of 2) [facility] Start: 1982 Diabetes Screening Diabetes Screenin g [facility] Start: 1943 Pneumococcal Vaccine : 65+ (1 of 2 - PCV) Pneumococcal Vaccine: 65+ (1 of 2 - PCV) [facility] Work Phone: Comprehensive [...] diphtheria toxoid, and acellular pertussis vaccine, adsorbed [facility] 09-03-2008 influenza, seasonal, injectable Isabelle Patiño [facility] [employer] [facility] Work Phone: Comment on above: Lot #[id number]/30/0 9Site-right deltoidDose0.5mlgiven by Vianca Gracia LPN 09-03-2008 influenza virus vaccine, unspecified formulation Zeyad Jim Work Phone: [facility] Payers Date Payer Category Payer Self-pay [id number] 2018 Medicare HUMANA MEDICARE HU[employer]NA MEDICARE PPO [id number] 2018-Present [id number] [place] [address] PPO [id number] 2009 Medicare [id number] 2002 Medicare [id number] 1935 Unknown [id number] Unknown Unknown [facility] [id number] Unknown [id number] Unknown [id number] Unknown [id number] Unknown [id number] Unknown [id number] Unknown [id number] Unknown [id number] Social History Date Type Detail Facility Start: 07-10-2021 Caffeine Use [facility] Work Phone: Comment on above: 4-5 [employer] , 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, 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, 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 Smokes cigars- 1 pk/ day Start: 03-10-2021 End: 03-23-2022 Tobacco smoking status [facility] Unknown if ever smoked [facility] Start: 1935 Sex Assigned At Male [facility] Start: 07-10-2021 End: 03-22-2023 Tobacco smoking status NHIS Smokes tobacco daily [facility] Start: 07-10-2021 Tobacco use and exposure Smokeless tobacco non-user [facility] Start: 07-10-2021 Tobacco use panel [facility] National Score (1-10 0), lower number is lower risk Not on file [facility] Start: 1935 Sex Assigned At Not on file [facility] Functional Status Date Assessment Result Facility 08-08-2020 [...] component of a physician's clinical assessment. Test(s) 502787-QVE-R ; 367993-NNP-I; 730675-Thtephceqrojg; 224456-Fbohwmqupfu, Total; 241471-JIE-N (Total); 033598-Euurg LDL-P; 546613-GLS Size; 163107-QU-TJ Scorewas developed and its performance characteristics determinedby [employer]. It has not been cleared or approved by the Foodand Drug Administration.PATIENT WAS FASTINGPERFORMED BY: [address] [place] [id number] BY: [facility] [facility] [id number] 02-20-2020 LP-IR Score 52 [facility] Work Phone: Comment on above: INSULIN RESISTANCE M KRSIHNA <--Insulin Sensitive Insulin Resistant--> Percentile in Reference PopulationInsulin Resistance ScoreLP-IR Score Low 25th 50th 75th High <27 27 45 63 >63LP-IR Score is inaccurate if patient is non-fasting. .The LP-IR score is a laboratory developed index that has beenassociated with insulin resistance and diabetes risk and should beused as one component of a physician's clinical assessment. Test(s) 404353-KSO-H ; 359886-BXH-F; 980429-QUY-X; 728703-Rynajqclxjfma; 306856-Kixoafcfwdt, Total; 910523-ZIB-C (Total);028469-Hligp LDL-P; 906100-JCL Size; 736572-TQ-AX Scorewas developed and its performance characteristics determinedby [facility]. It has not been cleared or approved by the Foodand Drug Administration.PATIENT WAS FASTINGPERFORMED BY: [address] [id number] BY: [facility] [facility] [id number] Clinical Notes 03-12-2024 Telephone Encounter - Zeyad Fernandez DO - 03/12/2024 1:56 PM EDTTelephone Encounter - Zeyad Fernandez DO - 03/12/2024 1:56 PM EDT Note Date & Type Note Facility 03-12-2024 Telephone encount er Note Nicolas for Skyler to establish care with me if interested. Zeyad Fernandez DO [facility] Work Phone: 03-12-2024 Miscellaneous Notes Formattin g of this note might be different from the original. Okluis enrique for Skyler to establish care with me if interested. Zeyad Fernandez DO documented in this encounter [facility] Evaluation note No assessment inform ation available [facility] Work Phone: Instructions Name cardiovascular counseling Indication:Coronary [...] tion Online using Patient Portal and [employer] Apps Indication:Smoker Start:16-Oct-2021 Instruction Type:Patient Education cardiovascular [...] tion Online using Patient Portal and [employer] Apps Indication:BMI 26.0-26.9,adult Start:21-Jan-2022 Instruction Type:Patient Education Patient Instructions Indication:Smoker Start:16-Oct-2021 Instruction Type:Provider Instructions for Treatment How to Access Health Informa tion Online using Patient Portal and [employer] Apps Indication:Smoker Start:16-Oct-2021 Instruction Type:Patient Education cardiovascular [...] tion Online using Patient Portal and [employer] Apps Indication:BMI 26.0-26.9,adult Start:21-Jan-2022 Instruction Type:Patient Education Patient Instructions Indication:Smoker Start:16-Oct-2021 Instruction Type:Provider Instructions for Treatment How to Access Health Informa tion Online using Patient Portal and [employer] Apps Indication:Smoker Start:16-Oct-2021 Instruction Type:Patient Education cardiovascular [...] tion Online using Patient Portal and [employer] Apps Indication:Diabetes mellitus type 2, controlled Start:07-Jun-2022 Instruction Type:Patient Education Patient Instructions Indication:BMI 26.0-26.9,adult Start:21-Jan-2022 Instruction Type:Provider Instructions for Treatment How to Access Health Informa tion Online using Patient Portal and [employer] Apps Indication:BMI 26.0-26.9,adult Start:21-Jan-2022 Instruction Type:Patient Education Patient Instructions Indication:Smoker Start:16-Oct-2021 Instruction Type:Provider Instructions for Treatment How to Access Health Informa tion Online using Patient Portal and [employer] Indication:Smoker Start:16-Oct-2021 Instruction Type:Patient Education cardiovascular [...] tion Online using Patient Portal and [employer] Indication:BMI 25.0-25.9,adult Start:16-Jul-2022 Instruction Type:Patient Education Patient Instructions Indication:Diabetes mellitus type 2, controlled Start:07-Jun-2022 Instruction Type:Provider Instructions for Treatment How to Access Health Informa tion Online using Patient Portal and [employer] Apps Indication:Diabetes mellitus type 2, controlled Start:07-Jun-2022 Instruction Type:Patient Education Patient Instructions Indication:BMI 26.0-26.9,adult Start:21-Jan-2022 Instruction Type:Provider Instructions for Treatment How to Access Health Informa tion Online using Patient Portal and [employer] Apps Indication:BMI 26.0-26.9,adult Start:21-Jan-2022 Instruction Type:Patient Education Patient Instructions Indication:Smoker Start:16-Oct-2021 Instruction Type:Provider Instructions for Treatment How to Access Health Informa tion Online using Patient Portal and [employer] Apps Indication:Smoker Start:16-Oct-2021 Instruction Type:Patient Education cardiovascular [...] tion Online using Patient Portal and [employer] Indication:BMI 25.0-25.9,adult Start:16-Jul-2022 Instruction Type:Patient Education Patient Instructions Indication:Diabetes mellitus type 2, controlled Start:07-Jun-2022 Instruction Type:Provider Instructions for Treatment How to Access Health Informa tion Online using Patient Portal and [employer] Apps Indication:Diabetes mellitus type 2, controlled Start:07-Jun-2022 Instruction Type:Patient Education Patient Instructions Indication:BMI 26.0-26.9,adult Start:21-Jan-2022 Instruction Type:Provider Instructions for Treatment How to Access Health Informa tion Online using Patient Portal and [employer] Apps Indication:BMI 26.0-26.9,adult Start:21-Jan-2022 Instruction Type:Patient Education Patient Instructions Indication:Smoker Start:16-Oct-2021 Instruction Type:Provider Instructions for Treatment How to Access Health Informa tion Online using Patient Portal and [employer] Apps Indication:Smoker Start:16-Oct-2021 Instruction Type:Patient Education cardiovascular [...] tion Online using Patient Portal and [employer] Apps Indication:BMI 25.0-25.9,adult Start:16-Jul-2022 Instruction Type:Patient Education Patient Instructions Indication:Diabetes mellitus type 2, controlled Start:07-Jun-2022 Instruction Type:Provider Instructions for Treatment How to Access Health Informa tion Online using Patient Portal and [employer] Apps Indication:Diabetes mellitus type 2, controlled Start:07-Jun-2022 Instruction Type:Patient Education Patient Instructions Indication:BMI 26.0-26.9,adult Start:21-Jan-2022 Instruction Type:Provider Instructions for Treatment How to Access Health Informa tion Online using Patient Portal and [employer] Apps Indication:BMI 26.0-26.9,adult Start:21-Jan-2022 Instruction Type:Patient Education Patient Instructions Indication:Smoker Start:16-Oct-2021 Instruction Type:Provider Instructions for Treatment How to Access Health Informa tion Online using Patient Portal and [employer] Apps Indication:Smoker Start:16-Oct-2021 Instruction Type:Patient Education cardiovascular [...] tion Online using Patient Portal and [employer] Apps Indication:BMI 26.0-26.9,adult Start:28-Jul-2022 Instruction Type:Patient Education cardiovascular counseling Indication:Coronary artery disease, non-occlusive Start:16-Jul-2022 Instruction Type:Provider Instructions for Treatment Patient Instructions Indication:BMI 25.0-25.9,adult Start:16-Jul-2022 Instruction Type:Provider Instructions for Treatment How to Access Health Informa tion Online using Patient Portal and [employer] Apps Indication:BMI 25.0-25.9,adult Start:16-Jul-2022 Instruction Type:Patient Education Patient Instructions Indication:Diabetes mellitus type 2, controlled Start:07-Jun-2022 Instruction Type:Provider Instructions for Treatment How to Access Health Informa tion Online using Patient Portal and [employer] Apps Indication:Diabetes mellitus type 2, controlled Start:07-Jun-2022 Instruction Type:Patient Education Patient Instructions Indication:BMI 26.0-26.9,adult Start:21-Jan-2022 Instruction Type:Provider Instructions for Treatment How to Access Health Informa tion Online using Patient Portal and [employer] Apps Indication:BMI 26.0-26.9,adult Start:21-Jan-2022 Instruction Type:Patient Education Patient Instructions Indication:Smoker Start:16-Oct-2021 Instruction Type:Provider Instructions for Treatment How to Access Health Informa tion Online using Patient Portal and [employer] Apps Indication:Smoker Start:16-Oct-2021 Instruction Type:Patient Education cardiovascular [...] tion Online using Patient Portal and [employer] Apps Indication:BMI 26.0-26.9,adult Start:28-Jul-2022 Instruction Type:Patient Education cardiovascular counseling Indication:Coronary artery disease, non-occlusive Start:16-Jul-2022 Instruction Type:Provider Instructions for Treatment Patient Instructions Indication:BMI 25.0-25.9,adult Start:16-Jul-2022 Instruction Type:Provider Instructions for Treatment How to Access Health Informa tion Online using Patient Portal and [email or web address]. [employer] Indication:BMI 25.0-25.9,adult Start:16-Jul-2022 Instruction Type:Patient Education Patient Instructions Indication:Diabetes mellitus type 2, controlled Start:07-Jun-2022 Instruction Type:Provider Instructions for Treatment How to Access Health Informa tion Online using Patient Portal and [employer] Apps Indication:Diabetes mellitus type 2, controlled Start:07-Jun-2022 Instruction Type:Patient Education Patient Instructions Indication:BMI 26.0-26.9,adult Start:21-Jan-2022 Instruction Type:Provider Instructions for Treatment How to Access Health Informa tion Online using Patient Portal and [employer] Apps Indication:BMI 26.0-26.9,adult Start:21-Jan-2022 Instruction Type:Patient Education Patient Instructions Indication:Smoker Start:16-Oct-2021 Instruction Type:Provider Instructions for Treatment How to Access Health Informa tion Online using Patient Portal and [email or web address]. [employer] Apps Indication:Smoker Start:16-Oct-2021 Instruction Type:Patient Education cardiovascular [...] tion Online using Patient Portal and [employer] Apps Indication:BMI 26.0-26.9,adult Start:28-Jul-2022 Instruction Type:Patient Education cardiovascular counseling Indication:Coronary artery disease, non-occlusive Start:16-Jul-2022 Instruction Type:Provider Instructions for Treatment Patient Instructions Indication:BMI 25.0-25.9,adult Start:16-Jul-2022 Instruction Type:Provider Instructions for Treatment How to Access Health Informa tion Online using Patient Portal and [employer] Indication:BMI 25.0-25.9,adult Start:16-Jul-2022 Instruction Type:Patient Education Patient Instructions Indication:Diabetes mellitus type 2, controlled Start:07-Jun-2022 Instruction Type:Provider Instructions for Treatment How to Access Health Informa tion Online using Patient Portal and [employer] Apps Indication:Diabetes mellitus type 2, controlled Start:07-Jun-2022 Instruction Type:Patient Education Patient Instructions Indication:BMI 26.0-26.9,adult Start:21-Jan-2022 Instruction Type:Provider Instructions for Treatment How to Access Health Informa tion Online using Patient Portal and [employer] Apps Indication:BMI 26.0-26.9,adult Start:21-Jan-2022 Instruction Type:Patient Education Patient Instructions Indication:Smoker Start:16-Oct-2021 Instruction Type:Provider Instructions for Treatment How to Access Health Informa tion Online using Patient Portal and [employer] Apps Indication:Smoker Start:16-Oct-2021 Instruction Type:Patient Education cardiovascular [...] Informa tion Online using Patient Portal and [email or web address]. [employer] Indication:BMI 26.0-26.9,adult Start:28-Jul-2022 Instruction Type:Patient Education cardiovascular counseling Indication:Coronary artery disease, non-occlusive Start:16-Jul-2022 Instruction Type:Provider Instructions for Treatment Patient Instructions Indication:BMI 25.0-25.9,adult Start:16-Jul-2022 Instruction Type:Provider Instructions for Treatment How to Access Health Informa tion Online using Patient Portal and [email or web address]. [employer] Indication:BMI 25.0-25.9,adult Start:16-Jul-2022 Instruction Type:Patient Education Patient Instructions Indication:Diabetes mellitus type 2, controlled Start:07-Jun-2022 Instruction Type:Provider Instructions for Treatment How to Access Health Informa tion Online using Patient Portal and [employer] Apps Indication:Diabetes mellitus type 2, controlled Start:07-Jun-2022 Instruction Type:Patient Education Patient Instructions Indication:BMI 26.0-26.9,adult Start:21-Jan-2022 Instruction Type:Provider Instructions for Treatment How to Access Health Informa tion Online using Patient Portal and [employer] Apps Indication:BMI 26.0-26.9,adult Start:21-Jan-2022 Instruction Type:Patient Education Patient Instructions Indication:Smoker Start:16-Oct-2021 Instruction Type:Provider Instructions for Treatment How to Access Health Informa tion Online using Patient Portal and [employer] Apps Indication:Smoker Start:16-Oct-2021 Instruction Type:Patient Education cardiovascular [...] Informa tion Online using Patient Portal and [email or web address]. [employer] Indication:BMI 26.0-26.9,adult Start:28-Jul-2022 Instruction Type:Patient Education cardiovascular counseling Indication:Coronary artery disease, non-occlusive Start:16-Jul-2022 Instruction Type:Provider Instructions for Treatment Patient Instructions Indication:BMI 25.0-25.9,adult Start:16-Jul-2022 Instruction Type:Provider Instructions for Treatment How to Access Health Informa tion Online using Patient Portal and [employer] Apps Indication:BMI 25.0-25.9,adult Start:16-Jul-2022 Instruction Type:Patient Education Patient Instructions Indication:Diabetes mellitus type 2, controlled Start:07-Jun-2022 Instruction Type:Provider Instructions for Treatment How to Access Health Informa tion Online using Patient Portal and [employer] Apps Indication:Diabetes mellitus type 2, controlled Start:07-Jun-2022 Instruction Type:Patient Education Patient Instructions Indication:BMI 26.0-26.9,adult Start:21-Jan-2022 Instruction Type:Provider Instructions for Treatment How to Access Health Informa tion Online using Patient Portal and [employer] Apps Indication:BMI 26.0-26.9,adult Start:21-Jan-2022 Instruction Type:Patient Education Patient Instructions Indication:Smoker Start:16-Oct-2021 Instruction Type:Provider Instructions for Treatment How to Access Health Informa tion Online using Patient Portal and [employer] Apps Indication:Smoker Start:16-Oct-2021 Instruction Type:Patient Education cardiovascular [...] Informa tion Online using Patient Portal and [email or web address]. [employer] Indication:BMI 26.0-26.9,adult Start:29-Nov-2022 Instruction Type:Patient Education Patient Instructions Indication:BMI 26.0-26.9,adult Start:28-Jul-2022 Instruction Type:Provider Instructions for Treatment How to Access Health Informa tion Online using Patient Portal and [employer] Indication:BMI 26.0-26.9,adult Start:28-Jul-2022 Instruction Type:Patient Education cardiovascular counseling Indication:Coronary artery disease, non-occlusive Start:16-Jul-2022 Instruction Type:Provider Instructions for Treatment Patient Instructions Indication:BMI 25.0-25.9,adult Start:16-Jul-2022 Instruction Type:Provider Instructions for Treatment How to Access Health Informa tion Online using Patient Portal and [employer] Apps Indication:BMI 25.0-25.9,adult Start:16-Jul-2022 Instruction Type:Patient Education Patient Instructions Indication:Diabetes mellitus type 2, controlled Start:07-Jun-2022 Instruction Type:Provider Instructions for Treatment How to Access Health Informa tion Online using Patient Portal and [employer]rd [employer] Apps Indication:Diabetes mellitus type 2, controlled Start:07-Jun-2022 Instruction Type:Patient Education Patient Instructions Indication:BMI 26.0-26.9,adult Start:21-Jan-2022 Instruction Type:Provider Instructions for Treatment How to Access Health Informa tion Online using Patient Portal and 3rd [employer] Apps Indication:BMI 26.0-26.9,adult Start:21-Jan-2022 Instruction Type:Patient Education Patient Instructions Indication:Smoker Start:16-Oct-2021 Instruction Type:Provider Instructions for Treatment How to Access Health Informa tion Online using Patient Portal and [employer] Apps Indication:Smoker Start:16-Oct-2021 Instruction Type:Patient Education cardiovascular [...] tion Online using Patient Portal and [employer] Apps Indication:BMI 26.0-26.9,adult Start:29-Nov-2022 Instruction Type:Patient Education Patient Instructions Indication:BMI 26.0-26.9,adult Start:28-Jul-2022 Instruction Type:Provider Instructions for Treatment How to Access Health Informa tion Online using Patient Portal and [employer] Apps Indication:BMI 26.0-26.9,adult Start:28-Jul-2022 Instruction Type:Patient Education cardiovascular counseling Indication:Coronary artery disease, non-occlusive Start:16-Jul-2022 Instruction Type:Provider Instructions for Treatment Patient Instructions Indication:BMI 25.0-25.9,adult Start:16-Jul-2022 Instruction Type:Provider Instructions for Treatment How to Access Health Informa tion Online using Patient Portal and [employer] Apps Indication:BMI 25.0-25.9,adult Start:16-Jul-2022 Instruction Type:Patient Education Patient Instructions Indication:Diabetes mellitus type 2, controlled Start:07-Jun-2022 Instruction Type:Provider Instructions for Treatment How to Access Health Informa tion Online using Patient Portal and [employer] Apps Indication:Diabetes mellitus type 2, controlled Start:07-Jun-2022 Instruction Type:Patient Education Patient Instructions Indication:BMI 26.0-26.9,adult Start:21-Jan-2022 Instruction Type:Provider Instructions for Treatment How to Access Health Informa tion Online using Patient Portal and [employer] Apps Indication:BMI 26.0-26.9,adult Start:21-Jan-2022 Instruction Type:Patient Education Patient Instructions Indication:Smoker Start:16-Oct-2021 Instruction Type:Provider Instructions for Treatment How to Access Health Informa tion Online using Patient Portal and [employer] Apps Indication:Smoker Start:16-Oct-2021 Instruction Type:Patient Education cardiovascular [...] tion Online using Patient Portal and [employer] Apps Indication:BMI 26.0-26.9,adult Start:29-Nov-2022 Instruction Type:Patient Education Patient Instructions Indication:BMI 26.0-26.9,adult Start:28-Jul-2022 Instruction Type:Provider Instructions for Treatment How to Access Health Informa tion Online using Patient Portal and [employer] Apps Indication:BMI 26.0-26.9,adult Start:28-Jul-2022 Instruction Type:Patient Education cardiovascular counseling Indication:Coronary artery disease, non-occlusive Start:16-Jul-2022 Instruction Type:Provider Instructions for Treatment Patient Instructions Indication:BMI 25.0-25.9,adult Start:16-Jul-2022 Instruction Type:Provider Instructions for Treatment How to Access Health Informa tion Online using Patient Portal and [employer] Apps Indication:BMI 25.0-25.9,adult Start:16-Jul-2022 Instruction Type:Patient Education Patient Instructions Indication:Diabetes mellitus type 2, controlled Start:07-Jun-2022 Instruction Type:Provider Instructions for Treatment How to Access Health Informa tion Online using Patient Portal and [employer] Apps Indication:Diabetes mellitus type 2, controlled Start:07-Jun-2022 Instruction Type:Patient Education Patient Instructions Indication:BMI 26.0-26.9,adult Start:21-Jan-2022 Instruction Type:Provider Instructions for Treatment How to Access Health Informa tion Online using Patient Portal and [employer] Apps Indication:BMI 26.0-26.9,adult Start:21-Jan-2022 Instruction Type:Patient Education Patient Instructions Indication:Smoker Start:16-Oct-2021 Instruction Type:Provider Instructions for Treatment How to Access Health Informa tion Online using Patient Portal and [employer] Apps Indication:Smoker Start:16-Oct-2021 Instruction Type:Patient Education cardiovascular [...] tion Online using Patient Portal and [employer] Apps Indication:Smoker Start:02-Mar-2023 Instruction Type:Patient Education Patient Instructions Indication:BMI 26.0-26.9,adult Start:29-Nov-2022 Instruction Type:Provider Instructions for Treatment How to Access Health Informa tion Online using Patient Portal and [employer] Apps Indication:BMI 26.0-26.9,adult Start:29-Nov-2022 Instruction Type:Patient Education Patient Instructions Indication:BMI 26.0-26.9,adult Start:28-Jul-2022 Instruction Type:Provider Instructions for Treatment How to Access Health Informa tion Online using Patient Portal and [employer] Apps Indication:BMI 26.0-26.9,adult Start:28-Jul-2022 Instruction Type:Patient Education cardiovascular counseling Indication:Coronary artery disease, non-occlusive Start:16-Jul-2022 Instruction Type:Provider Instructions for Treatment Patient Instructions Indication:BMI 25.0-25.9,adult Start:16-Jul-2022 Instruction Type:Provider Instructions for Treatment How to Access Health Informa tion Online using Patient Portal and [employer] Apps Indication:BMI 25.0-25.9,adult Start:16-Jul-2022 Instruction Type:Patient Education Patient Instructions Indication:Diabetes mellitus type 2, controlled Start:07-Jun-2022 Instruction Type:Provider Instructions for Treatment How to Access Health Informa tion Online using Patient Portal and [employer] Apps Indication:Diabetes mellitus type 2, controlled Start:07-Jun-2022 Instruction Type:Patient Education Patient Instructions Indication:BMI 26.0-26.9,adult Start:21-Jan-2022 Instruction Type:Provider Instructions for Treatment How to Access Health Informa tion Online using Patient Portal and [employer] Apps Indication:BMI 26.0-26.9,adult Start:21-Jan-2022 Instruction Type:Patient Education Patient Instructions Indication:Smoker Start:16-Oct-2021 Instruction Type:Provider Instructions for Treatment How to Access Health Informa tion Online using Patient Portal and [employer] Apps Indication:Smoker Start:16-Oct-2021 Instruction Type:Patient Education cardiovascular [...] tion Online using Patient Portal and [employer] Apps Indication:Smoker Start:02-Mar-2023 Instruction Type:Patient Education Patient Instructions Indication:BMI 26.0-26.9,adult Start:29-Nov-2022 Instruction Type:Provider Instructions for Treatment How to Access Health Informa tion Online using Patient Portal and [employer] Apps Indication:BMI 26.0-26.9,adult Start:29-Nov-2022 Instruction Type:Patient Education Patient Instructions Indication:BMI 26.0-26.9,adult Start:28-Jul-2022 Instruction Type:Provider Instructions for Treatment How to Access Health Informa tion Online using Patient Portal and [employer] Apps Indication:BMI 26.0-26.9,adult Start:28-Jul-2022 Instruction Type:Patient Education cardiovascular counseling Indication:Coronary artery disease, non-occlusive Start:16-Jul-2022 Instruction Type:Provider Instructions for Treatment Patient Instructions Indication:BMI 25.0-25.9,adult Start:16-Jul-2022 Instruction Type:Provider Instructions for Treatment How to Access Health Informa tion Online using Patient Portal and 3[employer] Apps Indication:BMI 25.0-25.9,adult Start:16-Jul-2022 Instruction Type:Patient Education Patient Instructions Indication:Diabetes mellitus type 2, controlled Start:07-Jun-2022 Instruction Type:Provider Instructions for Treatment How to Access Health Informa tion Online using Patient Portal and 3[employer] Apps Indication:Diabetes mellitus type 2, controlled Start:07-Jun-2022 Instruction Type:Patient Education Patient Instructions Indication:BMI 26.0-26.9,adult Start:21-Jan-2022 Instruction Type:Provider Instructions for Treatment How to Access Health Informa tion Online using Patient Portal and 3[employer] Apps Indication:BMI 26.0-26.9,adult Start:21-Jan-2022 Instruction Type:Patient Education Patient Instructions Indication:Smoker Start:16-Oct-2021 Instruction Type:Provider Instructions for Treatment How to Access Health Informa tion Online using Patient Portal and [employer] Apps Indication:Smoker Start:16-Oct-2021 Instruction Type:Patient Education cardiovascular [...] tion Online using Patient Portal and [employer] Apps Indication:BMI 26.0-26.9,adult Start:03-Jun-2023 Instruction Type:Patient Education Patient Instructions Indication:Smoker Start:02-Mar-2023 Instruction Type:Provider Instructions for Treatment How to Access Health Informa tion Online using Patient Portal and [employer] Apps Indication:Smoker Start:02-Mar-2023 Instruction Type:Patient Education Patient Instructions Indication:BMI 26.0-26.9,adult Start:29-Nov-2022 Instruction Type:Provider Instructions for Treatment How to Access Health Informa tion Online using Patient Portal and [employer] Apps Indication:BMI 26.0-26.9,adult Start:29-Nov-2022 Instruction Type:Patient Education Patient Instructions Indication:BMI 26.0-26.9,adult Start:28-Jul-2022 Instruction Type:Provider Instructions for Treatment How to Access Health Informa tion Online using Patient Portal and 3[employer] Apps Indication:BMI 26.0-26.9,adult Start:28-Jul-2022 Instruction Type:Patient Education cardiovascular counseling Indication:Coronary artery disease, non-occlusive Start:16-Jul-2022 Instruction Type:Provider Instructions for Treatment Patient Instructions Indication:BMI 25.0-25.9,adult Start:16-Jul-2022 Instruction Type:Provider Instructions for Treatment How to Access Health Informa tion Online using Patient Portal and 3[employer] Apps Indication:BMI 25.0-25.9,adult Start:16-Jul-2022 Instruction Type:Patient Education Patient Instructions Indication:Diabetes mellitus type 2, controlled Start:07-Jun-2022 Instruction Type:Provider Instructions for Treatment How to Access Health Informa tion Online using Patient Portal and 3[employer] Apps Indication:Diabetes mellitus type 2, controlled Start:07-Jun-2022 Instruction Type:Patient Education Patient Instructions Indication:BMI 26.0-26.9,adult Start:21-Jan-2022 Instruction Type:Provider Instructions for Treatment How to Access Health Informa tion Online using Patient Portal and 3[employer] Apps Indication:BMI 26.0-26.9,adult Start:21-Jan-2022 Instruction Type:Patient Education Patient Instructions Indication:Smoker Start:16-Oct-2021 Instruction Type:Provider Instructions for Treatment How to Access Health Informa tion Online using Patient Portal and [employer] Apps Indication:Smoker Start:16-Oct-2021 Instruction Type:Patient Education cardiovascular [...] tion Online using Patient Portal and [employer] Apps Indication:BMI 26.0-26.9,adult Start:03-Jun-2023 Instruction Type:Patient Education Patient Instructions Indication:Smoker Start:02-Mar-2023 Instruction Type:Provider Instructions for Treatment How to Access Health Informa tion Online using Patient Portal and [employer] Apps Indication:Smoker Start:02-Mar-2023 Instruction Type:Patient Education Patient Instructions Indication:BMI 26.0-26.9,adult Start:29-Nov-2022 Instruction Type:Provider Instructions for Treatment How to Access Health Informa tion Online using Patient Portal and [employer] Apps Indication:BMI 26.0-26.9,adult Start:29-Nov-2022 Instruction Type:Patient Education Patient Instructions Indication:BMI 26.0-26.9,adult Start:28-Jul-2022 Instruction Type:Provider Instructions for Treatment How to Access Health Informa tion Online using Patient Portal and [employer] Apps Indication:BMI 26.0-26.9,adult Start:28-Jul-2022 Instruction Type:Patient Education cardiovascular counseling Indication:Coronary artery disease, non-occlusive Start:16-Jul-2022 Instruction Type:Provider Instructions for Treatment Patient Instructions Indication:BMI 25.0-25.9,adult Start:16-Jul-2022 Instruction Type:Provider Instructions for Treatment How to Access Health Informa tion Online using Patient Portal and [employer] Apps Indication:BMI 25.0-25.9,adult Start:16-Jul-2022 Instruction Type:Patient Education Patient Instructions Indication:Diabetes mellitus type 2, controlled Start:07-Jun-2022 Instruction Type:Provider Instructions for Treatment How to Access Health Informa tion Online using Patient Portal and 3[employer] Apps Indication:Diabetes mellitus type 2, controlled Start:07-Jun-2022 Instruction Type:Patient Education Patient Instructions Indication:BMI 26.0-26.9,adult Start:21-Jan-2022 Instruction Type:Provider Instructions for Treatment How to Access Health Informa tion Online using Patient Portal and [employer] Apps Indication:BMI 26.0-26.9,adult Start:21-Jan-2022 Instruction Type:Patient Education Patient Instructions Indication:Smoker Start:16-Oct-2021 Instruction Type:Provider Instructions for Treatment How to Access Health Informa tion Online using Patient Portal and [employer] Apps Indication:Smoker Start:16-Oct-2021 Instruction Type:Patient Education cardiovascular [...] Informa tion Online using Patient Portal and [email or web address] Apps Indication:BMI 26.0-26.9,adult Start:20-Jul-2023 Instruction Type:Patient Education Patient Instructions Indication:BMI 26.0-26.9,adult Start:03-Jun-2023 Instruction Type:Provider Instructions for Treatment How to Access Health Informa tion Online using Patient Portal and [email or web address]. [employer] Apps Indication:BMI 26.0-26.9,adult Start:03-Jun-2023 Instruction Type:Patient Education Patient Instructions Indication:Smoker Start:02-Mar-2023 Instruction Type:Provider Instructions for Treatment How to Access Health Informa tion Online using Patient Portal and [email or web address]. [employer] Apps Indication:Smoker Start:02-Mar-2023 Instruction Type:Patient Education Patient Instructions Indication:BMI 26.0-26.9,adult Start:29-Nov-2022 Instruction Type:Provider Instructions for Treatment How to Access Health Informa tion Online using Patient Portal and [employer] Apps Indication:BMI 26.0-26.9,adult Start:29-Nov-2022 Instruction Type:Patient Education Patient Instructions Indication:BMI 26.0-26.9,adult Start:28-Jul-2022 Instruction Type:Provider Instructions for Treatment How to Access Health Informa tion Online using Patient Portal and [employer] Apps Indication:BMI 26.0-26.9,adult Start:28-Jul-2022 Instruction Type:Patient Education cardiovascular counseling Indication:Coronary artery disease, non-occlusive Start:16-Jul-2022 Instruction Type:Provider Instructions for Treatment Patient Instructions Indication:BMI 25.0-25.9,adult Start:16-Jul-2022 Instruction Type:Provider Instructions for Treatment How to Access Health Informa tion Online using Patient Portal and [employer] Apps Indication:BMI 25.0-25.9,adult Start:16-Jul-2022 Instruction Type:Patient Education Patient Instructions Indication:Diabetes mellitus type 2, controlled Start:07-Jun-2022 Instruction Type:Provider Instructions for Treatment How to Access Health Informa tion Online using Patient Portal and [employer] Apps Indication:Diabetes mellitus type 2, controlled Start:07-Jun-2022 Instruction Type:Patient Education Patient Instructions Indication:BMI 26.0-26.9,adult Start:21-Jan-2022 Instruction Type:Provider Instructions for Treatment How to Access Health Informa tion Online using Patient Portal and [employer] Apps Indication:BMI 26.0-26.9,adult Start:21-Jan-2022 Instruction Type:Patient Education Patient Instructions Indication:Smoker Start:16-Oct-2021 Instruction Type:Provider Instructions for Treatment How to Access Health Informa tion Online using Patient Portal and [employer] Apps Indication:Smoker Start:16-Oct-2021 Instruction Type:Patient Education cardiovascular [...] for referral (narrative)No reason for [facility] Work Phone: Family History No Family History [...] February 20, 2014 9 :28pm Power of Pace Analyst No February 20, 2014 9:28pm Advance Directive Response Recorded Date/ Time Living Will No February 20, 2014 8 :28pm Power of Pace Analyst No February 20, 2014 8:28pm Chief Complaint [...] section and content) DATE CREATED AUTHOR 10/19/2019 [facility] DATE CREATED AUTHOR AUTHOR'S ORGANIZ ATION 12/01/2022 [facility] DATE CREATED AUTHOR AUTHOR'S ORGANIZ ATION 03/25/2024 [facility] DATE CREATED AUTHOR AUTHOR'S ORGANIZ ATION 05/31/2025 [facility] Goals (unrecognized section and content) Goals [...] Pr ovider, Attending Provider, Referring Provider Active Bindery Machine Feeder Offbearer Relationship Specialty Start Date End Date Abarham Helm (Hist) [facility] [address] [place] [address] [id number] PCP - General 01/08/03 Team Status: Active [...] or prosecute any alcohol or drug abuse patient.[facility] FOR RECORDS PERTAINING TO PATIENTS WHO ARE [...] BE BASED ON THE PRIMARY CLINICAL RECORDS. [facility] [employer] [facility]. provides no warranty or guarantee of the accuracy or completeness of information in this document.
[2025-08-25 13:19] LABS: Anion Gap 15 (5-15); BUN 22 mg/dL (4-19); BUN/Creat Ratio 17.4 RATIO (10-20); Calcium,Total 9.5 mg/dL (7.6-11.0); Carbon Dioxide 23.0 mmol/L (21.0-32.0); Chloride 102 mmol/L (98-108); Glucose 228 mg/dL (70-99); Potassium 4.1 mmol/L (3.3-5.1)
[2025-08-25 13:20] LABS: Troponin T High Sensitivity 530 ng/L (<=22)
--- NOTE | 2025-08-25 14:55 | NURSING ---
1455 pt in ICU 5 per bed from laborer/grade check, car barn laborer staff in attendance 1505 call from [facility] transfer line w/bed assignment 1530 family at bedside, update given, questions answered. 1545 after lengthy discussion w/ Physicians dispatch, ALS crew dispatched 1630 Physicians arrives. 1715 pt leaves for [facility]
--- NOTE | 2025-08-25 14:56 | PCI.CARDCATH ---
PCI Cardiac Cath Report PCI Report: PTCA of subtotal RCA/large dominant complex calcified lesion. 1. Moderate sedation 2. Selective left coronary angiography 3. Selective right coronary angiography. 4. PTCA of heavily calcified proximal RCA using balloon escalation 1.5 x 15, 2 x 15, 2.5 x 15, 3 x 12 mm NC balloon Suture applied to right common femoral artery vein and right common femoral artery sheath. Preprocedure diagnosis 89-year-old patient with severe coronary artery disease has a history of large anterior WV with previous PCI and stent at [place] by Dr. Burgos With stent to the proximal LAD. Had diffuse atherosclerosis involving mid to distal LAD. Patient has severe coronary atherosclerosis, smoker, hypertension Paroxysmal A-fib, on anticoagulation with Eliquis last dose was last night. This presentation he has symptoms of shortness of breath with dyspnea. Did have chest pain 3 days ago. And came into the ED because shortness of breath was worse And on evaluation in the ED patient has EKG changes in the inferior lead some ST elevations. In addition he has elevated high sensitive troponins up to 530. Patient was given heparin by EMS and brought into the ED I evaluated the patient in the ED and based on his clinical presentation, I took him to the [facility]. Consent; Risk and benefits of procedure explained detail to the patient informed consent obtained signed and placed in the chart. Diagnostic catheter interventional equipment used 1. 6 Gabonese sheath placed in the right radial artery 2. Long 6 Gabonese sheath placed, through the right common femoral artery 3. 6 Gabonese sheath placed in the right common femoral vein. 4. 5 Gabonese JL 3 5 diagnostic catheter 5. 5 Gabonese JR4 diagnostic catheter 6. 6 Gabonese JR4 guide 7. 6 Gabonese GuideLiner 8. 0.014 180 cm extra floppy run-through guidewire 9. 0.014 mm 180 cm BMW guidewire. 10. Multiple balloons with different sizes as specified above Procedure in detail; Patient brought to the [facility] as an emergency Access obtained from the left radial artery and we proceed with a 6 Gabonese placement in the left radial artery and proceed with the diagnostic catheter 5 Gabonese JL 3 Prior to that a cocktail of verapamil, heparin as well as nitroglycerin was given through the right radial artery. Angiographic view of the left coronary system were obtained Then the catheter exchanged for 5 Gabonese JR4 and ventriculography right consistently obtained. Angiographic views were studied noted patient had heavily calcified subtotal tortuous large dominant RCA Therefore we will proceed with interventional plan. And we will change the plan to right common femoral artery access through the fluoroscopy. And we used a long stiff wire which is a stiff Glidewire. We were able to put the long sheath. Then we will proceed with the JR4 guide cannulated the RCA and then we proceeded with the guide liner and were able to perform multiple balloon inflation for a complex lesion involving the proximal RCA as well as the mid RCA but were unable to pass the balloon to the RCA mid segment due to the tortuosity and calcification. ACT level was checked. Following multiple balloon inflation were unable to dilate the artery properly Due to the heavy calcification in addition to the lesion being in the mid segment which is at least like 70%. Unable to pass balloon to that site. Therefore we decided to terminate the procedure patient was stable clinically and hemodynamically he does not have any active chest pain Coronary angiography findings; 1. Left main is heavily calcified with extension of calcification into left main into left circumflex Left main angiographically has no significant atherosclerosis It bifurcates into LAD and left circumflex. 2. Left anterior descending proximal stent is patent With a diffuse atherosclerosis noted in the mid and the distal segment of the LAD. At the site of the Pharis diagonal there is a lesion in the mid LAD which is around 60 to 70%. With segmental lesion noted distal to that which is around 50-60. 3. The left circumflex is a large vessel and angiographically the proximal circumflex had nonobstructive sclerosis from 30-40. After the previous large OM1 there is a lesion in the ostial portion of the circumflex at the mid segment That is at least around 60 to 70% 4. RCA is a large dominant heavily calcified and very tortuous vessel with PTCA to the subtotal 99% proximal reducing the lesion to around 70%. I am maintaining a DESTIN-3 flow. Patient stable hemodynamically There is no ST elevation in the registered nurse cardiac. He has been in A-fib with controlled ventricular rate At this point I discussed plan of further intervention with retail operations managerGregg as the patient requested to be transferred to [place] I discussed the finding of cardiac catheterization and plan of referral to tertiary cardiac center with the cardiac surgery backup for complex heavily calcified lesion involving the large dominant RCA. She suture applied to right common femoral artery sheath and right common femoral vein sheaths. And will start on heparin and transferred the patient to [place]. No complication in the [facility] Alka Beckman MD, [facility], [facility] pantry worker.
--- NOTE | 2025-08-25 14:57 | EKG12_ITS ---
Test Reason : stemi post cath Blood Pressure : */* mmHG Vent. Rate : 84 BPM Atrial Rate : * BPM P-R Int : * ms QRS Dur : 70 ms QT Int : 424 ms P-R-T Axes : * 28 69 degrees QTcB Int : 501 ms Critical Test Result: STEMI Atrial fibrillation POOR DATA QULAITY, CAN NOT DETERMINE RHYTHM ECG IS NOT ABLE TO BE INTERPRETED Abnormal ECG When compared with ECG of 25-Aug-2025 12:30, MANUAL COMPARISON REQUIRED DATA IS UNCONFIRMED Confirmed by Braxton Alarcon ([id number]), web editor JEN LEAL ([id number]) on 08/26/2025 9:04:38 AM Referred By: Alka Beckman Confirmed By: Braxton Alarcon
[2025-08-25 15:02] LABS: ACT Activated Clotting Time 225 sec (74-137)
[2025-08-25 15:02] LABS: ACT Activated Clotting Time 189 sec (74-137)
--- NOTE | 2025-08-25 15:04 | CRPHASE1_ITS ---
Patient Communication Patient Information Former Patient:: Phase I PHII Cardiac Rehab Discussed with Patient:: Yes Guide to Cardiac Rehab Given to Patient:: Yes Cardiac Rehab Facility Choice List Given to Patient:: Yes Communication to Cardiac Rehab Hebrew Professor:: Alka Beckman Phase II Cardiac Rehab:: Yes Sessions:: 36 sessions - 3 days/wk, 12 weeks Cardiac Rehabilitation Info Program Information Cardiac Rehabilitation Program Information: Cardiac Rehab The cardiac rehab team at [facility] consists of highly skilled exercise physiologists, nurses, respiratory therapists and physicians working together with you. Our purpose is to help you have a full recovery and achieve the goals you set for yourself. Over the years many of our patients have returned to activities they assumed they would never do again! We can help restore your confidence and motivation to make lifestyle changes that can have a significant impact on your health and quality of life! We can help answer questions and concerns you may have about exercise, lifestyle, medications, diet, stress and anxiety which are common following a hospitalization. WE monitor ECG and vital signs during exercise and discuss your progress with you and report to your physician(s). Cardiac Rehab is proven to help reduce readmissions, improve functional capacity and lower recurrence of problems with your heart. Our Cardiac Rehab program is Certified by the [place] [employer] ([employer]ACVPR) and Accredited by the [employer] [place] [employer] through our [facility]. You can contact us at . We invite you to call us with your questions or to get started in our program. If you have other questions or concerns be sure to ask your physician/provider during your follow-up visit. WE look forward to seeing you!
--- NOTE | 2025-08-25 15:05 | CRPH1.INSTRU ---
General Education Discussed with Patient CAD and cardiac anatomy and function:: Patient communicates acknowledgment Explanation of diagnoses and procedures:: Patient communicates acknowledgment Sign/Symptoms of [place]:: Patient communicates acknowledgment Antiplatelet therapy: Patient communicates acknowledgment Proper use of NTG-SL: Patient communicates acknowledgment Emergency procedures and activation of EMS: Patient communicates acknowledgment Compliance of all prescribed medications: Patient communicates acknowledgment Smoking Risk Factors Patient Nicotine/Smoking Risk Factors Are:: Cigarettes Recommendations Recommendations Include:: Smoking cessation strategies/Smoking packet Response Code Nicotine/Smoking Response Code:: Patient communicates acknowledgment Dyslipidemia Recommendations Recommendations Include:: Lipid profile not available Response Code Dyslipidemia Response Code:: Patient communicates acknowledgment Overweight/Obesity Risk Factors Patient Overweight/Obesity Risk Factors Are:: BMI Normal [18-25 & < 65 years old] Recommendations Recommendations Include:: Exercise 5-7 times/week Response Code Overweight/Obesity:: Patient communicates acknowledgment Hypertension Recommendations Recommendations Include:: Maintain BP <130/85 Response Code Hypertension:: Patient communicates acknowledgment Heart Disease Risk Factors Patient Heart Disease Risk Factors Are:: Previous cardiac event Recommendations Recommendations Include:: Educated family members of their risk Response Code Heart Disease Response Code:: Patient communicates acknowledgment Diabetes Risk Factors Patient Diabetes Risk Factors Are:: No documented hx of diabetes Response Code Diabetes:: Patient communicates acknowledgment Metabolic Syndrome Recommendations Recommendations Include:: Does not meet criteria Response Code Metabolic Syndrome Response Code:: Patient communicates acknowledgment Sedentary Recommendations Recommendations Include:: Benefits of regular exercise and Discussed home walking program Response Code Sedentary Response Code:: Patient communicates acknowledgment Stress Recommendations Recommendations Include:: Identification of stressors, and assessment of coping skills and Stress management techniques Response Code Stress Response Code:: Patient communicates acknowledgment
--- NOTE | 2025-08-26 07:38 | ECQM.STEMI ---
STEMI STEMI ED Door Time / Other REG STEMI EKG Time (1) ST elevation (STEMI) myocardial infarction: Acute 08/25/25 12:32 Balloon/Aspiration Date-Time Date of Balloon/Aspiration:: 08/25/25 Time of Balloon/Aspiration:: 13:38
== END 2025-08-25 17:15 | disposition short-term general hospital (02) | DRG 251 ==
LOC: ED 12:43 → ICU 12:46
PROVIDERS: Admitting Provider Internal Medicine Interventional Cardiology; Emergency Provider Emergency Medicine; PCP Internal Medicine; Referring Provider Internal Medicine Interventional Cardiology; Visit Provider Internal Medicine Interventional Cardiology
DX: I21.11 ST elevation (STEMI) myocardial infarction involving right coronary artery (principal); E11.9 Type 2 diabetes mellitus without complications; J44.9 Chronic obstructive pulmonary disease, unspecified; I10 Essential (primary) hypertension; I48.0 Paroxysmal atrial fibrillation; I25.10 Atherosclerotic heart disease of native coronary artery without angina pectoris; I25.2 Old myocardial infarction; F17.290 Nicotine dependence, other tobacco product, uncomplicated; E78.5 Hyperlipidemia, unspecified; Z95.5 Presence of coronary angioplasty implant and graft; Z79.899 Other long term (current) drug therapy; Z79.01 Long term (current) use of anticoagulants; Z79.51 Long term (current) use of inhaled steroids
CPT/HCPCS: 36415; 80048; 82962; 84484; 85025; 85347; 85610; 85730; 92941; 93005; 93454; 99281; C1725; C1769; C1894; Q9967; C1887; C9606

== ENCOUNTER → 2025-09-23 | Outpatient (CLI) | payer MEDICARE, SELFPAY ==
[2025-09-23 15:15] LABS: Hematocrit 32.3 % (40-54); Hemoglobin 10.6 g/dL (13.0-16.5); Mean Corp Hgb Conc 32.8 g/dL (32-36); Mean Corpuscular Volume 93.4 fL (80-94); Mean Platelet Vol. 10.7 fl (6.2-12.0); Platelet Count 149 K/mm3 (150-450); RBC Distribution Width CV 14.1 % (11.6-14.6); RBC Distribution Width SD 47.3 fl (35.1-43.9); Red Blood Count 3.46 M/mm3 (4.6-6.2); White Blood Count 6.9 K/mm3 (4.4-11.0)
[2025-09-23 15:37] LABS: Anion Gap 8 (7-18); BUN 14 mg/dL (4-19); BUN/Creat Ratio 14.7 RATIO (10-20); Calcium,Total 8.9 mg/dL (7.6-11.0); Carbon Dioxide 25.7 mmol/L (20.0-29.0); Chloride 107 mmol/L (96-106); Glucose 110 mg/dL (70-99); Potassium 4.2 mmol/L (3.5-5.1)
== END | disposition home or self-care (01) ==
PROVIDERS: PCP Internal Medicine
DX: I25.10 Atherosclerotic heart disease of native coronary artery without angina pectoris (principal); I48.0 Paroxysmal atrial fibrillation; I25.2 Old myocardial infarction
CPT/HCPCS: 36415; 80048; 84439; 84443; 85027